=== PATIENT | female | born 1970 | race Caucasian/White ===

== ENCOUNTER 2019-11-28 14:51 | Emergency (ER) | payer OTHER, SELFPAY ==
--- NOTE | ~2019-11-28 | CT_ITS ---
EXAMINATION: CT abdomen pelvis w con EXAM DATE: 11/28/2019 19:39 INDICATION: Epigastric pain. TECHNIQUE: Spiral CT of the abdomen and pelvis was performed following intravenous injection of 100 m L Omnipaque 350. Axial, coronal and sagittal images were reviewed. The dose-length product (DLP) fo r this examination was 1500.73 mGy-cm. The exposure was tailored according to patient size (auto mA exposure control), and iterative reconstruction (ASIR) was used as additional dose reduction techniqu e. Comparison is made to prior examination from 01/30/2019. FINDINGS: The liver, spleen, adrenal glands and pancreas are unremarkable. There are cholecystectomy clips. Portal and splenic veins are patent. Kidneys enhance symmetrically. There is no hydronephr osis. There is IUD which appears to be centrally located within the endometrium, expected position. The bladder is unremarkable. There is no retroperitoneal or pelvic lymphadenopathy. There is mil d scattered arteriosclerotic disease. The appendix is normal. The stomach and small bowel are unremarkable. There is expected amount of c olonic stool. No free intraperitoneal gas. The heart is normal in size. There are no pericardial or pleural effusions. The lung bases are unremarkable. There are no osteoblastic or osteolytic les ions identified. IMPRESSION: 1. No acute intra-abdominal findings. Reviewed, dictated and finalized at location A.
[2019-11-28 14:52] VITALS: BP 180/99; PULSE 128; RESP 18; TEMP 36.4; O2SAT 100
[2019-11-28 15:23] LABS: Basophils Percent Auto 0.1 % (0.2-1.2); Eosinophils Absolute Auto 0.2 K/mm3 (0-0.3); Eosinophils Percent Auto 1.6 % (0-4.4); Hematocrit 47.5 % (37.0-47.0); Hemoglobin 15.8 g/dL (12.0-15.0); Immature Granulocyte Absolute 0.05 K/mm3 (0.00-0.031); Immature Granulocyte Percent A 0.4 % (0-0.5); Lymphocytes Absolute Auto 4.46 K/mm3 (0.9-3.2); Mean Corpuscular HGB Conc 33.3 g/dl (32-36); Mean Corpuscular Hemoglobin 27.4 pg (26-34); Mean Corpuscular Volume 82.5 fl (80-100); Mean Platelet Volume 9.4 fl (7.4-10.4); Monocytes Absolute Auto 0.8 K/mm3 (0.1-0.6); Monocytes Percent Auto 6.8 % (2.6-8.5); Neutrophils Percent Auto 52.1 % (45.5-73.1); Platelet Count Result 245 k/mm3 (150-375); Red Blood Count 5.76 M/mm3 (4.2-5.4); Red Cell Distribution Width 13.5 % (11.5-14.5); White Blood Count 11.4 K/mm3 (4.5-10.0)
[2019-11-28 15:28] LABS: Add Urine Microscopic? YES; Appearance Urine Clear (Clear); Bilirubin Urine Negative (Negative); Blood Urine Negative (Negative); Color Urine Straw (Yellow); Glucose Urine UA 3+ mg/dL (Negative); Ketones Urine Negative (Negative); Leukocyte Esterase Ur Negative LEU/UL (Negative); Mucus Urine Rare /lpf; Nitrate Urine Negative (Negative); Protein Urine Negative (Negative); RBC Urine 0-2 /hpf (0-2); Squamous Epithelial Cell Urine Rare /hpf (Few); Urobilinogen Urine Negative mg/dL (<2.0); WBC Urine 0-3 /hpf
[2019-11-28 15:35] LABS: Specific Grav Ur 1.033 (1.001-1.035)
[2019-11-28 15:42] LABS: Alanine Aminotransferase 20 U/L (4-35); Albumin Level 4.8 g/dL (3.5-5.1); Alkaline Phosphatase 77 U/L (38-126); Aspartate Amino Transferase 24 U/L (14-36); Bilirubin,Total 0.5 mg/dL (0.2-1.3); Blood Urea Nitrogen 12 mg/dL (7-17); Calcium 9.5 mg/dL (8.4-10.2); Carbon Dioxide 26 mmol/L (22-30); Chloride 102 mmol/L (98-107); Estimated CRCL calculation 164 ml/min; Estimated Glomerular Filt Rate > 60; Glucose 143 mg/dL (65-105); Lipase 140 U/L (23-300); Sodium 138 mmol/L (137-145)
--- NOTE | 2019-11-28 17:45 | ED.ABDPAIN ---
HPI - Abdominal Pain General Chief Complaint: Abdominal Pain <MARIO Sharp Last Filed: 11/28/19 20:23> Stated Complaint: abd pain <MARIO Sharp Last Filed: 11/28/19 20:23> Time Seen by Provider: 11/28/19 17:30 <MARIO Sharp Last Filed: 11/28/19 20:23> Source: patient <MARIO Sharp Last Filed: 11/28/19 20:23> Mode of arrival: ambulatory <MARIO Sharp Last Filed: 11/28/19 20:23> Limitations: no limitations <MARIO Sharp Last Filed: 11/28/19 20:23> History of Present Illness HPI narrative: This is a 49 year old female that presents to the ER for upper abdominal pain x 3 weeks. Reports intermittent sharp LUQ abdominal pain. Associated with nausea. Reports sometimes the pain does go up under her left breast. Denies fever, shortness of breath, vomiting, dysuria, or hematuria. <MARIO Sharp Last Filed: 11/28/19 20:23> Related Data Home Medications: Home Medications Medication Instructions Recorded Confirmed ertugliflozin [Steglatro] mg DAILY 11/28/19 fluoxetine mg DAILY 11/28/19 lisinopril DAILY 11/28/19 metformin mg BID 11/28/19 simvastatin mg HS 11/28/19 sitagliptin [Januvia] mg DAILY 11/28/19 <MARIO Sharp Last Filed: 11/28/19 20:23> Allergies/Adverse Reactions: Allergies Allergy/AdvReac Type Severity Reaction Status Date / Time clindamycin Allergy Unknown Hives / Verified 11/28/19 15:45 Red Face sulfamethoxazole Allergy Unknown Rash Verified 11/28/19 15:45 trimethoprim Allergy Unknown Rash Verified 11/28/19 15:45 acetaminophen AdvReac Intermediate Other Verified 11/28/19 15:45 celecoxib AdvReac Mild Unknown Verified 11/28/19 15:45 propoxyphene AdvReac Unknown Unknown Verified 11/28/19 15:45 hydrocodone [From Lortab] AdvReac Unknown Verified 11/28/19 15:45 <Dee Dee Lowe PA-C - Last Filed: 11/28/19 20:23> Review of Systems Review of Systems: Narrative: CONSTITUTIONAL: Denies fever ENT: Denies rhinorrhea, congestion, sore throat CARDIOVASCULAR: Reports chest pain RESPIRATORY: Denies cough or dyspnea. GASTROINTESTINAL: Reports abdominal pain, nausea. Denies vomiting, or diarrhea. GENITOURINARY: Denies dysuria or hematuria. <Dee Dee Lowe PA-C - Last Filed: 11/28/19 20:23> All systems reviewed & are unremarkable except as noted in HPI and below <Dee Dee Lowe PA-C - Last Filed: 11/28/19 20:23> [facility] Past Medical History Medical History: Medical History (Updated 11/29/19 @ 00:00 by Agatha Santos) Diabetes mellitus History of DVT (deep vein thrombosis) History of pulmonary embolism <Dee Dee Lowe PA-C - Last Filed: 11/28/19 20:23> Surgical History Surgical History: Surgical History History of orthopedic surgery <Dee Dee Lowe PA-C - Last Filed: 11/28/19 20:23> Social History Social History: Social History (Updated 07/11/19 @ 17:36 by Rafi Vivas PA-C) Smoking status: Current every day smoker Second hand tobacco smoke exposure: No Smoking end date: 07/20/13 Alcohol intake: current Gender identity (if verbalized by the patient): Female <Dee Dee Lowe PA-C - Last Filed: 11/28/19 20:23> Exam Narrative: Exam Narrative: GENERAL: Well-appearing, obese, and in no acute distress. HEAD: Normocephalic, atraumatic. EYES: EOMI. CHEST: Clear to auscultation. No respiratory distress. No wheezes rales or rhonchi HEART: Regular rate and rhythm. No murmur heard. Normal peripheral pulses. ABDOMEN: Soft, nondistended, normal active bowel sounds. Mild tenderness to palpation of the epigastrium and LUQ without guarding EXTREMITIES: Normal range of motion. No edema. SKIN: Warm, dry, no rash. NEURO: No focal deficits. Alert and oriented x3. PSYCH: Normal mood and affect <Dee Dee Lowe PA-C - Last Filed: 11/28/19 20:23> Course Vital Signs Vital si
--- NOTE | 2019-11-28 17:46 | ECG_ITS ---
Measurements Intervals [place] Rate: 104 P: 54 CA: 182 QRS: 59 QRSD: 85 T: 63 QT: 337 QTc: 444 Interpretive Statements SINUS TACHYCARDIA ABNORMAL ECG Electronically Signed On 11-28-2019 18:12:57 CDT by Cash Lind D.O.
[2019-11-28] MEDS: FAMOTIDINE 20 MG/2 ML VIAL IV PUSH (17:52)
[2019-11-28] MEDS: ONDANSETRON INJ 4 MG/2 ML VIAL IV PUSH (17:52)
[2019-11-28] MEDS: SODIUM CHLORIDE 0.9% IV 500 ML 999 ML IV CONT (17:52)
[2019-11-28] MEDS: KETOROLAC 30 MG/ML VIAL (*BKC) IV PUSH (17:53)
[2019-11-28 18:51] LABS: D Dimer 0.27 ug/mL (<0.48)
[2019-11-28 20:14] VITALS: BP 124/74; PULSE 99; RESP 18; O2SAT 96
[2019-11-28 20:35] VITALS: BP 138/70; PULSE 78; RESP 20; O2SAT 99
== END 2019-11-28 20:36 | disposition home or self-care (01) ==
PROVIDERS: Physician Assistant; Emergency Provider Emergency Medicine; PCP Family Medicine
DX: R10.12 Left upper quadrant pain (principal); E11.9 Type 2 diabetes mellitus without complications; Z86.718 Personal history of other venous thrombosis and embolism; Z86.711 Personal history of pulmonary embolism; Z87.891 Personal history of nicotine dependence; Z79.84 Long term (current) use of oral hypoglycemic drugs; R00.0 Tachycardia, unspecified
CPT/HCPCS: 36415; 74177; 80053; 81001; 81025; 83690; 85025; 85380; 93005; 96361; 96374; 96375; 99284; J1885; J2405; J7040; Q9967

== ENCOUNTER 2020-04-13 17:16 | Emergency (ER) | payer OTHER, SELFPAY ==
--- NOTE | ~2020-04-13 | CT_ITS ---
EXAMINATION: CT abdomen pelvis wo con DATE: 04/13/2020 20:44 INDICATION: Right flank pain TECHNIQUE: Computed tomography (CT) of the abdomen and pelvis was performed without intravenous contr ast. The dose-length product (DLP) was 845.92 mGy-cm. Automated exposure control and iterative recons truction technique were employed. COMPARISON: 11/28/2019 FINDINGS: Minimal dependent atelectasis is present in the lung bases. The heart size is normal. There is a small sliding hiatal hernia. The gallbladder is surgically absent. The liver, spleen, pancreas, and adrenal glands are normal. The kidneys are unremarkable. No stones are identified in the kidneys , ureters, or bladder. There is no hydronephrosis or hydroureter. The appendix is normal. No patholog ically enlarged abdominal or pelvic lymph nodes are identified. There is no free intraperitoneal gas or evidence of bowel obstruction. The IUD has been removed from the uterus. 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 IMPRESSION: 1. No CT correlate for the patient's symptoms. Reviewed, dictated and finalized at location A.
[2020-04-13 17:41] VITALS: BP 141/88; PULSE 115; RESP 18; TEMP 36.7; O2SAT 99
[2020-04-13 18:20] LABS: Basophils Percent Auto 0.3 % (0.2-1.2); Eosinophils Absolute Auto 0.2 K/mm3 (0-0.3); Hematocrit 45.6 % (37.0-47.0); Immature Granulocyte Absolute 0.05 K/mm3 (0.00-0.031); Immature Granulocyte Percent A 0.5 % (0-0.5); Lymphocytes Absolute Auto 4.24 K/mm3 (0.9-3.2); Lymphocytes Percent Auto 39.5 % (18.3-44.2); Mean Corpuscular HGB Conc 32.9 g/dl (32-36); Mean Corpuscular Hemoglobin 27.6 pg (26-34); Mean Corpuscular Volume 83.8 fl (80-100); Mean Platelet Volume 10.7 fl (7.4-10.4); Monocytes Absolute Auto 0.9 K/mm3 (0.1-0.6); Monocytes Percent Auto 8.4 % (2.6-8.5); Neutrophils Absolute Auto 5.3 K/mm3 (1.3-6.7); Neutrophils Percent Auto 49.3 % (45.5-73.1); Platelet Count Result 239 k/mm3 (150-375); Red Blood Count 5.44 M/mm3 (4.2-5.4); Red Cell Distribution Width 13.2 % (11.5-14.5); White Blood Count 10.7 K/mm3 (4.5-10.0)
[2020-04-13 18:22] LABS: Add Urine Microscopic? YES; Appearance Urine Clear (Clear); Bilirubin Urine Negative (Negative); Blood Urine Negative (Negative); Color Urine Straw (Yellow); Glucose Urine UA 3+ mg/dL (Negative); Ketones Urine Negative (Negative); Leukocyte Esterase Ur Negative LEU/UL (Negative); Mucus Urine Rare /lpf; Nitrate Urine Negative (Negative); Protein Urine Negative (Negative); RBC Urine 0-2 /hpf (0-2); Specific Grav Ur 1.017 (1.001-1.035); Squamous Epithelial Cell Urine Rare /hpf (Few); Urobilinogen Urine Negative mg/dL (<2.0); WBC Urine 0-3 /hpf
[2020-04-13 18:31] LABS: Anion Gap 9 mmol/L (8-16); Blood Urea Nitrogen 19 mg/dL (7-17); Calcium 9.7 mg/dL (8.4-10.2); Carbon Dioxide 24 mmol/L (22-30); Chloride 100 mmol/L (98-107); Estimated CRCL calculation 162 ml/min; Estimated Glomerular Filt Rate > 60; Glucose 327 mg/dL (65-105); Potassium 3.9 mmol/L (3.4-5.0); Sodium 133 mmol/L (137-145)
[2020-04-13 19:24] VITALS: BP 142/95; PULSE 113; RESP 18; TEMP 36.8; O2SAT 99
[2020-04-13 19:41] LABS: Lipase 227 U/L (23-300)
[2020-04-13 20:42] LABS: Alanine Aminotransferase 20 U/L (4-35); Alkaline Phosphatase 69 U/L (38-126); Aspartate Amino Transferase 21 U/L (14-36)
--- NOTE | 2020-04-13 20:47 | ED.ABDPAIN ---
HPI - Abdominal Pain General Chief Complaint: Abdominal Pain Stated Complaint: rt flank pain, rt abd pain, dark urine Time Seen by Provider: 04/13/20 19:20 Source: patient Mode of arrival: ambulatory Limitations: no limitations History of Present Illness HPI narrative: Patient presents with chief complaint of right upper quadrant abdominal pain that has been present for the past 3 weeks and worsens when she eats drinks or uses the bathroom. Patient states that she has not seen her primary care Dr. Kirkpatrick because the last time she was there she went off on his nurse for being made to see the Nurse Practitioner. Patient denies fever, chills, vomiting, diarrhea, cough, shortness of breath, chest pain, back injury. Patient states her urine has been darker and she has noticed some urgency, but denies pain with urination. She reports her symptoms worsens when she eats, so she has to be selective with food and occasionally vomits. She has been able to keep down most of her foods and a lot of fluids. Related Data Home Medications Medication Instructions Recorded Confirmed lisinopril DAILY 11/28/19 metformin mg BID 11/28/19 simvastatin mg HS 11/28/19 sitagliptin [Januvia] mg DAILY 11/28/19 insulin lispro [Admelog U-100 04/13/20 Insulin lispro] liraglutide [Victoza 2-Edward] mg SUBCUT 04/13/20 simvastatin mg 04/13/20 Allergies Allergy/AdvReac Type Severity Reaction Status Date / Time clindamycin Allergy Unknown Hives / Verified 04/13/20 19:34 Red Face sulfamethoxazole Allergy Unknown Rash Verified 04/13/20 19:34 trimethoprim Allergy Unknown Rash Verified 04/13/20 19:34 celecoxib AdvReac Mild Unknown Verified 04/13/20 19:34 propoxyphene AdvReac Unknown Unknown Verified 04/13/20 19:34 hydrocodone [From Lortab] AdvReac Unknown Verified 04/13/20 19:34 Review of Systems Review of Systems: Narrative: CONSTITUTIONAL: Denies fever, chills, or sweats. EYES: Denies visual changes, redness, or discharge. ENT: Denies rhinorrhea, congestion, sore throat, or otalgia. CARDIOVASCULAR: Denies chest pain, palpitations, or edema. RESPIRATORY: Denies cough or dyspnea. GASTROINTESTINAL: Reports abdominal pain, nausea, reports occasional vomiting Denies diarrhea. GENITOURINARY: Denies dysuria or hematuria. SKIN: Denies rash or itching. MUSCULOSKELETAL: Denies back pain, myalgia, or joint pain NEUROLOGIC: Denies headache, numbness, dizziness, or weakness. PSYCHIATRIC: Denies anxiety or depression. [facility] Past Medical History Medical History (Updated 04/13/20 @ 21:05 by Luba Montez PA-C) Diabetes mellitus History of DVT (deep vein thrombosis) History of pulmonary embolism Surgical History Surgical History History of orthopedic surgery Social History Social History (Updated 07/11/19 @ 17:36 by Rafi Vivas PA-C) Smoking status: Current every day smoker Second hand tobacco smoke exposure: No Smoking end date: 07/20/13 Alcohol intake: current Gender identity (if verbalized by the patient): Female Exam Narrative: Exam Narrative: GENERAL: Well-appearing, well-nourished. HEAD: Normocephalic, atraumatic. EYES: PERRLA and EOMI. ENT: Nares clear, no rhinorrhea or epistaxis. Mucous membranes moist. Oropharynx without tonsillar hypertrophy exudate or other lesions. Bilateral TMs pearly trammell nonbulging NECK: Supple. No adenopathy or masses. No vertebral tenderness or loss of ROM. CHEST: Clear to auscultation. No respiratory distress. No wheezes rales or rhonchi HEART: Regular rate and rhythm. Normal peripheral pulses. ABDOMEN: Soft, diffuse abdominal tenderness with palpation, nondistended, normal active bowel sounds. No bruises noted. EXTREMITIES: No acute changes in ROM. No edema. SKIN: Warm, dry, no rash. NEURO: No focal deficits. Alert and oriented x3. PSYCH: Normal mood and affect. Course Course Emergency Course: Patient now reports that s
[2020-04-13 21:09] VITALS: BP 130/80; PULSE 103; RESP 20; O2SAT 96
[2020-04-13] MEDS: KETOROLAC 15 MG/ML VIAL (*BKC) IV PUSH (21:53)
[2020-04-13] MEDS: PANTOPRAZOLE SODIUM IV 40 MG VIAL IV PUSH (21:54)
[2020-04-13 22:18] VITALS: BP 129/78; PULSE 104; RESP 18; TEMP 36.6; O2SAT 99
== END 2020-04-13 22:21 | disposition home or self-care (01) ==
PROVIDERS: Emergency Medicine; Physician Assistant; Emergency Provider Emergency Medicine; PCP Family Medicine
DX: R10.11 Right upper quadrant pain (principal); Z79.4 Long term (current) use of insulin; Z79.84 Long term (current) use of oral hypoglycemic drugs; E11.9 Type 2 diabetes mellitus without complications; Z86.718 Personal history of other venous thrombosis and embolism; Z86.711 Personal history of pulmonary embolism; F17.200 Nicotine dependence, unspecified, uncomplicated
CPT/HCPCS: 36415; 74176; 80048; 81001; 83690; 84075; 84450; 84460; 85025; 96374; 96375; 99284; C9113; J1885

== ENCOUNTER 2020-05-20 08:29 | Emergency (ER) | payer OTHER, SELFPAY ==
[2020-05-20 08:38] VITALS: BP 172/90; PULSE 110; RESP 18; TEMP 37.8; O2SAT 100
--- NOTE | 2020-05-20 08:52 | ED.GENADULT ---
HPI - General Adult General Chief complaint: Skin/Abscess/Foreign Body Stated complaint: Hives Source: patient Mode of arrival: ambulatory Limitations: no limitations History of Present Illness HPI narrative: Patient presents for evaluation of pruritus and hives since 0200 this morning. No new lotions, soaps, detergents, topical products, foods. No history of similar symptoms. Denies any difficulty breathing or swallowing. She took some Benadryl at the time of symptom onset and symptoms have persisted. She does have an underlying history of diabetes but is compliant with Metformin and Januvia. She also has an insulin pump. No additional complaints or concerns. Blood sugars have been running around 200. She states she was recently seen by GI Who believes that she may have ulcerative colitis. She has not undergone EGD or colonoscopy as of yet. Related Data Home Medications Medication Instructions Recorded Confirmed lisinopril DAILY 11/28/19 metformin mg BID 11/28/19 simvastatin mg HS 11/28/19 sitagliptin [Januvia] mg DAILY 11/28/19 insulin lispro [Admelog U-100 04/13/20 Insulin lispro] liraglutide [Victoza 2-Edward] mg SUBCUT 04/13/20 simvastatin mg 04/13/20 Allergies Allergy/AdvReac Type Severity Reaction Status Date / Time clindamycin Allergy Unknown Hives / Verified 05/20/20 08:42 Red Face sulfamethoxazole Allergy Unknown Rash Verified 05/20/20 08:42 trimethoprim Allergy Unknown Rash Verified 05/20/20 08:42 celecoxib AdvReac Mild Unknown Verified 05/20/20 08:42 propoxyphene AdvReac Unknown Unknown Verified 05/20/20 08:42 hydrocodone [From Lortab] AdvReac Unknown Verified 05/20/20 08:42 Review of Systems Review of Systems: Narrative: CONSTITUTIONAL: Denies fever, chills, or sweats. EYES: Denies visual changes, redness, or discharge. ENT: Denies rhinorrhea, congestion, sore throat, or otalgia. CARDIOVASCULAR: Denies chest pain, palpitations, or edema. RESPIRATORY: Denies cough or dyspnea. GASTROINTESTINAL: Denies abdominal pain, nausea, vomiting, or diarrhea. GENITOURINARY: Denies dysuria or hematuria. SKIN: Reports pruritis and hives to bilateral upper extremities, bilateral lower extremities, and trunk MUSCULOSKELETAL: Denies back pain, joint pain, or myalgia. NEUROLOGIC: Denies headache, numbness, dizziness, or weakness. PSYCHIATRIC: Denies anxiety or depression. [facility] Past Medical History Medical History (Updated 05/20/20 @ 09:02 by JADE Chester, KENZIE) Diabetes mellitus History of DVT (deep vein thrombosis) History of pulmonary embolism Hyperlipidemia Hypertension Surgical History Surgical History History of bilateral knee replacement History of cholecystectomy History of orthopedic surgery History of tonsillectomy Family History Family History Mother No problems noted. Social History Social History Smoking status: Current every day smoker Second hand tobacco smoke exposure: No Smoking end date: 07/20/13 Alcohol intake: current Substance use: never Living arrangements: with family Gender identity (if verbalized by the patient): Female Sexual Orientation (if Verbalized by the Patient): Straight or Heterosexual Comments Pt is unaware of maternal or paternal medical history as pt was adopted Exam Narrative: Exam Narrative: GENERAL: Well-appearing, well-nourished, and in no acute distress. HEAD: Normocephalic, atraumatic. EYES: PERRLA and EOMI. ENT: Nares clear, no rhinorrhea or epistaxis. Mucous membranes moist. Oropharynx without tonsillar hypertrophy exudate or other lesions. Bilateral TMs pearly trammell nonbulging. No posterior pharyngeal swelling NECK: Supple. No adenopathy or masses. No carotid bruits or JVD CHEST: Clear to auscultation. No respiratory distress
[2020-05-20] MEDS: methylPREDNISolone SOD SUCC 125 MG VIAL IM (09:07)
== END 2020-05-20 09:24 | disposition home or self-care (01) ==
PROVIDERS: Emergency Provider Nurse Practitioner; PCP Family Medicine
DX: L23.9 Allergic contact dermatitis, unspecified cause (principal); F17.200 Nicotine dependence, unspecified, uncomplicated; Z96.653 Presence of artificial knee joint, bilateral; E11.9 Type 2 diabetes mellitus without complications; Z86.718 Personal history of other venous thrombosis and embolism; Z86.711 Personal history of pulmonary embolism; E78.5 Hyperlipidemia, unspecified; I10 Essential (primary) hypertension
CPT/HCPCS: 96372; 99213; G0463; J2930

== ENCOUNTER 2020-11-09 08:17 | Emergency (ER) | payer OTHER, SELFPAY ==
--- NOTE | ~2020-11-09 | XR_ITS ---
XR chest 2V DATE: 11/09/2020 08:49 INDICATION: Cough TECHNIQUE: 2 views COMPARISON: 07/13/2011 2 view chest FINDINGS: Normal heart size. Aortic arch calcification. No hilar or mediastinal enlargement. No pulmo nary infiltrate or consolidation, pleural effusion or pulmonary vascular congestion or pneumothorax. Included skeletal structures are unremarkable other than mild degenerative spurring of the thoracic s pine. IMPRESSION: No active cardiopulmonary disease Reviewed, dictated and finalized at location A.
--- NOTE | 2020-11-09 08:35 | ED.URI ---
HPI - URI/Sore Throat General Chief Complaint: Upper Respiratory Infection Stated Complaint: Congestion Time Seen by Provider: 11/09/20 08:27 Source: patient and RN notes reviewed Mode of arrival: ambulatory Limitations: no limitations History of Present Illness HPI Narrative: Patient presents today with 3-day history of nasal congestion, fever up to 100.4, nonproductive cough, body aches, sore throat, shortness of breath, decreased taste. Fever just appeared yesterday. Denies rhinorrhea, nausea, vomiting, diarrhea. Denies history of asthma or COPD. She smokes approximately 6 cigarettes/day. 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 She has had her 2 course vaccine of COVID-19. Last vaccine was approximately 2 weeks ago. Patient started Mucinex and Sudafed yesterday without much relief. Does report history of seasonal allergies, but does not currently take any allergy medication. MD elicited complaint: fever, cough and nasal congestion Related Data Home Medications Medication Instructions Recorded Confirmed lisinopril DAILY 11/28/19 metformin mg BID 11/28/19 simvastatin mg HS 11/28/19 sitagliptin [Januvia] mg DAILY 11/28/19 insulin lispro [Admelog U-100 04/13/20 Insulin lispro] liraglutide [Victoza 2-Edward] mg SUBCUT 04/13/20 simvastatin mg 04/13/20 Allergies Allergy/AdvReac Type Severity Reaction Status Date / Time clindamycin Allergy Unknown Hives / Verified 05/20/20 08:42 Red Face sulfamethoxazole Allergy Unknown Rash Verified 05/20/20 08:42 trimethoprim Allergy Unknown Rash Verified 05/20/20 08:42 celecoxib AdvReac Mild Unknown Verified 05/20/20 08:42 propoxyphene AdvReac Unknown Unknown Verified 05/20/20 08:42 hydrocodone [From Lortab] AdvReac Unknown Verified 05/20/20 08:42 Review of Systems Review of Systems: Narrative: CONSTITUTIONAL: Denies chills, or sweats. + Aches, fever EYES: Denies visual changes, redness, or discharge. ENT: Denies rhinorrhea, or otalgia.+ Nasal congestion, sore throat, decreased taste CARDIOVASCULAR: Denies chest pain, palpitations, or edema. RESPIRATORY: + Nonproductive cough, shortness of breath GASTROINTESTINAL: Denies abdominal pain, nausea, vomiting, or diarrhea. GENITOURINARY: Denies dysuria or hematuria. SKIN: Denies rash, itching, or wounds. MUSCULOSKELETAL: Denies back pain, joint pain, or myalgia. NEUROLOGIC: Denies headache, numbness, tingling, or weakness. PSYCH: Denies depression or anxiety. [facility] Past Medical History Medical History Diabetes mellitus History of DVT (deep vein thrombosis) History of pulmonary embolism Hyperlipidemia Hypertension Surgical History Surgical History History of bilateral knee replacement History of cholecystectomy History of orthopedic surgery History of tonsillectomy Family History Family History Mother No problems noted. Social History Social History Smoking status: Current every day smoker Second hand tobacco smoke exposure: No Smoking end date: 07/20/13 Alcohol intake: current Substance use: never Gender identity (if verbalized by the patient): Female Comments At time of signature, I have reviewed and agree with nursing past medical, surgical, social and family history unless otherwise noted. Please see nursing chart for further information. There is no relevant family history pertinent to the presenting complaint Exam Narrative: Exam Narrative: GENERAL: Ill-appearing, well-nourished, and in no acute distress. HEAD: Normocephalic, atraumatic. EYES: EOMI. No redness or drainage. Conjunctivae normal. ENT: Mucous membranes pink and moist. Nares congested. No rhinorrhea. TMs normal bilaterally. Throat mildly erythematous without edema or exudate. Uvula midli
[2020-11-09] MEDS: IPRATROPIUM BR 0.02% INH SOLN 0.5 MG/2.5 ML VIAL INHALATION (08:49)
[2020-11-09] MEDS: ALBUTEROL SULFATE NEB 2.5 MG/3 ML INH INHALATION (08:50)
[2020-11-09 09:30] VITALS: PULSE 113; RESP 20; O2SAT 96
[2020-11-09 09:34] VITALS: PULSE 112; RESP 20; O2SAT 96
== END 2020-11-09 09:40 | disposition home or self-care (01) ==
PROVIDERS: Emergency Provider Nurse Practitioner; PCP Family Medicine
DX: J40 Bronchitis, not specified as acute or chronic (principal); J06.9 Acute upper respiratory infection, unspecified; Z20.822 Contact with and (suspected) exposure to COVID-19; F17.200 Nicotine dependence, unspecified, uncomplicated; Z96.653 Presence of artificial knee joint, bilateral; Z86.718 Personal history of other venous thrombosis and embolism; Z86.711 Personal history of pulmonary embolism; E78.5 Hyperlipidemia, unspecified; I10 Essential (primary) hypertension; E11.9 Type 2 diabetes mellitus without complications
CPT/HCPCS: 71046; 87426; 87804; 94640; 99213; C9803; G0463

== ENCOUNTER 2020-12-17 09:03 | Emergency (ER) | payer OTHER, SELFPAY ==
[2020-12-17 09:11] VITALS: BP 149/90; PULSE 122; RESP 18; TEMP 36.9; O2SAT 97
[2020-12-17 09:23] VITALS: BP 149/90; PULSE 122; RESP 18; TEMP 36.9; O2SAT 97
--- NOTE | 2020-12-17 09:32 | PC.NURSE ---
0915- Red raised bumps noted to bilateral sides of feet, primarily on left in varying stages. Some pink, some red and many scabbed.
--- NOTE | 2020-12-17 09:40 | ED.SKABFB ---
HPI - Skin/Abscess/Foreign Bdy General Chief complaint: Skin/Abscess/Foreign Body Stated complaint: Blisters on foot Source: patient and RN notes reviewed Limitations: no limitations History of Present Illness HPI narrative: The patient, who is diabetic, presents with recurrent skin eruption. Patient states she has 1-week history of bilateral mostly extensor foot eruption that is blistery, itchy occasionally and associated with scant clear drainage. She has had similar episodes on her fingers. Symptoms are mild, worse with scratching. Discussed possible causes [infection, diabetic dermopathy, dyshidrosis, vasculitis, folliculitis, etc.] and will treat broadly. Patient advised to follow-up [foot doctor., Wound care clinic, etc.] Related Data Home Medications Medication Instructions Recorded Confirmed lisinopril 10 mg PO DAILY 11/28/19 12/17/20 metformin 1,000 mg PO BID 11/28/19 12/17/20 insulin lispro [Admelog U-100 120 unit SUBCUT DAILY 04/13/20 12/17/20 Insulin lispro] liraglutide [Victoza 2-Edward] 1.2 mg SUBCUT DAILY 04/13/20 12/17/20 ertugliflozin [Steglatro] 15 mg PO DAILY 12/17/20 12/17/20 simvastatin 20 mg PO DAILY 12/17/20 12/17/20 sucralfate [Carafate] 1 g PO QID 12/17/20 12/17/20 Allergies Allergy/AdvReac Type Severity Reaction Status Date / Time clindamycin Allergy Unknown Hives / Verified 12/17/20 09:24 Red Face sulfamethoxazole Allergy Unknown Vomiting Verified 12/17/20 09:24 trimethoprim Allergy Unknown Vomiting Verified 12/17/20 09:24 celecoxib AdvReac Mild Unknown Verified 12/17/20 09:24 propoxyphene AdvReac Unknown Nausea and Verified 12/17/20 09:24 Vomiting hydrocodone [From Lortab] AdvReac Nausea and Verified 12/17/20 09:24 Vomiting Review of Systems Review of Systems: Narrative: General/Constitutional: No weight loss,fever Eyes: N0: Redness,discharge Ears/Nose/Throat: No: Epistaxis,ear discharge Respiratory: Denies: Hemoptysis Gastrointestinal: No Vomiting, Bleeding-rectal Skin: No Lumps, REPORTS eruption Neurologic: No Focal Weakness,Sz Hematologic: Denies: Petechiae/Purpura Psychiatric: No: Suicida ideationl All Other Systems: Reviewed and Negative [facility] Past Medical History Medical History Diabetes mellitus History of DVT (deep vein thrombosis) History of pulmonary embolism Hyperlipidemia Hypertension Surgical History Surgical History History of bilateral knee replacement History of cholecystectomy History of orthopedic surgery History of tonsillectomy Family History Family History Mother No problems noted. Social History Social History Smoking status: Current every day smoker Second hand tobacco smoke exposure: No Smoking end date: 07/20/13 Alcohol intake: current Substance use: never Gender identity (if verbalized by the patient): Female Comments At time of signature, agree with nursing past medical, surgical, social and family history. There is no relevant family history pertinent to the presenting complaint Exam Narrative: Exam Narrative: General Appearance: Obese, normocephalic Eye: PERRLA, Conjunctiva clear Ear: External ear normal Nose: Normal nose, Nare clear Mouth/Throat: Normal appearing Neck Exam: Supple Respiratory: Airway patent, No respiratory distress Musculoskeletal: Moves all extremities, Non tender Skin: Warm, Dry (small, isolated macular papular skin and PV eruption of extensor and lateral foot, somewhat sparing soles) Neurological: A&O x3 Psychiatric: Normal mood, Normal affect Course Vital Signs Vital signs: Vital Signs Temperature 98.4 F 12/17/20 09:11 Pulse Rate 122 H 12/17/20 09:11 Respiratory Rate 18 12/17/20 09:11 Blood Pressure 149/90 H
== END 2020-12-17 10:00 | disposition home or self-care (01) ==
PROVIDERS: Emergency Provider Emergency Medicine; PCP Family Medicine
DX: E11.628 Type 2 diabetes mellitus with other skin complications (principal); L29.9 Pruritus, unspecified; F17.200 Nicotine dependence, unspecified, uncomplicated; Z86.718 Personal history of other venous thrombosis and embolism; Z86.711 Personal history of pulmonary embolism; E78.5 Hyperlipidemia, unspecified; I10 Essential (primary) hypertension; Z96.653 Presence of artificial knee joint, bilateral
CPT/HCPCS: 99213; G0463

== ENCOUNTER → 2021-03-09 01:51 | Outpatient (CLI) | payer OTHER, SELFPAY ==
[2021-03-10 01:35] LABS: SARS-CoV-2 RNA PCR Negative
== END ==
PROVIDERS: PCP Family Medicine; Visit Provider Family Medicine
DX: R68.89 Other general symptoms and signs (principal); Z20.822 Contact with and (suspected) exposure to COVID-19
CPT/HCPCS: C9803; U0003; U0005

== ENCOUNTER 2021-03-14 11:12 | Outpatient (CLI) | payer OTHER, SELFPAY ==
--- NOTE | ~2021-03-14 | XR_ITS ---
EXAMINATION: XR hip LT min 2V DATE: 03/14/2021 11:53 INDICATION: Left hip pain. TECHNIQUE: 3 views of left hip were obtained. COMPARISON: None. FINDINGS: Bone alignment is normal. No fracture. There is mild left hip osteoarthritis characterized by tiny marginal osteophytes. No joint space narrowing. IMPRESSION: 1. Mild left hip osteoarthritis. Reviewed, dictated and finalized at location A.
--- NOTE | ~2021-03-14 | XR_ITS ---
EXAMINATION: XR hip RT min 2V DATE: 03/14/2021 11:53 INDICATION: Right hip pain. TECHNIQUE: 3 views of right hip were obtained. COMPARISON: Right hip radiographs 05/16/2014 FINDINGS: Bone alignment is normal. No fracture. Right hip joint space is normal. IMPRESSION: 1. Normal right hip. Reviewed, dictated and finalized at location A. IMPRESSION: 1. Normal right hip.
--- NOTE | ~2021-03-14 | XR_ITS ---
XR cervical spine 4-5V DATE: 03/14/2021 11:53 INDICATION: Chronic neck pain, numbness. No injury. TECHNIQUE: AP, open-mouth, lateral, swimmer views COMPARISON: 11/05/2015 CT cervical spine FINDINGS: C1 and C2 are normally aligned and the odontoid process is intact. No fracture or dislocati on or locked facet or prevertebral soft tissue swelling. The cervical interspaces are well preserved. IMPRESSION: Negative Reviewed, dictated and finalized at location A. IMPRESSION: Negative
[2021-03-14 13:33] LABS: Basophils Percent Auto 0.3 % (0.2-1.2); Eosinophils Absolute Auto 0.3 K/mm3 (0-0.3); Eosinophils Percent Auto 3.7 % (0-4.4); Hematocrit 48.6 % (37.0-47.0); Hemoglobin 15.5 g/dL (12.0-15.0); Immature Granulocyte Absolute 0.04 K/mm3 (0.00-0.031); Immature Granulocyte Percent A 0.5 % (0-0.5); Lymphocytes Absolute Auto 3.42 K/mm3 (0.9-3.2); Lymphocytes Percent Auto 38.6 % (18.3-44.2); Mean Corpuscular HGB Conc 31.9 g/dl (32-36); Mean Corpuscular Hemoglobin 27.4 pg (26-34); Mean Corpuscular Volume 85.9 fl (80-100); Mean Platelet Volume 10.6 fl (7.4-10.4); Monocytes Absolute Auto 0.6 K/mm3 (0.1-0.6); Monocytes Percent Auto 6.8 % (2.6-8.5); Neutrophils Absolute Auto 4.4 K/mm3 (1.3-6.7); Neutrophils Percent Auto 50.1 % (45.5-73.1); Platelet Count Result 273 k/mm3 (150-375); Red Blood Count 5.66 M/mm3 (4.2-5.4); Red Cell Distribution Width 13.5 % (11.5-14.5); White Blood Count 8.9 K/mm3 (4.5-10.0)
[2021-03-14 13:50] LABS: Alanine Aminotransferase 21 U/L (4-35); Albumin Level 4.7 g/dL (3.5-5.1); Alkaline Phosphatase 64 U/L (38-126); Anion Gap 10 mmol/L (8-16); Aspartate Amino Transferase 25 U/L (14-36); Bilirubin,Total 0.6 mg/dL (0.2-1.3); Blood Urea Nitrogen 11 mg/dL (7-17); CRP < 0.5 mg/dL (<1.0); Calcium 9.5 mg/dL (8.4-10.2); Carbon Dioxide 26 mmol/L (22-30); Chloride 103 mmol/L (98-107); Creatine Kinase 44 U/L (30-135); Estimated Glomerular Filt Rate > 60; Glucose 106 mg/dL (65-110); Sodium 139 mmol/L (137-145); Uric Acid 3.5 mg/dL (2.5-7.5)
[2021-03-14 13:55] LABS: Complement C3 144 mg/dL (88-165); Rheumatoid Factor < 8.6 IU/ML (<12)
[2021-03-14 14:16] LABS: Free T4 Free Thyroxine 0.87 ng/mL (0.78-2.19); Vitamin D 25 Hydroxy 28.1 ng/mL
[2021-03-14 14:19] LABS: Thyroid Stimulating Hormone 0.919 uIU/mL (0.465-4.680)
[2021-03-14 14:23] LABS: Erythrocyte Sedimentation Rate 8 mm/hr (0-20)
[2021-03-14 14:31] LABS: Hepatitis B Surface Antigen Negative (Negative)
[2021-03-14 14:49] LABS: Hepatitis C Virus Antibody Negative (Negative)
[2021-03-14 14:53] LABS: Folic Acid 13.4 ng/mL (2.76->20)
[2021-03-17 13:43] LABS: Anti Centromere B Antibody <1.0; Chromatin Antibody <1.0; RNP Antibodies <1.0; SS-A <1.0; SS-B <1.0
[2021-03-17 13:45] LABS: Complement Total CH50 >60 U/mL (31-60)
[2021-03-18 14:15] LABS: Scleroderma 70 Antibody <1.0
== END 2021-03-14 11:13 | disposition home or self-care (01) ==
PROVIDERS: PCP Family Medicine; Visit Provider Nurse Practitioner
DX: M54.2 Cervicalgia (principal); R20.0 Anesthesia of skin; M16.12 Unilateral primary osteoarthritis, left hip
CPT/HCPCS: 36415; 72050; 73502; 80053; 82306; 82550; 82607; 82746; 84439; 84443; 84480; 84550; 85025; 85652; 86038; 86140; 86160; 86162; 86225; 86235; 86430; 86698; 86803; 87340

== ENCOUNTER 2021-06-14 11:44 | Emergency (ER) | payer OTHER, SELFPAY ==
--- NOTE | ~2021-06-14 | CT_ITS ---
EXAMINATION: CT abdomen pelvis w con DATE: 06/14/2021 13:45 INDICATION: Left flank pain TECHNIQUE: Computed tomography (CT) of the abdomen and pelvis was performed with 100 mL Omnipaque-350 intravenous contrast. Automated exposure control and iterative reconstruction technique were employe d. The dose-length product was 1522.08 mGy-cm. COMPARISON: 04/13/2020 FINDINGS: Lung bases are clear. Heart size is normal. Atherosclerotic coronary artery calcific location. No per icardial or pleural effusion. Small region of focal hepatic steatosis at the ligamentum teres. Cholec ystectomy clips at the gallbladder fossa. Spleen, pancreas, bilateral adrenal glands and kidneys are normal. Bowels including appendix are normal. Bladder, anteverted uterus and bilateral adnexa are nor mal. Trace amount of likely physiologic free fluid in the cul-de-sac. No abscess or free intraperiton eal gas. No pathologically enlarged abdominal or pelvic lymphadenopathy. Hypoplastic riblets at T12 a nd transitional sacralized L5 lumbar segment. Mild to moderate lower lumbar spondylosis with severe m id to lower lumbar facet osteoarthritis. IMPRESSION: 1. No acute intra-abdominal/pelvic process. Reviewed, dictated and finalized at location A. [employer]
[2021-06-14 11:51] VITALS: BP 149/75; PULSE 116; RESP 20; TEMP 36.2; O2SAT 100
--- NOTE | 2021-06-14 12:10 | ED.GENADULT ---
HPI - General Adult General Chief complaint: Back Pain/Injury Stated complaint: back pain Time Seen by Provider: 06/14/21 12:01 Source: RN notes reviewed History of Present Illness HPI narrative: Patient presents emergency department from home for left flank pain. Patient states pain began last night. Located in the left flank and radiates around the left side of the abdomen described as sharp and stabbing associated with nausea and vomiting. Patient denies any fevers or chills chest pain shortness of breath or diarrhea. States she not take anything for pain at home. Denies any previous history of kidney stone Related Data Home Medications Medication Instructions Recorded Confirmed ertugliflozin [Steglatro] mg 06/14/21 fluoxetine mg 06/14/21 gabapentin 06/14/21 insulin lispro [Admelog U-100 06/14/21 Insulin lispro] lisinopril 06/14/21 metformin mg 06/14/21 pioglitazone mg 06/14/21 simvastatin mg 06/14/21 sitagliptin [Januvia] mg 06/14/21 Allergies Allergy/AdvReac Type Severity Reaction Status Date / Time clindamycin Allergy Unknown Hives / Verified 12/17/20 09:24 Red Face sulfamethoxazole Allergy Unknown Vomiting Verified 12/17/20 09:24 trimethoprim Allergy Unknown Vomiting Verified 12/17/20 09:24 celecoxib AdvReac Mild Unknown Verified 12/17/20 09:24 propoxyphene AdvReac Unknown Nausea and Verified 12/17/20 09:24 Vomiting hydrocodone [From Lortab] AdvReac Nausea and Verified 12/17/20 09:24 Vomiting Review of Systems Review of Systems: Gen.: Denies fevers or chills ENT: Denies congestion Respiratory: Denies shortness of breath or cough CV: Denies chest pain or palpitations GI: See HPI denies burning, urgency, frequency or hematuria denies bowel or bladder incontinence Musculoskeletal: Denies back pain or muscle pain Neuro: Denies numbness, tingling, weakness or focal weakness Skin: Denies rash Except as documented, all other systems reviewed and negative PMFSH Past Medical History Medical History Diabetes mellitus History of DVT (deep vein thrombosis) History of pulmonary embolism Hyperlipidemia Hypertension Surgical History Surgical History History of bilateral knee replacement History of cholecystectomy History of orthopedic surgery History of tonsillectomy Family History Family History Mother No problems noted. Social History Social History Smoking status: Current every day smoker Second hand tobacco smoke exposure: No Smoking end date: 07/20/13 Alcohol intake: current Substance use: never Gender identity (if verbalized by the patient): Female Sexual Orientation (if Verbalized by the Patient): Straight or Heterosexual Exam Narrative: APPEARANCE: No acute distress, nontoxic, resting in bed EYES: EOMI HEENT: Normocephalic, atraumatic, OMM RESPIRATORY: No respiratory distress Clear to auscultation bilaterally with no rhonchi wheezing or rales. CARDIOVASCULAR: Regular rate and rhythm without murmurs rubs or gallops. ABDOMINAL: Soft, nondistended tender palpation left lower quadrant left lower quadrant no tenderness right quadrant right lower quadrant no rebound or guarding left flank tenderness with positive percussion tenderness left flank pain increased with forward flexion rotation of the torso MUSCULOSKELETAl: Moves all extremities. No clubbing, cyanosis or edema. NEURO: Awake and alert. Following commands, speech normal, no focal deficits SKIN:: Warm, dry. No rashes lesions or abrasions PSYCHIATRIC: Normal affect/mood, Course Course Emergency Course: Discussed with patient results of workup and diagnosis. Discussed need for follow-up with primary care, proper use of medication, and reasons to return to the [facility]
[2021-06-14] MEDS: SODIUM CHLORIDE 0.9% IV 1,000 ML 999 ML IV CONT (12:24)
[2021-06-14] MEDS: ONDANSETRON INJ 4 MG/2 ML VIAL IV PUSH (12:24)
[2021-06-14] MEDS: KETOROLAC 30 MG/ML VIAL (*BKC) IV PUSH (12:25)
[2021-06-14 12:32] LABS: Add Urine Microscopic? YES; Appearance Urine Clear (Clear); Bilirubin Urine Negative (Negative); Blood Urine Negative (Negative); Color Urine Straw (Yellow); Glucose Urine UA 3+ mg/dL (Negative); Ketones Urine Negative (Negative); Leukocyte Esterase Ur Negative LEU/UL (Negative); Mucus Urine Rare /lpf; Nitrate Urine Negative (Negative); Protein Urine Negative (Negative); RBC Urine 0-2 /hpf (0-2); Squamous Epithelial Cell Urine Occasional /hpf (Few); Urobilinogen Urine Negative mg/dL (<2.0); WBC Urine 0-3 /hpf
[2021-06-14 12:33] LABS: Basophils Percent Auto 0.2 % (0.2-1.2); Eosinophils Absolute Auto 0.2 K/mm3 (0-0.3); Eosinophils Percent Auto 1.5 % (0-4.4); Hematocrit 46.2 % (37.0-47.0); Hemoglobin 15.3 g/dL (12.0-15.0); Immature Granulocyte Absolute 0.03 K/mm3 (0.00-0.031); Immature Granulocyte Percent A 0.3 % (0-0.5); Lymphocytes Percent Auto 36.6 % (18.3-44.2); Mean Corpuscular HGB Conc 33.1 g/dl (32-36); Mean Corpuscular Hemoglobin 28.2 pg (26-34); Mean Corpuscular Volume 85.2 fl (80-100); Monocytes Absolute Auto 0.9 K/mm3 (0.1-0.6); Monocytes Percent Auto 8.6 % (2.6-8.5); Neutrophils Absolute Auto 5.2 K/mm3 (1.3-6.7); Neutrophils Percent Auto 52.8 % (45.5-73.1); Platelet Count Result 261 k/mm3 (150-375); Red Blood Count 5.42 M/mm3 (4.2-5.4); Red Cell Distribution Width 13.3 % (11.5-14.5); White Blood Count 9.8 K/mm3 (4.5-10.0)
[2021-06-14 13:20] LABS: Alanine Aminotransferase 19 U/L (4-35); Albumin Level 4.8 g/dL (3.5-5.1); Alkaline Phosphatase 82 U/L (38-126); Anion Gap 10 mmol/L (8-16); Aspartate Amino Transferase 24 U/L (14-36); Bilirubin,Total 0.4 mg/dL (0.2-1.3); Blood Urea Nitrogen 12 mg/dL (7-17); Calcium 9.5 mg/dL (8.4-10.2); Carbon Dioxide 25 mmol/L (22-30); Chloride 101 mmol/L (98-107); Estimated CRCL calculation 131 ml/min; Estimated Glomerular Filt Rate > 60; Glucose 170 mg/dL (65-110); Potassium 3.9 mmol/L (3.4-5.0); Sodium 136 mmol/L (137-145)
[2021-06-14] MEDS: MORPHINE SULFATE (*CRX) 4 MG/ML INJ IV PUSH (15:00)
[2021-06-14 15:45] VITALS: BP 139/71; PULSE 98; RESP 16; O2SAT 99
== END 2021-06-14 15:45 | disposition home or self-care (01) ==
PROVIDERS: Emergency Medicine; Emergency Provider Emergency Medicine; PCP Family Medicine
DX: R10.9 Unspecified abdominal pain (principal); E11.9 Type 2 diabetes mellitus without complications; E78.5 Hyperlipidemia, unspecified; I10 Essential (primary) hypertension; Z86.711 Personal history of pulmonary embolism; Z86.718 Personal history of other venous thrombosis and embolism; Z79.84 Long term (current) use of oral hypoglycemic drugs; Z79.4 Long term (current) use of insulin; Z96.653 Presence of artificial knee joint, bilateral; Z87.891 Personal history of nicotine dependence
CPT/HCPCS: 36415; 74177; 80053; 81001; 85025; 85380; 96361; 96374; 96375; 99284; J1885; J2270; J2405; J7030; Q9967

== ENCOUNTER 2021-11-19 17:02 | Emergency (ER) | payer OTHER, SELFPAY ==
--- NOTE | ~2021-11-19 | XR_ITS ---
EXAM: XR foot LT min 3V HISTORY: dropped box onto left 5th mtp joint area COMPARISON: 11/29/2013. FINDINGS: Decreased mineralization. No fracture or dislocation. No lytic or blastic lesion. Mild deg enerative change at the first MTP. Plantar and Achilles enthesopathy. No erosion or periosteal change . Soft tissues within normal limits. IMPRESSION: No acute osseous finding in the left foot. Reviewed, dictated and finalized at location K.
[2021-11-19 17:19] VITALS: BP 148/76; PULSE 113; RESP 16; TEMP 37.7; O2SAT 98
--- NOTE | 2021-11-19 17:32 | ED.LOWEXIN ---
HPI - Extremity Injury (Lower) General Chief Complaint: Extremity Injury, Lower Stated Complaint: left 5th digit toe Time Seen by Provider: 11/19/21 17:20 Source: patient Mode of arrival: ambulatory Limitations: no limitations History of Present Illness HPI Narrative: Ms. Segovia is a 51-year-old female patient presenting to the clinic today with complaints of left toe pain after dropping a box of canned vegetables on her toe this afternoon. She is having a lot of bruising and pain with movement to the left fifth toe. She thinks it may be broken. Related Data Home Medications Medication Instructions Recorded Confirmed ertugliflozin [Steglatro] mg 06/14/21 fluoxetine mg 06/14/21 gabapentin 06/14/21 insulin lispro [Admelog U-100 06/14/21 Insulin lispro] lisinopril 06/14/21 metformin mg 06/14/21 pioglitazone mg 06/14/21 simvastatin mg 06/14/21 sitagliptin [Januvia] mg 06/14/21 Allergies Allergy/AdvReac Type Severity Reaction Status Date / Time clindamycin Allergy Unknown Hives / Verified 11/19/21 18:05 Red Face sulfamethoxazole Allergy Unknown Vomiting Verified 11/19/21 18:05 trimethoprim Allergy Unknown Vomiting Verified 11/19/21 18:05 celecoxib AdvReac Mild Unknown Verified 11/19/21 18:05 propoxyphene AdvReac Unknown Nausea and Verified 11/19/21 18:05 Vomiting hydrocodone [From Lortab] AdvReac Nausea and Verified 11/19/21 18:05 Vomiting Review of Systems Review of Systems: Pertinent positives per HPI. Patient denies any fever, chills, rash, headache, visual changes, dizziness, cough, runny nose, sore throat, shortness of breath, chest pain, palpitations, nausea, vomiting, diarrhea, constipation, abdominal pain, or any urinary issues. [facility] Past Medical History Medical History Diabetes mellitus History of DVT (deep vein thrombosis) History of pulmonary embolism Hyperlipidemia Hypertension Surgical History Surgical History History of bilateral knee replacement History of cholecystectomy History of orthopedic surgery History of tonsillectomy Family History Family History Mother No problems noted. Social History Social History Smoking status: Current every day smoker Second hand tobacco smoke exposure: No Smoking end date: 07/20/13 Alcohol intake: current Substance use: never Gender identity (if verbalized by the patient): Female Sexual Orientation (if Verbalized by the Patient): Straight or Heterosexual Comments At the time of my signature, I reviewed and agree with the nursing past medical, surgical, social, and family history. There is no relevant family history pertinent to the patient complaint. Exam Narrative: General: Well-developed, well nourished, in no apparent distress Head: Normocephalic, atraumatic. Cardio: Regular rate and rhythm, s1 and s2 normal, no murmur appreciated. Resp: Clear to auscultation bilaterally, no rhonchi, rales, wheezing or rubs. Musculoskeletal: No deformity, tender to palpation over the left fifth toe, pain with flexion and extension against resistance, bruising noted around the base of the left fifth toe as well as to the lateral and medial toe, peripheral pulse strong, no edema, no cyanosis, normal gait and station Course Course Emergency Course: Portions of this record may have been created with voice recognition software. Level of Care: Express Care Visit Vital Signs Vital signs: Vital Signs Temperature 37.7 C H 11/19/21 17:19 Pulse Rate 113 H 11/19/21 17:19 Respiratory Rate 16 11/19/21 17:19 Blood Pressure 148/76 H 11/19/21 17:19 Pulse Oximetry 98 11/19/21 17:19 Temperature 37.7 C H 11/19/21 17:19 Pulse Rate 113 H 11/19/21 17:19 Respirator
== END 2021-11-19 17:40 | disposition home or self-care (01) ==
PROVIDERS: Emergency Provider Nurse Practitioner Family; PCP Family Medicine
DX: S90.935A Unspecified superficial injury of left lesser toe(s), initial encounter (principal); E11.9 Type 2 diabetes mellitus without complications; I10 Essential (primary) hypertension; E78.5 Hyperlipidemia, unspecified; F17.200 Nicotine dependence, unspecified, uncomplicated; Z86.711 Personal history of pulmonary embolism; Z79.4 Long term (current) use of insulin; W20.8XXA Other cause of strike by thrown, projected or falling object, initial encounter
CPT/HCPCS: 73630; 99213; G0463

== ENCOUNTER 2022-03-21 14:49 | Emergency (ER) | payer OTHER, SELFPAY ==
--- NOTE | ~2022-03-21 | XR_ITS ---
EXAMINATION: XR knee RT 3V DATE: 03/21/2022 18:36 INDICATION: Lateral right knee pain and swelling TECHNIQUE: Weight bearing AP, lateral and oblique views of the right knee were obtained. COMPARISON: None. FINDINGS: Right total knee arthroplasty with patellar resurfacing which appears well seated in near-a natomic alignment. No periprosthetic lucency to suggest loosening or infection. No fracture. Possible very small right knee joint effusion. IMPRESSION: 1. Right total knee arthroplasty with no acute osseous abnormality. 2. Possible very small right knee joint effusion. Reviewed, dictated and finalized at location A.
[2022-03-21 15:09] VITALS: BP 134/80; PULSE 112; RESP 12; TEMP 36.6; O2SAT 100
[2022-03-21 17:10] LABS: Basophils Percent Auto 0.2 % (0.2-1.2); Eosinophils Absolute Auto 0.2 K/mm3 (0-0.3); Eosinophils Percent Auto 2.1 % (0-4.4); Hematocrit 45.1 % (37.0-47.0); Hemoglobin 14.3 g/dL (12.0-15.0); Immature Granulocyte Absolute 0.04 K/mm3 (0.00-0.031); Immature Granulocyte Percent A 0.4 % (0-0.5); Lymphocytes Absolute Auto 3.38 K/mm3 (0.9-3.2); Lymphocytes Percent Auto 34.2 % (18.3-44.2); Mean Corpuscular HGB Conc 31.7 g/dl (32-36); Mean Corpuscular Hemoglobin 27.5 pg (26-34); Mean Corpuscular Volume 86.7 fl (80-100); Mean Platelet Volume 9.6 fl (7.4-10.4); Monocytes Absolute Auto 0.8 K/mm3 (0.1-0.6); Monocytes Percent Auto 8.2 % (2.6-8.5); Neutrophils Absolute Auto 5.4 K/mm3 (1.3-6.7); Neutrophils Percent Auto 54.9 % (45.5-73.1); Platelet Count Result 307 k/mm3 (150-375); Red Cell Distribution Width 13.8 % (11.5-14.5); White Blood Count 9.9 K/mm3 (4.5-10.0)
--- NOTE | 2022-03-21 17:18 | ED.EXTPRO ---
HPI - Extremity Problem General Chief complaint: Extremity Problem,Nontraumatic <Dee Dee Salas PA-C - Last Filed: 03/21/22 19:03> Stated complaint: leg cramps <Dee Dee Salas PA-C - Last Filed: 03/21/22 19:03> Time Seen by Provider: 03/21/22 16:29 <MARIO Vila Last Filed: 03/21/22 19:03> History of Present Illness HPI Narrative: Patient is a 52-year-old female here for evaluation of bilateral lower extremity cramping over the past several days. She states that the pain begins in her bilateral hips and moves down into her knees. It is most severe at nighttime. She denies any significant relief from ibuprofen or position changes. She denies claudication type symptoms or rest pain. Also notes acute on chronic right knee swelling; states that she has chronic knee effusion which she follows with Dr. Wilde for and frequently gets fluid taken off. No chest pain, shortness of breath, syncope. <MARIO Vila Last Filed: 03/21/22 19:03> Related Data Home medications: Home Medications Medication Instructions Recorded Confirmed ertugliflozin 15 mg tablet mg 06/14/21 (Steglatro) fluoxetine 20 mg capsule mg 06/14/21 gabapentin 300 mg capsule 06/14/21 insulin lispro 100 unit/mL 06/14/21 subcutaneous solution (Admelog U-100 Insulin lispro) lisinopril 10 mg tablet 06/14/21 metformin 1,000 mg tablet mg 06/14/21 pioglitazone 15 mg tablet mg 06/14/21 simvastatin 20 mg tablet mg 06/14/21 sitagliptin 50 mg tablet (Januvia) mg 06/14/21 <MARIO Vila Last Filed: 03/21/22 19:03> Allergies/Adverse reactions: Allergies Allergy/AdvReac Type Severity Reaction Status Date / Time clindamycin Allergy Unknown Hives / Verified 03/21/22 15:17 Red Face sulfamethoxazole Allergy Unknown Vomiting Verified 03/21/22 15:17 trimethoprim Allergy Unknown Vomiting Verified 03/21/22 15:17 celecoxib AdvReac Mild Unknown Verified 03/21/22 15:17 propoxyphene AdvReac Unknown Nausea and Verified 03/21/22 15:17 Vomiting hydrocodone [From Lortab] AdvReac Nausea and Verified 03/21/22 15:17 Vomiting <Dee Dee Salas PA-C - Last Filed: 03/21/22 19:03> Review of Systems Review of Systems: Gen: Denies fevers or chills Eyes: Denies eye pain or visual change ENT: Denies congestion Respiratory: Denies shortness of breath or cough CV: Denies chest pain or palpitations GI: Denies abdominal pain nausea, emesis or diarrhea : denies burning, urgency, frequency or hematuria Musculoskeletal: Reports bilateral lower extremity cramping. Neuro: Denies numbness, tingling, weakness or focal weakness Skin: Denies rash Except as documented, all other systems reviewed and negative <Dee Dee Salas PA-C - Last Filed: 03/21/22 19:03> [facility] Past Medical History Medical History: Medical History Diabetes mellitus History of DVT (deep vein thrombosis) History of pulmonary embolism Hyperlipidemia Hypertension <Dee Dee Salas PA-C - Last Filed: 03/21/22 19:03> Surgical History Surgical History: Surgical History History of bilateral knee replacement History of cholecystectomy History of orthopedic surgery History of tonsillectomy <Dee Dee Salas PA-C - Last Filed: 03/21/22 19:03> Family History Family History: Family History Mother No problems noted. <Dee Dee Salas PA-C - Last Filed: 03/21/22 19:03> Social History Social History: Social History Smoking status: Current every day smoker Second hand tobacco smoke exposure: No Smoking end date: 07/20/13 Alcohol intake: current Substance use: never Gender identity (if yana
[2022-03-21 17:25] LABS: Alanine Aminotransferase 17 U/L (6-35); Albumin Level 4.4 g/dL (3.5-5.1); Alkaline Phosphatase 57 U/L (38-126); Anion Gap 10 mmol/L (8-16); Aspartate Amino Transferase 25 U/L (14-36); Bilirubin,Total 0.5 mg/dL (0.2-1.3); Blood Urea Nitrogen 16 mg/dL (7-17); Calcium 9.3 mg/dL (8.4-10.2); Carbon Dioxide 28 mmol/L (22-30); Chloride 102 mmol/L (98-107); Estimated CRCL calculation 130 ml/min; Estimated Glomerular Filt Rate > 60; Glucose 98 mg/dL (65-110); Potassium 3.8 mmol/L (3.4-5.0); Sodium 140 mmol/L (137-145)
[2022-03-21] MEDS: KETOROLAC 30 MG/ML VIAL (*BKC) IM (17:43)
[2022-03-21 18:03] LABS: Creatine Kinase 53 U/L (30-135); Magnesium 1.9 mg/dL (1.6-2.3); Phosphorus 4.7 mg/dL (2.5-4.5)
[2022-03-21] MEDS: ACETAMINOPHEN 325 MG TABLET 650 MG PO (18:38)
[2022-03-21 19:00] VITALS: BP 147/93; PULSE 93; RESP 18; O2SAT 98
[2022-03-21 19:02] VITALS: TEMP 36.6
== END 2022-03-21 19:02 | disposition home or self-care (01) ==
PROVIDERS: Physician Assistant; Emergency Provider Emergency Medicine; PCP Family Medicine
DX: R25.2 Cramp and spasm (principal); E11.9 Type 2 diabetes mellitus without complications; Z86.718 Personal history of other venous thrombosis and embolism; Z86.711 Personal history of pulmonary embolism; E78.5 Hyperlipidemia, unspecified; I10 Essential (primary) hypertension; Z96.653 Presence of artificial knee joint, bilateral; Z87.891 Personal history of nicotine dependence
CPT/HCPCS: 36415; 73562; 80053; 82550; 83735; 84100; 85025; 96372; 99283; A9270; J1885

== ENCOUNTER 2022-04-20 11:58 | Emergency (ER) | payer OTHER, SELFPAY ==
[2022-04-20 12:08] VITALS: BP 156/89; PULSE 115; RESP 20; TEMP 37; O2SAT 100
[2022-04-20 12:36] LABS: Basophils Percent Auto 0.2 % (0.2-1.2); Eosinophils Absolute Auto 0.1 K/mm3 (0-0.3); Eosinophils Percent Auto 1.2 % (0-4.4); Hematocrit 43.2 % (37.0-47.0); Immature Granulocyte Absolute 0.04 K/mm3 (0.00-0.031); Immature Granulocyte Percent A 0.3 % (0-0.5); Lymphocytes Absolute Auto 2.43 K/mm3 (0.9-3.2); Lymphocytes Percent Auto 20.7 % (18.3-44.2); Mean Corpuscular HGB Conc 32.4 g/dl (32-36); Mean Corpuscular Hemoglobin 27.9 pg (26-34); Mean Corpuscular Volume 86.2 fl (80-100); Mean Platelet Volume 9.9 fl (7.4-10.4); Monocytes Absolute Auto 0.9 K/mm3 (0.1-0.6); Monocytes Percent Auto 7.9 % (2.6-8.5); Neutrophils Absolute Auto 8.2 K/mm3 (1.3-6.7); Neutrophils Percent Auto 69.7 % (45.5-73.1); Platelet Count Result 248 k/mm3 (150-375); Red Blood Count 5.01 M/mm3 (4.2-5.4); Red Cell Distribution Width 13.8 % (11.5-14.5); White Blood Count 11.7 K/mm3 (4.5-10.0)
[2022-04-20 12:58] LABS: Anion Gap 11 mmol/L (8-16); Blood Urea Nitrogen 7 mg/dL (7-17); Calcium 8.8 mg/dL (8.4-10.2); Carbon Dioxide 26 mmol/L (22-30); Chloride 98 mmol/L (98-107); Estimated CRCL calculation 200 ml/min; Estimated Glomerular Filt Rate > 60; Glucose 305 mg/dL (65-110); Sodium 135 mmol/L (137-145)
--- NOTE | 2022-04-20 13:43 | ED.SKABFB ---
HPI - Skin/Abscess/Foreign Bdy General Chief complaint: Skin/Abscess/Foreign Body Stated complaint: abcess Time Seen by Provider: 04/20/22 12:04 History of Present Illness HPI narrative: Patient is a 52-year-old female who presents ER with abscess to her lower abdomen. Over the last week.. She has been trying to drain it and its not working. Enlarging and becoming more more tender. No fevers or chills or sweats. Blood sugars elevated last 2 days despite using an insulin pump. She has not bolused herself anything additional. Related Data Home Medications Medication Instructions Recorded Confirmed ertugliflozin 15 mg tablet mg 06/14/21 (Steglatro) fluoxetine 20 mg capsule mg 06/14/21 gabapentin 300 mg capsule 06/14/21 insulin lispro 100 unit/mL 06/14/21 subcutaneous solution (Admelog U-100 Insulin lispro) lisinopril 10 mg tablet 06/14/21 metformin 1,000 mg tablet mg 06/14/21 pioglitazone 15 mg tablet mg 06/14/21 simvastatin 20 mg tablet mg 06/14/21 sitagliptin 50 mg tablet (Januvia) mg 06/14/21 Allergies Allergy/AdvReac Type Severity Reaction Status Date / Time clindamycin Allergy Unknown Hives / Verified 03/21/22 15:17 Red Face sulfamethoxazole Allergy Unknown Vomiting Verified 03/21/22 15:17 trimethoprim Allergy Unknown Vomiting Verified 03/21/22 15:17 celecoxib AdvReac Mild Unknown Verified 03/21/22 15:17 propoxyphene AdvReac Unknown Nausea and Verified 03/21/22 15:17 Vomiting hydrocodone [From Lortab] AdvReac Nausea and Verified 03/21/22 15:17 Vomiting Review of Systems Review of Systems: All systems reviewed & are unremarkable except as noted in HPI and below Constitutional: Constitutional: Denies chills, Denies fatigue and Denies fever(s) Cardiovascular: Cardiovascular: Denies chest pain and Denies radiating jaw, neck or arm pain Respiratory: Respiratory: Denies cough and Denies dyspnea Gastrointestinal: Gastrointestinal: Denies abdominal pain, Denies nausea and Denies vomiting Integumentary/Breasts: Skin/Breast: Reports erythema, Denies rash and Denies skin ulcer PMFSH Past Medical History Medical History Diabetes mellitus History of DVT (deep vein thrombosis) History of pulmonary embolism Hyperlipidemia Hypertension Surgical History Surgical History History of bilateral knee replacement History of cholecystectomy History of orthopedic surgery History of tonsillectomy Family History Family History Mother No problems noted. Social History Social History Smoking status: Current every day smoker Second hand tobacco smoke exposure: No Smoking end date: 07/20/13 Alcohol intake: current Substance use: never Gender identity (if verbalized by the patient): Female Sexual Orientation (if Verbalized by the Patient): Straight or Heterosexual Exam Narrative: GENERAL: Well-appearing, well-nourished, and in no acute distress. HEAD: Normocephalic, atraumatic. ABDOMEN: Soft, nontender, normal active bowel sounds. EXTREMITIES: Normal range of motion. No edema. SKIN: Warm, dry, no rash. Abscess left lower abdomen. There is a 1 similar by 1.5 cm with central scab. Surrounding induration and cellulitis noted. Bruising also noted in the area due to the direct trauma. NEURO: Alert and oriented x3. PSYCH: Normal mood and affect. Course Course Emergency Course: Wound incise/drain/packing. Discharge home on doxycycline. Vital Signs Vital signs: Vital Signs Temperature 98.6 F 04/20/22 12:08 Pulse Rate 115 H 04/20/22 12:08 Respiratory Rate 20 04/20/22 12:08 Blood Pressure 156/89 H 04/20/22 12:08 Pulse Oximetry 100 04/20/22 12:08 Oxygen Delivery Room Air 04/20/22 12:08 Tempera
[2022-04-20 13:59] VITALS: BP 127/78; PULSE 104; RESP 13; O2SAT 100
== END 2022-04-20 14:00 | disposition home or self-care (01) ==
PROVIDERS: Emergency Provider Emergency Medicine; PCP Family Medicine
DX: L02.211 Cutaneous abscess of abdominal wall (principal); I10 Essential (primary) hypertension; E11.9 Type 2 diabetes mellitus without complications; E78.5 Hyperlipidemia, unspecified; Z86.718 Personal history of other venous thrombosis and embolism; Z86.711 Personal history of pulmonary embolism; Z87.891 Personal history of nicotine dependence; Z79.4 Long term (current) use of insulin; Z96.41 Presence of insulin pump (external) (internal); Z79.84 Long term (current) use of oral hypoglycemic drugs
CPT/HCPCS: 10060; 10061; 36415; 80048; 85025; 99283

== ENCOUNTER 2022-12-12 07:10 | Inpatient (IN) | payer OTHER, SELFPAY ==
[2022-12-12] VITALS (24 sets, daily range): BP systolic 97–156; BP diastolic 58–106; PULSE 85–172; RESP 11–23; TEMP 36.3–36.6; O2SAT 95–99; BMI 35.7
--- NOTE | 2022-12-12 | ECHO_ITS ---
Patient Info Name: Whit Segovia Age: 52 years : 1970 Gender: Female Ht: 65 in Wt: 219 lbs BSA: 2.18 m2 HR: 125 bpm BP: 113 / 80 mmHg Heart Rhythm: Atrial Fibrillation Technical Quality: Fair Exam Date: 12/12/2022 1:05 PM Exam Location: [facility] Pulmonary Exam Room: [facility] Patient Status: Outpatient Admit Date: 12/12/2022 Staff Ordering Physician: Cash Lind DO Commissary Officer: Radha Conn RDCS Attending Provider: Kemal Singh MD Referring Physician: Diogo WHITT; Exam Type: CA echo dop color flow w con Study Info Indications - ATRIAL FIB Complete two-dimensional, color flow and Doppler transthoracic echocardiogram is performed with contrast to opacify the left ventricle and to improve the deliniation of the left ventricle endocardial borders. Contrast/Agitated Saline Contrast/Ag. Saline: Definity Amount: 2.00 ml Administered By: Radha Conn [facility] Existing IV Access: Yes IV Access Condition: patent with no signs of infiltration Summary 1. Left ventricular chamber dimension is normal. 2. Definity contrast administered improved wall motion interpretation. 3. Left ventricular systolic function is normal, estimated at 65-70%. 4. There is mild concentric increased left ventricular wall thickness. 5. The left ventricular diastolic function is normal. 6. E/e' 7 is not elevated. 7. Atrial fibrillation. 8. Left atrial chamber dimension is mildly enlarged. 9. There is mild aortic valve sclerosis. 10. No pulmonary hypertension, estimated pulmonary arterial systolic pressure is 36 mmHg. Left Ventricle E/e' 7 is not elevated. Atrial fibrillation. Definity contrast administered improved wall motion interpretation. Left ventricular chamber dimension is normal. Left ventricular systolic function is normal, estimated at 65-70%. There is mild concentric increased left ventricular wall thickness. The left ventricular diastolic function is normal. Right Ventricle Right ventricular chamber dimension is normal. Right ventricular systolic function is normal. Left Atria Left atrial chamber dimension is mildly enlarged. Right Atria Right atrial chamber dimension is normal. Aortic Valve The aortic valve is trileaflet. There is mild aortic valve sclerosis. There is no aortic valve stenosis. There is no aortic valve regurgitation. Pulmonic Valve There is no pulmonic regurgitation. Mitral Valve There is no mitral valve stenosis. There is no mitral valve regurgitation. Tricuspid Valve There is no tricuspid valve regurgitation. No pulmonary hypertension, estimated pulmonary arterial systolic pressure is 36 mmHg. Pericardium/Pleural There is no pericardial effusion. Inferior Vena Cava Normal inferior vena cava with >50% collapse upon inspiration consistent with normal right atrial pressure, 5 mmHg. Aorta The aortic root size at the sinus of Valsalva is normal. Left Ventricular Outflow Tract Name Value Normal LVOT 2D LVOT Diameter 1.98 cm LVOT Doppler LVOT Peak Gradient 7 mmHg LVOT Mean Gradient 5 mmHg LVOT VTI 23.46 cm LVOT
--- NOTE | ~2022-12-12 | XR_ITS ---
XR chest 1V portable 12/12/2022 08:14 Indication: Chest palpitations Procedure: AP portable chest Comparison: Comparison to multiple prior studies sequentially, with oldest reviewed study dated 06/20. Findings: Heart size normal. No focal air space disease, pulmonary edema, pleural effusion or suspect ed pneumothorax. Impression: 1: No acute cardiopulmonary disease. Reviewed, dictated and finalized at location B. Impression: 1: No acute cardiopulmonary disease.
--- NOTE | 2022-12-12 07:32 | ECG_ITS ---
Measurements Intervals [place] Rate: 174 P: [place]: 0 QRS: 40 QRSD: 102 T: 211 QT: 256 QTc: 437 Interpretive Statements SUPRAVENTRICULAR TACHYCARDIA ST-T WAVE ABNORMALITY IN HIGH LATERAL LEADS- CONSIDER ISCHEMIA OR RATE RELATED ABNORMAL ECG COMPARED TO ECG 11/28/2019 18:03:38 SUPRAVENTRICULAR TACHYCARDIA NOW PRESENT Electronically Signed On 12-12-2022 7:57:38 CDT by Cash Lind D.O.
--- NOTE | 2022-12-12 07:41 | PC.NURSE ---
SELENA for [address] Smith at bedside during administration.
--- NOTE | 2022-12-12 07:46 | ECG_ITS ---
Measurements Intervals [place] Rate: 103 P: [place]: 0 QRS: 72 QRSD: 90 T: 95 QT: 322 QTc: 422 Interpretive Statements ATRIAL FIBRILLATION WITH RAPID VENTRICULAR RESPONSE NONSPECIFIC ST & T-WAVE ABNORMALITY- HIGH LATERAL LEADS BASELINE ARTIFACT- I, II, AVR ABNORMAL ECG COMPARED TO ECG 12/12/2022 07:36:35 ATRIAL FIBRILLATION NOW PRESENT Electronically Signed On 12-12-2022 8:54:28 CDT by Cash Lind D.O.
[2022-12-12 07:48] LABS: Basophils Percent Auto 0.3 % (0.2-1.2); Hematocrit 50.8 % (37.0-47.0); Hemoglobin 17.3 g/dL (12.0-15.0); Immature Granulocyte Absolute 0.02 K/mm3 (0.00-0.031); Immature Granulocyte Percent A 0.3 % (0-0.5); Lymphocytes Absolute Auto 1.03 K/mm3 (0.9-3.2); Lymphocytes Percent Auto 17.8 % (18.3-44.2); Mean Corpuscular HGB Conc 34.1 g/dl (32-36); Mean Corpuscular Hemoglobin 27.9 pg (26-34); Mean Corpuscular Volume 82.1 fl (80-100); Monocytes Absolute Auto 0.5 K/mm3 (0.1-0.6); Monocytes Percent Auto 8.1 % (2.6-8.5); Neutrophils Absolute Auto 4.3 K/mm3 (1.3-6.7); Neutrophils Percent Auto 73.5 % (45.5-73.1); Platelet Count Result 204 k/mm3 (150-375); Red Blood Count 6.19 M/mm3 (4.2-5.4); Red Cell Distribution Width 13.2 % (11.5-14.5); White Blood Count 5.8 K/mm3 (4.5-10.0)
[2022-12-12] MEDS: dilTIAZem HCl INJ 25 MG/5 ML VIAL 15 MG IV PUSH (07:48)
[2022-12-12] MEDS: SODIUM CHLORIDE 0.9% IV 1,000 ML 999 ML IV CONT ×2 (07:48→08:27)
[2022-12-12 07:58] LABS: Alanine Aminotransferase 24 U/L (6-35); Alkaline Phosphatase 87 U/L (38-126); Anion Gap 8 mmol/L (8-16); Aspartate Amino Transferase 32 U/L (14-36); Bilirubin,Total 0.8 mg/dL (0.2-1.3); Blood Urea Nitrogen 11 mg/dL (7-17); Calcium 8.6 mg/dL (8.4-10.2); Carbon Dioxide 30 mmol/L (22-30); Chloride 94 mmol/L (98-107); Estimated CRCL calculation 127 ml/min; Estimated Glomerular Filt Rate > 60; Glucose 429 mg/dL (65-110); Potassium 3.5 mmol/L (3.4-5.0); Sodium 132 mmol/L (137-145)
--- NOTE | 2022-12-12 08:00 | PC.NURSE ---
Diltiazem 10mg IVP given per SHANDRA Smith
[2022-12-12 08:03] LABS: INR 0.9; Partial Thromboplastin Time 24.6 SECONDS (22.3-36.8); Prothrombin Time 12.6 Seconds (11.1-14.7)
[2022-12-12 08:10] LABS: Troponin I 0.016 ng/mL (0.000-0.034)
[2022-12-12 08:34] LABS: Alveolar/Arterial O2 Gradient 34.7 mmHg; Base Excess ABG 0.7 mEq/l (+/-2.0); Carboxyhemoglobin 1.9 % THb (0-2.0); Fractional Inspired Oxygen 21 %; HCO3 ABG 24.7 mEq/l (22.0-26.0); Methemoglobin ABG 0.3 %THb (0-1.5); Oxygen Content ABG 21.2 %vol (16.0-22.0); Oxygen Saturation ABG 94.5 % (95.0-100.0); Oxyhemoglobin 92.2 % THb (90.0-100.0); PO2 ABG 69.5 mmHg (80.0-100.0); PO2 FiO2 Ratio Arterial Blood 3.31 %; Reduced Hemoglobin 5.6 %THb (0-5.0); Total Hemoglobin 16.4 g/dL (12.0-18.0); pH ABG 7.431 (7.350-7.450)
[2022-12-12 08:36] LABS: Device ROOM AIR; Site Drawn LEFT BRACHIAL
[2022-12-12] MEDS: METOPROLOL TARTRATE INJ 5 MG/5 ML VIAL IV PUSH (08:36)
[2022-12-12 09:46] LABS: Glucose Point of Care 365 mg/dl (65-105)
--- NOTE | 2022-12-12 10:05 | ED.SYNCOPE ---
HPI - Syncope General Chief Complaint: Dizziness Stated Complaint: fatigue, sob, bilateral ear pain, L hand numbness Time Seen by Provider: 12/12/22 07:22 History of Present Illness HPI narrative: Patient is a 52-year-old female who presents ER with reports of fatigue and weakness. Ongoing over the last 2 days. Associate with shortness of breath and dizziness with any sort of activity. Denies fevers or chills or sweats. No chest pain or racing of the heart. When placed on monitor after getting to the room patient found to be in SVT. Patient denies history of arrhythmia. Patient does report she started Keflex couple days ago for an axillary abscess related to her cystic hidradenitis. Related Data Home Medications Medication Instructions Recorded Confirmed ertugliflozin 15 mg tablet 15 mg PO DAILY 06/14/21 12/12/22 (Steglatro) fluoxetine 20 mg capsule 20 mg PO DAILY 06/14/21 12/12/22 gabapentin 300 mg capsule 300 mg PO Q12H 06/14/21 12/12/22 insulin lispro 100 unit/mL See Rx Instructions .Route .COMPLEX 06/14/21 12/12/22 subcutaneous solution (Admelog U-100 Insulin lispro) lisinopril 10 mg tablet 10 mg PO DAILY 06/14/21 12/12/22 metformin 1,000 mg tablet 1,000 mg PO DAILY 06/14/21 12/12/22 pioglitazone 15 mg tablet 15 mg PO DAILY 06/14/21 12/12/22 simvastatin 20 mg tablet 20 mg PO HS 06/14/21 12/12/22 sitagliptin phosphate 50 mg tablet 50 mg PO DAILY 06/14/21 12/12/22 (Januvia) Allergies Allergy/AdvReac Type Severity Reaction Status Date / Time clindamycin Allergy Unknown Hives / Verified 12/12/22 07:29 Red Face sulfamethoxazole Allergy Unknown Vomiting Verified 12/12/22 07:29 trimethoprim Allergy Unknown Vomiting Verified 12/12/22 07:29 celecoxib AdvReac Mild Unknown Verified 12/12/22 07:29 propoxyphene AdvReac Unknown Nausea and Verified 12/12/22 07:29 Vomiting hydrocodone [From Lortab] AdvReac Nausea and Verified 12/12/22 07:29 Vomiting Review of Systems Review of Systems: All systems reviewed & are unremarkable except as noted in HPI and below Constitutional: Constitutional: Denies chills, Reports fatigue and Denies fever(s) ENT: Denies nasal congestion and Denies sore throat Cardiovascular: Cardiovascular: Denies chest pain, Denies rapid heart rate and Denies radiating jaw, neck or arm pain Respiratory: Respiratory: Denies cough, Reports dyspnea and Denies wheezing Gastrointestinal: Gastrointestinal: Denies abdominal pain, Denies nausea and Denies vomiting Musculoskeletal: Musculoskeletal: Denies back pain and Denies myalgias Integumentary/Breasts: Skin/Breast: Reports erythema and Denies rash Comments: Axillary abscess left side Neurologic: Reports dizziness, Denies syncope, Denies headache(s), Denies focal weakness and Denies numbness PMFSH Past Medical History Medical History (Updated 12/12/22 @ 17:56 by Genet Rose NP) Depression with anxiety Diabetes mellitus History of DVT (deep vein thrombosis) History of pulmonary embolism Hyperlipidemia Hypertension Surgical History Surgical History History of bilateral knee replacement History of cholecystectomy History of orthopedic surgery History of tonsillectomy Family History Family History (Updated 12/12/22 @ 17:46 by Genet Rose NP) Unknown Adopted Social History Social History (Updated 12/12/22 @ 17:48 by Genet Rose NP) Social History: The patient lives with her . The patient continues to smoke approximately 3-4 cigarettes a day. The patient does work at [employer]. Her is a durable power deputy prosecuting attorney for [employer]. Code status full code Smoking status: Current every day smoker Second hand tobacco smoke exposure: No Alcohol intake: current Substance use: never Lack of Transportation: No Lack of Food: Never True Current Housing: I Have Housing Concerned About Future Housing: No D
[2022-12-12] MEDS: ENOXAPARIN 100 MG/ML SYRINGE SUB-Q (10:07)
[2022-12-12] MEDS: dilTIAZem 100 MG/100 ML 100 MG/100 ML BAG IV CONT (10:09)
[2022-12-12 11:16] LABS: Troponin I 0.014 ng/mL (0.000-0.034)
--- NOTE | 2022-12-12 11:22 | PM.CNCAR ---
Assessment and Plan Assessment and plan (1) Atrial fibrillation and flutter: Code(s): I48.91 - Unspecified atrial fibrillation; I48.92 - Unspecified atrial flutter Status: Acute Assessment and Plan: Could be due to obesity, undiagnosed CHALINO. She was in SVT, then atrial flutter, then atrial fib in ER. Continue Diltiazem drip for rate control. [id number] 3. On Lovenox in ER. Will change to Eliquis 5 mg BID. Start Sotalol 80 mg PO every 12 hours and check EKG 1-2 post each dose checking QT interval. Obtain echo. (2) Hyperlipidemia: Code(s): E78.5 - Hyperlipidemia, unspecified Status: Acute Assessment and Plan: On Simvastatin. (3) Hypertension: Code(s): I10 - Essential (primary) hypertension Status: Acute Assessment and Plan: Stable. (4) Smoking: Code(s): F17.200 - Nicotine dependence, unspecified, uncomplicated Status: Acute Assessment and Plan: Counseled regarding smoking cessation. (5) Snoring: Code(s): R06.83 - Snoring Status: Acute Assessment and Plan: Apnea link tonight. History of Present Illness History of Present Illness Consult date/time: 12/12/22 11:22 Reason For Visit: Afib/Flutter,Axillary Abscess Narrative: 52 yr old woman presents to ER with weakness. She has a history of hypertension, dyslipidemia, DM, smoking. Reports she felt very weak since 2 days ago. She was told at her PCP her HR was in 150's at that time. She continued to feel tired so she came in to ER. Normally she can walk several blocks without any problems. She snores but no daytime sleepiness. Denies chest pain, sob, palpitations, orthopnea, PND, edema, dizziness. Review of Systems Review of Systems: All systems reviewed & are unremarkable except as noted in HPI and below Cardiovascular: Cardiovascular: Reports as per HPI, Denies chest pain and Denies irregular heart rhythm Respiratory: Respiratory: Reports as per HPI and Reports dyspnea on exertion Gastrointestinal: Gastrointestinal: Reports as per HPI and Denies abdominal pain Genitourinary: Genitourinary: Reports as per HPI and Denies dysuria Musculoskeletal: Musculoskeletal: Reports as per HPI Neurologic: Reports as per HPI, Denies dizziness and Denies syncope [facility] Past Medical History Medical History Diabetes mellitus History of DVT (deep vein thrombosis) History of pulmonary embolism Hyperlipidemia Hypertension Surgical History Surgical History History of bilateral knee replacement History of cholecystectomy History of orthopedic surgery History of tonsillectomy Family History Family History Mother No problems noted. Social History Social History Smoking status: Current every day smoker Second hand tobacco smoke exposure: No Smoking end date: 07/20/13 Alcohol intake: current Substance use: never Living arrangements: with family Gender identity (if verbalized by the patient): Female Sexual Orientation (if Verbalized by the Patient): Straight or Heterosexual Meds Home Medications and Allergies Home Medications Medication Instructions Recorded Confirmed Type inhalational spacing device #1 ea 11/09/20 Rx (Tee [facility] spacer) cyclobenzaprine 10 mg tablet 10 mg PO TID PRN muscle spasm #10 06/14/21 Rx tabs ertugliflozin 15 mg tablet mg 06/14/21 History (Steglatro) fluoxetine 20 mg capsule mg 06/14/21 History gabapentin 300 mg capsule 06/14/21 History ibuprofen 600 mg tablet (IBU) 600 mg PO Q6H PRN pain #20 tabs 06/14/21 Rx insulin lispro 100 unit/mL 06/14/21 History subcutaneous solution (Admelog U-100 Insulin lispro) lisinopril 10 mg tablet 06/14/21 Histo
--- NOTE | 2022-12-12 13:11 | PM.IMHP ---
H&P: HPI History of Present Illness Date/Time: 12/12/22 13:11 Chief Complaint: Dizziness Narrative: this is a 52-year-old female patient who is insulin-dependent diabetic who typically wears an insulin pump and is typically in the 200s with her blood sugar. When questioned about hypertension and hyperlipidemia the patient stated that she feels that her doctor put her on these medications as a protective measure for her kidneys due to her diabetes. She has no prior history of any coronary artery disease or any irregular rhythms. Today she complained of fatigue shortness of breath bilateral ear pain and left hand numbness. The patient when was found to be in atrial fibrillation and flutter and acute hyperglycemia. H&H is 17.3 and 50.8. Neutrophil percentage 73.5. Her sodium is 132. Blood sugars 365. According to her her blood sugars are typically in the 200s. Troponin is 0.016, 0.014, and 0.012. The patient was found to be in AFib with RVR. The patient was given IV fluids, Cardizem, Lopressor IV, subQ Lovenox and adenosine. cardiology has been consulted. The patient is being admitted to observation status on the date of service of 12/12/2022. Review of Systems Review of Systems: All systems reviewed & are unremarkable except as noted in HPI and below Constitutional: Constitutional: Reports as per HPI and Reports no additional constitutional complaints Eyes: Eyes: Reports as per HPI and Reports no additional eye complaints ENT: Reports system reviewed and no additional complaints, except as documented and Reports Normal hearing present Cardiovascular: Cardiovascular: Reports no additional cardiovascular complaints Respiratory: Respiratory: Reports no additional respiratory complaints and Reports no additional respiratory complaints Gastrointestinal: Gastrointestinal: Reports as per HPI and Reports no additional gastrointestinal complaints Musculoskeletal: Musculoskeletal: Reports no additional musculoskeletal complaints Integumentary/Breasts: Skin/Breast: Reports system reviewed and no additional complaints, except as docu and Reports as per HPI Neurologic: Reports system reviewed and no additional complaints, except as documented, Reports as per HPI and Reports Normal hearing present Psychiatric: Psychiatric: Reports no additional psychiatric complaints and Reports as per HPI Endocrine: Endocrine: Reports no additional endocrine complaints Hematologic/Lymphatic: Hematologic/Lymphatic: Reports no additional hematologic/lymphatic complaints Allergic/Immunologic: Allergic/Immunologic: Reports no additional allergic/immunologic complaints [facility] Past Medical History Medical History (Updated 12/12/22 @ 17:56 by Genet Rose NP) Depression with anxiety Diabetes mellitus History of DVT (deep vein thrombosis) History of pulmonary embolism Hyperlipidemia Hypertension Surgical History Surgical History History of bilateral knee replacement History of cholecystectomy History of orthopedic surgery History of tonsillectomy Family History Family History (Updated 12/12/22 @ 17:46 by Genet Rose NP) Unknown Adopted Social History Social History (Updated 12/12/22 @ 17:48 by Genet Rose NP) Social History: The patient lives with her . The patient continues to smoke approximately 3-4 cigarettes a day. The patient does work at [employer]. Her is a durable power insurance attorney for [employer]. Code status full code Smoking status: Current every day smoker Second hand tobacco smoke exposure: No Alcohol intake: current Substance use: never Lack of Transportation: No Lack of Food: Never True Current Housing: I Have Housing Concerned About Future Housing: No Difficulty Paying Gas/Electric Bills: No Difficulty Paying for Meds: No Currently Unemployed: No Education: High School Diploma/GED Diffi
[2022-12-12] MEDS: PERFLUTREN LIPID MICROSPHERES 1.5 ML VIAL DILUTED TO 10 ML TOTAL VOLUME IV PUSH (13:50)
[2022-12-12] MEDS: SOTALOL HCL 80 MG TABLET PO ×2 (13:56→23:11)
[2022-12-12] MEDS: SODIUM CHLORIDE 0.9% IV 1,000 ML 125 ML IV CONT ×2 (14:00→23:45)
[2022-12-12 14:38] LABS: Troponin I < 0.012 ng/mL (0.000-0.034)
--- NOTE | 2022-12-12 16:01 | ECG_ITS ---
Measurements Intervals [place] Rate: 84 P: 62 GA: 187 QRS: 71 QRSD: 86 T: 126 QT: 403 QTc: 478 Interpretive Statements SINUS RHYTHM ST-T WAVE ABNORMALITY IN HIGH LATERAL LEADS- CONSIDER ISCHEMIA ABNORMAL ECG COMPARED TO ECG 12/12/2022 08:52:[address] NOW PRESENT ST-T WAVE ABNORMALITY NOW PRESENT Electronically Signed On 12-12-2022 16:31:04 CDT by Cash Lind D.O.
--- NOTE | 2022-12-12 16:15 | ADMGEN ---
This patient, Whit Segovia, was admitted to IMU Room 212-01. Patient/family oriented to hospital policies and general routines including ID bracelet, bed and alarms, visiting hours, pain management, procedures, bathroom and other care routines, personal items, smoking policy, room service/diet, and visiting hours. Information on how to activate the Rapid Response Team has been discussed. Patient/Family are encouraged to report perceived risks to care and to ask questions if they do not understand what they are told or what they should do.
[2022-12-12 19:53] LABS: Glucose Point of Care 498 mg/dl (65-105)
[2022-12-12] MEDS: INSULIN ASPART (*BKC) 100 UNITS/ML 6 UNITS SUB-Q (20:19)
[2022-12-12] MEDS: APIXABAN 5 MG TABLET PO (20:28)
[2022-12-12] MEDS: SIMVASTATIN 20 MG TABLET PO (20:28)
[2022-12-12] MEDS: GABAPENTIN 300 MG CAPSULE PO (20:28)
[2022-12-12] MEDS: INSULIN GLARGINE (*BKC) 100 UNITS/ML 10 UNITS SUB-Q (20:31)
[2022-12-12 22:10] LABS: Glucose Point of Care 422 mg/dl (65-105)
[2022-12-13] VITALS (17 sets, daily range): BP systolic 106–139; BP diastolic 55–72; PULSE 74–97; RESP 16–20; TEMP 36.4–36.9; O2SAT 96–99
--- NOTE | 2022-12-13 01:10 | ECG_ITS ---
Measurements Intervals [place] Rate: 74 P: 63 [place]: 201 QRS: 68 QRSD: 93 T: 118 QT: 438 QTc: 489 Interpretive Statements SINUS RHYTHM NONSPECIFIC ST & T-WAVE ABNORMALITY- HIGH LATERAL LEADS BORDERLINE ECG COMPARED TO ECG 12/12/2022 16:19:35 NO SIGNIFICANT CHANGES Electronically Signed On 12-13-2022 8:15:36 CDT by Cash Lind D.O.
[2022-12-13 05:10] LABS: Basophils Percent Auto 0.4 % (0.2-1.2); Eosinophils Absolute Auto 0.1 K/mm3 (0-0.3); Eosinophils Percent Auto 1.3 % (0-4.4); Hematocrit 38.7 % (37.0-47.0); Immature Granulocyte Absolute 0.02 K/mm3 (0.00-0.031); Immature Granulocyte Percent A 0.4 % (0-0.5); Lymphocytes Absolute Auto 1.59 K/mm3 (0.9-3.2); Lymphocytes Percent Auto 30.1 % (18.3-44.2); Mean Corpuscular HGB Conc 33.6 g/dl (32-36); Mean Corpuscular Hemoglobin 28.2 pg (26-34); Mean Corpuscular Volume 83.9 fl (80-100); Mean Platelet Volume 10.5 fl (7.4-10.4); Monocytes Absolute Auto 0.5 K/mm3 (0.1-0.6); Monocytes Percent Auto 9.5 % (2.6-8.5); Neutrophils Absolute Auto 3.1 K/mm3 (1.3-6.7); Neutrophils Percent Auto 58.3 % (45.5-73.1); Platelet Count Result 167 k/mm3 (150-375); Red Blood Count 4.61 M/mm3 (4.2-5.4); Red Cell Distribution Width 13.5 % (11.5-14.5); White Blood Count 5.3 K/mm3 (4.5-10.0)
[2022-12-13 05:18] LABS: Alanine Aminotransferase 25 U/L (6-35); Albumin Level 3.3 g/dL (3.5-5.1); Alkaline Phosphatase 69 U/L (38-126); Anion Gap 4 mmol/L (8-16); Aspartate Amino Transferase 31 U/L (14-36); Bilirubin,Total 0.6 mg/dL (0.2-1.3); Blood Urea Nitrogen 12 mg/dL (7-17); Calcium 7.6 mg/dL (8.4-10.2); Carbon Dioxide 30 mmol/L (22-30); Chloride 98 mmol/L (98-107); Cholesterol 156 mg/dL (0-200); Estimated CRCL calculation 201 ml/min; Estimated Glomerular Filt Rate > 60; Glucose 321 mg/dL (65-110); HDL Direct 23 mg/dL; Potassium 3.5 mmol/L (3.4-5.0); Sodium 132 mmol/L (137-145); Triglycerides 520 mg/dL (<150)
[2022-12-13 05:19] LABS: Lactic Acid Reflex 0.9 mmol/L (0.7-2.0)
[2022-12-13 05:29] LABS: LDL Cholesterol Direct 67 mg/dL
[2022-12-13 05:47] LABS: Hemoglobin A1C 11.5 % (<5.7)
--- NOTE | 2022-12-13 05:57 | PC.NURSE ---
Order given by Dr. Lind to discontinue Cardizem drip, pt in sinus rhythm and sotolol loading.
[2022-12-13 07:50] LABS: Glucose Point of Care 350 mg/dl (65-105)
--- NOTE | 2022-12-13 08:03 | PM.PNCARD ---
Progress Note: A&P Assessment and Plan (1) Atrial fibrillation and flutter: Code(s): I48.91 - Unspecified atrial fibrillation; I48.92 - Unspecified atrial flutter Status: Acute Assessment and Plan: Could be due to obesity, undiagnosed CHALINO. She was in SVT, then atrial flutter, then atrial fib in ER. Initially on Diltiazem drip for rate control until cardioverted on Sotalol. [id number] 3. On Lovenox in ER, and this was changed to Eliquis 5 mg BID. Echo on 12/12/22 shows EF 65-70%, mild LVH, mild LAE. Started Sotalol 80 mg PO every 12 hours on 12/12/22 and check EKG 1-2 post each dose checking QT interval. Anticipate 1 more night stay for Sotalol loading. (2) Hyperlipidemia: Code(s): E78.5 - Hyperlipidemia, unspecified Status: Acute Assessment and Plan: On Simvastatin. Start Fish Oil 2 gm BID. (3) Hypertension: Code(s): I10 - Essential (primary) hypertension Status: Acute Assessment and Plan: Stable. Start Losartan 50 mg daily (instead of home Lisinopril). (4) Smoking: Code(s): F17.200 - Nicotine dependence, unspecified, uncomplicated Status: Acute Assessment and Plan: Counseled regarding smoking cessation. (5) Snoring: Code(s): R06.83 - Snoring Status: Acute Assessment and Plan: Will need outpatient sleep study. Subjective Date/time seen: 12/13/22 08:03 Interval history: Denies chest pain or sob. Exam Const: General: cooperative, healthy appearing, comfortable and obese Nutritional Appearance: obese Orientation/consciousness: oriented to person, oriented to place and oriented to time Resp: Auscultation: clear to auscultation bilaterally, no crackles, no rales, no rhonchi and no wheezes Cardio: Rate: regular rate Rhythm: regular rhythm Heart sounds: no murmurs Peripheral pulses: dorsalis pedis present Neuro: General: oriented to person, oriented to place and oriented to time Extrem: Right lower extremity: no edema Left lower extremity: no edema Objective Data Vital Signs Vital Signs: Vital Signs - 24 hr 12/12/22 08:36 12/12/22 10:09 12/12/22 08:10 Temperature Pulse Rate 166 H 122 H 148 H Respiratory Rate 21 H Blood Pressure 113/80 122/77 Pulse Oximetry 95 Oxygen Delivery 12/12/22 08:16 12/12/22 09:32 12/12/22 10:01 Temperature Pulse Rate 152 H 126 H 139 H Respiratory Rate 20 11 L 20 Blood Pressure 134/72 97/71 L 113/80 Pulse Oximetry 97 97 97 Oxygen Delivery 12/12/22 10:55 12/12/22 11:10 12/12/22 12:00 Temperature 97.3 F L Pulse Rate 114 H 138 H 131 H Respiratory Rate 23 H 22 H Blood Pressure 113/80 Pulse Oximetry 95 98 Oxygen Delivery 12/12/22 13:56 12/12/22 12:00 12/12/22 14:00 Temperature Pulse Rate 131 H 88 Respiratory Rate Blood Pressure Pulse Oximetry Oxygen Delivery Room Air 12/12/22 16:00 12/12/22 16:00 12/12/22 16:00 Temperature 98 F Pulse Rate 86 85 Respiratory Rate 18 Blood Pressure 120/58 L Pulse Oximetry 99 Oxygen Delivery Room Air 12/12/22 18:00 12/12/22 19:54 12/12/22 20:00 Temperature 97.6 F Pulse Rate 93 93 92 Respiratory Rate 20 Blood Pressure 105/63 Pulse Oximetry 98 Oxygen Delivery 12/12/22 20:00 12/12/22 23:11 12/12/22 23:15 Temperature 97.3 F L Pulse Rate 85 89 Respiratory Rate 20 Blood Pressure 125/69 Pulse Oximetry 95 Oxygen Delivery Room Air 12/12/22 22:00 12/12/22 22:17 12/13/22 00:00 Temperature Pulse Rate 96 Respiratory Rate Blood Pressure Pulse Oximetry 95 Oxygen Delivery Room Air Room Air 12/13/22 00:00 12/13/22 02:00 12/13/22 04:00 Temperature 97.6 F Pulse Rate 85 74 82 Respiratory Rate 20 Blood Pressure 131/72 Pulse Oximetry 97 Oxygen Delivery 12/13/22 04:00 12/13/22 06:00 12/13/22 04:00 Temperature Pulse Rate 80 80 Respiratory Rate Blood Pressure Pulse Oximetry Oxygen Delivery
[2022-12-13] MEDS: GABAPENTIN 300 MG CAPSULE PO ×2 (09:49→20:50)
[2022-12-13] MEDS: SOTALOL HCL 80 MG TABLET PO ×2 (09:49→20:50)
[2022-12-13] MEDS: APIXABAN 5 MG TABLET PO ×2 (09:49→20:50)
[2022-12-13] MEDS: OMEGA 3 POLYUNSAT FATTY ACIDS 1 GM CAP 2 GM PO ×2 (09:49→18:50)
[2022-12-13] MEDS: PIOGLITAZONE HCL 15 MG TAB PO (09:49)
[2022-12-13] MEDS: FLUoxetine HCL 20 MG CAPSULE PO (09:49)
[2022-12-13] MEDS: INSULIN ASPART (*BKC) 100 UNITS/ML SUB-Q ×3 (09:51→18:50)
[2022-12-13] MEDS: LOSARTAN POTASSIUM 50 MG TABLET PO (10:11)
[2022-12-13 12:02] LABS: Glucose Point of Care 310 mg/dl (65-105)
--- NOTE | 2022-12-13 12:41 | ECG_ITS ---
Measurements Intervals [place] Rate: 83 P: 35 PA: 160 QRS: 53 QRSD: 89 T: 81 QT: 379 QTc: 447 Interpretive Statements SINUS RHYTHM NONSPECIFIC ST & T-WAVE ABNORMALITY- HIGH LATERAL LEADS BORDERLINE ECG COMPARED TO ECG 12/13/2022 00:55:59 NO SIGNIFICANT CHANGES Electronically Signed On 12-13-2022 16:47:11 CDT by Cash Lind D.O.
--- NOTE | 2022-12-13 14:13 | WPDPN ---
Progress Note: A&P Assessment and Plan (1) Atrial fibrillation and flutter: Code(s): I48.91 - Unspecified atrial fibrillation; I48.92 - Unspecified atrial flutter Status: Acute Assessment and Plan: cardiology has been consulted The patient had been on a Cardizem drip and appears to be in sinus rhythm now. -The patient was started on sotalol 80 mg p.o. every 12 hours. The patient's Sumanth Vasc score is 3 so she was started on Lovenox in the ER. She will be continued with Eliquis 5 mg b.i.d.. - an echo was obtained. Which was read as the following. Left ventricular chamber dimension is normal. ? 2. Definity contrast administered improved wall motion interpretation. ? 3. Left ventricular systolic function is normal, estimated at 65-70%. ? 4. There is mild concentric increased left ventricular wall thickness. ? 5. The left ventricular diastolic function is normal. ? 6. E/e' 7 is not elevated. ? 7. Atrial fibrillation. ? 8. Left atrial chamber dimension is mildly enlarged. ? 9. There is mild aortic valve sclerosis. ? 10. No pulmonary hypertension, estimated pulmonary arterial systolic pressure is 36 mmHg. 12/13/2022 interval history: Rich 2-year-old female with history of type 1 diabetes on insulin pump presented with complaint of fatigue is found to have atrial fibrillation with RVR with started on diltiazem drip and patient was seen by commercial escrow assistant started the patient on sotalol and patient converted to sinus rhythm, patient's ?[id number] 3. Started the patient on Eliquis 5 mg b.i.d., currently patient states feeling better denies any chest pain shortness a breath or palpitation will continue to monitor. (2) Diabetes mellitus: Code(s): E11.9 - Type 2 diabetes mellitus without complications Status: Acute Assessment and Plan: Accu-Cheks AC and HS with sliding scale insulin. -hold metformin - steglatro is non formulary. Continue active continue Januvia hypoglycemic protocol check A1c if not performed in last 3 months. The patient has taken her insulin pump off. (3) Hyperlipidemia: Code(s): E78.5 - Hyperlipidemia, unspecified Status: Acute Assessment and Plan: Continue with simvastatin. Explained-the patient stated she felt like this was just a preventative measure and she really does not have high cholesterol. -we discussed results and I explained to her that she needed to get her results from her primary care doctor who did perform those test. We can repeat her lipid profile here to monitor her cholesterol levels. As well as her triglycerides. I explained if her blood sugars continue to be elevated that most likely her triglycerides will be elevated as well. (4) Hypertension: Code(s): I10 - Essential (primary) hypertension Status: Acute Assessment and Plan: Patient denies having any hypertension and stated that she is just on lisinopril for protective measures of her kidneys. However she had been on a Cardizem drip and her blood pressure is low. She was also started on a sotalol challenge therefore I am holding her lisinopril for today. (5) Depression with anxiety: Code(s): F41.8 - Other specified anxiety disorders Status: Acute Assessment and Plan: continue with fluoxetine. (6) Smoking: Code(s): F17.200 - Nicotine dependence, unspecified, uncomplicated Status: Acute Assessment and Plan: Smoking cessation has been discussed for approximately 5 minutes. Subjective Date/time seen: 12/13/22 14:13 Interval history: Dizziness HPI-Narrative: ?this is a 52-year-old female patient who is insulin-dependent diabetic who typically wears an insulin pump? and is typically in the 200s with her blood sugar.? When questioned about hypertension and hyperlipidemia the patient stated that she feels that her doctor put her on these medications as a protective measure for her kidneys due to her diabetes.? She has n
[2022-12-13 16:39] LABS: Glucose Point of Care 389 mg/dl (65-105)
[2022-12-13 19:39] LABS: Glucose Point of Care 489 mg/dl (65-105)
[2022-12-13] MEDS: SIMVASTATIN 20 MG TABLET PO (20:50)
[2022-12-13] MEDS: INSULIN GLARGINE (*BKC) 100 UNITS/ML 16 UNITS SUB-Q (20:51)
[2022-12-13] MEDS: INSULIN ASPART (*BKC) 100 UNITS/ML 8 UNITS SUB-Q (20:52)
--- NOTE | 2022-12-13 21:46 | ECG_ITS ---
Measurements Intervals [place] Rate: 83 P: 67 [place]: 192 QRS: 76 QRSD: 91 T: 70 QT: 393 QTc: 464 Interpretive Statements SINUS RHYTHM VENTRICULAR PREMATURE COMPLEXES BORDERLINE ST-T WAVE ABNORMALITY- HIGH LATERAL LEADS BORDERLINE ECG COMPARED TO ECG 12/13/2022 13:15:45 NO SIGNIFICANT CHANGES Electronically Signed On 12-17-2022 12:06:28 CDT by Cash Lind D.O.
[2022-12-14] VITALS (8 sets, daily range): BP systolic 116–138; BP diastolic 54–67; PULSE 84–97; RESP 18–20; TEMP 36.1–36.9; O2SAT 96–98
[2022-12-14 05:09] LABS: Hematocrit 37.7 % (37.0-47.0); Hemoglobin 12.5 g/dL (12.0-15.0); Mean Corpuscular HGB Conc 33.2 g/dl (32-36); Mean Corpuscular Volume 84.3 fl (80-100); Mean Platelet Volume 11.1 fl (7.4-10.4); Platelet Count Result 164 k/mm3 (150-375); Red Blood Count 4.47 M/mm3 (4.2-5.4); Red Cell Distribution Width 13.2 % (11.5-14.5)
[2022-12-14 05:29] LABS: Anion Gap 6 mmol/L (8-16); Blood Urea Nitrogen 15 mg/dL (7-17); Calcium 7.9 mg/dL (8.4-10.2); Carbon Dioxide 30 mmol/L (22-30); Chloride 98 mmol/L (98-107); Estimated CRCL calculation 158 ml/min; Estimated Glomerular Filt Rate > 60; Glucose 363 mg/dL (65-110); Magnesium 1.5 mg/dL (1.6-2.3); Potassium 3.5 mmol/L (3.4-5.0); Sodium 134 mmol/L (137-145)
--- NOTE | 2022-12-14 07:43 | PM.PNCARD ---
Progress Note: A&P Assessment and Plan (1) Atrial fibrillation and flutter: Code(s): I48.91 - Unspecified atrial fibrillation; I48.92 - Unspecified atrial flutter Status: Acute Assessment and Plan: Could be due to obesity, undiagnosed CHALINO. She was in SVT, then atrial flutter, then atrial fib in ER. Initially on Diltiazem drip for rate control until cardioverted on Sotalol. [id number] 3. On Lovenox in ER, and this was changed to Eliquis 5 mg BID. Echo on 12/12/22 shows EF 65-70%, mild LVH, mild LAE. Started Sotalol 80 mg PO every 12 hours on 12/12/22 and check EKG 1-2 post each dose checking QT interval. Tolerating Sotalol well. Potassium 3.5. Give KCl 40 meq PO x1. Mag 1.5. Start Mag Ox 400 mg daily. May d/c home from cardiology standpoint. F/U with me within a week. (2) Hyperlipidemia: Code(s): E78.5 - Hyperlipidemia, unspecified Status: Acute Assessment and Plan: On Simvastatin. Start Fish Oil 2 gm BID. (3) Hypertension: Code(s): I10 - Essential (primary) hypertension Status: Acute Assessment and Plan: Stable. Started Losartan 50 mg daily (instead of home Lisinopril). (4) Smoking: Code(s): F17.200 - Nicotine dependence, unspecified, uncomplicated Status: Acute Assessment and Plan: Counseled regarding smoking cessation. (5) Snoring: Code(s): R06.83 - Snoring Status: Acute Assessment and Plan: Will need outpatient sleep study. Subjective Date/time seen: 12/14/22 07:43 Interval history: Denies chest pain or sob. Exam Const: General: cooperative, healthy appearing, comfortable and obese Nutritional Appearance: obese Orientation/consciousness: oriented to person, oriented to place and oriented to time Resp: Auscultation: clear to auscultation bilaterally, no crackles, no rales, no rhonchi and no wheezes Cardio: Rate: regular rate Rhythm: regular rhythm Heart sounds: no murmurs Peripheral pulses: dorsalis pedis present Neuro: General: oriented to person, oriented to place and oriented to time Extrem: Right lower extremity: edema Left lower extremity: edema Other: Trace edema of legs Objective Data Vital Signs Vital Signs: Vital Signs - 24 hr 12/13/22 08:00 12/13/22 09:49 12/13/22 09:58 Temperature 98.2 F Pulse Rate 80 85 Respiratory Rate 16 Blood Pressure 106/65 Pulse Oximetry 96 97 Oxygen Delivery Room Air 12/13/22 12:00 12/13/22 08:00 12/13/22 08:00 Temperature 98.0 F Pulse Rate 81 86 Respiratory Rate 16 Blood Pressure 114/63 Pulse Oximetry 98 Oxygen Delivery Room Air 12/13/22 10:00 12/13/22 12:00 12/13/22 14:00 Temperature Pulse Rate 88 88 88 Respiratory Rate Blood Pressure Pulse Oximetry Oxygen Delivery 12/13/22 12:00 12/13/22 16:00 12/13/22 16:00 Temperature Pulse Rate 97 Respiratory Rate Blood Pressure Pulse Oximetry Oxygen Delivery Room Air Room Air 12/13/22 16:00 12/13/22 18:00 12/13/22 19:53 Temperature 98.4 F 97.9 F Pulse Rate 86 92 96 Respiratory Rate 16 20 Blood Pressure 113/60 133/55 L Pulse Oximetry 97 98 Oxygen Delivery 12/13/22 20:50 12/13/22 22:57 12/13/22 20:00 Temperature 98.1 F Pulse Rate 94 83 95 Respiratory Rate 20 Blood Pressure 139/62 Pulse Oximetry 99 99 Oxygen Delivery Room Air 12/13/22 20:00 12/13/22 22:00 12/14/22 00:00 Temperature Pulse Rate 95 86 86 Respiratory Rate Blood Pressure Pulse Oximetry Oxygen Delivery 12/14/22 00:00 12/14/22 02:00 12/14/22 04:00 Temperature Pulse Rate 86 84 86 Respiratory Rate Blood Pressure Pulse Oximetry 98 Oxygen Delivery Room Air 12/14/22 04:00 12/14/22 04:00 12/14/22 06:00 Temperature 97.3 F L Pulse Rate 86 89 87 Respiratory Rate 20 Blood Pressure 127/54 L Pulse Oximetry 98 98 Oxygen Delivery Room Air Intake/Output Intake/Output: Intake & Output 12/11
[2022-12-14 08:07] LABS: Glucose Point of Care 335 mg/dl (65-105)
[2022-12-14] MEDS: INSULIN ASPART (*BKC) 100 UNITS/ML SUB-Q ×2 (08:49→12:25)
[2022-12-14] MEDS: GABAPENTIN 300 MG CAPSULE PO (08:49)
[2022-12-14] MEDS: POTASSIUM CHLORIDE 20 MEQ TABLET 40 MEQ PO (08:49)
[2022-12-14] MEDS: SOTALOL HCL 80 MG TABLET PO (08:50)
[2022-12-14] MEDS: LOSARTAN POTASSIUM 50 MG TABLET PO (08:50)
[2022-12-14] MEDS: OMEGA 3 POLYUNSAT FATTY ACIDS 1 GM CAP 2 GM PO (08:50)
[2022-12-14] MEDS: APIXABAN 5 MG TABLET PO (08:50)
[2022-12-14] MEDS: PIOGLITAZONE HCL 15 MG TAB PO (08:50)
[2022-12-14] MEDS: FLUoxetine HCL 20 MG CAPSULE PO (08:50)
--- NOTE | 2022-12-14 09:45 | PM.DS ---
DS: Admitting Diagnosis Discharge Date 12/14/2022 Admitting Diagnosis AFib with RVR DS: Discharge Diagnosis Discharge Diagnosis (1) Atrial fibrillation and flutter: Code(s): I48.91 - Unspecified atrial fibrillation; I48.92 - Unspecified atrial flutter Status: Acute (2) Diabetes mellitus: Code(s): E11.9 - Type 2 diabetes mellitus without complications Status: Acute (3) Hyperlipidemia: Code(s): E78.5 - Hyperlipidemia, unspecified Status: Acute DS: Summary Hospital Course Hospital Course: Progress Note: A&P Assessment and Plan (1) Atrial fibrillation and flutter: Could be due to obesity, undiagnosed CHALINO. She was in SVT, then atrial flutter, then atrial fib in ER. Initially on Diltiazem drip for rate control until cardioverted on Sotalol. [id number] 3. On Lovenox in ER, and this was changed to Eliquis 5 mg BID. Echo on 12/12/22 shows EF 65-70%, mild LVH, mild LAE. Started Sotalol 80 mg PO every 12 hours on 12/12/22 and check EKG 1-2 post each dose checking QT interval. Tolerating Sotalol well. Potassium 3.5. Give KCl 40 meq PO x1. Mag 1.5. Start Mag Ox 400 mg daily. November d/c home from cardiology standpoint. F/U with me within a week. (2) Hyperlipidemia: On Simvastatin. Start Fish Oil 2 gm BID. (3) Hypertension: Stable. Started Losartan 50 mg daily (instead of home Lisinopril). (4) Smoking: Counseled regarding smoking cessation. (5) Snoring: Will need outpatient sleep study. Patient is clinically stable and is being discharged home Time Spent with Patient Time attestation: Total time spent providing and/or coordinating discharge services: Exam Const: General: cooperative, healthy appearing, comfortable and obese Nutritional Appearance: obese Orientation/consciousness: oriented to person, oriented to place and oriented to time Resp: Auscultation: clear to auscultation bilaterally, no crackles, no rales, no rhonchi and no wheezes Cardio: Rate: regular rate Rhythm: regular rhythm Heart sounds: no murmurs Peripheral pulses: dorsalis pedis present Neuro: General: oriented to person, oriented to place and oriented to time Extrem: Right lower extremity: edema Left lower extremity: edema Other: Trace edema of legs DS: Data Data Completed and Pending Labs on day of discharge: Labs from last 24 hours 12/14/22 12/14/22 12/13/22 07:44 04:38 19:34 WBC 9.0 RBC 4.47 Hgb 12.5 Hct 37.7 MCV 84.3 MCH 28.0 MCHC 33.2 RDW 13.2 Plt Count 164 MPV 11.1 H Sodium 134 L Potassium 3.5 Chloride 98 Carbon Dioxide 30 Anion Gap 6 L BUN 15 Creatinine 0.40 L Estim Creat Clear Calc 158 Estimated GFR > 60 Glucose 363 H POC Capillary Glucose 335 H 489 H Calcium 7.9 L Magnesium 1.5 L 12/13/22 12/13/22 15:51 11:47 WBC RBC Hgb Hct MCV MCH MCHC RDW Plt Count MPV Sodium Potassium Chloride Carbon Dioxide Anion Gap BUN Creatinine Estim Creat Clear Calc Estimated GFR Glucose POC Capillary Glucose 389 H 310 H Calcium Magnesium Discharge Plan Discharge Consulting providers: Cash Lind Discharging Clinician: Andreas Vuong Anticipated Discharge Date/Time: 12/14/22 09:43 Patient Disposition: Home, Self-Care Activity: no preference Diet: heart healthy Patient Instructions: Antibiotic Form, How to Stop Smoking (DC), Cigarette Smoking and Your Health (GEN) Stand Alone Forms: General Discharge Information Follow-up/Referrals: Cash Lind DO [Physician] - Luis M Kirkpatrick MD [Primary Care Provider] - Discharge Medications: New Eliquis 5 mg Tablet 5 mg PO Q12HR Qty: 60 0RF losartan [Cozaar] 50 mg Tablet 50 mg PO DAILY Qty: 30 0RF magnesium oxide 400 mg (241.3 mg magnesium) Tablet 400 mg PO DAILY@1200 Qty: 30 0RF sotalol 80 mg Tablet 80 mg PO Q12HR Qty: 60 0RF omega-3 acid ethyl
[2022-12-14] MEDS: MAGNESIUM OXIDE 400 MG TABLET PO (12:26)
[2022-12-14 16:35] LABS: Glucose Point of Care 340 mg/dl (65-105)
== END 2022-12-14 13:10 | disposition home or self-care (01) | DRG 201 ==
LOC: ANHED 10:06 → ANHIMU 10:39
PROVIDERS: Nurse Practitioner; Admitting Provider Family Medicine; Emergency Provider Emergency Medicine; PCP Family Medicine; Visit Provider Hospitalist
DX: I48.91 Unspecified atrial fibrillation (principal); E10.65 Type 1 diabetes mellitus with hyperglycemia; I48.92 Unspecified atrial flutter; L02.412 Cutaneous abscess of left axilla; E66.01 Morbid (severe) obesity due to excess calories; Z68.35 Body mass index [BMI] 35.0-35.9, adult; G47.33 Obstructive sleep apnea (adult) (pediatric); E78.5 Hyperlipidemia, unspecified; I47.1 Supraventricular tachycardia; I10 Essential (primary) hypertension; F41.8 Other specified anxiety disorders; Z96.653 Presence of artificial knee joint, bilateral; F17.210 Nicotine dependence, cigarettes, uncomplicated; Z79.4 Long term (current) use of insulin; Z79.84 Long term (current) use of oral hypoglycemic drugs; Z86.718 Personal history of other venous thrombosis and embolism; Z86.711 Personal history of pulmonary embolism; Z90.49 Acquired absence of other specified parts of digestive tract
CPT/HCPCS: 36415; 36600; 71045; 80048; 80053; 80061; 82375; 82805; 82948; 83036; 83050; 83605; 83735; 84443; 84484; 85025; 85027; 85610; 85730; 93005; 94762; 96361; 96374; 96375; 96376; 99285; A9270; C8929; G0378; G0379; J0153; J1650; J1815; J7030; Q9957

== ENCOUNTER 2024-01-05 10:14 | Emergency (ER) | payer OTHER, SELFPAY ==
[2024-01-05 10:18] VITALS: BP 130/81; PULSE 95; RESP 14; TEMP 37; O2SAT 99
--- NOTE | 2024-01-05 10:46 | ED.WOUNDLAC ---
HPI - Wound/Laceration General Chief Complaint: Wound/Laceration Stated Complaint: boil to axilla Time Seen by Provider: 01/05/24 10:18 Source: patient Mode of arrival: ambulatory Limitations: no limitations History of Present Illness HPI narrative: Patient is a 53 y/o female who presents to the ED with c/o a boil to her to R axillary region. Patient reports she has hx of hidradenitis suppurativa and hx of frequent recurrent abscesses. She has required surgical I&Ds in the past. States she noticed the abscess to her R axilla for the past 1 week. Has been trying intermittent warm compresses without improvement. States it feels as though to smaller abscesses have coalesced into 1. Denies fevers. She does have history of diabetes and states her blood sugars have been borderline, low 200s, though this is fairly normal for her. Related Data Home Medications Medication Instructions Recorded Confirmed gabapentin 300 mg capsule 300 mg PO Q12H 06/14/21 12/16/23 simvastatin 20 mg tablet 20 mg PO HS 06/14/21 12/16/23 lisinopril 10 mg tablet 10 mg PO DAILY 09/15/23 12/16/23 metformin 1,000 mg tablet 1,000 mg PO BID 09/15/23 12/16/23 insulin lispro 100 unit/mL 1 sliding scale dose subcut 12/16/23 12/16/23 subcutaneous pen [id number] Allergies Allergy/AdvReac Type Severity Reaction Status Date / Time clindamycin Allergy Unknown Hives / Verified 01/05/24 10:17 Red Face sulfamethoxazole Allergy Unknown Vomiting Verified 01/05/24 10:17 trimethoprim Allergy Unknown Vomiting Verified 01/05/24 10:17 celecoxib AdvReac Mild Unknown Verified 01/05/24 10:17 propoxyphene AdvReac Unknown Nausea and Verified 01/05/24 10:17 Vomiting hydrocodone [From Lortab] AdvReac Nausea and Verified 01/05/24 10:17 Vomiting Review of Systems Review of Systems: CONSTITUTIONAL: Denies fever, chills, or sweats. SKIN: See HPI MUSCULOSKELETAL: See HPI All systems reviewed & are unremarkable except as noted in HPI and below PMFSH Past Medical History Medical History Depression with anxiety Diabetes mellitus History of DVT (deep vein thrombosis) History of pulmonary embolism Hyperlipidemia Hypertension Surgical History Surgical History History of bilateral knee replacement History of cholecystectomy History of orthopedic surgery History of tonsillectomy Family History Family History Unknown Adopted Social History Social History Social History: The patient lives with her . The patient continues to smoke approximately 3-4 cigarettes a day. The patient does work at [employer]. 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 Code status full code Smoking status: Current every day smoker Second hand tobacco smoke exposure: No Alcohol intake: current Substance use: never Lack of Transportation: No Lack of Food: Never True Current Housing: I Have Housing Concerned About Future Housing: No Difficulty Paying Gas/Electric Bills: No Difficulty Paying for Meds: No Currently Unemployed: No Education: High School Diploma/GED Difficulty w/ Childcare or Family Care: No Living arrangements: with family Gender identity (if verbalized by the patient): Female Sexual Orientation (if Verbalized by the Patient): Straight or Heterosexual Spiritual care concerns: No Exam Narrative: GENERAL: Well appearing, obese with BMI of 36.8, non-toxic, in no acute distress. HEAD: Normocephalic, atraumatic. RESPIRATORY: Airway patent, respirations nonlabored. CARDIOVASCULAR: Regular rate and rhythm MUSCULOSKELETAL: Moves all extremities. No gross deformities. SKIN: Warm, dry, normal color. Large area of induration to R axillary region with elidia
[2024-01-05] MEDS: DOXYCYCLINE HYCLATE 100 MG TABLET PO (10:48)
[2024-01-05 11:50] VITALS: BP 127/80; PULSE 68; RESP 16; O2SAT 100
== END 2024-01-05 11:50 | disposition home or self-care (01) ==
PROVIDERS: Emergency Provider Physician Assistant; PCP Nurse Practitioner Family
DX: L02.411 Cutaneous abscess of right axilla (principal); L73.2 Hidradenitis suppurativa; I10 Essential (primary) hypertension; E11.9 Type 2 diabetes mellitus without complications; E78.5 Hyperlipidemia, unspecified; F17.210 Nicotine dependence, cigarettes, uncomplicated; Z96.653 Presence of artificial knee joint, bilateral; Z86.718 Personal history of other venous thrombosis and embolism; Z86.711 Personal history of pulmonary embolism; Z90.49 Acquired absence of other specified parts of digestive tract; Z79.4 Long term (current) use of insulin; Z79.84 Long term (current) use of oral hypoglycemic drugs; Z79.899 Other long term (current) drug therapy; Z79.01 Long term (current) use of anticoagulants
CPT/HCPCS: 99283; A9270

== ENCOUNTER 2024-06-10 18:08 | Observation (INO) | payer OTHER, SELFPAY ==
[2024-06-10] VITALS (8 sets, daily range): BP systolic 110–132; BP diastolic 57–75; PULSE 100–105; RESP 10–20; TEMP 36.4; O2SAT 90–100
--- NOTE | ~2024-06-10 | CT_ITS ---
EXAMINATION: CT abdomen pelvis w con DATE: 06/10/2024 23:58 INDICATION: Abscess. TECHNIQUE: Computed tomography (CT) of the abdomen and pelvis was performed with 100 mL Omnipaque 350 intravenous contrast. Automated exposure control and iterative reconstruction technique were employe d. The dose-length product was 989.89 mGy-cm. COMPARISON: CT abdomen and pelvis 06/14/2021 FINDINGS: The visualized portions of the lung bases demonstrate mild atelectasis. No pleural effusion . The heart size is normal. There are coronary artery calcifications. No pericardial effusion. The li yana is normal. There are changes of cholecystectomy. The spleen, pancreas, and adrenal glands are nor mal. There is cortical thinning of the kidneys. There are no dilated loops of bowel. The appendix is normal. There are no pathologically enlarged lymph nodes. There is no free intraperitoneal fluid. The re is left abdominal skin thickening and subcutaneous fat stranding, consistent with cellulitis. Ther e is a 2.6 x 1.5 cm hypodense mass abutting the skin in this area. There is mild thoracic and lumbar stenosis. IMPRESSION: 1. Left abdominal wall cellulitis with 2.6 x 1.5 cm mass that may be phlegmon or early abscess. Reviewed, dictated and finalized at location A. [employer] IMPRESSION: 1. Left abdominal wall cellulitis with 2.6 x 1.5 cm mass that may be phlegmon o r early abscess.
--- NOTE | 2024-06-10 18:53 | ECG_ITS ---
Test Date: 2024-06-10 23:05:35 Measurements Intervals [place] Rate: 106 P: 55 [place]: 172 QRS: 57 QRSD: 89 T: 65 QT: 356 QTc: 473 Interpretive Statements SINUS TACHYCARDIA BORDERLINE ST-T WAVE ABNORMALITY- HIGH LATERAL LEADS BASELINE ARTIFACT- I, II, AVR, AVL ABNORMAL ECG No previous ECG available for comparison Electronically Signed On 06-11-2024 07:36:02 MEDICAL CUSTOMER SERVICE REPRESENTATIVE by Cash Lind D.O.
--- NOTE | 2024-06-10 18:57 | ED_ITS ---
HPI - Skin/Abscess/Foreign Bdy General Chief complaint: Skin/Abscess/Foreign Body <Arabella Prado APRN - Last Filed: 06/10/24 19:06> Stated complaint: BOIL TO L ABD <Arabella Prado APRN - Last Filed: 06/10/24 19:06> Time Seen by Provider: 06/10/24 18:45 <Arabella Prado APRN - Last Filed: 06/10/24 19:06> Focused HPI: Patient is a 54-year-old female who presents to the ER with concerns of a left abdominal abscess. She reports she has history of H.S. and frequently gets abscesses. Patient reports she 1st noticed this abscess approximately 3 days ago. She reports yesterday she went to her doctor and was put on Zofran and Keflex. Patient reports yesterday the redness was the size of a tennis ball and today it's the size of a softball. She also reports today she has had a low-grade fever, feels weak and dizzy. Patient denies any swollen lymph nodes in her groin. She does endorse continued nausea and vomited, which is not relieved by Zofran. GENERAL: Well-appearing, well-nourished, and in no acute distress. HEAD: Normocephalic, atraumatic. CHEST: Clear to auscultation. ?No respiratory distress. HEART: Tachycardia, regular rhythm.? NEURO: ?Alert and oriented x3. Patient screened in triage and initial orders placed.? ?Additional care and disposition to be based upon?diagnostic testing and treatment. <Arabella Prado APRN - Last Filed: 06/10/24 19:06> History of Present Illness HPI narrative: agree with HPI above <Rylan Wise MD - Last Filed: 06/11/24 07:40> Related Data Home medications: Home Medications Medication Instructions Recorded Confirmed gabapentin 300 mg capsule 300 mg PO Q12H 06/14/21 06/11/24 simvastatin 20 mg tablet 20 mg PO HS 06/14/21 06/11/24 lisinopril 10 mg tablet 10 mg PO DAILY 09/15/23 06/11/24 metformin 1,000 mg tablet 1,000 mg PO BID 09/15/23 06/11/24 <Arabella Prado APRN - Last Filed: 06/10/24 19:06> Allergies/Adverse reactions: Allergies Allergy/AdvReac Type Severity Reaction Status Date / Time clindamycin Allergy Unknown Hives / Verified 06/10/24 23:55 Red Face sulfamethoxazole Allergy Unknown Vomiting Verified 06/10/24 23:55 trimethoprim Allergy Unknown Vomiting Verified 06/10/24 23:55 celecoxib AdvReac Mild Unknown Verified 06/10/24 23:55 propoxyphene AdvReac Unknown Nausea and Verified 06/10/24 23:55 Vomiting hydrocodone [From Lortab] AdvReac Nausea and Verified 06/10/24 23:55 Vomiting <Arabella Prado APRN - Last Filed: 06/10/24 19:06> Review of Systems Review of Systems: as reviewed above in HPI <Rylan Wise MD - Last Filed: 06/11/24 07:40> All systems reviewed & are unremarkable except as noted in HPI and below <Rylan Wise MD - Last Filed: 06/11/24 07:40> [facility] Past Medical History Medical History: Medical History (Updated 06/11/24 @ 07:40 by Rylan Wise MD) Depression with anxiety Diabetes mellitus History of DVT (deep vein thrombosis) History of pulmonary embolism Hyperlipidemia Hypertension <Arabella Prado APRN - Last Filed: 06/10/24 19:06> Surgical History Surgical History: Surgical History History of bilateral knee replacement History of cholecystectomy History of orthopedic surgery History of tonsillectomy <Arabella Prado APRN - Last Filed: 06/10/24 19:06> Family History Family History: Family History Unknown Adopted <Arabella Prado APRN - Last Filed: 06/10/24 19:06> Social History Social History: Social History Social History: The patient lives with her . The patient continues to smoke approximately 3-4 cigarettes a day. The patient does work at [employer]. 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 Code status full code Smoking status: Current every day smoker Tobacco type: cigarettes Second hand tobacco smoke exposure: No Alcohol intake: current Drinks per week: 5 Substance use: never Substance use type: marijuana Do You Feel Safe in your Home?: Yes Lack of Transportation: YES Lack of Food: Never True Current Housing: I Have Housing Concerned About Future Housing: No Difficulty Paying Gas/Electric Bills: No Difficulty Paying for Meds: No Currently Unemployed: No Education: Bachelor's Degree Difficulty w/ Childcare or Family Care: No Living arrangements: with family Gender identity (if verbalized by the patient): Female Sexual Orientation (if Verbalized by the Patient): Straight or Heterosexual Spiritual care concerns: No <Arabella Prado APRN - Last Filed: 06/10/24 19:06> Exam Narrative: GENERAL: [Well-appearing, well-nourished, and in no acute distress.] HEAD: [Normocephalic, atraumatic.] EYES: [PERRLA and EOMI.] ENT: Nares clear, no rhinorrhea or epistaxis. Mucous membranes moist. NECK: Supple. CHEST: [Clear to auscultation. No respiratory distress.] HEART: [Regular rate and rhythm]. No murmur heard. [Normal peripheral pulses.] ABDOMEN: [Soft, nondistended], no rigidity or guarding. In the left lower quadrant of the abdomen there is a 1.5 cm x 1.5 cm ulceration with no active bleeding, is very warm and tender to palpation. Surrounding induration of approximately 4 x 4 cm without any solid underlying masses.] EXTREMITIES: Normal range of motion. [No edema.] SKIN: Multiple postsurgical areas of scarring in the abdomen, axilla groin region from hidradenitis surgeries NEURO: [No focal deficits]. Alert and oriented [x3.] PSYCH: [Normal mood and affect.] <Rylan Wise MD - Last Filed: 06/11/24 07:40> Course Vital Signs Vital signs: Vital Signs Temperature 36.4 C L 06/10/24 18:09 Pulse Rate 100 06/10/24 18:09 Respiratory Rate 20 06/10/24 18:09 Blood Pressure 132/75 06/10/24 18:09 Pulse Oximetry 100 06/10/24 18:09 Oxygen Delivery Room Air 06/10/24 18:09 Temperature 36.7 C 06/11/24 06:00 Pulse Rate 95 06/11/24 06:00 Respiratory Rate 20 06/11/24 06:00 Blood Pressure 128/67 06/11/24 06:00 Pulse Oximetry 97 06/11/24 06:00 Oxygen Delivery Room Air 06/11/24 04:13 <Arabella Prado, [employer] - Last Filed: 06/10/24 19:06> Vital Signs Temperature 36.4 C L 06/10/24 18:09 Pulse Rate 100 06/10/24 18:09 Respiratory Rate 20 06/10/24 18:09 Blood Pressure 132/75 06/10/24 18:09 Pulse Oximetry 100 06/10/24 18:09 Oxygen Delivery Room Air 06/10/24 18:09 Temperature 36.7 C 06/11/24 06:00 Pulse Rate 95 06/11/24 06:00 Respiratory Rate 20 06/11/24 06:00 Blood Pressure 128/67 06/11/24 06:00 Pulse Oximetry 97 06/11/24 06:00 Oxygen Delivery Room Air 06/11/24 04:13 <Rylan Wise MD - Last Filed: 06/11/24 07:40> MDM - Skin/Abscess/Foreign Bdy MDM Narrative Medical decision making narrative: 54-year-old female with a history of hidradenitis suppurativa, insulin- dependent diabetes and paroxysmal AFib. Patient presents to the emergency depart with left lower quadrant ulceration and abscess formation. She is also stating that her blood sugars have been poorly controlled at home. She has been sick with generalized symptoms including fatigue, nausea, vomiting, abdominal pain. She states that similar symptoms have been going around the office and reviewed sit to a viral syndrome. She states her blood sugars at home upon above 400 despite her medication management. She states that for last few days she is noticing worsening ulceration and abscess formation or left lower quadrant. This is similar to her previous hidradenitis suppurative of flares and cellulitis. She states that she went to her primary care provider several days ago and prescribed Keflex but notices that her wound is worsening and starting to have drainage. Denies any fevers at home. Her vital signs reassuring aside from a very minor tachycardia with a pulse of 104. She has otherwise well-appearing but does have a small ulceration that has surrounding induration and warmth in the left lower quadrant the abdomen consistent with a cutaneous abscess but the larger of induration makes me suspicious for other underlying process such as potential fistulous tract formation or deeper soft tissue infection. Her insulin-dependent diabetes and her blood sugars have been uncontrolled at home could be complicated her wound or could also be manifesting as physical symptoms and potential for DKA is high. Laboratory studies were obtained including CBC, CMP, lipase, troponin, chest x-ray, EKG, CT abdomen pelvis with contrast, beta hydroxybutyrate. She is given morphine and Zofran for symptom control. VBG ordered. she was given vancomycin with pharmacy to dose for her abscess formation with considerations for skin soft tissue infection that could be complicated by diabetes. Cefepime also ordered to cover for Pseudomonas. Workup revealed a leukocytosis of 18.7 consistent with a active infectious process likely secondary to her abdominal wall process. Hemoglobin 15.5, normal platelets. Likely somewhat hemoconcentrated given the elevations in these levels from baseline. Normal coagulation studies. Chemistry panel with largely unremarkable electrolytes, BUN and creatinine within normal limits. Glucose at 179 and stable. Normal CMP. Negative troponin. Mildly elevated CRP, mildly elevated beta hydroxybutyrate. Negative lactic acid. CT of the abdomen pelvis reveals left abdominal wall cellulitis and measured 2.6 x 1.5 cm with potential early phlegmon versus early abscess formation. I discussed the case with the inpatient team Dr. Alfred and after we relayed the imaging findings, 1 over the laboratory studies and plan of care with vancomycin and cefepime, she was accepted to admission at this time. General surgery was consulted given the potential early abscess formation in the abdominal wall as well. Patient was agreeable to inpatient admission at this time and stable for admission to a medical-surgical bed. <Rylan Wise MD - Last Filed: 06/11/24 07:40> Medical Records Attestation: I reviewed the patient's medical records. <Rylan Wise MD - Last Filed: 06/11/24 07:40> Lab Data Attestation: I reviewed the patient's lab results. <Rylan Wise MD - Last Filed: 06/11/24 07:40> Result diagrams: 06/10/24 23:03 06/11/24 00:14 <Arabella Prado APRN - Last Filed: 06/10/24 19:06> Labs: Lab Results 06/10/24 06/10/24 06/11/24 Range/Units 23:03 23:08 00:14 WBC 18.7 H (4.5-10.0) K/mm3 RBC 5.41 H (4.2-5.4) M/mm3 Hgb 15.5 H D (12.0-15.0) g/dL Hct 45.4 (37.0-47.0) % MCV 83.9 (80-100) fl MCH 28.7 (26-34) pg MCHC 34.1 (32-36) g/dl RDW 12.9 (11.5-14.5) % Plt Count 285 D (150-375) k/mm3 MPV 10.2 (7.4-10.4) fl Immature Gran % (Auto) 0.5 (0-0.5) % Neut % (Auto) 75.9 H (45.5-73.1) % Lymph % (Auto) 14.5 L (18.3-44.2) % [place] % (Auto) 8.0 (2.6-8.5) % Eos % (Auto) 0.9 (0-4.4) % Baso % (Auto) 0.2 (0.2-1.2) % Lymph # (Auto) 2.71 (0.9-3.2) K/mm3 [place] # (Auto) 1.5 H (0.1-0.6) K/mm3 Eos # (Auto) 0.2 (0-0.3) K/mm3 Baso # (Auto) 0.0 (0.0-0.1) K/mm3 Abs Immat Gran (auto) 0.09 H (0.00-0.031) K/mm3 Absolute Neuts (auto) 14.2 H (1.3-6.7) K/mm3 Absolute Nucleated RBC 0.000 (0.0-0.012) K/mm3 Nucleated RBC % 0.0 (0.0-0.2) % PT 13.1 (11.1-14.7) Seconds INR 0.9 APTT 26.8 (22.3-36.8) Seconds Sodium 134 L (137-145) mmol/L Potassium 3.7 (3.4-5.0) mmol/L Chloride 95 L (98-107) mmol/L Carbon Dioxide 28 (22-30) mmol/L Anion Gap 11 (4-12) mmol/L BUN 25 H D (7-17) mg/dL Creatinine 0.60 L 0.50 L (0.7-1.0) mg/dL Estim Creat Clear Calc 100 118 ml/min Estimated GFR > 60 > 60 (59 - ) Glucose 179 H (65-110) mg/dL Lactic Acid 1.0 (0.7-2.0) mmol/L Calcium 9.9 (8.4-10.2) mg/dL Total Bilirubin 0.9 (0.2-1.3) mg/dL AST 17 (14-36) U/L ALT 9 (6-35) U/L Alkaline Phosphatase 94 (38-126) U/L Troponin I < 0.012 (0.000-0.034) ng/mL C-Reactive Protein 13.5 H (<1.0) mg/dL Total Protein 8.0 (6.3-8.2) g/dL Albumin 4.5 (3.5-5.1) g/dL Beta-Hydroxybutyrate/Acetoacetate 1.59 H (0.02-0.27) mmol/L <Arabella Prado, [employer] - Last Filed: 06/10/24 19:06> Lab Results 06/10/24 06/10/24 06/11/24 Range/Units 23:03 23:08 00:14 WBC 18.7 H (4.5-10.0) K/mm3 RBC 5.41 H (4.2-5.4) M/mm3 Hgb 15.5 H D (12.0-15.0) g/dL Hct 45.4 (37.0-47.0) % MCV 83.9 (80-100) fl MCH 28.7 (26-34) pg MCHC 34.1 (32-36) g/dl RDW 12.9 (11.5-14.5) % Plt Count 285 D (150-375) k/mm3 MPV 10.2 (7.4-10.4) fl Immature Gran % (Auto) 0.5 (0-0.5) % Neut % (Auto) 75.9 H (45.5-73.1) % Lymph % (Auto) 14.5 L (18.3-44.2) % [place] % (Auto) 8.0 (2.6-8.5) % Eos % (Auto) 0.9 (0-4.4) % Baso % (Auto) 0.2 (0.2-1.2) % Lymph # (Auto) 2.71 (0.9-3.2) K/mm3 [place] # (Auto) 1.5 H (0.1-0.6) K/mm3 Eos # (Auto) 0.2 (0-0.3) K/mm3 Baso # (Auto) 0.0 (0.0-0.1) K/mm3 Abs Immat Gran (auto) 0.09 H (0.00-0.031) K/mm3 Absolute Neuts (auto) 14.2 H (1.3-6.7) K/mm3 Absolute Nucleated RBC 0.000 (0.0-0.012) K/mm3 Nucleated RBC % 0.0 (0.0-0.2) % PT 13.1 (11.1-14.7) Seconds INR 0.9 APTT 26.8 (22.3-36.8) Seconds Sodium 134 L (137-145) mmol/L Potassium 3.7 (3.4-5.0) mmol/L Chloride 95 L (98-107) mmol/L Carbon Dioxide 28 (22-30) mmol/L Anion Gap 11 (4-12) mmol/L BUN 25 H D (7-17) mg/dL Creatinine 0.60 L 0.50 L (0.7-1.0) mg/dL Estim Creat Clear Calc 100 118 ml/min Estimated GFR > 60 > 60 (59 - ) Glucose 179 H (65-110) mg/dL Lactic Acid 1.0 (0.7-2.0) mmol/L Calcium 9.9 (8.4-10.2) mg/dL Total Bilirubin 0.9 (0.2-1.3) mg/dL AST 17 (14-36) U/L ALT 9 (6-35) U/L Alkaline Phosphatase 94 (38-126) U/L Troponin I < 0.012 (0.000-0.034) ng/mL C-Reactive Protein 13.5 H (<1.0) mg/dL Total Protein 8.0 (6.3-8.2) g/dL Albumin 4.5 (3.5-5.1) g/dL Beta-Hydroxybutyrate/Acetoacetate 1.59 H (0.02-0.27) mmol/L <Rylan Wise MD - Last Filed: 06/11/24 07:40> ABG Data ABG results: 06/11/24 00:14 VBG pH 7.418 H* VBG pCO2 34.9 L VBG pO2 35.1 VBG HCO3 22.0 L O2 Delivery Device Room air O2 Liters/Min Not Reportable FiO2 21 <Arabella Prado APRN - Last Filed: 06/10/24 19:06> 06/11/24 00:14 VBG pH 7.418 H* VBG pCO2 34.9 L VBG pO2 35.1 VBG HCO3 22.0 L O2 Delivery Device Room air O2 Liters/Min Not Reportable FiO2 21 <Rylan Wise MD - Last Filed: 06/11/24 07:40> Imaging Data Attestation: I personally reviewed and interpreted this imaging study as follows: <Rylan Wise MD - Last Filed: 06/11/24 07:40> Radiologist's impression: Impressions Abdomen/Pelvis CT 06/10/24 23:58 IMPRESSION: 1. Left abdominal wall cellulitis with 2.6 x 1.5 cm mass that may be phlegmon or early abscess. <Rylna Wise MD - Last Filed: 06/11/24 07:40> Discharge Plan Discharge Clinical Impression: Abdominal wall cellulitis <Arabella Prado APRN - Last Filed: 06/10/24 19:06> Patient Disposition: Still a Patient <Arabella Prado APRN - Last Filed: 06/10/24 19:06> Condition: Stable <Arabella Prado APRN - Last Filed: 06/10/24 19:06>
[2024-06-10 23:08] LABS: Basophils Percent Auto 0.2 % (0.2-1.2); Eosinophils Absolute Auto 0.2 K/mm3 (0-0.3); Eosinophils Percent Auto 0.9 % (0-4.4); Hematocrit 45.4 % (37.0-47.0); Hemoglobin 15.5 g/dL (12.0-15.0); Immature Granulocyte Absolute 0.09 K/mm3 (0.00-0.031); Immature Granulocyte Percent A 0.5 % (0-0.5); Lymphocytes Absolute Auto 2.71 K/mm3 (0.9-3.2); Lymphocytes Percent Auto 14.5 % (18.3-44.2); Mean Corpuscular HGB Conc 34.1 g/dl (32-36); Mean Corpuscular Hemoglobin 28.7 pg (26-34); Mean Corpuscular Volume 83.9 fl (80-100); Mean Platelet Volume 10.2 fl (7.4-10.4); Monocytes Absolute Auto 1.5 K/mm3 (0.1-0.6); Neutrophils Absolute Auto 14.2 K/mm3 (1.3-6.7); Neutrophils Percent Auto 75.9 % (45.5-73.1); Platelet Count Result 285 k/mm3 (150-375); Red Blood Count 5.41 M/mm3 (4.2-5.4); Red Cell Distribution Width 12.9 % (11.5-14.5); White Blood Count 18.7 K/mm3 (4.5-10.0)
[2024-06-10 23:27] LABS: INR 0.9; Prothrombin Time 13.1 Seconds (11.1-14.7)
[2024-06-10 23:28] LABS: Alanine Aminotransferase 9 U/L (6-35); Albumin Level 4.5 g/dL (3.5-5.1); Alkaline Phosphatase 94 U/L (38-126); Anion Gap 11 mmol/L (4-12); Aspartate Amino Transferase 17 U/L (14-36); Bilirubin,Total 0.9 mg/dL (0.2-1.3); Blood Urea Nitrogen 25 mg/dL (7-17); Calcium 9.9 mg/dL (8.4-10.2); Carbon Dioxide 28 mmol/L (22-30); Chloride 95 mmol/L (98-107); Estimated CRCL calculation 100 ml/min; Estimated Glomerular Filt Rate > 60; Glucose 179 mg/dL (65-110); Partial Thromboplastin Time 26.8 Seconds (22.3-36.8); Potassium 3.7 mmol/L (3.4-5.0); Sodium 134 mmol/L (137-145)
[2024-06-10 23:53] LABS: CRP 13.5 mg/dL (<1.0)
[2024-06-10 23:56] LABS: Troponin I < 0.012 ng/mL (0.000-0.034)
[2024-06-11] VITALS (12 sets, daily range): BP systolic 101–130; BP diastolic 56–76; PULSE 91–109; RESP 10–21; TEMP 36.1–36.8; O2SAT 92–100; BMI 33.8
[2024-06-11 00:14] LABS: Beta-Hydroxybutyrate/Acetoacetate 1.59 mmol/L (0.02-0.27)
[2024-06-11] MEDS: MORPHINE SULFATE (*CRX) 4 MG/ML INJ IV PUSH ×3 (00:21→20:59)
[2024-06-11] MEDS: VANCOMYCIN 1,250 MG/NS 250 ML 1,250 MG/250 ML BAG 166.67 MG IVPB (00:21)
[2024-06-11] MEDS: ONDANSETRON INJ 4 MG/2 ML VIAL IV PUSH (00:21)
[2024-06-11 00:28] LABS: Fractional Inspired Oxygen 21 %; PCO2 VBG 34.9 mmHg (42.0-48.0); PO2 VBG 35.1 mmHg (35.0-45.0)
[2024-06-11 00:30] LABS: pH VBG 7.418 (7.300-7.400)
[2024-06-11 00:31] LABS: Device ROOM AIR; Estimated CRCL calculation 118 ml/min; Estimated Glomerular Filt Rate > 60
[2024-06-11] MEDS: CEFEPIME 2 GM/NS 50 ML 2 GM/50 ML BAG IVPB (01:58)
[2024-06-11] MEDS: VANCOMYCIN 1,000 MG/NS 250 ML 1,000 MG/250 ML BAG 250 MG IVPB (02:25)
--- NOTE | 2024-06-11 03:53 | ADMGEN ---
This patient, Whit Segovia, was admitted to 3 [facility] Surg Room 309-01. Patient/family oriented to hospital policies and general routines including ID bracelet, bed and alarms, visiting hours, pain management, procedures, bathroom and other care routines, personal items, smoking policy, room service/diet, and visiting hours. Information on how to activate the Rapid Response Team has been discussed. Patient/Family are encouraged to report perceived risks to care and to ask questions if they do not understand what they are told or what they should do.
[2024-06-11 04:22] LABS: Glucose Point of Care 145 mg/dl (65-105)
[2024-06-11 08:20] LABS: Basophils Percent Auto 0.2 % (0.2-1.2); Eosinophils Absolute Auto 0.2 K/mm3 (0-0.3); Eosinophils Percent Auto 1.3 % (0-4.4); Hematocrit 41.8 % (37.0-47.0); Hemoglobin 14.1 g/dL (12.0-15.0); Immature Granulocyte Absolute 0.07 K/mm3 (0.00-0.031); Immature Granulocyte Percent A 0.4 % (0-0.5); Lymphocytes Absolute Auto 2.32 K/mm3 (0.9-3.2); Lymphocytes Percent Auto 13.9 % (18.3-44.2); Mean Corpuscular HGB Conc 33.7 g/dl (32-36); Mean Corpuscular Hemoglobin 28.5 pg (26-34); Mean Corpuscular Volume 84.6 fl (80-100); Mean Platelet Volume 10.2 fl (7.4-10.4); Monocytes Absolute Auto 1.6 K/mm3 (0.1-0.6); Monocytes Percent Auto 9.5 % (2.6-8.5); Neutrophils Absolute Auto 12.5 K/mm3 (1.3-6.7); Neutrophils Percent Auto 74.7 % (45.5-73.1); Platelet Count Result 247 k/mm3 (150-375); Red Blood Count 4.94 M/mm3 (4.2-5.4); Red Cell Distribution Width 12.9 % (11.5-14.5); White Blood Count 16.7 K/mm3 (4.5-10.0)
[2024-06-11 08:44] LABS: Alanine Aminotransferase 8 U/L (6-35); Alkaline Phosphatase 88 U/L (38-126); Anion Gap 10 mmol/L (4-12); Aspartate Amino Transferase 14 U/L (14-36); Bilirubin,Total 0.7 mg/dL (0.2-1.3); Blood Urea Nitrogen 25 mg/dL (7-17); Calcium 9.2 mg/dL (8.4-10.2); Carbon Dioxide 25 mmol/L (22-30); Chloride 98 mmol/L (98-107); Estimated CRCL calculation 119 ml/min; Estimated Glomerular Filt Rate > 60; Glucose 229 mg/dL (65-110); Magnesium 1.8 mg/dL (1.6-2.3); Potassium 3.9 mmol/L (3.4-5.0); Sodium 133 mmol/L (137-145)
[2024-06-11] MEDS: MORPHINE SULFATE (*CRX) 2 MG/ML INJ IV PUSH (08:47)
--- NOTE | 2024-06-11 10:29 | P.HP_ITS ---
H&P: HPI History of Present Illness Date/Time: 06/11/24 10:29 Chief Complaint: Patient came to Narrative: Patient is a 54 year old female that presented to the ER with concerns of left abdominal abscess. Patient reports history of hidradenitis suppurativa with frequent abscesses, patient reports that she also has one in her right arm pit that is still healing that popped up a month ago and she can still get drainage from. Patient reports that she first noticed the drainage approximately 3 days ago. She reports that she went to her primary doctor yesterday and was started on Keflex and Zofran. Patient reports that yesterday the redness was the size of a tennis ball and today it's the size of a softball in the ER. Patient reports pain in her left side is a 5 , constant, burning and feels raw. Patient reports that she had vomiting and diarrhea at home, patient took pepto bismol and diarrhea has subsided. Patient reports dyspnea on exertion and fatigue. Patient denies fever, nausea, vomiting, headache, or dizziness at present. Patient reports having her HgbA1C checked at primary a month ago that was 7.2%. Family at bedside. CT abdomen/pelvis with contrast showed: Left abdominal wall cellulitis with 2.6 x 1.5 cm mass that may be phlegmon or early abscess. WBC 18.7 in ER and improved to 16.7 on recheck after starting IV Vancomycin 1,500 mg IVPB q12. Creatinine 0.50, GFR >60. Patient is afebrile. Review of Systems Review of Systems: All systems reviewed & are unremarkable except as noted in HPI and below PMFSH Past Medical History Medical History (Updated 06/11/24 @ 07:40 by Rylan Wise MD) Depression with anxiety Diabetes mellitus History of DVT (deep vein thrombosis) History of pulmonary embolism Hyperlipidemia Hypertension Surgical History Surgical History History of bilateral knee replacement History of cholecystectomy History of orthopedic surgery History of tonsillectomy Family History Family History Unknown Adopted Social History Social History Social History: The patient lives with her . The patient continues to smoke approximately 3-4 cigarettes a day. The patient does work at [employer]. Her is a durable power drapery cutter for [employer] [place]. Code status full code Smoking status: Current every day smoker Tobacco type: cigarettes Second hand tobacco smoke exposure: No Alcohol intake: current Drinks per week: 5 Substance use: never Substance use type: marijuana Do You Feel Safe in your Home?: Yes Lack of Transportation: YES Lack of Food: Never True Current Housing: I Have Housing Concerned About Future Housing: No Difficulty Paying Gas/Electric Bills: No Difficulty Paying for Meds: No Currently Unemployed: No Education: Bachelor's Degree Difficulty w/ Childcare or Family Care: No Living arrangements: with family Gender identity (if verbalized by the patient): Female Sexual Orientation (if Verbalized by the Patient): Straight or Heterosexual Spiritual care concerns: No Meds Home Medications and Allergies Home Medications Medication Instructions Recorded Confirmed Type gabapentin 300 mg capsule 300 mg PO Q12H 06/14/21 06/11/24 History simvastatin 20 mg tablet 20 mg PO HS 06/14/21 06/11/24 History lisinopril 10 mg tablet 10 mg PO DAILY 09/15/23 06/11/24 History metformin 1,000 mg tablet 1,000 mg PO BID 09/15/23 06/11/24 History canagliflozin 300 mg tablet 300 mg PO DAILY #90 tabs 10/07/23 06/11/24 Rx (Invokana) sotalol 80 mg tablet See Rx Instructions .Route 10/07/23 06/11/24 Rx .COMPLEX #60 tabs insulin glargine 100 unit/mL 30 unit (0.3 mL) subcut QPM #10 mL 12/16/23 06/11/24 Rx subcutaneous solution (Lantus U-100 Insulin) fluoxetine 20 mg capsule 20 mg PO DAILY #90 caps 04/26/24 06/11/24 Rx insulin lispro 100 unit/mL 1 sliding scale dose subcut 04/26/24 06/11/24 Rx subcutaneous pen USEASDIRECTD #15 mL tirzepatide 7.5 mg/0.5 mL 7.5 mg (0.5 mL) subcut WEEKLY #2 mL 04/26/24 06/11/24 Rx subcutaneous pen injector (Mounjaro) apixaban 5 mg tablet (Eliquis) 5 mg PO Q12HR #60 tabs 06/07/24 06/11/24 Rx cephalexin 500 mg capsule 500 mg PO Q8H 7 days #21 caps 06/09/24 06/11/24 Rx ondansetron HCl 4 mg tablet 4 mg PO Q6H PRN nausea and 06/09/24 06/11/24 Rx vomiting #20 tabs Allergies Allergy/AdvReac Type Severity Reaction Status Date / Time clindamycin Allergy Unknown Hives / Verified 06/10/24 23:55 Red Face sulfamethoxazole Allergy Unknown Vomiting Verified 06/10/24 23:55 trimethoprim Allergy Unknown Vomiting Verified 06/10/24 23:55 celecoxib AdvReac Mild Unknown Verified 06/10/24 23:55 propoxyphene AdvReac Unknown Nausea and Verified 06/10/24 23:55 Vomiting hydrocodone [From Lortab] AdvReac Nausea and Verified 06/10/24 23:55 Vomiting Vital Signs Vital Signs - 24 hr 06/10/24 18:09 06/10/24 23:10 06/10/24 23:11 Temperature 97.5 F L Pulse Rate 100 105 H 104 H Respiratory Rate 20 16 19 Blood Pressure 132/75 110/63 Pulse Oximetry 100 92 92 Oxygen Delivery Room Air 06/10/24 23:12 06/10/24 23:15 06/10/24 23:16 Temperature Pulse Rate 103 H 103 H 103 H Respiratory Rate 19 20 10 L Blood Pressure 114/57 L Pulse Oximetry 92 92 90 Oxygen Delivery 06/10/24 23:30 06/10/24 23:45 06/11/24 00:17 Temperature Pulse Rate 104 H 100 104 H Respiratory Rate 19 12 17 Blood Pressure Pulse Oximetry 94 95 97 Oxygen Delivery 06/11/24 00:24 06/11/24 00:30 06/11/24 00:31 Temperature Pulse Rate 109 H 103 H 102 H Respiratory Rate 10 L 18 21 H Blood Pressure 130/76 114/64 Pulse Oximetry 100 92 92 Oxygen Delivery 06/11/24 00:45 06/11/24 01:25 06/11/24 01:30 Temperature Pulse Rate 101 H 91 Respiratory Rate 19 19 Blood Pressure 102/62 Pulse Oximetry 93 97 97 Oxygen Delivery 06/11/24 02:46 06/11/24 04:13 06/11/24 04:00 Temperature 98.3 F 98.1 F Pulse Rate 92 95 Respiratory Rate 16 20 Blood Pressure 103/56 L 128/67 Pulse Oximetry 95 97 Oxygen Delivery Room Air 06/11/24 06:00 Temperature 98.1 F Pulse Rate 95 Respiratory Rate 20 Blood Pressure 128/67 Pulse Oximetry 97 Oxygen Delivery Exam Const: General: no acute distress and uncomfortable Eyes: Sclera: sclerae normal Neck: Neck: supple Resp: Effort & Inspection: normal respiratory effort Auscultation: clear to auscultation bilaterally Cardio: Rate: regular rate Rhythm: regular rhythm GI: Auscultation: normal bowel sounds Other: Inspection: other (Left lower quadrant abdominal wall abscess) Other: 6 cm area of erythema and induration in left lower quadrant abdominal wall. 1.5 cm area of necrotic central portion. No active drainage. Skin: Other: Inspection: other (Left lower quadrant abdominal wall abscess) Other: 6 cm area of erythema and induration in left lower quadrant abdominal wall. 1.5 cm area of necrotic central portion. No active drainage. Reddened raised area an inch round in right axilla area, no drainage. Neuro: Speech: normal speech Psych: Mental Status: mental status grossly normal Affect: normal affect H&P: Results Labs Labs: Short CBC 06/10/24 06/11/24 Range/Units 23:03 08:13 WBC 18.7 H 16.7 H (4.5-10.0) K/mm3 Hgb 15.5 H D 14.1 (12.0-15.0) g/dL Hct 45.4 41.8 (37.0-47.0) % Plt Count 285 D 247 (150-375) k/mm3 BMP 06/10/24 06/11/24 06/11/24 23:03 00:14 08:13 Sodium 134 L 133 L Potassium 3.7 3.9 Chloride 95 L 98 Carbon Dioxide 28 25 BUN 25 H D 25 H Creatinine 0.60 L 0.50 L 0.50 L Glucose 179 H 229 H Calcium 9.9 9.2 Cardiac Enzymes 06/10/24 Range/Units 23:03 Troponin I < 0.012 (0.000-0.034) ng/mL Liver Function 06/10/24 06/11/24 Range/Units 23:03 08:13 Total Bilirubin 0.9 0.7 (0.2-1.3) mg/dL AST 17 14 (14-36) U/L ALT 9 8 (6-35) U/L Alkaline Phosphatase 94 88 (38-126) U/L Albumin 4.5 4.0 (3.5-5.1) g/dL Assessment and Plan Assessment and plan (1) Abscess of abdominal wall: Code(s): L02.211 - Cutaneous abscess of abdominal wall Status: Acute Assessment and Plan: * CT abdomen/pelvis with contrast showed: Left abdominal wall cellulitis with 2.6 x 1.5 cm mass that may be phlegmon or early abscess. * Seen by Surgery performed bedside I&D LLQ. Wound drainage sent for culture swab was used to obtain a culture and sensitivity. The wound was then packed with half-inch iodoform gauze. 4 x 4 gauze and tape were applied. * Vancomycin 1,500 mg IVPB q 12. * WBC:18.7>16.7 * Afebrile * Monitor site * Monitor labs (2) Hidradenitis suppurativa: Code(s): L73.2 - Hidradenitis suppurativa Status: Acute Assessment and Plan: * Seen by Surgery and performed a bedside I&D LLQ. Wound drainage sent for culture swab was used to obtain a culture and sensitivity. The wound was then packed with half-inch iodoform gauze. 4 x 4 gauze and tape were applied. * Vancomycin 1,500 mg IVPB q 12. * Monitor LLQ abdomen and right axilla. (3) DM2 (diabetes mellitus, type 2): Qualifiers: Diabetes mellitus complication status: with hyperglycemia Diabetes mellitus senior care insulin use: with senior care use Qualified Code(s): E11.65 - Type 2 diabetes mellitus with hyperglycemia; Z79.4 - title i coordinator (current) use of insulin Code(s): E11.9 - Type 2 diabetes mellitus without complications Status: Acute Assessment and Plan: * Reports last HgbA1C at doctors office a month ago was 7.2%. * Hypoglycemic protocol * Sliding scale insulin. (4) Abscess of axilla: Code(s): L02.419 - Cutaneous abscess of limb, unspecified Status: Acute Assessment and Plan: * Vancomycin 1,500 mg IVPB q 12. * monitor site Quality VTE Prophylaxis VTE prophylaxis: pharmacologic ordered Hospitalist MIPS Advance Care Plan I have confirmed that the patient's Advanced Care Plan is present, code status is documented, or surrogate decision maker is listed in patient medical record.: Yes Medication Reconciliation I have utilized all available resources to obtain, update and review the patients current medications (includes all prescriptions, OTC, herbals, cannabis, and nutritional supplements).: Yes
[2024-06-11] MEDS: SOTALOL HCL 80 MG TABLET BY MOUTH ×2 (10:32→20:59)
[2024-06-11] MEDS: GABAPENTIN 300 MG CAPSULE PO ×2 (10:32→20:59)
[2024-06-11] MEDS: FLUoxetine HCL 20 MG CAPSULE PO (10:32)
[2024-06-11] MEDS: lisinopriL 10 MG TABLET PO (10:32)
[2024-06-11] MEDS: LIDO 1%/EPINEPHRINE 1:100,000 20 ML VIAL 10 ML INFILTRATE (13:30)
--- NOTE | 2024-06-11 13:40 | PM.CNGS ---
Assessment and Plan Assessment and plan (1) Abscess of abdominal wall: Code(s): L02.211 - Cutaneous abscess of abdominal wall Status: Acute Assessment and Plan: I reviewed the CT and discussed the findings with the patient. She has evidence of an abscess developing along the left lower abdominal wall. She has been started on broad-spectrum IV antibiotics. Have recommended bedside incision and drainage of abdominal wall abscess with local anesthetic. Will proceed with incision and drainage today and obtain any cultures if there is any deeper fluid collections. Continue local wound care. (2) Hidradenitis suppurativa: Code(s): L73.2 - Hidradenitis suppurativa Status: Acute (3) DM2 (diabetes mellitus, type 2): Qualifiers: Diabetes mellitus jail insulin use: with terminal makeup operator use Diabetes mellitus complication status: with hyperglycemia Qualified Code(s): E11.65 - Type 2 diabetes mellitus with hyperglycemia; Z79.4 - terminal computer operator (current) use of insulin Code(s): E11.9 - Type 2 diabetes mellitus without complications Status: Acute (4) PAF (paroxysmal atrial fibrillation): Code(s): I48.0 - Paroxysmal atrial fibrillation Status: Acute History of Present Illness Consult details Consult date: 06/11/24 Reason for consult: other (abdominal wall abscess) Requesting physician: Rylan Wise MD Narrative: This is a 54-year-old woman who I am asked to see for an abdominal wall abscess. She presented to the emergency department overnight with worsening problems with a wound on her abdomen. She states this started about 3 days ago the history of hidradenitis and frequently gets these skin infections. She was placed on oral Keflex 2 days ago by her PCP the wound. She denies any she denies any significant drainage from the wound. She was admitted for further treatment and placed on broad-spectrum IV antibiotics. A CT of her abdomen was done in the emergency department and there did not appear to any deeper intra-abdominal or intramuscular involvement. Review of Systems Review of Systems: All systems reviewed & are unremarkable except as noted in HPI and below Constitutional: Constitutional: Denies fever(s) Eyes: Eyes: Denies change in vision ENT: Denies hearing loss, Denies neck pain and Denies sore throat Cardiovascular: Cardiovascular: Denies chest pain and Denies dyspnea Respiratory: Respiratory: Denies cough, Denies dyspnea and Denies wheezing Gastrointestinal: Gastrointestinal: Reports as per HPI Genitourinary: Genitourinary: Denies hematuria and Denies dysuria Musculoskeletal: Musculoskeletal: Denies arthralgias, Denies joint swelling and Denies neck pain Allergic/Immunologic: Allergic/Immunologic: Denies wheezing [facility] Past Medical History Medical History (Updated 06/11/24 @ 07:40 by Rylan Wise MD) Depression with anxiety Diabetes mellitus History of DVT (deep vein thrombosis) History of pulmonary embolism Hyperlipidemia Hypertension Surgical History Surgical History History of bilateral knee replacement History of cholecystectomy History of orthopedic surgery History of tonsillectomy Family History Family History Unknown Adopted Social History Social History Social History: The patient lives with her . The patient continues to smoke approximately 3-4 cigarettes a day. The patient does work at [employer]. Her is a durable power deputy prosecuting attorney for [employer]. Code status full code Smoking status: Current every day smoker Tobacco type: cigarettes Second hand tobacco smoke exposure: No Alcohol intake: current Drinks per week: 5 Substance use: never Substance use type: marijuana Do You Feel Safe in your Home?: Yes Lack of Transportation: YES Lack of Food: Never True Current Housing: I Have Housing Concerned About Future Housing: No Difficulty Paying Gas/Electric Bills: No Difficulty Paying for Meds: No Currently Unemployed: No Education: Bachelor's Degree Difficulty w/ Childcare or Family Care: No Living arrangements: with family Gender identity (if verbalized by the patient): Female Sexual Orientation (if Verbalized by the Patient): Straight or Heterosexual Spiritual care concerns: No Meds Home Medications and Allergies Home Medications Medication Instructions Recorded Confirmed Type gabapentin 300 mg capsule 300 mg PO Q12H 06/14/21 06/11/24 History simvastatin 20 mg tablet 20 mg PO HS 06/14/21 06/11/24 History lisinopril 10 mg tablet 10 mg PO DAILY 09/15/23 06/11/24 History metformin 1,000 mg tablet 1,000 mg PO BID 09/15/23 06/11/24 History canagliflozin 300 mg tablet 300 mg PO DAILY #90 tabs 10/07/23 06/11/24 Rx (Invokana) sotalol 80 mg tablet See Rx Instructions .Route 10/07/23 06/11/24 Rx .COMPLEX #60 tabs insulin glargine 100 unit/mL 30 unit (0.3 mL) subcut QPM #10 mL 12/16/23 06/11/24 Rx subcutaneous solution (Lantus U-100 Insulin) fluoxetine 20 mg capsule 20 mg PO DAILY #90 caps 04/26/24 06/11/24 Rx insulin lispro 100 unit/mL 1 sliding scale dose subcut 04/26/24 06/11/24 Rx subcutaneous pen USEASDIRECTD #15 mL tirzepatide 7.5 mg/0.5 mL 7.5 mg (0.5 mL) subcut WEEKLY #2 mL 04/26/24 06/11/24 Rx subcutaneous pen injector (Mounjaro) apixaban 5 mg tablet (Eliquis) 5 mg PO Q12HR #60 tabs 06/07/24 06/11/24 Rx cephalexin 500 mg capsule 500 mg PO Q8H 7 days #21 caps 06/09/24 06/11/24 Rx ondansetron HCl 4 mg tablet 4 mg PO Q6H PRN nausea and 06/09/24 06/11/24 Rx vomiting #20 tabs Allergies Allergy/AdvReac Type Severity Reaction Status Date / Time clindamycin Allergy Unknown Hives / Verified 06/10/24 23:55 Red Face sulfamethoxazole Allergy Unknown Vomiting Verified 06/10/24 23:55 trimethoprim Allergy Unknown Vomiting Verified 06/10/24 23:55 celecoxib AdvReac Mild Unknown Verified 06/10/24 23:55 propoxyphene AdvReac Unknown Nausea and Verified 06/10/24 23:55 Vomiting hydrocodone [From Lortab] AdvReac Nausea and Verified 06/10/24 23:55 Vomiting Vital Signs Vital Signs - 24 hr 06/10/24 18:09 06/10/24 23:10 06/10/24 23:11 Temperature 97.5 F L Pulse Rate 100 105 H 104 H Respiratory Rate 20 16 19 Blood Pressure 132/75 110/63 Pulse Oximetry 100 92 92 Oxygen Delivery Room Air 06/10/24 23:12 06/10/24 23:15 06/10/24 23:16 Temperature Pulse Rate 103 H 103 H 103 H Respiratory Rate 19 20 10 L Blood Pressure 114/57 L Pulse Oximetry 92 92 90 Oxygen Delivery 06/10/24 23:30 06/10/24 23:45 06/11/24 00:17 Temperature Pulse Rate 104 H 100 104 H Respiratory Rate 19 12 17 Blood Pressure Pulse Oximetry 94 95 97 Oxygen Delivery 06/11/24 00:24 06/11/24 00:30 06/11/24 00:31 Temperature Pulse Rate 109 H 103 H 102 H Respiratory Rate 10 L 18 21 H Blood Pressure 130/76 114/64 Pulse Oximetry 100 92 92 Oxygen Delivery 06/11/24 00:45 06/11/24 01:25 06/11/24 01:30 Temperature Pulse Rate 101 H 91 Respiratory Rate 19 19 Blood Pressure 102/62 Pulse Oximetry 93 97 97 Oxygen Delivery 06/11/24 02:46 06/11/24 04:13 06/11/24 04:00 Temperature 98.3 F 98.1 F Pulse Rate 92 95 Respiratory Rate 16 20 Blood Pressure 103/56 L 128/67 Pulse Oximetry 95 97 Oxygen Delivery Room Air 06/11/24 06:00 Temperature 98.1 F Pulse Rate 95 Respiratory Rate 20 Blood Pressure 128/67 Pulse Oximetry 97 Oxygen Delivery Exam Const: General: alert; No acute distress Orientation/consciousness: patient oriented x3 Limitations: no limitations HENMT: Head: normocephalic and atraumatic Ears: hearing grossly normal bilaterally Face/Nose/Sinus: Normal external nose present and Normal nares present Mouth: Yes Normal oral and palatal mucosa present and Yes moist mucous membranes Eyes: General: appearance normal, both eyes and all related structures Conjunctivae: conjunctivae normal Sclera: sclerae normal Pupils: Equal, round and reactive pupils present EOM: EOMs intact bilaterally Neck: Neck: normal visual inspection, full ROM, no lymphadenopathy, supple and no JVD Lymphatic: no lymphadenopathy noted Chest: Chest palpation & inspection: normal inspection of the chest Resp: Effort & Inspection: normal respiratory effort and able to speak in complete sentences Auscultation: clear to auscultation bilaterally Percussion: percussion normal Cardio: Jugular venous distension: no JVD Rate: regular rate Rhythm: regular rhythm Heart sounds: S1 normal heart sound present and S2 normal heart sound present Peripheral pulses: Peripheral pulses 2+ throughout GI: Inspection: other (Left lower quadrant abdominal wall abscess) Auscultation: normal bowel sounds Other: 6 cm area of erythema and induration in left lower quadrant abdominal wall. 1.5 cm area of necrotic central portion. No active drainage. : General: Yes no CVA tenderness Back/Spine/Pelvis: Back: no CVA tenderness Skin: General skin exam: normal color and dry skin Neuro: General: patient oriented x3, gait normal, moves all extremities, no focal motor deficits and CN's II-XI intact bilaterally Cranial nerves: Yes Equal, round and reactive pupils present Speech: normal speech Extrem: General: normal to inspection and capillary refill normal Results Labs 06/11/24 08:13 06/11/24 08:13 Labs: Abnormal lab results 06/10/24 06/11/24 06/11/24 Range/Units 23:03 00:14 03:58 WBC 18.7 H (4.5-10.0) K/mm3 RBC 5.41 H (4.2-5.4) M/mm3 Hgb 15.5 H D (12.0-15.0) g/dL Neut % (Auto) 75.9 H (45.5-73.1) % Lymph % (Auto) 14.5 L (18.3-44.2) % Owen % (Auto) (2.6-8.5) % Owen # (Auto) 1.5 H (0.1-0.6) K/mm3 Abs Immat Gran (auto) 0.09 H (0.00-0.031) K/mm3 Absolute Neuts (auto) 14.2 H (1.3-6.7) K/mm3 VBG pH 7.418 H* (7.300-7.400) VBG pCO2 34.9 L (42.0-48.0) mmHg VBG HCO3 22.0 L (24.0-30.0) mEq/l Sodium 134 L (137-145) mmol/L Chloride 95 L (98-107) mmol/L BUN 25 H D (7-17) mg/dL Creatinine 0.60 L 0.50 L (0.7-1.0) mg/dL Glucose 179 H (65-110) mg/dL POC Capillary Glucose 145 H (65-105) mg/dl C-Reactive Protein 13.5 H (<1.0) mg/dL Beta-Hydroxybutyrate/Acetoacetate 1.59 H (0.02-0.27) mmol/L 06/11/24 Range/Units 08:13 WBC 16.7 H (4.5-10.0) K/mm3 RBC (4.2-5.4) M/mm3 Hgb (12.0-15.0) g/dL Neut % (Auto) 74.7 H (45.5-73.1) % Lymph % (Auto) 13.9 L (18.3-44.2) % Owen % (Auto) 9.5 H (2.6-8.5) % Owen # (Auto) 1.6 H (0.1-0.6) K/mm3 Abs Immat Gran (auto) 0.07 H (0.00-0.031) K/mm3 Absolute Neuts (auto) 12.5 H (1.3-6.7) K/mm3 VBG pH (7.300-7.400) VBG pCO2 (42.0-48.0) mmHg VBG HCO3 (24.0-30.0) mEq/l Sodium 133 L (137-145) mmol/L Chloride (98-107) mmol/L BUN 25 H (7-17) mg/dL Creatinine 0.50 L (0.7-1.0) mg/dL Glucose 229 H (65-110) mg/dL POC Capillary Glucose (65-105) mg/dl C-Reactive Protein (<1.0) mg/dL Beta-Hydroxybutyrate/Acetoacetate (0.02-0.27) mmol/L Diabetes panel 06/10/24 06/11/24 06/11/24 Range/Units 23:03 00:14 08:13 Sodium 134 L 133 L (137-145) mmol/L Potassium 3.7 3.9 (3.4-5.0) mmol/L Chloride 95 L 98 (98-107) mmol/L Carbon Dioxide 28 25 (22-30) mmol/L BUN 25 H D 25 H (7-17) mg/dL Creatinine 0.60 L 0.50 L 0.50 L (0.7-1.0) mg/dL Glucose 179 H 229 H (65-110) mg/dL Calcium 9.9 9.2 (8.4-10.2) mg/dL AST 17 14 (14-36) U/L ALT 9 8 (6-35) U/L Alkaline Phosphatase 94 88 (38-126) U/L Total Protein 8.0 7.0 (6.3-8.2) g/dL Albumin 4.5 4.0 (3.5-5.1) g/dL Calcium panel 06/10/24 06/11/24 Range/Units 23:03 08:13 Calcium 9.9 9.2 (8.4-10.2) mg/dL Albumin 4.5 4.0 (3.5-5.1) g/dL Pituitary panel 06/10/24 06/11/24 06/11/24 Range/Units 23:03 00:14 08:13 Sodium 134 L 133 L (137-145) mmol/L Potassium 3.7 3.9 (3.4-5.0) mmol/L Chloride 95 L 98 (98-107) mmol/L Carbon Dioxide 28 25 (22-30) mmol/L BUN 25 H D 25 H (7-17) mg/dL Creatinine 0.60 L 0.50 L 0.50 L (0.7-1.0) mg/dL Glucose 179 H 229 H (65-110) mg/dL Calcium 9.9 9.2 (8.4-10.2) mg/dL Adrenal panel 06/10/24 06/11/24 06/11/24 Range/Units 23:03 00:14 08:13 Sodium 134 L 133 L (137-145) mmol/L Potassium 3.7 3.9 (3.4-5.0) mmol/L Chloride 95 L 98 (98-107) mmol/L Carbon Dioxide 28 25 (22-30) mmol/L BUN 25 H D 25 H (7-17) mg/dL Creatinine 0.60 L 0.50 L 0.50 L (0.7-1.0) mg/dL Glucose 179 H 229 H (65-110) mg/dL Calcium 9.9 9.2 (8.4-10.2) mg/dL Total Bilirubin 0.9 0.7 (0.2-1.3) mg/dL AST 17 14 (14-36) U/L ALT 9 8 (6-35) U/L Alkaline Phosphatase 94 88 (38-126) U/L Total Protein 8.0 7.0 (6.3-8.2) g/dL Albumin 4.5 4.0 (3.5-5.1) g/dL All other labs normal. Imaging Additional studies: ITS Impressions Abdomen/Pelvis CT 06/10/24 23:58 IMPRESSION: 1. Left abdominal wall cellulitis with 2.6 x 1.5 cm mass that may be phlegmon or early abscess.
[2024-06-11] MEDS: VANCOMYCIN 1,500 MG/NS 500 ML 1,500 MG/500 ML BAG 250 MG IVPB (13:45)
--- NOTE | 2024-06-11 14:10 | P.OP_ITS ---
Procedure Note - Detailed Date of Procedure 06/11/24 Pre-op Diagnosis Abdominal wall abscess Post-op Diagnosis Same Procedure Performed 1. Incision and drainage of abdominal wall abscess 2. Sharp excisional debridement 1.5 cm x 1.5 cm necrotic skin of abdominal wall Surgeon Edgard Leal, DO Anesthesia Local (1% lidocaine with epinephrine) Indications This is a 54-year-old woman who presented with an abdominal wall abscess. This had progressed over the past several days and she now has surface to the skin in the center. Discussions were made with the patient about treatment options and decision was made to proceed with bedside incision and drainage. Findings Incision and drainage and excisional debridement was performed. An 11 blade scalpel was used to sharply excise the necrotic skin in the center of the abscess. The area measured 1.5 cm x 1.5 cm and only involved the skin. After excising the necrotic skin, the abscess was then entered and drained. A culture swab was used to obtain a culture for aerobic and anaerobic culture and sensitivity. The wound was then packed with half-inch iodoform gauze. Description of Procedure Procedure as well as risks, benefits, and alternatives were discussed with the patient. Written consent was obtained and placed in chart prior to procedure. Patient was placed supine in her hospital bed. The area was prepped and draped in sterile fashion using Betadine prep. 1% lidocaine with epinephrine was then infiltrated locally around the left lower quadrant abdominal wall abscess. An 11 blade scalpel was then used to excise the necrotic skin at the center measuring 1.5 cm x 1.5 cm. The abscess cavity was then entered using an 11 blade scalpel and about 3-5 mL purulence fluid was drained. A culture swab was used to obtain a culture and sensitivity. The wound was then packed with half- inch iodoform gauze. 4 x 4 gauze and tape were applied. Estimated Blood Loss 5 Packing Yes (Half-inch iodoform gauze) Complications No immediate complications Condition Stable Disposition No change [facility] Billing Surgery - Charge Forward: Surgery Billing
[2024-06-11 16:52] LABS: Add Urine Microscopic? NO; Appearance Urine Clear (Clear); Bilirubin Urine Negative (Negative); Blood Urine Negative (Negative); Color Urine Yellow (Yellow); Glucose Urine UA 3+ mg/dL (Negative); Ketones Urine 3+ mg/dL (Negative); Leukocyte Esterase Ur Negative LEU/UL (Negative); Nitrate Urine Negative (Negative); Protein Urine Negative (Negative); Specific Grav Ur 1.039 (1.001-1.035); Urobilinogen Urine 0.2 mg/dL (<2.0); pH Urine 5.5 (5.0-9.0)
[2024-06-11] MEDS: INSULIN GLARGINE (*BKC) 100 UNITS/ML 30 UNITS SUB-Q (17:27)
[2024-06-11] MEDS: INSULIN ASPART (*BKC) 100 UNITS/ML SUB-Q ×2 (17:28→21:05)
[2024-06-11 17:32] LABS: Glucose Point of Care 289 mg/dl (65-105)
[2024-06-11] MEDS: SIMVASTATIN 20 MG TABLET PO (20:59)
[2024-06-11 21:34] LABS: Glucose Point of Care 271 mg/dl (65-105)
[2024-06-12] VITALS (8 sets, daily range): BP systolic 105–124; BP diastolic 60–72; PULSE 80–90; RESP 16–20; TEMP 36.3–37.1; O2SAT 94–99
[2024-06-12] MEDS: VANCOMYCIN 1,500 MG/NS 500 ML 1,500 MG/500 ML BAG 250 MG IVPB ×2 (06:09→18:34)
[2024-06-12 07:00] LABS: Basophils Percent Auto 0.3 % (0.2-1.2); Eosinophils Absolute Auto 0.2 K/mm3 (0-0.3); Eosinophils Percent Auto 1.6 % (0-4.4); Hemoglobin 13.2 g/dL (12.0-15.0); Immature Granulocyte Absolute 0.07 K/mm3 (0.00-0.031); Immature Granulocyte Percent A 0.6 % (0-0.5); Lymphocytes Percent Auto 20.3 % (18.3-44.2); Mean Corpuscular Hemoglobin 28.1 pg (26-34); Mean Corpuscular Volume 85.1 fl (80-100); Mean Platelet Volume 10.6 fl (7.4-10.4); Monocytes Absolute Auto 1.2 K/mm3 (0.1-0.6); Monocytes Percent Auto 9.5 % (2.6-8.5); Neutrophils Absolute Auto 8.4 K/mm3 (1.3-6.7); Neutrophils Percent Auto 67.7 % (45.5-73.1); Platelet Count Result 242 k/mm3 (150-375); Red Cell Distribution Width 12.8 % (11.5-14.5); White Blood Count 12.3 K/mm3 (4.5-10.0)
[2024-06-12 07:10] LABS: Alanine Aminotransferase 7 U/L (6-35); Albumin Level 3.7 g/dL (3.5-5.1); Alkaline Phosphatase 86 U/L (38-126); Anion Gap 8 mmol/L (4-12); Aspartate Amino Transferase 12 U/L (14-36); Bilirubin,Total 0.8 mg/dL (0.2-1.3); Blood Urea Nitrogen 16 mg/dL (7-17); Calcium 8.8 mg/dL (8.4-10.2); Carbon Dioxide 28 mmol/L (22-30); Chloride 99 mmol/L (98-107); Estimated CRCL calculation 185 ml/min; Estimated Glomerular Filt Rate > 60; Glucose 163 mg/dL (65-110); Potassium 3.8 mmol/L (3.4-5.0); Sodium 135 mmol/L (137-145)
[2024-06-12 07:44] LABS: Glucose Point of Care 172 mg/dl (65-105)
[2024-06-12] MEDS: lisinopriL 10 MG TABLET PO (08:42)
[2024-06-12] MEDS: SOTALOL HCL 80 MG TABLET BY MOUTH ×2 (08:42→20:34)
[2024-06-12] MEDS: GABAPENTIN 300 MG CAPSULE PO ×2 (08:42→20:34)
[2024-06-12] MEDS: FLUoxetine HCL 20 MG CAPSULE PO (08:42)
[2024-06-12] MEDS: ENOXAPARIN 40 MG/0.4 ML SYRINGE SUB-Q (08:43)
--- NOTE | 2024-06-12 10:46 | PM.IMPN ---
Progress Note: A&P Assessment and Plan (1) Abscess of abdominal wall: Code(s): L02.211 - Cutaneous abscess of abdominal wall Status: Acute Assessment and Plan: CT abdomen/pelvis with contrast showed: Left abdominal wall cellulitis with 2.6 x 1.5 cm mass that may be phlegmon or early abscess. Seen by Surgery performed bedside I&D LLQ on 06/11/24. Wound drainage sent for culture swab was used to obtain a culture and sensitivity, preliminary gram + cocci in clusters. The wound was then packed with half-inch iodoform gauze. 4 x 4 gauze and tape were applied. Vancomycin 1,500 mg IVPB q 12. WBC:18.7>16.7>12.3 Afebrile Monitor drop press hand labs (2) Hidradenitis suppurativa: Code(s): L73.2 - Hidradenitis suppurativa Status: Acute Assessment and Plan: Seen by Surgery and performed a bedside I&D LLQ. Wound drainage sent for culture swab was used to obtain a culture and sensitivity. The wound was then packed with half-inch iodoform gauze. 4 x 4 gauze and tape were applied. Vancomycin 1,500 mg IVPB q 12. Monitor LLQ abdomen and right axilla. (3) DM2 (diabetes mellitus, type 2): Qualifiers: Diabetes mellitus terminal makeup operator insulin use: with terminal makeup operator use Diabetes mellitus complication status: with hyperglycemia Qualified Code(s): E11.65 - Type 2 diabetes mellitus with hyperglycemia; Z79.4 - terminal operations supervisor (current) use of insulin Code(s): E11.9 - Type 2 diabetes mellitus without complications Status: Acute Assessment and Plan: Reports last HgbA1C at doctors office a month ago was 7.2%. Hypoglycemic protocol Sliding scale insulin. (4) PAF (paroxysmal atrial fibrillation): Code(s): I48.0 - Paroxysmal atrial fibrillation Status: Acute Assessment and Plan: Restart Eliquis 5 mg PO q 12. Sotalol 80 mg PO q 12. (5) Abscess of axilla: Code(s): L02.419 - Cutaneous abscess of limb, unspecified Status: Acute Assessment and Plan: Vancomycin 1,500 mg IVPB q 12. monitor site Subjective Date/time seen: 06/12/24 10:46 Interval history: Patient reports pain in left side is a 4 , constant, and burning. Patient denies shortness of breath, headache, dizziness, nausea, or vomiting. Patient sitting up in chair crocheting. Review of Systems Review of Systems: All systems reviewed & are unremarkable except as noted in HPI and below Exam Const: General: no acute distress and uncomfortable Eyes: Sclera: sclerae normal Resp: Effort & Inspection: normal respiratory effort Auscultation: clear to auscultation bilaterally Cardio: Rate: regular rate Rhythm: regular rhythm GI: Auscultation: normal bowel sounds Other: Inspection: other (Left lower quadrant abdominal wall abscess) Scant purulent drainage and residual erythema and induration. Slightly improved from yesterday. Skin: Other: Inspection: other (Left lower quadrant abdominal wall abscess) Scant purulent drainage and residual erythema and induration. Slightly improved from yesterday. Reddened raised area an inch round in right axilla area, patient pushed runny clear to bloody drainage. Neuro: Speech: normal speech Psych: Mental Status: mental status grossly normal Affect: normal affect Objective Data Vital Signs Vital Signs: Vital Signs - 24 hr 06/11/24 14:00 06/11/24 20:00 06/11/24 20:00 Temperature 97.0 F L 98.1 F Pulse Rate 92 98 Respiratory Rate 20 16 Blood Pressure 101/62 112/59 L Pulse Oximetry 94 95 Oxygen Delivery Room Air Fraction of Inspired Oxygen 06/12/24 06:00 06/12/24 07:49 06/12/24 08:11 Temperature 97.4 F L 97.7 F Pulse Rate 90 85 Respiratory Rate 16 18 Blood Pressure 118/63 105/63 Pulse Oximetry 97 94 95 Oxygen Delivery Room Air Fraction of Inspired Oxygen 21 Intake/Output Intake/Output: Intake & Output 06/09/24 06/10/24 06/11/24 06/12/24 23:59 23:59 23:59 23:59 Intake Total 1470 830 Output Total 500 Balance 970 830 Meds/Results Medications: Active Medications Generic Name Dose Route Start Last Admin Trade Name Freq PRN Reason Stop Dose Admin Acetaminophen 650 mg 06/11/24 01:25 Acetaminophen 325 Mg Tablet PO Q4H PRN Mild Pain (1-3) or Fever Dextrose 12.5 gm 06/11/24 08:56 Dextrose 50% 25 Gm/50 Ml Syringe IV PUSH PRN PRN Hypoglycemia Protocol Docusate Sodium 100 mg 06/11/24 09:02 Docusate Sodium 100 Mg Capsule PO Q12H PRN Constipation Enoxaparin Sodium 40 mg 06/11/24 09:00 06/12/24 08:43 Enoxaparin 40 Mg/0.4 Ml Syringe SUB-Q 40 mg DAILY SYLVIE Administration Fluoxetine HCl 20 mg 06/11/24 09:00 06/12/24 08:42 Fluoxetine Hcl 20 Mg Capsule PO 20 mg DAILY SYLVIE Administration Gabapentin 300 mg 06/11/24 09:00 06/12/24 08:42 Gabapentin 300 Mg Capsule PO 300 mg Q12HR SYLVIE Administration Glucagon 1 mg 06/11/24 08:56 Glucagon For Inj 1 Mg Vial IM PRN PRN Hypoglycemia Protocol Glucose 15 gm 06/11/24 08:56 Glucose Oral Gel 15 Gm Of Glucse In 37.5 Gm Tube PO PRN PRN Hypoglycemia Protocol Dextrose 1,000 mls @ 100 mls/hr 06/11/24 08:56 Dextrose 5% 1,000 Ml IVPB PRN PRN Hypoglycemia Protocol Vancomycin HCl 1,500 mg in 500 mls @ 250 mls/hr 06/12/24 06:00 06/12/24 06:09 Vancomycin 1,500 Mg/Ns 500 Ml IVPB 250 mls/hr Q12H SYLVIE Administration Insulin Aspart 4 - 8 units 06/11/24 12:00 06/12/24 08:42 Insulin Aspart (*Bkc) 100 Units/Ml SUB-Q Not Given TIDWM [facility] Protocol Insulin Aspart 2 - 4 units 06/11/24 21:00 06/11/24 21:05 Insulin Aspart (*Bkc) 100 Units/Ml SUB-Q 2 units HS SYLVIE Administration Protocol Insulin Glargine 30 units 06/11/24 18:00 06/11/24 17:27 Insulin Glargine (*Bkc) 100 Units/Ml SUB-Q 30 units QPM SYLVIE Administration Lisinopril 10 mg 06/11/24 09:00 06/12/24 08:42 Lisinopril 10 Mg Tablet PO 10 mg DAILY SYLVIE Administration Morphine Sulfate 4 mg 06/11/24 13:02 06/11/24 20:59 Morphine Sulfate (*Crx) 4 Mg/Ml Inj IV PUSH 4 mg Q2H PRN Administration Pain Rated 7-10 Ondansetron HCl 4 mg 06/11/24 01:25 Ondansetron Inj 4 Mg/2 Ml Vial IV PUSH Q4H PRN Nausea Ondansetron HCl 4 mg 06/11/24 08:49 Ondansetron Hcl Odt 4 Mg Tablet PO Q6H PRN nausea and vomiting Simvastatin 20 mg 06/11/24 21:00 06/11/24 20:59 Simvastatin 20 Mg Tablet PO 20 mg HS SYLVIE Administration Sotalol HCl 80 mg 06/11/24 09:00 06/12/24 08:42 Sotalol Hcl 80 Mg Tablet BY MOUTH 80 mg Q12HR SYLVIE Administration Radiology Results: ITS Impressions Abdomen/Pelvis CT 06/10/24 23:58 IMPRESSION: 1. Left abdominal wall cellulitis with 2.6 x 1.5 cm mass that may be phlegmon or early abscess. Labs Labs: Laboratory Results - last 24 hr 06/10/24 06/11/24 06/11/24 18:53 17:27 20:36 WBC RBC Hgb Hct MCV MCH MCHC RDW Plt Count MPV Immature Gran % (Auto) Neut % (Auto) Lymph % (Auto) [place] % (Auto) Eos % (Auto) Baso % (Auto) Lymph # (Auto) [place] # (Auto) Eos # (Auto) Baso # (Auto) Abs Immat Gran (auto) Absolute Neuts (auto) Absolute Nucleated RBC Nucleated RBC % Sodium Potassium Chloride Carbon Dioxide Anion Gap BUN Creatinine Estim Creat Clear Calc Estimated GFR Glucose POC Capillary Glucose 289 H 271 H Calcium Total Bilirubin AST ALT Alkaline Phosphatase Total Protein Albumin Urine Color Yellow Urine Appearance Clear Urine pH 5.5 Ur Specific [place] 1.039 H Urine Protein Negative Urine Glucose (UA) 3+ H Urine Ketones 3+ H Ur Blood (Man) Negative Urine Nitrate Negative Urine Bilirubin Negative Urine Urobilinogen 0.2 Leukocyte Esterase Rfl Negative 06/12/24 06/12/24 06:29 07:24 WBC 12.3 H RBC 4.70 Hgb 13.2 Hct 40.0 MCV 85.1 MCH 28.1 MCHC 33.0 RDW 12.8 Plt Count 242 MPV 10.6 H Immature Gran % (Auto) 0.6 H Neut % (Auto) 67.7 Lymph % (Auto) 20.3 [place] % (Auto) 9.5 H Eos % (Auto) 1.6 Baso % (Auto) 0.3 Lymph # (Auto) 2.50 [place] # (Auto) 1.2 H Eos # (Auto) 0.2 Baso # (Auto) 0.0 Abs Immat Gran (auto) 0.07 H Absolute Neuts (auto) 8.4 H Absolute Nucleated RBC 0.000 Nucleated RBC % 0.0 Sodium 135 L Potassium 3.8 Chloride 99 Carbon Dioxide 28 Anion Gap 8 BUN 16 Creatinine 0.30 L Estim Creat Clear Calc 185 Estimated GFR > 60 Glucose 163 H POC Capillary Glucose 172 H Calcium 8.8 Total Bilirubin 0.8 AST 12 L ALT 7 Alkaline Phosphatase 86 Total Protein 7.0 Albumin 3.7 Urine Color Urine Appearance Urine pH Ur Specific [place] Urine Protein Urine Glucose (UA) Urine Ketones Ur Blood (Man) Urine Nitrate Urine Bilirubin Urine Urobilinogen Leukocyte Esterase Rfl Quality VTE Prophylaxis VTE prophylaxis: pharmacologic ordered
[2024-06-12] MEDS: polyethylene glycoL 3350 17 GM POWD.PACK PO (10:57)
[2024-06-12 11:27] LABS: Glucose Point of Care 225 mg/dl (65-105)
[2024-06-12] MEDS: INSULIN ASPART (*BKC) 100 UNITS/ML SUB-Q ×3 (11:31→20:39)
--- NOTE | 2024-06-12 13:11 | P.PNGS_ITS ---
Progress Note: A&P Assessment and Plan (1) Abscess of abdominal wall: Code(s): L02.211 - Cutaneous abscess of abdominal wall Status: Acute Assessment and Plan: * Continue broad spectrum IV antibiotics. Cultures showing gram + cocci. * Daily packing changes with iodoform gauze. * OK to discharge once proper antibiotic determined. (2) Hidradenitis suppurativa: Code(s): L73.2 - Hidradenitis suppurativa Status: Acute (3) DM2 (diabetes mellitus, type 2): Qualifiers: Diabetes mellitus custodial insulin use: with ad terminal makeup operator use Diabetes mellitus complication status: with hyperglycemia Qualified Code(s): E11.65 - Type 2 diabetes mellitus with hyperglycemia; Z79.4 - intermediate designer (current) use of insulin Code(s): E11.9 - Type 2 diabetes mellitus without complications Status: Acute (4) PAF (paroxysmal atrial fibrillation): Code(s): I48.0 - Paroxysmal atrial fibrillation Status: Acute Subjective Subjective Date/Time Seen: 06/12/24 13:11 Interval history: Pain controlled. No fevers. Exam GI: Other: Abdominal dressing removed to inspect wound. Scant purulent drainage and residual erythema and induration. Slightly improved from yesterday. Objective Data Vital Signs Vital Signs: Vital Signs - 24 hr 06/11/24 14:00 06/11/24 20:00 06/11/24 20:00 Temperature 97.0 F L 98.1 F Pulse Rate 92 98 Respiratory Rate 20 16 Blood Pressure 101/62 112/59 L Pulse Oximetry 94 95 Oxygen Delivery Room Air Fraction of Inspired Oxygen 06/12/24 06:00 06/12/24 07:49 06/12/24 08:11 Temperature 97.4 F L 97.7 F Pulse Rate 90 85 Respiratory Rate 16 18 Blood Pressure 118/63 105/63 Pulse Oximetry 97 94 95 Oxygen Delivery Room Air Fraction of Inspired Oxygen 21 Intake/Output Intake/Output: Intake & Output 06/09/24 06/10/24 06/11/24 06/12/24 23:59 23:59 23:59 23:59 Intake Total 1470 1304 Output Total 500 Balance 970 1304 Meds/Results Medications: Active Medications Generic Name Dose Route Start Last Admin Trade Name Freq PRN Reason Stop Dose Admin Acetaminophen 650 mg 06/11/24 01:25 Acetaminophen 325 Mg Tablet PO Q4H PRN Mild Pain (1-3) or Fever Dextrose 12.5 gm 06/11/24 08:56 Dextrose 50% 25 Gm/50 Ml Syringe IV PUSH PRN PRN Hypoglycemia Protocol Docusate Sodium 100 mg 06/11/24 09:02 Docusate Sodium 100 Mg Capsule PO Q12H PRN Constipation Enoxaparin Sodium 40 mg 06/11/24 09:00 06/12/24 08:43 Enoxaparin 40 Mg/0.4 Ml Syringe SUB-Q 40 mg DAILY SYLVIE Administration Fluoxetine HCl 20 mg 06/11/24 09:00 06/12/24 08:42 Fluoxetine Hcl 20 Mg Capsule PO 20 mg DAILY SYLVIE Administration Gabapentin 300 mg 06/11/24 09:00 06/12/24 08:42 Gabapentin 300 Mg Capsule PO 300 mg Q12HR SYLVIE Administration Glucagon 1 mg 06/11/24 08:56 Glucagon For Inj 1 Mg Vial IM PRN PRN Hypoglycemia Protocol Glucose 15 gm 06/11/24 08:56 Glucose Oral Gel 15 Gm Of Glucse In 37.5 Gm Tube PO PRN PRN Hypoglycemia Protocol Dextrose 1,000 mls @ 100 mls/hr 06/11/24 08:56 Dextrose 5% 1,000 Ml IVPB PRN PRN Hypoglycemia Protocol Vancomycin HCl 1,500 mg in 500 mls @ 250 mls/hr 06/12/24 06:00 06/12/24 06:09 Vancomycin 1,500 Mg/Ns 500 Ml IVPB 250 mls/hr Q12H SYLVIE Administration Insulin Aspart 4 - 8 units 06/11/24 12:00 06/12/24 11:31 Insulin Aspart (*Bkc) 100 Units/Ml SUB-Q 4 units TIDWM SYLVIE Administration Protocol Insulin Aspart 2 - 4 units 06/11/24 21:00 06/11/24 21:05 Insulin Aspart (*Bkc) 100 Units/Ml SUB-Q 2 units HS SYLVIE Administration Protocol Insulin Glargine 30 units 06/11/24 18:00 06/11/24 17:27 Insulin Glargine (*Bkc) 100 Units/Ml SUB-Q 30 units QPM SYLVIE Administration Lisinopril 10 mg 06/11/24 09:00 06/12/24 08:42 Lisinopril 10 Mg Tablet PO 10 mg DAILY SYLVIE Administration Morphine Sulfate 4 mg 06/11/24 13:02 06/11/24 20:59 Morphine Sulfate (*Crx) 4 Mg/Ml Inj IV PUSH 4 mg Q2H PRN Administration Pain Rated 7-10 Ondansetron HCl 4 mg 06/11/24 01:25 Ondansetron Inj 4 Mg/2 Ml Vial IV PUSH Q4H PRN Nausea Ondansetron HCl 4 mg 06/11/24 08:49 Ondansetron Hcl Odt 4 Mg Tablet PO Q6H PRN nausea and vomiting Polyethylene Glycol 17 gm 06/12/24 10:50 06/12/24 10:57 Polyethylene Glycol 3350 17 Gm Powd.Pack PO 17 gm QAM SYLVIE Administration Simvastatin 20 mg 06/11/24 21:00 06/11/24 20:59 Simvastatin 20 Mg Tablet PO 20 mg HS SYLVIE Administration Sotalol HCl 80 mg 06/11/24 09:00 06/12/24 08:42 Sotalol Hcl 80 Mg Tablet BY MOUTH 80 mg Q12HR SYLVIE Administration Radiology Results: ITS Impressions Abdomen/Pelvis CT 06/10/24 23:58 IMPRESSION: 1. Left abdominal wall cellulitis with 2.6 x 1.5 cm mass that may be phlegmon or early abscess. Labs Labs: Laboratory Results - last 24 hr 06/10/24 06/11/24 06/11/24 18:53 17:27 20:36 WBC RBC Hgb Hct MCV MCH MCHC RDW Plt Count MPV Immature Gran % (Auto) Neut % (Auto) Lymph % (Auto) [place] % (Auto) Eos % (Auto) Baso % (Auto) Lymph # (Auto) [place] # (Auto) Eos # (Auto) Baso # (Auto) Abs Immat Gran (auto) Absolute Neuts (auto) Absolute Nucleated RBC Nucleated RBC % Sodium Potassium Chloride Carbon Dioxide Anion Gap BUN Creatinine Estim Creat Clear Calc Estimated GFR Glucose POC Capillary Glucose 289 H 271 H Calcium Total Bilirubin AST ALT Alkaline Phosphatase Total Protein Albumin Urine Color Yellow Urine Appearance Clear Urine pH 5.5 Ur Specific [place] 1.039 H Urine Protein Negative Urine Glucose (UA) 3+ H Urine Ketones 3+ H Ur Blood (Man) Negative Urine Nitrate Negative Urine Bilirubin Negative Urine Urobilinogen 0.2 Leukocyte Esterase Rfl Negative 06/12/24 06/12/24 06/12/24 06:29 07:24 11:19 WBC 12.3 H RBC 4.70 Hgb 13.2 Hct 40.0 MCV 85.1 MCH 28.1 MCHC 33.0 RDW 12.8 Plt Count 242 MPV 10.6 H Immature Gran % (Auto) 0.6 H Neut % (Auto) 67.7 Lymph % (Auto) 20.3 [place] % (Auto) 9.5 H Eos % (Auto) 1.6 Baso % (Auto) 0.3 Lymph # (Auto) 2.50 [place] # (Auto) 1.2 H Eos # (Auto) 0.2 Baso # (Auto) 0.0 Abs Immat Gran (auto) 0.07 H Absolute Neuts (auto) 8.4 H Absolute Nucleated RBC 0.000 Nucleated RBC % 0.0 Sodium 135 L Potassium 3.8 Chloride 99 Carbon Dioxide 28 Anion Gap 8 BUN 16 Creatinine 0.30 L Estim Creat Clear Calc 185 Estimated GFR > 60 Glucose 163 H POC Capillary Glucose 172 H 225 H Calcium 8.8 Total Bilirubin 0.8 AST 12 L ALT 7 Alkaline Phosphatase 86 Total Protein 7.0 Albumin 3.7 Urine Color Urine Appearance Urine pH Ur Specific [place] Urine Protein Urine Glucose (UA) Urine Ketones Ur Blood (Man) Urine Nitrate Urine Bilirubin Urine Urobilinogen Leukocyte Esterase Rfl
[2024-06-12 16:33] LABS: Glucose Point of Care 243 mg/dl (65-105)
[2024-06-12] MEDS: INSULIN GLARGINE (*BKC) 100 UNITS/ML 30 UNITS SUB-Q (17:00)
[2024-06-12] MEDS: SIMVASTATIN 20 MG TABLET PO (20:34)
[2024-06-12] MEDS: APIXABAN 5 MG TABLET PO (20:34)
[2024-06-12] MEDS: MORPHINE SULFATE (*CRX) 4 MG/ML INJ IV PUSH (20:40)
[2024-06-12 20:59] LABS: Glucose Point of Care 241 mg/dl (65-105)
[2024-06-13 06:11] LABS: Basophils Percent Auto 0.5 % (0.2-1.2); Eosinophils Absolute Auto 0.2 K/mm3 (0-0.3); Eosinophils Percent Auto 2.4 % (0-4.4); Hematocrit 37.8 % (37.0-47.0); Hemoglobin 12.1 g/dL (12.0-15.0); Immature Granulocyte Absolute 0.03 K/mm3 (0.00-0.031); Immature Granulocyte Percent A 0.5 % (0-0.5); Lymphocytes Absolute Auto 2.29 K/mm3 (0.9-3.2); Lymphocytes Percent Auto 34.5 % (18.3-44.2); Mean Corpuscular Hemoglobin 27.4 pg (26-34); Mean Corpuscular Volume 85.7 fl (80-100); Mean Platelet Volume 10.2 fl (7.4-10.4); Monocytes Absolute Auto 0.9 K/mm3 (0.1-0.6); Monocytes Percent Auto 13.3 % (2.6-8.5); Neutrophils Absolute Auto 3.3 K/mm3 (1.3-6.7); Neutrophils Percent Auto 48.8 % (45.5-73.1); Platelet Count Result 236 k/mm3 (150-375); Red Blood Count 4.41 M/mm3 (4.2-5.4); Red Cell Distribution Width 12.6 % (11.5-14.5); White Blood Count 6.6 K/mm3 (4.5-10.0)
[2024-06-13 06:30] LABS: Vancomycin Trough 8.9 ug/mL (10.0-20.0)
[2024-06-13 06:32] VITALS: BP 101/61; PULSE 80; RESP 18; TEMP 36.4; O2SAT 98
[2024-06-13 06:34] LABS: Alanine Aminotransferase 7 U/L (6-35); Albumin Level 3.2 g/dL (3.5-5.1); Alkaline Phosphatase 65 U/L (38-126); Anion Gap 6 mmol/L (4-12); Aspartate Amino Transferase 14 U/L (14-36); Bilirubin,Total 0.6 mg/dL (0.2-1.3); Blood Urea Nitrogen 13 mg/dL (7-17); Calcium 8.4 mg/dL (8.4-10.2); Carbon Dioxide 30 mmol/L (22-30); Chloride 101 mmol/L (98-107); Estimated CRCL calculation 185 ml/min; Estimated Glomerular Filt Rate > 60; Glucose 161 mg/dL (65-110); Potassium 3.4 mmol/L (3.4-5.0); Sodium 137 mmol/L (137-145)
[2024-06-13 07:38] LABS: Glucose Point of Care 149 mg/dl (65-105)
[2024-06-13] MEDS: lisinopriL 10 MG TABLET PO (08:32)
[2024-06-13] MEDS: FLUoxetine HCL 20 MG CAPSULE PO (08:32)
[2024-06-13] MEDS: GABAPENTIN 300 MG CAPSULE PO (08:32)
[2024-06-13] MEDS: SOTALOL HCL 80 MG TABLET BY MOUTH (08:32)
[2024-06-13] MEDS: BISACODYL 10 MG SUPPOSITORY RECTAL (08:32)
[2024-06-13] MEDS: VANCOMYCIN 1,500 MG/NS 500 ML 1,500 MG/500 ML BAG 250 MG IVPB (08:32)
[2024-06-13] MEDS: polyethylene glycoL 3350 17 GM POWD.PACK PO (08:32)
[2024-06-13] MEDS: APIXABAN 5 MG TABLET PO (08:32)
--- NOTE | 2024-06-13 11:25 | PM.DS ---
DS: Admitting Diagnosis Discharge Date 06/13/2024 Admitting Diagnosis Left abdominal abscess DS: Discharge Diagnosis Discharge Diagnosis (1) Abscess of abdominal wall: Code(s): L02.211 - Cutaneous abscess of abdominal wall Status: Acute (2) Hidradenitis suppurativa: Code(s): L73.2 - Hidradenitis suppurativa Status: Acute (3) DM2 (diabetes mellitus, type 2): Qualifiers: Diabetes mellitus complication status: with hyperglycemia Diabetes mellitus snf insulin use: with snf use Qualified Code(s): E11.65 - Type 2 diabetes mellitus with hyperglycemia; Z79.4 - terminal operations manager (current) use of insulin Code(s): E11.9 - Type 2 diabetes mellitus without complications Status: Acute (4) PAF (paroxysmal atrial fibrillation): Code(s): I48.0 - Paroxysmal atrial fibrillation Status: Acute (5) Abscess of axilla: Code(s): L02.419 - Cutaneous abscess of limb, unspecified Status: Acute DS: Summary Hospital Course Hospital Course: CT abdomen/pelvis with contrast showed: Left abdominal wall cellulitis with 2.6 x 1.5 cm mass that may be phlegmon or early abscess. Seen by Surgery performed bedside I&D LLQ on 06/11/24. Wound drainage sent for culture swab was used to obtain a culture and sensitivity, preliminary grew staphylococcus lugdunesis. The wound was then packed with half-inch iodoform gauze. 4 x 4 gauze and tape were applied. Vancomycin 1,500 mg IVPB q 12. Transitioned to oral Augmentin 875-125 mg 1 tab PO q 12 for 7 days and Doxycycline hyclate 100 mg PO q 12 for 7 days. WBC:18.7>16.7>12.3>6.6 Blood cultures no growth to date. Surgery to see in 2 weeks and wound care information included in discharge. Status at Discharge Functional status at discharge: independent ambulation Overall status at discharge: patient is progressing back to baseline Time Spent with Patient Time attestation: Total time spent providing and/or coordinating discharge services: Time spent: Greater than 30 minutes Exam Const: General: comfortable and no acute distress Eyes: Sclera: sclerae normal Resp: Effort & Inspection: normal respiratory effort Auscultation: clear to auscultation bilaterally Cardio: Rate: regular rate Rhythm: regular rhythm GI: Auscultation: normal bowel sounds Other: Inspection: other (Left lower quadrant abdominal wall abscess) Scant purulent drainage and residual erythema fading. Slightly improved from yesterday. Skin: Other: Inspection: other (Left lower quadrant abdominal wall abscess) Scant purulent drainage and residual erythema fading. Slightly improved from yesterday. Reddened raised area an inch round in right axilla area. Neuro: General: gait normal Extrem: General: normal to inspection Psych: Mental Status: mental status grossly normal Affect: normal affect DS: Data Data Completed and Pending Labs on day of discharge: Labs from last 24 hours 06/13/24 06/13/24 06/12/24 07:24 05:56 20:33 WBC 6.6 RBC 4.41 Hgb 12.1 Hct 37.8 MCV 85.7 MCH 27.4 MCHC 32.0 RDW 12.6 Plt Count 236 MPV 10.2 Immature Gran % (Auto) 0.5 Neut % (Auto) 48.8 Lymph % (Auto) 34.5 [place] % (Auto) 13.3 H Eos % (Auto) 2.4 Baso % (Auto) 0.5 Lymph # (Auto) 2.29 [place] # (Auto) 0.9 H Eos # (Auto) 0.2 Baso # (Auto) 0.0 Abs Immat Gran (auto) 0.03 Absolute Neuts (auto) 3.3 Absolute Nucleated RBC 0.000 Nucleated RBC % 0.0 Sodium 137 Potassium 3.4 Chloride 101 Carbon Dioxide 30 Anion Gap 6 BUN 13 Creatinine 0.30 L Estim Creat Clear Calc 185 Estimated GFR > 60 Glucose 161 H POC Capillary Glucose 149 H 241 H Calcium 8.4 Total Bilirubin 0.6 AST 14 ALT 7 Alkaline Phosphatase 65 Total Protein 6.0 L Albumin 3.2 L Vancomycin Trough 8.9 L 06/12/24 06/12/24 16:29 11:19 WBC RBC Hgb Hct MCV MCH MCHC RDW Plt Count MPV Immature Gran % (Auto) Neut % (Auto) Lymph % (Auto) [place] % (Auto) Eos % (Auto) Baso % (Auto) Lymph # (Auto) [place] # (Auto) Eos # (Auto) Baso # (Auto) Abs Immat Gran (auto) Absolute Neuts (auto) Absolute Nucleated RBC Nucleated RBC % Sodium Potassium Chloride Carbon Dioxide Anion Gap BUN Creatinine Estim Creat Clear Calc Estimated GFR Glucose POC Capillary Glucose 243 H 225 H Calcium Total Bilirubin AST ALT Alkaline Phosphatase Total Protein Albumin Vancomycin Trough Preliminary micro results at discharge 06/11/24 14:13 Anaerobic Culture - Preliminary Abscess Aerobic Culture - Preliminary Staphylococcus lugdunesis 06/10/24 23:08 Blood Culture - Preliminary Blood 06/10/24 23:15 Blood Culture - Preliminary Blood Discharge Plan Discharge Attending physician on discharge: Albert Ibanez Consulting providers: Edgard Leal Discharging Clinician: Genet Ann Anticipated Discharge Date/Time: 06/13/24 13:00 Patient Disposition: Home, Self-Care Activity: other - see discharge instructions Diet: diabetic Discharge Instructions: Continue to pack the left lower quadrant abdominal wound with 1/4 inch iodoform packing once daily, then cover with gauze and tape. Okay to shower over abdominal wound with mild soap and water daily before applying the new dressing (after removal). 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 Call to schedule a follow-up with Dr. Leal in 2-3 weeks in the office. [phone] Monitor your glucose closely after discharge. Poorly controlled diabetes and hinder healing and cause further complications with an infection and open wound. May take a probiotic or eat yogurt to prevent diarrhea with antibiotics. Patient Instructions: Antibiotic Form, Apixaban (By mouth), Abscess (GEN), Hidradenitis Suppurativa (GEN), Diabetes and Nutrition (DC) Stand Alone Forms: General Discharge Information, Work/School Release IP Follow-up/Referrals: Genia Moran APRN [Primary Care Provider] - 1 Week Edgard Leal DO [Physician] - 2 Weeks Discharge Medications: New amoxicillin-pot clavulanate 875-125 mg tablet 1 tablet PO Q12H Qty: 13 0RF doxycycline hyclate 100 mg capsule 100 mg PO Q12H Qty: 13 0RF Continued Mounjaro 7.5 mg/0.5 mL pen injector 7.5 mg subcut WEEKLY Qty: 2 0RF fluoxetine 20 mg capsule 20 mg PO DAILY Qty: 90 3RF lisinopril 10 mg tablet 10 mg PO DAILY metformin 1,000 mg tablet 1,000 mg PO BID insulin glargine [Lantus U-100 Insulin] 100 unit/mL solution 30 unit subcut QPM Qty: 10 0RF ondansetron HCl 4 mg tablet 4 mg PO Q6H PRN (Reason: nausea and vomiting) Qty: 20 0RF simvastatin 20 mg tablet 20 mg PO HS gabapentin 300 mg capsule 300 mg PO Q12H Invokana 300 mg tablet 300 mg PO DAILY Qty: 90 3RF sotalol 80 mg tablet See Rx Instructions .ROUTE .COMPLEX Qty: 60 5RF Dose Instruction: TAKE 1 TABLET BY MOUTH EVERY 12 HOURS Rx Instructions: TAKE 1 TABLET BY MOUTH EVERY 12 HOURS insulin lispro 100 unit/mL insulin pen 1 sliding scale dose subcut USEASDIRECTD Qty: 15 0RF Rx Instructions: 22 base 150 or higher 1 extra unit 150-199 2 units 200 or greater 3 units max of 25 units per meal, daily max of 75 units. Eliquis 5 mg tablet 5 mg PO Q12HR Qty: 60 5RF Discontinued cephalexin 500 mg capsule 500 mg PO Q8H 7 Days Qty: 21 0RF Date of admission: 06/11/24 07:06 Primary Care Provider: Genia Moran Admitting Provider: Joi De Dios V. Attending physician on admission: Joi De Dios V. Condition: Stable Hospitalist MIPS Heart Failure (Exclusion) Patient has history of Heart Transplant or Left Ventricular Assistive Device?: No IF YES, STOP HERE Heart Failure (Qualifier) Patient has current or prior documentation of LVEF less than or equal to 40%, or mod/servere depressed LVSF?: No IF NO, STOP HERE
[2024-06-13 11:30] LABS: Glucose Point of Care 239 mg/dl (65-105)
[2024-06-13] MEDS: INSULIN ASPART (*BKC) 100 UNITS/ML SUB-Q (11:33)
--- NOTE | 2024-06-13 11:56 | PM.PNGS ---
Progress Note: A&P Assessment and Plan (1) Abscess of abdominal wall: Code(s): L02.211 - Cutaneous abscess of abdominal wall Status: Acute Assessment and Plan: Okay to discharge from a surgical standpoint on oral antibiotics. Cultures showing gram + cocci this morning. Continue daily packing dressing changes. Patient is able to do this on her own. Follow-up in [address] 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 Leal. Subjective Subjective Date/Time Seen: 06/13/24 11:56 Post Op day: 2 (I&D abdominal wall abscess, excisional debridement necrotic skin of abdominal wall) Patient reports: no new complaints, feels better and afebrile Interval history: Patient reports swelling and pain at the LLQ abscess continues to improve since I&D. Her only complaint for me today is some mild back pain from laying in the hospital bed. No fevers. WBC normal today. Exam Narrative: LLQ dressing and packing removed. She now has an open abdominal wound that has scant bloody penaloza drainage on the dressing, no residual abscess or purulent drainage. Mild erythema and induration around the border of the wound which is reportedly improving. Mild expected tenderness, also reportedly improved. Const: General: comfortable and no acute distress Objective Data Vital Signs Vital Signs: Vital Signs - 24 hr 06/12/24 15:57 06/12/24 20:34 06/12/24 20:45 Temperature 98.4 F Pulse Rate 87 80 Respiratory Rate 20 Blood Pressure 112/72 Pulse Oximetry 99 Oxygen Delivery Room Air 06/12/24 20:40 06/12/24 21:59 06/13/24 06:32 Temperature 98.7 F 97.6 F Pulse Rate 87 80 Respiratory Rate 18 18 Blood Pressure 124/60 101/61 Pulse Oximetry 98 98 Oxygen Delivery Intake/Output Intake/Output: Intake & Output 06/10/24 06/11/24 06/12/24 06/13/24 23:59 23:59 23:59 23:59 Intake Total 1470 2778 460 Output Total 500 Balance 970 2778 460 Meds/Results Medications: Active Medications Generic Name Dose Route Start Last Admin Trade Name Freq PRN Reason Stop Dose Admin Acetaminophen 650 mg 06/11/24 01:25 Acetaminophen 325 Mg Tablet PO Q4H PRN Mild Pain (1-3) or Fever Amoxicillin/Clavulanate Potassium 1 tablet 06/13/24 12:00 Amoxicillin/Clavulanate K 875-125 Mg Tab PO 06/19/24 21:01 Q12HR SYLVIE Apixaban 5 mg 06/12/24 21:00 06/13/24 08:32 Apixaban 5 Mg Tablet PO 5 mg Q12HR SYLVIE Administration Dextrose 12.5 gm 06/11/24 08:56 Dextrose 50% 25 Gm/50 Ml Syringe IV PUSH PRN PRN Hypoglycemia Protocol Docusate Sodium 100 mg 06/11/24 09:02 Docusate Sodium 100 Mg Capsule PO Q12H PRN Constipation Doxycycline Hyclate 100 mg 06/13/24 12:00 Doxycycline Hyclate 100 Mg Tablet PO 06/19/24 21:01 Q12HR SYLVIE Fluoxetine HCl 20 mg 06/11/24 09:00 06/13/24 08:32 Fluoxetine Hcl 20 Mg Capsule PO 20 mg DAILY SYLVIE Administration Gabapentin 300 mg 06/11/24 09:00 06/13/24 08:32 Gabapentin 300 Mg Capsule PO 300 mg Q12HR SYLVIE Administration Glucagon 1 mg 06/11/24 08:56 Glucagon For Inj 1 Mg Vial IM PRN PRN Hypoglycemia Protocol Glucose 15 gm 06/11/24 08:56 Glucose Oral Gel 15 Gm Of Glucse In 37.5 Gm Tube PO PRN PRN Hypoglycemia Protocol Dextrose 1,000 mls @ 100 mls/hr 06/11/24 08:56 Dextrose 5% 1,000 Ml IVPB PRN PRN Hypoglycemia Protocol Insulin Aspart 4 - 8 units 06/11/24 12:00 06/13/24 11:33 Insulin Aspart (*Bkc) 100 Units/Ml SUB-Q 4 units TIDWM SYLVIE Administration Protocol Insulin Aspart 2 - 4 units 06/11/24 21:00 06/12/24 20:39 Insulin Aspart (*Bkc) 100 Units/Ml SUB-Q 2 units HS SYLVIE Administration Protocol Insulin Glargine 30 units 06/11/24 18:00 06/12/24 17:00 Insulin Glargine (*Bkc) 100 Units/Ml SUB-Q 30 units QPM SYLVIE Administration Lisinopril 10 mg 06/11/24 09:00 06/13/24 08:32 Lisinopril 10 Mg Tablet PO 10 mg DAILY SYLVIE Administration Morphine Sulfate 4 mg 06/11/24 13:02 06/12/24 20:40 Morphine Sulfate (*Crx) 4 Mg/Ml Inj IV PUSH 4 mg Q2H PRN Administration Pain Rated 7-10 Ondansetron HCl 4 mg 06/11/24 01:25 Ondansetron Inj 4 Mg/2 Ml Vial IV PUSH Q4H PRN Nausea Ondansetron HCl 4 mg 06/11/24 08:49 Ondansetron Hcl Odt 4 Mg Tablet PO Q6H PRN nausea and vomiting Polyethylene Glycol 17 gm 06/12/24 10:50 06/13/24 08:32 Polyethylene Glycol 3350 17 Gm Powd.Pack PO 17 gm QAM SYLVIE Administration Simvastatin 20 mg 06/11/24 21:00 06/12/24 20:34 Simvastatin 20 Mg Tablet PO 20 mg HS SYLVIE Administration Sotalol HCl 80 mg 06/11/24 09:00 06/13/24 08:32 Sotalol Hcl 80 Mg Tablet BY MOUTH 80 mg Q12HR SYLVIE Administration Radiology Results: ITS Impressions Abdomen/Pelvis CT 06/10/24 23:58 IMPRESSION: 1. Left abdominal wall cellulitis with 2.6 x 1.5 cm mass that may be phlegmon or early abscess. Labs Labs: Laboratory Results - last 24 hr 06/12/24 06/12/24 06/13/24 16:29 20:33 05:56 WBC 6.6 RBC 4.41 Hgb 12.1 Hct 37.8 MCV 85.7 MCH 27.4 MCHC 32.0 RDW 12.6 Plt Count 236 MPV 10.2 Immature Gran % (Auto) 0.5 Neut % (Auto) 48.8 Lymph % (Auto) 34.5 Jones % (Auto) 13.3 H Eos % (Auto) 2.4 Baso % (Auto) 0.5 Lymph # (Auto) 2.29 Jones # (Auto) 0.9 H Eos # (Auto) 0.2 Baso # (Auto) 0.0 Abs Immat Gran (auto) 0.03 Absolute Neuts (auto) 3.3 Absolute Nucleated RBC 0.000 Nucleated RBC % 0.0 Sodium 137 Potassium 3.4 Chloride 101 Carbon Dioxide 30 Anion Gap 6 BUN 13 Creatinine 0.30 L Estim Creat Clear Calc 185 Estimated GFR > 60 Glucose 161 H POC Capillary Glucose 243 H 241 H Calcium 8.4 Total Bilirubin 0.6 AST 14 ALT 7 Alkaline Phosphatase 65 Total Protein 6.0 L Albumin 3.2 L Vancomycin Trough 8.9 L 06/13/24 06/13/24 07:24 11:24 WBC RBC Hgb Hct MCV MCH MCHC RDW Plt Count MPV Immature Gran % (Auto) Neut % (Auto) Lymph % (Auto) Jones % (Auto) Eos % (Auto) Baso % (Auto) Lymph # (Auto) Jones # (Auto) Eos # (Auto) Baso # (Auto) Abs Immat Gran (auto) Absolute Neuts (auto) Absolute Nucleated RBC Nucleated RBC % Sodium Potassium Chloride Carbon Dioxide Anion Gap BUN Creatinine Estim Creat Clear Calc Estimated GFR Glucose POC Capillary Glucose 149 H 239 H Calcium Total Bilirubin AST ALT Alkaline Phosphatase Total Protein Albumin Vancomycin Trough
[2024-06-13] MEDS: DOXYCYCLINE HYCLATE 100 MG TABLET PO (12:54)
[2024-06-13] MEDS: AMOXICILLIN/CLAVULANATE K 875-125 MG TAB 1 TABLET PO (12:54)
== END 2024-06-13 13:30 | disposition home or self-care (01) ==
LOC: ANHED 06-11 02:16 → ANH3MEDSUR 06-11 03:39
PROVIDERS: Nurse Practitioner Family; Registered Nurse; Admitting Provider Internal Medicine; Emergency Provider Student in an Organized Health Care Education/Training Program; PCP Nurse Practitioner Family; Visit Provider General Practice
DX: L02.211 Cutaneous abscess of abdominal wall (principal); B95.7 Other staphylococcus as the cause of diseases classified elsewhere; L02.411 Cutaneous abscess of right axilla; L03.311 Cellulitis of abdominal wall; L73.2 Hidradenitis suppurativa; E11.65 Type 2 diabetes mellitus with hyperglycemia; F41.8 Other specified anxiety disorders; E78.5 Hyperlipidemia, unspecified; I10 Essential (primary) hypertension; I48.0 Paroxysmal atrial fibrillation; F17.210 Nicotine dependence, cigarettes, uncomplicated; Z79.01 Long term (current) use of anticoagulants; Z79.4 Long term (current) use of insulin; Z79.84 Long term (current) use of oral hypoglycemic drugs; Z79.899 Other long term (current) drug therapy; Z86.718 Personal history of other venous thrombosis and embolism; Z86.711 Personal history of pulmonary embolism; Z96.653 Presence of artificial knee joint, bilateral; Z90.49 Acquired absence of other specified parts of digestive tract; Z88.1 Allergy status to other antibiotic agents; Z88.2 Allergy status to sulfonamides
CPT/HCPCS: 10060; 36415; 74177; 80053; 80202; 81003; 82010; 82565; 82803; 82948; 83605; 83735; 84484; 85025; 85610; 85730; 86140; 87040; 87070; 87075; 87181; 87205; 93005; 96365; 96366; 96368; 96372; 96375; 96376; 99285; A9270; G0378; G0379; J0692; J1650; J1815; J2004; J2270; J2405; J3370; Q9967

== ENCOUNTER 2024-08-07 07:24 | Emergency (ER) | payer OTHER, SELFPAY ==
[2024-08-07] VITALS (10 sets, daily range): BP systolic 150–168; BP diastolic 46–85; PULSE 116–134; RESP 17–22; TEMP 36.6–36.8; O2SAT 98–100
--- NOTE | ~2024-08-07 | XR_ITS ---
CHEST RADIOGRAPH, PA AND LATERAL CLINICAL HISTORY: cough, congestion, VOMITING, CHEST PAIN, DIARRHEA . COMPARISON: 12/12/2022 TECHNIQUE: PA and lateral views of the chest. FINDINGS The cardiomediastinal silhouette is unremarkable. The lungs are clear. Visualized osseous structures and soft tissues are unremarkable. IMPRESSION: No focal infiltrate or effusion. Reviewed, dictated and finalized at location A. T CULTURE OPERATOR
--- NOTE | ~2024-08-07 | CT_ITS ---
EXAMINATION: CTA chest PE protocol DATE: 08/07/2024 12:07 ELECTRICIAN FRONT INDICATION: Tachycardia. Pulmonary embolus suspected clinically TECHNIQUE: Computed tomographic angiography (CTA) of the chest was performed with 100 mL Omnipaque-35 0 intravenous contrast. The dose-length product was 508.03 mGy-cm. Maximum intensity projection 3D-re constructions of the aorta and other arteries were constructed by the technologist on a separate work station. COMPARISON: None. FINDINGS: No filling defect is identified within the main or proximal pulmonary arteries. The main pulmonary artery is not enlarged. The thoracic aorta is unremarkable without aneurysmal dilatation or dissection. Trace peribronchial thickening, without focal infiltrate. No pleural effusion. The lungs are clear. Within the upper abdomen: The gallbladder is surgically absent. The bilateral adrenal glands are unremarkable. IMPRESSION: No pulmonary embolus. No aortic dissection. Trace peribronchial thickening without focal infiltrate. Reviewed, dictated and finalized at location A. TRICIAN FRONT
--- NOTE | 2024-08-07 07:32 | ECG_ITS ---
Test Date: 2024-08-07 07:33:53 Measurements Intervals [place] Rate: 131 P: 66 NH: 159 QRS: 62 QRSD: 86 T: 107 QT: 305 QTc: 452 Interpretive Statements SINUS TACHYCARDIA NONSPECIFIC T-WAVE ABNORMALITY ABNORMAL RHYTHM ECG Compared to ECG 06/10/2024 23:05:35 no change Electronically Signed On 08-07-2024 10:07:57 CLOSET ORGANIZER by Chris Gonzalez M.D.
[2024-08-07 07:45] LABS: Basophils Percent Auto 0.3 % (0.2-1.2); Hematocrit 53.1 % (37.0-47.0); Hemoglobin 16.4 g/dL (12.0-15.0); Immature Granulocyte Absolute 0.04 K/mm3 (0.00-0.031); Immature Granulocyte Percent A 0.4 % (0-0.5); Lymphocytes Absolute Auto 1.53 K/mm3 (0.9-3.2); Lymphocytes Percent Auto 16.3 % (18.3-44.2); Mean Corpuscular HGB Conc 30.9 g/dl (32-36); Mean Corpuscular Volume 90.6 fl (80-100); Mean Platelet Volume 9.9 fl (7.4-10.4); Monocytes Absolute Auto 0.5 K/mm3 (0.1-0.6); Monocytes Percent Auto 4.8 % (2.6-8.5); Neutrophils Absolute Auto 7.3 K/mm3 (1.3-6.7); Neutrophils Percent Auto 78.2 % (45.5-73.1); Platelet Count Result 249 k/mm3 (150-375); Red Blood Count 5.86 M/mm3 (4.2-5.4); Red Cell Distribution Width 13.6 % (11.5-14.5); White Blood Count 9.4 K/mm3 (4.5-10.0)
[2024-08-07 08:00] LABS: Alanine Aminotransferase 21 U/L (6-35); Albumin Level 4.9 g/dL (3.5-5.1); Alkaline Phosphatase 90 U/L (38-126); Anion Gap 28 mmol/L (4-12); Aspartate Amino Transferase 27 U/L (14-36); Bilirubin,Total 0.8 mg/dL (0.2-1.3); Blood Urea Nitrogen 17 mg/dL (7-17); Calcium 9.7 mg/dL (8.4-10.2); Carbon Dioxide 8 mmol/L (22-30); Chloride 102 mmol/L (98-107); Estimated CRCL calculation 87 ml/min; Estimated Glomerular Filt Rate > 60; Glucose 217 mg/dL (65-110); Potassium 5.2 mmol/L (3.4-5.0); Sodium 138 mmol/L (137-145)
[2024-08-07 08:31] LABS: Influenza A QL RT-PCR Positive (Negative); Influenza B QL RT-PCR Negative (Negative); RSV RNA, RT-PCR Negative (Negative); SARS-CoV-2 RNA PCR Negative (Negative)
[2024-08-07 08:45] LABS: Add Urine Microscopic? YES; Appearance Urine Clear (Clear); Bacteria Urine None Seen /hpf; Bilirubin Urine Negative (Negative); Blood Urine Negative (Negative); Color Urine Yellow (Yellow); Glucose Urine UA 3+ mg/dL (Negative); Ketones Urine 4+ mg/dL (Negative); Leukocyte Esterase Ur Negative LEU/UL (Negative); Nitrate Urine Negative (Negative); Protein Urine 1+ mg/dL (Negative); RBC Urine 0-2 /hpf (0-2); Specific Grav Ur 1.023 (1.001-1.035); Squamous Epithelial Cell Urine None Seen /hpf (Few); Urobilinogen Urine 0.2 mg/dL (<2.0); WBC Urine 0-5 /hpf (0-3)
[2024-08-07] MEDS: SODIUM CHLORIDE 0.9% IV 1,000 ML 999 ML (08:56)
[2024-08-07] MEDS: SODIUM CHLORIDE 0.9% IV 1,000 ML 999 ML IV CONT (10:30)
--- NOTE | 2024-08-07 10:49 | ED.GENADULT ---
HPI - General Adult General Chief complaint: Nausea/Vomiting/Diarrhea Stated complaint: I feel like shit , vomiting Time Seen by Provider: 08/07/24 08:12 History of Present Illness HPI narrative: 54-year-old female presents to the emergency department for evaluation for nausea and vomiting. Patient's states that he developed influenza symptoms approximately 1 week ago and he is feeling improved. Patient began developing her symptoms approximately 3 days ago. Patient denies any chest pain or shortness of breath. Patient does have nausea vomiting generalized weakness. Related Data Home Medications ?Medication ?Instructions ?Recorded ?Confirmed ?Last Taken ?Type gabapentin 300 mg capsule 300 mg PO Q12H 06/14/21 08/01/24 Unknown History simvastatin 20 mg tablet 20 mg PO HS 06/14/21 08/01/24 Unknown History lisinopril 10 mg tablet 10 mg PO DAILY 09/15/23 08/01/24 Unknown History metformin 1,000 mg tablet 1,000 mg PO BID 09/15/23 08/01/24 Unknown History Allergies Allergy/AdvReac Type Severity Reaction Status Date / Time clindamycin Allergy Unknown Hives / Verified 08/01/24 11:04 Red Face sulfamethoxazole Allergy Unknown Vomiting Verified 08/01/24 11:04 trimethoprim Allergy Unknown Vomiting Verified 08/01/24 11:04 celecoxib AdvReac Mild Unknown Verified 08/01/24 11:04 propoxyphene AdvReac Unknown Nausea and Verified 08/01/24 11:04 Vomiting hydrocodone (From Lortab) AdvReac Nausea and Verified 08/01/24 11:04 Vomiting Review of Systems Review of Systems: All systems reviewed & are unremarkable except as noted in HPI and below PMFSH Past Medical History Medical History Depression with anxiety Hyperlipidemia Hypertension History of DVT (deep vein thrombosis) History of pulmonary embolism Diabetes mellitus Surgical History Surgical History History of cholecystectomy History of tonsillectomy History of bilateral knee replacement History of orthopedic surgery Family History Family History Unknown Adopted Social History Social History Social History: The patient lives with her . The patient continues to smoke approximately 3-4 cigarettes a day. The patient does work at [employer]. Her is a durable power insurance defense attorney for [facility]. Code status full code Smoking status: Current every day smoker Tobacco type: cigarettes Second hand tobacco smoke exposure: No Alcohol intake: current Drinks per week: 5 Substance use: never Substance use type: marijuana Do You Feel Safe in your Home?: Yes Lack of Transportation: YES Lack of Food: Never True Current Housing: I Have Housing Concerned About Future Housing: No Difficulty Paying Gas/Electric Bills: No Difficulty Paying for Meds: No Currently Unemployed: No Education: Bachelor's Degree Difficulty w/ Childcare or Family Care: No Living arrangements: with family Gender identity (if verbalized by the patient): Female Sexual Orientation (if Verbalized by the Patient): Straight or Heterosexual Spiritual care concerns: No Exam Narrative: APPEARANCE: Well appearing, no pain, no distress, well-nourished. HEAD: normocephalic, atraumatic. EYES: PERRLA/EOMI, conjunctivae clear. NOSE: Normal no drainage EARS:TMS clear with good light reflex. THROAT: Pharynx clear, no exudate. NECK: Supple. No adenopathy, no masses. RESPIRATORY: Airway patent, respirations nonlabored. Clear to auscultation bilaterally, no rales, rhonchi, wheezing. CARDIOVASCULAR: Sinus tachycardia ABDOMINAL: Soft, nontender, nondistended, normal bowel sounds MUSCULOSKELETAL: Moves all extremities. Strength/ROM intact, No edema, No calf tenderness. NEURO: Alert. Cranial nerves II through XII intact. Grossly intact SKIN: Warm, dry. Normal Color Course Vital Signs Vital signs: Vital Signs Temperature 98.2 F 08/07/24 07:38 Pulse Rate 119 H 08/07/24 07:38 Respiratory Rate 18 08/07/24 07:38 Blood Pressure 150/46 H 08/07/24 07:38 Pulse Oximetry 99 08/07/24 07:38 Oxygen Delivery Room Air 08/07/24 07:38 Temperature 98.0 F 08/07/24 11:16 Pulse Rate 121 H 08/07/24 13:11 Respiratory Rate 21 H 08/07/24 13:11 Blood Pressure 165/85 H 08/07/24 13:11 Pulse Oximetry 99 08/07/24 13:11 Oxygen Delivery Room Air 08/07/24 07:38 Medical Decision Making MDM Narrative Medical decision making narrative: 54-year-old female presents to the emergency department for evaluation for feeling ill for the past 3-4 days. Patient was afebrile but was tachycardic. Patient's heart rate did improve with 2 L of IV fluids. Patient has no leukocytosis and hemoglobin of 16.4. No significant abnormalities on the CMP other than potassium of 5.2. UA was negative for infection. Patient was positive for influenza A negative for influenza B RSV and for COVID. Chest x-ray shows no acute cardiopulmonary abnormality. Patient's heart rate did improve after receiving her home dose of sotalol and IV fluids. PE study was negative for pulmonary embolism. Patient did feel improved at time of discharge. All questions concerns were addressed. Patient was encouraged close follow-up with her primary care physician. Differential Diagnosis Differential Diagnosis: Dehydration, COVID, influenza, RSV, pneumonia, pulmonary embolism, pneumothorax Vital Signs Vital Signs: Vital Signs Temperature 98.2 F 08/07/24 07:38 Pulse Rate 119 H 08/07/24 07:38 Respiratory Rate 18 08/07/24 07:38 Blood Pressure 150/46 H 08/07/24 07:38 Pulse Oximetry 99 08/07/24 07:38 Oxygen Delivery Room Air 08/07/24 07:38 Temperature 98.0 F 08/07/24 11:16 Pulse Rate 121 H 08/07/24 13:11 Respiratory Rate 21 H 08/07/24 13:11 Blood Pressure 165/85 H 08/07/24 13:11 Pulse Oximetry 99 08/07/24 13:11 Oxygen Delivery Room Air 08/07/24 07:38 Lab Data 08/07/24 07:38 08/07/24 07:38 Labs: Lab Results 08/07/24 08/07/24 Range/Units 07:38 08:34 WBC 9.4 (4.5-10.0) K/mm3 RBC 5.86 H (4.2-5.4) M/mm3 Hgb 16.4 H D (12.0-15.0) g/dL Hct 53.1 H (37.0-47.0) % MCV 90.6 (80-100) fl MCH 28.0 (26-34) pg MCHC 30.9 L (32-36) g/dl RDW 13.6 (11.5-14.5) % Plt Count 249 (150-375) k/mm3 MPV 9.9 (7.4-10.4) fl Immature Gran % (Auto) 0.4 (0-0.5) % Neut % (Auto) 78.2 H (45.5-73.1) % Lymph % (Auto) 16.3 L (18.3-44.2) % Granite % (Auto) 4.8 (2.6-8.5) % Eos % (Auto) 0.0 (0-4.4) % Baso % (Auto) 0.3 (0.2-1.2) % Lymph # (Auto) 1.53 (0.9-3.2) K/mm3 Granite # (Auto) 0.5 (0.1-0.6) K/mm3 Eos # (Auto) 0.0 (0-0.3) K/mm3 Baso # (Auto) 0.0 (0.0-0.1) K/mm3 Abs Immat Gran (auto) 0.04 H (0.00-0.031) K/mm3 Absolute Neuts (auto) 7.3 H (1.3-6.7) K/mm3 Absolute Nucleated RBC 0.000 (0.0-0.012) K/mm3 Nucleated RBC % 0.0 (0.0-0.2) % Sodium 138 (137-145) mmol/L Potassium 5.2 H (3.4-5.0) mmol/L Chloride 102 (98-107) mmol/L Carbon Dioxide 8 L (22-30) mmol/L Anion Gap 28 H (4-12) mmol/L BUN 17 (7-17) mg/dL Creatinine 0.68 L (0.7-1.0) mg/dL Estim Creat Clear Calc 87 ml/min Estimated GFR > 60 (59 - ) Glucose 217 H (65-110) mg/dL Calcium 9.7 (8.4-10.2) mg/dL Total Bilirubin 0.8 (0.2-1.3) mg/dL AST 27 (14-36) U/L ALT 21 (6-35) U/L Alkaline Phosphatase 90 (38-126) U/L Total Protein 9.0 H (6.3-8.2) g/dL Albumin 4.9 (3.5-5.1) g/dL Urine Color Yellow (Yellow) Urine Appearance Clear (Clear) Urine pH 5.0 (5.0-9.0) Ur Specific [place] 1.023 (1.001-1.035) Urine Protein 1+ H (Negative) mg/dL Urine Glucose (UA) 3+ H (Negative) mg/dL Urine Ketones 4+ H (Negative) mg/dL Ur Blood (Man) Negative (Negative) Urine Nitrate Negative (Negative) Urine Bilirubin Negative (Negative) Urine Urobilinogen 0.2 (<2.0) mg/dL Leukocyte Esterase Rfl Negative (Negative) MICHELLE/UL Urine RBC 0-2 (0-2) /hpf Urine WBC 0-5 (0-3) /hpf Ur Squamous Epith Cells None seen (Few) /hpf Urine Bacteria None seen /hpf Urine Casts 3-5 Influenza A (RT-PCR) Positive A (Negative) Influenza B (RT-PCR) Negative (Negative) RSV (RT-PCR) Negative (Negative) SARS-CoV-2 RNA (RT-PCR) Negative (Negative) Discharge Plan Discharge Clinical Impression: Influenza A, N&V (nausea and vomiting) Patient Disposition: Home, Self-Care Condition: Stable Instructions: Antibiotic Form, Clear Liquid Diet (ED), Acute Nausea and Vomiting (ED) Additional Instructions: Clear liquid diet for the next 1-3 days. Zofran as needed for nausea control. Home medications as directed. Have close follow-up with your primary care physician. If you have any worsening symptoms then please call or return to the emergency department. Patient Language: Greek Prescriptions: New ondansetron 4 mg tablet,disintegrating 4 mg PO Q8H PRN (Reason: nausea and vomiting) Qty: 14 0RF No Action Mounjaro 7.5 mg/0.5 mL pen injector 7.5 mg subcut WEEKLY Qty: 2 0RF fluoxetine 20 mg capsule 20 mg PO DAILY Qty: 90 3RF lisinopril 10 mg tablet 10 mg PO DAILY metformin 1,000 mg tablet 1,000 mg PO BID insulin glargine [Lantus U-100 Insulin] 100 unit/mL solution 30 unit subcut QPM Qty: 10 0RF ondansetron HCl 4 mg tablet 4 mg PO Q6H PRN (Reason: nausea and vomiting) Qty: 20 0RF fluconazole 150 mg tablet 150 mg PO DAILY Qty: 2 0RF Rx Instructions: 1 now, may repeat in 1 week simvastatin 20 mg tablet 20 mg PO HS gabapentin 300 mg capsule 300 mg PO Q12H Eliquis 5 mg tablet 5 mg PO Q12HR Qty: 60 5RF sotalol 80 mg tablet See Rx Instructions .ROUTE .COMPLEX Qty: 60 5RF Dose Instruction: TAKE 1 TABLET BY MOUTH EVERY 12 HOURS Rx Instructions: TAKE 1 TABLET BY MOUTH EVERY 12 HOURS diclofenac potassium 50 mg tablet See Rx Instructions .ROUTE .COMPLEX Qty: 30 0RF Dose Instruction: TAKE 1 TABLET BY MOUTH TWICE DAILY Rx Instructions: TAKE 1 TABLET BY MOUTH TWICE DAILY Invokana 300 mg tablet See Rx Instructions .ROUTE .COMPLEX Qty: 90 0RF Dose Instruction: TAKE 1 TABLET BY MOUTH DAILY Rx Instructions: TAKE 1 TABLET BY MOUTH DAILY insulin lispro 100 unit/mL insulin pen See Rx Instructions .ROUTE .COMPLEX Qty: 15 0RF Dose Instruction: USE PER SLIDING SCALE PROVIDED BY OFFICE, MAX OF 25 UNITS/MEAL AND MAX OF 75 UNITS/DAY. Rx Instructions: USE PER SLIDING SCALE PROVIDED BY OFFICE, MAX OF 25 UNITS/MEAL AND MAX OF 75 UNITS/DAY. Follow-up/Referrals: Genia Moran, HERBERT [Primary Care Provider] - Stand Alone Forms: Work/School Release IP
[2024-08-07] MEDS: SOTALOL HCL 40 MG TABLET PO (13:02)
--- OUTSIDE RECORDS SUMMARY | 2024-08-11 10:03 | XMS_ITS | Data Portability ---
Author Organization [place] - [facility], Main Office Address [address] [place] [id number] Care Team Providers Care Gre Instructor Name Role Phone AVELINA VERA Primary Care Provider [phone] AVELINA VERA Referring Provider [phone] Assessment Encounter Date Assessment Date Assessment LastModified by Organization Details LastModified Time 11/07/2022 11/07/2022 HPI: 52-year-old female came in today for evaluation of her right knee pain. She fell at work about a month ago. She tripped over a box and landed full weight on the right knee in the bent position. She fell onto a hard floor. She had immediate pain in the knee. She continues have some degree of symptoms in the knee. They have gradually improved. At this point she is able to work about 4 hours without discomfort and then after that she starts developing more pain in the knee. Patient had bilateral total knee arthroplasties done in 2006. Physical exam: 52-year-old female alert pleasant. She walks well without limp. She is 5 ft 4 251 lb her BMI is 43.1. She has no effusion in the right knee. No redness or warmth. No ecchymosis or old bruising noted. She has a slight bit of swelling over the anterior lateral tibial plateau. She has excellent stability in both flexion extension in the knee. Range motion is from 15-115 degrees. No increased swelling in either lower extremity. Impression: Patient had a hard fall 1 month ago and has had a contusion to the right knee. I discussed with her that there is no x-ray findings that point to fracture or damage to her total knee arthroplasty. There is no effusion in the knee. She has normal stability in the knee. I advised her that this is when to take time to just quiet down on its own. I would imagine it will take probably at least another month for her symptoms to completely resolve. She may use uuhv-[id number]-esgfwoi anti-inflammatori es or Tylenol for pain control. She does have ibuprofen 600 mg but only takes it as needed. Recommend she take it on a more regular basis to help with her symptoms. If her symptoms not improve she can call otherwise we will plan on seeing her back as needed. 20 minutes was spent treatment patient more than half of this in bdkr-da-bmas conversation lauriaimax Not available 11/07/2022 12:52:13 Plan of Treatment Reminders Order Date Submit Date Provider Last Modified By Organization Details Last Modified Time Details Appointments None record ed. Lab None record ed. Referral None record ed. Procedures None record ed. Surgeries None record ed. Imaging XR, knee 023 11/08/19 23 [email or web address] [facility] [place], [address] [facility], [place], [address], 21:15:56 Medication Orders None record ed. Patient TargetsNo targets recorded. Patient InstructionsNo instructions recorded. Reason for Referral None Reported. Results Created Date Observation Date Name Description Value Unit Range Abnormal Flag Note LastModifiedBy Organization Detail LastModifiedTime 01/03/2001/03/2022 CRYST ALS BODY FLUID crystal negati ve Not Available [facility] (Lab) [address] [place], [address], 01/03/2022 11:59:16 01/03/2001/02/[address] W/DIF F-AUT O color light- yellow Not Available [facility] (Lab) [address] [place], [address], 01/02/2022 21:27:26 01/03/20 22 01/02/[address] W/DIF F-AUT O appearance hazy Not Available [facility] (Lab) [address] [place], [address], 01/02/2022 21:27:26 01/03/20 22 01/02/[address] W/DIF F-AUT O volume 3.[address] [facility] (Lab) [address] [place], [address], 01/02/2022 21:27:26 01/03/20 22 01/02/[address] W/DIF F-AUT O WBC, body fluid 1103 /uL Not Available [facility] (Lab) [address] [place], [address], 01/02/2022 21:27:26 01/03/20 22 01/02/[address] W/DIF F-AUT O WBC body fluid-DNR 1.103 Not Available [facility] (Lab) [address] [place], [address], 01/02/2022 21:27:26 01/03/20 22 01/02/[address] W/DIF F-AUT O RBC, body fluid 2000 /uL Not Available [facility] (Lab) [address] [place], [address], 01/02/2022 21:27:26 01/03/20 22 01/02/[address] W/DIF F-AUT O RBC body fluid-DNR 0.002 Not Available [facility] (Lab) [address] [place], [address], 01/02/2022 21:27:26 01/03/20 22 01/02/[address] W/DIF F-AUT O % poly 5 % Not Available [facility] (Lab) [address] [place], [address], 01/02/2022 21:27:26 01/03/20 22 01/02/[address] W/DIF F-AUT O % mono 95 % Not Available [facility] (Lab) [address] [place], [address], 01/02/2022 21:27:26 01/03/20 22 01/02/[address] W/DIF F-AUT O source synovi al Not Available [facility] ([facility]) [address] [facility] [place], [address], 01/02/2022 21:27:26 01/02/20 22 01/01/2022 XR, knee, 3 view No observ ation record ed. [id number] Not Available 09/17/2022 13:35:50 11/08/19 23 XR, knee No observ ation record ed. [facility] [place] [address] [facility] [address], [place], [address], 11/07/2022 12:48:21 Result Notes None recorded. Problems Name Problem SNOMED Code Status Onset Date Resolution Date Notes Provider Name and Address Organization Details Recorded Time Bilateral osteoarthr itis of knees 6696125396215 07 Active 2021 Not Available [facility] 3 13:34:53 Pain of right knee joint 3234974099102 00 Active 2021 Not Available [facility] 3 13:34:53 Pain of bilateral knee joints 6044752768917 04 Active 2021 Not Available [facility] 3 13:34:53 Problem Notes None recorded. Procedures Surgical History Date Name Laterality Status Provider Name and Address Organization Details Recorded Time Knee Surgery completed Not Available [facility] 09/17/2022 13:34:45 tonsilectomy/a denoids completed Not Available [facility] 09/17/2022 13:34:45 section completed Not Available [facility] 09/17/2022 13:34:45 Imaging Results Imaging Date Name Status LastModified by Organiz ation Details LastModified Time 01/01/2022 XR, knee, 3 view completed [id number] Information not available 09/17/2022 13:35:50 11/07/2022 XR, knee completed [facility] [place] [address] [facility], [place], [address], 11/07/2022 12:48:21 Procedure Notes None recorded. Medical Equipment None Reported. Allergies Allergen ID Allergen Name Allergen Category Reaction Reaction Severity Criticality Documentation Date Start Date Code Code System Note Provider Name and Address Organization Details Recorded Time 55891 lorcaseri n medicatio n Not available Not available Not available 09/17/2022 36921 01 RxNorm Not Available [facility] 3 13:35:47 92988 Bactrim medicatio n Not available Not available Not available 09/17/2022 61061 9 RxNorm Not Available [facility] 3 13:35:47 Medications Name Sig Start Date Stop Date Status Note LastModified by Organization Details LastModified Time cyclobenzap rine 10 mg tablet TAKE 1 TABLET BY MOUTH THREE TIMES DAILY NEEDED FOR MUSCLE SPASM 04/17 completed Not Available Not Available Not Available pioglitazon e 15 mg tablet TAKE 1 TABLET BY MOUTH EVERY DAY active Not Available Not Available No t Available sucralfate 1 gram tablet TAKE 1 TABLET BY MOUTH FOUR TIMES DAILY 01/02 completed Not Available Not Available Not Available prednisone 20 mg tablet TAKE 1 TABLET BY MOUTH TWICE DAILY 04/17 completed Not Available Not Available Not Available tramadol 50 mg tablet 04/17 completed Not Available Not Available Not Available OneTouch Ultra Test strips USE 4 TIMES DAILY DIRECTED BEFORE MEALS AND NIGHTLY active Not Available Not Available No t Available doxycycline monohydrate 100 mg capsule TAKE 1 CAPSULE BY MOUTH TWICE DAILY UNTIL ALL TAKEN active Not Available Not Available No t Available cephalexin 500 mg capsule take 2 capsules PO now and 2 capsules PO in 6hrs active Not Available Not Available No t Available simvastatin 20 mg tablet TAKE 1 TABLET BY MOUTH AT BEDTIME active Not Available Not Available No t Available metformin 1,000 mg tablet TAKE 1 TABLET BY MOUTH TWICE DAILY active Not Available Not Available No t Available lisinopril 10 mg tablet TAKE 1 TABLET BY MOUTH EVERY DAY active Not Available Not Available No t Available gabapentin 300 mg capsule TAKE 1 CAPSULE BY MOUTH THREE TIMES DAILY active Not Available Not Available No t Available insulin lispro (U-100) 100 unit/mL subcutaneou s solution INJECT UP TO MAX AMOUNT OF 120 UNITS DAILY VIA PUMP. active Not Available Not Available No t Available ibuprofen 600 mg tablet TAKE 1 TABLET BY MOUTH EVERY 6 HOURS NEEDED FOR PAIN active Not Available Not Available No t Available levofloxaci n 500 mg tablet TAKE 1 TABLET BY MOUTH DAILY FOR 7 DAYS active Not Available Not Available No t Available albuterol sulfate HFA 90 mcg/actuati on aerosol inhaler INHALE 1 TO 2 PUFFS BY MOUTH EVERY 6 TO 8 HOURS NEEDED active Not Available Not Available No t Available fluoxetine 20 mg capsule TAKE 1 CAPSULE BY MOUTH EVERY DAY active Not Available Not Available No t Available amoxicillin 500 mg-potassiu m clavulanate 125 mg tablet TAKE 1 TABLET BY MOUTH TWICE DAILY active Not Available Not Available No t Available BD Ultra-Fine Mini Pen Needle 31 gauge x 3/16 USE ONCE DAILY DIRECTED active Not Available Not Available No t Available Januvia 50 mg tablet TAKE 1 TABLET BY MOUTH EVERY DAY active Not Available Not Available No t Available hydrochloro thiazide 12.5 mg tablet TAKE 1 TABLET BY MOUTH EVERY DAY 01/02 completed Not Available Not Available Not Available Steglatro 15 mg tablet TAKE 1 TABLET BY MOUTH EVERY DAY active Not Available Not Available No t Available Baqsimi 3 mg/actuatio n nasal spray ADMINISTE R 1 SPRAY INTO THE NOSE NEEDED FOR SEVERE HYPOGLYCE BREE AND CORRECTIN G BY MOUTH IS NOT AN OPTION 04/17 completed Not Available Not Available Not Available Paxlovid 300 mg (150 mg x 2)-100 mg tablets in a dose pack FOLLOW PACKAGE DIRECTION S active Not Available Not Available No t Available Vitals Date Recorded Body mass index (BMI) Body height Body weight Provider Name and Address Organization Details Last Updated DateTime 01/02/2022 43.1 kg/m2 162.56 cm 988498.68 g Not Available [facility] 09/17/2022 13:34:47 Date Recorded Body height Provider Name an d Address Organization Details Last Updated DateTime 01/16/2022 162.56 cm Not Available [facility] 13:34:47 Date Recorded Body height Provider Name an d Address Organization Details Last Updated DateTime 04/17/2022 162.56 cm Not Available [facility] 13:34:47 Date Recorded Body height Provider Name an d Address Organization Details Last Updated DateTime 11/07/2022 162.56 cm MALENA [place] - [facility] 11/07/2022 12:10:12 Social History Question Answer Notes LastModified by Organizat ion Details LastModified Time Tobacco Smoking Status Current Every Day Smoker Not Available [facility] 09/17/2022 13:34:41 What Is Your Level Of Alcohol Consumption? Occasional [id number] Information not available 09/17/2022 Sex: Unknown Functional Status None recorded. Mental Status None recorded. Family History Nothing Reported. Medical History Condition Response BLINDNESS N KIDNEY STONES N MRSA N CARPAL TUNNEL SYNDROME N LUNG DISEASE/DISORDER N HISTORY OF DRUG ABUSE N RADIATION / CHEMOTHERAPY N COPD N SPORTS INJURY N ANKLE PAIN N BLOOD DISEASES N SCHIZOPHRENIA N SHINGLES N SHOULDER PAIN N DEPRESSION (INCLUDING POST ) N BOWEL PROBLEMS N STROKE/TIA N ULCERS N KNEE PAIN N BENIGN PROSTATIC HYPERPLASIA N OBESITY N GERD/NAUSEA N ANEURYSM N URINARY/BLADDER/KIDNEY PROBLEMS N CORONARY ARTERY DISEASE (CAD) N ADDICTION CONCERNS N USE OF BLOOD THINNERS Y SKIN PROBLEMS N EMPHYSEMA N MUSCLE,JOINT OR BONE PROBLEMS N DVT N STOMACH ULCERS N BLOOD CLOTS Y USE OF NSAIDS N CONCUSSION OR SPINAL TRAUMA N NEUROPATHY N AIDS/HIV N FRACTURES N HYPERTENSION N ELBOW PAIN N TOURETTE'S N Metal allergy N ANXIETY DISORDER N BLOOD TRANSFUSION N ANEMIA/BLOOD DISORDER N BIPOLAR DISORDER N BRONCHITIS N OSTEOARTHRITIS N TUBERCULOSIS N FOOT PROBLEM N HEART VALVE DISORDERS N ALLERGIES/HAYFEVER N SOFT TISSUE INJURY N INFECTIOUS DISEASE N HEART ARRHYTHMIA N INSOMNIA N HIGH CHOLESTEROL / HYPERLIPIDEMIA N RHEUMATOID ARTHRITIS N EDEMA N CHRONIC PAIN SYNDROME N CAROTID BLOCKAGE N BACK / NECK PROBLEMS N HAVE YOU BEEN HOSPITALIZED OR SEEN IN [facility] IN THE PAST YEAR ? N BURSITIS N HERNIATED DISC N DIALYSIS N FIBROMYALGIA N OSTEOPOROSIS N ARTHRITIS Y NO SIGNIFICANT PAST MEDICAL HISTORY N PERIPHERAL NEUROPATHY N DIABETES, TYPE Y HEARTBURN / REFLUX N HEPATITIS / LIVER DISEASE N GOUT N ALZHEIMER'S DISEASE N SLEEP DISORDER N HERPES N HEADACHES/MIGRAINES N SEIZURES/EPILEPSY N VASCULAR DISEASE N Blood Disorder N HIP PAIN N DIZZINESS N HEAD TRAUMA OR INJURY N HEART DISEASE/HEART PROBLEMS N MULTIPLE SCLEROSIS N CANCER: SPECIFY N CARDIAC ARRHYTHMIA N ANESTHESIA COMPLICATIONS N ATRIAL FIBRILLATION N AUTOIMMUNE DISEASE N Gynecological HistoryNo gynecological history recorded. Obstetrics History GPAL:G 0 P 0 0 0 0 Past Encounters Encounter ID Performer Location Encounter Start Date Encounter Closed Date Diagnosis/Indication Diagnosis SNOMED-CT Code Diagnosis ICD10 Code Diagnosis Note [id number] [facility] [address] [place] [address] 01/02/2022 00:00:00 01/20/2022 16:25:29 [id number] [facility] [address] [place] [address] 01/16/2022 00:00:00 01/20/2022 16:36:07 [id number] [facility] [address] [address] 04/17/2022 00:00:00 04/17/2022 15:51:11 [id number] MARKIE Angulo [facility] [place] [address] [facility] [address] [facility] [address] [place] [address] 11/07/2022 12:00:50 11/07/2022 12:54:24 Pain of right knee joint 6922616858 49239 M25.561 Health Concerns Section Related Observation LastModified by Organization Detai ls LastModified Time None Recorded Concern Status LastModified by Organization Details LastModified Time None Recorded Advance Directives Directive None Recorded Payers Encounter Date Sequence Insurance Name Policy Number Policy [place] Covered Member ID Sk[place]gs Member ID Guarantor Name 11/07/2022 1 [facility] ON OR AFTER 01/17/21 (MEDICAID REPLACEMENT - HMO) Whit Segovia [id number] Whit Segovia OBGyn Episode No OBEpisode recorded.
--- OUTSIDE RECORDS SUMMARY | 2024-08-11 10:03 | XMS_ITS | Clinical Summary ---
Author Organization [facility] Address [address] [place] [address] Care Team Providers Care Medical Record Clerk Name Role Phone Luis M Kirkpatrick MD Unavailable [phone] Lucho Casas MD Unavailable [phone] Luis M Kirkpatrick MD Primary Care Provider [phone] Source Comments [facility],non-owned Affiliates and Associated Physician Practices is amultiple site organization consisting of ambulatory clinics and hospital sitesin [place], [place], [place] and [place]. This disclosure is being madepursuant to the Care Everywhere program and may not contain all information available regarding this patient. Last updated 18.[facility] Allergies Active Allergy Reactions Criticality Noted Date Comments Sulfamethoxazole W-Trimethoprim Nausea and/or Vomiting 01/19/2019 Bee Venom Itching,Swelling 11/14/2011 Celecoxib Nausea and/or Vomiting 01/19/2019 Clindamycin Urticaria Medium 01/19/2019 Propoxyphene N-Apap Nausea and/or Vomiting 10/19 Propoxyphene N-Apap Vomiting 01/19/2019 Hydrocodone-Acetaminophen Nausea and/or Vomiting 11/14/2011 Wasp Venom Itching,Swelling 11/14/2011 Medications * Be aware that medications may not be up to date on this document. Alwaysverify current medications with the patient. Medication Sig Dispensed Refills Start Date End Date Status Insulin Pump Accessories MISC Active FLUoxetine (PROZAC) 20 MG capsule Take 1 (one) capsule by mouth once daily 01/04/2019 Active gabapentin (NEURONTIN) 300 MG capsule Take 1 (one) capsule by mouth 2 times daily as needed 60 capsule 3 06/04/2021 Active Eliquis 5 MG tablet Take 1 (one) tablet by mouth every 12 hours 03/24/2023 Active sotalol (Betapace) 80 MG tablet Take 1 (one) tablet by mouth every 12 hours 03/24/2023 Active lisinopril (Prinivil; Zestril) 10 MG tabletIndications :DM (diabetes mellitus) type II, controlled, with peripheral vascular disorder (HCC) Take 1 (one) tablet by mouth once daily 90 tablet 3 04/07/2023 Active blood glucose test stripIndications: DM (diabetes mellitus) type II, controlled, with peripheral vascular disorder (HCC) Use 1 (one) strip 4 times daily - before meals & nightly One touch ultra test strip. May substitute 100 strip 11 05/29/2023 Active insulin pen needle (B-D UF III MINI PEN NEEDLES) 31G X 5 MM needleIndications :DM (diabetes mellitus) type II, controlled, with peripheral vascular disorder (HCC) by Injection route once daily May substitute 100 Each 11 05/29/2023 Active albuterol HFA (Proventil; Ventolin; Proair) 108 (90 Base) MCG/ACT inhaler INHALE 1 TO 2 PUFFS BY MOUTH EVERY 6 TO 8 HOURS NEEDED Active insulin glargine (Lantus/Semglee) 100 units/mL pen Inject 40 (forty) Units subcutaneously 2 times daily 90 mL 3 06/09/2023 Active dulaglutide (Trulicity) 3 MG/0.5ML injection Inject 0.5 mL subcutaneously every 7 days 6 mL 3 08/17/2023 Active metFORMIN (Glucophage) 1000 MG tablet Take 1 (one) tablet by mouth 2 times daily 60 tablet 11 08/17/2023 Active simvastatin (Zocor) 40 MG tablet Take 1 (one) tablet by mouth at bedtime 90 tablet 3 08/17/2023 Active insulin lispro (HumaLOG;ADMelog) 100 UNIT/ML pen INJECT 22 UNITS UNDER THE SKIN THREE TIMES DAILY BEFORE BREAKFAST, LUNCH, AND BEDTIME 3 mL 3 08/27/2023 Active tirzepatide (Mounjaro) 5 MG/0.5ML injection Inject 5 (five) mg subcutaneously every 7 days 6 mL 3 09/15/2023 Active Active Problems Problem Noted Date Diagnosed Date Insulin pump status 09/17/2023 DM (diabetes mellitus) type II, controlled, with peripheral vascular disorder 04/03/2020 BMI 38.0-38.9,adult 05/26/2019 Type 2 diabetes mellitus wit hout complication, with long-term current use of insulin 01/19/2019 HTN (hypertension) 01/19/2019 HLD (hyperlipidemia) 01/19/2019 Diabetes mellitus type 2, insulin dependent 10/19 Advanced maternal age in 11/14/2011 History of pulmonary embolism 11/14/2011 Chronic anticoagulation 11/14/2011 Family history of Down syndrome 11/14/2011 Obesity (BMI 30-39.9) 11/14/2011 Previous delivery, antepartum condition or complication 11/14/2011 Resolved Problems Problem Noted Date Diagnosed Date Resolved Date Acute cystitis 12/27/2019 04/03/2020 BMI 39.0-39.9,adult 01/19/2019 05/26/20 19 Type 2 diabetes mellitus 11/14/2011 Immunizations Name Administration Dates Next Due iNFLUENZA VACCINE, RECOM-YU, QUADR. (FLUBLOCK QUADRIVALENT; 18Y+) (RIV4) 06/04/2021 Family History Medical History Relation Name Comments Genetic/Metabolic Disease Brother do wn syndrome Relation Name Status Comments Brother Social History Tobacco Use Types Packs/Day Years Used Date Smoking Tobacco: Some Days Cigarettes 0.5 30 Smokeless Tobacco: Former Alcohol Use Standard Drinks/Week Comments Yes 0 (1 standard drink = 0.6 oz pur e alcohol) socially PHQ-2 Answer Date Recorded Patient Health Questionnaire-2 Score 0 06/09/2023 Sex and Gender Information Value Date Recorded Sex Assigned at Not on file Gender Identity Not on file Sexual Orientation Not on file Last Filed Vital Signs Vital Sign Reading Time Taken Comments Blood Pressure 146/85 09/15/2023 11:07 AM ELECTRICAL TEST ENGINEER Pulse 93 09/15/2023 11:07 AM ELECTRICAL TEST ENGINEER Temperature 36.5 ??C (97.7 ??F) 06/09/2023 10:[address] Respiratory Rate 18 06/09/2023 10:42 AM ELECTRICAL TEST ENGINEER Oxygen Saturation 96% 09/15/2023 11:07 AM ELECTRICAL TEST ENGINEER Inhaled Oxygen Concentration - - Weight 105.2 kg (232 lb) 09/15/2023 11:07 AM ELECTRICAL TEST ENGINEER Height 165.1 cm (5' 5 ) 09/15/2023 11:07 AM ELECTRICAL TEST ENGINEER Body Mass Index 38.61 09/15/2023 11:07 AM ELECTRICAL TEST ENGINEER Plan of Treatment Health Maintenance Due Date Last Done Comments COLOGUARD (AGES 45-75) - COLON CA SCREENING 1969 COLON MONITORING 1969 COLONOSCOPY - COLON CA SCREENING 1969 CT COLONOGRAPHY - COLON CA SCREENING 1969 Colorectal Cancer Screening 1969 FIT - COLON CA SCREENING 1969 FLEX SIG - COLON CA SCREENING 1969 MAMMOGRAM 1969 HIV SCREENING 02/10/1984 HEPATITIS C SCREENING 02/05/1987 DTAP/TDAP/TD VACCINES (1 - Tdap) 02/10/1988 HEPATITIS B VACCINE (1 of 3 - 19+ 3-dose series) 02/10/1988 PNEUMOCOCCAL VACCINE 50+ (1 of 2 - PCV) 02/10/1988 PNEUMOCOCCAL VACCINE (1 of 2 - PCV) 02/10/1988 ZOSTER VACCINE (1 of 2) 2019 DIABETES RETINOPATHY SCREENING 02/11/2021 02/11/2019, 02/11/2019 DIABETES-FOOT EXAM WITH MONOFILAMENT 07/30/2022 07/30/2021, 07/16/2020, 05/26/2019 DIABETES-HGB A1C 11/13/2023 08/14/2023, , 02/17/2023, Additional history exists DIABETES-SERUM CREATININE 02/23/20242022, 02/22/2023, 02/21/2023, Additional history exists COVID-19 VACCINE ( season) 2024 INFLUENZA VACCINE (#1) 2024 08/16/2023, 2020 DEPRESSION SCREENING 07/20/2024 06/09/2023 DIABETES - URINE PROTEIN SCREENING 07/20/2024 01/28/2022 PAP SMEAR 02/17/2026 02/17/2023 HIB VACCINE Aged Out No longer eligi ble based on patient's age to complete this topic HPV VACCINE Aged Out No longer eligi ble based on patient's age to complete this topic MENINGOCOCCAL (Group B) VACCINE Aged Out No longer eligible based on patient's age to complete this topic MENINGOCOCCAL VACCINE Aged Out No angélica lloyd eligible based on patient's age to complete this topic Procedures Procedure Name Priority Date/Time Associated Diagnosis Comments HEMOGLOBIN A1C - POINT OF CARE (AMB) [facility] Routine 06/09/2023 11:02 AM ELECTRICAL TEST ENGINEER Diabetes mellitus type 2, insulin dependent (HCC) MICROALB/CREAT RATIO URINE RANDOM PANEL Routine 01/28/2022 1:09 PM CDT Diabetes mellitus type 2, insulin dependent (HCC) COMPREHENSIVE METABOLIC PANEL Routine 01/28/2022 1:09 PM CDT Diabetes mellitus type 2, insulin dependent (HCC) from Last 3 Months or Most Recently Relevant to Health Maintenance Results * HEMOGLOBIN A1C - POINT OF CARE (AMB) [facility] (06/09/2023 11:02 AM ELECTRICAL TEST ENGINEER) Hemoglobin A1c POCT 11.9 % [address] BLOOD SPECIMEN / Unknown 06/09/2023 11:02 AM ELECTRICAL TEST ENGINEER Arelis Argueta MD LAB - POINT OF CARE ORDERABLES Performing Organization Address [facility] Co de Phone Number [address], [place] [address], [facility] [phone] * MICROALB/CREAT RATIO URINE RANDOM PANEL (01/28/2022 1:09 PM CDT) Albumin Random Urine 6.3 Not Established ug/mL 01/28/2022 1:54 PM CDT [facility] Creatinine Urine 54 Not Established mg/dL 01/28/2022 1:54 PM CDT [facility] Urine Albumin/Creati nine Ratio 12 <30 mg/g 01/28/2022 1:54 PM CDT [facility] Urine URINE SPECIMEN OBTAINED BY CLEAN CATCH PROCEDURE / Unknown Collection / Unknown 01/28/2022 1:09 PM CDT 01/28/2022 1:29 PM CDT Emma Vieira MD LAB - URINE CHEMISTR Y ORDERABLES [facility] [address] [place] [address], [facility] [phone] * (ABNORMAL) COMPREHENSIVE METABOLIC PANEL (01/28/2022 1:09 PM [facility]) BUN 9 7 - 26 mg/dL 01/28/2022 2:02 PM [facility] Creatinine 0.50(L) 0.56 - 0.96 mg/dL 01/28/2022 2:02 PM [facility] Sodium 142 136 - 145 mmol/L 01/28/2022 2:02 PM [facility] Potassium 3.7 3.5 - 4.5 mmol/L 01/28/2022 2:02 PM [facility] Chloride 102 98 - 107 mmol/L 01/28/2022 2:02 PM [facility] CO2 27 22 - 29 mmol/L 01/28/2022 2:02 PM [facility] Glucose 97 70 - 115 mg/dL 01/28/2022 2:02 PM [facility] Calcium 9.6 8.4 - 10.2 mg/dL 01/28/2022 2:02 PM [facility] Protein Total 7.5 6.0 - 8.3 g/dL 01/28/2022 2:02 PM [facility] Albumin 4.1 3.4 - 5.0 g/dL 01/28/2022 2:02 PM [facility] Bilirubin Total 0.6 0.2 - 1.2 mg/dL 01/28/2022 2:02 PM [facility] Alkaline Phosphatase 65 40 - 150 U/L 01/28/2022 2:02 PM [facility] ALT 17 5 - 55 U/L 01/28/2022 2:02 PM [facility] AST 16 5 - 34 U/L 01/28/2022 2:02 PM [facility] Anion Gap 17 8 - 18 01/28/2022 2:02 PM [facility] BUN/Creatinine Ratio 18 7 - 23 01/28/2022 2:02 PM [facility] Osmolality Calculated 293 270 - 300 mOsm/kg 01/28/2022 2:02 PM CDT [facility] Albumin/Globulin Ratio 1.2 1.1 - 2.3 01/28/2022 2:02 PM CDT [facility] eGFR by CKD-EPI >90 >=90 mL/min/1.7 3 m2 01/28/2022 2:02 PM CDT [facility] Blood BLOOD SPECIMEN / Unknown Lab Venipuncture / Unknown 01/28/2022 1:09 PM CDT 01/28/2022 1:33 PM CDT Emma Vieira MD LAB - CHEMISTRY [facility] [place] Organization Address City/State/ZIP Co de Phone Number [facility] [address] [place] [address], [facility] [phone] from Last 3 Months or Most Recently Relevant to Health Maintenance Care Teams Medical Record Clerk Relationship Specialty Start Date End Date Luis M Kirkpatrick MD [address] [place] [address] PCP - General 11/26/21 Luis M Kirkpatrick MD [address] [place] [address] 04/16/21 Lucho Casas MD [address] [place] [id number] 10/07/18
--- OUTSIDE RECORDS SUMMARY | 2024-08-11 10:03 | XMS_ITS | Referral Summary ---
Author Organization [facility] Address [address] [facility] [place] [address] Care Team Providers Care Senior Computer Specialist Name Role Phone Luis M Kirkpatrick MD Unavailable [phone] Lucho Casas MD Unavailable [phone] Luis M Kirkpatrick MD Primary Care Provider [phone] Source Comments [facility],non-owned Affiliates and Associated Physician Practices is amultiple site organization consisting of ambulatory clinics and hospital sitesin [place], [place], [place] and [place]. This disclosure is being madepursuant to the Care Everywhere program and may not contain all information available regarding this patient. Last updated 18.[facility] Allergies Active Allergy Reactions Criticality Noted Date Comments Sulfamethoxazole W-Trimethoprim Nausea and/or Vomiting 01/19/2019 Bee Venom Itching,Swelling 11/14/2011 Celecoxib Nausea and/or Vomiting 01/19/2019 Clindamycin Urticaria Medium 01/19/2019 Propoxyphene N-Apap Nausea and/or Vomiting 10/19 Propoxyphene N-Apap Vomiting 01/19/2019 Hydrocodone-Acetaminophen Nausea and/or Vomiting 11/14/2011 Wasp Venom Itching,Swelling 11/14/2011 Medications * Be aware that medications may not be up to date on this document. Always verify current medications with the patient. Medication Sig [...] RECOM-YU, QUADR. (FLUBLOCK QUADRIVALENT; 18Y+) (RIV4) 06/04/2021 Social History Tobacco Use Types Packs/Day Years [...] Comments Blood Pressure 146/85 09/15/2023 11:07 AM RUBBER CHEMIST Pulse 93 09/15/2023 11:07 AM RUBBER CHEMIST Temperature 36.5 ??C (97.7 ??F) 06/09/2023 10:[address] Respiratory Rate 18 06/09/2023 10:42 AM RUBBER CHEMIST Oxygen Saturation 96% 09/15/2023 11:07 AM RUBBER CHEMIST Inhaled Oxygen Concentration - - Weight 105.2 kg (232 lb) 09/15/2023 11:07 AM RUBBER CHEMIST Height 165.1 cm (5' 5 ) 09/15/2023 11:07 AM RUBBER CHEMIST Body Mass Index 38.61 09/15/2023 11:07 AM RUBBER CHEMIST Plan of Treatment Not on file Procedures Procedure Name Priority Date/Time Associated Diagnosis Comments HEMOGLOBIN A1C - POINT OF CARE (AMB) [facility] Routine 06/09/2023 11:02 AM RUBBER CHEMIST Diabetes mellitus type 2, insulin dependent (HCC) MICROALB/CREAT RATIO URINE RANDOM PANEL Routine 01/28/2022 1:09 PM CDT Diabetes mellitus type 2, insulin dependent (HCC) COMPREHENSIVE METABOLIC PANEL Routine 01/28/2022 1:09 PM CDT Diabetes mellitus type 2, insulin dependent (HCC) from Last 3 Months or Most Recently Relevant to Health Maintenance Results * HEMOGLOBIN A1C - POINT OF CARE (AMB) [facility] (06/09/2023 11:02 AM RUBBER CHEMIST) Hemoglobin A1c POCT 11.9 % [address] BLOOD SPECIMEN / Unknown 06/09/2023 11:02 AM RUBBER CHEMIST Arelis Argueta MD LAB - POINT OF CARE ORDERABLES Performing Organization Address [facility]/State/ZIP Co de Phone Number [address], [facility] [place] [address], [facility] [phone] * MICROALB/CREAT RATIO URINE RANDOM PANEL (01/28/2022 1:09 PM CDT) Albumin Random Urine 6.3 Not Established ug/mL 01/28/2022 1:54 PM CDT [facility] Creatinine Urine 54 Not Established mg/dL 01/28/2022 1:54 PM CDT [facility] Urine Albumin/Creati nine Ratio 12 <30 mg/g 01/28/2022 1:54 PM CDT [facility] Urine URINE SPECIMEN OBTAINED BY CLEAN CATCH PROCEDURE / Unknown Collection / Unknown 01/28/2022 1:09 PM CDT 01/28/2022 1:29 PM CDT Emma Vieira MD LAB - URINE CHEMISTR Y ORDERABLES [facility] [address] [place] [address], [facility] [phone] * (ABNORMAL) COMPREHENSIVE METABOLIC PANEL (01/28/2022 1:09 PM [facility]) BUN 9 7 - 26 mg/dL 01/28/2022 2:02 PM [facility] Creatinine 0.50(L) 0.56 - 0.96 mg/dL 01/28/2022 2:02 PM [facility] Sodium 142 136 - 145 mmol/L 01/28/2022 2:02 PM [facility] Potassium 3.7 3.5 - 4.5 mmol/L 01/28/2022 2:02 PM [facility] Chloride 102 98 - 107 mmol/L 01/28/2022 2:02 PM [facility] CO2 27 22 - 29 mmol/L 01/28/2022 2:02 PM [facility] Glucose 97 70 - 115 mg/dL 01/28/2022 2:02 PM [facility] Calcium 9.6 8.4 - 10.2 mg/dL 01/28/2022 2:02 PM [facility] Protein Total 7.5 6.0 - 8.3 g/dL 01/28/2022 2:02 PM [facility] Albumin 4.1 3.4 - 5.0 g/dL 01/28/2022 2:02 PM [facility] Bilirubin Total 0.6 0.2 - 1.2 mg/dL 01/28/2022 2:02 PM [facility] Alkaline Phosphatase 65 40 - 150 U/L 01/28/2022 2:02 PM [facility] ALT 17 5 - 55 U/L 01/28/2022 2:02 PM [facility] AST 16 5 - 34 U/L 01/28/2022 2:02 PM [facility] Anion Gap 17 8 - 18 01/28/2022 2:02 PM [facility] BUN/Creatinine Ratio 18 7 - 23 01/28/2022 2:02 PM CDT [facility] Osmolality Calculated 293 270 - 300 mOsm/kg 01/28/2022 2:02 PM CDT [facility] Albumin/Globulin Ratio 1.2 1.1 - 2.3 01/28/2022 2:02 PM CDT [facility] eGFR by CKD-EPI >90 >=90 mL/min/1.7 3 m2 01/28/2022 2:02 PM CDT [facility] Blood BLOOD SPECIMEN / Unknown Lab Venipuncture / Unknown 01/28/2022 1:09 PM CDT 01/28/2022 1:33 PM CDT Emma Vieira MD LAB - CHEMISTRY [facility]AN [place] Organization Address City/State/ZIP Co de Phone Number [facility] [address] [place] [address], [facility] [phone] from Last 3 Months or Most Recently Relevant to Health Maintenance Care Teams Senior Computer Specialist Relationship Specialty Start Date End Date Luis M Kirkpatrick MD [address] [facility] [address] [place] [address] PCP - General 11/26/21 Luis M Kirkpatrick MD [address] [place] [address] 04/16/21 Lucho Casas MD [address] [place] [address] 10/07/18
--- OUTSIDE RECORDS SUMMARY | 2024-08-11 10:04 | XMS_ITS | Encounter Summary ---
Author Organization [facility] Address [address] [facility] [place] [address] Care Team Providers Care Multiplex Operator Name Role Phone Luis M Kirkpatrick MD Primary Care Provider [phone] Lucho Casas MD Primary Care Provider [phone] Luis M Kirkpatrick MD Unavailable [phone] Lucho Casas MD Unavailable [phone] Luis M Kirkpatrick MD Primary Care Provider [phone] Reason for Visit * Reason Onset Date Comments Medication Prior Auth Request 01/24/2019 Encounter Details Date Type Department Care Team (Late st Contact Info) Description 01/24/2019 Telephone [facility] [address] [place] [address] Timo Us MD [address] [place] [address] Medication Prior Auth Request Social History Tobacco Use Types Packs/Day Years Used Date Smoking Tobacco: Never Smokeless Tobacco: Never Alcohol Use Standard Drinks/Week Comments Yes 0 (1 standard drink = 0.6 oz pur e alcohol) Sex and Gender Information Value Date Recorded Sex Assigned at Not on file Gender Identity Not on file Sexual Orientation Not on file documented as of this encounter Miscellaneous Notes * Telephone Encounter - TalGurpreetEstuardo Mac - 01/24/2019 10:44 AM CDT Spoke to pt's INS and they stated that the only alternative for Bydureon that is covered through the pt's INS is Byetta, but it only comes in 5mcg and 10mcg pens and still requires a PA for this Rx as well. [facility] documented in this encounter Plan of Treatment Not on file documented as of this encounter Visit Diagnoses Not on filedocumented in this encounter Care Teams Multiplex Operator Relationship Specialty Start Date End Date Luis M Kirkpatrick MD [address] [place] [address] PCP - General 10/07/18 04/15/21 Lucho Casas MD [address] [facility] [address] [place] [address] PCP - General 04/16/21 11/25/21 Luis M Kirkpatrick MD [address] [place] [address] PCP - General 11/26/21 Luis M Kirkpatrick MD [address] [place] [address] 04/16/21 Lucho Casas MD [address] [place] [address] 10/07/18 documented as of this encounter
--- OUTSIDE RECORDS SUMMARY | 2024-08-11 10:04 | XMS_ITS | Encounter Summary ---
Author Organization [facility] Address [address] [facility] [place] [address] Care Team Providers Care Industry Consultant Name Role Phone Luis M Kirkpatrick MD Unavailable [phone] Lucho Casas MD Unavailable [phone] Luis M Kirkpatrick MD Primary Care Provider [phone] Encounter Details Date Type Department Care Team (Late st Contact Info) Description 04/14/2023 Telephone [facility] - Centralized Scheduling [address] [place] [phone] Arelis Argueta MD [address] [place] [phone] Social History Tobacco Use Types Packs/Day Years Used Date Smoking Tobacco: Some Days Cigarettes 0.5 30 Smokeless Tobacco: Former Alcohol Use Standard Drinks/Week Comments Yes 0 (1 standard drink = 0.6 oz pur e alcohol) socially Sex and Gender Information Value Date Recorded Sex Assigned at Not on file Gender Identity Not on file Sexual Orientation Not on file documented as of this encounter Plan of Treatment Not on file documented as of this encounter Visit Diagnoses Not on filedocumented in this encounter Care Teams Industry Consultant Relationship Specialty Start Date End Date Luis M Kirkpatrick MD [address] [facility] [address] [place] [address] PCP - General 11/26/21 Luis M Kirkpatrick MD [address] [place] [address] 04/16/21 Lucho Casas MD [address] [place] [address] 10/07/18 documented as of this encounter
--- OUTSIDE RECORDS SUMMARY | 2024-08-11 10:04 | XMS_ITS | Encounter Summary ---
Author Organization [facility] Health Address [address] [place] [address] Care Team Providers Care Licensed Chemical Spray Technician Name Role Phone Luis M Kirkpatrick MD Unavailable [phone] Lucho Casas MD Unavailable Luis M Kirkpatrick MD Primary Care Provider [phone] Encounter Details Date Type Department Care Team (Late st Contact Info) Description 05/13/2023 Telephone [facility] - Endocrinology [address] [place] [address], [facility] [address] Arelis Argueta MD [address] [place] [address] [place] [id number] Social History Tobacco Use Types Packs/Day Years [...] encounter Miscellaneous Notes * Telephone Encounter - Lia Grier LPN - 05/21/2023 1:49 PM CDT Attempt 3rd call to patient, no answer. VM full and unable to leave message * Telephone Encounter - Lia Grier LPN - 05/20/2023 2:20 PM CDT Called patient, 2nd attempt. No answer, left vm * Telephone Encounter - Lia Grier LPN - 05/19/2023 1:30 PM CDT Placed call to patient, no answer. 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 Can you please let her know. If she is not using pump, she needs to be on Lispro and Lantus. I have put an order for Lantus to be taken 60 units at bedtime. She can continue Lispro but 20 units with each meals I have increased trulicity dose to 1.5 mg weekly Arelis Argueta MD Assistance Professor Department of Endocrinology, Diabetes and Metabolism. * Telephone Encounter - Lia Grier LPN - 05/13/2023 9:28 AM CDT Returned call to patient regarding blood sugars. Patient stated that since Thursday her sugars have been ranging from 166-450 with the highest being on Tuesday 05/08, sugar was 588. Patient stated that she is not using her pump, she is only giving bolus dosing with Lispro pen. Patient stated she has been giving herself 30 units. Is also on Trulicity 1x per week and metformin daily, no doses of either medication missed. Patient advised that she has a new abscess In her groin and thought maybe that had a factor in her bs. Patient advised she has also been very nauseous lately. * Telephone Encounter - Lia Grier LPN - 05/13/2023 9:17 AM CDT No patient phone calls have been documented that she has been calling in about her bs. Has only been calling in regarding insulins * Telephone Encounter - Tarsha Cedillo - 05/13/2023 8:45 AM CDT Current Provider name: Dr. Kendall Infante Reason for call: Ms Whit Segovia has an appt 06/09/23 but her blood levels have been going up and down over the last two weeks with the highest reading being 588 and the lowest reading was 74 on Thursday. This morning her reading is 342. She would like a call from the nurse as soon as possible. She had been calling in and did leave message. Please call Thanks so much. Patient Call Back number: [phone] documented in this encounter Plan of Treatment Not on file documented as of this encounter Visit Diagnoses Not on filedocumented in this encounter Care Teams Licensed Chemical Spray Technician Relationship Specialty Start Date End Date Luis M Kirkpatrick MD [address] [address] PCP - General 11/26/21 Luis M Kirkpatrick MD [address] [place] [address] 04/16/21 Lucho Casas MD [address] [place] [address] 10/07/18 documented as of this encounter
--- OUTSIDE RECORDS SUMMARY | 2024-08-11 10:04 | XMS_ITS | Patient Health Summary ---
Author Organization [facility] Address [address] [place] [address] Care Team Providers Care Manager Land Name Role Phone Luis M Kirkpatrick MD Unavailable [phone] Lucho Casas MD Unavailable [phone] Luis M Kirkpatrick MD Primary Care Provider [phone] Note from [facility],non-owned Affiliates and Associated Physician Practices is amultiple site organization consisting of ambulatory clinics and hospital sitesin [place], [place], [place] and [place]. This disclosure is being madepursuant to the Care Everywhere program and may not contain all information available regarding this patient. Last updated 18.[facility] Allergies * Sulfamethoxazole W-Trimethoprim(Nausea and/or Vomiting) * Bee Venom(Itching,Swelling) * Celecoxib(Nausea and/or Vomiting) * Clindamycin(Urticaria) -Medium Criticality * Propoxyphene N-Apap(Nausea and/or Vomiting) * Propoxyphene N-Apap(Vomiting) * Hydrocodone-Acetaminophen(Nausea and/or Vomiting) * Wasp Venom(Itching,Swelling) Medications * Be aware that medications may not be up to date on this document. Alwaysverify current medications with the patient. * Insulin Pump Accessories MISC * FLUoxetine (PROZAC) 20 MG capsule(Started 01/04/2019) Take 1 (one) capsule by mouth once daily * gabapentin (NEURONTIN) 300 MG capsule(Started 06/04/2021) Take 1 (one) capsule by mouth 2 times daily as needed 3 refills by 06/04/2022 * Eliquis 5 MG tablet(Started 03/24/2023) Take 1 (one) tablet by mouth every 12 hours * sotalol (Betapace) 80 MG tablet(Started 03/24/2023) Take 1 (one) tablet by mouth every 12 hours * lisinopril (Prinivil; Zestril) 10 MG tablet(Started 04/07/2023) Take 1 (one) tablet by mouth once daily 3 refills by 04/06/2024 * blood glucose test strip(Started 05/29/2023) Use 1 (one) strip 4 times daily - before meals & nightly One touch ultra test strip. May substitute 11 refills by 05/28/2024 * insulin pen needle (B-D UF III MINI PEN NEEDLES) 31G X 5 MM needle(Started 05/29/2023) by Injection route once daily May substitute 11 refills by 05/28/2024 * albuterol HFA (Proventil; Ventolin; Proair) 108 (90 Base) MCG/ACT inhaler INHALE 1 TO 2 PUFFS BY MOUTH EVERY 6 TO 8 HOURS NEEDED * insulin glargine (Lantus/Semglee) 100 units/mL pen(Started 06/09/2023) Inject 40 (forty) Units subcutaneously 2 times daily 3 refills by 06/08/2024 * dulaglutide (Trulicity) 3 MG/0.5ML injection(Started 08/17/2023) Inject 0.5 mL subcutaneously every 7 days 3 refills by 08/16/2024 * metFORMIN (Glucophage) 1000 MG tablet(Started 08/17/2023) Take 1 (one) tablet by mouth 2 times daily 11 refills by 08/16/2024 * simvastatin (Zocor) 40 MG tablet(Started 08/17/2023) Take 1 (one) tablet by mouth at bedtime 3 refills by 08/16/2024 * insulin lispro (HumaLOG;ADMelog) 100 UNIT/ML pen(Started 08/27/2023) INJECT 22 UNITS UNDER THE SKIN THREE TIMES DAILY BEFORE BREAKFAST, LUNCH, AND BEDTIME 3 refills by 08/26/2024 * tirzepatide (Mounjaro) 5 MG/0.5ML injection(Started 09/15/2023) Inject 5 (five) mg subcutaneously every 7 days 3 refills by 09/14/2024 Active Problems Problem Noted Date Diagnosed Date [...] 19 Type 2 diabetes mellitus 11/14/2011 Immunizations * iNFLUENZA VACCINE, RECOM-YU, QUADR. (FLUBLOCK QUADRIVALENT; 18Y+) (RIV4)(Given 06/04/2021) Social History Tobacco Use Types Packs/Day Years [...] Comments Blood Pressure 146/85 09/15/2023 11:07 AM SLASHER RUNNER Pulse 93 09/15/2023 11:07 AM SLASHER RUNNER Temperature 36.5 ??C (97.7 ??F) 06/09/2023 10:[address] Respiratory Rate 18 06/09/2023 10:42 AM SLASHER RUNNER Oxygen Saturation 96% 09/15/2023 11:07 AM SLASHER RUNNER Inhaled Oxygen Concentration - - Weight 105.2 kg (232 lb) 09/15/2023 11:07 AM SLASHER RUNNER Height 165.1 cm (5' 5 ) 09/15/2023 11:07 AM SLASHER RUNNER Body Mass Index 38.61 09/15/2023 11:07 AM SLASHER RUNNER Procedures * HEMOGLOBIN A1C - POINT OF CARE (AMB) [facility](Performed 06/09/2023) Performed for Diabetes mellitus type 2, insulin dependent (HCC) * MICROALB/CREAT RATIO URINE RANDOM PANEL(Performed 01/28/2022) Performed for Diabetes mellitus type 2, insulin dependent (HCC) * LIPID PROFILE(Performed 01/28/2022) Performed for Diabetes mellitus type 2, insulin dependent (HCC) * COMPREHENSIVE METABOLIC PANEL(Performed 01/28/2022) Performed for Diabetes mellitus type 2, insulin dependent (HCC) * HEMOGLOBIN A1C - POINT OF CARE (AMB) [facility](Performed 01/28/2022) Performed for Diabetes mellitus type 2, insulin dependent (HCC) * GLUCOSE - POINT OF CARE (AMB) [facility](Performed 06/04/2021) Performed for Diabetes mellitus type 2, insulin dependent (HCC) * GLUCOSE - POINT OF CARE (AMB) [facility](Performed 06/04/2021) Performed for Diabetes mellitus type 2, insulin dependent (HCC) * HEMOGLOBIN A1C - POINT OF CARE (AMB) [facility](Performed 06/04/2021) Performed for Diabetes mellitus type 2, insulin dependent ([facility]) * HEMOGLOBIN A1C - POINT OF CARE (AMB) [facility](Performed 01/29/2021) Performed for DM (diabetes mellitus) type II, controlled, with peripheral vascular disorder ([facility]) * HEMOGLOBIN A1C - POINT OF CARE (AMB) [facility](Performed 07/16/2020) Performed for Type 2 diabetes mellitus without complication, with long-term current use of insulin ([facility]) * HEMOGLOBIN A1C - POINT OF CARE (AMB) [facility](Performed 04/03/2020) Performed for DM (diabetes mellitus) type II, controlled, with peripheral vascular disorder ([facility]) * URINALYSIS MICROSCOPIC ONLY REFLEXED(Performed 12/27/2019) Performed for Type 2 diabetes mellitus without complication, without long-term current use of insulin ([facility]) * HEMOGLOBIN A1C(Performed 12/27/2019) Performed for Type 2 diabetes mellitus without complication, without long-term current use of insulin ([facility]) * URINALYSIS W/MICROSCOPIC REFLEX TO CULTURE(Performed 12/27/2019) Performed for Type 2 diabetes mellitus without complication, without long-term current use of insulin ([facility]) * COMPREHENSIVE METABOLIC PANEL(Performed 12/27/2019) Performed for Type 2 diabetes mellitus without complication, without long-term current use of insulin (HCC) * HEMOGLOBIN A1C - POINT OF CARE (AMB) [facility](Performed 05/26/2019) Performed for Type 2 diabetes mellitus without complication, without long-term current use of insulin ([facility]) * HEMOGLOBIN A1C - POINT OF CARE (AMB) [facility](Performed 01/19/2019) Performed for DM (diabetes mellitus) type II, controlled, with peripheral vascular disorder ([facility]) * LAB RESULTS ORDER(Performed 04/06/2012) * IMAGING/RADIOLOGY/XRAY RESULTS ORDER(Performed 03/26/2012) * CARDIAC EKG ORDER(Performed 03/26/2012) Results * HEMOGLOBIN A1C - POINT OF CARE (AMB) [facility] (06/09/2023 11:02 AM SLASHER RUNNER) Only the most recent of8 resultswithin the time period is included. Hemoglobin A1c POCT 11.9 % [address] BLOOD SPECIMEN / Unknown 06/09/2023 11:02 AM SLASHER RUNNER Arelis Argueta MD LAB - POINT OF CARE ORDERABLES Performing Organization Address [facility]/State/ZIP Co de Phone Number [address], [facility] [place] [address], [facility] [phone] * MICROALB/CREAT RATIO URINE RANDOM PANEL (01/28/2022 1:09 PM CDT) Albumin Random Urine 6.3 Not Established ug/mL 01/28/2022 1:54 PM CDT [facility] Creatinine Urine 54 Not Established mg/dL 01/28/2022 1:54 PM CDT [facility] Urine Albumin/Creati nine Ratio 12 <30 mg/g 01/28/2022 1:54 PM CDT [facility] Urine URINE SPECIMEN OBTAINED BY CLEAN CATCH PROCEDURE / Unknown Collection / Unknown 01/28/2022 1:09 PM CDT 01/28/2022 1:29 PM CDT Emma Vieira MD LAB - URINE CHEMISTR Y ORDERABLES [facility] [address] [place] [address], [facility] [phone] * (ABNORMAL) COMPREHENSIVE METABOLIC PANEL (01/28/2022 1:09 PM [facility]) Only the most recent of2 resultswithin the time period is included. BUN 9 7 - 26 mg/dL 01/28/2022 2:02 PM [facility] Creatinine 0.50(L) 0.56 - 0.96 mg/dL 01/28/2022 2:02 PM [facility] Sodium 142 136 - 145 mmol/L 01/28/2022 2:02 PM [facility] Potassium 3.7 3.5 - 4.5 mmol/L 01/28/2022 2:02 PM [facility] Chloride 102 98 - 107 mmol/L 01/28/2022 2:02 PM [facility] CO2 27 22 - 29 mmol/L 01/28/2022 2:02 PM [facility] Glucose 97 70 - 115 mg/dL 01/28/2022 2:02 PM [facility] Calcium 9.6 8.4 - 10.2 mg/dL 01/28/2022 2:02 PM [facility] Protein Total 7.5 6.0 - 8.3 g/dL 01/28/2022 2:02 PM [facility] Albumin 4.1 3.4 - 5.0 g/dL 01/28/2022 2:02 PM [facility] Bilirubin Total 0.6 0.2 - 1.2 mg/dL 01/28/2022 2:02 PM [facility] Alkaline Phosphatase 65 40 - 150 U/L 01/28/2022 2:02 PM [facility] ALT 17 5 - 55 U/L 01/28/2022 2:02 PM [facility] AST 16 5 - 34 U/L 01/28/2022 2:02 PM [facility] Anion Gap 17 8 - 18 01/28/2022 2:02 PM [facility] BUN/Creatinine Ratio 18 7 - 23 01/28/2022 2:02 PM [facility] Osmolality Calculated 293 270 - 300 mOsm/kg 01/28/2022 2:02 PM [facility] Albumin/Globulin Ratio 1.2 1.1 - 2.3 01/28/2022 2:02 PM [facility] eGFR by CKD-EPI >90 >=90 mL/min/1.7 3 m2 01/28/2022 2:02 PM [facility] Blood BLOOD SPECIMEN / Unknown Lab Venipuncture / Unknown 01/28/2022 1:09 PM CDT 01/28/2022 1:33 PM CDT Emma Vieira MD LAB - CHEMISTRY [facility] [place] [address] [place] [address], [facility] [phone] * (ABNORMAL) LIPID PROFILE (01/28/2022 1:09 PM CDT) Cholesterol Total 203(H) <200 mg/dL 01/28/2022 2:02 PM [facility] HDL 54 >40 mg/dL 01/28/2022 2:02 PM [facility] Comment: ATP III Classification of HDL Cholesterol: ? <40 mg/dL: ??Considered a major risk factor. ? >60 mg/dL: ??Considered a negative risk factor. ? LDL Calculated 113(H) <100 mg/dL 01/28/2022 2:02 PM [facility] Comment: ATP III Classification of LDL Cholesterol: ?<100 mg/dL: ??Optimal ? 100 - 129 mg/dL: ??Near Optimal/Above Optimal ? 130 - 159 mg/dL: ??Borderline High ? 160 - 189 mg/dL: ??High ?>190 mg/dL: ??Very High ? Triglycerides 181(H) <150 mg/dL 01/28/2022 2:02 PM CDT [facility] Comment: ATP III Classification of Triglycerides: ?<150 mg/dL: ??Normal ? 150 - 199 mg/dL: ??Borderline High ? 200 - 400 mg/dL: ??High ?>500 mg/dL: ??Very High Blood BLOOD SPECIMEN / Unknown Lab Venipuncture / Unknown 01/28/2022 1:09 PM CDT 01/28/2022 1:33 PM CDT Emma Vieira MD LAB - CHEMISTRY [facility] [place] [facility] [address] [place] [address], [facility] [phone] * (ABNORMAL) GLUCOSE - POINT OF CARE (AMB) [facility] (06/04/2021) Only the most recent of2 resultswithin the time period is included. Glucose WB/POC 121(A) 70 - 115 mg/dL Blood BLOOD SPECIMEN / Unknown 06/04/2021 Emma Vieira MD LAB - POINT OF CARE ORDERABLES * URINALYSIS MICROSCOPIC ONLY REFLEXED (12/27/2019 12:11 PM CDT) WBC UA 0-5 0 - 5 /hpf [facility] INSURANCE BILL RBC UA 0-2 0 - 2 /hpf [facility] INSURANCE BILL Epithelial Cells (non renal) 0-10 0 - 10 /hpf [facility] INSURANCE BILL Epithelial Cells (renal) NOT NEEDED [facility] INSURANCE BILL Comment:Ancillary determined the test is not needed. Casts ua NOT NEEDED [facility] INSURANCE BILL Comment:Ancillary determined the test is not needed. Casts UA NOT NEEDED [facility] INSURANCE BILL Comment:Ancillary determined the test is not needed. Crystals UA NOT NEEDED [facility] INSURANCE BILL Comment:Ancillary determined the test is not needed. Crystals UA NOT NEEDED [facility] INSURANCE BILL Comment:Ancillary determined the test is not needed. Mucus UA NOT NEEDED [facility] INSURANCE BILL Comment:Ancillary determined the test is not needed. Bacteria UA Few None seen/Few [facility] INSURANCE BILL Yeast UA NOT NEEDED [facility] INSURANCE BILL Comment:Ancillary determined the test is not needed. Trichomonas UA NOT NEEDED [facility] INSURANCE BILL Comment:Ancillary determined the test is not needed. Comment Urine NOT NEEDED [facility] INSURANCE BILL Comment:Ancillary determined the test is not needed. 12/27/2019 12:1 1 PM CDT 12/27/2019 Narrative Resulting Agency Comment Lab Testing performed at: [facility] ??[facility] [phone] Timo Us MD LAB - URINALYSIS ORD ERABLES [facility] INSURANCE BILL [address] [place] [address] * (ABNORMAL) URINALYSIS W/MICROSCOPIC REFLEX TO CULTURE (12/27/2019 12:11 PM CDT) Specific [place] UA 1.029 1.005 - 1.030 [facility] INSURANCE BILL pH UA 6.5 5.0 - 7.5 [facility] INSURANCE BILL Color UA Yellow Yellow [facility] INSURANCE BILL Appearance Clear Clear [facility] INSURANCE BILL Leukocyte UA Negative Negative [facility] INSURANCE BILL Protein UA Negative Negative/Tra ce [facility] INSURANCE BILL Glucose UA 3+(A) Negative [facility] INSURANCE BILL Ketone UA Negative Negative [facility] INSURANCE BILL Occult Blood Urine Trace(A) Negative [facility] INSURANCE BILL Bilirubin UA Negative Negative [facility] INSURANCE BILL Urobilinogen 0.2 0.2 - 1.0 mg/dL [facility] INSURANCE BILL Nitrite UA Negative Negative [facility] INSURANCE BILL Microscopic Examination Urine See below: [facility] INSURANCE BILL Comment:Microscopic was irish cated and was performed. Microscopic Examination Urine NOT NEEDED [facility] INSURANCE BILL Comment:Ancillary determined the test is not needed. Urinalysis Reflex [facility] INSURANCE BILL Comment:This specimen will n ot reflex to a Urine Culture. Urine MID-STREAM URINE SPECIMEN / Unknown 12/27/2019 12:11 PM CDT 12/27/2019 Narrative Resulting Agency Comment Lab Testing performed at: [employer] [address] ??[facility] [phone] Timo Us MD LAB - URINALYSIS ORD ERABLES Performing Organization Address [facility]/ZIP Co de Phone Number [facility] [address] [place] [address] * (ABNORMAL) HEMOGLOBIN A1C (12/27/2019 12:11 PM CDT) Hemoglobin A1c 9.2(H) 4.8 - 5.6 % [facility] INSURANCE BILL Comment: ? . ? Prediabetes: 5.7 - 6.4 ? Diabetes: >6.4 ? Glycemic control for adults with diabetes: <7.0 Blood BLOOD SPECIMEN / Unknown 12/27/2019 12:11 PM CDT 12/27/2019 Narrative Resulting Agency Comment Lab Testing performed at: [facility] [address] ??[facility] [id number] Timo Us MD LAB - CHEMISTRY ORDE RABLES Performing Organization Address [facility] de Phone Number [facility] [address] [place] [address] * LAB RESULTS ORDER (04/06/2012 1:28 PM CDT) Narrative Transcriptions Document, Scanned - 03/26/2012 2:24 PM CDT Document, Scanned - 04/06/2012 1:28 PM CDT Scanned Document LAB - THERAPEUTIC DR ESTEVAN MONITORING ORDERABLES * IMAGING/RADIOLOGY/XRAY RESULTS ORDER (03/26/2012 2:25 PM CDT) Anatomical Region Laterality Modality Other Narrative Transcriptions Document, Scanned - 03/26/2012 2:24 PM CDT Scanned Document IMAGING * CARDIAC EKG ORDER (03/26/2012 2:25 PM CDT) Narrative Transcriptions Document, Scanned - 03/26/2012 2:24 PM CDT Scanned Document CARDIAC SERVICES ORD [facility] Care Teams Manager Land Relationship Specialty Start Date End Date Luis M Kirkpatrick MD [address] [place] [address] PCP - General 11/26/21 Luis M Kirkpatrick MD [address] [place] [address] 04/16/21 Lucho Casas MD [address] [place] [address] 10/07/18
--- OUTSIDE RECORDS SUMMARY | 2024-08-11 10:04 | XMS_ITS | Encounter Summary ---
Author Organization [facility] Health Address [address] [facility] [place] [address] Care Team Providers Care Canvas Goods Maker Name Role Phone Luis M Kirkpatrick MD Unavailable [phone] Lucho Casas MD Unavailable [phone] Luis M Kirkpatrick MD Primary Care Provider [phone] Reason for Visit * Reason Onset Date Comments MEDICATION REFILL 08/04/2022 Encounter Details Date Type Department Care Team (Late st Contact Info) Description 08/04/2022 Refill [facility] [address] [place] [id number] Db Sue MD [address] [place] [address] MEDICATION REFILL Social History Tobacco Use Types Packs/Day Years [...] encounter Miscellaneous Notes * Telephone Encounter - Silva Belle LPN - 08/04/2022 9:59 AM CST ERROR RY DRILLER PROSPECTING documented in this encounter Plan of Treatment Not on file documented as of this encounter Visit Diagnoses Diagnosis Diabetes mellitus type 2, insulin dependent (HCC)- Primary Type II or unspecified type diabetes mellitus without mention of complication, not stated as uncontrolled documented in this encounter Care Teams Canvas Goods Maker Relationship Specialty Start Date End Date Luis M Kirkpatrick MD [address] [place] [address] PCP - General 11/26/21 Luis M Kirkpatrick MD [address] [place] [address] 04/16/21 Lucho Casas MD [address] [place] [address] 10/07/18 documented as of this encounter
--- OUTSIDE RECORDS SUMMARY | 2024-08-11 10:04 | XMS_ITS | Encounter Summary ---
Author Organization [facility] Health Address [address] [place] [address] Care Team Providers Care Chief Clerk Name Role Phone Luis M Kirkpatrick MD Unavailable [phone] Lucho Casas MD Unavailable [phone] Luis M Kirkpatrick MD Primary Care Provider [phone] Encounter Details Date Type Department Care Team (Late st Contact Info) Description 04/23/2023 Telephone [facility] - Centralized Scheduling [address] [place] [id number] Arelis Argueta MD [address] [address] Social History Tobacco Use Types Packs/Day Years [...] on filedocumented in this encounter Care Teams Chief Clerk Relationship Specialty Start Date End Date Luis M Kirkpatrick MD [address] [facility] [address] [place] [address] PCP - General 11/26/21 Luis M Kirkpatrick MD [address] [place] [address] 04/16/21 Lucho Casas MD [address] [place] [address] 10/07/18 documented as of this encounter
--- OUTSIDE RECORDS SUMMARY | 2024-08-11 10:04 | XMS_ITS | Referral Summary ---
Author Organization [facility] Physician Office Building [address] [place] [id number] Care Team Providers Care Second Watch Sergeant Name Role Phone Juan Pablo Forbes DO Unavailable [phone] Connor Barton MD Unavailable [phone] No, Physician Primary Care Provider [phone] Allergies Active Allergy Reactions Criticality Noted Date Comments Bacitracin Vomiting Low 03/16/2018 Sulfamethoxazole-Trimethoprim Diarrhea,Vomiting Low 05/13/2022 Celecoxib Nausea & Vomiting Low 03/16/2018 Clindamycin Hives Medium 03/16/2018 Propoxyphene-Acetaminophen Nausea & Vomiting Low Medications blood glucose diagnostic stripIndication s:Type 2 diabetes mellitus with hyperglycemia, with long-term current use of insulin ([facility]) accu-check guide test strips test blood sugars five times every day dx:E11.65 insulin dependent 150 each 3 8 Active FLUoxetine (PROzac) 20 mg capsule Take 1 capsule (20 mg total) by mouth 2 (two) times a day 0 8 Active metFORMIN (GLUCOPHAGE) 1,000 mg tabletIndicatio ns:Type 2 diabetes mellitus with hyperglycemia, with long-term current use of insulin ([facility]) TAKE 1 TABLET(1000 MG) BY MOUTH TWICE DAILY WITH MEALS 60 tablet 9 Active insulin glargine 100 unit/mL (3 mL) pen for injection Inject 44 Units under the skin 2 (two) times a day Active Eliquis 5 mg tablet Take 1 tablet (5 mg total) by mouth every 12 (twelve) hours Active Trulicity 1.5 mg/0.5 mL pen injector Inject 0.5 mL (1.5 mg total) under the skin once a week Weekly on Thursday 3 Active lisinopriL (PRINIVIL,ZESTR IL) 10 mg tablet Take 1 tablet (10 mg total) by mouth daily Active simvastatin (ZOCOR) 40 mg tablet Take 1 tablet (40 mg total) by mouth nightly at bedtime. 3 Active sotaloL (BETAPACE) 80 mg tablet Take 1 tablet (80 mg total) by mouth every 12 (twelve) hours Active insulin lispro (HumaLOG, ADMELOG) 100 unit/mL pen for injection Inject 22 Units under the skin 3 (three) times a day with meals (plus blood glucose mg/dL 150-199: 2 units, 200-249: 4 units, 250-299: 6 units, 300-349: 8 units, 350 or greater: 10 units. Notify provider for blood glucose greater than 299 mg/dL. Max daily dose 90) Refer to After Visit Summary for Sliding Scale Insulin Instructions. 15 mL 12 4 08/15/19 25 Active Active Problems Problem Noted Date Diagnosed Date Diabetic ketoacidosis withou t coma associated with type 2 diabetes mellitus ([facility]) 08/14/2023 Cellulitis of female genitalia 02/16/2023 Proteinuria due to type 2 diabetes mellitus ([facility]) 04/14/2018 Type 2 diabetes mellitus wit h hyperglycemia, with long-term current use of insulin 03/17/2018 Assessment & Plan (08/20/2018 4:20 PM SENIOR ENGINEER): Diabetes is improving with treatment. Reviewed insulin pump download Improving BS control Low BS morning time pre lunch mostly Pt BS in office - 75, Pt recovered with glucose tabs and juice decreased basal rates from 7 : 30 am to 12 : 30 pm To 3 u/hr - advised pt to check BS more often advised to come for a pump download in 6 weeks and f/w in office in 3 months Continue current treatment regimen. Reminded to bring in blood sugar diary at next visit. Dietary recommendations for ADA diet. Regular aerobic exercise. Discussed ways to avoid symptomatic hypoglycemia. Discussed sick day management. Discussed foot care. Reminded to get yearly retinal exam. Diabetes will be reassessed in 2 months . Assessment & Plan (06/21/2018 7:03 AM SENIOR ENGINEER): Diabetes is improving with treatment. Reviewed insulin pump download Improving BS control Occasional post prandial hyperglycemia noted post lunch and dinner Advised to work on portion carb control and increase physical activity Advised to establish PCP SHE and also see dermatology for LE rash Continue current treatment regimen. Reminded to bring in blood sugar diary at next visit. Dietary recommendations for ADA diet. Regular aerobic exercise. Discussed ways to avoid symptomatic hypoglycemia. Discussed sick day management. Discussed foot care. Reminded to get yearly retinal exam. Diabetes will be reassessed in 2 months . Assessment & Plan (05/23/2018 8:52 PM SENIOR ENGINEER): Diabetes is improving with treatment. A1c - 8.2 % Reviewed Insulin pump download Pt having low BS during afternoon Insulin pump rates adjusted - below are the new adjusting settings - Settings: Basal - total - 93.25 u/day 00:00 - 5.0 u/hr 4:00 - 5 u/hr 07: 30 - 3.5 u/hr 12:30 - 3.5 u/hr 23: 00 - 4.0 u/hr Bolus - carb ratio -5 , Sensitivity - 35 BS target - 100-110 , active insulin - 4 hours - Start Steglatro 15 mg oral daily with breakfast - Stop Januvia - start Bydureon Bcise 2 mg sq weekly - Continue metformin same - follow up in 4 weeks Reminded to bring in blood sugar diary at next visit. Dietary recommendations for ADA diet. Regular aerobic exercise. Discussed ways to avoid symptomatic hypoglycemia. Discussed sick day management. Discussed foot care. Reminded to get yearly retinal exam. Medication changes per orders. Diabetes will be reassessed in 4 weeks . Assessment & Plan (04/14/2018 7:58 PM CDT): Diabetes is improving with treatment. Reviewed insulin pump download Pt not checking 4 x daily, she is checking avg 2 x daily and Pt not taking bolus with each meal. BS after 12 pm running high Pt snacks in between meals - advised to check 4 x daily and also take bolus with meals and with snacks - adjusted basal settings as below - Total 24 hr basal - 105.5 units - 12 am - 4 u/hr 4 am - 5 u/hr 7: 30 am - 3.5 u/hr 12: 30 pm - 5 u/hr 9 pm - 4 u/hr - Admelog - 25 units SQ three times daily with meals Take 10 -12 units with snack also advised to take below correctional scale With meals If pre meal BS 151 - 200 + 2 units 201 - 250 + 4 units 251 - 300 + 6 units 301- 350 + 8 units Over 351 + 10 units - start taking Januvia 100 mg oral daily with breakfast - start taking Steglatro 15 mg oral daily with breakfast - plan to switch to U 500 regular insulin if pt insulin requirements are still over 150 - follow up in 4 weeks Reminded to bring in blood sugar diary at next visit. Dietary recommendations for ADA diet. Regular aerobic exercise. Discussed ways to avoid symptomatic hypoglycemia. Discussed sick day management. Discussed foot care. Reminded to get yearly retinal exam. Medication changes per orders. Diabetes will be reassessed in 1 month. Assessment & Plan (03/17/2018 7:44 AM CDT): Diabetes is very poorly controlled , A1c today - 11.7 % . - reviewed insulin pump download - pt checking 1-2 x daily and avg BS 299 - pt bolusing only 1-2 x daily , mostly with only one meal - discussed about DM type 2, - patho physiology, short and mcc complications of uncontrolled DM, diet and exercise , importance on of BS monitoring, medications options ?? - discussed goal BS and A1c targets ?? - advise to start checking BS - before Meals and bedtime ?? - advise to work on healthy diet, avoid processed foods , increase vegetables and protein and cut back on carb portions and also avoid fruit juices and regular soda and desserts ?? - strongly advised pt to start checking her BS atleast 4 x daily - before each meal and bedtime and start giving bolus doses with each meal and also can give correctional bolus at bedtime, if her BS are high - advised to c/w oral Metformin 1000 mg oral twice daily after meals - start GLP-1 agonists - Bydureon BCise 2 mg SQ weekly - labs today , and advised to make an eye doctor appt once her BS improve And stabilize - follow up in 4 weeks with BS log Reminded to bring in blood sugar diary at next visit. Dietary recommendations for ADA diet. Regular aerobic exercise. Discussed ways to avoid symptomatic hypoglycemia. Discussed sick day management. Discussed foot care. Reminded to get yearly retinal exam. Medication changes per orders. Diabetes will be reassessed in 1 month. Cutaneous abscess of abdominal wall 03/17/2018 Assessment & Plan (03/17/2018 7:41 AM CDT): Prescribed Augmentin to take for 10 days If not resolved, or if symptoms worsen during Rx course, advise to go to ER or see infectious disease specialist Hypertension associated with diabetes 03/17/2018 Assessment & Plan (08/20/2018 4:21 PM SENIOR ENGINEER): Hypertension is chronic, well controlled Continue current treatment regimen. Dietary sodium restriction. Weight loss. Regular aerobic exercise. Continue current medications. Blood pressure will be reassessed at the next regular appointment. Assessment & Plan (06/21/2018 7:04 AM SENIOR ENGINEER): Hypertension is chronic, well controlled Continue current treatment regimen. Dietary sodium restriction. Weight loss. Regular aerobic exercise. Continue current medications. Blood pressure will be reassessed at the next regular appointment. Assessment & Plan (03/17/2018 7:43 AM CDT): Hypertension is fair controlled . Continue current treatment regimen. Dietary sodium restriction. Weight loss. Regular aerobic exercise. Continue current medications. Blood pressure will be reassessed at the next regular appointment. Hyperlipidemia associated with type 2 diabetes [place] 03/17/2018 Assessment & Plan (08/20/2018 4:21 PM SENIOR ENGINEER): Pt. On statin therapy Nutrition counseling provided Advised to increase aerobic exercise Assessment & Plan (06/21/2018 7:04 AM SENIOR ENGINEER): Pt. On statin therapy Nutrition counseling provided Advised to increase aerobic exercise Assessment & Plan (03/17/2018 7:44 AM CDT): Pt. On statin therapy Nutrition counseling provided Advised to increase aerobic exercise Insulin pump status 03/17/2018 Assessment & Plan (08/20/2018 4:21 PM SENIOR ENGINEER): Have long acting , basal insulin ( e.g. Lantus, Levemir, NPH, ) and insulin syringes as back up in case of pump failure If you have to take your insulin pump off for more than 12 h, start taking basal insulin, every 24 h ( take 80 % of the 24 h insulin delivered to you via insulin pump as calculated based on your basal rates ) and inject meal time insulin by injections, calculating the same way you do with your pump bolus ( according with carb intake and blood sugar readings ) Morbid obesity with BMI of 40.0-44.9, adult 02/18 Assessment & Plan (08/20/2018 4:21 PM SENIOR ENGINEER): Obesity is improving with lifestyle modifications. Discussed the patient's BMI. The BMI is above average; BMI management plan is completed. General weight loss/lifestyle modification strategies discussed (elicit support from others; identify saboteurs; non-food rewards, etc). Behavioral treatment: stress management. Diet interventions: moderate (500 kCal/d) deficit diet. Informal exercise measures discussed, e.g. taking stairs instead of elevator. Regular aerobic exercise program discussed. Assessment & Plan (06/21/2018 7:04 AM SENIOR ENGINEER): Obesity is improving with lifestyle habits Discussed the patient's BMI. The BMI is above average; BMI management plan is completed. General weight loss/lifestyle modification strategies discussed (elicit support from others; identify saboteurs; non-food rewards, etc). Behavioral treatment: stress management. Diet interventions: moderate (500 kCal/d) deficit diet. Informal exercise measures discussed, e.g. taking stairs instead of elevator. Regular aerobic exercise program discussed. Assessment & Plan (03/17/2018 7:43 AM CDT): Obesity is worsening. Discussed the patient's BMI. The BMI is above average; BMI management plan is completed. General weight loss/lifestyle modification strategies discussed (elicit support from others; identify saboteurs; non-food rewards, etc). Behavioral treatment: stress management. Diet interventions: moderate (500 kCal/d) deficit diet. Informal exercise measures discussed, e.g. taking stairs instead of elevator. Regular aerobic exercise program discussed. Immunizations Name Administration Dates Next Due Influenza, Quadrivalent, Spl it, Preservative Free, Intramuscular 08/16/2023 Social History Tobacco Use Types Packs/Day Years Used Date Smoking Tobacco: Every Day Cigarettes 0.2 44.1 Started: 1980 Smokeless Tobacco: Never Tobacco Cessation:Ready to Q uit: Not Asked; Counseling Given: Not Answered Alcohol Use Standard Drinks/Week Comments Yes 0 (1 standard drink = 0.6 oz pur e alcohol) Social Connection and Isolat ion Panel [NHANES] Answer Date Recorded In a typical week, how many times do you talk on the phone with family, friends, or neighbors? More than three times a week 02/17/2023 How often do you get togethe r with friends or relatives? More than three times a week 02/17/2023 How often do you attend chur ch or yazidism services? 1 to 4 times per year 02/17/2023 Do you belong to any clubs o r organizations such as latter day groups, unions, fraternal or athletic groups, or school groups? No 02/17/2023 How often do you attend meet ings of the clubs or organizations you belong to? Never 02/17/2023 Are you , , di vorced, , never , or living with a partner? 02/17/2023 Overall Financial Resource Strain (CARDIA) Answe r Date Recorded How hard is it for you to pa y for the very basics like food, housing, medical care, and heating? Not hard at all 02/17/2023 PHQ-2 Answer Date Recorded PHQ-2 Score 2 03/11/2019 Hunger Vital Sign Answer Date Recorded Within the past 12 months, y ou worried that your food would run out before you got the money to buy more. Never true 02/18/20 23 Within the past 12 months, t he food you bought just didn't last and you didn't have money to get more. Never true 02/17/2023 PRAPARE - Transportation Answer Date Re corded In the past 12 months, has l ack of transportation kept you from medical appointments or from getting medications? No 07/2022 In the past 12 months, has l ack of transportation kept you from meetings, work, or from getting things needed for daily living? No 02/17/2023 Housing Stability Vital Sign Answer Mika e Recorded In the last 12 months, was t here a time when you were not able to pay the mortgage or rent on time? No 02/17/2023 In the last 12 months, how many places have you lived? 1 02/17/2023 In the last 12 months, was t here a time when you did not have a steady place to sleep or slept in a correction (including now)? No 02/17/2023 Personal Safety Answer Date Recorded Have you ever been in or are you currently in a harmful physical or emotional relationship or is someone making you feel afraid or unsafe? Denies 08/15/2023 Comments No Sex and Gender Information Value Date Recorded Sex Assigned at Not on file Legal Sex Female 6:30 AM SENIOR ENGINEER Gender Identity Not on file Sexual Orientation Not on file Last Filed Vital Signs Vital Sign Reading Time Taken Comments Blood Pressure 153/90 08/16/2023 7:30 AM SENIOR ENGINEER Pulse 87 08/16/2023 7:30 AM SENIOR ENGINEER Temperature 36.8 ??C (98.2 ??F) 08/16/2023 7:30 AM CS T Respiratory Rate 18 08/16/2023 7:30 AM SENIOR ENGINEER Oxygen Saturation 99% 08/16/2023 7:30 AM SENIOR ENGINEER Inhaled Oxygen Concentration - - Weight 100.7 kg (222 lb 0.1 oz) 024 11:25 PM SENIOR ENGINEER Height 165.1 cm (5' 5 ) 08/14/2023 11:2 5 PM SENIOR ENGINEER Body Mass Index 36.94 08/14/2023 11:25 PM SENIOR ENGINEER Plan of Treatment Not on file Procedures Procedure Name Priority Date/Time Associated Diagnosis Comments EGFR Routine 08/15/2023 4:36 AM SENIOR ENGINEER HEMOGLOBIN A1C STAT 08/14/2023 6:14 PM SENIOR ENGINEER POCT LIPID PANEL Routine 03/16/2018 1:50 PM CDT Type 2 diabetes mellitus with hyperglycemia, with long-term current use of insulin ([facility]) from Last 3 Months or Most Recently Relevant to Health Maintenance Results * eGFR (08/15/2023 4:36 AM SENIOR ENGINEER) eGFR 118 mL/min/1. 73 m2 JER Comment: Interpretive Data Reference Interval Normal ?>/= 90 mL/min/1.73m2 Mildly decreased* ? 60 - 89 mL/min/1.73m2 Mildly to moderately decreased ?45 - 59 mL/min/1.73m2 Moderately to severely decreased ??30 - 44 mL/min/1.73m2 Severely decreased ?15 - 29 mL/min/1.73m2 Kidney Failure ?< 15 ??mL/min/1.73m2 *Relative to young adult level Estimated glomerular filtration rate is determined by the 2020 CKD-EPI equation recommended by the National Kidney Foundation (A Unifying Approach to GFR Estimation: Recommendations of the NKF-ASK Task Force on Reassessing the Inclusion of Race in Diagnosing Kidney Disease, JASN 2020). The CKD-EPI equation should not be used for patients with unstable renal function and has not been validated in children and those over 70. Current interpretive data was last reviewed 2021. Blood 08/15/2023 4:36 AM SENIOR ENGINEER 08/15/2023 4:36 AM SENIOR ENGINEER us Drew Early MD LAB BLOOD ORDERABLES Final R esult [facility] [id number] [facility] Department [place] [address] * (ABNORMAL) Hemoglobin A1c (08/14/2023 6:14 PM SENIOR ENGINEER) Pathologist [facility] Hgb A1C 11.5(H) 4.0 - 5.6 % JER Comment:Testing performed by : [facility], [address] [place] [address]., [id number] Estimated Average Glucose 283 mg/dL [facility] [place] Comment: The ADA recommends reporting an estimated Average Glucose (eAG) with all Hemoglobin A1c results using the equation derived from a study of 507 normal and diabetic adults. ??Minority populations were underrepresented and children were not included. ?? (Diabetes Care 31:3867-5917, 2008). ??The eAG is not equivalent to a fasting glucose. Testing performed by: [facility], [address] [place] [address]., [id number] Blood 08/14/2023 6:14 PM SENIOR ENGINEER 08/14/2023 6:15 PM SENIOR ENGINEER us Luis Fernando Barragan DO LAB BLOOD ORDERABLES Final Result [facility] [id number] [facility] Department [place] [address] * POCT lipid panel (03/16/2018 1:50 PM CDT) Cholesterol, POC 185 mg/dL HDL, POC 40 mg/dL Triglycerides, POC 231 mg/dL LDL Cholesterol POC 99 mg/dL Blood specimen (specimen) 03/16/2018 1:50 PM CDT us Connor Ramirez MD POINT OF CARE TEST ORDERABLES Final Result from Last 3 Months or Most Recently Relevant to Health Maintenance Additional Health Concerns Infection Onset Date Last Indicated MDR gram neg/ESBL 05/16/2023 05/16/2023 Insurance [facility] Advance Directives For more information, please contact: [phone] * Full Code (Latest Code Status on File) Date Activated Date Inactivated Comments 08/14/2023 11:22 PM 08/16/2023 3:36 PM * Full Code Date Activated Date Inactivated Comments 02/16/2023 10:52 PM 02/22/2023 5:12 PM Care Teams Second Watch Sergeant Relationship Specialty Start Date End Date No, Physician PCP - General 08/14/23 Juan Pablo Forbes DO Internal Medicine 03/17/18 [place] [id number] [facility] [address], [place] [address] Consulting Physician Endocrinology 09/01/18
--- OUTSIDE RECORDS SUMMARY | 2024-08-11 10:04 | XMS_ITS | Encounter Summary ---
Author Organization [facility] Address [address] [facility] [place] [address] Care Team Providers Care Conditioner Tender Name Role Phone Luis M Kirkpatrick MD Unavailable [phone] Lucho Casas MD Unavailable [phone] Luis M Kirkpatrick MD Primary Care Provider [phone] Encounter Details Date Type Department Care Team (Late st Contact Info) Description 05/27/2023 Telephone [facility] - Centralized Scheduling [address] [place] [id number] Arelis Argueta MD [facility] OF [place] [id number] Social History Tobacco Use Types Packs/Day Years [...] encounter Miscellaneous Notes * Telephone Encounter - Romain Ridley MA - 05/27/2023 11:44 AM CST Called patient. To let her know that Dr. Berry sent her prescriptions into the pharmacy. Patient did not answer. Left voice mail to call office back. COORDINATOR * Telephone Encounter - Erica Saini - 05/27/2023 9:15 AM CST Patient called in requesting a Med refill. Drug type: dulaglutide (Trulicity) 1.5 MG/0.5ML injection, insulin pen needle (B-D UF III MINI PEN NEEDLES) 31G X 5 MM needle and one touch ultra test strips. Pharmacy:[facility] [address] [place] [address] Patient call back number: [phone]. States thatshe is running out of medication. Is frustrated because she was told that Dr. Meza would be fillingher meds because Dr. Quintana is [facility] through [facility]. Reached out to SCOTT Hoyos regarding this concern and was advised that Dr. Meza isn't here today. Ms. Segovia would like a call back to discuss further steps. Callback number listed above. . COORDINATOR documented in this encounter Plan of Treatment Not on file documented as of this encounter Visit Diagnoses Not on filedocumented in this encounter Care Teams Conditioner Tender Relationship Specialty Start Date End Date Luis M Kirkpatrick MD [address] [place] [address] PCP - General 11/26/21 Luis M Kirkpatrick MD [address] [place] [address] 04/16/21 Lucho Casas MD [address] [place] [address] 10/07/18 documented as of this encounter
--- OUTSIDE RECORDS SUMMARY | 2024-08-11 10:04 | XMS_ITS | Clinical Summary ---
Author Organization [facility] Address [address] [place] [address]. [place], [place] [id number] [place] [address] Care Team Providers Care Supervisor Endless Track Vehicle Name Role Phone Andrei Juan Pablo Javi DO Primary Care Provider [phone] Allergies Active Allergy Reactions Criticality Noted Date Comments Sulfamethoxazole-Trimethoprim Nausea and Vomiting 12/02/2017 Propoxyphene Nausea and Vomiting 12/02/2017 Hydrocodone-Acetaminophen Nausea and Vomiting 0 12/02/2017 Social History Tobacco Use Types Packs/Day Years Used Date Smoking Tobacco: Former Smokeless Tobacco: Never Comments:quit 4 years ago Alcohol Use Standard Drinks/Week Comments No 0 (1 standard drink = 0.6 oz pur e alcohol) Comments No Sex and Gender Information Value Date Recorded Sex Assigned at Not on file Legal Sex Female 7:40 PM CDT Gender Identity Not on file Sexual Orientation Not on file Last Filed Vital Signs Vital Sign Reading Time Taken Comments Blood Pressure 156/77 12/02/2017 4:53 PM CDT Pulse 98 12/02/2017 4:53 PM CDT Temperature 36.7 ??C (98.1 ??F) 12/02/2017 11:53 AM C DT Respiratory Rate 18 12/02/2017 4:53 PM CDT Oxygen Saturation 98% 12/02/2017 4:53 PM CDT Inhaled Oxygen Concentration - - Weight 115 kg (253 lb 8.5 oz) 12/02/2017 11:53 A M CDT Height 165.1 cm (5' 5 ) 12/02/2017 11:53 AM CDT Body Mass Index 42.19 12/02/2017 11:53 AM CDT Plan of Treatment Health Maintenance Due Date Last Done Comments Cervical Cancer Screening Pa p Smear (Age 30 to 64) Every 3 Years 1969 Colorectal Cancer Screening Colonoscopy (10 Years) 1969 Annual Physical 02/10/1972 Hepatitis C 1987 DTaP, Tdap and Td Vaccines ( 1 - Tdap) 02/10/1988 Hepatitis B Vaccines (1 of 3 - 19+ 3-dose series) 02/10/1988 Cervical Cancer Screening Pa p with HPV Testing (Age 30 to 64) Every 5 Years 1999 Cervical Cancer Screening with HPV 1999 Mammogram Screening 2009 Zoster Vaccines (1 of 2) 2019 COVID-19 Vaccine ( - 2023-2 5 season) 2024 Influenza Adult (#1) 2024 Meningococcal Vaccine Aged Out No angélica lloyd eligible based on patient's age to complete this topic Pneumococcal Vaccine: Pediat rics (0 to 5 Years) and At-Risk Patients (6 to 64 Years) Aged Out No longer eligible b ased on patient's age to complete this topic RSV Immunizations Under 20 Months Aged Out No longer eligible based on patient's age to complete this topic Insurance [facility] Care Teams Supervisor Endless Track Vehicle Relationship Specialty Start Date End Date Juan Pablo Forbes DO [address] [facility] [address] [place] [address] PCP - General INTERNAL MEDICINE 12/02/17
--- OUTSIDE RECORDS SUMMARY | 2024-08-11 10:04 | XMS_ITS | Clinical Summary ---
Author Organization [facility] Physician Office Building [address] [place] [address] Care Team Providers Care Cartridge Assembling Machine Adjuster Name Role Phone Juan Pablo Forbes DO Unavailable [phone] Connor Barton MD Unavailable [phone] No, Physician Primary Care Provider [phone] Allergies Active Allergy Reactions Criticality Noted Date Comments Bacitracin Vomiting Low 03/16/2018 Sulfamethoxazole-Trimethoprim Diarrhea,Vomiting Low 05/13/2022 Celecoxib Nausea & Vomiting Low 03/16/2018 Clindamycin Hives Medium 03/16/2018 Propoxyphene-Acetaminophen Nausea & Vomiting Low Medications blood glucose diagnostic stripIndication s:Type 2 diabetes mellitus with hyperglycemia, with long-term current use of insulin ([facility]) accu-check guide test strips test blood sugars five times every day dx:E11.65 insulin dependent 150 each 3 8 Active FLUoxetine (PROzac) 20 mg capsule Take 1 capsule (20 mg total) by mouth 2 (two) times a day 0 8 Active metFORMIN (GLUCOPHAGE) 1,000 mg tabletIndicatio ns:Type 2 diabetes mellitus with hyperglycemia, with long-term current use of insulin ([facility]) TAKE 1 TABLET(1000 MG) BY MOUTH TWICE [...] coma associated with type 2 diabetes mellitus ([facility]) 08/14/2023 Cellulitis of female genitalia 02/16/2023 Proteinuria due to type 2 diabetes mellitus ([facility]) 04/14/2018 Type 2 diabetes mellitus wit h hyperglycemia, with long-term current use of insulin 03/17/2018 Assessment & Plan (08/20/2018 4:20 PM WATER CONTROL SUPERVISOR): Diabetes is improving with treatment. Reviewed insulin [...] . Assessment & Plan (06/21/2018 7:03 AM WATER CONTROL SUPERVISOR): Diabetes is improving with treatment. Reviewed insulin [...] . Assessment & Plan (05/23/2018 8:52 PM WATER CONTROL SUPERVISOR): Diabetes is improving with treatment. A1c - [...] type 2, - patho physiology, short and fdc complications of uncontrolled DM, diet and exercise [...] 03/17/2018 Assessment & Plan (08/20/2018 4:21 PM WATER CONTROL SUPERVISOR): Hypertension is chronic, well controlled Continue current treatment regimen. Dietary sodium restriction. Weight loss. Regular aerobic exercise. Continue current medications. Blood pressure will be reassessed at the next regular appointment. Assessment & Plan (06/21/2018 7:04 AM WATER CONTROL SUPERVISOR): Hypertension is chronic, well controlled Continue current [...] 03/17/2018 Assessment & Plan (08/20/2018 4:21 PM WATER CONTROL SUPERVISOR): Pt. On statin therapy Nutrition counseling provided Advised to increase aerobic exercise Assessment & Plan (06/21/2018 7:04 AM WATER CONTROL SUPERVISOR): Pt. On statin therapy Nutrition counseling provided Advised to increase aerobic exercise Assessment & Plan (03/17/2018 7:44 AM CDT): Pt. On statin therapy Nutrition counseling provided Advised to increase aerobic exercise Insulin pump status 03/17/2018 Assessment & Plan (08/20/2018 4:21 PM WATER CONTROL SUPERVISOR): Have long acting , basal insulin ( [...] 02/18 Assessment & Plan (08/20/2018 4:21 PM WATER CONTROL SUPERVISOR): Obesity is improving with lifestyle modifications. Discussed [...] discussed. Assessment & Plan (06/21/2018 7:04 AM WATER CONTROL SUPERVISOR): Obesity is improving with lifestyle habits Discussed [...] Quadrivalent, Spl it, Preservative Free, Intramuscular 08/16/2023 Surgical History Surgery Date Site/Laterality Comments KNEE SURGERY Bilateral TONSILLECTOMY SECTION Medical History Medical History Date Comments Type 2 diabetes mellitus (HCC) Arthritis Family History Medical History Relation Name Comments Diabetes Brother Diabetes Father Diabetes Sister Relation Name Status Comments Brother Father Sister Social History Tobacco Use Types Packs/Day Years [...] 02/17/2023 How often do you attend chur or taoist services? 1 to 4 times per year 02/17/2023 Do you belong to any clubs o r organizations such as religious groups, unions, fraternal or athletic groups, or [...] medical appointments or from getting medications? No 0807/2022 In the past 12 months, has l [...] place to sleep or slept in a assisted (including now)? No 02/17/2023 Personal Safety Answer Date Recorded Have you ever been in or are you currently in a harmful physical or emotional relationship or is someone making you feel afraid or unsafe? Denies 08/15/2023 Comments No Sex and Gender Information Value Date Recorded Sex Assigned at Not on file Legal Sex Female 6:30 AM WATER CONTROL SUPERVISOR Gender Identity Not on file Sexual Orientation Not on file Obstetrics History Last Filed Vital Signs Vital Sign Reading Time Taken Comments Blood Pressure 153/90 08/16/2023 7:30 AM WATER CONTROL SUPERVISOR Pulse 87 08/16/2023 7:30 AM WATER CONTROL SUPERVISOR Temperature 36.8 ??C (98.2 ??F) 08/16/2023 7:30 AM CS T Respiratory Rate 18 08/16/2023 7:30 AM WATER CONTROL SUPERVISOR Oxygen Saturation 99% 08/16/2023 7:30 AM WATER CONTROL SUPERVISOR Inhaled Oxygen Concentration - - Weight 100.7 kg (222 lb 0.1 oz) 024 11:25 PM WATER CONTROL SUPERVISOR Height 165.1 cm (5' 5 ) 08/14/2023 11:2 5 PM WATER CONTROL SUPERVISOR Body Mass Index 36.94 08/14/2023 11:25 PM WATER CONTROL SUPERVISOR Plan of Treatment Health Maintenance Due Date Last Done Comments Albumin Creatinine Ratio, Urine 1969 Breast Cancer Screening-Mammogram 1969 Cervical Cancer Screening 1969 Colon Cancer Screening-Colonoscopy 1969 Hepatitis C Screening 1969 Dilated Eye Exam 1969 Pneumococcal vaccine <65 (1 of 2 - PCV) 1975 DTaP/Tdap/Td Vaccine (1 - Tdap) 02/10/1980 Hepatitis B Screening 1987 Regular Well Visit/Exam 18-64 1987 Lipid Panel 03/16/2019 03/16/2018 Depression Screening 06/18/2019 06/18/2018, 05/18/2018, 04/14/2018, Additional history exists Foot Exam 08/20/2019 08/20/2018, 11/3 , 05/18/2018, Additional history exists Hemoglobin A1C 02/12/2024 08/14/2023, 08/0 07/2022, 08/20/2018, Additional history exists Covid-19 Vaccine (2023-2 5 season) 2024 12/21/2021, 08/03/2021 Influenza Vaccine (#1) 2024 08/16/2023, 2020 eGFR 08/15/2024 08/15/2023, 07/21, 08/14/2023, Additional history exists Zoster Vaccine Completed 02/19/2022, 12/21/2021 Procedures Procedure Name Priority Date/Time Associated Diagnosis Comments EGFR Routine 08/15/2023 4:36 AM WATER CONTROL SUPERVISOR HEMOGLOBIN A1C STAT 08/14/2023 6:14 PM WATER CONTROL SUPERVISOR POCT LIPID PANEL Routine 03/16/2018 1:50 PM CDT Type 2 diabetes mellitus with hyperglycemia, with long-term current use of insulin ([facility]) from Last 3 Months or Most Recently Relevant to Health Maintenance Results * eGFR (08/15/2023 4:36 AM WATER CONTROL SUPERVISOR) [facility] eGFR 118 mL/min/1. 73 m2 JER Comment: [...] last reviewed 2021. Blood 08/15/2023 4:36 AM WATER CONTROL SUPERVISOR 08/15/2023 4:36 AM WATER CONTROL SUPERVISOR Drew Early MD LAB BLOOD ORDERABLES Final R esult [facility] [address] [facility] Department [place] [address] * (ABNORMAL) Hemoglobin A1c (08/14/2023 6:14 PM WATER CONTROL SUPERVISOR) [facility] Hgb A1C 11.5(H) 4.0 - 5.6 % JER Comment:Testing performed by : [address] [address] Estimated Average Glucose 283 mg/dL JER Comment: The ADA recommends reporting an estimated Average Glucose (eAG) with all Hemoglobin A1c results using the equation derived from a study of 507 normal and diabetic adults. ??Minority populations were underrepresented and children were not included. ?? (Diabetes Care 31:3449-7849, 2008). ??The eAG is not equivalent to a fasting glucose. Testing performed by: [address] [address] Blood 08/14/2023 6:14 PM WATER CONTROL SUPERVISOR 08/14/2023 6:15 PM WATER CONTROL SUPERVISOR us Luis Fernando Barragan DO LAB BLOOD ORDERABLES Final Result [facility] [address] [facility] Department [place] [address] * POCT lipid panel (03/16/2018 1:50 PM [...] Indicated MDR gram neg/ESBL 05/16/2023 05/16/2023 Insurance [facility] Advance Directives For more information, please contact: [phone] * Full Code (Latest Code Status on File) Date Activated Date Inactivated Comments 08/14/2023 11:22 PM 08/16/2023 3:36 PM * Full Code Date Activated Date Inactivated Comments 02/16/2023 10:52 PM 02/22/2023 5:12 PM Care Teams Cartridge Assembling Machine Adjuster Relationship Specialty Start Date End Date No, Physician PCP - General 08/14/23 Juan Pablo Forbes DO Internal Medicine 03/17/18 [place] [address] [facility] [address] [place] [address] Consulting Physician Endocrinology 09/01/18
--- OUTSIDE RECORDS SUMMARY | 2024-08-11 10:04 | XMS_ITS | Encounter Summary ---
Author Organization [facility] Health Address [address] [place] [address] Care Team Providers Care Right Of Way Cutter Name Role Phone Luis M Kirkpatrick MD Unavailable [phone] Lucho Casas MD Unavailable [phone] Luis M Kirkpatrick MD Primary Care Provider [phone] Encounter Details Date Type Department Care Team (Late st Contact Info) Description 05/27/2023 Telephone [facility] - Endocrinology [address] [place] [address], [facility] [place] [address] Arelis Argueta MD [address] [place] [address] [place] [phone] Social History Tobacco Use Types Packs/Day Years [...] encounter Miscellaneous Notes * Telephone Encounter - Arelis Argueta MD - 05/29/2023 12:08 PM CST Done ONAL OPERATIONS DIRECTOR * Telephone Encounter - Lia Grier LPN - 05/27/2023 2:45 PM CST Returned call to patient, and spoke with Whit. Patient stated that her bs has been running high for the past few weeks. Patient stated that her bs have gotten up to 588. Advised patient that I wouldsend a message to Dr Argueta but that she also needs to go to the emergency room for further eval.Patient stated that she recently went to the hospital close to her house and they didn't do anything with her sugars due to her having an abscess, patient states that she has HS. Was told at the ER that her sugars are most likely high due to the infection in the abscess, patient stated that she hasbeen taking antibiotics. Reviewed messages previously sent by me regarding her insulin pump and bolus dosages. Patient stated that no one has ever called her about that. I advised patient that I reached out to her 3x's and also Dr Argueta called. Patient stated she is taking 30 units bolus with meals and 60u lantus at nite. Again I advised patient to go to the Er for eval for high bs if they arerunning in the 400 and 500's. Patient stated she doesn't want to go to the ER ONAL OPERATIONS DIRECTOR * Telephone Encounter - Tarsha Cedillo - 05/27/2023 11:51 AM CST Current Provider name: Dr. Kendall Infante/Staff Reason for call: Ms. Whit Segovia is calling re: her blood sugar running between 400 and 500 for a few weeks, currently her level is at 499, 11:20AM, 05/27/2023. Please give her a call SHE. shE ADDEDPARIS CURRENTLY has an abscess and is taking antibiotics, with two doses remaining Patient Call Back number: [phone] ONAL OPERATIONS DIRECTOR documented in this encounter Plan of Treatment Not on file documented as of this encounter Visit Diagnoses Not on filedocumented in this encounter Care Teams Right Of Way Cutter Relationship Specialty Start Date End Date Luis M Kirkpatrick MD [address] [place], [place] [id number] PCP - General 11/26/21 Luis M Kirkpatrick MD [address] [place] [address] 04/16/21 Lucho Casas MD [address] [place] [address] 10/07/18 documented as of this encounter
--- OUTSIDE RECORDS SUMMARY | 2024-08-11 10:04 | XMS_ITS | Continuity of Care Document ---
Author Organization [facility] Address [address] [place] [address] [place] [address] Phone Care Team Providers Care Assistant Media Planner Name Role Phone Gage Kaiser Unavailable Unavailable Procedures Procedure Date Eye Exam & Treatment Refraction Eye Exam, New Patient Advance Directives Directive Yes / No Effective Date File Name No Information Encounters Encounter Description Practice Location Reason(s) For Visit Diagnoses Date Provider Providers Copied on Encounter [facility], [address] [place] [address] [address], [place], [place], [id number], tel:[phone] [facility] No Information 8-201 0 Krishnasamy Gage. [address] [address], [place], [place], [facility], [place]. tel:[phone] [facility], [address] [place] [address] [address], [place], [place], [id number], tel:[phone] [facility] No Information 0-200 9 Krishnasamy Gage. [address] [facility] [address], [place], [address], [place]. tel:[phone] Family History Family Member Type Diagnosis Age At Onset No Information Payers Payer name Insurance type Covered green party ID Authortaylora bill(s) Medicaid [facility] [id number] Social History Type Description Quantity Date Captured Comments Sex Female Smoking Status No Information Chief Complaint And Reason For Visit No Information Reason For Referral Reason For Referral No Information History Of Present Illness Encounter Date Complaint History Of Prese nt Illness No Information Functional Status Date Functional Assessmen t No Information Instructions Date Instruction Additional Infor mation No Information Assessments Type Assessment Date No Information Patient Care Teams Name Effective Dates (start - stop) Status Members No Information
--- OUTSIDE RECORDS SUMMARY | 2024-08-11 10:04 | XMS_ITS | Encounter Summary ---
Author Organization [facility] Health Address [address] [facility] [place] [address] Care Team Providers Care Mechanical Designer Name Role Phone Luis M Kirkpatrick MD Unavailable [phone] Lucho Casas MD Unavailable [phone] Luis M Kirkpatrick MD Primary Care Provider [phone] Encounter Details Date Type Department Care Team (Late st Contact Info) Description 05/29/2023 Telephone [facility] - Endocrinology [address] [place] [address], [facility] [place] [address] Sobia Meza MD [address] [place] [phone] Social History Tobacco Use Types Packs/Day Years [...] encounter Miscellaneous Notes * Telephone Encounter - Elana Riggs - 05/29/2023 8:32 AM CST Patient called in requesting a Med refill. Drug type:LANTUS PEN, ONE TOUCH ULTRA STRIPS, AND PEN NEEDLES BUT MAY NEED A SUBSTITUTE BRAND OF PEN NEEDLES DUE TO INSURANCE NOT COVERING. Pharmacy:[id number] - [address] [facility] [address] [facility] [address] Patient call back number: [phone] . PATIENT ALSO STATES HER BLOOD SUGAR IS STILL IN THE 300'S AND WOULD LIKE A CALL FROM THE OFFICE. STUDY TECHNOLOGIST documented in this encounter Plan of Treatment Not on file documented as of this encounter Visit Diagnoses Not on filedocumented in this encounter Care Teams Mechanical Designer Relationship Specialty Start Date End Date Luis M Kirkpatrick MD [address] [facility] [address] [place] [address] PCP - General 11/26/21 Luis M Kirkpatrick MD [address] [facility] [address] [place] [address] 04/16/21 Lucho Casas MD [address] [place] [address] 10/07/18 documented as of this encounter
--- OUTSIDE RECORDS SUMMARY | 2024-08-11 10:04 | XMS_ITS | Clinical Summary ---
Author Organization [facility] Address [address] [place] [address] Care Team Providers Care Seal Skinner Name Role Phone Unavailable Primary Care Provider Unavailabl e Social History Tobacco Use Types Packs/Day Years Used Date Smoking Tobacco: Never Assessed Comments Unknown Sex and Gender Information Value Date Recorded Sex Assigned at Not on file Legal Sex Female 9:24 AM MAGNETOMETER OPERATOR Gender Identity Not on file Sexual Orientation Not on file Plan of Treatment Health Maintenance Due Date Last Done Comments Hepatitis C Virus (HCV) Screening 1969 TdaP Immunization 1969 Hepatitis B Immunization (1 of 3 - 19+ 3-dose series) 02/10/1988 Pap Smear 1990 Cervical Cancer Screening (CCS) 1999 HPV/Cotest 1999 Colonoscopy 2014 Colorectal Cancer Screening 2014 Cologuard 2019 Immunochemical Fecal Occult Blood 2019 Mammogram 2019 Pneumococcal Immunization (5 0+ years) (1 of 1 - PCV) 2019 Zoster Immunization (1 of 2) 2019 Influenza Immunization (#1) 2024 SARS-COV-2 Immunization (3 - 2023-25 season) 2024 10/23/2020, 09/30/2020 Respiratory Syncytial Virus (RSV) Immunization (Adult) (1 - 1-dose 75+ series) 02/10/2044 Meningococcal Immunization (ACWY) Aged Out No longer eligible b ased on patient's age to complete this topic Pneumococcal Immunization Combined Aged Out No longer eligible b ased on patient's age to complete this topic Rotavirus Immunization Aged Out No lo nger eligible based on patient's age to complete this topic
== END 2024-08-07 13:10 | disposition home or self-care (01) ==
PROVIDERS: Emergency Provider Emergency Medicine; PCP Nurse Practitioner Family
DX: J10.2 Influenza due to other identified influenza virus with gastrointestinal manifestations (principal); Z20.822 Contact with and (suspected) exposure to COVID-19; I10 Essential (primary) hypertension; E78.5 Hyperlipidemia, unspecified; E11.9 Type 2 diabetes mellitus without complications; F17.210 Nicotine dependence, cigarettes, uncomplicated; Z96.653 Presence of artificial knee joint, bilateral; Z86.718 Personal history of other venous thrombosis and embolism; Z86.711 Personal history of pulmonary embolism; Z90.49 Acquired absence of other specified parts of digestive tract; R00.0 Tachycardia, unspecified; R94.31 Abnormal electrocardiogram [ECG] [EKG]; Z79.85 Long-term (current) use of injectable non-insulin antidiabetic drugs; Z79.4 Long term (current) use of insulin; Z79.899 Other long term (current) drug therapy; Z79.01 Long term (current) use of anticoagulants
CPT/HCPCS: 36415; 71046; 71275; 80053; 81001; 85025; 87637; 93005; 96360; 99284; A9270; J7030; Q9967

== ENCOUNTER 2024-12-13 09:15 | Outpatient (RCR) | payer OTHER, SELFPAY | END 2024-12-18 23:59 | disposition home or self-care (01) | LOC: ANHDMC 09:15 | PROVIDERS: PCP Nurse Practitioner Family; Visit Provider Nurse Practitioner Family | DX: E11.9 Type 2 diabetes mellitus without complications (principal); Z71.89 Other specified counseling | CPT/HCPCS: G0108 ==

== ENCOUNTER → 2024-12-19 10:52 | Outpatient (CLI) | payer OTHER, SELFPAY ==
--- NOTE | ~2024-12-19 | XR_ITS ---
Right Knee Technique: AP, lateral, and oblique views were obtained. Clinical History: Pain Findings: No fracture or dislocation is seen. Right knee arthroplasty in place. Soft tissues are unre markable. No joint effusion is seen. Impression: No acute abnormality. Right knee arthroplasty. Reviewed, dictated and finalized at location . Impression: No acute abnormality. Right knee arthroplasty.
== END ==
PROVIDERS: PCP Nurse Practitioner Family; Visit Provider Nurse Practitioner Family
DX: M25.561 Pain in right knee (principal); Z96.651 Presence of right artificial knee joint
CPT/HCPCS: 73560

== ENCOUNTER 2024-12-28 15:57 | Outpatient (CLI) | payer OTHER, SELFPAY ==
--- NOTE | ~2024-12-28 | CT_ITS ---
EXAMINATION: CT knee RT wo con DATE: 12/28/2024 16:17 INDICATION: Prior right total knee replacement presenting with right knee pain TECHNIQUE: High resolution computed tomography (CT) of the right knee was performed without intraveno us contrast. Additional sagittal and coronal reconstructions were performed. Automated exposure contr ol and iterative reconstruction technique were employed. The dose-length product was 583.21 mGy-cm. COMPARISON: None FINDINGS: Right total knee arthroplasty with patellar resurfacing which appears well seated in near-anatomic al ignment. No periprosthetic lucency to suggest loosening or infection. No fracture. Small joint effusi on at the suprapatellar pouch. There are some peripheral vascular calcification along the popliteal a rtery and more distally in the proximal A2 tibial, posterior tibial and peroneal arteries. IMPRESSION: 1. Right total knee arthroplasty in near-anatomic alignment with small right knee joint effusion but no acute osseous abnormality. Reviewed, dictated and finalized at location A. IMPRESSION: 1. Right total knee arthroplasty in near-anatomic alignment with small right kn ee joint effusion but no acute osseous abnormality.
--- OUTSIDE RECORDS SUMMARY | 2024-12-28 17:57 | XMS_ITS | Encounter Summary ---
Author Organization [facility] Health Address [address] [facility] [place] [address] Care Team Providers Care Laundry Technician Name Role Phone Luis M Kirkpatrick MD Unavailable [phone] Lucho Casas MD Unavailable [phone] Luis M Kirkpatrick MD Primary Care Provider [phone] Encounter Details Date Type Department Care Team (Late st Contact Info) Description 04/14/2023 Telephone [facility] - Centralized Scheduling [address] [place] [phone] Arelis Argueta MD [address] [place] [phone] Social History Tobacco Use Types Packs/Day Years Used Date Smoking Tobacco: Some Days Cigarettes 0.5 30 Smokeless Tobacco: Former Alcohol Use Standard Drinks/Week Comments Yes 0 (1 standard drink = 0.6 oz pur e alcohol) socially Comments No Sex and Gender Information Value Date Recorded Sex Assigned at Not on file Legal Sex Female 1:22 PM CABLE TOOL DRILLER Gender Identity Not on file Sexual Orientation Not on file documented as of this encounter Plan of Treatment Not on file documented as of this encounter Visit Diagnoses Not on filedocumented in this encounter Care Teams Laundry Technician Relationship Specialty Start Date End Date Luis M Kirkpatrick MD [address] [place], [place] [address] PCP - General 11/26/21 Luis M Kirkpatrick MD [address] [place], [place] [phone] 04/16/21 Lucho Casas MD [address] [place] [address] 10/07/18 documented as of this encounter
--- OUTSIDE RECORDS SUMMARY | 2024-12-28 17:57 | XMS_ITS | Clinical Summary ---
Author Organization [facility] Address [address] [place] [address] Care Team Providers Care Sales Product Specialist Name Role Phone Unavailable Primary Care Provider Unavailabl e Social History Tobacco Use Types Packs/Day Years Used Date Smoking Tobacco: Never Assessed Comments Unknown Sex and Gender Information Value Date Recorded Sex Assigned at Not on file Legal Sex Female 9:24 AM DAYLIGHT DRILLER Gender Identity Not on file Sexual [...]
--- OUTSIDE RECORDS SUMMARY | 2024-12-28 17:57 | XMS_ITS | Encounter Summary ---
Author Organization [facility] Health Address [address] [facility] [place] [address] Care Team Providers Care First Helper Name Role Phone Luis M Kirkpatrick MD Primary Care Provider [phone] Lucho Casas MD Primary Care Provider [phone] Luis M Kirkpatrick MD Unavailable [phone] uLcho Casas MD Unavailable [phone] Luis M Kirkpatrick MD Primary Care Provider [phone] Reason for Visit * Reason Onset Date Comments Medication Prior Auth Request 01/24/2019 Encounter Details Date Type Department Care Team (Late st Contact Info) Description 01/24/2019 Telephone [facility] Endocrinology, Diabetes and Metabolism [address] [place] [address] Timo Us MD [address] [place] [address] Medication Prior Auth Request Social History Tobacco Use Types Packs/Day Years Used Date Smoking Tobacco: Never Smokeless Tobacco: Never Alcohol Use Standard Drinks/Week Comments Yes 0 (1 standard drink = 0.6 oz pur e alcohol) Comments Unknown Sex and Gender Information Value Date Recorded Sex Assigned at Not on file Legal Sex Female 1:22 PM DRAW IN HAND Gender Identity Not on file Sexual Orientation Not on file documented as of this encounter Miscellaneous Notes * Telephone Encounter - Estuardo Ann - 01/24/2019 10:44 AM CDT Spoke to pt's INS and they stated that the only alternative for Bydureon that is covered through the pt's INS is Byetta, but it only comes in 5mcg and 10mcg pens and still requires a PA for this Rx as well. [facility] documented in this encounter Plan of Treatment Not on file documented as of this encounter Visit Diagnoses Not on filedocumented in this encounter Care Teams First Helper Relationship Specialty Start Date End Date Luis M Kirkpatrick MD [address] [place] [address] PCP - General 10/07/18 04/15/21 Lucho Casas MD [address] [place] [address] PCP - General 04/16/21 11/25/21 Luis M Kirkpatrick MD [address] [place] [address] PCP - General 11/26/21 Luis M Kirkpatrick MD [address] [place] [address] 04/16/21 Lucho Casas MD [address] [place] [address] 10/07/18 documented as of this encounter
--- OUTSIDE RECORDS SUMMARY | 2024-12-28 17:57 | XMS_ITS | Encounter Summary ---
Author Organization [facility] Address [address] [place] [address] Care Team Providers Care Pan Greaser Name Role Phone Luis M Kirkpatrick MD Unavailable [phone] Lucho Casas MD Unavailable [phone] Luis M Kirkpatrick MD Primary Care Provider [phone] Reason for Visit * Reason Onset Date Comments MEDICATION REFILL 08/04/2022 Encounter Details Date Type Department Care Team (Late st Contact Info) Description 08/04/2022 Refill [facility] End[facility]inology, Diabetes and Metabolism [address] [place] [phone] Db Sue MD [address] [place] [address] MEDICATION REFILL Social History Tobacco Use Types Packs/Day Years Used Date Smoking Tobacco: Some Days Cigarettes 0.5 30 Smokeless Tobacco: Former Alcohol Use Standard Drinks/Week Comments Yes 0 (1 standard drink = 0.6 oz pur e alcohol) socially Comments No Sex and Gender Information Value Date Recorded Sex Assigned at Not on file Legal Sex Female 1:22 PM COTTON STRIPPER Gender Identity Not on file Sexual Orientation Not on file documented as of this encounter Miscellaneous Notes * Telephone Encounter - Silva Belle LPN - 08/04/2022 9:59 AM CST ERROR ON STRIPPER documented in this encounter Plan of Treatment Not on file documented as of this encounter Visit Diagnoses Diagnosis Diabetes mellitus type 2, insulin dependent (HCC)- Primary Type II or unspecified type diabetes mellitus without mention of complication, not stated as uncontrolled documented in this encounter Care Teams Pan Greaser Relationship Specialty Start Date End Date Luis M Kirkpatrick MD [address] [place] [address] PCP - General 11/26/21 Luis M Kirkpatrick MD [address] [place] [address] 04/16/21 Lucho Casas MD [address] [place] [address] 10/07/18 documented as of this encounter
--- OUTSIDE RECORDS SUMMARY | 2024-12-28 17:57 | XMS_ITS | Encounter Summary ---
Author Organization [facility] Health Address [address] [place] [address] Care Team Providers Care Green Pipefitter Name Role Phone Luis M Kirkpatrick MD Unavailable [phone] Lucho Casas MD Unavailable [phone] Luis M Kirkpatrick MD Primary Care Provider [phone] Encounter Details Date Type Department Care Team (Late st Contact Info) Description 05/27/2023 Telephone [facility] - Endocrinology [address] [place] [address], [facility] [place] [address] Arelis Argueta MD [address] [place] [address] [place] [id number] Social History Tobacco Use Types Packs/Day Years Used Date Smoking Tobacco: Some Days Cigarettes 0.5 30 Smokeless Tobacco: Former Alcohol Use Standard Drinks/Week Comments Yes 0 (1 standard drink = 0.6 oz pur e alcohol) socially Comments No Sex and Gender Information Value Date Recorded Sex Assigned at Not on file Legal Sex Female 1:22 PM PSYCHOLOGIST CHIEF Gender Identity Not on file Sexual Orientation Not on file documented as of this encounter Miscellaneous Notes * Telephone Encounter - Arelis Argueta MD - 05/29/2023 12:08 PM CST Done HOLOGIST CHIEF * Telephone Encounter - Lia Grier LPN [...] doesn't want to go to the ER HOLOGIST CHIEF * Telephone Encounter - Tarsha Cedillo - 05/27/2023 11:51 AM CST Current Provider name: Dr. Kendall Infante/Staff Reason for call: Ms. Whit Segovia is calling re: her blood sugar running between 400 and 500 for a few weeks, currently her level is at 499, 11:20AM, 05/27/2023. Please give her a call SHE. shE YADI CURRENTLY has an abscess and is taking antibiotics, with two doses remaining Patient Call Back number: [phone] HOLOGIST CHIEF documented in this encounter Plan of Treatment Not on file documented as of this encounter Visit Diagnoses Not on filedocumented in this encounter Care Teams Green Pipefitter Relationship Specialty Start Date End Date Luis M Kirkpatrick MD [address] [place] [address] PCP - General 11/26/21 Luis M Kirkpatrick MD [address] [place] [address] 04/16/21 Lucho Casas MD [address] [place] [address] 10/07/18 documented as of this encounter
--- OUTSIDE RECORDS SUMMARY | 2024-12-28 17:57 | XMS_ITS | Clinical Summary ---
Author Organization [facility] Address [address] [place] [address] Care Team Providers Care Mail Handler Equipment Operator Name Role Phone Luis M Kirkpatrick MD Unavailable [phone] Lucho Casas MD Unavailable Luis M Kirkpatrick MD Primary Care Provider [phone] Source Comments [facility],non-owned Affiliates and Associated Physician Practices is amultiple site organization consisting of ambulatory clinics and hospital sitesin [place], [place], [place] and [place]. This disclosure is being madepursuant to the Care Everywhere program and may not contain all information available regarding this patient. Last updated 18.[facility] Allergies Active Allergy Reactions Criticality Noted [...] document. Alwaysverify current medications with the patient. Insulin Pump Accessories MISC Active FLUoxetine (PROZAC) 20 MG capsule Take 1 (one) capsule by mouth once daily 01/05/20 19 Active gabapentin (NEURONTIN) 300 MG capsule Take 1 (one) capsule by mouth 2 times daily as needed 60 capsule 3 06/04/20 21 Active Eliquis 5 MG tablet Take 1 (one) tablet by mouth every 12 hours 03/24/20 23 Active sotalol (Betapace) 80 MG tablet Take 1 (one) tablet by mouth every 12 hours 03/24/20 23 Active lisinopril (Prinivil; Zestril) 10 MG tabletIndicatio ns:DM (diabetes mellitus) type II, controlled, with peripheral vascular disorder (HCC) Take 1 (one) tablet by mouth once daily 90 tablet 3 04/07/20 23 Active blood glucose test stripIndication s:DM (diabetes mellitus) type II, controlled, with peripheral vascular disorder (HCC) Use 1 (one) strip 4 times daily - before meals & nightly One touch ultra test strip. May substitute 100 strip 11 05/29/20 Active insulin pen needle (B-D UF III MINI PEN NEEDLES) 31G X 5 MM needleIndicatio ns:DM (diabetes mellitus) type II, controlled, with peripheral vascular disorder (HCC) by Injection route once daily May substitute 100 Each 11 05/29/20 23 Active albuterol HFA (Proventil; Ventolin; Proair) 108 (90 Base) MCG/ACT inhaler INHALE 1 TO 2 PUFFS BY MOUTH EVERY 6 TO 8 HOURS NEEDED Active insulin glargine (Lantus/Semglee ) 100 units/mL pen Inject 40 (forty) Units subcutaneously 2 times daily 90 mL 3 06/09/20 23 Active dulaglutide (Trulicity) 3 MG/0.5ML injection Inject 0.5 mL subcutaneously every 7 days 6 mL 08/17/19 24 Active metFORMIN (Glucophage) 1000 MG tablet Take 1 (one) tablet by mouth 2 times daily 60 tablet 11 08/17/19 24 Active simvastatin (Zocor) 40 MG tablet Take 1 (one) tablet by mouth at bedtime 90 tablet 08/17/19 24 Active insulin lispro (HumaLOG;ADMelo g) 100 UNIT/ML pen INJECT 22 UNITS UNDER THE SKIN THREE TIMES DAILY BEFORE BREAKFAST, LUNCH, AND BEDTIME 3 mL 3 08/27/19 24 Active tirzepatide (Mounjaro) 5 MG/0.5ML injection Inject 5 (five) mg subcutaneously every 7 days 6 mL 3 09/15/19 24 Active Active Problems Problem Noted Date Diagnosed [...] 19 Type 2 diabetes mellitus 11/14/2011 Immunizations Immunization Administration Dates Next Due iNFLUENZA VACCINE, RECOM-YU, [...] Recorded Patient Health Questionnaire-2 Score 0 06/09/2023 Comments No Sex and Gender Information Value Date Recorded Sex Assigned at Not on file Legal Sex Female 1:22 PM TELECOMMUNICATIONS ENGINEER Gender Identity Not on file Sexual Orientation Not on file Last Filed Vital Signs Vital Sign Reading Time Taken Comments Blood Pressure 146/85 09/15/2023 11:07 AM TELECOMMUNICATIONS ENGINEER Pulse 93 09/15/2023 11:07 AM TELECOMMUNICATIONS ENGINEER Temperature 36.5 C (97.7 F) 06/09/2023 10:42 AM TELECOMMUNICATIONS ENGINEER Respiratory Rate 18 06/09/2023 10:42 AM TELECOMMUNICATIONS ENGINEER Oxygen Saturation 96% 09/15/2023 11:07 AM TELECOMMUNICATIONS ENGINEER Inhaled Oxygen Concentration - - Weight 105.2 kg (232 lb) 09/15/2023 11:07 AM TELECOMMUNICATIONS ENGINEER Height 165.1 cm (5' 5) 09/15/2023 11:07 AM TELECOMMUNICATIONS ENGINEER Body Mass Index 38.61 09/15/2023 11:07 AM TELECOMMUNICATIONS ENGINEER Plan of Treatment Health Maintenance Due Date Last Done Comments COLOGUARD (AGES 45-75) - COLON CA SCREENING 1969 COLON MONITORING 1969 COLONOSCOPY - COLON CA SCREENING 1969 CT COLONOGRAPHY - COLON CA SCREENING 1969 Colorectal Cancer Screening 1969 FIT - COLON CA SCREENING 1969 FLEX SIG - COLON CA SCREENING 1969 MAMMOGRAM 1969 PAP SMEAR 1969 HIV SCREENING 02/10/1984 HEPATITIS C SCREENING 02/05/1987 DTAP/TDAP/TD VACCINES (1 - Tdap) 02/10/1988 HEPATITIS B VACCINE (1 of 3 - 19+ 3-dose series) 02/10/1988 PNEUMOCOCCAL VACCINE 50+ (1 of 2 - PCV) 02/10/1988 ZOSTER VACCINE (1 of 2) 2019 DIABETES RETINOPATHY SCREENING 02/11/2021 02/11/2019, 02/11/2019 DIABETES-FOOT EXAM WITH MONOFILAMENT 07/30/2022 07/30/2021, 07/16/2020, 05/26/2019 DIABETES-HGB A1C 11/13/2023 08/14/2023, , 02/17/2023, Additional history exists DIABETES-SERUM CREATININE 02/23/20242022, 02/22/2023, 02/21/2023, Additional history exists COVID-19 VACCINE ( - season) 2024 DEPRESSION SCREENING 07/20/2024 06/09/2023 DIABETES - URINE PROTEIN SCREENING 07/20/2024 01/28/2022 INFLUENZA VACCINE (Season Ended) 2025 08/16/2023, 06/04/2021 HIB VACCINE Aged Out No longer eligi ble based on patient's age to complete this topic HPV VACCINE Aged Out No longer eligi ble based on patient's age to complete this topic MENINGOCOCCAL (Group B) VACCINE SHARED DECISION-MAKING Aged Out No longer eligible based on patient's age to complete this topic MENINGOCOCCAL GROUPS A/C/Y/W VACCINE Aged Out No longer eligible based on patient's age to complete this topic Procedures Procedure Name Priority Date/Time Associated Diagnosis Comments HEMOGLOBIN A1C - POINT OF CARE (AMB) [facility] Routine 06/09/2023 11:02 AM TELECOMMUNICATIONS ENGINEER Diabetes mellitus type 2, insulin dependent MICROALB/CREAT RATIO URINE RANDOM PANEL Routine 01/28/2022 1:09 PM CDT Diabetes mellitus type 2, insulin dependent COMPREHENSIVE METABOLIC PANEL Routine 01/28/2022 1:09 PM CDT Diabetes mellitus type 2, insulin dependent from Last 3 Months or Most Recently Relevant to Health Maintenance Results * HEMOGLOBIN A1C - POINT OF CARE (AMB) [facility] (06/09/2023 11:02 AM TELECOMMUNICATIONS ENGINEER) Hemoglobin A1c POCT 11.9 % [address] BLOOD SPECIMEN / Unknown 06/09/2023 11:02 AM TELECOMMUNICATIONS ENGINEER us Arelis Argueta MD LAB - POINT OF CARE ORDERABLES Final Result [address], [place] [address], [facility] [phone] * MICROALB/CREAT RATIO URINE RANDOM PANEL (01/28/2022 1:09 PM CDT) Albumin Random Urine 6.3 Not Established ug/mL 01/28/2022 1:54 PM CDT [facility] Creatinine Urine 54 Not Established mg/dL 01/28/2022 1:54 PM CDT [facility] Urine Albumin/Creati nine Ratio 12 <30 mg/g 01/28/2022 1:54 PM CDT [facility] Urine URINE SPECIMEN OBTAINED BY CLEAN CATCH PROCEDURE / Unknown Collection / Unknown 01/28/2022 1:09 PM CDT 01/28/2022 1:29 PM CDT us Emma Vieira MD LAB - URINE CHEMISTRY ORDERABLES Final Result [facility] [address] [place] [address], [facility] [phone] * (ABNORMAL) COMPREHENSIVE METABOLIC PANEL (01/28/2022 1:09 PM [facility]) BUN 9 7 - 26 mg/dL 01/28/2022 2:02 PM [facility] Creatinine 0.50(L) 0.56 - 0.96 mg/dL 01/28/2022 2:02 PM [facility] Sodium 142 136 - 145 mmol/L 01/28/2022 2:02 PM [facility] Potassium 3.7 3.5 - 4.5 mmol/L 01/28/2022 2:02 PM [facility] Chloride 102 98 - 107 mmol/L 01/28/2022 2:02 PM [facility] CO2 27 22 - 29 mmol/L 01/28/2022 2:02 PM [facility] Glucose 97 70 - 115 mg/dL 01/28/2022 2:02 PM [facility] Calcium 9.6 8.4 - 10.2 mg/dL 01/28/2022 2:02 PM [facility] Protein Total 7.5 6.0 - 8.3 g/dL 01/28/2022 2:02 PM [facility] Albumin 4.1 3.4 - 5.0 g/dL 01/28/2022 2:02 PM [facility] Bilirubin Total 0.6 0.2 - 1.2 mg/dL 01/28/2022 2:02 PM [facility] Alkaline Phosphatase 65 40 - 150 U/L 01/28/2022 2:02 PM [facility] ALT 17 5 - 55 U/L 01/28/2022 2:02 PM [facility] AST 16 5 - 34 U/L 01/28/2022 2:02 PM [facility] Anion Gap 17 8 - 18 01/28/2022 2:02 PM [facility] BUN/Creatinine Ratio 18 7 - 23 01/28/2022 2:02 PM [facility] Osmolality Calculated 293 270 - 300 mOsm/kg 01/28/2022 2:02 PM T [facility] Albumin/Globulin Ratio 1.2 1.1 - 2.3 01/28/2022 2:02 PM T [facility] eGFR by CKD-EPI >90 >=90 mL/min/1.7 3 m2 01/28/2022 2:02 PM T [facility] Blood BLOOD SPECIMEN / Unknown Lab Venipuncture / Unknown 01/28/2022 1:09 PM CDT 01/28/2022 1:33 PM CDT Emma Vieira MD LAB - CHEMISTRY ORDERABLES Final Result [facility] [address] [place] [address], [facility] [phone] from Last 3 Months or Most Recently Relevant to Health Maintenance Insurance [id number] [place] [address] [id number] [place] [address] [facility] Care Teams Mail Handler Equipment Operator Relationship Specialty Start Date End Date Luis M Kirkpatrick MD [address] [facility] [address] [place] [address] PCP - General 11/26/21 Luis M Kirkpatrick MD [address] [place] [address] 04/16/21 Lucho Casas MD [address] [place] [address] 10/07/18
--- OUTSIDE RECORDS SUMMARY | 2024-12-28 17:57 | XMS_ITS | Clinical Summary ---
Author Organization [facility] Physician Office Building [address] [place] [address] Care Team Providers Care Transmission Engineer Name Role Phone Juan Pablo Forbes DO Unavailable [phone] Connor Barton MD Unavailable [phone] No, Physician Primary Care Provider [phone] Allergies Active Allergy Reactions Criticality Noted Date Comments Bacitracin Vomiting Low 03/16/2018 Sulfamethoxazole-Trimethoprim Diarrhea,Vomiting Low 05/13/2022 Celecoxib Nausea & Vomiting Low 03/16/2018 Clindamycin Hives Medium 03/16/2018 Propoxyphene-Acetaminophen Nausea & Vomiting Low Medications blood glucose diagnostic stripIndication s:Type 2 diabetes mellitus with hyperglycemia, with long-term current use of insulin ([facility]) accu-check guide test strips test blood sugars five times every day dx:E11.65 insulin dependent 150 each 3 8 Active FLUoxetine (PROzac) 20 mg capsule Take 1 capsule (20 mg total) by mouth 2 (two) times a day 0 8 Active metFORMIN (GLUCOPHAGE) 1,000 mg tabletIndicatio ns:Type 2 diabetes mellitus with hyperglycemia, with long-term current use of insulin ([facility]) TAKE 1 TABLET(1000 MG) BY MOUTH [...] Scale Insulin Instructions. 15 mL 12 4 Active Active Problems Problem Noted Date Diagnosed Date Diabetic ketoacidosis withou t coma associated with type 2 diabetes mellitus 08/14/2023 Cellulitis of female genitalia 02/16/2023 Proteinuria due to type 2 diabetes mellitus 03/21 Type 2 diabetes mellitus wit h hyperglycemia, with long-term current use of insulin 03/17/2018 Assessment & Plan (08/20/2018 4:20 PM JIG AND FIXTURE BUILDER APPRENTICE): Diabetes is improving with treatment. Reviewed insulin [...] . Assessment & Plan (06/21/2018 7:03 AM JIG AND FIXTURE BUILDER APPRENTICE): Diabetes is improving with treatment. Reviewed insulin [...] . Assessment & Plan (05/23/2018 8:52 PM JIG AND FIXTURE BUILDER APPRENTICE): Diabetes is improving with treatment. A1c - [...] type 2, - patho physiology, short and assisted complications of uncontrolled DM, diet and exercise , importance on of BS monitoring, medications options - discussed goal BS and A1c targets - advise to start checking BS - before Meals and bedtime - advise to work on healthy diet, avoid processed foods , increase vegetables and protein and cut back on carb portions and also avoid fruit juices and regular soda and desserts - strongly advised pt to start checking [...] 03/17/2018 Assessment & Plan (08/20/2018 4:21 PM JIG AND FIXTURE BUILDER APPRENTICE): Hypertension is chronic, well controlled Continue current treatment regimen. Dietary sodium restriction. Weight loss. Regular aerobic exercise. Continue current medications. Blood pressure will be reassessed at the next regular appointment. Assessment & Plan (06/21/2018 7:04 AM JIG AND FIXTURE BUILDER APPRENTICE): Hypertension is chronic, well controlled Continue current [...] Hyperlipidemia associated with type 2 diabetes [place] urszula 03/17/2018 Assessment & Plan (08/20/2018 4:21 PM JIG AND FIXTURE BUILDER APPRENTICE): Pt. On statin therapy Nutrition counseling provided Advised to increase aerobic exercise Assessment & Plan (06/21/2018 7:04 AM JIG AND FIXTURE BUILDER APPRENTICE): Pt. On statin therapy Nutrition counseling provided Advised to increase aerobic exercise Assessment & Plan (03/17/2018 7:44 AM CDT): Pt. On statin therapy Nutrition counseling provided Advised to increase aerobic exercise Insulin pump status 03/17/2018 Assessment & Plan (08/20/2018 4:21 PM JIG AND FIXTURE BUILDER APPRENTICE): Have long acting , basal insulin ( [...] 02/18 Assessment & Plan (08/20/2018 4:21 PM JIG AND FIXTURE BUILDER APPRENTICE): Obesity is improving with lifestyle modifications. Discussed [...] discussed. Assessment & Plan (06/21/2018 7:04 AM JIG AND FIXTURE BUILDER APPRENTICE): Obesity is improving with lifestyle habits Discussed [...] elevator. Regular aerobic exercise program discussed. Immunizations Immunization Administration Dates Next Due Influenza, Quadrivalent, Spl [...] Used Date Smoking Tobacco: Every Day Cigarettes 0.3 44.4 Started: 1980 Smokeless Tobacco: Never Tobacco Cessation:Ready [...] often do you attend chur ch or hindu services? 1 to 4 times per year 02/17/2023 Do you belong to any clubs o r organizations such as gnosticist groups, unions, fraternal or athletic groups, or [...] money to buy more. Never true 02/18/20 Within the past 12 months, t he [...] place to sleep or slept in a detention (including now)? No 02/17/2023 Personal Safety Answer Date Recorded Have you ever been in or are you currently in a harmful physical or emotional relationship or is someone making you feel afraid or unsafe? Denies 08/15/2023 Comments No Sex and Gender Information Value Date Recorded Sex Assigned at Not on file Legal Sex Female 6:30 AM JIG AND FIXTURE BUILDER APPRENTICE Gender Identity Not on file Sexual Orientation Not on file Obstetrics History Last Filed Vital Signs Vital Sign Reading Time Taken Comments Blood Pressure 153/90 08/16/2023 7:30 AM JIG AND FIXTURE BUILDER APPRENTICE Pulse 87 08/16/2023 7:30 AM JIG AND FIXTURE BUILDER APPRENTICE Temperature 36.8 C (98.2 F) 08/16/2023 7:30 AM JIG AND FIXTURE BUILDER APPRENTICE Respiratory Rate 18 08/16/2023 7:30 AM JIG AND FIXTURE BUILDER APPRENTICE Oxygen Saturation 99% 08/16/2023 7:30 AM JIG AND FIXTURE BUILDER APPRENTICE Inhaled Oxygen Concentration - - Weight 100.7 kg (222 lb 0.1 oz) 024 11:25 PM JIG AND FIXTURE BUILDER APPRENTICE Height 165.1 cm (5' 5) 08/14/2023 11:2 5 PM JIG AND FIXTURE BUILDER APPRENTICE Body Mass Index 36.94 08/14/2023 11:25 PM JIG AND FIXTURE BUILDER APPRENTICE Plan of Treatment Health Maintenance Due Date Last Done Comments Albumin Creatinine Ratio, Urine 1970 Breast Cancer Screening-Mammogram 1969 Cervical Cancer Screening 1969 Colon Cancer Screening-Colonoscopy 1969 Hepatitis C Screening 1969 Dilated Eye Exam 1969 DTaP/Tdap/Td Vaccine (1 - Tdap) 02/10/1980 Hepatitis B Screening 1987 Regular Well Visit/Exam 18-64 1987 Pneumococcal vaccine <65 (1 of 2 - PCV) 02/10/1988 Lipid Panel 03/16/2019 03/16/2018 Depression Screening 06/18/2019 06/18/2018, 05/18/2018, 04/14/2018, Additional history exists Foot Exam 08/20/2019 08/20/2018, 05/22, 05/18/2018, Additional history exists Hemoglobin A1C 02/12/2024 08/14/2023, 08/0 07/2022, 12/27/2019, Additional history exists Covid-19 Vaccine (2023-2 5 season) 2024 12/21/2021, 08/03/2021 eGFR 08/15/2024 08/15/2023, 07/21, 08/14/2023, Additional history exists Influenza Vaccine (Season Ended) 2025 08/16/19 24, 06/04/2021 Zoster Vaccine Completed 02/19/2022, 12/21/2021 Procedures Procedure Name Priority Date/Time Associated Diagnosis Comments EGFR Routine 08/15/2023 4:36 AM JIG AND FIXTURE BUILDER APPRENTICE HEMOGLOBIN A1C STAT 08/14/2023 6:14 PM JIG AND FIXTURE BUILDER APPRENTICE POCT LIPID PANEL Routine 03/16/2018 1:50 PM CDT Type 2 diabetes mellitus with hyperglycemia, with long-term current use of insulin (HCC) from Last 3 Months or Most Recently Relevant to Health Maintenance Results * eGFR (08/15/2023 4:36 AM JIG AND FIXTURE BUILDER APPRENTICE) eGFR 118 mL/min/1. 73 m2 [facility] Comment: Interpretive Data Reference Interval Normal >/= 90 mL/min/1.73m2 Mildly decreased* 60 - 89 mL/min/1.73m2 Mildly to moderately decreased 45 - 59 mL/min/1.73m2 Moderately to severely decreased 30 - 44 mL/min/1.73m2 Severely decreased 15 - 29 mL/min/1.73m2 Kidney Failure < 15 mL/min/1.73m2 *Relative to young adult level Estimated glomerular filtration rate is determined by the 2020 CKD-EPI equation recommended by the National Kidney Foundation (A Unifying Approach to GFR Estimation: Recommendations of the NKF-ASK Task Force on Reassessing the Inclusion of Race in Diagnosing Kidney Disease, JIMMYSMary 2020). The CKD-EPI equation should not be used for patients with unstable renal function and has not been validated in children and those over 70. Current interpretive data was last reviewed 2021. Blood 08/15/2023 4:36 AM JIG AND FIXTURE BUILDER APPRENTICE 08/15/2023 4:36 AM JIG AND FIXTURE BUILDER APPRENTICE Drew Early MD LAB BLOOD ORDERABLES Final R esult Performing Organization Address City/[facility] Co de Phone Number [facility] [address] [facility] [place] [address] * (ABNORMAL) Hemoglobin A1c (08/14/2023 6:14 PM JIG AND FIXTURE BUILDER APPRENTICE) Hgb A1C 11.5(H) 4.0 - 5.6 % [facility] Comment:Testing performed by : [address] [address] Estimated Average Glucose 283 mg/dL [facility] Comment: The ADA recommends reporting an estimated Average Glucose (eAG) with all Hemoglobin A1c results using the equation derived from a study of 507 normal and diabetic adults. Minority populations were underrepresented and children were not included. (Diabetes Care 31:1295-9805, 2008). The eAG is not equivalent to a fasting glucose. Testing performed by: [address] [address] Blood 08/14/2023 6:14 PM JIG AND FIXTURE BUILDER APPRENTICE 08/14/2023 6:15 PM JIG AND FIXTURE BUILDER APPRENTICE Luis Fernando Barragan DO LAB BLOOD ORDERABLES Final Result Performing Organization Address [facility] Co de Phone Number [facility] [address] [facility] [place] [address] * POCT lipid panel (03/16/2018 1:50 PM CDT) Cholesterol, POC 185 mg/dL HDL, POC 40 mg/dL Triglycerides, POC 231 mg/dL LDL Cholesterol POC 99 mg/dL Blood specimen (specimen) 03/16/2018 1:50 PM CDT Connor Ramirez MD POINT OF CARE TEST ORDERABLES Final Result from Last 3 Months or Most Recently Relevant to Health Maintenance Additional Health Concerns Infection Onset Date Last 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
--- OUTSIDE RECORDS SUMMARY | 2024-12-28 17:57 | XMS_ITS | Encounter Summary ---
Author Organization [facility] Health Address [address] [place] [address] Care Team Providers Care Spanish Speaking Nanny Name Role Phone Luis M Kirkpatrick MD Unavailable [phone] Lucho Casas MD Unavailable [phone] Luis M Kirkpatrick MD Primary Care Provider [phone] Encounter Details Date Type Department Care Team (Late st Contact Info) Description 05/29/2023 Telephone [facility] - Endocrinology [address] [place] [address], [place] [address] Sobia Meza MD [address] [place] [phone] Social History Tobacco Use Types Packs/Day Years Used Date Smoking Tobacco: Some Days Cigarettes 0.5 30 Smokeless Tobacco: Former Alcohol Use Standard Drinks/Week Comments Yes 0 (1 standard drink = 0.6 oz pur e alcohol) socially Comments No Sex and Gender Information Value Date Recorded Sex Assigned at Not on file Legal Sex Female 1:22 PM CATCHER HELPER Gender Identity Not on file Sexual Orientation Not on file documented as of this encounter Miscellaneous Notes * Telephone Encounter - Riggs Elana - 05/29/2023 8:32 AM CST Patient called in requesting a Med refill. Drug type:LANTUS PEN, ONE TOUCH ULTRA STRIPS, AND PEN NEEDLES BUT MAY NEED A SUBSTITUTE BRAND OF PEN NEEDLES DUE TO INSURANCE NOT COVERING. Pharmacy:[id number] - [address] [facility] [phone] [facility] [place] [address] Patient call back number: [phone] . PATIENT ALSO STATES HER BLOOD SUGAR IS STILL IN THE 300'S AND WOULD LIKE A CALL FROM THE OFFICE. HER HELPER documented in this encounter Plan of Treatment Not on file documented as of this encounter Visit Diagnoses Not on filedocumented in this encounter Care Teams Spanish Speaking Nanny Relationship Specialty Start Date End Date Luis M Kirkpatrick MD [address] [place] [address] PCP - General 11/26/21 Luis M Kirkpatrick MD [address] [place] [address] 04/16/21 Lucoh Casas MD [address] [place] [address] 10/07/18 documented as of this encounter
--- OUTSIDE RECORDS SUMMARY | 2024-12-28 17:57 | XMS_ITS | Continuity of Care Document ---
Author Organization [facility] Address [address] [place] [address] [place] [address] Phone Care Team Providers Care Fashion Patternmaker Name Role Phone Gage Kaiser Unavailable Unavailable Procedures Procedure Date Eye Exam & Treatment Refraction Eye Exam, New Patient Advance Directives Directive Yes / No Effective Date File Name No Information Encounters Encounter Description Practice Location Reason(s) For Visit Diagnoses Date Provider Providers Copied on Encounter [facility], [address] [place] [address] [address], [place], [place], [id number], tel:[phone] [facility] No Information 8-201 0 Krishnasamy Gage. [address] [address], [place], [place], [facility], [place]. tel:[phone] [facility], [address] [place] [address] [address], [place], [place], [id number], tel:[phone] [facility] No Information 0-200 9 Krishnasamy Gage. [address] [facility] [address], [place], [address], [place]. tel:[phone] Family History Family Member Type Diagnosis Age At Onset No Information Payers Payer name Insurance type Covered democrat ID Authortaylora bill(s) Medicaid [facility] [id number] Social History Type Description Quantity Date Captured [...]
--- OUTSIDE RECORDS SUMMARY | 2024-12-28 17:57 | XMS_ITS | Encounter Summary ---
Author Organization [facility] Health Address [address] [facility] [place] [address] Care Team Providers Care Pcat Instructor Name Role Phone Luis M Kirkpatrick MD Unavailable [phone] Lucho Casas MD Unavailable [phone] Luis M Kirkpatrick MD Primary Care Provider [phone] Encounter Details Date Type Department Care Team (Late st Contact Info) Description 05/13/2023 Telephone [facility] - Endocrinology [address] [place] [address], [place] [address] Arelis Argueta MD [address] [place] [address] [place] [phone] Social History Tobacco Use Types Packs/Day Years Used Date Smoking Tobacco: Some Days Cigarettes 0.5 30 Smokeless Tobacco: Former Alcohol Use Standard Drinks/Week Comments Yes 0 (1 standard drink = 0.6 oz pur e alcohol) socially Comments No Sex and Gender Information Value Date Recorded Sex Assigned at Not on file Legal Sex Female 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 Can you please let her know. [...] Thanks so much. Patient Call Back number: [phone] documented in this encounter Plan of Treatment Not on file documented as of this encounter Visit Diagnoses Not on filedocumented in this encounter Care Teams Pcat Instructor Relationship Specialty Start Date End Date Luis M Kirkpatrick MD [address] [place] [address] PCP - General 11/26/21 Luis M Kirkpatrick MD [address] [place] [address] 04/16/21 Lucho Casas MD [address] [place] [address] 10/07/18 documented as of this encounter
--- OUTSIDE RECORDS SUMMARY | 2024-12-28 17:57 | XMS_ITS | Referral Summary ---
Author Organization [facility] Phys[facility] [address] [place] [address] Care Team Providers Care Piercing Artist Name Role Phone Juan Pablo Forbes DO Unavailable [phone] Connor Barton MD Unavailable [phone] No, Physician Primary Care Provider [phone] Allergies Active Allergy Reactions Criticality Noted Date Comments Bacitracin Vomiting Low 03/16/2018 Sulfamethoxazole-Trimethoprim Diarrhea,Vomiting Low 05/13/2022 Celecoxib Nausea & Vomiting Low 03/16/2018 Clindamycin Hives Medium 03/16/2018 Propoxyphene-Acetaminophen Nausea & Vomiting Low Medications blood glucose diagnostic stripIndication s:Type 2 diabetes mellitus with hyperglycemia, with long-term current use of insulin ([facility]) accu-check guide test strips test blood sugars five times every day dx:E11.65 insulin dependent 150 each 3 8 Active FLUoxetine (PROzac) 20 mg capsule Take 1 capsule (20 mg total) by mouth 2 (two) times a day 0 8 Active metFORMIN (GLUCOPHAGE) 1,000 mg tabletIndicatio ns:Type 2 diabetes mellitus with hyperglycemia, with long-term current use of insulin ([facility]) TAKE 1 TABLET(1000 MG) BY [...] 03/17/2018 Assessment & Plan (08/20/2018 4:20 PM TEACHERS' ASSISTANT): Diabetes is improving with treatment. Reviewed insulin [...] . Assessment & Plan (06/21/2018 7:03 AM TEACHERS' ASSISTANT): Diabetes is improving with treatment. Reviewed insulin [...] . Assessment & Plan (05/23/2018 8:52 PM TEACHERS' ASSISTANT): Diabetes is improving with treatment. A1c - [...] 03/17/2018 Assessment & Plan (08/20/2018 4:21 PM TEACHERS' ASSISTANT): Hypertension is chronic, well controlled Continue current treatment regimen. Dietary sodium restriction. Weight loss. Regular aerobic exercise. Continue current medications. Blood pressure will be reassessed at the next regular appointment. Assessment & Plan (06/21/2018 7:04 AM TEACHERS' ASSISTANT): Hypertension is chronic, well controlled Continue current [...] 03/17/2018 Assessment & Plan (08/20/2018 4:21 PM TEACHERS' ASSISTANT): Pt. On statin therapy Nutrition counseling provided Advised to increase aerobic exercise Assessment & Plan (06/21/2018 7:04 AM TEACHERS' ASSISTANT): Pt. On statin therapy Nutrition counseling provided Advised to increase aerobic exercise Assessment & Plan (03/17/2018 7:44 AM CDT): Pt. On statin therapy Nutrition counseling provided Advised to increase aerobic exercise Insulin pump status 03/17/2018 Assessment & Plan (08/20/2018 4:21 PM TEACHERS' ASSISTANT): Have long acting , basal insulin ( [...] 02/18 Assessment & Plan (08/20/2018 4:21 PM TEACHERS' ASSISTANT): Obesity is improving with lifestyle modifications. Discussed [...] discussed. Assessment & Plan (06/21/2018 7:04 AM TEACHERS' ASSISTANT): Obesity is improving with lifestyle habits Discussed [...] often do you attend chur ch or temple services? 1 to 4 times per year 02/17/2023 Do you belong to any clubs o r organizations such as cheondoism groups, unions, fraternal or athletic groups, or [...] on file Legal Sex Female 6:30 AM TEACHERS' ASSISTANT Gender Identity Not on file Sexual Orientation Not on file Last Filed Vital Signs Vital Sign Reading Time Taken Comments Blood Pressure 153/90 08/16/2023 7:30 AM TEACHERS' ASSISTANT Pulse 87 08/16/2023 7:30 AM TEACHERS' ASSISTANT Temperature 36.8 C (98.2 F) 08/16/2023 7:30 AM TEACHERS' ASSISTANT Respiratory Rate 18 08/16/2023 7:30 AM TEACHERS' ASSISTANT Oxygen Saturation 99% 08/16/2023 7:30 AM TEACHERS' ASSISTANT Inhaled Oxygen Concentration - - Weight 100.7 kg (222 lb 0.1 oz) 024 11:25 PM TEACHERS' ASSISTANT Height 165.1 cm (5' 5) 08/14/2023 11:2 5 PM TEACHERS' ASSISTANT Body Mass Index 36.94 08/14/2023 11:25 PM TEACHERS' ASSISTANT Plan of Treatment Not on file Procedures Procedure Name Priority Date/Time Associated Diagnosis Comments EGFR Routine 08/15/2023 4:36 AM TEACHERS' ASSISTANT HEMOGLOBIN A1C STAT 08/14/2023 6:14 PM TEACHERS' ASSISTANT POCT LIPID PANEL Routine 03/16/2018 1:50 PM CDT Type 2 diabetes mellitus with hyperglycemia, with long-term current use of insulin (HCC) from Last 3 Months or Most Recently Relevant to Health Maintenance Results * eGFR (08/15/2023 4:36 AM TEACHERS' ASSISTANT) eGFR 118 mL/min/1. 73 m2 [facility] [...] last reviewed 2021. Blood 08/15/2023 4:36 AM TEACHERS' ASSISTANT 08/15/2023 4:36 AM TEACHERS' ASSISTANT Drew Early MD LAB BLOOD ORDERABLES Final R esult [facility] [address] [facility] Department [place] [address] * (ABNORMAL) Hemoglobin A1c (08/14/2023 6:14 PM TEACHERS' ASSISTANT) [facility] Hgb A1C 11.5(H) 4.0 - 5.6 % JER Comment:Testing performed by : [address] [address] Estimated Average Glucose 283 mg/dL JER Comment: The ADA recommends reporting an estimated Average Glucose (eAG) with all Hemoglobin A1c results using the equation derived from a study of 507 normal and diabetic adults. Minority populations were underrepresented and children were not included. (Diabetes Care 31:2730-5939, 2008). The eAG is not equivalent to a fasting glucose. Testing performed by: [address] [address] Blood 08/14/2023 6:14 PM TEACHERS' ASSISTANT 08/14/2023 6:15 PM TEACHERS' ASSISTANT us Luis Fernando Barragan DO LAB BLOOD ORDERABLES Final Result [facility] [address] [facility] Department [place] [address] * POCT lipid panel (03/16/2018 1:50 PM [...] Indicated MDR gram neg/ESBL 05/16/2023 05/16/2023 Insurance [facility] Advance Directives For more information, please contact: [phone] * Full Code (Latest Code Status on File) Date Activated Date Inactivated Comments 08/14/2023 11:22 PM 08/16/2023 3:36 PM * Full Code Date Activated Date Inactivated Comments 02/16/2023 10:52 PM 02/22/2023 5:12 PM Care Teams Piercing Artist Relationship Specialty Start Date End Date No, Physician PCP - General 08/14/23 Juan Pablo Forbes DO Internal Medicine 03/17/18 [place] [address] [facility] [address] [place] [address] Consulting Physician Endocrinology 09/01/18
--- OUTSIDE RECORDS SUMMARY | 2024-12-28 17:57 | XMS_ITS | Encounter Summary ---
Author Organization [facility] Health Address [address] [facility] [place] [address] Care Team Providers Care Relish Maker Name Role Phone Luis M Kirkpatrick MD Unavailable [phone] Lucho Casas MD Unavailable [phone] Luis M Kirkpatrick MD Primary Care Provider [phone] Encounter Details Date Type Department Care Team (Late st Contact Info) Description 04/23/2023 Telephone [facility] - Centralized Scheduling [address] [place] [phone] Arelis Argueta MD [address] [place] [phone] Social History Tobacco Use Types Packs/Day Years Used Date Smoking Tobacco: Some Days Cigarettes 0.5 30 Smokeless Tobacco: Former Alcohol Use Standard Drinks/Week Comments Yes 0 (1 standard drink = 0.6 oz pur e alcohol) socially Comments No Sex and Gender Information Value Date Recorded Sex Assigned at Not on file 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
--- OUTSIDE RECORDS SUMMARY | 2024-12-28 17:57 | XMS_ITS | Data Portability ---
Author Organization [place] [facility] [place], Main Office Address [address] [place] [address] Care Team Providers Care Curriculum Supervisor Name Role Phone DOMITILA DORMAN Primary Care Provider DOMITILA DORMAN Referring Provider [phone] Assessment Encounter Date Assessment Date Assessment LastModified [...] symptoms to completely resolve. She may use [id number] anti-inflammatori es or Tylenol for pain control. She does have ibuprofen 600 mg but only takes it as needed. Recommend she take it on a more regular basis to help with her symptoms. If her symptoms not improve she can call otherwise we will plan on seeing her back as needed. 20 minutes was spent treatment patient more than half of this in [id number] conversation Not available 11/07/2022 12:52:13 12/22/2024 12/22/2024 The patient has a 2 week history of swelling and pain in the right knee she states at times it will feel hot and look a little red. She has had a draining abscess in her left groin ongoing with on and off treatment since July of this year. 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 This is scheduled for the end of December. Concern is for a brewing infection in the right total knee arthroplasty. To further evaluate we will get some lab work including sed rate C-reactive protein CBC all of which may be affected by the fact that she has had a chronic infection in her groin. We will also order a CT scan of the right knee to see if we can get a good look at the implant and cement mantle to make sure this is not loosened. Loosening and failure of the implant is also in the differential diagnosis. We will send her to the hospital for a fluoroscopic guided knee aspiration we will send that fluid for aerobic anaerobic cultures Gram stain and cell count. Once we have some more information we will make a decision from there. She is currently on Keflex 500 mg q.i.d. this may affect the culture results as well unfortunately. If she does have evidence of infection surgical intervention may be required. She is aware this certainly if her symptoms worsen or change she is instructed to call immediately. She voiced understanding and agreed with the above plan. [email or web address] Not available 12/22/2024 10:29:31 Plan of Treatment Reminders Order Date Submit Date Provider Last Modified By Organization Details Last Modified Time Details Appointments None recorded. Lab CBC 2024 025 [place] [facility], [address], [place], [address], 5 09:47:15 C-reactive protein, quantitati ve, serum or plasma 2024 025 [email or web address] [facility], [address], [place], [address], 5 10:40:54 ESR (erythrocy te sedimentat ion rate), blood 2024 025 [email or web address] [facility], [address], [place], [address], 5 10:40:54 Referral None recorded. Procedures None recorded. Surgeries None recorded. Imaging CT, knee, w/o contrast - Please give patient disc 2024 025 [facility], [address], [place], [address], 5 17:35:18 XR, knee 2022 023 [email or web address] [facility], [address], [place], [address], 3 21:15:56 Medication Orders None recorded. Patient TargetsNo targets recorded. Patient InstructionsNo instructions recorded. Reason for Referral None Reported. Results Created Date Observation Date Name Description Value Unit Range Abnormal Flag Note LastModifiedBy Organization Detail LastModifiedTime 01/03/20 22 01/03/2022 [facility] BODY FLUID crystal negati ve Not Available [facility] (Lab) [address] [place], [address], 01/03/2022 11:59:16 01/03/20 22 01/02/[address] W/DIF F-AUT O color light- yellow Not Available [facility] (Lab) [address] [place], [address], 01/02/2022 21:27:26 01/03/20 22 01/02/[address] W/DIF F-AUT O appearance hazy Not Available [facility] (Lab) [address] [place], [address], 01/02/2022 21:27:26 01/03/20 22 01/02/[address] W/DIF F-AUT O volume 3.0 mL Not Available [facility] (Lab) [address] [place], [address], 01/02/2022 21:27:26 01/03/20 22 01/02/[address] W/DIF F-AUT O WBC, body fluid 1103 /uL Not Available [facility] (Lab) [address] [place], [address], 01/02/2022 21:27:26 01/03/20 22 01/02/[address] W/DIF F-AUT O WBC body fluid-DNR 1.103 Not Available [facility] (Lab) [address] [place], [address], 01/02/2022 21:27:26 01/03/20 22 01/02/[address] W/DIF F-AUT O RBC, body fluid 2000 /uL Not Available [facility] (Lab) [address] [place], [address], 01/02/2022 21:27:26 01/03/20 22 01/02/[address] W/DIF F-AUT O RBC body fluid-DNR 0.002 Not Available [facility] (Lab) [address] [place], [address], 01/02/2022 21:27:26 01/03/20 22 01/02/[address] W/DIF F-AUT O % poly 5 % Not Available [facility] (Lab) [address] [place], [address], 01/02/2022 21:27:26 01/03/20 22 01/02/[address] W/DIF F-AUT O % mono 95 % Not Available [facility] (Lab) [address] [place], [address], 01/02/2022 21:27:26 01/03/20 22 01/02/[address] W/DIF F-AUT O source synovi al Not Available [facility] (Lab) [address] [place], [address], 01/02/2022 21:27:26 01/02/20 22 01/01/2022 XR, knee, 3 view No observ ation record ed. [id number] Not Available 09/17/2022 13:35:50 11/08/19 23 XR, knee No observ ation record ed. [facility] [address], [place], [address], 11/07/2022 12:48:21 12/23/19 25 12/19/2024 XR, knee, 1 or 2 view No observ ation record ed. [email or web address] Not Available 12/22 15:44:08 Result Notes None recorded. Problems Name Problem SNOMED Code Status Onset Date Resolution Date Notes Provider Name and Address Organization Details Recorded Time Bilateral osteoarthr itis of knees 0204805661933 07 Active 2021 Not Available [facility] 3 13:34:53 Pain of right knee joint 5969625783166 00 Active 2021 Not Available [facility] 3 13:34:53 Pain of bilateral knee joints 2096999456990 04 Active 2021 Not Available [facility] 3 13:34:53 Prosthetic joint mechanical failure 560634481 Active 2024 Arleth nicole, [place] [facility] 5 09:57:54 Pain of knee region 3193631173 Active 2024 MARKIE Morataya [address] [facility] [address], [place], [address] , [facility] [place] [facility] 5 10:30:42 Problem Notes None recorded. Procedures Surgical History Date Name Laterality Status Provider Name and Address Organization Details Recorded Time Knee Surgery completed Not Available [facility] 09/17/2022 13:34:45 tonsilectomy/a denoids completed Not Available [facility] 09/17/2022 13:34:45 section completed Not Available [facility] 09/17/2022 13:34:45 Imaging Results None recorded. Procedure Notes None recorded. Medical Equipment None Reported. Allergies Allergen ID Allergen Name Allergen Category Reaction Reaction Severity Criticality Documentation Date Start Date Code Code System Note Provider Name and Address Organization Details Recorded Time 20488 lorcaseri n medicatio n Not available Not available Not available 09/17/2022 58705 01 RxNorm Not Available [facility] 3 13:35:47 72568 Bactrim medicatio n diarrhea vomiting Not available Not available Not available 09/17/2022 94826 9 RxNorm Not Available [facility] 13:35:47 09715 Celebrex medicatio n diarrhea vomiting Not available Not available Not available 12/22/2024 13072 7 RxNorm Verito Beto, [employer] null, [place] [facility] [place] [facility] 5 09:35:05 64528 clindamyc in Not available hives Not available Not available 12/22/2024 2582 RxNorm Verito Beto, [employer] null, [place] [facility] [place] [facility] 5 09:36:19 Medications Name Sig Start Date Stop Date Status Note LastModified by Organization Details LastModified Time cyclobenzap rine 10 mg tablet TAKE 1 TABLET BY MOUTH THREE TIMES DAILY NEEDED FOR MUSCLE SPASM 04/17 completed Not Available Not Available Not Available pioglitazon e 15 mg tablet TAKE 1 TABLET BY MOUTH EVERY DAY 12/22 completed Not Available Not Available Not Available doxycycline hyclate 100 mg capsule TAKE 1 CAPSULE BY MOUTH EVERY 12 HOURS 12/22 completed Not Available Not Available Not Available sotalol 80 mg tablet TAKE 1 TABLET BY MOUTH EVERY 12 HOURS active Not Available Not Available No t Available sucralfate 1 gram tablet TAKE 1 TABLET BY MOUTH FOUR TIMES DAILY 01/02 completed Not Available Not Available Not Available ondansetron HCl 4 mg tablet TAKE 1 TABLET BY MOUTH EVERY 6 HOURS NEEDED FOR NAUSEA AND VOMITING 12/22 completed Not Available Not Available Not Available prednisone 20 mg tablet TAKE 1 TABLET BY MOUTH TWICE DAILY 04/17 completed Not Available Not Available Not Available Lantus U-100 Insulin 100 unit/mL subcutaneou s solution ADMINISTE R 25 UNITS UNDER THE SKIN EVERY EVENING. DISCARD REMAINDER AFTER 28 DAYS 12/22 completed Not Available Not Available Not Available penicillin V potassium 500 mg tablet TAKE 1 TABLET BY MOUTH FOUR TIMES DAILY UNTIL GONE 12/22 completed Not Available Not Available Not Available doxycycline monohydrate 100 mg tablet TAKE 1 TABLET BY MOUTH TWICE DAILY FOR 10 DAYS 12/22 completed Not Available Not Available Not Available tramadol 50 mg tablet TAKE 1 TABLET BY MOUTH EVERY 4 TO 6 HOURS NEEDED FOR PAIN 12/22 completed Not Available Not Available Not Available simvastatin 40 mg tablet TAKE 1 TABLET BY MOUTH AT BEDTIME active Not Available Not Available No t Available doxycycline monohydrate 100 mg capsule TAKE 1 CAPSULE BY MOUTH TWICE DAILY UNTIL ALL TAKEN 12/22 completed Not Available Not Available Not Available cephalexin 500 mg capsule TAKE 1 CAPSULE BY MOUTH EVERY 8 HOURS 12/22 completed Not Available Not Available Not Available simvastatin 20 mg tablet TAKE 1 TABLET BY MOUTH AT BEDTIME 12/22 completed Not Available Not Available Not Available oseltamivir 75 mg capsule TAKE 1 CAPSULE BY MOUTH EVERY 12 HOURS 12/22 completed Not Available Not Available Not Available metformin 1,000 mg tablet TAKE 1 TABLET BY MOUTH TWICE DAILY active Not Available Not Available No t Available lisinopril 10 mg tablet TAKE 1 TABLET BY MOUTH DAILY active Not Available Not Available No t Available diclofenac potassium 50 mg tablet TAKE 1 TABLET BY MOUTH TWICE DAILY 12/22 completed Not Available Not Available Not Available gabapentin 300 mg capsule TAKE 1 CAPSULE BY MOUTH EVERY 12 HOURS active Not Available Not Available No t Available insulin lispro (U-100) 100 unit/mL subcutaneou s solution INJECT UP TO MAX AMOUNT OF 120 UNITS DAILY VIA PUMP. 12/22 completed Not Available Not Available Not Available ibuprofen 600 mg tablet TAKE 1 TABLET BY MOUTH EVERY 6 HOURS NEEDED FOR PAIN 12/22 completed Not Available Not Available Not Available levofloxaci n 500 mg tablet TAKE 1 TABLET BY MOUTH DAILY FOR 7 DAYS 12/22 completed Not Available Not Available Not Available albuterol sulfate HFA 90 mcg/actuati on aerosol inhaler INHALE 1 TO 2 PUFFS BY MOUTH EVERY 6 TO 8 HOURS NEEDED 12/22 completed Not Available Not Available Not Available ondansetron 4 mg disintegrat ing tablet DISSOLVE 1 TABLET ON THE TONGUE EVERY 8 HOURS NEEDED FOR NAUSEA OR VOMITING 12/22 completed Not Available Not Available Not Available fluoxetine 20 mg capsule TAKE 1 CAPSULE BY MOUTH DAILY active Not Available Not Available No t Available amoxicillin 875 mg-potassiu m clavulanate 125 mg tablet TAKE 1 TABLET BY MOUTH EVERY 12 HOURS 12/22 completed Not Available Not Available Not Available amoxicillin 500 mg-potassiu m clavulanate 125 mg tablet TAKE 1 TABLET BY MOUTH TWICE DAILY 12/22 completed Not Available Not Available Not Available insulin lispro (U-100) 100 unit/mL subcutaneou s pen INJECT 8 UNITS UNDER THE SKIN DIRECTED BY OFFICE. MAX DAILY DOSE OF 25 UNITS/MELANIE L AND MAX OF 75 UNITS PER DAY. active Not Available Not Available No t Available Januvia 50 mg tablet TAKE 1 TABLET BY MOUTH EVERY DAY 12/22 completed Not Available Not Available Not Available hydrochloro thiazide 12.5 mg tablet TAKE 1 TABLET BY MOUTH EVERY DAY 01/02 completed Not Available Not Available Not Available Lantus Solostar U-100 Insulin 100 unit/mL (3 mL) subcutaneou s pen ADMINISTE R 25 UNITS UNDER THE SKIN EVERY EVENING active Not Available Not Available No t Available OneTouch Verio test strips USE 1 STRIP EACH DIRECTED TO TEST FOUR TIMES DAILY active Not Available Not Available No t Available Invokana 300 mg tablet TAKE 1 TABLET BY MOUTH DAILY active Not Available Not Available No t Available OneTouch Verio Flex Meter USE DIRECTED TO TEST FOUR TIMES DAILY active Not Available Not Available No t Available TRUEplus Pen Needle 31 gauge x 12/02 USE 4 PEN NEEDLES PER DAY active Not Available Not Available No t Available TRUEplus Pen Needle 31 gauge x 10/02 USE ONCE DAILY FOR INJECTION S active Not Available Not Available No t Available Steglatro 15 mg tablet TAKE 1 TABLET BY MOUTH EVERY DAY 12/22 completed Not Available Not Available Not Available Baqsimi 3 mg/actuatio n nasal spray ADMINISTE R 1 SPRAY INTO THE NOSE NEEDED FOR SEVERE HYPOGLYCE BREE AND CORRECTIN G BY MOUTH IS NOT AN OPTION 04/17 completed Not Available Not Available Not Available Paxlovid 300 mg (150 mg x 2)-100 mg tablets in a dose pack FOLLOW PACKAGE DIRECTION S 12/22 completed Not Available Not Available Not Available Mounjaro 7.5 mg/0.5 mL subcutaneou s pen injector ADMINISTE R 7.5 MG UNDER THE SKIN ONCE WEEKLY 12/22 completed Not Available Not Available Not Available Mounjaro 5 mg/0.5 mL subcutaneou s pen injector ADMINISTE R 5 MG UNDER THE SKIN EVERY 7 DAYS 12/22 completed Not Available Not Available Not Available Dexcom G7 Sensor device USE 1 EACH DIRECTED TO CHECK BLOOD SUGAR THREE TIMES DAILY AND REPLACE EVERY 10 DAYS. active Not Available Not Available No t Available Vitals Date Recorded Body height Provider Name an d Address Organization Details Last Updated DateTime 11/07/2022 162.56 cm MALENA Valencia [facility] Room 11/07/2022 12:10:12 Date Recorded Body height Body mass index (BMI) Body weight Provider Name and Address Organization Details Last Updated DateTime 12/22/2024 165.1 cm 34.1 kg/m2 81924.44 g Verito Pérez [facility] [place] [facility] Room 12/22/2024 09:34:11 Date Recorded Body mass index (BMI) Body height Body weight Provider Name and Address Organization Details Last Updated DateTime 01/02/2022 43.1 kg/m2 162.56 cm 892207.68 g Not Available [facility] 09/17/2022 13:34:47 Date Recorded Body height Provider Name an d Address Organization Details Last Updated DateTime 01/16/2022 162.56 cm Not Available [facility] 13:34:47 Date Recorded Body height Provider Name an d Address Organization Details Last Updated DateTime 04/17/2022 162.56 cm Not Available [facility] 13:34:47 Social History Question Answer Notes LastModified by Organizat [employer] Details LastModified Time Tobacco Smoking Status Current Every Day Smoker Not Available [facility] 09/17/2022 13:34:41 How Much Tobacco Do You Smoke? 0.5 PPD Information not available 12/22/2024 How Many Years Have You Smoked Tobacco? 30 Information not available 12/22/2024 Sex: Unknown Functional Status Question Answer Note LastModified by Organizat [employer] Details LastModified Time What is your level of alcohol consumption? Occasional [id number] Information not available 09/17/2022 Mental Status None recorded. Family History Nothing Reported. Medical History Condition Response BLINDNESS N KIDNEY STONES N MRSA N CARPAL TUNNEL SYNDROME N LUNG DISEASE/DISORDER N HISTORY OF DRUG ABUSE N RADIATION / CHEMOTHERAPY N COPD N SPORTS INJURY N ANKLE PAIN N BLOOD DISEASES N SCHIZOPHRENIA N SHINGLES N BOWEL PROBLEMS N SHOULDER PAIN N DEPRESSION (INCLUDING POST ) N STROKE/TIA N KNEE PAIN N ULCERS N BENIGN PROSTATIC HYPERPLASIA N OBESITY N GERD/NAUSEA N ANEURYSM N URINARY/BLADDER/KIDNEY PROBLEMS N CORONARY ARTERY DISEASE (CAD) N ADDICTION CONCERNS N USE OF BLOOD THINNERS Y SKIN PROBLEMS Y EMPHYSEMA N MUSCLE,JOINT OR BONE PROBLEMS N DVT N STOMACH ULCERS N BLOOD CLOTS Y USE OF NSAIDS N CONCUSSION OR SPINAL TRAUMA N NEUROPATHY N AIDS/HIV N FRACTURES N ELBOW PAIN N HYPERTENSION N TOURETTE'S N ANXIETY DISORDER N Metal allergy N BLOOD TRANSFUSION N ANEMIA/BLOOD DISORDER N BIPOLAR DISORDER N BRONCHITIS N OSTEOARTHRITIS N TUBERCULOSIS N FOOT PROBLEM N HEART VALVE DISORDERS N ALLERGIES/HAYFEVER N SOFT TISSUE INJURY N INFECTIOUS DISEASE N HEART ARRHYTHMIA Y INSOMNIA N RHEUMATOID ARTHRITIS N HIGH CHOLESTEROL / HYPERLIPIDEMIA N EDEMA N CHRONIC PAIN SYNDROME N CAROTID BLOCKAGE N BACK / NECK PROBLEMS N HAVE YOU BEEN HOSPITALIZED OR SEEN IN [facility] IN THE PAST YEAR ? N BURSITIS N HERNIATED DISC N DIALYSIS N FIBROMYALGIA N OSTEOPOROSIS N ARTHRITIS Y NO SIGNIFICANT PAST MEDICAL HISTORY N PERIPHERAL NEUROPATHY N DIABETES, TYPE Y HEARTBURN / REFLUX N HEPATITIS / LIVER DISEASE N GOUT N SLEEP DISORDER N ALZHEIMER'S DISEASE N HERPES N SEIZURES/EPILEPSY N HEADACHES/MIGRAINES N VASCULAR DISEASE N HIP PAIN N Blood Disorder N DIZZINESS N HEAD TRAUMA OR INJURY N HEART DISEASE/HEART PROBLEMS N MULTIPLE SCLEROSIS N CARDIAC ARRHYTHMIA N CANCER: SPECIFY N ANESTHESIA COMPLICATIONS N ATRIAL FIBRILLATION N AUTOIMMUNE DISEASE N Gynecological HistoryNo gynecological history recorded. Obstetrics History GPAL:G 0 P 0 0 0 0 Past Encounters Encounter ID Performer Location Encounter Start Date Encounter Closed Date Diagnosis/Indication Diagnosis SNOMED-CT Code Diagnosis ICD10 Code Diagnosis Note [id number] Fady Wilde MD [facility] [address] [address] 01/02/2022 00:00:00 01/20/2022 16:25:29 [id number] Fady Wilde MD [facility] [address] 01/16/2022 00:00:00 01/20/2022 16:36:07 [id number] MARKIE Angulo [facility] [address] [address] 04/17/2022 00:00:00 04/17/2022 15:51:11 [id number] Fady Wilde MD [facility] [address] [place] [address] 11/07/2022 12:00:50 11/07/2022 12:54:24 Pain of right knee joint 8402238861 80479 M25.311 [id number] Juan Pablo Mcclelland MD [facility] [address] [place] [address] 12/22/2024 09:12:25 12/22/2024 10:35:37 Pain of right knee joint 2420373521 60604 M25.561 History of right total knee replacement 4196913162 989175 Z96.651 Pain of knee region 1003 455406 T84.84XA Z96.659 History of left total knee replacement 1865371434 524148 Z96.652 Health Concerns Section Related Observation LastModified by Organization Detai ls LastModified Time None Recorded Concern Status LastModified by Organization Details LastModified Time None Recorded Advance Directives Directive None Recorded Payers Encounter Date Sequence Insurance Name Policy Number Policy Skaggs Covered Member ID Skaggs Member ID Guarantor Name 11/07/2022 1 [facility] - DOS ON OR AFTER 21 (MEDICAID REPLACEMENT - HMO) Whit Segovia [id number] Whit Segovia 12/22/2024 1 [facility] - DOS ON OR AFTER 21 (MEDICAID REPLACEMENT - HMO) Whit Segovia [id number] Whit Segovia Notes Date Note Type Note Provider Name and Address Organization Details Recorded Time 12/22/2024 text/html The patient is a 54-year-old female who presents with a 2 week history of swelling and some pain in her right knee. She states at the end of the day it really bothers her the most. Right now it does not look too swollen she states some days it is very swollen. She has a history of total knee [place] [address] Gilliam here. She states several years ago she did have similar swelling she had an aspiration of the knee and workup for infection which was negative. She is having similar problems now she has not had any issues for a few years. She states in July of this year she did have an abscess on her groin on the left due to hidradenitis suppurativa, she was treated with IV vancomycin in the hospital which was also complicated by the flu. She is diabetic and has to monitor her blood sugars. She states during the day her blood sugars we will spike particularly if she is stressed or ill. Two weeks ago she started to notice some swelling in the right knee and some discomfort. Occasionally it will feel warm to the touch the pain swelling and discomfort come and go. Recently she developed another bout of infection she has had a draining wound in her left groin. She is scheduled to undergo surgical excision of this area as she has developed some sinus tracts with other openings that were draining. Currently she is on Keflex 500 mg q.i.d. the drainage has stopped she does have a large dark scab over the area that had been previously draining there is a little bit of erythema but no obvious pockets of fluid here. Concern would be for infection seeding her right knee. She comes in today for initial evaluation treatment. the patient did have x-rays done at [facility] recently on December 19. She had no trauma or injury to the right knee. She was having quite a bit of pain x-rays were performed. X-rays reviewed by me in detail today with the patient I see no evidence of fracture dislocation lesions or masses. Total knee arthroplasty appears to be in good alignment no obvious loosening or failure of the implant is noted. I agree with the radiologic findings of no acute abnormalities. A new past medical history sheet was reviewed and signed on the intake sheet of today's date drug allergies current medications family social history previous surgical history 10 point review of systems was reviewed and discussed in detail today with the patient. She denies any recent fevers or chills or night sweats otherwise feels well. MARKIE Morataya [address] [facility] [address] [facility] [address], [place], [address], [place] [facility] [place] 12/22/2024 10:40:51 OBGyn Episode No OBEpisode recorded.
--- OUTSIDE RECORDS SUMMARY | 2024-12-28 17:57 | XMS_ITS | Encounter Summary ---
Author Organization [facility] Address [address] [place] [address] Care Team Providers Care Track Moving Machine Operator Name Role Phone Luis M Kirkpatrick MD Unavailable [phone] Lucho Casas MD Unavailable [phone] Luis M Kirkpatrick MD Primary Care Provider [phone] Encounter Details Date Type Department Care Team (Late st Contact Info) Description 05/27/2023 Telephone [facility] - Centralized Scheduling [address] [place] [id number] Arelis Argueta MD [facility] [place] [id number] Social History Tobacco Use Types Packs/Day Years Used Date Smoking Tobacco: Some Days Cigarettes 0.5 30 Smokeless Tobacco: Former Alcohol Use Standard Drinks/Week Comments Yes 0 (1 standard drink = 0.6 oz pur e alcohol) socially Comments No Sex and Gender Information Value Date Recorded Sex Assigned at Not on file 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 To let her know that Dr. Berry sent her prescriptions into the pharmacy. Patient did not answer. Left voice mail to call office back. LANE TESTER * Telephone Encounter - Oscar Sainilucía - 05/27/2023 9:15 AM CST Patient called in requesting a Med refill. Drug type: dulaglutide (Trulicity) 1.5 MG/0.5ML injection, insulin pen needle (B-D UF III MINI PEN NEEDLES) 31G X 5 MM needle and one touch ultra test strips. Pharmacy:[facility] [address] [place] [address] Patient call back number: [phone]. States thatshe is running out of medication. Is frustrated because she was told that Dr. Meza would be fillingher meds because Dr. Quintana is certified through [place]. Reached out to SCOTT Hoyos regarding this concern and was advised that Dr. Meza isn't here today. Ms. Segovia would like a call back to discuss further steps. Callback number listed above. . LANE TESTER documented in this encounter Plan of Treatment Not on file documented as of this encounter Visit Diagnoses Not on filedocumented in this encounter Care Teams Track Moving Machine Operator Relationship Specialty Start Date End Date Luis M Kirkpatrick MD [address] [place] [address] PCP - General 11/26/21 Luis M Kirkpatrick MD [address] [place] [address] 04/16/21 Lucho Casas MD [address] [place] [address] 10/07/18 documented as of this encounter
== END 2024-12-28 15:58 | disposition home or self-care (01) ==
PROVIDERS: PCP Nurse Practitioner Family; Visit Provider Physician Assistant Surgical
DX: M25.461 Effusion, right knee (principal); Z96.651 Presence of right artificial knee joint
CPT/HCPCS: 73700

== ENCOUNTER 2024-12-29 17:01 | Outpatient (CLI) | payer OTHER, SELFPAY ==
--- NOTE | ~2024-12-29 | US_ITS ---
RIGHT LOWER EXTREMITY VENOUS ULTRASOUND Ordering provider: Jayden Parker, PA History: . localized swelling of rt lower extremity . Comparison: None. FINDINGS: --COMMON FEMORAL: Patent and free of thrombus. Normal compressibility, phasic flow and augmentation. --PROXIMAL SUPERFICIAL FEMORAL: Patent and free of thrombus. Normal compressibility, phasic flow and augmentation. --DISTAL SUPERFICIAL FEMORAL: Patent and free of thrombus. Normal compressibility, phasic flow and au gmentation. --POPLITEAL: Patent and free of thrombus. Normal compressibility, phasic flow and augmentation. --POSTERIOR TIBIAL: Patent and free of thrombus. Normal compressibility, phasic flow and augmentation . Possible fluid collection in the lateral aspect of the right knee pain. IMPRESSION: Negative right lower extremity venous US. No deep vein thrombosis. Reviewed, dictated and finalized at location A.
--- OUTSIDE RECORDS SUMMARY | 2024-12-29 17:05 | XMS_ITS | Encounter Summary ---
Author Organization [facility] Health Address [address] [facility] [place] [address] Care Team Providers Care Heavy Equipment Field Mechanic Name Role Phone Luis M Kirkpatrick MD Primary Care Provider [phone] Lucho Casas MD Primary Care Provider [phone] Luis M Kirkpatrick MD Unavailable [phone] Lucho Casas MD Unavailable [phone] Luis M Kirkpatrick MD Primary Care Provider [phone] Reason for Visit * Reason Onset Date Comments Medication Prior Auth Request 01/24/2019 Encounter Details Date Type Department Care Team (Late st Contact Info) Description 01/24/2019 Telephone [facility], Diabetes and Metabolism [address] [place] [address] Timo Us MD [address] [place] [address] Medication Prior Auth Request Social History Tobacco Use Types Packs/Day Years Used Date Smoking Tobacco: Never Smokeless Tobacco: Never Alcohol Use Standard Drinks/Week Comments Yes 0 (1 standard drink = 0.6 oz pur e alcohol) Comments Unknown Sex and Gender Information Value Date Recorded Sex Assigned at Not on file Legal Sex Female 1:22 PM ELECTRONICS TESTER Gender Identity Not on file Sexual [...] a PA for this Rx as well. [facility] documented in this encounter Plan of Treatment Not on file documented as of this encounter Visit Diagnoses Not on filedocumented in this encounter Care Teams Heavy Equipment Field Mechanic Relationship Specialty Start Date End Date Luis M Kirkpatrick MD [address] [place] [address] PCP - General 10/07/18 04/15/21 Lucho Casas MD [address] [place] [address] PCP - General 04/16/21 11/25/21 Luis M Kirkpatrick MD [address] [place] [address] PCP - General 11/26/21 Luis M Kirkpatrick MD [address] [place] [address] 04/16/21 Lucho Casas MD [address] [place] [address] 10/07/18 documented as of this encounter
--- OUTSIDE RECORDS SUMMARY | 2024-12-29 17:05 | XMS_ITS | Continuity of Care Document ---
Author Organization [facility] Address [address] [place] [address] [place] [address] Phone Care Team Providers Care Weapons Designer Name Role Phone Gage Kaiser Unavailable Unavailable Procedures Procedure Date Eye Exam & Treatment Refraction Eye Exam, New Patient Advance Directives Directive Yes / No Effective Date File Name No Information Encounters Encounter Description Practice Location Reason(s) For Visit Diagnoses Date Provider Providers Copied on Encounter [facility], [address] [place] [address] [address], [place], [place], [id number], tel:[phone] [facility] No Information 8-201 0 Krishnasamy Gage. [address] [address], [place], [place], Formerly named [facility], [place]. tel:[phone] [facility], [address] [place] [address] [address], [place], [place], [id number], tel:[phone] [facility] No Information 0-200 9 Krishnasamy Gage. [address] [facility] [address], [place], [address], [place]. tel:[phone] Family History Family Member Type Diagnosis Age At Onset No Information Payers Payer name Insurance type Covered green party ID Authortaylora bill(s) Medicaid [facility] [id number] Social History Type Description Quantity Date Captured [...]
--- OUTSIDE RECORDS SUMMARY | 2024-12-29 17:06 | XMS_ITS | Encounter Summary ---
Author Organization [facility] Health Address [address] [facility] [place] [address] Care Team Providers Care Contract Clerk Automobile Name Role Phone Luis M Kirkpatrick MD Unavailable [phone] Lucho Casas MD Unavailable [phone] Luis M Kirkpatrick MD Primary Care Provider [phone] Encounter Details Date Type Department Care Team (Late st Contact Info) Description 04/14/2023 Telephone [facility] - Centralized Scheduling [address] [place] [id number] Arelis Argueta MD [address] [place] [address] Social History Tobacco Use Types Packs/Day Years Used Date Smoking Tobacco: Some Days Cigarettes 0.5 30 Smokeless Tobacco: Former Alcohol Use Standard Drinks/Week Comments Yes 0 (1 standard drink = 0.6 oz pur e alcohol) socially Comments No Sex and Gender Information Value Date Recorded Sex Assigned at Not on file Legal Sex Female 1:22 PM DIRECTOR FIELD SERVICES Gender Identity Not on file Sexual Orientation Not on file documented as of this encounter Plan of Treatment Not on file documented as of this encounter Visit Diagnoses Not on filedocumented in this encounter Care Teams Contract Clerk Automobile Relationship Specialty Start Date End Date Luis M Kirkpatrick MD [address] [place], [place] [address] PCP - General 11/26/21 Luis M Kirkpatrick MD [address] [place], [place] [address] 04/16/21 Lucho Casas MD [address] [place] [address] 10/07/18 documented as of this encounter
--- OUTSIDE RECORDS SUMMARY | 2024-12-29 17:06 | XMS_ITS | Referral Summary ---
Author Organization [facility]ician Office Building [address] [place] [address] Care Team Providers Care Splicer Apprentice Name Role Phone Juan Pablo Forbes DO Unavailable [phone] Connor Barton MD Unavailable [phone] No, Physician Primary Care Provider [phone] Allergies Active Allergy Reactions Criticality Noted Date Comments Bacitracin Vomiting Low 03/16/2018 Sulfamethoxazole-Trimethoprim Diarrhea,Vomiting Low 05/13/2022 Celecoxib Nausea & Vomiting Low 03/16/2018 Clindamycin Hives Medium 03/16/2018 Propoxyphene-Acetaminophen Nausea & Vomiting Low Medications blood glucose diagnostic stripIndication s:Type 2 diabetes mellitus with hyperglycemia, with long-term current use of insulin ([facility]) accu-check guide test strips test blood sugars five times every day dx:E11.65 insulin dependent 150 each 3 8 Active FLUoxetine (PROzac) 20 mg capsule Take 1 capsule (20 mg total) by mouth 2 (two) times a day 0 8 Active metFORMIN (GLUCOPHAGE) 1,000 mg tabletIndicatio ns:Type 2 diabetes mellitus with hyperglycemia, with long-term current use of insulin ([facility]) TAKE 1 TABLET(1000 MG) BY [...] 03/17/2018 Assessment & Plan (08/20/2018 4:20 PM SALES ENABLEMENT LEAD): Diabetes is improving with treatment. Reviewed insulin [...] . Assessment & Plan (06/21/2018 7:03 AM SALES ENABLEMENT LEAD): Diabetes is improving with treatment. Reviewed insulin [...] . Assessment & Plan (05/23/2018 8:52 PM SALES ENABLEMENT LEAD): Diabetes is improving with treatment. A1c - [...] type 2, - patho physiology, short and shelter complications of uncontrolled DM, diet and exercise [...] 03/17/2018 Assessment & Plan (08/20/2018 4:21 PM SALES ENABLEMENT LEAD): Hypertension is chronic, well controlled Continue current treatment regimen. Dietary sodium restriction. Weight loss. Regular aerobic exercise. Continue current medications. Blood pressure will be reassessed at the next regular appointment. Assessment & Plan (06/21/2018 7:04 AM SALES ENABLEMENT LEAD): Hypertension is chronic, well controlled Continue current [...] 03/17/2018 Assessment & Plan (08/20/2018 4:21 PM SALES ENABLEMENT LEAD): Pt. On statin therapy Nutrition counseling provided Advised to increase aerobic exercise Assessment & Plan (06/21/2018 7:04 AM SALES ENABLEMENT LEAD): Pt. On statin therapy Nutrition counseling provided Advised to increase aerobic exercise Assessment & Plan (03/17/2018 7:44 AM CDT): Pt. On statin therapy Nutrition counseling provided Advised to increase aerobic exercise Insulin pump status 03/17/2018 Assessment & Plan (08/20/2018 4:21 PM SALES ENABLEMENT LEAD): Have long acting , basal insulin ( [...] 02/18 Assessment & Plan (08/20/2018 4:21 PM SALES ENABLEMENT LEAD): Obesity is improving with lifestyle modifications. Discussed [...] discussed. Assessment & Plan (06/21/2018 7:04 AM SALES ENABLEMENT LEAD): Obesity is improving with lifestyle habits Discussed [...] often do you attend chur ch or quaker services? 1 to 4 times per year 02/17/2023 Do you belong to any clubs o r organizations such as buddhism groups, unions, fraternal or athletic groups, or [...] place to sleep or slept in a fci (including now)? No 02/17/2023 Personal Safety Answer Date Recorded Have you ever been in or are you currently in a harmful physical or emotional relationship or is someone making you feel afraid or unsafe? Denies 08/15/2023 Comments No Sex and Gender Information Value Date Recorded Sex Assigned at Not on file Legal Sex Female 6:30 AM SALES ENABLEMENT LEAD Gender Identity Not on file Sexual Orientation Not on file Last Filed Vital Signs Vital Sign Reading Time Taken Comments Blood Pressure 153/90 08/16/2023 7:30 AM SALES ENABLEMENT LEAD Pulse 87 08/16/2023 7:30 AM SALES ENABLEMENT LEAD Temperature 36.8 C (98.2 F) 08/16/2023 7:30 AM SALES ENABLEMENT LEAD Respiratory Rate 18 08/16/2023 7:30 AM SALES ENABLEMENT LEAD Oxygen Saturation 99% 08/16/2023 7:30 AM SALES ENABLEMENT LEAD Inhaled Oxygen Concentration - - Weight 100.7 kg (222 lb 0.1 oz) 024 11:25 PM SALES ENABLEMENT LEAD Height 165.1 cm (5' 5) 08/14/2023 11:2 5 PM SALES ENABLEMENT LEAD Body Mass Index 36.94 08/14/2023 11:25 PM SALES ENABLEMENT LEAD Plan of Treatment Not on file Procedures Procedure Name Priority Date/Time Associated Diagnosis Comments EGFR Routine 08/15/2023 4:36 AM SALES ENABLEMENT LEAD HEMOGLOBIN A1C STAT 08/14/2023 6:14 PM SALES ENABLEMENT LEAD POCT LIPID PANEL Routine 03/16/2018 1:50 PM CDT Type 2 diabetes mellitus with hyperglycemia, with long-term current use of insulin (HCC) from Last 3 Months or Most Recently Relevant to Health Maintenance Results * eGFR (08/15/2023 4:36 AM SALES ENABLEMENT LEAD) eGFR 118 mL/min/1. 73 m2 [facility] Comment: Interpretive Data Reference Interval Normal [...] last reviewed 2021. Blood 08/15/2023 4:36 AM SALES ENABLEMENT LEAD 08/15/2023 4:36 AM SALES ENABLEMENT LEAD Drew Early MD LAB BLOOD ORDERABLES Final R esult [facility] [address] [facility] Department [place] [address] * (ABNORMAL) Hemoglobin A1c (08/14/2023 6:14 PM SALES ENABLEMENT LEAD) [facility] Hgb A1C 11.5(H) 4.0 - 5.6 % [facility] Comment:Testing performed by : [address] [address] Estimated Average Glucose 283 mg/dL [facility] Comment: The ADA recommends reporting an estimated Average Glucose (eAG) with all Hemoglobin A1c results using the equation derived from a study of 507 normal and diabetic adults. Minority populations were underrepresented and children were not included. (Diabetes Care 31:7584-1508, 2008). The eAG is not equivalent to a fasting glucose. Testing performed by: [address] [address] Blood 08/14/2023 6:14 PM SALES ENABLEMENT LEAD 08/14/2023 6:15 PM SALES ENABLEMENT LEAD us Luis Fernando Barragan DO LAB BLOOD ORDERABLES Final Result [facility] [address] [facility] Department [place] [address] * POCT lipid panel (03/16/2018 1:50 PM [...] Indicated MDR gram neg/ESBL 05/16/2023 05/16/2023 Insurance [facility] Advance Directives For more information, please contact: [phone] * Full Code (Latest Code Status on File) Date Activated Date Inactivated Comments 08/14/2023 11:22 PM 08/16/2023 3:36 PM * Full Code Date Activated Date Inactivated Comments 02/16/2023 10:52 PM 02/22/2023 5:12 PM Care Teams Splicer Apprentice Relationship Specialty Start Date End Date No, Physician PCP - General 08/14/23 Juan Pablo Forbes DO Internal Medicine 03/17/18 [place] [address] [facility] [address] [place] [address] Consulting Physician Endocrinology 09/01/18
--- OUTSIDE RECORDS SUMMARY | 2024-12-29 17:06 | XMS_ITS | Encounter Summary ---
Author Organization [facility] Health Address [address] [facility] [place] [address] Care Team Providers Care Real Estate Broker Name Role Phone Luis M Kirkpatrick MD Unavailable [phone] Lucho Casas MD Unavailable [phone] Luis M Kirkpatrick MD Primary Care Provider [phone] Encounter Details Date Type Department Care Team (Late st Contact Info) Description 05/29/2023 Telephone [facility] - Endocrinology [address] [place] [address], [place] [address] Sobia Meza MD [address] [place] [phone] Social History Tobacco Use Types Packs/Day Years Used Date Smoking Tobacco: Some Days Cigarettes 0.5 30 Smokeless Tobacco: Former Alcohol Use Standard Drinks/Week Comments Yes 0 (1 standard drink = 0.6 oz pur e alcohol) socially Comments No Sex and Gender Information Value Date Recorded Sex Assigned at Not on file Legal Sex Female 1:22 PM CHAIRMAN CEO Gender Identity Not on file Sexual Orientation Not on file documented as of this encounter Miscellaneous Notes * Telephone Encounter - Riggs Elana - 05/29/2023 8:32 AM CST Patient called in requesting a Med refill. Drug type:LANTUS PEN, ONE TOUCH ULTRA STRIPS, AND PEN NEEDLES BUT MAY NEED A SUBSTITUTE BRAND OF PEN NEEDLES DUE TO INSURANCE NOT COVERING. Pharmacy:[id number] - [address] [facility] [place] [address] [facility] [address] Patient call back number: [phone] . PATIENT ALSO STATES HER BLOOD SUGAR IS STILL IN THE 300'S AND WOULD LIKE A CALL FROM THE OFFICE. RMAN CEO documented in this encounter Plan of Treatment Not on file documented as of this encounter Visit Diagnoses Not on filedocumented in this encounter Care Teams Real Estate Broker Relationship Specialty Start Date End Date Luis M Kirkpatrick MD [address] [place] [address] PCP - General 11/26/21 Luis M Kirkpatrick MD [address] [place] [address] 04/16/21 Lucho Casas MD [address] [place] [address] 10/07/18 documented as of this encounter
--- OUTSIDE RECORDS SUMMARY | 2024-12-29 17:06 | XMS_ITS | Encounter Summary ---
Author Organization [facility] Health Address [address] [facility] [place] [address] Care Team Providers Care Woolen Tester Name Role Phone Luis M Kirkpatrick MD Unavailable [phone] Lucho Casas MD Unavailable [phone] Luis M Kirkpatrick MD Primary Care Provider [phone] Encounter Details Date Type Department Care Team (Late st Contact Info) Description 05/13/2023 Telephone [facility] - Endocrinology [address] [place] [address], [facility] [place] [address] Arelis Argueta MD [address] [place] [address] [place] [address] Social History Tobacco Use Types Packs/Day Years Used Date Smoking Tobacco: Some Days Cigarettes 0.5 30 Smokeless Tobacco: Former Alcohol Use Standard Drinks/Week Comments Yes 0 (1 standard drink = 0.6 oz pur e alcohol) socially Comments No Sex and Gender Information Value Date Recorded Sex Assigned at Not on file Legal Sex Female 1:22 PM TANK WAGON DRIVER Gender Identity Not on file Sexual Orientation [...] left vm * Telephone Encounter - Lia rGier LPN - 05/19/2023 1:30 PM CDT Placed call to patient, no answer. Left VM * Telephone Encounter - Arelis Argueta MD - 05/18/2023 5:13 PM CDT I tried calling her but she didn't pickle sorter. Can you please let her know. If [...] Thanks so much. Patient Call Back number: [phone] documented in this encounter Plan of Treatment Not on file documented as of this encounter Visit Diagnoses Not on filedocumented in this encounter Care Teams Woolen Tester Relationship Specialty Start Date End Date Luis M Kirkpatrick MD [address] [place] [address] PCP - General 11/26/21 Luis M Kirkpatrick MD [address] [place] [address] 04/16/21 Lucho Casas MD [address] [place] [address] 10/07/18 documented as of this encounter
--- OUTSIDE RECORDS SUMMARY | 2024-12-29 17:06 | XMS_ITS | Encounter Summary ---
Author Organization [facility] Address [address] [facility] [place] [address] Care Team Providers Care Cook Fish And Chips Name Role Phone Luis M Kirkpatrick MD Unavailable [phone] Lucho Casas MD Unavailable [phone] Luis M Kirkpatrick MD Primary Care Provider [phone] Reason for Visit * Reason Onset Date Comments MEDICATION REFILL 08/04/2022 Encounter Details Date Type Department Care Team (Late st Contact Info) Description 08/04/2022 Refill [facility] and Met[facility] [address] [place] [phone] Db Sue MD [address] [place] [address] MEDICATION REFILL Social History Tobacco Use Types Packs/Day Years Used Date Smoking Tobacco: Some Days Cigarettes 0.5 30 Smokeless Tobacco: Former Alcohol Use Standard Drinks/Week Comments Yes 0 (1 standard drink = 0.6 oz pur e alcohol) socially Comments No Sex and Gender Information Value Date Recorded Sex Assigned at Not on file Legal Sex Female 1:22 PM HYDRATOR Gender Identity Not on file Sexual Orientation Not on file documented as of this encounter Miscellaneous Notes * Telephone Encounter - Silva Belle LPN - 08/04/2022 9:59 AM CST ERROR ATOR documented in this encounter Plan of Treatment Not on file documented as of this encounter Visit Diagnoses Diagnosis Diabetes mellitus type 2, insulin dependent (HCC)- Primary Type II or unspecified type diabetes mellitus without mention of complication, not stated as uncontrolled documented in this encounter Care Teams Cook Fish And Chips Relationship Specialty Start Date End Date Luis M Kirkpatrick MD [address] [place] [address] PCP - General 11/26/21 Luis M Kirkpatrick MD [address] [place] [address] 04/16/21 Lucho Casas MD [address] [place] [address] 10/07/18 documented as of this encounter
--- OUTSIDE RECORDS SUMMARY | 2024-12-29 17:06 | XMS_ITS | Encounter Summary ---
Author Organization [facility] Health Address [address] [facility] [place] [address] Care Team Providers Care Graphic Design Manager Name Role Phone Luis M Kirkpatrick MD Unavailable [phone] Lucho Casas MD Unavailable [phone] Luis M Kirkpatrick MD Primary Care Provider [phone] Encounter Details Date Type Department Care Team (Late st Contact Info) Description 05/27/2023 Telephone [facility] - Endocrinology [address] [place] [address], [facility] [place] [address] Arelis Argueta MD [address] [place] [address] [place] [address] Social History Tobacco Use Types Packs/Day Years Used Date Smoking Tobacco: Some Days Cigarettes 0.5 30 Smokeless Tobacco: Former Alcohol Use Standard Drinks/Week Comments Yes 0 (1 standard drink = 0.6 oz pur e alcohol) socially Comments No Sex and Gender Information Value Date Recorded Sex Assigned at Not on file Legal Sex Female 1:22 PM PLAYER MANAGER Gender Identity Not on file Sexual Orientation Not on file documented as of this encounter Miscellaneous Notes * Telephone Encounter - Arelis Argueta MD - 05/29/2023 12:08 PM CST Done ER MANAGER * Telephone Encounter - Lia Grier LPN [...] doesn't want to go to the ER ER MANAGER * Telephone Encounter - Tarsha Cedillo - [...] two doses remaining Patient Call Back number: [phone] ER MANAGER documented in this encounter Plan of Treatment Not on file documented as of this encounter Visit Diagnoses Not on filedocumented in this encounter Care Teams Graphic Design Manager Relationship Specialty Start Date End Date Luis M Kirkpatrick MD [address] [place] [address] PCP - General 11/26/21 Luis M Kirkpatrick MD [address] [place] [address] 04/16/21 Lucho Casas MD [address] [place] [address] 10/07/18 documented as of this encounter
--- OUTSIDE RECORDS SUMMARY | 2024-12-29 17:06 | XMS_ITS | Clinical Summary ---
Author Organization [facility] Address [address] [place] [address] Care Team Providers Care Rotary Planer Set Up Operator Name Role Phone uLis M Kirkpatrick MD Unavailable [phone] Lucho Casas MD Unavailable [phone] Luis M Kirkpatrick MD Primary Care Provider [phone] Source Comments [facility],non-owned Affiliates and Associated Physician Practices is amultiple site organization consisting of ambulatory clinics and hospital sitesin [place], [place], [place] and [place]. This disclosure is being madepursuant to the Care Everywhere program and may not contain all information available regarding this patient. Last updated 18.[facility] Allergies Active Allergy Reactions Criticality Noted Date [...] on file Legal Sex Female 1:22 PM MIDDLE SCHOOL GUIDANCE COUNSELOR Gender Identity Not on file Sexual Orientation Not on file Last Filed Vital Signs Vital Sign Reading Time Taken Comments Blood Pressure 146/85 09/15/2023 11:07 AM MIDDLE SCHOOL GUIDANCE COUNSELOR Pulse 93 09/15/2023 11:07 AM MIDDLE SCHOOL GUIDANCE COUNSELOR Temperature 36.5 C (97.7 F) 06/09/2023 10:42 AM MIDDLE SCHOOL GUIDANCE COUNSELOR Respiratory Rate 18 06/09/2023 10:42 AM MIDDLE SCHOOL GUIDANCE COUNSELOR Oxygen Saturation 96% 09/15/2023 11:07 AM MIDDLE SCHOOL GUIDANCE COUNSELOR Inhaled Oxygen Concentration - - Weight 105.2 kg (232 lb) 09/15/2023 11:07 AM MIDDLE SCHOOL GUIDANCE COUNSELOR Height 165.1 cm (5' 5) 09/15/2023 11:07 AM MIDDLE SCHOOL GUIDANCE COUNSELOR Body Mass Index 38.61 09/15/2023 11:07 AM MIDDLE SCHOOL GUIDANCE COUNSELOR Plan of Treatment Health Maintenance Due Date [...] CARE (AMB) [facility] Routine 06/09/2023 11:02 AM MIDDLE SCHOOL GUIDANCE COUNSELOR Diabetes mellitus type 2, insulin dependent MICROALB/CREAT RATIO URINE RANDOM PANEL Routine 01/28/2022 1:09 PM CDT Diabetes mellitus type 2, insulin dependent COMPREHENSIVE METABOLIC PANEL Routine 01/28/2022 1:09 PM CDT Diabetes mellitus type 2, insulin dependent from Last 3 Months or Most Recently Relevant to Health Maintenance Results * HEMOGLOBIN A1C - POINT OF CARE (AMB) [facility] (06/09/2023 11:02 AM MIDDLE SCHOOL GUIDANCE COUNSELOR) Hemoglobin A1c POCT 11.9 % [address] BLOOD SPECIMEN / Unknown 06/09/2023 11:02 AM MIDDLE SCHOOL GUIDANCE COUNSELOR us Arelis Argueta MD LAB - POINT OF CARE ORDERABLES Final Result [address], [place] [address], [facility] [phone] * MICROALB/CREAT RATIO URINE RANDOM PANEL (01/28/2022 1:09 PM CDT) Albumin Random Urine 6.3 Not Established ug/mL 01/28/2022 1:54 PM CDT [facility] Creatinine Urine 54 Not Established mg/dL 01/28/2022 1:54 PM CDT [facility] Urine Albumin/Creati nine Ratio 12 <30 mg/g 01/28/2022 1:54 PM CDT [facility] Urine URINE SPECIMEN OBTAINED BY CLEAN CATCH PROCEDURE / Unknown Collection / Unknown 01/28/2022 1:09 PM CDT 01/28/2022 1:29 PM CDT us Emma Vieira MD LAB - URINE CHEMISTRY ORDERABLES Final Result [facility] [address] [place] [address], [facility] [phone] * (ABNORMAL) COMPREHENSIVE METABOLIC PANEL (01/28/2022 1:09 PM [facility]) BUN 9 7 - 26 mg/dL 01/28/2022 2:02 PM [facility] Creatinine 0.50(L) 0.56 - 0.96 mg/dL 01/28/2022 2:02 PM [facility] Sodium 142 136 - 145 mmol/L 01/28/2022 2:02 PM [facility] Potassium 3.7 3.5 - 4.5 mmol/L 01/28/2022 2:02 PM [facility] Chloride 102 98 - 107 mmol/L 01/28/2022 2:02 PM [facility] CO2 27 22 - 29 mmol/L 01/28/2022 2:02 PM [facility] Glucose 97 70 - 115 mg/dL 01/28/2022 2:02 PM [facility] Calcium 9.6 8.4 - 10.2 mg/dL 01/28/2022 2:02 PM [facility] Protein Total 7.5 6.0 - 8.3 g/dL 01/28/2022 2:02 PM [facility] Albumin 4.1 3.4 - 5.0 g/dL 01/28/2022 2:02 PM [facility] Bilirubin Total 0.6 0.2 - 1.2 mg/dL 01/28/2022 2:02 PM [facility] Alkaline Phosphatase 65 40 - 150 U/L 01/28/2022 2:02 PM [facility] ALT 17 5 - 55 U/L 01/28/2022 2:02 PM [facility] AST 16 5 - 34 U/L 01/28/2022 2:02 PM [facility] Anion Gap 17 8 - 18 01/28/2022 2:02 PM [facility] BUN/Creatinine Ratio 18 7 - 23 01/28/2022 2:02 PM [facility] Osmolality Calculated 293 270 - 300 mOsm/kg 01/28/2022 2:02 PM [facility] Albumin/Globulin Ratio 1.2 1.1 - 2.3 01/28/2022 2:02 PM T [facility] eGFR by CKD-EPI >90 >=90 mL/min/1.7 3 m2 01/28/2022 2:02 PM T [facility] Blood BLOOD SPECIMEN / Unknown Lab Venipuncture / Unknown 01/28/2022 1:09 PM CDT 01/28/2022 1:33 PM CDT Emma Vieira MD LAB - CHEMISTRY ORDERABLES Final Result [facility] [address] [place] [address], [facility] [phone] from Last 3 Months or Most Recently Relevant to Health Maintenance Insurance [id number] [place] [id number] [place] [address] [facility] Care Teams Rotary Planer Set Up Operator Relationship Specialty Start Date End Date Luis M Kirkpatrick MD [address] [facility] [address] [place] [address] PCP - General 11/26/21 Luis M Kirkpatrick MD [address] [place] [address] 04/16/21 Lucho Casas MD [address] [place] [address] 10/07/18
--- OUTSIDE RECORDS SUMMARY | 2024-12-29 17:06 | XMS_ITS | Clinical Summary ---
Author Organization [facility] Address [address] [place] [address] Care Team Providers Care Dairy Farm Operator Name Role Phone Unavailable Primary Care Provider Unavailabl e Social History Tobacco Use Types Packs/Day Years Used Date Smoking Tobacco: Never Assessed Comments Unknown Sex and Gender Information Value Date Recorded Sex Assigned at Not on file Legal Sex Female 9:24 AM LOG GETTER Gender Identity Not on file Sexual Orientation [...]
--- OUTSIDE RECORDS SUMMARY | 2024-12-29 17:06 | XMS_ITS | Encounter Summary ---
Author Organization [facility] Address [address] [place] [address] Care Team Providers Care Switch Tender Name Role Phone Luis M Kirkpatrick MD Unavailable [phone] Lucho Casas MD Unavailable [phone] Luis M Kirkpatrick MD Primary Care Provider [phone] Encounter Details Date Type Department Care Team (Late st Contact Info) Description 04/23/2023 Telephone [facility] - Centralized Scheduling [address] [place] [id number] Arelis Argueta MD [address] [id number] Social History Tobacco Use Types Packs/Day Years Used Date Smoking Tobacco: Some Days Cigarettes 0.5 30 Smokeless Tobacco: Former Alcohol Use Standard Drinks/Week Comments Yes 0 (1 standard drink = 0.6 oz pur e alcohol) socially Comments No Sex and Gender Information Value Date Recorded Sex Assigned at Not on file Legal Sex Female 1:22 PM INFORMAL WAITER/WAITRESS Gender Identity Not on file Sexual Orientation Not on file documented as of this encounter Plan of Treatment Not on file documented as of this encounter Visit Diagnoses Not on filedocumented in this encounter Care Teams Switch Tender Relationship Specialty Start Date End Date Luis M Kirkpatrick MD [address] [place], [place] [id number] PCP - General 11/26/21 Luis M Kirkpatrick MD [address] [place], [place] [address] 04/16/21 Lucho Casas MD [address] [place] [address] 10/07/18 documented as of this encounter
--- OUTSIDE RECORDS SUMMARY | 2024-12-29 17:06 | XMS_ITS | Clinical Summary ---
Author Organization [facility] [address] [place] [address] Care Team Providers Care Tire Bagger Name Role Phone Juan Pablo Forbes DO Unavailable [phone] Connor Barton MD Unavailable [phone] No, Physician Primary Care Provider [phone] Allergies Active Allergy Reactions Criticality Noted Date Comments Bacitracin Vomiting Low 03/16/2018 Sulfamethoxazole-Trimethoprim Diarrhea,Vomiting Low 05/13/2022 Celecoxib Nausea & Vomiting Low 03/16/2018 Clindamycin Hives Medium 03/16/2018 Propoxyphene-Acetaminophen Nausea & Vomiting Low Medications blood glucose diagnostic stripIndication s:Type 2 diabetes mellitus with hyperglycemia, with long-term current use of insulin ([facility]) accu-check guide test strips test blood sugars five times every day dx:E11.65 insulin dependent 150 each 3 8 Active FLUoxetine (PROzac) 20 mg capsule Take 1 capsule (20 mg total) by mouth 2 (two) times a day 0 8 Active metFORMIN (GLUCOPHAGE) 1,000 mg tabletIndicatio ns:Type 2 diabetes mellitus with hyperglycemia, with long-term current use of insulin ([facility]) TAKE 1 TABLET(1000 MG) BY [...] 03/17/2018 Assessment & Plan (08/20/2018 4:20 PM AIRLINE MANAGERIAL SUPERVISOR): Diabetes is improving with treatment. Reviewed [...] . Assessment & Plan (06/21/2018 7:03 AM AIRLINE MANAGERIAL SUPERVISOR): Diabetes is improving with treatment. Reviewed [...] . Assessment & Plan (05/23/2018 8:52 PM AIRLINE MANAGERIAL SUPERVISOR): Diabetes is improving with treatment. A1c [...] type 2, - patho physiology, short and detention complications of uncontrolled DM, diet and exercise [...] 03/17/2018 Assessment & Plan (08/20/2018 4:21 PM AIRLINE MANAGERIAL SUPERVISOR): Hypertension is chronic, well controlled Continue current treatment regimen. Dietary sodium restriction. Weight loss. Regular aerobic exercise. Continue current medications. Blood pressure will be reassessed at the next regular appointment. Assessment & Plan (06/21/2018 7:04 AM AIRLINE MANAGERIAL SUPERVISOR): Hypertension is chronic, well controlled Continue [...] 03/17/2018 Assessment & Plan (08/20/2018 4:21 PM AIRLINE MANAGERIAL SUPERVISOR): Pt. On statin therapy Nutrition counseling provided Advised to increase aerobic exercise Assessment & Plan (06/21/2018 7:04 AM AIRLINE MANAGERIAL SUPERVISOR): Pt. On statin therapy Nutrition counseling provided Advised to increase aerobic exercise Assessment & Plan (03/17/2018 7:44 AM CDT): Pt. On statin therapy Nutrition counseling provided Advised to increase aerobic exercise Insulin pump status 03/17/2018 Assessment & Plan (08/20/2018 4:21 PM AIRLINE MANAGERIAL SUPERVISOR): Have long acting , basal insulin [...] 02/18 Assessment & Plan (08/20/2018 4:21 PM AIRLINE MANAGERIAL SUPERVISOR): Obesity is improving with lifestyle modifications. [...] discussed. Assessment & Plan (06/21/2018 7:04 AM AIRLINE MANAGERIAL SUPERVISOR): Obesity is improving with lifestyle habits [...] often do you attend chur ch or restoration services? 1 to 4 times per year 02/17/2023 Do you belong to any clubs o r organizations such as jain groups, unions, fraternal or athletic groups, or [...] place to sleep or slept in a fpc (including now)? No 02/17/2023 Personal Safety Answer Date Recorded Have you ever been in or are you currently in a harmful physical or emotional relationship or is someone making you feel afraid or unsafe? Denies 08/15/2023 Comments No Sex and Gender Information Value Date Recorded Sex Assigned at Not on file Legal Sex Female 6:30 AM AIRLINE MANAGERIAL SUPERVISOR Gender Identity Not on file Sexual Orientation Not on file Obstetrics History Last Filed Vital Signs Vital Sign Reading Time Taken Comments Blood Pressure 153/90 08/16/2023 7:30 AM AIRLINE MANAGERIAL SUPERVISOR Pulse 87 08/16/2023 7:30 AM AIRLINE MANAGERIAL SUPERVISOR Temperature 36.8 C (98.2 F) 08/16/2023 7:30 AM AIRLINE MANAGERIAL SUPERVISOR Respiratory Rate 18 08/16/2023 7:30 AM AIRLINE MANAGERIAL SUPERVISOR Oxygen Saturation 99% 08/16/2023 7:30 AM AIRLINE MANAGERIAL SUPERVISOR Inhaled Oxygen Concentration - - Weight 100.7 kg (222 lb 0.1 oz) 024 11:25 PM AIRLINE MANAGERIAL SUPERVISOR Height 165.1 cm (5' 5) 08/14/2023 11:2 5 PM AIRLINE MANAGERIAL SUPERVISOR Body Mass Index 36.94 08/14/2023 11:25 PM AIRLINE MANAGERIAL SUPERVISOR Plan of Treatment Health Maintenance Due [...] Diagnosis Comments EGFR Routine 08/15/2023 4:36 AM AIRLINE MANAGERIAL SUPERVISOR HEMOGLOBIN A1C STAT 08/14/2023 6:14 PM AIRLINE MANAGERIAL SUPERVISOR POCT LIPID PANEL Routine 03/16/2018 1:50 PM CDT Type 2 diabetes mellitus with hyperglycemia, with long-term current use of insulin (HCC) from Last 3 Months or Most Recently Relevant to Health Maintenance Results * eGFR (08/15/2023 4:36 AM AIRLINE MANAGERIAL SUPERVISOR) eGFR 118 mL/min/1. 73 m2 [facility] [...] last reviewed 2021. Blood 08/15/2023 4:36 AM AIRLINE MANAGERIAL SUPERVISOR 08/15/2023 4:36 AM AIRLINE MANAGERIAL SUPERVISOR Drew Early MD LAB BLOOD ORDERABLES Final R esult Performing Organization Address City/[facility] Co de Phone Number J[facility] [address] [facility] [place] [address] * (ABNORMAL) Hemoglobin A1c (08/14/2023 6:14 PM AIRLINE MANAGERIAL SUPERVISOR) Hgb A1C 11.5(H) 4.0 - 5.6 % [facility] Comment:Testing performed by : [address] [address] Estimated Average Glucose 283 mg/dL [facility] Comment: The ADA recommends reporting an estimated Average Glucose (eAG) with all Hemoglobin A1c results using the equation derived from a study of 507 normal and diabetic adults. Minority populations were underrepresented and children were not included. (Diabetes Care 31:0741-2565, 2008). The eAG is not equivalent to a fasting glucose. Testing performed by: [address] [address] Blood 08/14/2023 6:14 PM AIRLINE MANAGERIAL SUPERVISOR 08/14/2023 6:15 PM AIRLINE MANAGERIAL SUPERVISOR Luis Fernando Barragan DO LAB BLOOD ORDERABLES Final Result Performing Organization Address [facility] Co de Phone Number [facility] [address] [facility] [place] [address] * POCT lipid panel (03/16/2018 1:50 PM [...] Advance Directives For more information, please contact: [phone] * Full Code (Latest Code Status on File) Date Activated Date Inactivated Comments 08/14/2023 11:22 PM 08/16/2023 3:36 PM * Full Code Date Activated Date Inactivated Comments 02/16/2023 10:52 PM 02/22/2023 5:12 PM Care Teams Tire Bagger Relationship Specialty Start Date End Date No, Physician PCP - General 08/14/23 Juan Pablo Forbes DO Internal Medicine 03/17/18 [place] [address] [facility] [address] [place] [address] Consulting Physician Endocrinology 09/01/18
--- OUTSIDE RECORDS SUMMARY | 2024-12-29 17:06 | XMS_ITS | Encounter Summary ---
Author Organization [facility] Address [address] [place] [address] Care Team Providers Care Equipment Processer Storage Name Role Phone Luis M Kirkpatrick MD Unavailable [phone] Lucho Casas MD Unavailable [phone] Luis M Kirkpatrick MD Primary Care Provider [phone] Encounter Details Date Type Department Care Team (Late st Contact Info) Description 05/27/2023 Telephone [facility] - Centralized Scheduling [address] [place] [phone] Arelis Argueta MD [facility] [phone] Social History Tobacco Use Types Packs/Day Years Used Date Smoking Tobacco: Some Days Cigarettes 0.5 30 Smokeless Tobacco: Former Alcohol Use Standard Drinks/Week Comments Yes 0 (1 standard drink = 0.6 oz pur e alcohol) socially Comments No Sex and Gender Information Value Date Recorded Sex Assigned at Not on file Legal Sex Female 1:22 PM ENVIRONMENTAL SAFETY SPECIALIST Gender Identity Not on file Sexual Orientation Not on file documented as of this encounter Miscellaneous Notes * Telephone Encounter - Romain Ridley MA - 05/27/2023 11:44 AM CST Called patient. To let her know that Dr. Berry sent her prescriptions into the pharmacy. Patient did not answer. Left voice mail to call office back. RONMENTAL SAFETY SPECIALIST * Telephone Encounter - Oscar Sainilucía - 05/27/2023 9:15 AM CST Patient called in requesting a Med refill. Drug type: dulaglutide (Trulicity) 1.5 MG/0.5ML injection, insulin pen needle (B-D UF III MINI PEN NEEDLES) 31G X 5 MM needle and one touch ultra test strips. Pharmacy:[facility] [address] [place] [address] Patient call back number: [phone]. States thatshe is running out of medication. Is frustrated because she was told that Dr. Meza would be fillingher meds because Dr. Quintana is certified through [place]. Reached out to SCOTT Hoyos regarding this concern and was advised that Dr. Meza isn't here today. Ms. Segovia would like a call back to discuss further steps. Callback number listed above. . RONMENTAL SAFETY SPECIALIST documented in this encounter Plan of Treatment Not on file documented as of this encounter Visit Diagnoses Not on filedocumented in this encounter Care Teams Equipment Processer Storage Relationship Specialty Start Date End Date Luis M Kirkpatrick MD [address] [place] [address] PCP - General 11/26/21 Luis M Kirkpatrick MD [address] [place] [address] 04/16/21 Lucho Casas MD [address] [place] [address] 10/07/18 documented as of this encounter
== END 2024-12-29 17:02 | disposition home or self-care (01) ==
PROVIDERS: PCP Nurse Practitioner Family; Visit Provider Physician Assistant Surgical
DX: R22.41 Localized swelling, mass and lump, right lower limb (principal)
CPT/HCPCS: 93971

== ENCOUNTER 2025-01-02 12:51 | Outpatient (CLI) | payer OTHER, SELFPAY ==
--- NOTE | ~2025-01-02 | US_ITS ---
EXAMINATION: US knee asp inj w image RT DATE: 01/02/2025 14:29 INDICATION: Failure of right total knee arthroplasty. TECHNIQUE: The procedure including the risks and benefits was discussed with the patient. Risks discu ssed included bleeding, allergic reaction and infection. The patient understood the risks and agreed to proceed. The skin overlying the patellar pouch of the right knee was prepped and draped in usual sterile fashion. Anesthetic was administered with 1% lidocaine subcutaneously. An 22 gauge spinal n eedle was advanced under continuous ultrasound observation into the small joint effusion. Fluid was a spirated and sent to lab for studies as ordered by the referring physician. The needle was removed a nd the entry site was cleaned and dressed. Post procedure ultrasound demonstrated no hemorrhage. FINDINGS: Ultrasound images demonstrate needle advanced into a small anechoic fluid collection at the suprapatellar pouch of the right knee. IMPRESSION: 1. Successful Ultrasound-guided aspiration of a small right knee joint effusion which yielded 6 mL of minimally turbid viscous yellow fluid. Reviewed, dictated and finalized at location B.
--- OUTSIDE RECORDS SUMMARY | 2025-01-02 13:46 | XMS_ITS | Clinical Summary ---
Author Organization [facility] Address [address] [place] [address] Care Team Providers Care Lithograph Printer Name Role Phone Luis M Kirkpatrick MD Unavailable [phone] Lucho Casas MD Unavailable [phone] Luis M Kirkpatrick MD Primary Care Provider [phone] Source Comments [facility],non-owned Affiliates and Associated Physician Practices is amultiple site organization consisting of ambulatory clinics and hospital sitesin [place], [place] and [place]. This disclosure is being madepursuant to the Care Everywhere program and may not contain all information available regarding this patient. Last updated 18.[facility] Allergies Active Allergy Reactions Criticality [...] on file Legal Sex Female 1:22 PM HELP DESK SPECIALIST Gender Identity Not on file Sexual Orientation Not on file Last Filed Vital Signs Vital Sign Reading Time Taken Comments Blood Pressure 146/85 09/15/2023 11:07 AM HELP DESK SPECIALIST Pulse 93 09/15/2023 11:07 AM HELP DESK SPECIALIST Temperature 36.5 C (97.7 F) 06/09/2023 10:42 AM HELP DESK SPECIALIST Respiratory Rate 18 06/09/2023 10:42 AM HELP DESK SPECIALIST Oxygen Saturation 96% 09/15/2023 11:07 AM HELP DESK SPECIALIST Inhaled Oxygen Concentration - - Weight 105.2 kg (232 lb) 09/15/2023 11:07 AM HELP DESK SPECIALIST Height 165.1 cm (5' 5) 09/15/2023 11:07 AM HELP DESK SPECIALIST Body Mass Index 38.61 09/15/2023 11:07 AM HELP DESK SPECIALIST Plan of Treatment Health Maintenance Due Date [...] 50+ (1 of 2 - PCV) 02/10/1988 PAP SMEAR 1990 ZOSTER VACCINE (1 of 2) 2019 DIABETES RETINOPATHY SCREENING 02/11/2021 02/11/2019, 02/11/2019 DIABETES-FOOT EXAM WITH MONOFILAMENT 07/30/2022 07/30/2021, 07/16/2020, 05/26/2019 DIABETES-HGB A1C 11/13/2023 08/14/2023, , 02/17/2023, Additional history exists DIABETES-SERUM CREATININE 02/23/20242022, 02/22/2023, 02/21/2023, Additional history exists COVID-19 VACCINE ( season) 2024 DEPRESSION SCREENING 07/20/2024 06/09/2023 DIABETES [...] CARE (AMB) [facility] Routine 06/09/2023 11:02 AM HELP DESK SPECIALIST Diabetes mellitus type 2, insulin dependent MICROALB/CREAT RATIO URINE RANDOM PANEL Routine 01/28/2022 1:09 PM CDT Diabetes mellitus type 2, insulin dependent COMPREHENSIVE METABOLIC PANEL Routine 01/28/2022 1:09 PM CDT Diabetes mellitus type 2, insulin dependent from Last 3 Months or Most Recently Relevant to Health Maintenance Results * HEMOGLOBIN A1C - POINT OF CARE (AMB) [facility] (06/09/2023 11:02 AM HELP DESK SPECIALIST) Hemoglobin A1c POCT 11.9 % [address] BLOOD SPECIMEN / Unknown 06/09/2023 11:02 AM HELP DESK SPECIALIST us Arelis Argueta MD LAB - POINT OF CARE ORDERABLES Final Result [address], [place] [address], [facility] [phone] * MICROALB/CREAT RATIO URINE RANDOM PANEL (01/28/2022 1:09 PM CDT) Albumin Random Urine 6.3 Not Established ug/mL 01/28/2022 1:54 PM CDT [facility] Creatinine Urine 54 Not Established mg/dL 01/28/2022 1:54 PM CDT [facility] Urine Albumin/Creati nine Ratio 12 <30 mg/g 01/28/2022 1:54 PM CDT [facility] Urine URINE SPECIMEN OBTAINED BY CLEAN CATCH PROCEDURE / Unknown Collection / Unknown 01/28/2022 1:09 PM CDT 01/28/2022 1:29 PM CDT us Emma Vieira MD LAB - URINE CHEMISTRY ORDERABLES Final Result [facility] [address] [place] [address], [facility] [phone] * (ABNORMAL) COMPREHENSIVE METABOLIC PANEL (01/28/2022 1:09 PM [facility]) BUN 9 7 - 26 mg/dL 01/28/2022 2:02 PM [facility] Creatinine 0.50(L) 0.56 - 0.96 mg/dL 01/28/2022 2:02 PM [facility] Sodium 142 136 - 145 mmol/L 01/28/2022 2:02 PM [facility] Potassium 3.7 3.5 - 4.5 mmol/L 01/28/2022 2:02 PM [facility] Chloride 102 98 - 107 mmol/L 01/28/2022 2:02 PM [facility] CO2 27 22 - 29 mmol/L 01/28/2022 2:02 PM [facility] Glucose 97 70 - 115 mg/dL 01/28/2022 2:02 PM [facility] Calcium 9.6 8.4 - 10.2 mg/dL 01/28/2022 2:02 PM [facility] Protein Total 7.5 6.0 - 8.3 g/dL 01/28/2022 2:02 PM [facility] Albumin 4.1 3.4 - 5.0 g/dL 01/28/2022 2:02 PM [facility] Bilirubin Total 0.6 0.2 - 1.2 mg/dL 01/28/2022 2:02 PM [facility] Alkaline Phosphatase 65 40 - 150 U/L 01/28/2022 2:02 PM [facility] ALT 17 5 - 55 U/L 01/28/2022 2:02 PM [facility] AST 16 5 - 34 U/L 01/28/2022 2:02 PM [facility] Anion Gap 17 8 - 18 01/28/2022 2:02 PM [facility] BUN/Creatinine Ratio 18 7 - 23 01/28/2022 2:02 PM [facility] Osmolality Calculated 293 270 - 300 mOsm/kg 01/28/2022 2:02 PM T [facility] Albumin/Globulin Ratio 1.2 1.1 - 2.3 01/28/2022 2:02 PM T [facility] eGFR by CKD-EPI >90 >=90 mL/min/1.7 3 m2 01/28/2022 2:02 PM T [facility] Blood BLOOD SPECIMEN / Unknown Lab Venipuncture / Unknown 01/28/2022 1:09 PM CDT 01/28/2022 1:33 PM CDT Emma Vieira MD LAB - CHEMISTRY ORDERABLES Final Result [facility] [address] [place] [address], [facility] [phone] from Last 3 Months or Most Recently Relevant to Health Maintenance Insurance [id number] [place] [address] [id number] [place] [address] [facility] Care Teams Lithograph Printer Relationship Specialty Start Date End Date Luis M Kirkpatrick MD [address] [facility] [address] [place] [address] PCP - General 11/26/21 Luis M Kirkpatrick MD [address] [place] [address] 04/16/21 Lucho Casas MD [address] [place] [address] 10/07/18
--- OUTSIDE RECORDS SUMMARY | 2025-01-02 13:46 | XMS_ITS | Encounter Summary ---
Author Organization [facility] Health Address [address] [place] [address] Care Team Providers Care Hotel Service Supervisor Name Role Phone Luis M Kirkpatrick MD Unavailable [phone] Lucho aCsas MD Unavailable [phone] Luis M Kirkpatrick MD Primary Care Provider [phone] Encounter Details Date Type Department Care Team (Late st Contact Info) Description 05/29/2023 Telephone [facility] - Endocrinology [address] [place] [address], [place] [address] Sobia Meza MD [address] [place] [phone] Social History Tobacco Use Types Packs/Day Years Used Date Smoking Tobacco: Some Days Cigarettes 0.5 30 Smokeless Tobacco: Former Alcohol Use Standard Drinks/Week Comments Yes 0 (1 standard drink = 0.6 oz pur e alcohol) socially Comments No Sex and Gender Information Value Date Recorded Sex Assigned at Not on file Legal Sex Female 1:22 PM FIRST COAT SANDER Gender Identity Not on file Sexual Orientation Not on file documented as of this encounter Miscellaneous Notes * Telephone Encounter - Riggs Elana - 05/29/2023 8:32 AM CST Patient called in requesting a Med refill. Drug type:LANTUS PEN, ONE TOUCH ULTRA STRIPS, AND PEN NEEDLES BUT MAY NEED A SUBSTITUTE BRAND OF PEN NEEDLES DUE TO INSURANCE NOT COVERING. Pharmacy:[id number] - [address] [facility] [place] [address] [facility] [place] [address] Patient call back number: [phone] . PATIENT ALSO STATES HER BLOOD SUGAR IS STILL IN THE 300'S AND WOULD LIKE A CALL FROM THE OFFICE. T COAT SANDER documented in this encounter Plan of Treatment Not on file documented as of this encounter Visit Diagnoses Not on filedocumented in this encounter Care Teams Hotel Service Supervisor Relationship Specialty Start Date End Date Luis M Kirkpatrick MD [address] [place] [address] PCP - General 11/26/21 Luis M Kirkpatrick MD [address] [place] [address] 04/16/21 Lucho Casas MD [address] [place] [address] 10/07/18 documented as of this encounter
--- OUTSIDE RECORDS SUMMARY | 2025-01-02 13:46 | XMS_ITS | Encounter Summary ---
Author Organization [facility] Address [address] [place] [address] Care Team Providers Care Classroom Teacher Name Role Phone LuisM Kirkpatrick MD Unavailable [phone] Lucho Casas MD Unavailable [phone] Luis M Kirkpatrick MD Primary Care Provider [phone] Encounter Details Date Type Department Care Team (Late st Contact Info) Description 05/27/2023 Telephone [facility] - Centralized Scheduling [address] [place] [phone] Arelis Argueta MD [facility] [place] [phone] Social History Tobacco Use Types Packs/Day Years Used Date Smoking Tobacco: Some Days Cigarettes 0.5 30 Smokeless Tobacco: Former Alcohol Use Standard Drinks/Week Comments Yes 0 (1 standard drink = 0.6 oz pur e alcohol) socially Comments No Sex and Gender Information Value Date Recorded Sex Assigned at Not on file Legal Sex Female 1:22 PM RENAL DIETITIAN Gender Identity Not on file Sexual Orientation Not on file documented as of this encounter Miscellaneous Notes * Telephone Encounter - Romain Ridley MA - 05/27/2023 11:44 AM CST Called patient. To let her know that Dr. Berry sent her prescriptions into the pharmacy. Patient did not answer. Left voice mail to call office back. L DIETITIAN * Telephone Encounter - Oscar Sainilucía - 05/27/2023 9:15 AM CST Patient called in requesting a Med refill. Drug type: dulaglutide (Trulicity) 1.5 MG/0.5ML injection, insulin pen needle (B-D UF III MINI PEN NEEDLES) 31G X 5 MM needle and one touch ultra test strips. Pharmacy:[facility] [address] [place] [address] Patient call back number: [phone]. States thatshe is running out of medication. Is frustrated because she was told that Dr. Meza would be fillingher meds because Dr. Quintana is certified through [place]. Reached out to SCOTT Hoyos regarding this concern and was advised that Dr. Meza isn't here today. Ms. Segovia would like a call back to discuss further steps. Callback number listed above. . L DIETITIAN documented in this encounter Plan of Treatment Not on file documented as of this encounter Visit Diagnoses Not on filedocumented in this encounter Care Teams Classroom Teacher Relationship Specialty Start Date End Date Luis M Kirkpatrick MD [address] [place] [address] PCP - General 11/26/21 Luis M Kirkpatrick MD [address] [place] [address] 04/16/21 Lucho Casas MD [address] [place] [address] 10/07/18 documented as of this encounter
--- OUTSIDE RECORDS SUMMARY | 2025-01-02 13:46 | XMS_ITS | Clinical Summary ---
Author Organization [facility] [address] [place] [address] Care Team Providers Care Residential Solar Sales Consultant Name Role Phone Juan Pablo Forbes DO Unavailable [phone] Connor Barton MD Unavailable [phone] No, Physician Primary Care Provider [phone] Allergies Active Allergy Reactions Criticality Noted Date Comments Bacitracin Vomiting Low 03/16/2018 Sulfamethoxazole-Trimethoprim Diarrhea,Vomiting Low 05/13/2022 Celecoxib Nausea & Vomiting Low 03/16/2018 Clindamycin Hives Medium 03/16/2018 Propoxyphene-Acetaminophen Nausea & Vomiting Low Medications blood glucose diagnostic stripIndication s:Type 2 diabetes mellitus with hyperglycemia, with long-term current use of insulin ([facility]) accu-check guide test strips test blood sugars five times every day dx:E11.65 insulin dependent 150 each 3 8 Active FLUoxetine (PROzac) 20 mg capsule Take 1 capsule (20 mg total) by mouth 2 (two) times a day 0 8 Active metFORMIN (GLUCOPHAGE) 1,000 mg tabletIndicatio ns:Type 2 diabetes mellitus with hyperglycemia, with long-term current use of insulin ([facility]) TAKE 1 TABLET(1000 MG) BY MOUTH [...] 03/17/2018 Assessment & Plan (08/20/2018 4:20 PM QUALITY IMPROVEMENT SPECIALIST): Diabetes is improving with treatment. Reviewed insulin [...] . Assessment & Plan (06/21/2018 7:03 AM QUALITY IMPROVEMENT SPECIALIST): Diabetes is improving with treatment. Reviewed insulin [...] . Assessment & Plan (05/23/2018 8:52 PM QUALITY IMPROVEMENT SPECIALIST): Diabetes is improving with treatment. A1c - [...] type 2, - patho physiology, short and long-term complications of uncontrolled DM, diet and exercise [...] 03/17/2018 Assessment & Plan (08/20/2018 4:21 PM QUALITY IMPROVEMENT SPECIALIST): Hypertension is chronic, well controlled Continue current treatment regimen. Dietary sodium restriction. Weight loss. Regular aerobic exercise. Continue current medications. Blood pressure will be reassessed at the next regular appointment. Assessment & Plan (06/21/2018 7:04 AM QUALITY IMPROVEMENT SPECIALIST): Hypertension is chronic, well controlled Continue current [...] 03/17/2018 Assessment & Plan (08/20/2018 4:21 PM QUALITY IMPROVEMENT SPECIALIST): Pt. On statin therapy Nutrition counseling provided Advised to increase aerobic exercise Assessment & Plan (06/21/2018 7:04 AM QUALITY IMPROVEMENT SPECIALIST): Pt. On statin therapy Nutrition counseling provided Advised to increase aerobic exercise Assessment & Plan (03/17/2018 7:44 AM CDT): Pt. On statin therapy Nutrition counseling provided Advised to increase aerobic exercise Insulin pump status 03/17/2018 Assessment & Plan (08/20/2018 4:21 PM QUALITY IMPROVEMENT SPECIALIST): Have long acting , basal insulin ( [...] 02/18 Assessment & Plan (08/20/2018 4:21 PM QUALITY IMPROVEMENT SPECIALIST): Obesity is improving with lifestyle modifications. Discussed [...] discussed. Assessment & Plan (06/21/2018 7:04 AM QUALITY IMPROVEMENT SPECIALIST): Obesity is improving with lifestyle habits Discussed [...] Date Smoking Tobacco: Every Day Cigarettes 0.2 44.5 Started: 1981 Smokeless Tobacco: Never Tobacco Cessation:Ready [...] often do you attend chur ch or episcopalian services? 1 to 4 times per year [...] place to sleep or slept in a retirement (including now)? No 02/17/2023 Personal Safety Answer Date Recorded Have you ever been in or are you currently in a harmful physical or emotional relationship or is someone making you feel afraid or unsafe? Denies 08/15/2023 Comments No Sex and Gender Information Value Date Recorded Sex Assigned at Not on file Legal Sex Female 6:30 AM QUALITY IMPROVEMENT SPECIALIST Gender Identity Not on file Sexual Orientation Not on file Obstetrics History Last Filed Vital Signs Vital Sign Reading Time Taken Comments Blood Pressure 153/90 08/16/2023 7:30 AM QUALITY IMPROVEMENT SPECIALIST Pulse 87 08/16/2023 7:30 AM QUALITY IMPROVEMENT SPECIALIST Temperature 36.8 C (98.2 F) 08/16/2023 7:30 AM QUALITY IMPROVEMENT SPECIALIST Respiratory Rate 18 08/16/2023 7:30 AM QUALITY IMPROVEMENT SPECIALIST Oxygen Saturation 99% 08/16/2023 7:30 AM QUALITY IMPROVEMENT SPECIALIST Inhaled Oxygen Concentration - - Weight 100.7 kg (222 lb 0.1 oz) 024 11:25 PM QUALITY IMPROVEMENT SPECIALIST Height 165.1 cm (5' 5) 08/14/2023 11:2 5 PM QUALITY IMPROVEMENT SPECIALIST Body Mass Index 36.94 08/14/2023 11:25 PM QUALITY IMPROVEMENT SPECIALIST Plan of Treatment Health Maintenance Due [...] Diagnosis Comments EGFR Routine 08/15/2023 4:36 AM QUALITY IMPROVEMENT SPECIALIST HEMOGLOBIN A1C STAT 08/14/2023 6:14 PM QUALITY IMPROVEMENT SPECIALIST POCT LIPID PANEL Routine 03/16/2018 1:50 PM CDT Type 2 diabetes mellitus with hyperglycemia, with long-term current use of insulin (HCC) from Last 3 Months or Most Recently Relevant to Health Maintenance Results * eGFR (08/15/2023 4:36 AM QUALITY IMPROVEMENT SPECIALIST) eGFR 118 mL/min/1. 73 m2 [facility] [...] last reviewed 2021. Blood 08/15/2023 4:36 AM QUALITY IMPROVEMENT SPECIALIST 08/15/2023 4:36 AM QUALITY IMPROVEMENT SPECIALIST Drew Early MD LAB BLOOD ORDERABLES Final R esult Performing Organization Address [facility] Co de Phone Number [facility] [address] [facility] [employer] [address] * (ABNORMAL) Hemoglobin A1c (08/14/2023 6:14 PM QUALITY IMPROVEMENT SPECIALIST) Hgb A1C 11.5(H) 4.0 - 5.6 % [facility] Comment:Testing performed by : [address] [address] Estimated Average Glucose 283 mg/dL [facility] Comment: The ADA recommends reporting an estimated Average Glucose (eAG) with all Hemoglobin A1c results using the equation derived from a study of 507 normal and diabetic adults. Minority populations were underrepresented and children were not included. (Diabetes Care 31:5621-1055, 2008). The eAG is not equivalent to a fasting glucose. Testing performed by: [address] [address] Blood 08/14/2023 6:14 PM QUALITY IMPROVEMENT SPECIALIST 08/14/2023 6:15 PM QUALITY IMPROVEMENT SPECIALIST Luis Fernando Barragan DO LAB BLOOD ORDERABLES Final Result Performing Organization Address [facility] Co de Phone Number [facility] [address] [facility] [place] [employer] [place] [address] * POCT lipid panel (03/16/2018 1:50 PM [...] Advance Directives For more information, please contact: [phone] * Full Code (Latest Code Status on File) Date Activated Date Inactivated Comments 08/14/2023 11:22 PM 08/16/2023 3:36 PM * Full Code Date Activated Date Inactivated Comments 02/16/2023 10:52 PM 02/22/2023 5:12 PM Care Teams Residential Solar Sales Consultant Relationship Specialty Start Date End Date No, Physician PCP - General 08/14/23 Juan Pablo Forbes DO Internal Medicine 03/17/18 [place] [address] [address] [facility] [address] [place] [address] Consulting Physician Endocrinology 09/01/18
--- OUTSIDE RECORDS SUMMARY | 2025-01-02 13:46 | XMS_ITS | Encounter Summary ---
Author Organization [facility] Health Address [address] [facility] [place] [address] Care Team Providers Care Label Operator Name Role Phone Luis M Kirkpatrick MD Unavailable [phone] Lucho Casas MD Unavailable [phone] Luis M Kirkpatrick MD Primary Care Provider [phone] Encounter Details Date Type Department Care Team (Late st Contact Info) Description 04/23/2023 Telephone [facility] - Centralized Scheduling [address] [place] [phone] Arelis Argueta MD [address] [place] [phone] Social History Tobacco Use Types Packs/Day Years Used Date Smoking Tobacco: Some Days Cigarettes 0.5 30 Smokeless Tobacco: Former Alcohol Use Standard Drinks/Week Comments Yes 0 (1 standard drink = 0.6 oz pur e alcohol) socially Comments No Sex and Gender Information Value Date Recorded Sex Assigned at Not on file Legal Sex Female 1:22 PM DUST COLLECTOR OPERATOR Gender Identity Not on file Sexual Orientation Not on file documented as of this encounter Plan of Treatment Not on file documented as of this encounter Visit Diagnoses Not on filedocumented in this encounter Care Teams Label Operator Relationship Specialty Start Date End Date uLis M Kirkpatrick MD [address] [place], [place] [id number] PCP - General 11/26/21 Luis M Kirkpatrick MD [address] [place], [place] [id number] 04/16/21 Lucho Casas MD [address] [place] [address] 10/07/18 documented as of this encounter
--- OUTSIDE RECORDS SUMMARY | 2025-01-02 13:46 | XMS_ITS | Referral Summary ---
Author Organization [facility] Physician Office Building [address] [place] [address] Care Team Providers Care Marketing Technology Specialist Name Role Phone Juan Pablo Forbes DO Unavailable [phone] Connor Barton MD Unavailable [phone] No, Physician Primary Care Provider [phone] Allergies Active Allergy Reactions Criticality Noted Date Comments Bacitracin Vomiting Low 03/16/2018 Sulfamethoxazole-Trimethoprim Diarrhea,Vomiting Low 05/13/2022 Celecoxib Nausea & Vomiting Low 03/16/2018 Clindamycin Hives Medium 03/16/2018 Propoxyphene-Acetaminophen Nausea & Vomiting Low Medications blood glucose diagnostic stripIndication s:Type 2 diabetes mellitus with hyperglycemia, with long-term current use of insulin ([facility]) accu-check guide test strips test blood sugars five times every day dx:E11.65 insulin dependent 150 each 3 8 Active FLUoxetine (PROzac) 20 mg capsule Take 1 capsule (20 mg total) by mouth 2 (two) times a day 0 8 Active metFORMIN (GLUCOPHAGE) 1,000 mg tabletIndicatio ns:Type 2 diabetes mellitus with hyperglycemia, with long-term current use of insulin ([facility]) TAKE 1 TABLET(1000 MG) BY MOUTH TWICE [...] 03/17/2018 Assessment & Plan (08/20/2018 4:20 PM PALLETISER OPERATOR): Diabetes is improving with treatment. Reviewed insulin [...] . Assessment & Plan (06/21/2018 7:03 AM PALLETISER OPERATOR): Diabetes is improving with treatment. Reviewed insulin [...] . Assessment & Plan (05/23/2018 8:52 PM PALLETISER OPERATOR): Diabetes is improving with treatment. A1c - [...] type 2, - patho physiology, short and group home complications of uncontrolled DM, diet and exercise [...] 03/17/2018 Assessment & Plan (08/20/2018 4:21 PM PALLETISER OPERATOR): Hypertension is chronic, well controlled Continue current treatment regimen. Dietary sodium restriction. Weight loss. Regular aerobic exercise. Continue current medications. Blood pressure will be reassessed at the next regular appointment. Assessment & Plan (06/21/2018 7:04 AM PALLETISER OPERATOR): Hypertension is chronic, well controlled Continue current [...] 03/17/2018 Assessment & Plan (08/20/2018 4:21 PM PALLETISER OPERATOR): Pt. On statin therapy Nutrition counseling provided Advised to increase aerobic exercise Assessment & Plan (06/21/2018 7:04 AM PALLETISER OPERATOR): Pt. On statin therapy Nutrition counseling provided Advised to increase aerobic exercise Assessment & Plan (03/17/2018 7:44 AM CDT): Pt. On statin therapy Nutrition counseling provided Advised to increase aerobic exercise Insulin pump status 03/17/2018 Assessment & Plan (08/20/2018 4:21 PM PALLETISER OPERATOR): Have long acting , basal insulin ( [...] 02/18 Assessment & Plan (08/20/2018 4:21 PM PALLETISER OPERATOR): Obesity is improving with lifestyle modifications. Discussed [...] discussed. Assessment & Plan (06/21/2018 7:04 AM PALLETISER OPERATOR): Obesity is improving with lifestyle habits Discussed [...] often do you attend chur ch or taoist services? 1 to 4 times [...] place to sleep or slept in a care home (including now)? No 02/17/2023 Personal Safety Answer Date Recorded Have you ever been in or are you currently in a harmful physical or emotional relationship or is someone making you feel afraid or unsafe? Denies 08/15/2023 Comments No Sex and Gender Information Value Date Recorded Sex Assigned at Not on file Legal Sex Female 6:30 AM PALLETISER OPERATOR Gender Identity Not on file Sexual Orientation Not on file Last Filed Vital Signs Vital Sign Reading Time Taken Comments Blood Pressure 153/90 08/16/2023 7:30 AM PALLETISER OPERATOR Pulse 87 08/16/2023 7:30 AM PALLETISER OPERATOR Temperature 36.8 C (98.2 F) 08/16/2023 7:30 AM PALLETISER OPERATOR Respiratory Rate 18 08/16/2023 7:30 AM PALLETISER OPERATOR Oxygen Saturation 99% 08/16/2023 7:30 AM PALLETISER OPERATOR Inhaled Oxygen Concentration - - Weight 100.7 kg (222 lb 0.1 oz) 024 11:25 PM PALLETISER OPERATOR Height 165.1 cm (5' 5) 08/14/2023 11:2 5 PM PALLETISER OPERATOR Body Mass Index 36.94 08/14/2023 11:25 PM PALLETISER OPERATOR Plan of Treatment Not on file Procedures Procedure Name Priority Date/Time Associated Diagnosis Comments EGFR Routine 08/15/2023 4:36 AM PALLETISER OPERATOR HEMOGLOBIN A1C STAT 08/14/2023 6:14 PM PALLETISER OPERATOR POCT LIPID PANEL Routine 03/16/2018 1:50 PM CDT Type 2 diabetes mellitus with hyperglycemia, with long-term current use of insulin (HCC) from Last 3 Months or Most Recently Relevant to Health Maintenance Results * eGFR (08/15/2023 4:36 AM PALLETISER OPERATOR) eGFR 118 mL/min/1. 73 m2 JER COYNE [...] last reviewed 2021. Blood 08/15/2023 4:36 AM PALLETISER OPERATOR 08/15/2023 4:36 AM PALLETISER OPERATOR Drew Early MD LAB BLOOD ORDERABLES Final R esult JER [address] [facility] Department [place] [address] * (ABNORMAL) Hemoglobin A1c (08/14/2023 6:14 PM PALLETISER OPERATOR) [facility] Hgb A1C 11.5(H) 4.0 - 5.6 % JER Comment:Testing performed by : [address] [address] Estimated Average Glucose 283 mg/dL JER Comment: The ADA recommends reporting an estimated Average Glucose (eAG) with all Hemoglobin A1c results using the equation derived from a study of 507 normal and diabetic adults. Minority populations were underrepresented and children were not included. (Diabetes Care 31:7028-4531, 2008). The eAG is not equivalent to a fasting glucose. Testing performed by: [address] [address] Blood 08/14/2023 6:14 PM PALLETISER OPERATOR 08/14/2023 6:15 PM PALLETISER OPERATOR us Luis Fernando Barragan DO LAB BLOOD ORDERABLES Final Result [facility] [address] [facility] Department [place] [address] * POCT lipid panel (03/16/2018 1:50 PM [...] Indicated MDR gram neg/ESBL 05/16/2023 05/16/2023 Insurance [facility] Advance Directives For more information, please contact: [phone] * Full Code (Latest Code Status on File) Date Activated Date Inactivated Comments 08/14/2023 11:22 PM 08/16/2023 3:36 PM * Full Code Date Activated Date Inactivated Comments 02/16/2023 10:52 PM 02/22/2023 5:12 PM Care Teams Marketing Technology Specialist Relationship Specialty Start Date End Date No, Physician PCP - General 08/14/23 Juan Pablo Forbes DO Internal Medicine 03/17/18 [place] [address] [facility] [address] [place] [address] Consulting Physician Endocrinology 09/01/18
--- OUTSIDE RECORDS SUMMARY | 2025-01-02 13:46 | XMS_ITS | Data Portability ---
Author Organization [place] [facility] [employer], Main Office Address [address] [place] [address] Care Team Providers Care Forest Fire Fighter Name Role Phone DOMITILA DORMAN Primary Care Provider DOMITILA DORMAN Referring Provider Assessment Encounter Date Assessment Date Assessment LastModified [...] symptoms to completely resolve. She may use doij-xcy-ebnexim anti-inflammatori es or Tylenol for pain control. She does have ibuprofen 600 mg but only takes it as needed. Recommend she take it on a more regular basis to help with her symptoms. If her symptoms not improve she can call otherwise we will plan on seeing her back as needed. 20 minutes was spent treatment patient more than half of this in [id number] conversation Not available 11/07/2022 12:52:13 12/22/2024 12/22/2024 [...] Appointments None recorded. Lab CBC 2024 025 PERRIS [facility], [address], [place], [address], 5 09:47:15 C-reactive protein, quantitati ve, serum or plasma 2024 025 [email or web address] [facility], [address], [place], [address], 5 10:40:54 ESR (erythrocy te sedimentat ion rate), blood 2024 025 [email or web address] [facility], [address], [place], [address], 5 10:40:54 Referral None recorded. Procedures None recorded. Surgeries None recorded. Imaging CT, knee, w/o contrast - Please give patient disc 2024 025 [facility], [address], [place], [address], 5 17:35:18 XR, knee 2022 023 [email or web address] [facility] [place], [address] [facility] [address], [place], [address], 3 21:15:56 Medication Orders None recorded. Patient TargetsNo targets recorded. Patient InstructionsNo instructions recorded. Reason for Referral None Reported. Results Created Date Observation Date Name Description Value Unit Range Abnormal Flag Note LastModifiedBy Organization Detail LastModifiedTime 01/03/20 22 01/03/2022 CRYST ALS BODY FLUID crystal negati ve Not Available [facility] (Lab) [address] [place], [address], 01/03/2022 11:59:16 01/03/20 22 01/02/[address] W/DIF F-AUT O color light- yellow Not Available [facility] (Lab) [address] [place], [address], 01/02/2022 21:27:26 01/03/20 22 01/02/[address] W/DIF F-AUT O appearance hazy Not Available [facility] (Lab) [address] [place], [address], 01/02/2022 21:27:26 01/03/20 22 01/02/[address] W/DIF F-AUT O volume 3.0 mL Not Available [facility] (Lab) [address] [place], [address], 01/02/2022 21:27:26 01/03/20 22 01/02/[address] W/DIF F-AUT O WBC, body fluid 1103 /uL Not Available [facility] (Lab) [address] [place], [address], 01/02/2022 21:27:26 01/03/20 22 01/02/[address] W/DIF F-AUT O WBC body fluid-DNR 1.103 Not Available [facility] (Lab) [address] [place], [address], 01/02/2022 21:27:26 01/03/20 22 01/02/[address] W/DIF F-AUT O RBC, body fluid 2000 /uL Not Available [facility] (Lab) [address] [place], [address], 01/02/2022 21:27:26 01/03/20 22 01/02/[address] W/DIF F-AUT O RBC body fluid-DNR 0.002 Not Available [facility] (Lab) [address] [place], [address], 01/02/2022 21:27:26 01/03/20 22 01/02/[address] W/DIF F-AUT O % poly 5 % Not Available [facility] (Lab) [address] [place], [address], 01/02/2022 21:27:26 01/03/20 22 01/02/[address] W/DIF F-AUT O % mono 95 % Not Available [facility] (Lab) [address] [place], [address], 01/02/2022 21:27:26 01/03/20 22 01/02/[address] W/DIF F-AUT O source synovi al Not Available [facility] (Lab) [address] [place], [address], 01/02/2022 21:27:26 01/02/20 22 01/01/2022 XR, knee, 3 view No observ ation record ed. [id number] Not Available 09/17/2022 13:35:50 11/08/19 23 XR, knee No observ ation record ed. [facility] [address] [facility] [address], [place], [address], 11/07/2022 12:48:21 12/23/19 25 12/19/2024 XR, knee, 1 or 2 view No observ ation record ed. [email or web address] Not Available 12/22 15:44:08 12/30/19 25 12/29/2024 US, biggle x, venou s, lower extre mity No observ ation record ed. [email or web address] [address] [facility] [address], [place], [address], 12/30/2024 10:09:43 Result Notes None recorded. Problems Name Problem SNOMED Code Status Onset Date Resolution Date Notes Provider Name and Address Organization Details Recorded Time Bilateral osteoarthr itis of knees 0203810544845 07 Active 2021 Not Available [facility] 13:34:53 Pain of right knee joint 1486495998660 00 Active 2021 Not Available [facility] 3 13:34:53 Pain of bilateral knee joints 6878669001862 04 Active 2021 Not Available [facility] 3 13:34:53 Prosthetic joint mechanical failure 548493100 Active 2024 Arleth nicole, [place] [facility] 5 09:57:54 Pain of knee region 3689985386 Active 2024 MARKIE Morataya [address] [facility] [facility] [address], [place], [address] , [facility] 5 10:30:42 Localized swelling of right lower limb 2846680445910 9101 Active 2024 Arleth Rdz [facility], [place] [facility] 5 17:04:25 Problem Notes None recorded. Procedures Surgical History Date Name Laterality Status Provider Name and Address Organization Details Recorded Time Knee Surgery completed Not Available [facility] 09/17/2022 13:34:45 tonsilectomy/a denoids completed Not Available [facility] 09/17/2022 13:34:45 section completed Not Available [facility] 09/17/2022 13:34:45 Imaging Results None recorded. Procedure Notes None recorded. Medical Equipment None Reported. Allergies Allergen ID Allergen Name Allergen Category Reaction Reaction Severity Criticality Documentation Date Start Date Code Code System Note Provider Name and Address Organization Details Recorded Time 44663 lorcaseri n medicatio n Not available Not available Not available 09/17/2022 67900 01 RxNorm Not Available [facility] 3 13:35:47 75165 Bactrim medicatio n diarrhea vomiting Not available Not available Not available 09/17/2022 71713 9 RxNorm Not Available [facility] 3 13:35:47 45823 Celebrex medicatio n diarrhea vomiting Not available Not available Not available 12/22/2024 75669 7 RxNorm Verito Beto, EYEWEAR CONSULTANT null, [place] [facility] 5 09:35:05 29455 clindamyc in Not available hives Not available Not available 12/22/2024 2582 RxNorm Verito Beto, EYEWEAR CONSULTANT null, [place] [facility] 09:36:19 Medications Name Sig Start Date Stop [...] Available [employer] Pen Needle 31 gauge x 5/16 USE 4 PEN NEEDLES PER DAY active Not Available Not Available No t Available [employer] Pen Needle 31 gauge x 3/16 USE ONCE DAILY FOR INJECTION S active [...] Updated DateTime 11/07/2022 162.56 cm MALENA Valencia [employer] 11/07/2022 12:10:12 Date Recorded Body height Body mass index (BMI) Body weight Provider Name and Address Organization Details Last Updated DateTime 12/22/2024 165.1 cm 34.1 kg/m2 14322.44 g Verito Pérez CNA [employer] 12/22/2024 09:34:11 Date Recorded Body mass index (BMI) Body height Body weight Provider Name and Address Organization Details Last Updated DateTime 01/02/2022 43.1 kg/m2 162.56 cm 173069.68 g Not Available [facility] 09/17/2022 13:34:47 Date Recorded Body height Provider Name an d Address Organization Details Last Updated DateTime 01/16/2022 162.56 cm Not Available [facility] 13:34:47 Date Recorded Body height Provider Name an d Address Organization Details Last Updated DateTime 04/17/2022 162.56 cm Not Available [facility] 13:34:47 Social History Question Answer Notes LastModified by Organizat ion Details LastModified Time Tobacco Smoking Status Current Every Day Smoker Not Available [facility] 09/17/2022 13:34:41 How Much Tobacco Do You Smoke? 0.5 PPD Information not available 12/22/2024 How Many Years Have You Smoked Tobacco? 30 Information not available 12/22/2024 Sex: Unknown Functional Status Question Answer Note LastModified by Organizat ion Details LastModified Time What is your level of alcohol consumption? Occasional [id number] Information not available 09/17/2022 Mental Status None recorded. Family History Nothing Reported. Medical History Condition Response BLINDNESS N KIDNEY STONES N MRSA N CARPAL TUNNEL SYNDROME N LUNG DISEASE/DISORDER N HISTORY OF DRUG ABUSE N COPD N RADIATION / CHEMOTHERAPY N SPORTS INJURY N ANKLE PAIN N BLOOD DISEASES N SCHIZOPHRENIA N SHINGLES N BOWEL PROBLEMS N SHOULDER PAIN N DEPRESSION (INCLUDING POST ) N STROKE/TIA N ULCERS N KNEE PAIN [...] HAVE YOU BEEN HOSPITALIZED OR SEEN IN [facility] IN THE PAST YEAR ? N [...] SNOMED-CT Code Diagnosis ICD10 Code Diagnosis Note [id number] Fady Wilde MD [facility]_[address] [address] 01/02/2022 00:00:00 01/20/2022 16:25:29 [id number] Fady Wilde MD [facility]_[address] [address] 01/16/2022 00:00:00 01/20/2022 16:36:07 [id number] MARKIE Angulo [facility]_[address] [address] 04/17/2022 00:00:00 04/17/2022 15:51:11 [id number] Fady Wilde MD [facility] [address] [place] [address] 11/07/2022 12:00:50 11/07/2022 12:54:24 Pain of right knee joint 3642239026 29268 M25.188 [id number] Juan Pablo Mcclelland MD [facility] [address] [place] [address] 12/22/2024 09:12:25 12/22/2024 10:35:37 Pain of right knee joint 4260317246 43031 M25.561 History of right total knee replacement 1768599880 584375 Z96.651 Pain of knee region 1003 721232 T84.84XA Z96.659 History of left total knee replacement 7101790419 962907 Z96.652 Health Concerns Section Related Observation LastModified by Organization Detai ls LastModified Time None Recorded Concern Status LastModified by Organization Details LastModified Time None Recorded Advance Directives Directive None Recorded Payers Insurance Date Sequence Insurance Name Policy Number Policy Skaggs Covered Member ID Skaggs Member ID Guarantor Name 12/22/2024 1 [facility] ON OR AFTER 01/17/21 (MEDICAID REPLACEMENT - HMO) Whit Segovia [id number] Whit Segovia Notes Date Note Type Note [...] the patient did have x-rays done at [facility] recently on December 19. She had [...] sweats otherwise feels well. MARKIE Morataya [address] [address], [place], [address], [place] [facility] [employer] 12/22/2024 10:40:51 OBGyn Episode No OBEpisode recorded.
--- OUTSIDE RECORDS SUMMARY | 2025-01-02 13:46 | XMS_ITS | Continuity of Care Document ---
Author Organization [facility] Address [address] [place] [address] [place] [address] Phone Care Team Providers Care Retail Cosmetics Sales Counter Manager Name Role Phone Gage Kaiser Unavailable Unavailable Procedures Procedure Date Eye Exam & Treatment Refraction Eye Exam, New Patient Advance Directives Directive Yes / No Effective Date File Name No Information Encounters Encounter Description Practice Location Reason(s) For Visit Diagnoses Date Provider Providers Copied on Encounter [facility], [address] [place] [address] [address], [place], [place], [address], tel:[phone] [facility] No Information 8-201 0 Krishnasamy Gage. [address] [address], [place], [place], [facility], [place]. tel:[phone] [facility], [address] [place] [address] [address], [place], [place], [id number], tel:[phone] [facility] No Information 0-200 9 Krishnasamy Gage. [address] [facility] [address], [place], [address], [place]. tel:[phone] Family History Family Member Type Diagnosis Age At Onset No Information Payers Payer name Insurance type Covered democrat ID Authortaylora bill(s) [facility] [id number] Social History Type Description Quantity Date Captured [...]
--- OUTSIDE RECORDS SUMMARY | 2025-01-02 13:46 | XMS_ITS | Clinical Summary ---
Author Organization [facility] Address [address] [place] [address] Care Team Providers Care Commercial Baking Teacher Name Role Phone Unavailable Primary Care Provider Unavailabl e Social History Tobacco Use Types Packs/Day Years Used Date Smoking Tobacco: Never Assessed Comments Unknown Sex and Gender Information Value Date Recorded Sex Assigned at Not on file Legal Sex Female 9:24 AM LOGISTICS PLANNING MANAGER Gender Identity Not on file Sexual [...]
--- OUTSIDE RECORDS SUMMARY | 2025-01-02 13:46 | XMS_ITS | Encounter Summary ---
Author Organization [facility] Address [address] [facility] [place] [address] Care Team Providers Care Charter And Tour Bus Driver Name Role Phone Luis M Kirkpatrick MD Unavailable [phone] Lucho Casas MD Unavailable [phone] Luis M Kirkpatrick MD Primary Care Provider [phone] Encounter Details Date Type Department Care Team (Late st Contact Info) Description 05/27/2023 Telephone [facility] - Endocrinology [address] [place] [address], [facility] [place] [address] Arelis Argueta MD [address] [place] [address] [place] [address] Social History Tobacco Use Types Packs/Day Years Used Date Smoking Tobacco: Some Days Cigarettes 0.5 30 Smokeless Tobacco: Former Alcohol Use Standard Drinks/Week Comments Yes 0 (1 standard drink = 0.6 oz pur e alcohol) socially Comments No Sex and Gender Information Value Date Recorded Sex Assigned at Not on file Legal Sex Female 1:22 PM CAFETERIA CASHIER Gender Identity Not on file Sexual Orientation Not on file documented as of this encounter Miscellaneous Notes * Telephone Encounter - Arelis Argueta MD - 05/29/2023 12:08 PM CST Done TERIA CASHIER * Telephone Encounter - Lia Grier LPN [...] doesn't want to go to the ER TERIA CASHIER * Telephone Encounter - Tarsha Cedillo - [...] two doses remaining Patient Call Back number: [phone] TERIA CASHIER documented in this encounter Plan of Treatment Not on file documented as of this encounter Visit Diagnoses Not on filedocumented in this encounter Care Teams Charter And Tour Bus Driver Relationship Specialty Start Date End Date Luis M Kirkpatrick MD [address] [place] [address] PCP - General 11/26/21 Luis M Kirkpatrick MD [address] [place] [address] 04/16/21 Lucho Casas MD [address] [place] [address] 10/07/18 documented as of this encounter
--- OUTSIDE RECORDS SUMMARY | 2025-01-02 13:46 | XMS_ITS | Encounter Summary ---
Author Organization [facility] Address [address] [facility] [place] [address] Care Team Providers Care Slat Basket Maker Helper Name Role Phone Luis M Kirkpatrick MD Unavailable [phone] Lucho Casas MD Unavailable [phone] Luis M Kirkpatrick MD Primary Care Provider [phone] Reason for Visit * Reason Onset Date Comments MEDICATION REFILL 08/04/2022 Encounter Details Date Type Department Care Team (Late st Contact Info) Description 08/04/2022 Refill [facility], Diabetes and Metabolism [address] [place] [address] Db Sue MD [address] [place] [address] MEDICATION REFILL Social History Tobacco Use Types Packs/Day Years Used Date Smoking Tobacco: Some Days Cigarettes 0.5 30 Smokeless Tobacco: Former Alcohol Use Standard Drinks/Week Comments Yes 0 (1 standard drink = 0.6 oz pur e alcohol) socially Comments No Sex and Gender Information Value Date Recorded Sex Assigned at Not on file Legal Sex Female 1:22 PM SPOUT POSITIONER Gender Identity Not on file Sexual Orientation Not on file documented as of this encounter Miscellaneous Notes * Telephone Encounter - Silva Belle LPN - 08/04/2022 9:59 AM CST ERROR T POSITIONER documented in this encounter Plan of Treatment Not on file documented as of this encounter Visit Diagnoses Diagnosis Diabetes mellitus type 2, insulin dependent (HCC)- Primary Type II or unspecified type diabetes mellitus without mention of complication, not stated as uncontrolled documented in this encounter Care Teams Slat Basket Maker Helper Relationship Specialty Start Date End Date Luis M Kirkpatrick MD [address] [place] [address] PCP - General 11/26/21 Luis M Kirkpatrick MD [address] [place] [address] 04/16/21 Lucho Casas MD [address] [place] [address] 10/07/18 documented as of this encounter
--- OUTSIDE RECORDS SUMMARY | 2025-01-02 13:46 | XMS_ITS | Encounter Summary ---
Author Organization [facility] Health Address [address] [facility] [place] [address] Care Team Providers Care Clinical Rehabilitation Aide Name Role Phone Luis M Kirkpatrick MD Unavailable [phone] Lucho Casas MD Unavailable [phone] Luis M Kirkpatrick MD Primary Care Provider [phone] Encounter Details Date Type Department Care Team (Late st Contact Info) Description 05/13/2023 Telephone [facility] Endocrinology [address] [place] [address], [facility] [place] [address] Arelis Argueta MD [address] [place] [address] [place] [address] Social History Tobacco Use Types Packs/Day Years Used Date Smoking Tobacco: Some Days Cigarettes 0.5 30 Smokeless Tobacco: Former Alcohol Use Standard Drinks/Week Comments Yes 0 (1 standard drink = 0.6 oz pur e alcohol) socially Comments No Sex and Gender Information Value Date Recorded Sex Assigned at Not on file Legal Sex Female 1:22 PM CAR VARNISHER Gender Identity Not on file Sexual Orientation [...] I tried calling her but she didn't pickers material handlers. Can you please let her know. If [...] Thanks so much. Patient Call Back number: [phone] documented in this encounter Plan of Treatment Not on file documented as of this encounter Visit Diagnoses Not on filedocumented in this encounter Care Teams Clinical Rehabilitation Aide Relationship Specialty Start Date End Date Luis M Kirkpatrick MD [address] [place] [address] PCP - General 11/26/21 Luis M Kirkpatrick MD [address] [place] [address] 04/16/21 Lucho Casas MD [address] [place] [address] 10/07/18 documented as of this encounter
--- OUTSIDE RECORDS SUMMARY | 2025-01-02 13:46 | XMS_ITS | Encounter Summary ---
Author Organization [facility] Health Address [address] [facility] [place] [place] [address] Care Team Providers Care Net Sql Developer Name Role Phone Luis M Kirkpatrick MD Primary Care Provider [phone] Lucho Casas MD Primary Care Provider [phone] Luis M Kirkpatrick MD Unavailable [phone] Lucho Casas MD Unavailable [phone] Luis M Kirkpatrick MD Primary Care Provider [phone] Reason for Visit * Reason Onset Date Comments Medication Prior Auth Request 01/24/2019 Encounter Details Date Type Department Care Team (Late st Contact Info) Description 01/24/2019 Telephone [facility], Diabetes and Metabolism [address] [place] [address] Timo Us MD [address] [place] [address] Medication Prior Auth Request Social History Tobacco Use Types Packs/Day Years Used Date Smoking Tobacco: Never Smokeless Tobacco: Never Alcohol Use Standard Drinks/Week Comments Yes 0 (1 standard drink = 0.6 oz pur e alcohol) Comments Unknown Sex and Gender Information Value Date Recorded Sex Assigned at Not on file Legal Sex Female 1:[address] TEAM MEMBER Gender Identity Not on file Sexual Orientation [...] a PA for this Rx as well. [facility] documented in this encounter Plan of Treatment Not on file documented as of this encounter Visit Diagnoses Not on filedocumented in this encounter Care Teams Net Sql Developer Relationship Specialty Start Date End Date Luis M Kirkpatrick MD [address] [place] [address] PCP - General 10/07/18 04/15/21 Lucho Casas MD [address] [place] [address] PCP - General 04/16/21 11/25/21 Luis M Kirkpatrick MD [address] [place] [address] PCP - General 11/26/21 Luis M Kirkpatrick MD [address] [place] [address] 04/16/21 Lucho Casas MD [address] [place] [address] 10/07/18 documented as of this encounter
--- OUTSIDE RECORDS SUMMARY | 2025-01-02 13:46 | XMS_ITS | Encounter Summary ---
Author Organization [facility] Health Address [address] [facility] [address] Care Team Providers Care Industrial Millwright Name Role Phone Luis M Kirkpatrick MD Unavailable [phone] Lucho Casas MD Unavailable [phone] Luis M Kirkpatrick MD Primary Care Provider [phone] Encounter Details Date Type Department Care Team (Late st Contact Info) Description 04/14/2023 Telephone [facility] - Centralized Scheduling [address] [place] [phone] Arelis Argueta MD [address] [place] [address] Social History Tobacco Use Types Packs/Day Years Used Date Smoking Tobacco: Some Days Cigarettes 0.5 30 Smokeless Tobacco: Former Alcohol Use Standard Drinks/Week Comments Yes 0 (1 standard drink = 0.6 oz pur e alcohol) socially Comments No Sex and Gender Information Value Date Recorded Sex Assigned at Not on file Legal Sex Female 1:22 PM EMPLOYER RELATIONS REPRESENTATIVE Gender Identity Not on file Sexual Orientation Not on file documented as of this encounter Plan of Treatment Not on file documented as of this encounter Visit Diagnoses Not on filedocumented in this encounter Care Teams Industrial Millwright Relationship Specialty Start Date End Date Luis M Kirkpatrick MD [address] [place], [place] [address] PCP - General 11/26/21 Luis M Kirkpatrick MD [address] [place], [place] [address] 04/16/21 Lucho Casas MD [address] [place] [address] 10/07/18 documented as of this encounter
[2025-01-02 14:47] LABS: Appearance Synovial Fluid Cloudy (Clear); Color Synovial Fluid Yellow (Colorless); Nucleated Cell Synovial Fluid 529 /uL (0-200); RBC Synovial Fluid 2000 /uL (0-0); Source Synovial Fluid Rt Knee Syn Fluid
[2025-01-02 15:15] LABS: Lymphocytes Synovial Fluid 40 %; Monocytes Synovial Fluid 58 %; Neutrophils Synovial Fluid 1 % (0-25)
[2025-01-02 15:16] LABS: Other Cells Synovial Fluid 1 %
== END 2025-01-02 12:52 | disposition home or self-care (01) ==
PROVIDERS: PCP Nurse Practitioner Family; Visit Provider Physician Assistant Surgical
DX: T84.018A Broken internal joint prosthesis, other site, initial encounter (principal); Z96.659 Presence of unspecified artificial knee joint
CPT/HCPCS: 20611; 87070; 87075; 87205; 89051

== ENCOUNTER 2025-01-03 17:20 | Outpatient (CLI) | payer OTHER, SELFPAY ==
--- OUTSIDE RECORDS SUMMARY | 2025-01-03 17:25 | XMS_ITS | Clinical Summary ---
Author Organization [facility] Physician Office Building [address] [place] [address] Care Team Providers Care Program Evaluator Name Role Phone Juan Pablo Forbes DO Unavailable [phone] Connor Barton MD Unavailable [phone] No, Physician Primary Care Provider [phone] Allergies Active Allergy Reactions Criticality Noted Date Comments Bacitracin Vomiting Low 03/16/2018 Sulfamethoxazole-Trimethoprim Diarrhea,Vomiting Low 05/13/2022 Celecoxib Nausea & Vomiting Low 03/16/2018 Clindamycin Hives Medium 03/16/2018 Propoxyphene-Acetaminophen Nausea & Vomiting Low Medications blood glucose diagnostic stripIndication s:Type 2 diabetes mellitus with hyperglycemia, with long-term current use of insulin ([facility]) accu-check guide test strips test blood sugars five times every day dx:E11.65 insulin dependent 150 each 3 8 Active FLUoxetine (PROzac) 20 mg capsule Take 1 capsule (20 mg total) by mouth 2 (two) times a day 0 8 Active metFORMIN (GLUCOPHAGE) 1,000 mg tabletIndicatio ns:Type 2 diabetes mellitus with hyperglycemia, with long-term current use of insulin ([facility]) TAKE 1 TABLET(1000 MG) BY MOUTH [...] 03/17/2018 Assessment & Plan (08/20/2018 4:20 PM ACQUISITION SPECIALIST): Diabetes is improving with treatment. Reviewed [...] . Assessment & Plan (06/21/2018 7:03 AM ACQUISITION SPECIALIST): Diabetes is improving with treatment. Reviewed [...] . Assessment & Plan (05/23/2018 8:52 PM ACQUISITION SPECIALIST): Diabetes is improving with treatment. A1c [...] type 2, - patho physiology, short and halfway complications of uncontrolled DM, diet and exercise [...] 03/17/2018 Assessment & Plan (08/20/2018 4:21 PM ACQUISITION SPECIALIST): Hypertension is chronic, well controlled Continue current treatment regimen. Dietary sodium restriction. Weight loss. Regular aerobic exercise. Continue current medications. Blood pressure will be reassessed at the next regular appointment. Assessment & Plan (06/21/2018 7:04 AM ACQUISITION SPECIALIST): Hypertension is chronic, well controlled Continue [...] 03/17/2018 Assessment & Plan (08/20/2018 4:21 PM ACQUISITION SPECIALIST): Pt. On statin therapy Nutrition counseling provided Advised to increase aerobic exercise Assessment & Plan (06/21/2018 7:04 AM ACQUISITION SPECIALIST): Pt. On statin therapy Nutrition counseling provided Advised to increase aerobic exercise Assessment & Plan (03/17/2018 7:44 AM CDT): Pt. On statin therapy Nutrition counseling provided Advised to increase aerobic exercise Insulin pump status 03/17/2018 Assessment & Plan (08/20/2018 4:21 PM ACQUISITION SPECIALIST): Have long acting , basal insulin [...] 02/18 Assessment & Plan (08/20/2018 4:21 PM ACQUISITION SPECIALIST): Obesity is improving with lifestyle modifications. [...] discussed. Assessment & Plan (06/21/2018 7:04 AM ACQUISITION SPECIALIST): Obesity is improving with lifestyle habits [...] Date Smoking Tobacco: Every Day Cigarettes 0.3 44.5 Started: 1981 Smokeless Tobacco: Never Tobacco [...] often do you attend chur ch or taoism services? 1 to 4 times per year 02/17/2023 Do you belong to any clubs o r organizations such as lutheran groups, unions, fraternal or athletic groups, or [...] place to sleep or slept in a custodial (including now)? No 02/17/2023 Personal Safety Answer Date Recorded Have you ever been in or are you currently in a harmful physical or emotional relationship or is someone making you feel afraid or unsafe? Denies 08/15/2023 Comments No Sex and Gender Information Value Date Recorded Sex Assigned at Not on file Legal Sex Female 6:30 AM ACQUISITION SPECIALIST Gender Identity Not on file Sexual Orientation Not on file Obstetrics History Last Filed Vital Signs Vital Sign Reading Time Taken Comments Blood Pressure 153/90 08/16/2023 7:30 AM ACQUISITION SPECIALIST Pulse 87 08/16/2023 7:30 AM ACQUISITION SPECIALIST Temperature 36.8 C (98.2 F) 08/16/2023 7:30 AM ACQUISITION SPECIALIST Respiratory Rate 18 08/16/2023 7:30 AM ACQUISITION SPECIALIST Oxygen Saturation 99% 08/16/2023 7:30 AM ACQUISITION SPECIALIST Inhaled Oxygen Concentration - - Weight 100.7 kg (222 lb 0.1 oz) 024 11:25 PM ACQUISITION SPECIALIST Height 165.1 cm (5' 5) 08/14/2023 11:2 5 PM ACQUISITION SPECIALIST Body Mass Index 36.94 08/14/2023 11:25 PM ACQUISITION SPECIALIST Plan of Treatment Health Maintenance Due [...] Diagnosis Comments EGFR Routine 08/15/2023 4:36 AM ACQUISITION SPECIALIST HEMOGLOBIN A1C STAT 08/14/2023 6:14 PM ACQUISITION SPECIALIST POCT LIPID PANEL Routine 03/16/2018 1:50 PM CDT Type 2 diabetes mellitus with hyperglycemia, with long-term current use of insulin (HCC) from Last 3 Months or Most Recently Relevant to Health Maintenance Results * eGFR (08/15/2023 4:36 AM ACQUISITION SPECIALIST) eGFR 118 mL/min/1. 73 m2 JER [...] last reviewed 2021. Blood 08/15/2023 4:36 AM ACQUISITION SPECIALIST 08/15/2023 4:36 AM ACQUISITION SPECIALIST Drew Early MD LAB BLOOD ORDERABLES Final R esult Performing Organization Address City/[facility] Co de Phone Number [facility] [address] [facility] [place] [address] * (ABNORMAL) Hemoglobin A1c (08/14/2023 6:14 PM ACQUISITION SPECIALIST) Hgb A1C 11.5(H) 4.0 - 5.6 % [facility] Comment:Testing performed by : [address] [address] Estimated Average Glucose 283 mg/dL [facility] Comment: The ADA recommends reporting an estimated Average Glucose (eAG) with all Hemoglobin A1c results using the equation derived from a study of 507 normal and diabetic adults. Minority populations were underrepresented and children were not included. (Diabetes Care 31:4663-7471, 2008). The eAG is not equivalent to a fasting glucose. Testing performed by: [address] [address] Blood 08/14/2023 6:14 PM ACQUISITION SPECIALIST 08/14/2023 6:15 PM ACQUISITION SPECIALIST Luis Fernando Barragan DO LAB BLOOD ORDERABLES Final Result Performing Organization Address [facility] Co de Phone Number [facility] [address] [facility] [place] [address] * POCT lipid panel (03/16/2018 1:50 PM [...] Advance Directives For more information, please contact: [phone] * Full Code (Latest Code Status on File) Date Activated Date Inactivated Comments 08/14/2023 11:22 PM 08/16/2023 3:36 PM * Full Code Date Activated Date Inactivated Comments 02/16/2023 10:52 PM 02/22/2023 5:12 PM Care Teams Program Evaluator Relationship Specialty Start Date End Date No, Physician PCP - General 08/14/23 Juan Pablo Forbes DO Internal Medicine 03/17/18 [place] [address] [facility] [address] [place] [address] Consulting Physician Endocrinology 09/01/18
--- OUTSIDE RECORDS SUMMARY | 2025-01-03 17:25 | XMS_ITS | Encounter Summary ---
Author Organization [facility] Address [address] [facility] [place] [address] Care Team Providers Care Maritime Guard Name Role Phone Luis M Kirkpatrick MD Unavailable [phone] Lucho Casas MD Unavailable [phone] Luis M Kirkpatrick MD Primary Care Provider [phone] Reason for Visit * Reason Onset Date Comments MEDICATION REFILL 08/04/2022 Encounter Details Date Type Department Care Team (Late st Contact Info) Description 08/04/2022 Refill [facility] Met[facility] [address] [place] [address] Db Sue MD [address] [place] [address] MEDICATION REFILL Social History Tobacco Use Types Packs/Day Years Used Date Smoking Tobacco: Some Days Cigarettes 0.5 30 Smokeless Tobacco: Former Alcohol Use Standard Drinks/Week Comments Yes 0 (1 standard drink = 0.6 oz pur e alcohol) socially Comments No Sex and Gender Information Value Date Recorded Sex Assigned at Not on file Legal Sex Female 1:22 PM ALLIANCE DIRECTOR Gender Identity Not on file Sexual Orientation Not on file documented as of this encounter Miscellaneous Notes * Telephone Encounter - Silva Belle LPN - 08/04/2022 9:59 AM CST ERROR ANCE DIRECTOR documented in this encounter Plan of Treatment Not on file documented as of this encounter Visit Diagnoses Diagnosis Diabetes mellitus type 2, insulin dependent (HCC)- Primary Type II or unspecified type diabetes mellitus without mention of complication, not stated as uncontrolled documented in this encounter Care Teams Maritime Guard Relationship Specialty Start Date End Date Luis M Kirkpatrick MD [address] [place] [address] PCP - General 11/26/21 Luis M Kirkpatrick MD [address] [place] [address] 04/16/21 Lucho Casas MD [address] [place] [address] 10/07/18 documented as of this encounter
--- OUTSIDE RECORDS SUMMARY | 2025-01-03 17:25 | XMS_ITS | Encounter Summary ---
Author Organization [facility] Health Address [address] [facility] [place] [address] Care Team Providers Care Publication Distributor Name Role Phone Luis M Kirkpatrick MD Unavailable [phone] Lucho Casas MD Unavailable [phone] Luis M Kirkpatrick MD Primary Care Provider [phone] Encounter Details Date Type Department Care Team (Late st Contact Info) Description 04/14/2023 Telephone [facility] - Central[facility] Scheduling [address] [place] [address] Arelis Argueta MD [address] [address] Social History Tobacco Use Types Packs/Day Years Used Date Smoking Tobacco: Some Days Cigarettes 0.5 30 Smokeless Tobacco: Former Alcohol Use Standard Drinks/Week Comments Yes 0 (1 standard drink = 0.6 oz pur e alcohol) socially Comments No Sex and Gender Information Value Date Recorded Sex Assigned at Not on file Legal Sex Female 1:22 PM EMPLOYEE COMMUNICATIONS COORDINATOR Gender Identity Not on file Sexual Orientation Not on file documented as of this encounter Plan of Treatment Not on file documented as of this encounter Visit Diagnoses Not on filedocumented in this encounter Care Teams Publication Distributor Relationship Specialty Start Date End Date Luis M Kirkpatrick MD [address] [place], [place] [address] PCP - General 11/26/21 Luis M Kirkpatrick MD [address] [place], [place] [address] 04/16/21 Lucho Casas MD [address] [place] [address] 10/07/18 documented as of this encounter
--- OUTSIDE RECORDS SUMMARY | 2025-01-03 17:25 | XMS_ITS | Encounter Summary ---
Author Organization [facility] Address [address] [place] [address] Care Team Providers Care Mat Tester Name Role Phone Luis M Kirkpatrick MD Unavailable [phone] Lucho Casas MD Unavailable [phone] Luis M Kirkpatrick MD Primary Care Provider [phone] Encounter Details Date Type Department Care Team (Late st Contact Info) Description 05/27/2023 Telephone [facility] - Centralized Scheduling [address] [place] [phone] Arelis Argueta MD [employer] [facility] [place] [address] Social History Tobacco Use Types Packs/Day Years Used Date Smoking Tobacco: Some Days Cigarettes 0.5 30 Smokeless Tobacco: Former Alcohol Use Standard Drinks/Week Comments Yes 0 (1 standard drink = 0.6 oz pur e alcohol) socially Comments No Sex and Gender Information Value Date Recorded Sex Assigned at Not on file Legal Sex Female 1:22 PM BRAKE LINING FINISHER Gender Identity Not on file Sexual Orientation Not on file documented as of this encounter Miscellaneous Notes * Telephone Encounter - Romain Ridley MA - 05/27/2023 11:44 AM CST Called patient. To let her know that Dr. Berry sent her prescriptions into the pharmacy. Patient did not answer. Left voice mail to call office back. E LINING FINISHER * Telephone Encounter - Oscar Sainilucía - 05/27/2023 9:15 AM CST Patient called in requesting a Med refill. Drug type: dulaglutide (Trulicity) 1.5 MG/0.5ML injection, insulin pen needle (B-D UF III MINI PEN NEEDLES) 31G X 5 MM needle and one touch ultra test strips. Pharmacy:[facility] [address] [place] [address] Patient call back number: [phone]. States thatshe is running out of medication. Is frustrated because she was told that Dr. Meza would be fillingher meds because Dr. Quintana is certified through [place]. Reached out to SCOTT Hoyos regarding this concern and was advised that Dr. Meza isn't here today. Ms. Segovia would like a call back to discuss further steps. Callback number listed above. . E LINING FINISHER documented in this encounter Plan of Treatment Not on file documented as of this encounter Visit Diagnoses Not on filedocumented in this encounter Care Teams Mat Tester Relationship Specialty Start Date End Date Luis M Kirkpatrick MD [address] [place] [address] PCP - General 11/26/21 Luis M Kirkpatrick MD [address] [place] [address] 04/16/21 Lucho Casas MD [address] [place] [address] 10/07/18 documented as of this encounter
--- OUTSIDE RECORDS SUMMARY | 2025-01-03 17:25 | XMS_ITS | Referral Summary ---
Author Organization [facility] [address] [place] [id number] Care Team Providers Care Belt Notcher Name Role Phone Juan Pablo Forbes DO Unavailable [phone] Connor Barton MD Unavailable [phone] No, Physician Primary Care Provider [phone] Allergies Active Allergy Reactions Criticality Noted Date Comments Bacitracin Vomiting Low 03/16/2018 Sulfamethoxazole-Trimethoprim Diarrhea,Vomiting Low 05/13/2022 Celecoxib Nausea & Vomiting Low 03/16/2018 Clindamycin Hives Medium 03/16/2018 Propoxyphene-Acetaminophen Nausea & Vomiting Low Medications blood glucose diagnostic stripIndication s:Type 2 diabetes mellitus with hyperglycemia, with long-term current use of insulin ([facility]) accu-check guide test strips test blood sugars five times every day dx:E11.65 insulin dependent 150 each 3 8 Active FLUoxetine (PROzac) 20 mg capsule Take 1 capsule (20 mg total) by mouth 2 (two) times a day 0 8 Active metFORMIN (GLUCOPHAGE) 1,000 mg tabletIndicatio ns:Type 2 diabetes mellitus with hyperglycemia, with long-term current use of insulin ([facility]) TAKE 1 TABLET(1000 MG) BY MOUTH TWICE [...] 03/17/2018 Assessment & Plan (08/20/2018 4:20 PM SYSTEMS ADMINISTRATOR): Diabetes is improving with treatment. Reviewed insulin [...] . Assessment & Plan (06/21/2018 7:03 AM SYSTEMS ADMINISTRATOR): Diabetes is improving with treatment. Reviewed insulin [...] . Assessment & Plan (05/23/2018 8:52 PM SYSTEMS ADMINISTRATOR): Diabetes is improving with treatment. A1c - [...] type 2, - patho physiology, short and jail complications of uncontrolled DM, diet and exercise [...] 03/17/2018 Assessment & Plan (08/20/2018 4:21 PM SYSTEMS ADMINISTRATOR): Hypertension is chronic, well controlled Continue current treatment regimen. Dietary sodium restriction. Weight loss. Regular aerobic exercise. Continue current medications. Blood pressure will be reassessed at the next regular appointment. Assessment & Plan (06/21/2018 7:04 AM SYSTEMS ADMINISTRATOR): Hypertension is chronic, well controlled Continue current [...] 03/17/2018 Assessment & Plan (08/20/2018 4:21 PM SYSTEMS ADMINISTRATOR): Pt. On statin therapy Nutrition counseling provided Advised to increase aerobic exercise Assessment & Plan (06/21/2018 7:04 AM SYSTEMS ADMINISTRATOR): Pt. On statin therapy Nutrition counseling provided Advised to increase aerobic exercise Assessment & Plan (03/17/2018 7:44 AM CDT): Pt. On statin therapy Nutrition counseling provided Advised to increase aerobic exercise Insulin pump status 03/17/2018 Assessment & Plan (08/20/2018 4:21 PM SYSTEMS ADMINISTRATOR): Have long acting , basal insulin ( [...] 02/18 Assessment & Plan (08/20/2018 4:21 PM SYSTEMS ADMINISTRATOR): Obesity is improving with lifestyle modifications. Discussed [...] discussed. Assessment & Plan (06/21/2018 7:04 AM SYSTEMS ADMINISTRATOR): Obesity is improving with lifestyle habits Discussed [...] often do you attend chur ch or mandaeism services? 1 to 4 times per year [...] place to sleep or slept in a half-way (including now)? No 02/17/2023 Personal Safety Answer Date Recorded Have you ever been in or are you currently in a harmful physical or emotional relationship or is someone making you feel afraid or unsafe? Denies 08/15/2023 Comments No Sex and Gender Information Value Date Recorded Sex Assigned at Not on file Legal Sex Female 6:30 AM SYSTEMS ADMINISTRATOR Gender Identity Not on file Sexual Orientation Not on file Last Filed Vital Signs Vital Sign Reading Time Taken Comments Blood Pressure 153/90 08/16/2023 7:30 AM SYSTEMS ADMINISTRATOR Pulse 87 08/16/2023 7:30 AM SYSTEMS ADMINISTRATOR Temperature 36.8 C (98.2 F) 08/16/2023 7:30 AM SYSTEMS ADMINISTRATOR Respiratory Rate 18 08/16/2023 7:30 AM SYSTEMS ADMINISTRATOR Oxygen Saturation 99% 08/16/2023 7:30 AM SYSTEMS ADMINISTRATOR Inhaled Oxygen Concentration - - Weight 100.7 kg (222 lb 0.1 oz) 024 11:25 PM SYSTEMS ADMINISTRATOR Height 165.1 cm (5' 5) 08/14/2023 11:2 5 PM SYSTEMS ADMINISTRATOR Body Mass Index 36.94 08/14/2023 11:25 PM SYSTEMS ADMINISTRATOR Plan of Treatment Not on file Procedures Procedure Name Priority Date/Time Associated Diagnosis Comments EGFR Routine 08/15/2023 4:36 AM SYSTEMS ADMINISTRATOR HEMOGLOBIN A1C STAT 08/14/2023 6:14 PM SYSTEMS ADMINISTRATOR POCT LIPID PANEL Routine 03/16/2018 1:50 PM CDT Type 2 diabetes mellitus with hyperglycemia, with long-term current use of insulin (HCC) from Last 3 Months or Most Recently Relevant to Health Maintenance Results * eGFR (08/15/2023 4:36 AM SYSTEMS ADMINISTRATOR) eGFR 118 mL/min/1. 73 m2 [facility] [...] last reviewed 2021. Blood 08/15/2023 4:36 AM SYSTEMS ADMINISTRATOR 08/15/2023 4:36 AM SYSTEMS ADMINISTRATOR Drew Early MD LAB BLOOD ORDERABLES Final R esult [facility] [address] [facility] Department [place] [address] * (ABNORMAL) Hemoglobin A1c (08/14/2023 6:14 PM SYSTEMS ADMINISTRATOR) [facility] Hgb A1C 11.5(H) 4.0 - 5.6 % JER Comment:Testing performed by : [address] [address] Estimated Average Glucose 283 mg/dL JER Comment: The ADA recommends reporting an estimated Average Glucose (eAG) with all Hemoglobin A1c results using the equation derived from a study of 507 normal and diabetic adults. Minority populations were underrepresented and children were not included. (Diabetes Care 31:0017-8724, 2008). The eAG is not equivalent to a fasting glucose. Testing performed by: [address] [address] Blood 08/14/2023 6:14 PM SYSTEMS ADMINISTRATOR 08/14/2023 6:15 PM SYSTEMS ADMINISTRATOR us Luis Fernando Barragan DO LAB BLOOD ORDERABLES Final Result [facility] [address] [facility] Department [place] [address] * POCT lipid panel (03/16/2018 1:50 PM [...] Indicated MDR gram neg/ESBL 05/16/2023 05/16/2023 Insurance [facility] Advance Directives For more information, please contact: [phone] * Full Code (Latest Code Status on File) Date Activated Date Inactivated Comments 08/14/2023 11:22 PM 08/16/2023 3:36 PM * Full Code Date Activated Date Inactivated Comments 02/16/2023 10:52 PM 02/22/2023 5:12 PM Care Teams Belt Notcher Relationship Specialty Start Date End Date No, Physician PCP - General 08/14/23 Juan Pablo Forbes DO Internal Medicine 03/17/18 [place] [address] [facility] [address] [place] [address] Consulting Physician Endocrinology 09/01/18
--- OUTSIDE RECORDS SUMMARY | 2025-01-03 17:25 | XMS_ITS | Clinical Summary ---
Author Organization [facility] Address [address] [place] [address] Care Team Providers Care Pipeline Operator Name Role Phone SharifamattyJuan Pablo baker DO Primary Care Provider Allergies Active Allergy Reactions Criticality Noted Date [...] 98 12/02/2017 4:53 PM CDT Temperature 36.7 C (98.1 F) 12/02/2017 11:53 AM CDT Respiratory Rate 18 12/02/2017 4:53 PM CDT Oxygen Saturation 98% 12/02/2017 4:53 PM CDT Inhaled Oxygen Concentration - - Weight 115 kg (253 lb 8.5 oz) 12/02/2017 11:53 A M CDT Height 165.1 cm (5' 5) 12/02/2017 11:53 AM CDT Body Mass Index [...] 19+ 3-dose series) 02/10/1988 Cervical Cancer Screening Joshua lakhani with HPV Testing (Age 30 to 64) Every 5 Years 1999 Cervical Cancer Screening with HPV 1999 Mammogram Screening 2009 Pneumococcal Vaccine: 50+ Ye ars (1 of 1 - PCV) 2019 Zoster Vaccines (1 of 2) 2019 COVID-19 Vaccine (1 - 2023-2 5 season) 2024 Meningococcal B Vaccine Aged Out No l onger eligible based on patient's age to complete this topic Meningococcal Vaccine Aged Out No angélica lloyd eligible based on patient's age to complete this topic RSV Immunizations Under 20 Months Aged Out No longer eligible based on patient's age to complete this topic Insurance [employer] Care Teams Pipeline Operator Relationship Specialty Start Date End Date Juan Pablo Forbes DO [address] [place] [address] PCP - General INTERNAL MEDICINE 12/02/17
--- OUTSIDE RECORDS SUMMARY | 2025-01-03 17:25 | XMS_ITS | Clinical Summary ---
Author Organization [facility] Address [address] [place] [address] Care Team Providers Care Cheese Supervisor Name Role Phone Unavailable Primary Care Provider Unavailabl e Social History Tobacco Use Types Packs/Day Years Used Date Smoking Tobacco: Never Assessed Comments Unknown Sex and Gender Information Value Date Recorded Sex Assigned at Not on file Legal Sex Female 9:24 AM TEAM CDL DRIVER Gender Identity Not on file Sexual [...]
--- OUTSIDE RECORDS SUMMARY | 2025-01-03 17:25 | XMS_ITS | Continuity of Care Document ---
Author Organization [facility] Address [address] [place] [address] [place] [address] Phone Care Team Providers Care Magazine Publisher Name Role Phone Gage Kaiser Unavailable Unavailable Procedures Procedure Date Eye Exam & Treatment Refraction Eye Exam, New Patient Advance Directives Directive Yes / No Effective Date File Name No Information Encounters Encounter Description Practice Location Reason(s) For Visit Diagnoses Date Provider Providers Copied on Encounter [facility], [address] [place] [address] [address], [place], [place], [id number], tel:[phone] [facility] No Information 8-201 0 Krishnasamy Gage. [address] [address], [place], [place], [facility] [place], [place]. tel:[phone] [facility], [address] [place] [address] [address], [place], [place], [id number], tel:[phone] [facility] No Information 0-200 9 Krishnasamy Gage. [address] [facility] [address], [place], [address], [place]. tel:[phone] Family History Family Member Type Diagnosis Age At Onset No Information Payers Payer name Insurance type Covered republican ID Authortaylora bill(s) [facility] [id number] Social History Type Description Quantity Date Captured [...]
--- OUTSIDE RECORDS SUMMARY | 2025-01-03 17:25 | XMS_ITS | Encounter Summary ---
Author Organization [facility] Address [address] [facility] [place] [address] Care Team Providers Care Trouble Clerk Name Role Phone Luis M Kirkpatrick MD Primary Care Provider [phone] Lucho Casas MD Primary Care Provider [phone] Luis M Kirkpatrick MD Unavailable [phone] Lucho Casas MD Unavailable [phone] Luis M Kirkpatrick MD Primary Care Provider [phone] Reason for Visit * Reason Onset Date Comments Medication Prior Auth Request 01/24/2019 Encounter Details Date Type Department Care Team (Late st Contact Info) Description 01/24/2019 Telephone [facility], Diabetes [facility] Metabolism [address] [place] [address] Timo Us MD [address] [place] [address] Medication Prior Auth Request Social History Tobacco Use Types Packs/Day Years Used Date Smoking Tobacco: Never Smokeless Tobacco: Never Alcohol Use Standard Drinks/Week Comments Yes 0 (1 standard drink = 0.6 oz pur e alcohol) Comments Unknown Sex and Gender Information Value Date Recorded Sex Assigned at Not on file Legal Sex Female 1:22 PM 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 [facility] documented in this encounter Plan of Treatment Not on file documented as of this encounter Visit Diagnoses Not on filedocumented in this encounter Care Teams Trouble Clerk Relationship Specialty Start Date End Date Luis M Kirkpatrick MD [address] [place] [address] PCP - General 10/07/18 04/15/21 Lucho Casas MD [address] [place] [id number] PCP - General 04/16/21 11/25/21 Luis M Kirkpatrick MD [address] [place] [address] PCP - General 11/26/21 Luis M Kirkpatrick MD [address] [place] [address] 04/16/21 Lucho Casas MD [address] [place] [address] 10/07/18 documented as of this encounter
--- OUTSIDE RECORDS SUMMARY | 2025-01-03 17:25 | XMS_ITS | Encounter Summary ---
Author Organization [facility] Address [address] [place] [address] Care Team Providers Care Senior Account Manager Name Role Phone Luis M Kirkpatrick MD Unavailable [phone] Lucho Casas MD Unavailable [phone] Luis M Kirkpatrick MD Primary Care Provider [phone] Encounter Details Date Type Department Care Team (Late st Contact Info) Description 05/13/2023 Telephone [facility] - Endocrinology [address] [place] [address], [facility] [place] [address] Arelis Argueta MD [address] [place] [address] [place] [id number] Social History Tobacco Use Types Packs/Day Years Used Date Smoking Tobacco: Some Days Cigarettes 0.5 30 Smokeless Tobacco: Former Alcohol Use Standard Drinks/Week Comments Yes 0 (1 standard drink = 0.6 oz pur e alcohol) socially Comments No Sex and Gender Information Value Date Recorded Sex Assigned at Not on file Legal Sex Female 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 Can you please let her know. If she is not using pump, she needs to be on Lispro and Lantus. I have put an order for Lantus to be taken 60 units at bedtime. She can continue Lispro but 20 units with each meals I have increased trulicity dose to 1.5 mg weekly rAelis Argueta MD Assistance Professor Department of Endocrinology, [...] Thanks so much. Patient Call Back number: [phone] documented in this encounter Plan of Treatment Not on file documented as of this encounter Visit Diagnoses Not on filedocumented in this encounter Care Teams Senior Account Manager Relationship Specialty Start Date End Date Luis M Kirkpatrick MD [address] [place] [address] PCP - General 11/26/21 Luis M Kirkpatrick MD [address] [place] [address] 04/16/21 Lucho Casas MD [address] [place] [address] 10/07/18 documented as of this encounter
--- OUTSIDE RECORDS SUMMARY | 2025-01-03 17:25 | XMS_ITS | Data Portability ---
Author Organization [place] [facility], Main Office Address [address] [place] [address] Care Team Providers Care Computational Scientist Name Role Phone DOMITILA DORMAN Primary Care Provider DOMITILA DORMAN Referring Provider [phone] Assessment Encounter Date Assessment Date Assessment LastModified [...] symptoms to completely resolve. She may use dtcq-xer-cvdviig anti-inflammatori es or Tylenol for pain control. She does have ibuprofen 600 mg but only takes it as needed. Recommend she take it on a more regular basis to help with her symptoms. If her symptoms not improve she can call otherwise we will plan on seeing her back as needed. 20 minutes was spent treatment patient more than half of this in ixkc-ur-byro conversation Not available 11/07/2022 12:52:13 12/22/2024 12/22/2024 [...] Appointments None recorded. Lab CBC 2024 025 RENNER [facility], [address], [place], [address], 5 09:47:15 C-reactive protein, quantitati ve, serum or plasma 2024 025 [email or web address] [facility], [address], [place], [address], 5 10:40:54 ESR (erythrocy te sedimentat ion rate), blood 2024 025 [email or web address] [facility], [address], [place], [address], 5 10:40:54 Referral None recorded. Procedures None recorded. Surgeries None recorded. Imaging CT, knee, w/o contrast - Please give patient disc 2024 025 [facility], [address], [place], [address], 5 17:35:18 XR, knee 2022 023 [email or web address] [facility], [address], [place], [address], 3 21:15:56 Medication Orders None recorded. Patient TargetsNo targets recorded. Patient InstructionsNo instructions recorded. Reason for Referral None Reported. Results Created Date Observation Date Name Description Value Unit Range Abnormal Flag Note LastModifiedBy Organization Detail LastModifiedTime 01/03/20 22 01/03/2022 CRYST ALS BODY FLUID crystal negati ve Not Available [facility] (Lab) [address] [place], [address], 01/03/2022 11:59:16 01/03/20 22 01/02/[address] W/DIF F-AUT O color light- yellow Not Available [facility] (Lab) [address] [place], [address], 01/02/2022 21:27:26 01/03/20 22 01/02/[address] W/DIF F-AUT O appearance hazy Not Available [facility] (Lab) [address] [place], [address], 01/02/2022 21:27:26 01/03/20 22 01/02/[address] W/DIF F-AUT O volume 3.0 mL Not Available [facility] (Lab) [address] [place], [address], 01/02/2022 21:27:26 01/03/20 22 01/02/[address] W/DIF F-AUT O WBC, body fluid 1103 /uL Not Available [facility] (Lab) [address] [place], [address], 01/02/2022 21:27:26 01/03/20 22 01/02/[address] W/DIF F-AUT O WBC body fluid-DNR 1.103 Not Available [facility] (Lab) [address] [place], [address], 01/02/2022 21:27:26 01/03/20 22 01/02/[address] W/DIF F-AUT O RBC, body fluid 2000 /uL Not Available [facility] (Lab) [address] [place], [address], 01/02/2022 21:27:26 01/03/20 22 01/02/[address] W/DIF F-AUT O RBC body fluid-DNR 0.002 Not Available [facility] (Lab) [address] [place], [address], 01/02/2022 21:27:26 01/03/20 22 01/02/[address] W/DIF F-AUT O % poly 5 % Not Available [facility] (Lab) [address] [place], [address], 01/02/2022 21:27:26 01/03/20 22 01/02/[address] W/DIF F-AUT O % mono 95 % Not Available [facility] (Lab) [address] [place], [address], 01/02/2022 21:27:26 01/03/20 22 01/02/[address] W/DIF F-AUT O source synovi al Not Available [facility] (Lab) [address] [place], [address], 01/02/2022 21:27:26 01/02/20 22 01/01/2022 XR, knee, 3 view No observ ation record ed. [email or web address] [id number] Not Available 09/17/2022 13:35:50 11/08/19 23 XR, knee No observ ation record ed. [facility] [address], [place], [address], 11/07/2022 12:48:21 12/23/19 25 12/19/2024 XR, knee, 1 or 2 view No observ ation record ed. [email or web address] Not Available 12/22 15:44:08 12/30/19 25 12/29/2024 US, biggle x, venou s, lower extre mity No observ ation record ed. [email or web address] [address], [place], [address], 12/30/2024 10:09:43 Result Notes None recorded. Problems Name Problem SNOMED Code Status Onset Date Resolution Date Notes Provider Name and Address Organization Details Recorded Time Bilateral osteoarthr itis of knees 8781431507671 07 Active 2021 Not Available [facility] 13:34:53 Pain of right knee joint 2930182473167 00 Active 2021 Not Available [facility] 3 13:34:53 Pain of bilateral knee joints 7762943026138 04 Active 2021 Not Available [facility] 3 13:34:53 Prosthetic joint mechanical failure 288970876 Active 2024 Arleth nicole, [place] [facility] 5 09:57:54 Pain of knee region 5717836889 Active 2024 MARKIE Morataya [address] [facility] [facility] [address], [place], [address] , [facility] 5 10:30:42 Localized swelling of right lower limb 1412098042854 9101 Active 2024 Arleth Rdz [facility], [place] [facility] 5 17:04:25 Problem Notes None recorded. Procedures Surgical History Date Name Laterality Status Provider Name and Address Organization Details Recorded Time Knee Surgery completed Not Available [facility] 09/17/2022 13:34:45 tonsilectomy/a denoids completed Not Available [facility] 09/17/2022 13:34:45 section completed Not Available [facility] 09/17/2022 13:34:45 Imaging Results None recorded. Procedure Notes None recorded. Medical Equipment None Reported. Allergies Allergen ID Allergen Name Allergen Category Reaction Reaction Severity Criticality Documentation Date Start Date Code Code System Note Provider Name and Address Organization Details Recorded Time 76740 lorcaseri n medicatio n Not available Not available Not available 09/17/2022 32303 01 RxNorm Not Available [facility] 3 13:35:47 31701 Bactrim medicatio n diarrhea vomiting Not available Not available Not available 09/17/2022 31617 9 RxNorm Not Available [facility] 3 13:35:47 37301 Celebrex medicatio n diarrhea vomiting Not available Not available Not available 12/22/2024 92000 7 RxNorm Verito Beto, CYLINDER HONER null, [place] - [facility] 5 09:35:05 55044 clindamyc in Not available hives Not available Not available 12/22/2024 2582 RxNorm Verito Beto, CYLINDER HONER null, [place] - [facility] 09:36:19 Medications Name Sig [...] Updated DateTime 11/07/2022 162.56 cm MALENA Valencia [employer] 11/07/2022 12:10:12 Date Recorded Body height Body mass index (BMI) Body weight Provider Name and Address Organization Details Last Updated DateTime 12/22/2024 165.1 cm 34.1 kg/m2 76862.44 g Verito Pérez CNA [employer] 12/22/2024 09:34:11 Date Recorded Body mass index (BMI) Body height Body weight Provider Name and Address Organization Details Last Updated DateTime 01/02/2022 43.1 kg/m2 162.56 cm 817446.68 g Not Available [facility] 09/17/2022 13:34:47 Date Recorded Body height Provider Name an d Address Organization Details Last Updated DateTime 01/16/2022 162.56 cm Not Available [facility] 13:34:47 Date Recorded Body height Provider Name an d Address Organization Details Last Updated DateTime 04/17/2022 162.56 cm Not Available [facility] 13:34:47 Social History Question Answer Notes LastModified by Organizat ion Details LastModified Time Tobacco Smoking Status Current Every Day Smoker Not Available [facility] 09/17/2022 13:34:41 How Much Tobacco Do You Smoke? 0.5 PPD Information not available 12/22/2024 How Many Years Have You Smoked Tobacco? 30 Information not available 12/22/2024 Sex: Unknown Functional Status Question Answer Note LastModified by Organizat ion Details LastModified Time What is your level of alcohol consumption? Occasional [id number] Information not available 09/17/2022 Mental Status [...] DISEASE N HEART ARRHYTHMIA Y INSOMNIA N HIGH CHOLESTEROL / HYPERLIPIDEMIA N RHEUMATOID ARTHRITIS N EDEMA N CHRONIC PAIN SYNDROME N CAROTID BLOCKAGE N BACK / NECK PROBLEMS N HAVE YOU BEEN HOSPITALIZED OR SEEN IN [facility] IN THE PAST YEAR ? N [...] SNOMED-CT Code Diagnosis ICD10 Code Diagnosis Note [id number] Fady Wilde MD [facility]_[address] [address] 01/02/2022 00:00:00 01/20/2022 16:25:29 [id number] Fady Wilde MD [facility]_[address] [address] 01/16/2022 00:00:00 01/20/2022 16:36:07 [id number] MARKIE Angulo [facility]_[address] [address] 04/17/2022 00:00:00 04/17/2022 15:51:11 [id number] Fady Wilde MD [facility] [address] [place] [address] 11/07/2022 12:00:50 11/07/2022 12:54:24 Pain of right knee joint 7950100815 63112 M25.067 [id number] Juan Pablo Mcclelland MD S[facility] [address] [place] [address] 12/22/2024 09:12:25 12/22/2024 10:35:37 Pain of right knee joint 3132137451 12025 M25.561 History of right total knee replacement 2210335368 460700 Z96.651 Pain of knee region 1003 360064 T84.84XA Z96.659 History of left total knee replacement 3052633347 931701 Z96.652 Health Concerns Section Related Observation LastModified by Organization Detai ls LastModified Time None Recorded Concern Status LastModified by Organization Details LastModified Time None Recorded Advance Directives Directive None Recorded Payers Insurance Date Sequence Insurance Name Policy Number Policy Skaggs Covered Member ID Skaggs Member ID Guarantor Name 12/22/2024 1 [facility] ON OR AFTER 01/17/21 (MEDICAID REPLACEMENT - HMO) Whit Segovia [id number] Whit Segovia Notes Date Note Type Note [...] the patient did have x-rays done at [facility] recently on December 19. She had [...] sweats otherwise feels well. MARKIE Morataya [address] [address], [place], [address], [place] [facility] 12/22/2024 10:40:51 OBGyn Episode No OBEpisode recorded.
--- OUTSIDE RECORDS SUMMARY | 2025-01-03 17:25 | XMS_ITS | Encounter Summary ---
Author Organization [facility] Health Address [address] [place] [address] Care Team Providers Care Chemical Librarian Name Role Phone Luis M Kirkpatrick MD Unavailable [phone] Lucho Casas MD Unavailable [phone] Luis M Kirkpatrick MD Primary Care Provider [phone] Encounter Details Date Type Department Care Team (Late st Contact Info) Description 04/23/2023 Telephone [facility] - Centralized Scheduling [address] [place] [id number] Arelis Argueta MD [address] [place] [address] Social History Tobacco Use Types Packs/Day Years Used Date Smoking Tobacco: Some Days Cigarettes 0.5 30 Smokeless Tobacco: Former Alcohol Use Standard Drinks/Week Comments Yes 0 (1 standard drink = 0.6 oz pur e alcohol) socially Comments No Sex and Gender Information Value Date Recorded Sex Assigned at Not on file Legal 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
--- OUTSIDE RECORDS SUMMARY | 2025-01-03 17:25 | XMS_ITS | Encounter Summary ---
Author Organization [facility] Health Address [address] [facility] [place] [address] Care Team Providers Care Master Dyer Name Role Phone Luis M Kirkpatrick MD Unavailable [phone] Lucho Casas MD Unavailable [phone] Luis M Kirkpatrick MD Primary Care Provider [phone] Encounter Details Date Type Department Care Team (Late st Contact Info) Description 05/29/2023 Telephone [facility] - Endocrinology [address] [place] [address], [place] [address] Sobia Meza MD [address] [place] [id number] Social History Tobacco Use Types Packs/Day Years Used Date Smoking Tobacco: Some Days Cigarettes 0.5 30 Smokeless Tobacco: Former Alcohol Use Standard Drinks/Week Comments Yes 0 (1 standard drink = 0.6 oz pur e alcohol) socially Comments No Sex and Gender Information Value Date Recorded Sex Assigned at Not on file Legal 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 Drug type:LANTUS PEN, ONE TOUCH ULTRA STRIPS, AND PEN NEEDLES BUT MAY NEED A SUBSTITUTE BRAND OF PEN NEEDLES DUE TO INSURANCE NOT COVERING. Pharmacy:[id number] - [address] [facility] [address] [facility] [address] Patient call back number: [phone] . PATIENT ALSO STATES HER BLOOD SUGAR IS STILL IN THE 300'S AND WOULD LIKE A CALL FROM THE OFFICE. ERCIAL RELATIONSHIP MANAGER documented in this encounter Plan of Treatment Not on file documented as of this encounter Visit Diagnoses Not on filedocumented in this encounter Care Teams Master Dyer Relationship Specialty Start Date End Date Luis M Kirkpatrick MD [address] [place] [address] PCP - General 11/26/21 Luis M Kirkpatrick MD [address] [place] [address] 04/16/21 Lucho Casas MD [address] [place] [address] 10/07/18 documented as of this encounter
--- OUTSIDE RECORDS SUMMARY | 2025-01-03 17:25 | XMS_ITS | Encounter Summary ---
Author Organization [facility] Health Address [address] [facility] [place] [address] Care Team Providers Care Blueprinting Machine Operator Name Role Phone Luis M Kirkpatrick MD Unavailable [phone] Lucho Casas MD Unavailable [phone] Luis M Kirkpatrick MD Primary Care Provider [phone] Encounter Details Date Type Department Care Team (Late st Contact Info) Description 05/27/2023 Telephone [facility] - Endocrinology [address] [place] [address], [facility] [place] [address] Arelis Argueta MD [address] [place] [address] [place] [address] Social History Tobacco Use Types Packs/Day Years Used Date Smoking Tobacco: Some Days Cigarettes 0.5 30 Smokeless Tobacco: Former Alcohol Use Standard Drinks/Week Comments Yes 0 (1 standard drink = 0.6 oz pur e alcohol) socially Comments No Sex and Gender Information Value Date Recorded Sex Assigned at Not on file Legal Sex Female 1:22 PM NUCLEAR PLANT 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 ADVISOR Gender Identity Not on file Sexual Orientation Not on file documented as of this encounter Miscellaneous Notes * Telephone Encounter - Arelis Argueta MD - 05/29/2023 12:08 PM CST Done EAR PLANT TECHNICAL ADVISOR * Telephone Encounter - Lia Grier LPN [...] doesn't want to go to the ER EAR PLANT TECHNICAL ADVISOR * Telephone Encounter - Tarsha Cedillo - [...] two doses remaining Patient Call Back number: [phone] EAR PLANT TECHNICAL ADVISOR documented in this encounter Plan of Treatment Not on file documented as of this encounter Visit Diagnoses Not on filedocumented in this encounter Care Teams Blueprinting Machine Operator Relationship Specialty Start Date End Date Luis M Kirkpatrick MD [address] [place] [address] PCP - General 11/26/21 Luis M Kirkpatrick MD [address] [place] [address] 04/16/21 Lucho Casas MD [address] [place] [address] 10/07/18 documented as of this encounter
--- OUTSIDE RECORDS SUMMARY | 2025-01-03 17:25 | XMS_ITS | Clinical Summary ---
Author Organization [facility] Address [address] [facility] [place] [address] Care Team Providers Care Director Of Perioperative Services Name Role Phone Luis M Kirkpatrick MD Unavailable [phone] Lucho Casas MD Unavailable [phone] Luis M Kirkpatrick MD Primary Care Provider [phone] Source Comments [facility],non-owned Affiliates and Associated Physician Practices is amultiple site organization consisting of ambulatory clinics and hospital sitesin [place], [place], [place]. This disclosure is being madepursuant to the Care Everywhere program and may not contain all information available regarding this patient. Last updated 18.[facility] Allergies Active Allergy Reactions Criticality Noted Date [...] on file Legal Sex Female 1:22 PM CARRIER LOADER Gender Identity Not on file Sexual Orientation Not on file Last Filed Vital Signs Vital Sign Reading Time Taken Comments Blood Pressure 146/85 09/15/2023 11:07 AM CARRIER LOADER Pulse 93 09/15/2023 11:07 AM CARRIER LOADER Temperature 36.5 C (97.7 F) 06/09/2023 10:42 AM CARRIER LOADER Respiratory Rate 18 06/09/2023 10:42 AM CARRIER LOADER Oxygen Saturation 96% 09/15/2023 11:07 AM CARRIER LOADER Inhaled Oxygen Concentration - - Weight 105.2 kg (232 lb) 09/15/2023 11:07 AM CARRIER LOADER Height 165.1 cm (5' 5) 09/15/2023 11:07 AM CARRIER LOADER Body Mass Index 38.61 09/15/2023 11:07 AM CARRIER LOADER Plan of Treatment Health Maintenance Due Date [...] CARE (AMB) [facility] Routine 06/09/2023 11:02 AM CARRIER LOADER Diabetes mellitus type 2, insulin dependent MICROALB/CREAT RATIO URINE RANDOM PANEL Routine 01/28/2022 1:09 PM CDT Diabetes mellitus type 2, insulin dependent COMPREHENSIVE METABOLIC PANEL Routine 01/28/2022 1:09 PM CDT Diabetes mellitus type 2, insulin dependent from Last 3 Months or Most Recently Relevant to Health Maintenance Results * HEMOGLOBIN A1C - POINT OF CARE (AMB) [facility] (06/09/2023 11:02 AM CARRIER LOADER) Hemoglobin A1c POCT 11.9 % [address] BLOOD SPECIMEN / Unknown 06/09/2023 11:02 AM CARRIER LOADER us Arelis Argueta MD LAB - POINT OF CARE ORDERABLES Final Result [address], [place] [address], [facility] [phone] * MICROALB/CREAT RATIO URINE RANDOM PANEL (01/28/2022 1:09 PM CDT) Albumin Random Urine 6.3 Not Established ug/mL 01/28/2022 1:54 PM CDT [facility] Creatinine Urine 54 Not Established mg/dL 01/28/2022 1:54 PM CDT [facility] Urine Albumin/Creati nine Ratio 12 <30 mg/g 01/28/2022 1:54 PM CDT [facility] Urine URINE SPECIMEN OBTAINED BY CLEAN CATCH PROCEDURE / Unknown Collection / Unknown 01/28/2022 1:09 PM CDT 01/28/2022 1:29 PM CDT us Emma Vieira MD LAB - URINE CHEMISTRY ORDERABLES Final Result [facility] [address] [place] [address], [facility] [phone] * (ABNORMAL) COMPREHENSIVE METABOLIC PANEL (01/28/2022 1:09 PM [facility]) BUN 9 7 - 26 mg/dL 01/28/2022 [...] - 23 01/28/2022 2:02 PM [facility] Osmolality Calculated 293 270 - 300 [...] CHEMISTRY ORDERABLES Final Result [facility] [address] [place] [address], [facility] [phone] from Last 3 Months or Most Recently Relevant to Health Maintenance Insurance [id number] [place] [phone] [place] [address] [facility] Care Teams Director Of Perioperative Services Relationship Specialty Start Date End Date Luis M Kirkpatrick MD [address] [facility] [address] [place] [address] PCP - General 11/26/21 Luis M Kirkpatrick MD [address] [place] [address] 04/16/21 Lucho Casas MD [address] [place] [address] 10/07/18
[2025-01-03 18:04] LABS: Anion Gap 12 mmol/L (4-12); Blood Urea Nitrogen 16 mg/dL (7-17); Calcium 9.5 mg/dL (8.4-10.2); Carbon Dioxide 24 mmol/L (22-30); Chloride 102 mmol/L (98-107); Estimated Glomerular Filt Rate > 60; Glucose 181 mg/dL (65-110); Potassium 3.8 mmol/L (3.4-5.0); Sodium 138 mmol/L (137-145)
== END 2025-01-03 17:21 | disposition home or self-care (01) ==
LOC: ANHLAB 17:23
PROVIDERS: PCP Nurse Practitioner Family; Visit Provider Anesthesiology
DX: E11.9 Type 2 diabetes mellitus without complications (principal); Z79.4 Long term (current) use of insulin
CPT/HCPCS: 36415; 80048

== ENCOUNTER 2025-01-06 00:13 | Day surgery (SDC) | payer OTHER, SELFPAY ==
[2025-01-03 13:32] VITALS: BMI 33.3
--- NOTE | 2025-01-03 13:33 | PC.NURSE ---
Report to the Outpatient Waiting Room, entrance under the green pavilion located off [facility], at time _0800_ on date _[id number]_. Planned Procedure Time: _1000_.? Time changes happen often and if your time is changed the preop area will call you the afternoon before. - You and your visitor will be asked to self-screen and do not enter if you have any COVID symptoms. Please call surgeon if you need to reschedule. - A mask is optional within the hospital at this time. Patients may have clear liquids (water, carbonated beverages, clear teas, apple juice) until 3 hours prior to surgery with a maximum of 20 ounces. - No food from midnight until time of surgery and no smoking, or chewing tobacco (or any form of nicotine). No chewing gum, candy or mints. Take only the following medications with a SIP of water on the morning of surgery: ____Fluoxetine, Gabapentin, Sotolol and Cephalexin. Ok for Lantus insulin night before but no short acting insulin morning of surgery. DO NOT STOP ANY OF YOUR OTHER PRESCRIPTION MEDICATIONS PRIOR TO SURGERY EXCEPT THE FOLLOWING Hold all vitamins and supplements for 3 days per anesthesiologist. Medications to discontinue per physician Date to take last dose Please no make-up, nail guatemalan, hairspray, perfume, deodorant, or body powder the day of surgery.? No jewelry (including any body piercings) or valuables the day of surgery, leave them at home.? Please take a shower or bath the night before, or the morning of, surgery with an antibacterial soap.? Wear comfortable, loose fitting clothing.? - Jewelry must be removed prior to entering the operating room.? Rings and piercings that are not removed may be cut off. - The hospital will not accept responsibility for valuables.? - Please leave all valuables, including medications, at home the day of surgery. If you are going home after surgery, a licensed hole digger truck driver must drive you home.? - NO public transportation without another adult if you receive anesthesia. - We recommend that an adult stay with you for 24 hours following discharge. - We also recommend that you do not drive, make important decision, drink alcoholic beverages, or take any drugs that were not prescribed by your health care provider for at least 24 hours after your discharge time. Follow any additional instructions given to you from your surgeon. Telephone instructions given to ___Carol__and asked if any additional questions and then verbalized understanding. Patient advised to call surgeon office or pre surgery nurse liaison [phone] if any additional questions.
[2025-01-06] VITALS (8 sets, daily range): BP systolic 124–160; BP diastolic 55–92; PULSE 88–97; RESP 10–18; TEMP 36.6–36.7; O2SAT 92–100; BMI 33.7
--- OUTSIDE RECORDS SUMMARY | 2025-01-06 00:17 | XMS_ITS | Encounter Summary ---
Author Organization [facility] Health Address [address] [place] [address] Care Team Providers Care Stock Sorter Name Role Phone Luis M Kirkpatrick MD Unavailable [phone] Lucho Casas MD Unavailable [phone] Luis M Kirkpatrick MD Primary Care Provider [phone] Encounter Details Date Type Department Care Team (Late st Contact Info) Description 05/27/2023 Telephone [facility] - Endocrinology [address] [place] [address], [facility] [place] [address] Arelis Argueta MD [address] [place] [address] [place] [address] Social History Tobacco Use Types Packs/Day Years Used Date Smoking Tobacco: Some Days Cigarettes 0.5 30 Smokeless Tobacco: Former Alcohol Use Standard Drinks/Week Comments Yes 0 (1 standard drink = 0.6 oz pur e alcohol) socially Comments No Sex and Gender Information Value Date Recorded Sex Assigned at Not on file Legal Sex Female 1:22 PM CARAMEL CANDY MAKER HELPER Gender Identity Not on file Sexual Orientation Not on file documented as of this encounter Miscellaneous Notes * Telephone Encounter - Arelis Argueta MD - 05/29/2023 12:08 PM CST Done MEL CANDY MAKER HELPER * Telephone Encounter - Lia Grier LPN [...] doesn't want to go to the ER MEL CANDY MAKER HELPER * Telephone Encounter - Tarsha Cedillo - [...] two doses remaining Patient Call Back number: [phone] MEL CANDY MAKER HELPER documented in this encounter Plan of Treatment Not on file documented as of this encounter Visit Diagnoses Not on filedocumented in this encounter Care Teams Stock Sorter Relationship Specialty Start Date End Date Luis M Kirkpatrick MD [address] [place] [address] PCP - General 11/26/21 Luis M Kirkpatrick MD [address] [place] [address] 04/16/21 Lucho Casas MD [address] [place] [address] 10/07/18 documented as of this encounter
--- OUTSIDE RECORDS SUMMARY | 2025-01-06 00:17 | XMS_ITS | Encounter Summary ---
Author Organization [facility] Address [address] [place] [address] Care Team Providers Care Strategic Account Director Name Role Phone Luis M Kirkpatrick MD Unavailable [phone] Lucho Casas MD Unavailable [phone] Luis M Kirkpatrick MD Primary Care Provider [phone] Reason for Visit * Reason Onset Date Comments MEDICATION REFILL 08/04/2022 Encounter Details Date Type Department Care Team (Late st Contact Info) Description 08/04/2022 Refill [facility] [address] [place] [phone] Db Sue MD [address] [place] [address] MEDICATION REFILL Social History Tobacco Use Types Packs/Day Years Used Date Smoking Tobacco: Some Days Cigarettes 0.5 30 Smokeless Tobacco: Former Alcohol Use Standard Drinks/Week Comments Yes 0 (1 standard drink = 0.6 oz pur e alcohol) socially Comments No Sex and Gender Information Value Date Recorded Sex Assigned at Not on file Legal Sex Female 1:22 PM CORPORATE DIRECTOR Gender Identity Not on file Sexual Orientation Not on file documented as of this encounter Miscellaneous Notes * Telephone Encounter - Silva Belle LPN - 08/04/2022 9:59 AM CST ERROR ORATE DIRECTOR documented in this encounter Plan of Treatment Not on file documented as of this encounter Visit Diagnoses Diagnosis Diabetes mellitus type 2, insulin dependent (HCC)- Primary Type II or unspecified type diabetes mellitus without mention of complication, not stated as uncontrolled documented in this encounter Care Teams Strategic Account Director Relationship Specialty Start Date End Date Luis M Kirkpatrick MD [address] [place] [address] PCP - General 11/26/21 Luis M Kirkpatrick MD [address] [place] [address] 04/16/21 Lucho Casas MD [address] [place] [address] 10/07/18 documented as of this encounter
--- OUTSIDE RECORDS SUMMARY | 2025-01-06 00:17 | XMS_ITS | Referral Summary ---
Author Organization [facility] [address] [place] [address] Care Team Providers Care Electrical Logging Engineer Name Role Phone Juan Pablo Forbes DO Unavailable [phone] Connor Barton MD Unavailable [phone] No, Physician Primary Care Provider [phone] Allergies Active Allergy Reactions Criticality Noted Date Comments Bacitracin Vomiting Low 03/16/2018 Sulfamethoxazole-Trimethoprim Diarrhea,Vomiting Low 05/13/2022 Celecoxib Nausea & Vomiting Low 03/16/2018 Clindamycin Hives Medium 03/16/2018 Propoxyphene-Acetaminophen Nausea & Vomiting Low Medications blood glucose diagnostic stripIndication s:Type 2 diabetes mellitus with hyperglycemia, with long-term current use of insulin ([facility]) accu-check guide test strips test blood sugars five times every day dx:E11.65 insulin dependent 150 each 3 8 Active FLUoxetine (PROzac) 20 mg capsule Take 1 capsule (20 mg total) by mouth 2 (two) times a day 0 8 Active metFORMIN (GLUCOPHAGE) 1,000 mg tabletIndicatio ns:Type 2 diabetes mellitus with hyperglycemia, with long-term current use of insulin ([facility]) TAKE 1 TABLET(1000 MG) BY MOUTH [...] 03/17/2018 Assessment & Plan (08/20/2018 4:20 PM EMAIL PRODUCER): Diabetes is improving with treatment. Reviewed insulin [...] . Assessment & Plan (06/21/2018 7:03 AM EMAIL PRODUCER): Diabetes is improving with treatment. Reviewed insulin [...] . Assessment & Plan (05/23/2018 8:52 PM EMAIL PRODUCER): Diabetes is improving with treatment. A1c - [...] type 2, - patho physiology, short and alf complications of uncontrolled DM, diet and exercise [...] 03/17/2018 Assessment & Plan (08/20/2018 4:21 PM EMAIL PRODUCER): Hypertension is chronic, well controlled Continue current treatment regimen. Dietary sodium restriction. Weight loss. Regular aerobic exercise. Continue current medications. Blood pressure will be reassessed at the next regular appointment. Assessment & Plan (06/21/2018 7:04 AM EMAIL PRODUCER): Hypertension is chronic, well controlled Continue current [...] 03/17/2018 Assessment & Plan (08/20/2018 4:21 PM EMAIL PRODUCER): Pt. On statin therapy Nutrition counseling provided Advised to increase aerobic exercise Assessment & Plan (06/21/2018 7:04 AM EMAIL PRODUCER): Pt. On statin therapy Nutrition counseling provided Advised to increase aerobic exercise Assessment & Plan (03/17/2018 7:44 AM CDT): Pt. On statin therapy Nutrition counseling provided Advised to increase aerobic exercise Insulin pump status 03/17/2018 Assessment & Plan (08/20/2018 4:21 PM EMAIL PRODUCER): Have long acting , basal insulin ( [...] 02/18 Assessment & Plan (08/20/2018 4:21 PM EMAIL PRODUCER): Obesity is improving with lifestyle modifications. Discussed [...] discussed. Assessment & Plan (06/21/2018 7:04 AM EMAIL PRODUCER): Obesity is improving with lifestyle habits Discussed [...] often do you attend chur ch or christian services? 1 to 4 times per year 02/17/2023 Do you belong to any clubs o r organizations such as pentecostal groups, unions, fraternal or athletic groups, or [...] on file Legal Sex Female 6:30 AM EMAIL PRODUCER Gender Identity Not on file Sexual Orientation Not on file Last Filed Vital Signs Vital Sign Reading Time Taken Comments Blood Pressure 153/90 08/16/2023 7:30 AM EMAIL PRODUCER Pulse 87 08/16/2023 7:30 AM EMAIL PRODUCER Temperature 36.8 C (98.2 F) 08/16/2023 7:30 AM EMAIL PRODUCER Respiratory Rate 18 08/16/2023 7:30 AM EMAIL PRODUCER Oxygen Saturation 99% 08/16/2023 7:30 AM EMAIL PRODUCER Inhaled Oxygen Concentration - - Weight 100.7 kg (222 lb 0.1 oz) 024 11:25 PM EMAIL PRODUCER Height 165.1 cm (5' 5) 08/14/2023 11:2 5 PM EMAIL PRODUCER Body Mass Index 36.94 08/14/2023 11:25 PM EMAIL PRODUCER Plan of Treatment Not on file Procedures Procedure Name Priority Date/Time Associated Diagnosis Comments EGFR Routine 08/15/2023 4:36 AM EMAIL PRODUCER HEMOGLOBIN A1C STAT 08/14/2023 6:14 PM EMAIL PRODUCER POCT LIPID PANEL Routine 03/16/2018 1:50 PM CDT Type 2 diabetes mellitus with hyperglycemia, with long-term current use of insulin (HCC) from Last 3 Months or Most Recently Relevant to Health Maintenance Results * eGFR (08/15/2023 4:36 AM EMAIL PRODUCER) eGFR 118 mL/min/1. 73 m2 [facility] [place] [...] last reviewed 2021. Blood 08/15/2023 4:36 AM EMAIL PRODUCER 08/15/2023 4:36 AM EMAIL PRODUCER Drew Early MD LAB BLOOD ORDERABLES Final R esult [facility] [address] [facility] Department [place] [address] * (ABNORMAL) Hemoglobin A1c (08/14/2023 6:14 PM EMAIL PRODUCER) [facility] Hgb A1C 11.5(H) 4.0 - 5.6 % JER Comment:Testing performed by : [address] [address] Estimated Average Glucose 283 mg/dL JER Comment: The ADA recommends reporting an estimated Average Glucose (eAG) with all Hemoglobin A1c results using the equation derived from a study of 507 normal and diabetic adults. Minority populations were underrepresented and children were not included. (Diabetes Care 31:0494-2184, 2008). The eAG is not equivalent to a fasting glucose. Testing performed by: [address] [address] Blood 08/14/2023 6:14 PM EMAIL PRODUCER 08/14/2023 6:15 PM EMAIL PRODUCER us Luis Fernando Barragan DO LAB BLOOD ORDERABLES Final Result [facility] [address] [facility] Department [place] [address] * POCT lipid panel (03/16/2018 1:50 PM [...] Indicated MDR gram neg/ESBL 05/16/2023 05/16/2023 Insurance [facility] Advance Directives For more information, please contact: [phone] * Full Code (Latest Code Status on File) Date Activated Date Inactivated Comments 08/14/2023 11:22 PM 08/16/2023 3:36 PM * Full Code Date Activated Date Inactivated Comments 02/16/2023 10:52 PM 02/22/2023 5:12 PM Care Teams Electrical Logging Engineer Relationship Specialty Start Date End Date No, Physician PCP - General 08/14/23 Juan Pablo Forbes DO Internal Medicine 03/17/18 [place] [address] [facility] [address] [place] [address] Consulting Physician Endocrinology 09/01/18
--- OUTSIDE RECORDS SUMMARY | 2025-01-06 00:17 | XMS_ITS | Clinical Summary ---
Author Organization [facility] Physician Office Building [address] [place] [address] Care Team Providers Care Sterile Products Processor Name Role Phone Juan Pablo Forbes DO Unavailable [phone] Connor Barton MD Unavailable [phone] No, Physician Primary Care Provider [phone] Allergies Active Allergy Reactions Criticality Noted Date Comments Bacitracin Vomiting Low 03/16/2018 Sulfamethoxazole-Trimethoprim Diarrhea,Vomiting Low 05/13/2022 Celecoxib Nausea & Vomiting Low 03/16/2018 Clindamycin Hives Medium 03/16/2018 Propoxyphene-Acetaminophen Nausea & Vomiting Low Medications blood glucose diagnostic stripIndication s:Type 2 diabetes mellitus with hyperglycemia, with long-term current use of insulin ([facility]) accu-check guide test strips test blood sugars five times every day dx:E11.65 insulin dependent 150 each 3 8 Active FLUoxetine (PROzac) 20 mg capsule Take 1 capsule (20 mg total) by mouth 2 (two) times a day 0 8 Active metFORMIN (GLUCOPHAGE) 1,000 mg tabletIndicatio ns:Type 2 diabetes mellitus with hyperglycemia, with long-term current use of insulin ([facility]) TAKE 1 TABLET(1000 MG) BY MOUTH [...] 03/17/2018 Assessment & Plan (08/20/2018 4:20 PM RESEARCH LAB ASSISTANT): Diabetes is improving with treatment. Reviewed [...] . Assessment & Plan (06/21/2018 7:03 AM RESEARCH LAB ASSISTANT): Diabetes is improving with treatment. Reviewed [...] . Assessment & Plan (05/23/2018 8:52 PM RESEARCH LAB ASSISTANT): Diabetes is improving with treatment. A1c [...] 03/17/2018 Assessment & Plan (08/20/2018 4:21 PM RESEARCH LAB ASSISTANT): Hypertension is chronic, well controlled Continue current treatment regimen. Dietary sodium restriction. Weight loss. Regular aerobic exercise. Continue current medications. Blood pressure will be reassessed at the next regular appointment. Assessment & Plan (06/21/2018 7:04 AM RESEARCH LAB ASSISTANT): Hypertension is chronic, well controlled Continue [...] 03/17/2018 Assessment & Plan (08/20/2018 4:21 PM RESEARCH LAB ASSISTANT): Pt. On statin therapy Nutrition counseling provided Advised to increase aerobic exercise Assessment & Plan (06/21/2018 7:04 AM RESEARCH LAB ASSISTANT): Pt. On statin therapy Nutrition counseling provided Advised to increase aerobic exercise Assessment & Plan (03/17/2018 7:44 AM CDT): Pt. On statin therapy Nutrition counseling provided Advised to increase aerobic exercise Insulin pump status 03/17/2018 Assessment & Plan (08/20/2018 4:21 PM RESEARCH LAB ASSISTANT): Have long acting , basal insulin [...] 02/18 Assessment & Plan (08/20/2018 4:21 PM RESEARCH LAB ASSISTANT): Obesity is improving with lifestyle modifications. [...] discussed. Assessment & Plan (06/21/2018 7:04 AM RESEARCH LAB ASSISTANT): Obesity is improving with lifestyle habits [...] often do you attend chur ch or lutheran services? 1 to 4 times per year 02/17/2023 Do you belong to any clubs o r organizations such as orthodox groups, unions, fraternal or athletic groups, or [...] place to sleep or slept in a jail (including now)? No 02/17/2023 Personal Safety Answer Date Recorded Have you ever been in or are you currently in a harmful physical or emotional relationship or is someone making you feel afraid or unsafe? Denies 08/15/2023 Comments No Sex and Gender Information Value Date Recorded Sex Assigned at Not on file Legal Sex Female 6:30 AM RESEARCH LAB ASSISTANT Gender Identity Not on file Sexual Orientation Not on file Obstetrics History Last Filed Vital Signs Vital Sign Reading Time Taken Comments Blood Pressure 153/90 08/16/2023 7:30 AM RESEARCH LAB ASSISTANT Pulse 87 08/16/2023 7:30 AM RESEARCH LAB ASSISTANT Temperature 36.8 C (98.2 F) 08/16/2023 7:30 AM RESEARCH LAB ASSISTANT Respiratory Rate 18 08/16/2023 7:30 AM RESEARCH LAB ASSISTANT Oxygen Saturation 99% 08/16/2023 7:30 AM RESEARCH LAB ASSISTANT Inhaled Oxygen Concentration - - Weight 100.7 kg (222 lb 0.1 oz) 024 11:25 PM RESEARCH LAB ASSISTANT Height 165.1 cm (5' 5) 08/14/2023 11:2 5 PM RESEARCH LAB ASSISTANT Body Mass Index 36.94 08/14/2023 11:25 PM RESEARCH LAB ASSISTANT Plan of Treatment Health Maintenance Due Date [...] Diagnosis Comments EGFR Routine 08/15/2023 4:36 AM RESEARCH LAB ASSISTANT HEMOGLOBIN A1C STAT 08/14/2023 6:14 PM RESEARCH LAB ASSISTANT POCT LIPID PANEL Routine 03/16/2018 1:50 PM CDT Type 2 diabetes mellitus with hyperglycemia, with long-term current use of insulin (HCC) from Last 3 Months or Most Recently Relevant to Health Maintenance Results * eGFR (08/15/2023 4:36 AM RESEARCH LAB ASSISTANT) eGFR 118 mL/min/1. 73 m2 [facility] [...] last reviewed 2021. Blood 08/15/2023 4:36 AM RESEARCH LAB ASSISTANT 08/15/2023 4:36 AM RESEARCH LAB ASSISTANT Drew Early MD LAB BLOOD ORDERABLES Final R esult Performing Organization Address City/[facility] Co de Phone Number J[facility] [address] [facility] [place] [address] * (ABNORMAL) Hemoglobin A1c (08/14/2023 6:14 PM RESEARCH LAB ASSISTANT) Hgb A1C 11.5(H) 4.0 - 5.6 % [facility] Comment:Testing performed by : [address] [address] Estimated Average Glucose 283 mg/dL [facility] Comment: The ADA recommends reporting an estimated Average Glucose (eAG) with all Hemoglobin A1c results using the equation derived from a study of 507 normal and diabetic adults. Minority populations were underrepresented and children were not included. (Diabetes Care 31:1495-2865, 2008). The eAG is not equivalent to a fasting glucose. Testing performed by: [address] [address] Blood 08/14/2023 6:14 PM RESEARCH LAB ASSISTANT 08/14/2023 6:15 PM RESEARCH LAB ASSISTANT Luis Fernando Barragan DO LAB BLOOD ORDERABLES Final Result Performing Organization Address [facility] Co de Phone Number [facility] [place] [address] [facility] [place] [address] * POCT lipid panel (03/16/2018 1:50 PM [...] Advance Directives For more information, please contact: [phone] * Full Code (Latest Code Status on File) Date Activated Date Inactivated Comments 08/14/2023 11:22 PM 08/16/2023 3:36 PM * Full Code Date Activated Date Inactivated Comments 02/16/2023 10:52 PM 02/22/2023 5:12 PM Care Teams Sterile Products Processor Relationship Specialty Start Date End Date No, Physician PCP - General 08/14/23 Juan Pablo Forbes DO Internal Medicine 03/17/18 [place] [address] [address] [facility] [address] [place] [address] Consulting Physician Endocrinology 09/01/18
--- OUTSIDE RECORDS SUMMARY | 2025-01-06 00:17 | XMS_ITS | Encounter Summary ---
Author Organization [facility] Address [address] [facility] [place] [address] Care Team Providers Care Lead Quality Technician Name Role Phone Luis M Kirkpatrick MD Unavailable [phone] Lucho Casas MD Unavailable [phone] Luis M Kirkpatrick MD Primary Care Provider [phone] Encounter Details Date Type Department Care Team (Late st Contact Info) Description 04/23/2023 Telephone [facility] - Centralized Scheduling [address] [place] [phone] Arelis Argueta MD [address] [place] [id number] Social History Tobacco Use Types Packs/Day Years Used Date Smoking Tobacco: Some Days Cigarettes 0.5 30 Smokeless Tobacco: Former Alcohol Use Standard Drinks/Week Comments Yes 0 (1 standard drink = 0.6 oz pur e alcohol) socially Comments No Sex and Gender Information Value Date Recorded Sex Assigned at Not on file Legal Sex Female 1:22 PM MICROBIOLOGY SUPERVISOR Gender Identity Not on file Sexual Orientation Not on file documented as of this encounter Plan of Treatment Not on file documented as of this encounter Visit Diagnoses Not on filedocumented in this encounter Care Teams Lead Quality Technician Relationship Specialty Start Date End Date Luis M Kirkpatrick MD [address] [place], [place] [id number] PCP - General 11/26/21 Luis M Kirkpatrick MD [address] [place], [place] [id number] 04/16/21 Lucho Casas MD [address] [place] [address] 10/07/18 documented as of this encounter
--- OUTSIDE RECORDS SUMMARY | 2025-01-06 00:17 | XMS_ITS | Encounter Summary ---
Author Organization [facility] Health Address [address] [facility] [place] [address] Care Team Providers Care Carton Making Machine Operator Name Role Phone Luis M Kirkpatrick MD Primary Care Provider [phone] Lucho Casas MD Primary Care Provider [phone] Luis M Kirkpatrick MD Unavailable [phone] Lucho Casas MD Unavailable [phone] Luis M Kirkpatrick MD Primary Care Provider [phone] Reason for Visit * Reason Onset Date Comments Medication Prior Auth Request 01/24/2019 Encounter Details Date Type Department Care Team (Late st Contact Info) Description 01/24/2019 Telephone [facility], Diabetes and Metabolism [address] [place] [address] Timo Us MD [address] [place] [address] Medication Prior Auth Request Social History Tobacco Use Types Packs/Day Years Used Date Smoking Tobacco: Never Smokeless Tobacco: Never Alcohol Use Standard Drinks/Week Comments Yes 0 (1 standard drink = 0.6 oz pur e alcohol) Comments Unknown Sex and Gender Information Value Date Recorded Sex Assigned at Not on file Legal Sex Female 1:22 PM PULLEY MAN Gender Identity Not on file Sexual Orientation [...] a PA for this Rx as well. [facility] documented in this encounter Plan of Treatment Not on file documented as of this encounter Visit Diagnoses Not on filedocumented in this encounter Care Teams Carton Making Machine Operator Relationship Specialty Start Date End Date Luis M Kirkpatrick MD [address] [place] [address] PCP - General 10/07/18 04/15/21 Lucho Casas MD [address] [place] [address] PCP - General 04/16/21 11/25/21 Luis M Kirkpatrick MD [address] [place] [address] PCP - General 11/26/21 Luis M Kirkpatrick MD [address] [place] [address] 04/16/21 Lucho Casas MD [address] [place] [address] 10/07/18 documented as of this encounter
--- OUTSIDE RECORDS SUMMARY | 2025-01-06 00:17 | XMS_ITS | Continuity of Care Document ---
Author Organization [facility] Address [address] [place] [address] [place] [address] Phone Care Team Providers Care Golf Club Head Former Name Role Phone Gage Kaiser Unavailable Unavailable Procedures Procedure Date Eye Exam & Treatment Refraction Eye Exam, New Patient Advance Directives Directive Yes / No Effective Date File Name No Information Encounters Encounter Description Practice Location Reason(s) For Visit Diagnoses Date Provider Providers Copied on Encounter [facility], [address] [place] [address] [address], [place], [place], [id number], tel:[phone] [facility] No Information 8-201 0 Krishnasamy Gage. [address] [address], [place], [place], [facility], [place]. tel:[phone] [facility], [address] [place] [address] [address], [place], [place], [id number], tel:[phone] [facility] No Information 0-200 9 Krishnasamy Gage. [address] [facility] [address], [place], [address], [place]. tel:[phone] Family History Family Member Type Diagnosis Age At Onset No Information Payers Payer name Insurance type Covered democrat ID Authortaylora bill(s) Medicaid [facility] [id number] Social History Type Description Quantity Date Captured [...]
--- OUTSIDE RECORDS SUMMARY | 2025-01-06 00:17 | XMS_ITS | Encounter Summary ---
Author Organization [facility] Address [address] [facility] [place] [address] Care Team Providers Care Bed Spring Maker Name Role Phone Luis M Kirkpatrick MD Unavailable [phone] Lucho Casas MD Unavailable [phone] Luis M Kirkpatrick MD Primary Care Provider [phone] Encounter Details Date Type Department Care Team (Late st Contact Info) Description 05/27/2023 Telephone [facility] - Centralized Scheduling [address] [place] [phone] Arelis Argueta MD [facility] [place] [phone] Social History Tobacco Use Types Packs/Day Years Used Date Smoking Tobacco: Some Days Cigarettes 0.5 30 Smokeless Tobacco: Former Alcohol Use Standard Drinks/Week Comments Yes 0 (1 standard drink = 0.6 oz pur e alcohol) socially Comments No Sex and Gender Information Value Date Recorded Sex Assigned at Not on file Legal Sex Female 1:22 PM IOS SOFTWARE ENGINEER Gender Identity Not on file Sexual Orientation Not on file documented as of this encounter Miscellaneous Notes * Telephone Encounter - Romain Ridley MA - 05/27/2023 11:44 AM CST Called patient. To let her know that Dr. Berry sent her prescriptions into the pharmacy. Patient did not answer. Left voice mail to call office back. SOFTWARE ENGINEER * Telephone Encounter - Oscar Sainilucía - 05/27/2023 9:15 AM CST Patient called in requesting a Med refill. Drug type: dulaglutide (Trulicity) 1.5 MG/0.5ML injection, insulin pen needle (B-D UF III MINI PEN NEEDLES) 31G X 5 MM needle and one touch ultra test strips. Pharmacy:[facility] [address] [place] [address] Patient call back number: [phone]. States thatshe is running out of medication. Is frustrated because she was told that Dr. Meza would be fillingher meds because Dr. Quintana is certified through [place]. Reached out to SCOTT Hoyos regarding this concern and was advised that Dr. Meza isn't here today. Ms. Segovia would like a call back to discuss further steps. Callback number listed above. . SOFTWARE ENGINEER documented in this encounter Plan of Treatment Not on file documented as of this encounter Visit Diagnoses Not on filedocumented in this encounter Care Teams Bed Spring Maker Relationship Specialty Start Date End Date Luis M Kirkpatrick MD [address] [place] [address] PCP - General 11/26/21 Luis M Kirkpatrick MD [address] [place] [address] 04/16/21 Lucho Casas MD [address] [place] [address] 10/07/18 documented as of this encounter
--- OUTSIDE RECORDS SUMMARY | 2025-01-06 00:17 | XMS_ITS | Encounter Summary ---
Author Organization [facility] Health Address [address] [place] [address] Care Team Providers Care Fork Truck Driver Name Role Phone Luis M Kirkpatrick MD Unavailable [phone] Lucho Casas MD Unavailable [phone] Luis M Kirkpatrick MD Primary Care Provider [phone] Encounter Details Date Type Department Care Team (Late st Contact Info) Description 04/14/2023 Telephone [facility] - Centralized Scheduling [address] [place] [id number] Arelis Argueta MD [address] [place] [address] Social History Tobacco Use Types Packs/Day Years Used Date Smoking Tobacco: Some Days Cigarettes 0.5 30 Smokeless Tobacco: Former Alcohol Use Standard Drinks/Week Comments Yes 0 (1 standard drink = 0.6 oz pur e alcohol) socially Comments No Sex and Gender Information Value Date Recorded Sex Assigned at Not on file Legal Sex Female 1:22 PM INTERIM CONTROLLER Gender Identity Not on file Sexual Orientation Not on file documented as of this encounter Plan of Treatment Not on file documented as of this encounter Visit Diagnoses Not on filedocumented in this encounter Care Teams Fork Truck Driver Relationship Specialty Start Date End Date Luis M Kirkpatrick MD [address] [place], [place] [id number] PCP - General 11/26/21 Luis M Kirkpatrick MD [address] [place], [place] [address] 04/16/21 Lucho Casas MD [address] [place] [address] 10/07/18 documented as of this encounter
--- OUTSIDE RECORDS SUMMARY | 2025-01-06 00:17 | XMS_ITS | Data Portability ---
Author Organization [place] [facility] [employer], Main Office Address [address] [place] [address] Care Team Providers Care Director Of Personnel Name Role Phone DOMITILA DORMAN Primary Care [...] symptoms to completely resolve. She may use xeru-vze-sgfxrjf anti-inflammatori es or Tylenol for pain control. She does have ibuprofen 600 mg but only takes it as needed. Recommend she take it on a more regular basis to help with her symptoms. If her symptoms not improve she can call otherwise we will plan on seeing her back as needed. 20 minutes was spent treatment patient more than half of this in naja-nk-pwkg conversation Not available 11/07/2022 12:52:13 12/22/2024 12/22/2024 [...] Appointments None recorded. Lab CBC 2024 025 LYNCO [facility], [address], [place], [address], 5 09:47:15 C-reactive protein, quantitati ve, serum or plasma 2024 025 [email or web address] [facility], [address], [place], [address], 5 08:22:26 ESR (erythrocy te sedimentat ion rate), blood 2024 025 [email or web address] [facility], [address], [place], [address], 5 08:22:39 Referral None recorded. Procedures None recorded. Surgeries None recorded. Imaging CT, knee, w/o contrast - Please give patient disc 2024 025 [facility] [place] [facility], [address], [place], [address], 5 17:35:18 XR, knee 2022 023 [email or web address] [facility], [address] [facility] [address], [place], [address], 3 21:15:56 Medication Orders None recorded. Patient TargetsNo targets recorded. Patient InstructionsNo instructions recorded. Reason for Referral None Reported. Results Created Date Observation Date Name Description Value Unit Range Abnormal Flag Note LastModifiedBy Organization Detail LastModifiedTime 01/03/20 22 01/03/2022 CRYST ALS BODY FLUID crystal negati ve Not Available [facility] (Lab) [address] [place], [address], 01/03/2022 11:59:16 01/03/20 22 01/02/[address] W/DIF F-AUT O color light- yellow Not Available [facility] (Lab) [address] [place], [address], 01/02/2022 21:27:26 01/03/20 22 01/02/[address] W/DIF F-AUT O appearance hazy Not Available [facility] (Lab) [address] [place], [address], 01/02/2022 21:27:26 01/03/20 22 01/02/[address] W/DIF F-AUT O volume 3.0 mL Not Available [facility] (Lab) [address] [place], [address], 01/02/2022 21:27:26 01/03/20 22 01/02/[address] W/DIF F-AUT O WBC, body fluid 1103 /uL Not Available [facility] (Lab) [address] [place], [address], 01/02/2022 21:27:26 01/03/20 22 01/02/[address] W/DIF F-AUT O WBC body fluid-DNR 1.103 Not Available [facility] (Lab) [address] [place], [address], 01/02/2022 21:27:26 01/03/20 22 01/02/[address] W/DIF F-AUT O RBC, body fluid 2000 /uL Not Available [facility] (Lab) [address] [place], [address], 01/02/2022 21:27:26 01/03/20 22 01/02/[address] W/DIF F-AUT O RBC body fluid-DNR 0.002 Not Available [facility] (Lab) [address] [place], [address], 01/02/2022 21:27:26 01/03/20 22 01/02/[address] W/DIF F-AUT O % poly 5 % Not Available [facility] (Lab) [address] [place], [address], 01/02/2022 21:27:26 01/03/20 22 01/02/[address] W/DIF F-AUT O % mono 95 % Not Available [facility] (Lab) [address] [place], [address], 01/02/2022 21:27:26 01/03/20 22 01/02/[address] W/DIF F-AUT O source synovi al Not Available [facility] (Lab) [address] [place], [address], 01/02/2022 21:27:26 01/02/20 22 01/01/2022 XR, knee, 3 view No observ ation record ed. [id number] Not Available 09/17/2022 13:35:50 11/08/19 23 XR, knee No observ ation record ed. [facility] [address] [facility] [address], [place], [address], 11/07/2022 12:48:21 12/23/19 25 12/19/2024 XR, knee, 1 or 2 view No observ ation record ed. [email or web address] Not Available 12/22 15:44:08 12/30/19 25 12/29/2024 US, tigre x, venou s, lower extre mity No observ ation record ed. [facility] [address] [facility] [address], [place], [address], 12/30/2024 10:09:43 Result Notes None recorded. Problems Name Problem SNOMED Code Status Onset Date Resolution Date Notes Provider Name and Address Organization Details Recorded Time Bilateral osteoarthr itis of knees 6602551788823 07 Active 2021 Not Available [facility] 13:34:53 Pain of right knee joint 0567831453019 00 Active 2021 Not Available [facility] 3 13:34:53 Pain of bilateral knee joints 4236606331030 04 Active 2021 Not Available [facility] 3 13:34:53 Prosthetic joint mechanical failure 700089348 Active 2024 Arleth nicole, [place] [facility] 5 09:57:54 Pain of knee region 3140971657 Active [address] [facility], [facility] [address], [place], [address] , [facility] - [facility] 5 10:30:42 Localized swelling of right lower limb 7689802798057 9101 Active 2024 Arleth nicole, [place] - [facility] 5 17:04:25 Problem Notes None recorded. Procedures Surgical History Date Name Laterality Status Provider Name and Address Organization Details Recorded Time Knee Surgery completed Not Available [facility] 09/17/2022 13:34:45 tonsilectomy/a denoids completed Not Available [facility] 09/17/2022 13:34:45 section completed Not Available [facility] 09/17/2022 13:34:45 Imaging Results None recorded. Procedure Notes None recorded. Medical Equipment None Reported. Allergies Allergen ID Allergen Name Allergen Category Reaction Reaction Severity Criticality Documentation Date Start Date Code Code System Note Provider Name and Address Organization Details Recorded Time 08876 lorcaseri n medicatio n Not available Not available Not available 09/17/2022 74030 01 RxNorm Not Available [facility] 3 13:35:47 81559 Bactrim medicatio n diarrhea vomiting Not available Not available Not available 09/17/2022 69706 9 RxNorm Not Available [facility] 3 13:35:47 26442 Celebrex medicatio n diarrhea vomiting Not available Not available Not available 12/22/2024 70826 7 RxNorm Verito Beto, RETAIL COORDINATOR null, [place] [facility] 5 09:35:05 07215 clindamyc in Not available hives Not available Not available 12/22/2024 2582 RxNorm Verito Beto, RETAIL COORDINATOR null, [place] - [facility] 09:36:19 Medications Name Sig Start Date Stop [...] Updated DateTime 11/07/2022 162.56 cm MALENA Valencia [facility] 11/07/2022 12:10:12 Date Recorded Body height Body mass index (BMI) Body weight Provider Name and Address Organization Details Last Updated DateTime 12/22/2024 165.1 cm 34.1 kg/m2 75426.44 g Verito Pérez CNA [facility] 12/22/2024 09:34:11 Date Recorded Body mass index (BMI) Body height Body weight Provider Name and Address Organization Details Last Updated DateTime 01/02/2022 43.1 kg/m2 162.56 cm 127495.68 g Not Available [facility] 09/17/2022 13:34:47 Date Recorded Body height Provider Name an d Address Organization Details Last Updated DateTime 01/16/2022 162.56 cm Not Available [facility] 13:34:47 Date Recorded Body height Provider Name an d Address Organization Details Last Updated DateTime 04/17/2022 162.56 cm Not Available [facility] 13:34:47 Social History Question Answer Notes LastModified by Organizat ion Details LastModified Time Tobacco Smoking Status Current Every Day Smoker Not Available [facility] 09/17/2022 13:34:41 How Much Tobacco Do You Smoke? 0.5 PPD Information not available 12/22/2024 How Many Years Have You Smoked Tobacco? 30 Information not available 12/22/2024 Sex: Unknown Functional Status Question Answer Note LastModified by Organizat ion Details LastModified Time What is your level of alcohol consumption? Occasional [id number] Information not available 09/17/2022 Mental Status None recorded. Family History Nothing Reported. Medical History Condition Response BLINDNESS N KIDNEY STONES N MRSA N CARPAL TUNNEL SYNDROME N LUNG DISEASE/DISORDER N HISTORY OF DRUG ABUSE N RADIATION / CHEMOTHERAPY N COPD N SPORTS INJURY N ANKLE PAIN N BLOOD DISEASES N SCHIZOPHRENIA N SHINGLES N SHOULDER PAIN N BOWEL PROBLEMS N DEPRESSION (INCLUDING POST ) N STROKE/TIA [...] SNOMED-CT Code Diagnosis ICD10 Code Diagnosis Note [id number] Fady Wilde MD [facility]_[address] [address] 01/02/2022 00:00:00 01/20/2022 16:25:29 [id number] Fady Wilde MD [facility]_[address] [address] 01/16/2022 00:00:00 01/20/2022 16:36:07 [id number] MARKIE Angulo [facility]_[address] [address] 04/17/2022 00:00:00 04/17/2022 15:51:11 [id number] Fady Wilde MD [facility] [address] [place] [address] 11/07/2022 12:00:50 11/07/2022 12:54:24 Pain of right knee joint 8884053003 18268 M25.321 [id number] Juan Pablo Mcclelland MD [facility] [address] [facility] [address] [place] [address] 12/22/2024 09:12:25 12/22/2024 10:35:37 Pain of right knee joint 3242880272 25168 M25.561 History of right total knee replacement 5121231947 449277 Z96.651 Pain of knee region 1003 592224 T84.84XA Z96.659 History of left total knee replacement 4684140694 945520 Z96.652 Health Concerns Section Related Observation LastModified by Organization Detai ls LastModified Time None Recorded Concern Status LastModified by Organization Details LastModified Time None Recorded Advance Directives Directive None Recorded Payers Insurance Date Sequence Insurance Name Policy Number Policy Skaggs Covered Member ID Skaggs Member ID Guarantor Name 12/22/[address] [facility] ON OR AFTER 01/17/21 (MEDICAID REPLACEMENT - HMO) Whit Segovia [id number] Whit Giulia Luca Notes Date Note Type Note Provider Name [...] the patient did have x-rays done at [facility] recently on December 19. She [...] sweats otherwise feels well. MARKIE Morataya [address] [facility] [address], [place], [address], [place] [facility] [facility] 12/22/2024 10:40:51 OBGyn Episode No OBEpisode recorded.
--- OUTSIDE RECORDS SUMMARY | 2025-01-06 00:17 | XMS_ITS | Encounter Summary ---
Author Organization [facility] Health Address [address] [place] [address] Care Team Providers Care Apple Peeler Operator Name Role Phone Luis M Kirkpatrick MD Unavailable [phone] Lucho Casas MD Unavailable [phone] Luis M Kirkpatrick MD Primary Care Provider [phone] Encounter Details Date Type Department Care Team (Late st Contact Info) Description 05/29/2023 Telephone [facility] - Endocrinology [address] [place] [address], [place] [address] Sobia Meza MD [address] [place] [phone] Social History Tobacco Use Types Packs/Day Years Used Date Smoking Tobacco: Some Days Cigarettes 0.5 30 Smokeless Tobacco: Former Alcohol Use Standard Drinks/Week Comments Yes 0 (1 standard drink = 0.6 oz pur e alcohol) socially Comments No Sex and Gender Information Value Date Recorded Sex Assigned at Not on file Legal Sex Female 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 Drug type:LANTUS PEN, ONE TOUCH ULTRA STRIPS, AND PEN NEEDLES BUT MAY NEED A SUBSTITUTE BRAND OF PEN NEEDLES DUE TO INSURANCE NOT COVERING. Pharmacy:[id number] - [address] [facility] [place] [facility] [address] [facility] [place] [facility] [place] [address] Patient call back number: [phone] . PATIENT ALSO STATES HER BLOOD SUGAR IS STILL IN THE 300'S AND WOULD LIKE A CALL FROM THE OFFICE. E WEAVER documented in this encounter Plan of Treatment Not on file documented as of this encounter Visit Diagnoses Not on filedocumented in this encounter Care Teams Apple Peeler Operator Relationship Specialty Start Date End Date Luis M Kirkpatrick MD [address] [place] [address] PCP - General 11/26/21 Luis M Kirkpatrick MD [address] [place] [address] 04/16/21 Lucho Casas MD [address] [place] [address] 10/07/18 documented as of this encounter
--- OUTSIDE RECORDS SUMMARY | 2025-01-06 00:17 | XMS_ITS | Encounter Summary ---
Author Organization [facility] Health Address [address] [facility] [place] [address] Care Team Providers Care Bend Sorter Name Role Phone Luis M Kirkpatrick MD Unavailable [phone] Lucho Casas MD Unavailable [phone] Luis M Kirkpatrick MD Primary Care Provider [phone] Encounter Details Date Type Department Care Team (Late st Contact Info) Description 05/13/2023 Telephone [facility] - Endocrinology [address] [place] [address], [facility] [place] [address] Arelis Argueta MD [address] [place] [address] [place] [address] Social History Tobacco Use Types Packs/Day Years Used Date Smoking Tobacco: Some Days Cigarettes 0.5 30 Smokeless Tobacco: Former Alcohol Use Standard Drinks/Week Comments Yes 0 (1 standard drink = 0.6 oz pur e alcohol) socially Comments No Sex and Gender Information Value Date Recorded Sex Assigned at Not on file Legal Sex Female 1:22 PM WELDER SHIELDED METAL ARC Gender Identity Not on file Sexual Orientation [...] I tried calling her but she didn't roll picker. Can you please let her know. [...] Thanks so much. Patient Call Back number: [phone] documented in this encounter Plan of Treatment Not on file documented as of this encounter Visit Diagnoses Not on filedocumented in this encounter Care Teams Bend Sorter Relationship Specialty Start Date End Date Luis M Kirkpatrick MD [address] [place] [address] PCP - General 11/26/21 Luis M Kirkpatrick MD [address] [place] [address] 04/16/21 Lucho Casas MD [address] [place] [address] 10/07/18 documented as of this encounter
--- OUTSIDE RECORDS SUMMARY | 2025-01-06 00:17 | XMS_ITS | Clinical Summary ---
Author Organization [facility] Address [address] [facility] [place] [address] Care Team Providers Care Test Kitchen Home Economist Name Role Phone Luis M Kirkpatrick MD Unavailable [phone] Lucho Casas MD Unavailable [phone] Luis M Kirkpatrick MD Primary Care Provider [phone] Source Comments [facility],non-owned Affiliates and Associated Physician Practices is amultiple site organization consisting of ambulatory clinics and hospital sitesin [place], [place], [place] and [place]. This disclosure is being madepursuant to the Care Everywhere program and may not contain all information available regarding this patient. Last updated 18.[facility] Allergies Active Allergy Reactions Criticality [...] on file Legal Sex Female 1:22 PM HOSTED SERVICES ANALYST Gender Identity Not on file Sexual Orientation Not on file Last Filed Vital Signs Vital Sign Reading Time Taken Comments Blood Pressure 146/85 09/15/2023 11:07 AM HOSTED SERVICES ANALYST Pulse 93 09/15/2023 11:07 AM HOSTED SERVICES ANALYST Temperature 36.5 C (97.7 F) 06/09/2023 10:42 AM HOSTED SERVICES ANALYST Respiratory Rate 18 06/09/2023 10:42 AM HOSTED SERVICES ANALYST Oxygen Saturation 96% 09/15/2023 11:07 AM HOSTED SERVICES ANALYST Inhaled Oxygen Concentration - - Weight 105.2 kg (232 lb) 09/15/2023 11:07 AM HOSTED SERVICES ANALYST Height 165.1 cm (5' 5) 09/15/2023 11:07 AM HOSTED SERVICES ANALYST Body Mass Index 38.61 09/15/2023 11:07 AM HOSTED SERVICES ANALYST Plan of Treatment Health Maintenance Due Date [...] CARE (AMB) [facility] Routine 06/09/2023 11:02 AM HOSTED SERVICES ANALYST Diabetes mellitus type 2, insulin dependent MICROALB/CREAT RATIO URINE RANDOM PANEL Routine 01/28/2022 1:09 PM CDT Diabetes mellitus type 2, insulin dependent COMPREHENSIVE METABOLIC PANEL Routine 01/28/2022 1:09 PM CDT Diabetes mellitus type 2, insulin dependent from Last 3 Months or Most Recently Relevant to Health Maintenance Results * HEMOGLOBIN A1C - POINT OF CARE (AMB) [facility] (06/09/2023 11:02 AM HOSTED SERVICES ANALYST) Hemoglobin A1c POCT 11.9 % [address] BLOOD SPECIMEN / Unknown 06/09/2023 11:02 AM HOSTED SERVICES ANALYST us Arelis Argueta MD LAB - POINT OF CARE ORDERABLES Final Result [address], [place] [address], [facility] [phone] * MICROALB/CREAT RATIO URINE RANDOM PANEL (01/28/2022 1:09 PM CDT) Albumin Random Urine 6.3 Not Established ug/mL 01/28/2022 1:54 PM CDT [facility] Creatinine Urine 54 Not Established mg/dL 01/28/2022 1:54 PM CDT [facility] Urine Albumin/Creati nine Ratio 12 <30 mg/g 01/28/2022 1:54 PM CDT [facility] Urine URINE SPECIMEN OBTAINED BY CLEAN CATCH PROCEDURE / Unknown Collection / Unknown 01/28/2022 1:09 PM CDT 01/28/2022 1:29 PM CDT us Emma Vieira MD LAB - URINE CHEMISTRY ORDERABLES Final Result [facility] [address] [place] [address], [facility] [phone] * (ABNORMAL) COMPREHENSIVE METABOLIC PANEL (01/28/2022 1:09 PM [facility]) BUN 9 7 - 26 mg/dL 01/28/2022 2:02 PM [facility] Creatinine 0.50(L) 0.56 - 0.96 mg/dL 01/28/2022 2:02 PM [facility] Sodium 142 136 - 145 mmol/L 01/28/2022 2:02 PM [facility] Potassium 3.7 3.5 - 4.5 mmol/L 01/28/2022 2:02 PM [facility] Chloride 102 98 - 107 mmol/L 01/28/2022 2:02 PM [facility] CO2 27 22 - 29 mmol/L 01/28/2022 2:02 PM [facility] Glucose 97 70 - 115 mg/dL 01/28/2022 2:02 PM [facility] Calcium 9.6 8.4 - 10.2 mg/dL 01/28/2022 2:02 PM [facility] Protein Total 7.5 6.0 - 8.3 g/dL 01/28/2022 2:02 PM [facility] Albumin 4.1 3.4 - 5.0 g/dL 01/28/2022 2:02 PM [facility] Bilirubin Total 0.6 0.2 - 1.2 mg/dL 01/28/2022 2:02 PM [facility] Alkaline Phosphatase 65 40 - 150 U/L 01/28/2022 2:02 PM [facility] ALT 17 5 - 55 U/L 01/28/2022 2:02 PM [facility] AST 16 5 - 34 U/L 01/28/2022 2:02 PM [facility] Anion Gap 17 8 - 18 01/28/2022 2:02 PM [facility] BUN/Creatinine Ratio 18 7 - 23 01/28/2022 2:02 PM [facility] Osmolality Calculated 293 270 - 300 mOsm/kg 01/28/2022 2:02 PM T [facility] Albumin/Globulin Ratio 1.2 1.1 - 2.3 01/28/2022 2:02 PM T [facility] eGFR by CKD-EPI >90 >=90 mL/min/1.7 3 m2 01/28/2022 2:02 PM T [facility] Blood BLOOD SPECIMEN / Unknown Lab Venipuncture / Unknown 01/28/2022 1:09 PM CDT 01/28/2022 1:33 PM CDT Emma Vieira MD LAB - CHEMISTRY ORDERABLES Final Result [place] [facility] [address] [place] [address], [facility] [phone] from Last 3 Months or Most Recently Relevant to Health Maintenance Insurance [id number] [place] [id number] [place] [address] [facility] Care Teams Test Kitchen Home Economist Relationship Specialty Start Date End Date Luis M Kirkpatrick MD [address] [facility] [address] [place] [address] PCP - General 11/26/21 Luis M Kirkpatrick MD [address] [place] [address] 04/16/21 Lucho Casas MD [address] [place] [address] 10/07/18
--- OUTSIDE RECORDS SUMMARY | 2025-01-06 00:18 | XMS_ITS | Clinical Summary ---
Author Organization [facility] Address [address] [place] [address] Care Team Providers Care Supervisor Residential Name Role Phone Unavailable Primary Care Provider Unavailabl e Social History Tobacco Use Types Packs/Day Years Used Date Smoking Tobacco: Never Assessed Comments Unknown Sex and Gender Information Value Date Recorded Sex Assigned at Not on file Legal Sex Female 9:24 AM CLINICAL RECRUITER Gender Identity Not on file Sexual Orientation [...]
[2025-01-06 09:53] LABS: Glucose Point of Care 225 mg/dl (65-105)
[2025-01-06] MEDS: LACTATED RINGERS 1,000 ML 30 ML IV CONT (09:57)
[2025-01-06 09:58] LABS: BEDSIDEPREGUCG Negative (Negative)
--- NOTE | 2025-01-06 10:25 | WPDHPUPDATE1 ---
History and Physical Update Update Date/Time: 01/06/25 10:25 History and Physical has been reviewed, including an updated exam of the patient. There are NO changes in the patient's condition. Risks, benefits, and alternatives have been discussed and questions answered. Patient agrees to proceed with procedure.
[2025-01-06] MEDS: ceFAZolin 2 GM/D5W 50 ML 2 GM/50 ML BAG IVPB (10:31)
--- NOTE | 2025-01-06 10:40 | P.PNAN_ITS ---
Anes - Initial Pre Proc Eval Procedure: Operation Date: 01/06/25 10:30 Proposed Procedures p Excision of Left Lower Quadrant Abdominal Wall Cyst and Sinus Tract - Jayden Mac MD Date/Time: 01/06/25 10:40 Surgeon: Jayden Mac MD Pre Op Diagnosis: left quad abdominal wall cyst & sinus tract Patient Data Age: 54 Gender: F Height: 1.65 m Weight: 91.8 kg Last Vital Signs Temp 98 F 01/06/25 09:53 Pulse 88 01/06/25 09:53 BP 132/85 01/06/25 09:53 Pulse Ox 99 01/06/25 09:53 O2 Del Method Room Air 01/06/25 09:53 Allergies Allergy/AdvReac Type Severity Reaction Status Date / Time clindamycin Allergy Unknown Hives / Verified 01/06/25 09:52 Red Face celecoxib AdvReac Mild Unknown Verified 01/06/25 09:52 propoxyphene AdvReac Unknown Nausea and Verified 01/06/25 09:52 Vomiting sulfamethoxazole AdvReac Unknown Vomiting Verified 01/06/25 09:52 trimethoprim AdvReac Unknown Vomiting Verified 01/06/25 09:52 hydrocodone (From Lortab) AdvReac Nausea and Verified 01/06/25 09:52 Vomiting Home Medications ?Medication ?Instructions ?Recorded ?Confirmed ?Type blood sugar diagnostic (OneTouch #100 ea 09/21/24 01/03/25 Rx Verio test strips) blood-glucose meter (OneTouch #1 ea 09/21/24 01/03/25 Rx Verio Flex Meter) insulin lispro 100 unit/mL See Rx Instructions .Route 10/19/24 01/03/25 Rx subcutaneous pen .COMPLEX #15 mL canagliflozin 300 mg tablet See Rx Instructions .Route 11/17/24 01/03/25 Rx (Invokana) .COMPLEX #90 tabs fluoxetine 20 mg capsule 20 mg PO DAILY #90 caps 11/17/24 01/03/25 Rx gabapentin 300 mg capsule 300 mg PO Q12H #180 caps 11/17/24 01/03/25 Rx insulin glargine 100 unit/mL (3 25 unit (0.25 mL) subcut QPM #15 mL 11/17/24 01/03/25 Rx mL) subcutaneous pen (Lantus Solostar U-100 Insulin) lisinopril 10 mg tablet 10 mg PO DAILY #90 tabs 11/17/24 01/03/25 Rx simvastatin 20 mg tablet 20 mg PO HS #90 tabs 11/17/24 01/03/25 Rx sotalol 80 mg tablet See Rx Instructions .Route 11/17/24 01/03/25 Rx .COMPLEX #180 tabs metformin 1,000 mg tablet 1,000 mg PO BID #180 tabs 12/13/24 01/03/25 Rx pen needle, diabetic 31 gauge x See Rx Instructions miscellaneous 12/13/24 01/03/25 Rx 5/16 (TRUEplus Pen Needle) .COMPLEX #100 ea cephalexin 500 mg capsule 500 mg PO Q8H #30 caps 12/21/24 01/03/25 Rx Laboratory Tests 01/06/25 01/06/25 09:49 09:53 POC Capillary Glucose 225 H mg/dl (65-105) POC Urine HCG, Qual Negative (Negative) Patient hx anesthesia problems: none Family hx anesthesia problems: none Results Review: All pre-operative results and documents have been reviewed as part of the pre- operative evaluation. COUNT INCLUDES THE [facility] Past Medical History Medical History Chronic anticoagulation Paroxysmal atrial fibrillation Insulin dependent diabetes mellitus Pulmonary embolism Deep venous thrombosis Depression with anxiety Hyperlipidemia Hypertension Surgical History Surgical History History of dilation and curettage History of cholecystectomy History of tonsillectomy History of bilateral knee replacement Family History Family History Unknown Adopted Social History Social History Social History: Surrogate medical decision maker: Han Segovia, spouse. Code status: Full code. Years smoked: 30 Smoking status: Current every day smoker Tobacco type: cigarettes Second hand tobacco smoke exposure: No Alcohol intake: current Drinks per week: 5 Substance use: current Substance use type: marijuana Other substance usage details: Gummies every once in awhile. Do You Feel Safe in your Home?: Yes Lack of Transportation: No Lack of Food: Never True Current Housing: I Have Housing Concerned About Future Housing: No Difficulty Paying Gas/Electric Bills: No Difficulty Paying for Meds: No Currently Unemployed: No Education: Decline to Answer Difficulty w/ Childcare or Family Care: No Living arrangements: with family Spiritual care concerns: No Anes - Eval Final PreProcedure Day of Procedure 01/06/25 10:40 Patient weight: obese Heart: regular rate and rhythm Lungs: clear to auscultation Airway: Mallampati scale class II Neurological: alert and oriented Last oral intake: >/= 8 hours ASA classification: III Emergent: no Anesthetic plan: proceed Anesthesia type and monitoring: general LMA and standard monitoring Results Review: All pre-operative results and documents have been reviewed as part of the pre- operative evaluation. Informed Consent: The patient's anesthetic plan and its attendant risks and benefits were discussed with the patient/family/POA. Questions were solicited and answers provided to the satisfaction of the patient/family/POA.
[2025-01-06] MEDS: BUPivacaine HCL 0.5% PF 30 ML VIAL INFILTRATE ×2 (10:48→10:55)
--- NOTE | 2025-01-06 11:04 | S_PTH ---
PATIENT: Whit Segovia LOC: [facility] U#:[id number] AGE/SX: 54/F ROOM: RE01/06/[address]: Jayden Mac MD : 1970 BED: DIS: 01/06/2025 SPEC #: [id number] RECD: 01/06/25 11:45 STATUS: JULISA REQ #: [id number] MALIA: 01/06/25 11:[address]: Jayden Mac DEPT: [facility] Surgical RECD BY: Amaya Watts ENTERED: 01/06/25 11:46 SP TYPE: Surgical OTHR DR: Genia Moran, HERBERT Tissues: A - Cyst Procedures: Hematoxylin and Eosin Stain Gross and Microscopic Level 4
[2025-01-06] MEDS: KETOROLAC 30 MG/ML VIAL (*BKC) IV PUSH (11:08)
--- NOTE | 2025-01-06 11:40 | W.PM.PROC2 ---
Procedure Note - Detailed Date of Procedure 01/06/25 Pre-op Diagnosis Left quad abdominal wall cyst & sinus tract Post-op Diagnosis Same Procedure Performed Excision of left lower quadrant abdominal wall cyst with sinus tract and 12cm intermediate layered wound closure. Surgeon Jayden Mac MD Clerical Car Checker [employer] [place] [employer] Anesthesia General Indications Patient is a 54-year-old female who has had a chronic cyst and abscess the left lower quadrant abdominal wall. The drains through a short lateral sinus tract opening. She presents now for excision of the chronic abscess/cyst and sinus tract. Findings The ellipse of tissue excised containing the back abscess cavity/cyst and sinus tract measured 10x2.5x1.5cm. It required a 12cm intermediate layered wound closure. Description of Procedure After informed consent was obtained patient brought to the operating room she was placed supine position and general LMA anesthesia was administered. The left lower quadrant of the abdomen was then prepped draped in the usual sterile fashion. A time-out was then performed correctly identifying the patient as well as procedure to be performed. Site marking was verified. She was given perioperative IV antibiotics. I then made a oblique elliptical incision deeply down through the dermis skin with a scalpel to include the whole cavity of the cyst wall and chronic abscess. There is a small short 2cm lateral sinus tract which is included in the excision with the ellipse of tissue. Scalp was used to carry the incision down deeply down through the dermis of the skin and electrocautery was used to completely excise out the ellipse of tissue down to the underlying healthy appearing subcutaneous fat. The specimen was measured and it was 10x2.5x1.5cm. It was sent to pathology for examination. Incision was then irrigated sterile saline solution and hemostasis was achieved utilized electrocautery. A 12cm intermediate layered wound closure was then performed to close the incision. Multiple layers of interrupted 2-0 Vicryl sutures were used to close the deeper layers of the subcutaneous tissues. This was followed by layer interrupted 3-0 Vicryl sutures in the deep dermal layer. The skin edges were then approximated utilizing a running subcuticular 4 Monocryl suture. The incision was then cleaned the skin glue was applied. The patient tolerated the procedure well no complications. All sponges, needles, and instrument counts were correct at the end procedure. EBL was _20__cc. The patient was awakened and taken to recovery in stable and satisfactory condition. Implants None Estimated Blood Loss 20 Drains No Packing No Pathology Yes (Cyst/abscess cavity and draining sinus tract sent to pathology) Complications No immediate complications Condition Stable Disposition PACU [facility] Billing Surgery - Charge Forward: Surgery Billing
[2025-01-06 11:49] LABS: Glucose Point of Care 218 mg/dl (65-105)
== END 2025-01-06 13:19 | disposition home or self-care (01) ==
PROVIDERS: PCP Nurse Practitioner Family; Visit Provider Surgery
PROC: (CPT 11406; principal; 2025-01-06 10:30)
DX: L02.211 Cutaneous abscess of abdominal wall (principal); E11.9 Type 2 diabetes mellitus without complications; F17.210 Nicotine dependence, cigarettes, uncomplicated; F12.90 Cannabis use, unspecified, uncomplicated; E66.9 Obesity, unspecified; Z68.33 Body mass index [BMI] 33.0-33.9, adult
CPT/HCPCS: 11406; 12034; 82948; 88305; A9270; J0690; J1885; J2003; J2004; J2250; J2405; J2704; J3010; J7120

== ENCOUNTER 2025-01-12 09:04 | Outpatient (RCR) | payer OTHER, SELFPAY | END 2025-01-12 10:07 | disposition home or self-care (01) | LOC: ANHDMC 09:04 | PROVIDERS: PCP Nurse Practitioner Family; Visit Provider Nurse Practitioner Family | DX: E11.65 Type 2 diabetes mellitus with hyperglycemia (principal); Z79.4 Long term (current) use of insulin; E11.10 Type 2 diabetes mellitus with ketoacidosis without coma; Z71.89 Other specified counseling | CPT/HCPCS: G0108 ==

== ENCOUNTER 2025-02-07 16:21 | Inpatient (IN) | payer OTHER, SELFPAY ==
--- NOTE | 2025-02-07 16:12 | PM.IMHP ---
H&P: HPI History of Present Illness Date/Time: 02/07/25 16:12 Chief Complaint: Left groin abscess and cellulitis, poorly-controlled insulin-dependent diabetes mellitus Narrative: Patient is a 54-year-old female who I have been following for for multiple cutaneous abscesses. I performed excision of a chronic abscess cavity and draining sinus tract in left lower quadrant of the abdominal wall in the subcutaneous tissues most recently. That area seems to be healing but she developed 3 more areas on her mons pubis which spontaneously drained and have been responsive to oral antibiotic therapy including doxycycline. However she has presented to the office earlier today with complaints of a new abscess which is not yet draining in the left groin region. No fevers or chills however her blood sugars have been in the 200s lately but her goal is below 120. Review of Systems Review of Systems: The remainder of the review of systems to include constitutional, HEENT, cardiovascular, respiratory, GI, , integumentary, musculoskeletal, endocrine, immunologic, hematologic, psychiatric, and neurologic are all negative except for which is mentioned above in the HPI. [facility] Past Medical History Medical History Chronic anticoagulation Paroxysmal atrial fibrillation Insulin dependent diabetes mellitus Pulmonary embolism Deep venous thrombosis Depression with anxiety Hyperlipidemia Hypertension Surgical History Surgical History Hx of removal of cyst 01/06/25 Excision of left lower quadrant abdominal wall cyst with sinus tract and 12cm intermediate layered wound closure Dr. Mac History of dilation and curettage History of cholecystectomy History of tonsillectomy History of bilateral knee replacement Family History Family History Unknown Adopted Social History Social History Social History: Surrogate medical decision maker: Han Segovia, spouse. Code status: Full code. Years smoked: 30 Smoking status: Current every day smoker Tobacco type: cigarettes Second hand tobacco smoke exposure: No Alcohol intake: current Drinks per week: 5 Substance use: current Substance use type: marijuana Other substance usage details: Gummies every once in awhile. Do You Feel Safe in your Home?: Yes Lack of Transportation: No Lack of Food: Never True Current Housing: I Have Housing Concerned About Future Housing: No Difficulty Paying Gas/Electric Bills: No Difficulty Paying for Meds: No Currently Unemployed: No Education: Bachelor's Degree Difficulty w/ Childcare or Family Care: No Living arrangements: with family Spiritual care concerns: No Meds Home Medications and Allergies Home Medications ?Medication ?Instructions ?Recorded ?Confirmed ?Type blood sugar diagnostic (OneTouch #100 ea 09/21/24 02/07/25 Rx Verio test strips) blood-glucose meter (OneTouch #1 ea 09/21/24 02/07/25 Rx Verio Flex Meter) insulin lispro 100 unit/mL See Rx Instructions .Route 10/19/24 02/07/25 Rx subcutaneous pen .COMPLEX #15 mL canagliflozin 300 mg tablet See Rx Instructions .Route 11/17/24 02/07/25 Rx (Invokana) .COMPLEX #90 tabs fluoxetine 20 mg capsule 20 mg PO DAILY #90 caps 11/17/24 02/07/25 Rx gabapentin 300 mg capsule 300 mg PO Q12H #180 caps 11/17/24 02/07/25 Rx insulin glargine 100 unit/mL (3 25 unit (0.25 mL) subcut QPM #15 mL 11/17/24 02/07/25 Rx mL) subcutaneous pen (Lantus Solostar U-100 Insulin) lisinopril 10 mg tablet 10 mg PO DAILY #90 tabs 11/17/24 02/07/25 Rx simvastatin 20 mg tablet 20 mg PO HS #90 tabs 11/17/24 02/07/25 Rx sotalol 80 mg tablet See Rx Instructions .Route 11/17/24 02/07/25 Rx .COMPLEX #180 tabs metformin 1,000 mg tablet 1,000 mg PO BID #180 tabs 12/13/24 02/07/25 Rx pen needle, diabetic 31 gauge x See Rx Instructions miscellaneous 12/13/24 02/07/25 Rx 5/16 (TRUEplus Pen Needle) .COMPLEX #100 ea blood-glucose sensor (Dexcom G7 #1 ea 01/11/25 02/07/25 Rx Sensor device) blood-glucose,learning operations specialist,cont #1 ea 01/11/25 02/07/25 Rx (Dexcom G7 Outside Sales Professional) Allergies Allergy/AdvReac Type Severity Reaction Status Date / Time clindamycin Allergy Unknown Hives / Verified 02/07/25 09:08 Red Face celecoxib AdvReac Mild Unknown Verified 02/07/25 09:08 propoxyphene AdvReac Unknown Nausea and Verified 02/07/25 09:08 Vomiting sulfamethoxazole AdvReac Unknown Vomiting Verified 02/07/25 09:08 trimethoprim AdvReac Unknown Vomiting Verified 02/07/25 09:08 hydrocodone (From Lortab) AdvReac Nausea and Verified 02/07/25 09:08 Vomiting Exam Const: General: comfortable and no acute distress HENMT: Ears: TM's normal bilaterally Face/Nose/Sinus: Normal nares present Mouth: Yes moist mucous membranes Eyes: General: appearance normal, both eyes and all related structures Sclera: sclerae normal Pupils: Equal, round and reactive pupils present EOM: EOMs intact bilaterally Neck: Neck: supple and no JVD Resp: Effort & Inspection: normal respiratory effort Auscultation: clear to auscultation bilaterally Cardio: Rate: regular rate Rhythm: regular rhythm GI: GI Palp: Yes Soft to palpation, No Firmness to palpation present (GI), No Tenderness to palpation present (GI), No Guarding due to palpation present (GI) and No Hernia present Skin: Other: In the crease of the left groin region the patient has a 5cm area of induration and redness. In the small middle of the area of induration is a 3cm fluctuant area with an undrained abscess there is moderate tenderness to palpation of this region. No obvious evidence of necrotizing soft tissue infection presently. Neuro: General: gait normal Speech: normal speech Motor exam (neuro): 5/5 motor strength present throughout Sensory Exam: normal sensation Extrem: General: normal to inspection Psych: Mental Status: mental status grossly normal Affect: normal affect Assessment and Plan Assessment and plan (1) Abscess of groin, left: Code(s): L02.214 - Cutaneous abscess of groin Status: Acute Assessment and Plan: Patient has a new area of cellulitis and undrained abscess in the left groin. Her blood sugars have been high which may be the reason for getting the abscess or it is reactive to getting the abscess and she now has hyperglycemia. Because she is a diabetic fractures this area can get out of control become necrotizing fasciitis. I recommended she be admitted to the hospital and started on IV antibiotics to include coverage for Gram-negative organisms as well as MRSA. She has had multiple soft tissue infections in the past so I would be suspicious that she could be colonized with MRSA. Go ahead and get a nasal swab under admission for MRSA. Will start on IV antibiotics to cover MRSA as well as Gram-negative organisms. Will make her NPO after midnight in anticipation of need to incise and drain the abscess in the operating room tomorrow. Will consult hospitalist service to assist with the management of her diabetes. She needs to go back to work this afternoon but agreed to come back to the hospital for direct admission to the [facility] surge floor to start her IV antibiotics. (2) Insulin dependent diabetes mellitus: Status: Acute Assessment and Plan: Management as per hospitalist service.
--- OUTSIDE RECORDS SUMMARY | 2025-02-07 17:11 | XMS_ITS | Encounter Summary ---
Author Organization [facility] Address [address] [place] [address] Care Team Providers Care Meat Packer Name Role Phone Luis M Kirkpatrick MD Unavailable [phone] Lucho Casas MD Unavailable [phone] Luis M Kirkpatrick MD Primary Care Provider [phone] Encounter Details Date Type Department Care Team (Late st Contact Info) Description 05/27/2023 Telephone [facility] - Centralized Scheduling [address] [place] [id number] Arelis Argueta MD [facility] [place] [id number] Social History Tobacco Use Types Packs/Day Years Used Date Smoking Tobacco: Some Days Cigarettes 0.5 30 Smokeless Tobacco: Former Alcohol Use Standard Drinks/Week Comments Yes 0 (1 standard drink = 0.6 oz pur e alcohol) socially Comments No Sex and Gender Information Value Date Recorded Sex Assigned at Not on file Legal 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 To let her know that Dr. Berry sent her prescriptions into the pharmacy. Patient did not answer. Left voice mail to call office back. T ROOM INSPECTOR * Telephone Encounter - Oscar Sainilucía - 05/27/2023 9:15 AM CST Patient called in requesting a Med refill. Drug type: dulaglutide (Trulicity) 1.5 MG/0.5ML injection, insulin pen needle (B-D UF III MINI PEN NEEDLES) 31G X 5 MM needle and one touch ultra test strips. Pharmacy:[facility] [address] [place] [address] Patient call back number: [phone]. States thatshe is running out of medication. Is frustrated because she was told that Dr. Meza would be fillingher meds because Dr. Quintana is certified through [place]. Reached out to SCOTT Hoyos regarding this concern and was advised that Dr. Meza isn't here today. Ms. Segovia would like a call back to discuss further steps. Callback number listed above. . T ROOM INSPECTOR documented in this encounter Plan of Treatment Not on file documented as of this encounter Visit Diagnoses Not on filedocumented in this encounter Care Teams Meat Packer Relationship Specialty Start Date End Date Luis M Kirkpatrick MD [address] [place] [address] PCP - General 11/26/21 Luis M Kirkpatrick MD [address] [place] [address] 04/16/21 Lucho Casas MD [address] [place] [address] 10/07/18 documented as of this encounter
--- OUTSIDE RECORDS SUMMARY | 2025-02-07 17:11 | XMS_ITS | Encounter Summary ---
Author Organization [facility] Address [address] [facility] [place] [address] Care Team Providers Care Looper Operator Name Role Phone Luis M Kirkpatrick MD Unavailable [phone] Lucho Casas MD Unavailable [phone] Luis M Kirkpatrick MD Primary Care Provider [phone] Encounter Details Date Type Department Care Team (Late st Contact Info) Description 04/23/2023 Telephone [facility] - Centralized Scheduling [address] [place] [phone] Arelis Argueta MD [address] [place] [phone] Social History Tobacco Use Types Packs/Day Years Used Date Smoking Tobacco: Some Days Cigarettes 0.5 30 Smokeless Tobacco: Former Alcohol Use Standard Drinks/Week Comments Yes 0 (1 standard drink = 0.6 oz pur e alcohol) socially Comments No Sex and Gender Information Value Date Recorded Sex Assigned at Not on file 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
--- OUTSIDE RECORDS SUMMARY | 2025-02-07 17:11 | XMS_ITS | Encounter Summary ---
Author Organization [facility] Health Address [address] [facility] [place] [address] Care Team Providers Care Legal Practice Manager Name Role Phone Luis M Kirkpatrick MD Unavailable [phone] Lucho Casas MD Unavailable [phone] Luis M Kirkpatrick MD Primary Care Provider [phone] Encounter Details Date Type Department Care Team (Late st Contact Info) Description 05/29/2023 Telephone [facility] - Endocrinology [address] [place] [address], [place] [address] Sobia Meza MD [address] [place] [phone] Social History Tobacco Use Types Packs/Day Years Used Date Smoking Tobacco: Some Days Cigarettes 0.5 30 Smokeless Tobacco: Former Alcohol Use Standard Drinks/Week Comments Yes 0 (1 standard drink = 0.6 oz pur e alcohol) socially Comments No Sex and Gender Information Value Date Recorded Sex Assigned at Not on file 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 Drug type:LANTUS PEN, ONE TOUCH ULTRA STRIPS, AND PEN NEEDLES BUT MAY NEED A SUBSTITUTE BRAND OF PEN NEEDLES DUE TO INSURANCE NOT COVERING. Pharmacy:[id number] - [address] [facility] [place] [address] [facility] [address] Patient call back number: [phone] . PATIENT ALSO STATES HER BLOOD SUGAR IS STILL IN THE 300'S AND WOULD LIKE A CALL FROM THE OFFICE. S HOST documented in this encounter Plan of Treatment Not on file documented as of this encounter Visit Diagnoses Not on filedocumented in this encounter Care Teams Legal Practice Manager Relationship Specialty Start Date End Date Luis M Kirkpatrick MD [address] [place] [address] PCP - General 11/26/21 Luis M Kirkpatrick MD [address] [place] [address] 04/16/21 Lucho Casas MD [address] [place] [address] 10/07/18 documented as of this encounter
--- OUTSIDE RECORDS SUMMARY | 2025-02-07 17:11 | XMS_ITS | Continuity of Care Document ---
Author Organization [facility] Address [address] [place] [address] [place] [address] Phone Care Team Providers Care Investigations Manager Name Role Phone Gage Kaiser Unavailable Unavailable Procedures Procedure Date Eye Exam & Treatment Refraction Eye Exam, New Patient Advance Directives Directive Yes / No Effective Date File Name No Information Encounters Encounter Description Practice Location Reason(s) For Visit Diagnoses Date Provider Providers Copied on Encounter [facility], [address] [place] [address] [address], [place], [place], [id number], tel:[phone] [facility] No Information 8-201 0 Krishnasamy Gage. [address] [address], [place], [place], [facility], [place]. tel:[phone] [facility], [address] [place] [address] [address], [place], [place], [id number], tel:[phone] [facility] No Information 0-200 9 Krishnasamy Gage. [address] [facility] [address], [place], [address], [place]. tel:[phone] Family History Family Member Type Diagnosis Age At Onset No Information Payers Payer name Insurance type Covered constitution party ID Authortaylora bill(s) Medicaid [facility] [id number] Social History Type Description Quantity Date Captured [...]
--- OUTSIDE RECORDS SUMMARY | 2025-02-07 17:11 | XMS_ITS | Clinical Summary ---
Author Organization [facility] Address [address] [place] [address] Care Team Providers Care Veterinary Manager Name Role Phone SharifamattyJuan Pablo baker Javi DO Primary Care Provider Allergies Active Allergy [...] patient's age to complete this topic [facility] Care Teams Veterinary Manager Relationship Specialty Start Date End Date Juan Pablo Forbes DO [address] [place] [address] PCP - General INTERNAL MEDICINE 12/02/17
--- OUTSIDE RECORDS SUMMARY | 2025-02-07 17:11 | XMS_ITS | Encounter Summary ---
Author Organization [facility] Health Address [address] [facility] [place] [address] Care Team Providers Care Anodiser Name Role Phone Luis M Kirkpatrick MD Unavailable [phone] Lucho Casas MD Unavailable [phone] Luis M Kirkpatrick MD Primary Care Provider [phone] Encounter Details Date Type Department Care Team (Late st Contact Info) Description 05/13/2023 Telephone [facility] - Endocrinology [address] [place] [address], [facility] [place] [address] Arelis Argueta MD [address] [place] [address] [place] [address] Social History Tobacco Use Types Packs/Day Years Used Date Smoking Tobacco: Some Days Cigarettes 0.5 30 Smokeless Tobacco: Former Alcohol Use Standard Drinks/Week Comments Yes 0 (1 standard drink = 0.6 oz pur e alcohol) socially Comments No Sex and Gender Information Value Date Recorded Sex Assigned at Not on file Legal Sex Female 1:22 PM ENGAGEMENT MANAGER Gender Identity Not on file Sexual [...] I tried calling her but she didn't picker/puller. Can you please let her know. If [...] Thanks so much. Patient Call Back number: [phone] documented in this encounter Plan of Treatment Not on file documented as of this encounter Visit Diagnoses Not on filedocumented in this encounter Care Teams Anodiser Relationship Specialty Start Date End Date Luis M Kirkpatrick MD [address] [place] [address] PCP - General 11/26/21 Luis M Kirkpatrick MD [address] [place] [address] 04/16/21 Lucho Casas MD [address] [place] [address] 10/07/18 documented as of this encounter
--- OUTSIDE RECORDS SUMMARY | 2025-02-07 17:11 | XMS_ITS | Encounter Summary ---
Author Organization [facility] Health Address [address] [place] [address] Care Team Providers Care Candy Wrapping Machine Operator Name Role Phone Luis M Kirkpatrick MD Unavailable [phone] Lucho Casas MD Unavailable Luis M Kirkpatrick MD Primary Care Provider [phone] Encounter Details Date Type Department Care Team (Late st Contact Info) Description 05/27/2023 Telephone [facility] - Endocrinology [address] [place] [address], [facility] [place] [address] Arelis Argueta MD [address] [place] [address] [place] [address] Social History Tobacco Use Types Packs/Day Years Used Date Smoking Tobacco: Some Days Cigarettes 0.5 30 Smokeless Tobacco: Former Alcohol Use Standard Drinks/Week Comments Yes 0 (1 standard drink = 0.6 oz pur e alcohol) socially Comments No Sex and Gender Information Value Date Recorded Sex Assigned at Not on file Legal Sex Female 1:22 PM RHEUMATOLOGY SPECIALIST Gender Identity Not on file Sexual Orientation Not on file documented as of this encounter Miscellaneous Notes * Telephone Encounter - Arelis Argueta MD - 05/29/2023 12:08 PM CST Done MATOLOGY SPECIALIST * Telephone Encounter - Lia Grier LPN [...] doesn't want to go to the ER MATOLOGY SPECIALIST * Telephone Encounter - Tarsha Cedillo - [...] two doses remaining Patient Call Back number: [phone] MATOLOGY SPECIALIST documented in this encounter Plan of Treatment Not on file documented as of this encounter Visit Diagnoses Not on filedocumented in this encounter Care Teams Candy Wrapping Machine Operator Relationship Specialty Start Date End Date Luis M Kirkpatrick MD [address] [place] [address] PCP - General 11/26/21 Luis M Kirkpatrick MD [address] [place] [address] 04/16/21 Lucho Casas MD [address] [place] [address] 10/07/18 documented as of this encounter
--- OUTSIDE RECORDS SUMMARY | 2025-02-07 17:12 | XMS_ITS | Clinical Summary ---
Author Organization [facility] Address [address] [place] [address] Care Team Providers Care Obiee Report Developer Name Role Phone Luis M Kirkpatrick MD Unavailable [phone] Lucho Casas MD Unavailable [phone] Luis M Kirkpatrick MD Primary Care Provider [phone] Source Comments [facility],non-owned Affiliates and Associated Physician Practices is amultiple site organization consisting of ambulatory clinics and hospital sitesin [place], [place], [place] and [place]. This disclosure is being madepursuant to the Care Everywhere program and may not contain all information available regarding this patient. Last updated 18.[facility] Allergies Active Allergy Reactions [...] on file Legal Sex Female 1:22 PM CREDIT ASSOCIATE Gender Identity Not on file Sexual Orientation Not on file Last Filed Vital Signs Vital Sign Reading Time Taken Comments Blood Pressure 146/85 09/15/2023 11:07 AM CREDIT ASSOCIATE Pulse 93 09/15/2023 11:07 AM CREDIT ASSOCIATE Temperature 36.5 C (97.7 F) 06/09/2023 10:42 AM CREDIT ASSOCIATE Respiratory Rate 18 06/09/2023 10:42 AM CREDIT ASSOCIATE Oxygen Saturation 96% 09/15/2023 11:07 AM CREDIT ASSOCIATE Inhaled Oxygen Concentration - - Weight 105.2 kg (232 lb) 09/15/2023 11:07 AM CREDIT ASSOCIATE Height 165.1 cm (5' 5) 09/15/2023 11:07 AM CREDIT ASSOCIATE Body Mass Index 38.61 09/15/2023 11:07 AM CREDIT ASSOCIATE Plan of Treatment Health Maintenance Due Date [...] URINE PROTEIN SCREENING 07/20/2024 01/28/2022 INFLUENZA VACCINE (#1) 2025 08/16/2023, 2020 HIB VACCINE Aged Out No longer eligi [...] CARE (AMB) [facility] Routine 06/09/2023 11:02 AM CREDIT ASSOCIATE Diabetes mellitus type 2, insulin dependent MICROALB/CREAT RATIO URINE RANDOM PANEL Routine 01/28/2022 1:09 PM CDT Diabetes mellitus type 2, insulin dependent COMPREHENSIVE METABOLIC PANEL Routine 01/28/2022 1:09 PM CDT Diabetes mellitus type 2, insulin dependent from Last 3 Months or Most Recently Relevant to Health Maintenance Results * HEMOGLOBIN A1C - POINT OF CARE (AMB) [facility] (06/09/2023 11:02 AM CREDIT ASSOCIATE) Hemoglobin A1c POCT 11.9 % [address] BLOOD SPECIMEN / Unknown 06/09/2023 11:02 AM CREDIT ASSOCIATE us Arelis Argueta MD LAB - POINT OF CARE ORDERABLES Final Result [address], [place] [address], [facility] [phone] * MICROALB/CREAT RATIO URINE RANDOM PANEL (01/28/2022 1:09 PM CDT) Albumin Random Urine 6.3 Not Established ug/mL 01/28/2022 1:54 PM CDT [facility] Creatinine Urine 54 Not Established mg/dL 01/28/2022 1:54 PM CDT [facility] Urine Albumin/Creati nine Ratio 12 <30 mg/g 01/28/2022 1:54 PM CDT [facility] Urine URINE SPECIMEN OBTAINED BY CLEAN CATCH PROCEDURE / Unknown Collection / Unknown 01/28/2022 1:09 PM CDT 01/28/2022 1:29 PM CDT us Emma Vieira MD LAB - URINE CHEMISTRY ORDERABLES Final Result [facility] [address] [place] [address], [facility] [phone] * (ABNORMAL) COMPREHENSIVE METABOLIC PANEL (01/28/2022 1:09 PM [facility]) BUN 9 7 - 26 mg/dL 01/28/2022 2:02 PM [facility] Creatinine 0.50(L) 0.56 - 0.96 mg/dL 01/28/2022 2:02 PM [facility] Sodium 142 136 - 145 mmol/L 01/28/2022 2:02 PM [facility] Potassium 3.7 3.5 - 4.5 mmol/L 01/28/2022 2:02 PM [facility] Chloride 102 98 - 107 mmol/L 01/28/2022 2:02 PM [facility] CO2 27 22 - 29 mmol/L 01/28/2022 2:02 PM [facility] Glucose 97 70 - 115 mg/dL 01/28/2022 2:02 PM [facility] Calcium 9.6 8.4 - 10.2 mg/dL 01/28/2022 2:02 PM [facility] Protein Total 7.5 6.0 - 8.3 g/dL 01/28/2022 2:02 PM [facility] Albumin 4.1 3.4 - 5.0 g/dL 01/28/2022 2:02 PM [facility] Bilirubin Total 0.6 0.2 - 1.2 mg/dL 01/28/2022 2:02 PM [facility] Alkaline Phosphatase 65 40 - 150 U/L 01/28/2022 2:02 PM [facility] ALT 17 5 - 55 U/L 01/28/2022 2:02 PM [facility] AST 16 5 - 34 U/L 01/28/2022 2:02 PM [facility] Anion Gap 17 8 - 18 01/28/2022 2:02 PM [facility] BUN/Creatinine Ratio 18 7 - 23 01/28/2022 2:02 PM [facility] Osmolality Calculated 293 270 - 300 mOsm/kg 01/28/2022 2:02 PM [facility] Albumin/Globulin Ratio 1.2 1.1 - 2.3 01/28/2022 2:02 PM T [facility] eGFR by CKD-EPI >90 >=90 mL/min/1.7 3 m2 01/28/2022 2:02 PM T [facility] Blood BLOOD SPECIMEN / Unknown Lab Venipuncture / Unknown 01/28/2022 1:09 PM CDT 01/28/2022 1:33 PM CDT Emma Vieira MD LAB - CHEMISTRY ORDERABLES Final Result [facility] [address] [place] [address], [facility] [phone] from Last 3 Months or Most Recently Relevant to Health Maintenance Insurance [facility] SELF PAY NO INSURANCE Member Subscriber Plan / Payer (Ef fective for All Dates) Name:Whit Segovia Member ID:Not on file Relation to Subscriber:Not on file Name:WHIT SEGOVIA Subscriber ID:Not on file (Home) Address: [address] [place] [id number] Payer ID:Not on file Group ID:Not on file Type:Self Pay Address: [place], [place] [facility] Care Teams Obiee Report Developer Relationship Specialty Start Date End Date Luis M Kirkpatrick MD [address] [address] PCP - General 11/26/21 Luis M Kirkpatrick MD [address] [address] 04/16/21 Lucho Casas MD [address] [place] [address] 10/07/18
--- OUTSIDE RECORDS SUMMARY | 2025-02-07 17:12 | XMS_ITS | Encounter Summary ---
Author Organization [facility] Address [address] [facility] [place] [address] Care Team Providers Care Battery Plate Assembler Name Role Phone Luis M Kirkpatrick MD Unavailable [phone] Lucho Casas MD Unavailable [phone] Luis M Kirkpatrick MD Primary Care Provider [phone] Reason for Visit * Reason Onset Date Comments MEDICATION REFILL 08/04/2022 Encounter Details Date Type Department Care Team (Late st Contact Info) Description 08/04/2022 Refill [facility], Diabetes and Metabolism [address] [place] [id number] Db Sue MD [address] [place] [address] MEDICATION REFILL Social History Tobacco Use Types Packs/Day Years Used Date Smoking Tobacco: Some Days Cigarettes 0.5 30 Smokeless Tobacco: Former Alcohol Use Standard Drinks/Week Comments Yes 0 (1 standard drink = 0.6 oz pur e alcohol) socially Comments No Sex and Gender Information Value Date Recorded Sex Assigned at Not on file Legal Sex Female 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 Gender Identity Not on file Sexual Orientation Not on file documented as of this encounter Miscellaneous Notes * Telephone Encounter - Silva Belle LPN - 08/04/2022 9:59 AM CST ERROR RER BEAM HOUSE documented in this encounter Plan of Treatment Not on file documented as of this encounter Visit Diagnoses Diagnosis Diabetes mellitus type 2, insulin dependent (HCC)- Primary Type II or unspecified type diabetes mellitus without mention of complication, not stated as uncontrolled documented in this encounter Care Teams Battery Plate Assembler Relationship Specialty Start Date End Date Luis M Kirkpatrick MD [address] [place] [address] PCP - General 11/26/21 Luis M Kirkpatrick MD [address] [place] [address] 04/16/21 Lucho Casas MD [address] [place] [address] 10/07/18 documented as of this encounter
--- OUTSIDE RECORDS SUMMARY | 2025-02-07 17:12 | XMS_ITS | Encounter Summary ---
Author Organization [facility] Health Address [address] [facility] [place] [address] Care Team Providers Care Cd Reactor Operator Name Role Phone Luis M Kirkpatrick MD Unavailable [phone] Lucho Casas MD Unavailable [phone] Luis M Kirkpatrick MD Primary Care Provider [phone] Encounter Details Date Type Department Care Team (Late st Contact Info) Description 04/14/2023 Telephone [facility] - Centralized Scheduling [address] [place] [address] Arelis Argueta MD [address] [place] [address] Social History Tobacco Use Types Packs/Day Years Used Date Smoking Tobacco: Some Days Cigarettes 0.5 30 Smokeless Tobacco: Former Alcohol Use Standard Drinks/Week Comments Yes 0 (1 standard drink = 0.6 oz pur e alcohol) socially Comments No Sex and Gender Information Value Date Recorded Sex Assigned at Not on file Legal Sex Female 1:22 PM RUBBER 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
--- OUTSIDE RECORDS SUMMARY | 2025-02-07 17:12 | XMS_ITS | Clinical Summary ---
Author Organization [facility] [address] [place] [address] Care Team Providers Care Practice Specialist Name Role Phone Juan Pablo Forbes DO Unavailable [phone] Connor Barton MD Unavailable [phone] No, Physician Primary Care Provider [phone] Allergies Active Allergy Reactions Criticality Noted Date Comments Bacitracin Vomiting Low 03/16/2018 Sulfamethoxazole-Trimethoprim Diarrhea,Vomiting Low 05/13/2022 Celecoxib Nausea & Vomiting Low 03/16/2018 Clindamycin Hives Medium 03/16/2018 Propoxyphene-Acetaminophen Nausea & Vomiting Low Medications blood glucose diagnostic stripIndication s:Type 2 diabetes mellitus with hyperglycemia, with long-term current use of insulin ([facility]) accu-check guide test strips test blood sugars five times every day dx:E11.65 insulin dependent 150 each 3 8 Active FLUoxetine (PROzac) 20 mg capsule Take 1 capsule (20 mg total) by mouth 2 (two) times a day 0 8 Active metFORMIN (GLUCOPHAGE) 1,000 mg tabletIndicatio ns:Type 2 diabetes mellitus with hyperglycemia, with long-term current use of insulin ([facility]) TAKE 1 TABLET(1000 MG) BY MOUTH TWICE [...] 03/17/2018 Assessment & Plan (08/20/2018 4:20 PM KEG RAISER): Diabetes is improving with treatment. Reviewed insulin [...] . Assessment & Plan (06/21/2018 7:03 AM KEG RAISER): Diabetes is improving with treatment. Reviewed insulin [...] . Assessment & Plan (05/23/2018 8:52 PM KEG RAISER): Diabetes is improving with treatment. A1c - [...] type 2, - patho physiology, short and snf complications of uncontrolled DM, diet and exercise [...] 03/17/2018 Assessment & Plan (08/20/2018 4:21 PM KEG RAISER): Hypertension is chronic, well controlled Continue current treatment regimen. Dietary sodium restriction. Weight loss. Regular aerobic exercise. Continue current medications. Blood pressure will be reassessed at the next regular appointment. Assessment & Plan (06/21/2018 7:04 AM KEG RAISER): Hypertension is chronic, well controlled Continue current [...] 03/17/2018 Assessment & Plan (08/20/2018 4:21 PM KEG RAISER): Pt. On statin therapy Nutrition counseling provided Advised to increase aerobic exercise Assessment & Plan (06/21/2018 7:04 AM KEG RAISER): Pt. On statin therapy Nutrition counseling provided Advised to increase aerobic exercise Assessment & Plan (03/17/2018 7:44 AM CDT): Pt. On statin therapy Nutrition counseling provided Advised to increase aerobic exercise Insulin pump status 03/17/2018 Assessment & Plan (08/20/2018 4:21 PM KEG RAISER): Have long acting , basal insulin ( [...] 02/18 Assessment & Plan (08/20/2018 4:21 PM KEG RAISER): Obesity is improving with lifestyle modifications. Discussed [...] discussed. Assessment & Plan (06/21/2018 7:04 AM KEG RAISER): Obesity is improving with lifestyle habits Discussed [...] Date Smoking Tobacco: Every Day Cigarettes 0.3 44.6 Started: 1981 Smokeless Tobacco: Never Tobacco Cessation:Ready [...] often do you attend chur ch or zoroastrian services? 1 to 4 times per year 02/17/2023 Do you belong to any clubs o r organizations such as congregation groups, unions, fraternal or athletic groups, or [...] place to sleep or slept in a longterm (including now)? No 02/17/2023 Personal Safety Answer Date Recorded Have you ever been in or are you currently in a harmful physical or emotional relationship or is someone making you feel afraid or unsafe? Denies 08/15/2023 Comments No Sex and Gender Information Value Date Recorded Sex Assigned at Not on file Legal Sex Female 6:30 AM KEG RAISER Gender Identity Not on file Sexual Orientation Not on file Obstetrics History Last Filed Vital Signs Vital Sign Reading Time Taken Comments Blood Pressure 153/90 08/16/2023 7:30 AM KEG RAISER Pulse 87 08/16/2023 7:30 AM KEG RAISER Temperature 36.8 C (98.2 F) 08/16/2023 7:30 AM KEG RAISER Respiratory Rate 18 08/16/2023 7:30 AM KEG RAISER Oxygen Saturation 99% 08/16/2023 7:30 AM KEG RAISER Inhaled Oxygen Concentration - - Weight 100.7 kg (222 lb 0.1 oz) 024 11:25 PM KEG RAISER Height 165.1 cm (5' 5) 08/14/2023 11:2 5 PM KEG RAISER Body Mass Index 36.94 08/14/2023 11:25 PM KEG RAISER Plan of Treatment Health Maintenance Due Date [...] Diagnosis Comments EGFR Routine 08/15/2023 4:36 AM KEG RAISER HEMOGLOBIN A1C STAT 08/14/2023 6:14 PM KEG RAISER POCT LIPID PANEL Routine 03/16/2018 1:50 PM CDT Type 2 diabetes mellitus with hyperglycemia, with long-term current use of insulin (HCC) from Last 3 Months or Most Recently Relevant to Health Maintenance Results * eGFR (08/15/2023 4:36 AM KEG RAISER) eGFR 118 mL/min/1. 73 m2 JER COYNE [...] last reviewed 2021. Blood 08/15/2023 4:36 AM KEG RAISER 08/15/2023 4:36 AM KEG RAISER Drew Early MD LAB BLOOD ORDERABLES Final R esult Performing Organization Address [facility] Co de Phone Number JER [address] [facility] [place] [address] * (ABNORMAL) Hemoglobin A1c (08/14/2023 6:14 PM KEG RAISER) Hgb A1C 11.5(H) 4.0 - 5.6 % [facility] Comment:Testing performed by : [address] [address] Estimated Average Glucose 283 mg/dL [facility] Comment: The ADA recommends reporting an estimated Average Glucose (eAG) with all Hemoglobin A1c results using the equation derived from a study of 507 normal and diabetic adults. Minority populations were underrepresented and children were not included. (Diabetes Care 31:5170-6975, 2008). The eAG is not equivalent to a fasting glucose. Testing performed by: [address] [address] Blood 08/14/2023 6:14 PM KEG RAISER 08/14/2023 6:15 PM KEG RAISER Luis Fernando Barragan DO LAB BLOOD ORDERABLES Final Result Performing Organization Address [facility] Co de Phone Number [facility] [address] [facility] [place] [address] * POCT lipid panel (03/16/2018 1:50 PM [...] Advance Directives For more information, please contact: [phone] * Full Code (Latest Code Status on File) Date Activated Date Inactivated Comments 08/14/2023 11:22 PM 08/16/2023 3:36 PM * Full Code Date Activated Date Inactivated Comments 02/16/2023 10:52 PM 02/22/2023 5:12 PM Care Teams Practice Specialist Relationship Specialty Start Date End Date No, Physician PCP - General 08/14/23 Juan Pablo Forbes DO Internal Medicine 03/17/18 [place] [address] [address] [facility] [address] [place] [address] Consulting Physician Endocrinology 09/01/18
--- OUTSIDE RECORDS SUMMARY | 2025-02-07 17:12 | XMS_ITS | Encounter Summary ---
Author Organization [facility] Health Address [address] [place] [address] Care Team Providers Care Software Reverse Engineer Name Role Phone Luis M Kirkpatrick MD Primary Care Provider [phone] Lucho Casas MD Primary Care Provider [phone] Luis M Kirkpatrick MD Unavailable [phone] Lucho Casas MD Unavailable [phone] Luis M Kirkpatrick MD Primary Care Provider [phone] Reason for Visit * Reason Onset Date Comments Medication Prior Auth Request 01/24/2019 Encounter Details Date Type Department Care Team (Late st Contact Info) Description 01/24/2019 Telephone [facility]inology, Diabetes and Metabolism [address] [place] [address] Timo Us MD [address] [place] [address] Medication Prior Auth Request Social History Tobacco Use Types Packs/Day Years Used Date Smoking Tobacco: Never Smokeless Tobacco: Never Alcohol Use Standard Drinks/Week Comments Yes 0 (1 standard drink = 0.6 oz pur e alcohol) Comments Unknown Sex and Gender Information Value Date Recorded Sex Assigned at Not on file Legal Sex Female 1:22 PM AREA CLEANER Gender Identity Not on file Sexual Orientation [...] a PA for this Rx as well. [facility] [place] documented in this encounter Plan of Treatment Not on file documented as of this encounter Visit Diagnoses Not on filedocumented in this encounter Care Teams Software Reverse Engineer Relationship Specialty Start Date End Date Luis M Kirkpatrick MD [address] [place] [address] PCP - General 10/07/18 04/15/21 Lucho Casas MD [address] [place] [address] PCP - General 04/16/21 11/25/21 Luis M Kirkpatrick MD [address] [place] [address] PCP - General 11/26/21 Luis M Kirkpatrick MD [address] [place] [address] 04/16/21 Lucho Casas MD [address] [place] [address] 10/07/18 documented as of this encounter
--- OUTSIDE RECORDS SUMMARY | 2025-02-07 17:12 | XMS_ITS | Clinical Summary ---
Author Organization [facility] Address [address] [place] [address] Care Team Providers Care Leather Tooler Name Role Phone Unavailable Primary Care Provider Unavailabl e Social History Tobacco Use Types Packs/Day Years Used Date Smoking Tobacco: Never Assessed Comments Unknown Sex and Gender Information Value Date Recorded Sex Assigned at Not on file Legal Sex Female 9:24 AM TRAVELING PASSENGER AGENT Gender Identity Not on file Sexual Orientation [...]
--- OUTSIDE RECORDS SUMMARY | 2025-02-07 17:12 | XMS_ITS | Referral Summary ---
Author Organization [facility] Physician Office Building [address] [place] [id number] Care Team Providers Care Customer Advisor Name Role Phone Juan Pablo Forbes DO Unavailable [phone] Connor Barton MD Unavailable [phone] No, Physician Primary Care Provider [phone] Allergies Active Allergy Reactions Criticality Noted Date Comments Bacitracin Vomiting Low 03/16/2018 Sulfamethoxazole-Trimethoprim Diarrhea,Vomiting Low 05/13/2022 Celecoxib Nausea & Vomiting Low 03/16/2018 Clindamycin Hives Medium 03/16/2018 Propoxyphene-Acetaminophen Nausea & Vomiting Low Medications blood glucose diagnostic stripIndication s:Type 2 diabetes mellitus with hyperglycemia, with long-term current use of insulin ([facility]) accu-check guide test strips test blood sugars five times every day dx:E11.65 insulin dependent 150 each 3 8 Active FLUoxetine (PROzac) 20 mg capsule Take 1 capsule (20 mg total) by mouth 2 (two) times a day 0 8 Active metFORMIN (GLUCOPHAGE) 1,000 mg tabletIndicatio ns:Type 2 diabetes mellitus with hyperglycemia, with long-term current use of insulin ([facility]) TAKE 1 TABLET(1000 MG) BY MOUTH TWICE [...] 03/17/2018 Assessment & Plan (08/20/2018 4:20 PM CELLARS SUPERVISOR): Diabetes is improving with treatment. Reviewed [...] . Assessment & Plan (06/21/2018 7:03 AM CELLARS SUPERVISOR): Diabetes is improving with treatment. Reviewed [...] . Assessment & Plan (05/23/2018 8:52 PM CELLARS SUPERVISOR): Diabetes is improving with treatment. A1c [...] type 2, - patho physiology, short and senior living complications of uncontrolled DM, diet and exercise [...] 03/17/2018 Assessment & Plan (08/20/2018 4:21 PM CELLARS SUPERVISOR): Hypertension is chronic, well controlled Continue current treatment regimen. Dietary sodium restriction. Weight loss. Regular aerobic exercise. Continue current medications. Blood pressure will be reassessed at the next regular appointment. Assessment & Plan (06/21/2018 7:04 AM CELLARS SUPERVISOR): Hypertension is chronic, well controlled Continue [...] 03/17/2018 Assessment & Plan (08/20/2018 4:21 PM CELLARS SUPERVISOR): Pt. On statin therapy Nutrition counseling provided Advised to increase aerobic exercise Assessment & Plan (06/21/2018 7:04 AM CELLARS SUPERVISOR): Pt. On statin therapy Nutrition counseling provided Advised to increase aerobic exercise Assessment & Plan (03/17/2018 7:44 AM CDT): Pt. On statin therapy Nutrition counseling provided Advised to increase aerobic exercise Insulin pump status 03/17/2018 Assessment & Plan (08/20/2018 4:21 PM CELLARS SUPERVISOR): Have long acting , basal insulin [...] 02/18 Assessment & Plan (08/20/2018 4:21 PM CELLARS SUPERVISOR): Obesity is improving with lifestyle modifications. [...] discussed. Assessment & Plan (06/21/2018 7:04 AM CELLARS SUPERVISOR): Obesity is improving with lifestyle habits [...] often do you attend chur ch or denominational services? 1 to 4 times per year 02/17/2023 Do you belong to any clubs o r organizations such as sikhism groups, unions, fraternal or athletic groups, or [...] on file Legal Sex Female 6:30 AM CELLARS SUPERVISOR Gender Identity Not on file Sexual Orientation Not on file Last Filed Vital Signs Vital Sign Reading Time Taken Comments Blood Pressure 153/90 08/16/2023 7:30 AM CELLARS SUPERVISOR Pulse 87 08/16/2023 7:30 AM CELLARS SUPERVISOR Temperature 36.8 C (98.2 F) 08/16/2023 7:30 AM CELLARS SUPERVISOR Respiratory Rate 18 08/16/2023 7:30 AM CELLARS SUPERVISOR Oxygen Saturation 99% 08/16/2023 7:30 AM CELLARS SUPERVISOR Inhaled Oxygen Concentration - - Weight 100.7 kg (222 lb 0.1 oz) 024 11:25 PM CELLARS SUPERVISOR Height 165.1 cm (5' 5) 08/14/2023 11:2 5 PM CELLARS SUPERVISOR Body Mass Index 36.94 08/14/2023 11:25 PM CELLARS SUPERVISOR Plan of Treatment Not on file Procedures Procedure Name Priority Date/Time Associated Diagnosis Comments EGFR Routine 08/15/2023 4:36 AM CELLARS SUPERVISOR HEMOGLOBIN A1C STAT 08/14/2023 6:14 PM CELLARS SUPERVISOR POCT LIPID PANEL Routine 03/16/2018 1:50 PM CDT Type 2 diabetes mellitus with hyperglycemia, with long-term current use of insulin (HCC) from Last 3 Months or Most Recently Relevant to Health Maintenance Results * eGFR (08/15/2023 4:36 AM CELLARS SUPERVISOR) eGFR 118 mL/min/1. 73 m2 JER [...] last reviewed 2021. Blood 08/15/2023 4:36 AM CELLARS SUPERVISOR 08/15/2023 4:36 AM CELLARS SUPERVISOR Drew Early MD LAB BLOOD ORDERABLES Final R esult [facility] [id number] [facility] Department [place] [address] * (ABNORMAL) Hemoglobin A1c (08/14/2023 6:14 PM CELLARS SUPERVISOR) [facility] Hgb A1C 11.5(H) 4.0 - 5.6 % JER Comment:Testing performed by : [address] [address] Estimated Average Glucose 283 mg/dL JER Comment: The ADA recommends reporting an estimated Average Glucose (eAG) with all Hemoglobin A1c results using the equation derived from a study of 507 normal and diabetic adults. Minority populations were underrepresented and children were not included. (Diabetes Care 31:9447-0016, 2008). The eAG is not equivalent to a fasting glucose. Testing performed by: [address] [address] Blood 08/14/2023 6:14 PM CELLARS SUPERVISOR 08/14/2023 6:15 PM CELLARS SUPERVISOR us Luis Fernando Barragan DO LAB BLOOD ORDERABLES Final Result [facility] [id number] [facility] Department [place] [address] * POCT lipid panel (03/16/2018 1:50 PM [...] Indicated MDR gram neg/ESBL 05/16/2023 05/16/2023 Insurance [facility] Advance Directives For more information, please contact: [phone] * Full Code (Latest Code Status on File) Date Activated Date Inactivated Comments 08/14/2023 11:22 PM 08/16/2023 3:36 PM * Full Code Date Activated Date Inactivated Comments 02/16/2023 10:52 PM 02/22/2023 5:12 PM Care Teams Customer Advisor Relationship Specialty Start Date End Date No, Physician PCP - General 08/14/23 Juan Pablo Forbes DO Internal Medicine 03/17/18 [place] [id number] [facility] [address] [place] [address] Consulting Physician Endocrinology 09/01/18
--- OUTSIDE RECORDS SUMMARY | 2025-02-07 17:28 | XMS_ITS ---
Author Organization Unknown Plan of Treatment Description Planned Activity Planned Timing [facility] is a provider organization who partners directly with Health Plans and provides integrated primary care, behavioral health, and social service technician for an attributed population Letter encounter to patientTelephone encounter [place] 2024Jul 2024 Encounters Encounter Type Performer Location Encounter Date Encoun ter Notes virtual - - [id number] no notes Patient Care team information Name Category Status Period Participants - - Proposed period not known - - - Proposed period not known -
--- OUTSIDE RECORDS SUMMARY | 2025-02-07 17:29 | XMS_ITS | Continuity of Care Document ---
Author Organization [facility] Address [address] [place] [address] [place] [address] Phone Care Team Providers Care Motor Coach Driver Name Role Phone Gage Kaiser Unavailable Unavailable Procedures Procedure Date Eye Exam & Treatment Refraction Eye Exam, New Patient Advance Directives Directive Yes / No Effective Date File Name No Information Encounters Encounter Description Practice Location Reason(s) For Visit Diagnoses Date Provider Providers Copied on Encounter [facility], [address] [place] [address] [address], [place], [place], [id number], tel:[phone] [facility] No Information 8-201 0 Krishnasamy Gage. [address] [address], [place], [place], [facility], [place]. tel:[phone] [facility], [address] [place] [address] [address], [place], [place], [id number], tel:[phone] [facility] No Information 0-200 9 Krishnasamy Gage. [address] [facility] [address], [place], [address], [place]. tel:[phone] Family History Family Member Type Diagnosis Age At Onset No Information Payers Payer name Insurance type Covered republican ID Authortaylora bill(s) Medicaid [facility] [id number] Social History Type Description Quantity Date Captured [...]
--- NOTE | 2025-02-07 18:31 | ADMGEN ---
This patient, Whit Segovia, was admitted to [facility] Surg Room 328-01. Patient/family oriented to hospital policies and general routines including ID bracelet, bed and alarms, visiting hours, pain management, procedures, bathroom and other care routines, personal items, smoking policy, room service/diet, and visiting hours. Information on how to activate the Rapid Response Team has been discussed. Patient/Family are encouraged to report perceived risks to care and to ask questions if they do not understand what they are told or what they should do.
[2025-02-07] MEDS: HYDROcodone/acetaminophen (*CRX) 5-325 MG TABLET 1 TAB PO (18:46)
[2025-02-07 18:48] VITALS: BMI 32.6
[2025-02-07 18:53] VITALS: BP 151/67; PULSE 123; RESP 18; TEMP 36.3; O2SAT 96
[2025-02-07 20:12] LABS: Hematocrit 41.4 % (37.0-47.0); Hemoglobin 13.6 g/dL (12.0-15.0); Immature Granulocyte Percent A 0.5 % (0-0.5); Lymphocytes Absolute Auto 2.54 K/mm3 (0.9-3.2); Mean Corpuscular HGB Conc 32.9 g/dl (32-36); Mean Corpuscular Hemoglobin 27.6 pg (26-34); Mean Corpuscular Volume 84.0 fl (80-100); Nucleated Red Blood Cells Absolute Auto 0.000 K/mm3 (0.0-0.012); Nucleated Red Blood Cells Perc 0.0 % (0.0-0.2); Platelet Count Result 235 k/mm3 (150-375); Red Blood Count 4.93 M/mm3 (4.2-5.4); White Blood Count 19.0 K/mm3 (4.5-10.0)
[2025-02-07 20:21] LABS: Alanine Aminotransferase 13 U/L (6-35); Albumin Level 4.1 g/dL (3.5-5.1); Alkaline Phosphatase 85 U/L (38-126); Anion Gap 12 mmol/L (4-12); Aspartate Amino Transferase 19 U/L (14-36); Bilirubin,Total 0.8 mg/dL (0.2-1.3); Blood Urea Nitrogen 18 mg/dL (7-17); Calcium 9.4 mg/dL (8.4-10.2); Carbon Dioxide 26 mmol/L (22-30); Chloride 94 mmol/L (98-107); Estimated CRCL calculation 95 ml/min; Estimated Glomerular Filt Rate > 60; Glucose 330 mg/dL (65-110); Potassium 3.9 mmol/L (3.4-5.0); Sodium 132 mmol/L (137-145); Total Protein 7.5 g/dL (6.3-8.2)
--- NOTE | 2025-02-07 21:00 | ECG_ITS ---
Test Date: 2025-02-07 21:55:09 Measurements Intervals [place] Rate: 110 P: 60 NE: 181 QRS: 72 QRSD: 90 T: 56 QT: 342 QTc: 464 Interpretive Statements SINUS TACHYCARDIA NONSPECIFIC T-WAVE ABNORMALITY ABNORMAL ECG Compared to ECG 08/08/2024 23:23:24 No significant changes Electronically Signed On 02-08-2025 10:03:27 CDT by Eugene Jeong M.D.
[2025-02-07 21:14] LABS: Hemoglobin A1C 8.2 % (<5.7)
[2025-02-07] MEDS: cefTRIAXone 1 GM in SODIUM CHLORIDE 0.9% IV 50 ML 100 ML IVPB (21:51)
[2025-02-07] MEDS: SIMVASTATIN 20 MG TABLET PO (21:53)
[2025-02-07] MEDS: GABAPENTIN 300 MG CAPSULE PO (21:53)
[2025-02-07] MEDS: INSULIN ASPART (*BKC) 100 UNITS/ML SUB-Q (21:55)
[2025-02-07 22:00] VITALS: BP 144/88; PULSE 117; RESP 18; TEMP 36.4; O2SAT 93
[2025-02-07] MEDS: INSULIN GLARGINE (*BKC) 100 UNITS/ML 25 UNITS SUB-Q (22:01)
[2025-02-07 22:07] LABS: Procalcitonin 0.1 ng/mL
[2025-02-07] MEDS: MORPHINE SULFATE (*CRX) 4 MG/ML INJ IV PUSH (22:50)
[2025-02-07] MEDS: VANCOMYCIN 1,250 MG/NS 250 ML 1,250 MG/250 ML BAG 166.67 MG IVPB (22:52)
[2025-02-07 22:54] VITALS: PULSE 110
[2025-02-07] MEDS: SOTALOL HCL 80 MG TABLET PO (22:54)
[2025-02-08] VITALS (14 sets, daily range): BP systolic 102–141; BP diastolic 52–70; PULSE 74–106; RESP 14–18; TEMP 35.9–36.9; O2SAT 95–100
[2025-02-08] MEDS: VANCOMYCIN HCL 1,000 MG in SODIUM CHLORIDE 0.9% IV 250 ML 250 MG IVPB (00:22)
[2025-02-08] MEDS: SODIUM CHLORIDE 0.9% IV 1,000 ML 999 ML IV CONT ×2 (01:30→01:45)
[2025-02-08] MEDS: SODIUM CHLORIDE 0.9% IV 700 ML 999 ML IV CONT (02:30)
[2025-02-08] MEDS: SODIUM CHLORIDE 0.9% IV 1,000 ML 100 ML IV CONT (03:58)
--- NOTE | 2025-02-08 04:16 | PM.IMCN ---
Assessment and Plan Assessment and plan (1) Sepsis: Qualifiers: Sepsis type: sepsis due to unspecified organism Sepsis acute organ dysfunction status: without acute organ dysfunction Qualified Code(s): A41.9 - Sepsis, unspecified organism Code(s): A41.9 - Sepsis, unspecified organism Status: Acute (2) Abscess of groin, left: Code(s): L02.214 - Cutaneous abscess of groin Status: Acute (3) Type 2 diabetes mellitus with hyperglycemia, with long-term current use of insulin: Code(s): E11.65 - Type 2 diabetes mellitus with hyperglycemia; Z79.4 - halfway (current) use of insulin Status: Acute (4) Diarrhea: Qualifiers: Diarrhea type: unspecified type Qualified Code(s): R19.7 - Diarrhea, unspecified Code(s): R19.7 - Diarrhea, unspecified Status: Acute (5) Paroxysmal atrial fibrillation: Code(s): I48.0 - Paroxysmal atrial fibrillation Status: Acute (6) Snoring: Code(s): R06.83 - Snoring Status: Acute (7) Chronic anticoagulation: Code(s): Z79.01 - intermediate project manager (current) use of anticoagulants Status: Acute Plan Patient has sepsis due to infected hidradenitis suppurative with abscess and surrounding cellulitis of the left groin and labia. Sepsis criteria met with leukocytosis, tachycardia in the setting of cellulitis in abscess. Patient is on empiric antibiotic therapy with Rocephin and vancomycin. I ordered blood cultures the patient had already been placed on antibiotic therapy and had received a dose of antibiotics prior to cultures being obtained. Lactic acid and procalcitonin was normal. Will check CRP. 30 mL/kilos fluid bolus ordered. The patient was noted be tachycardic. EKG was performed to verify the patient was in sinus tachycardia and had not flipped into AFib. EKG verified sinus tachycardia sinus tachycardia improved after fluid administration. Will repeat his CBC and electrolyte panel in a.m.. Patient is NPO for I and D in a.m.. Patient does have poorly-controlled diabetes mellitus. She had not received her home Lantus prior to coming to the ER. Will provide patient's evening Lantus dose and will place patient on high-dose sliding scale insulin and mealtime bolus insulin once she is able to partake and diet. Hypoglycemia protocol has been ordered. A 1 C confirm the patient's diabetes is still uncontrolled at baseline. And patient is going to remain at increased risk of recurrent infections with poorly controlled diabetes. This is complicated by her history of hidradenitis suppurative. Given her history of recurrent abscesses excessively abscesses in the groin she is probably not the best patient to have on medications such as Jardiance and Invokana as they increase her risk of Kris's gangrene/necrotizing fasciitis. Currently LRINEC SCORE is 4 however CRP is not is a for complete calculation. Patient is tachycardic but currently is sinus tachycardia. Will resume patient's home sotalol. On discharge patient will need be placed on a different medication for chronic anticoagulation. Since her insurance will not pay for Eliquis we may need to have care coordination evaluate whether not her plan will pay for Xarelto or if she will need to be placed on Coumadin. HPI Date of Consult Consult date: 02/08/25 Requesting Physician: Jayden Mac MD Primary Care Provider: REFRIGERATION SERVICE TECHNICIAN PHYSICIAN Consult Narrative Reason for consult: Diabetes management Narrative: Whit Segovia is a 54 year old female with past medical history of paroxysmal AFib, chronic tobacco abuse, obesity, depression, poorly controlled diabetes mellitus on insulin therapy and hidradenitis suppurative with history of multiple abscesses who presents the hospital via direct admit from general surgeon's office due to developing new abscess in the left groin ongoing for the last 3 days. Patient reports that she has had multiple recurrent abscesses since she was a teenager. She developed diabetes at age 27. She has poorly controlled diabetes were lower last hemoglobin A1c within our system in July of 11.2%. He states that she was started on a Dexcom and had improvement in her glucose control with her recent A1c about 8 weeks ago of around 7.6 but she reports she had difficulty obtaining a Dexcom due to short supply with the pharmacy. She does now got her Dexcom back this past week. She reports that her glucoses have been running high near 300. She attributed this in part due to developing more abscesses. Patient had drainage of a left lower quadrant abdominal wall cyst with sinus tract by Dr. Mac December 2024 after having failure of antibiotic therapy outpatient. The patient reports that the area has been healing well but since that time she has developed 3 other small areas on her mons pubis which spontaneously opened and drained. She reports that she has had numerous such lesions in the past that open and drain on her own and resolve. She reports that she has been on antibiotic therapy pretty much continuously for the last 2 months. But approximately 3 days ago she developed an area in her left groin and labia that is become markedly swollen erythematous and markedly tender to touch. Areas become progressively more indurated and swollen. She reports that the area has been draining some serous fluid. He reports the pain is now radiating around to her buttock. She was having some night sweats the night prior to coming to the hospital. She denies any chills. She has been having some nausea and decreased appetite. She denies any vomiting. She has been having normal bowel movements. She reports that she does have history of paroxysmal AFib. She has not been having any palpitations chest pain or shortness of breath. She reports that she has not been on her Eliquis in about 3 months because her public age quit paying for Eliquis. She has not yet had follow-up with her county ordinary to discuss the need for change in anticoagulant. Review of Systems Review of Systems: 12 systems were reviewed with pertinent positives and negatives per HPI. Except as documented in the HPI, all other systems were reviewed and are negative. [facility] Past Medical History Medical History (Updated 02/08/25 @ 05:11 by Cleo Medrano DO) Chronic anticoagulation Paroxysmal atrial fibrillation Insulin dependent diabetes mellitus (2006) Pulmonary embolism Deep venous thrombosis Depression with anxiety Hyperlipidemia Hypertension Surgical History Surgical History (Updated 02/08/25 @ 04:58 by Cleo Medrano DO) Status post open reduction with internal fixation of fracture Right pinky fracture Hx of removal of cyst 01/06/25 Excision of left lower quadrant abdominal wall cyst with sinus tract and 12cm intermediate layered wound closure Dr. Mac History of dilation and curettage History of cholecystectomy History of tonsillectomy History of bilateral knee replacement 2004 Family History Family History Unknown Adopted Social History Social History (Updated 02/08/25 @ 05:04 by Cleo Medrano DO) Social History: The patient lives with her they have been together since 2009 in a been since 2014. She has a 30-year-old daughter.. 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 She has smoked 3-4 cigarettes a day since she was a teenager. She she drinks 1 alcoholic beverage a week. She uses medical marijuana gummies frequently. She denies any illicit substance use. Surrogate medical decision maker: Han Segovia, spouse. Code status: Full code. Smoking packs per day: 0.25 Smoking cigarettes per day: 5.0 Years smoked: 30 Smoking pack-years: 7.50 Smoking status: Current every day smoker Second hand tobacco smoke exposure: No Alcohol intake: current Drinks per week: 5 Substance use: current Substance use type: marijuana Other substance usage details: Gummies every once in awhile. Do You Feel Safe in your Home?: Yes Lack of Transportation: No Lack of Food: Never True Current Housing: I Have Housing Concerned About Future Housing: No Difficulty Paying Gas/Electric Bills: No Difficulty Paying for Meds: No Currently Unemployed: No Education: Bachelor's Degree Difficulty w/ Childcare or Family Care: No Living arrangements: with family Spiritual care concerns: No Meds Home Medications and Allergies Home Medications ?Medication ?Instructions ?Recorded ?Confirmed ?Type blood sugar diagnostic (OneTouch #100 ea 09/21/24 02/07/25 Rx Verio test strips) blood-glucose meter (OneTouch #1 ea 09/21/24 02/07/25 Rx Verio Flex Meter) insulin lispro 100 unit/mL See Rx Instructions .Route 10/19/24 02/07/25 Rx subcutaneous pen .COMPLEX #15 mL canagliflozin 300 mg tablet See Rx Instructions .Route 11/17/24 02/07/25 Rx (Invokana) .COMPLEX #90 tabs fluoxetine 20 mg capsule 20 mg PO DAILY #90 caps 11/17/24 02/07/25 Rx gabapentin 300 mg capsule 300 mg PO Q12H #180 caps 11/17/24 02/07/25 Rx insulin glargine 100 unit/mL (3 25 unit (0.25 mL) subcut QPM #15 mL 11/17/24 02/07/25 Rx mL) subcutaneous pen (Lantus Solostar U-100 Insulin) lisinopril 10 mg tablet 10 mg PO DAILY #90 tabs 11/17/24 02/07/25 Rx simvastatin 20 mg tablet 20 mg PO HS #90 tabs 11/17/24 02/07/25 Rx sotalol 80 mg tablet See Rx Instructions .Route 11/17/24 02/07/25 Rx .COMPLEX #180 tabs metformin 1,000 mg tablet 1,000 mg PO BID #180 tabs 12/13/24 02/07/25 Rx pen needle, diabetic 31 gauge x See Rx Instructions miscellaneous 12/13/24 02/07/25 Rx 5/16 (TRUEplus Pen Needle) .COMPLEX #100 ea blood-glucose sensor (Dexcom G7 #1 ea 01/11/25 02/07/25 Rx Sensor device) blood-glucose,supervisor assembly department,cont #1 ea 01/11/25 02/07/25 Rx (Dexcom G7 Wireless Sales Manager) Allergies Allergy/AdvReac Type Severity Reaction Status Date / Time clindamycin Allergy Unknown Hives / Verified 02/07/25 18:54 Red Face celecoxib AdvReac Mild Unknown Verified 02/07/25 18:54 propoxyphene AdvReac Unknown Nausea and Verified 02/07/25 18:54 Vomiting sulfamethoxazole AdvReac Unknown Vomiting Verified 02/07/25 18:54 trimethoprim AdvReac Unknown Vomiting Verified 02/07/25 18:54 hydrocodone (From Lortab) AdvReac Nausea and Verified 02/07/25 09:08 Vomiting Vital Signs Vital Signs - 24 hr 02/07/25 18:53 02/07/25 20:00 02/07/25 22:00 Temperature 97.3 F L 97.6 F Pulse Rate 123 H 117 H Respiratory Rate 18 18 Blood Pressure 151/67 H 144/88 H Pulse Oximetry 96 93 Oxygen Delivery Room Air 02/07/25 22:54 02/08/25 00:00 Temperature 97.6 F Pulse Rate 110 H 106 H Respiratory Rate 18 Blood Pressure 117/60 Pulse Oximetry 97 Oxygen Delivery Exam Narrative: Weight 89 kg BMI 32.7 Const: Other: Mildly ill-appearing, obese, appears stated age HENMT: Other: Head is normocephalic atraumatic, mucous membranes are tacky, crowded posterior oropharynx, no oral pharyngeal erythema Eyes: Other: Pupils are equal and reactive, no scleral icterus, no conjunctival pallor Neck: Other: No JVD, large neck circumference, no lymphadenopathy Resp: Other: Clear to auscultation bilaterally, no increased work of breathing Cardio: Other: Sinus tachycardia, 2+ bilateral radial and pedal pulses, no murmur GI: Other: Soft, nontender, nondistended, positive bowel sounds : Other: Erythema and induration of the left groin extending into the left labia with bilateral shallow ulceration with serous drainage, left inguinal lymphadenopathy Skin: Other: Warmth and erythema of the left groin and left labia with serous drainage is mentioned above, increased warmth Neuro: Other: Alert orient x4, speech is clear, no facial asymmetry, moves all extremities equally Extrem: Other: No clubbing, cyanosis or edema, no foot wounds, decreased range of motion of the right pinky Psych: Other: Appropriate mood and affect, pleasant and cooperative, judgment and insight intact Results Labs 02/07/25 20:06 02/07/25 20:06 Labs: Laboratory Tests 02/07/25 20:06 02/07/25 20:06 02/07/25 02/07/25 02/07/25 18:47 20:06 21:09 WBC 19.0 H RBC 4.93 Hgb 13.6 Hct 41.4 MCV 84.0 MCH 27.6 MCHC 32.9 RDW 13.7 Plt Count 235 D MPV 10.0 Immature Gran % (Auto) 0.5 Neut % (Auto) 76.4 H Lymph % (Auto) 13.3 L [place] % (Auto) 9.2 H Eos % (Auto) 0.4 Baso % (Auto) 0.2 Lymph # (Auto) 2.54 [place] # (Auto) 1.8 H Eos # (Auto) 0.1 Baso # (Auto) 0.0 Abs Immat Gran (auto) 0.10 H Absolute Neuts (auto) 14.5 H Absolute Nucleated RBC 0.000 Nucleated RBC % 0.0 Sodium 132 L Potassium 3.9 Chloride 94 L Carbon Dioxide 26 Anion Gap 12 BUN 18 H Creatinine 0.63 L Estim Creat Clear Calc 95 Estimated GFR > 60 Glucose 330 H POC Capillary Glucose 299 H 295 H Hemoglobin A1c 8.2 H Lactic Acid Calcium 9.4 Total Bilirubin 0.8 AST 19 ALT 13 Alkaline Phosphatase 85 Total Protein 7.5 Albumin 4.1 Procalcitonin 02/07/25 21:31 WBC RBC Hgb Hct MCV MCH MCHC RDW Plt Count MPV Immature Gran % (Auto) Neut % (Auto) Lymph % (Auto) [place] % (Auto) Eos % (Auto) Baso % (Auto) Lymph # (Auto) [place] # (Auto) Eos # (Auto) Baso # (Auto) Abs Immat Gran (auto) Absolute Neuts (auto) Absolute Nucleated RBC Nucleated RBC % Sodium Potassium Chloride Carbon Dioxide Anion Gap BUN Creatinine Estim Creat Clear Calc Estimated GFR Glucose POC Capillary Glucose Hemoglobin A1c Lactic Acid 1.1 Calcium Total Bilirubin AST ALT Alkaline Phosphatase Total Protein Albumin Procalcitonin 0.1 Quality VTE Prophylaxis VTE prophylaxis: pharmacologic ordered (Lovenox 40 mg subQ daily. (to be started once okay with primary service)) Hospitalist MIPS Advance Care Plan I have confirmed that the patient's Advanced Care Plan is present, code status is documented, or surrogate decision maker is listed in patient medical record.: Yes Medication Reconciliation I have utilized all available resources to obtain, update and review the patients current medications (includes all prescriptions, OTC, herbals, cannabis, and nutritional supplements).: Yes
[2025-02-08 06:04] LABS: Hematocrit 38.8 % (37.0-47.0); Hemoglobin 12.0 g/dL (12.0-15.0); Immature Granulocyte Percent A 0.5 % (0-0.5); Lymphocytes Absolute Auto 2.41 K/mm3 (0.9-3.2); Mean Corpuscular HGB Conc 30.9 g/dl (32-36); Mean Corpuscular Hemoglobin 27.6 pg (26-34); Mean Corpuscular Volume 89.2 fl (80-100); Nucleated Red Blood Cells Absolute Auto 0.000 K/mm3 (0.0-0.012); Nucleated Red Blood Cells Perc 0.0 % (0.0-0.2); Platelet Count Result 203 k/mm3 (150-375); Red Blood Count 4.35 M/mm3 (4.2-5.4); White Blood Count 17.1 K/mm3 (4.5-10.0)
[2025-02-08 06:31] LABS: Blood Urea Nitrogen 14 mg/dL (7-17); Calcium 8.6 mg/dL (8.4-10.2); Carbon Dioxide 26 mmol/L (22-30); Chloride 101 mmol/L (98-107); Estimated CRCL calculation 123 ml/min; Estimated Glomerular Filt Rate > 60; Glucose 195 mg/dL (65-110); Potassium 3.8 mmol/L (3.4-5.0)
[2025-02-08 07:00] LABS: Anion Gap 7 mmol/L (4-12); CRP 12.9 mg/dL (<1.0); Sodium 134 mmol/L (137-145)
[2025-02-08] MEDS: INSULIN ASPART (*BKC) 100 UNITS/ML 9 UNITS SUB-Q (08:41)
[2025-02-08] MEDS: GABAPENTIN 300 MG CAPSULE PO ×2 (08:41→21:56)
[2025-02-08] MEDS: SOTALOL HCL 80 MG TABLET PO ×2 (08:41→21:56)
--- NOTE | 2025-02-08 09:33 | P.PNIM_ITS ---
Progress Note: A&P Assessment and Plan (1) Sepsis: Qualifiers: Sepsis acute organ dysfunction status: without acute organ dysfunction Sepsis type: sepsis due to unspecified organism Qualified Code(s): A41.9 - S epsis, unspecified organism Code(s): A41.9 - Sepsis, unspecified organism Status: Acute (2) Abscess of groin, left: Code(s): L02.214 - Cutaneous abscess of groin Status: Acute (3) Type 2 diabetes mellitus with hyperglycemia, with long-term current use of insulin: Code(s): E11.65 - Type 2 diabetes mellitus with hyperglycemia; Z79.4 - retirement (current) use of insulin Status: Acute (4) Diarrhea: Qualifiers: Diarrhea type: unspecified type Qualified Code(s): R19.7 - Diarrhea, unspecified Code(s): R19.7 - Diarrhea, unspecified Status: Acute (5) Paroxysmal atrial fibrillation: Code(s): I48.0 - Paroxysmal atrial fibrillation Status: Acute (6) Snoring: Code(s): R06.83 - Snoring Status: Acute (7) Chronic anticoagulation: Code(s): Z79.01 - 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 Sepsis criteria met with leukocytosis, tachycardia in the setting of cellulitis in abscess. Continue with Rocephin and vancomycin. blood cultures wound culture Consult Wound Care patient is NPO for I and D in the afternoon Uncontrolled type 2 diabetes Continue Lantus and lispro short-acting and sliding scale Hypoglycemic protocol was initiated Of his medication to control glucose a target range Prazosin AFib Continue sotalol. her insurance will not pay for Eliquis Consult care coordination evaluate whether not her plan will pay for Xarelto or if she will need to be placed on Coumadin. Subjective Date/time seen: 02/08/25 09:33 Interval history: Patient still have left groin pain worse with movement Patient is afebrile, blood pressure stable Patient leukocytosis 17,100 diet is trending down Patient denies fever, chills, abdomen pain nausea vomiting diarrhea Exam Narrative: GENERAL: Pleasant, in no acute distress. Well-nourished. - EYES: EOMI. Anicteric. - HENT: Moist mucous membranes. - LUNGS: Clear to auscultation bilateral ly, no wheezing, rhonchi, or rales. - CARDIOVASCULAR: Regular rate and rhyth m. No murmur. No JVD. - ABDOMEN: Soft, non-tender and non-dist ended. No palpable masses. - EXTREMITIES: No edema. Peripheral puls es 2+. Non-tender. - NEUROLOGIC: No focal neurological defi cits. CN II-XII grossly intact. - PSYCHIATRIC: Awake, Alert and oriented x 3. Appropriate mood and affect. - SKIN: Left labia abscess, skin red an d swelling around abscess - LYMPH: No cervical lymphadenopathy. Objective Data Vital Signs Vital Signs: Vital Signs - 24 hr 02/07/25 18:53 02/07/25 20:00 02/07/25 22:00 Temperature 97.3 F L 97.6 F Pulse Rate 123 H 117 H Respiratory Rate 18 18 Blood Pressure 151/67 H 144/88 H Pulse Oximetry 96 93 Oxygen Delivery Room Air 02/07/25 22:54 02/08/25 00:00 02/08/25 06:00 Temperature 97.6 F 97.8 F Pulse Rate 110 H 106 H 105 H Respiratory Rate 18 18 Blood Pressure 117/60 141/62 H Pulse Oximetry 97 95 Oxygen Delivery 02/08/25 08:00 02/08/25 08:41 Temperature Pulse Rate 98 Respiratory Rate Blood Pressure Pulse Oximetry Oxygen Delivery Room Air Intake/Output Intake/Output: Intake & Output 02/05/25 02/06/25 02/07/25 02/08/25 23:59 23:59 23:59 23:59 Intake Total 2280.6 Balance 2280.6 Meds/Results Medications: Active Medications Generic Name Dose Route Start Last Admin Trade Name Freq PRN Reason Stop Dose Admin Acetaminophen 1,000 mg 02/07/25 16:39 Acetaminophen 500 Mg Tablet PO Q6H PRN Mild Pain (1-3) or Fever Hydrocodone Bitart/Acetaminophen 1 tab 02/07/25 16:39 02/07/25 18:46 Hydrocodone/Acetaminophen (*Crx) 5-325 Mg Tablet PO 1 tab Q4H PRN Administration Pain Rated 4-6 Dextrose 12.5 gm 02/07/25 20:57 Dextrose 50% 25 Gm/50 Ml Syringe IV PUSH PRN PRN Hypoglycemia Protocol Fluoxetine HCl 20 mg 02/08/25 09:00 02/08/25 08:41 Fluoxetine Hcl 20 Mg Capsule PO 20 mg DAILY SYLVIE Administration Gabapentin 300 mg 02/07/25 21:00 02/08/25 08:41 Gabapentin 300 Mg Capsule PO 300 mg Q12H SYLVIE Administration Glucagon 1 mg 02/07/25 20:57 Glucagon For Inj 1 Mg Vial IM PRN PRN Hypoglycemia Protocol Glucose 15 gm 02/07/25 20:57 Glucose Oral Gel 15 Gm Of Glucse In 37.5 Gm Tube PO PRN PRN Hypoglycemia Protocol Ceftriaxone Sodium 1 gm/ 50 mls @ 100 mls/hr 02/07/25 18:00 02/07/25 21:51 Sodium Chloride IVPB 100 mls/hr Q24H SYLVIE Administration Sodium Chloride 1,000 mls @ 100 mls/hr 02/07/25 23:55 02/08/25 03:58 Normal Saline Iv IV CONT 100 mls/hr .Q10H SYLVIE Administration Vancomycin HCl 1,500 mg in 500 mls @ 250 mls/hr 02/08/25 10:00 Vancomycin 1,500 Mg/Ns 500 Ml IVPB Q12H SYLVIE Dextrose 1,000 mls @ 100 mls/hr 02/07/25 20:57 Dextrose 5% 1,000 Ml IVPB PRN PRN Hypoglycemia Protocol Insulin Aspart 9 units 02/08/25 08:00 02/08/25 08:41 Insulin Aspart (*Bkc) 100 Units/Ml 0.1 units/kg (9 units) 9 units SUB-Q Administration TIDWM [facility] Insulin Aspart 2 - 4 units 02/07/25 21:00 02/07/25 21:55 Insulin Aspart (*Bkc) 100 Units/Ml SUB-Q 2 units HS [facility] Administration Protocol Insulin Aspart 4 - 8 units 02/08/25 08:00 02/08/25 08:39 Insulin Aspart (*Bkc) 100 Units/Ml SUB-Q Not Given TIDWM [facility] Protocol Insulin Glargine 25 units 02/08/25 18:00 Insulin Glargine (*Bkc) 100 Units/Ml SUB-Q QPM [facility] Lisinopril 10 mg 02/08/25 09:00 02/08/25 08:42 Lisinopril 10 Mg Tablet PO Not Given DAILY [facility] Metformin HCl 1,000 mg 02/08/25 09:00 02/08/25 08:43 Metformin Hcl 500 Mg Tablet PO Not Given BID SYLVIE Morphine Sulfate 4 mg 02/07/25 16:39 02/07/25 22:50 Morphine Sulfate (*Crx) 4 Mg/Ml Inj IV PUSH 4 mg Q4H PRN Administration Pain Rated 7-10 Ondansetron HCl 4 mg 02/07/25 16:39 Ondansetron Inj 4 Mg/2 Ml Vial IV PUSH Q4H PRN Nausea And Vomiting Oxycodone/Acetaminophen 1 tablet 02/07/25 16:39 Oxycodone/Acetaminophen (*Crx) 5-325 Mg Tablet PO Q4H PRN Pain Rated 7-10 Simvastatin 20 mg 02/07/25 21:00 02/07/25 21:53 Simvastatin 20 Mg Tablet PO 20 mg HS SYLVIE Administration Sotalol HCl 80 mg 02/07/25 21:15 02/08/25 08:41 Sotalol Hcl 80 Mg Tablet PO 80 mg Q12HR SYLVIE Administration Labs Labs: Laboratory Results - last 24 hr 02/07/25 02/07/25 02/07/25 18:47 20:06 21:09 WBC 19.0 H RBC 4.93 Hgb 13.6 Hct 41.4 MCV 84.0 MCH 27.6 MCHC 32.9 RDW 13.7 Plt Count 235 D MPV 10.0 Immature Gran % (Auto) 0.5 Neut % (Auto) 76.4 H Lymph % (Auto) 13.3 L [place] % (Auto) 9.2 H Eos % (Auto) 0.4 Baso % (Auto) 0.2 Lymph # (Auto) 2.54 [place] # (Auto) 1.8 H Eos # (Auto) 0.1 Baso # (Auto) 0.0 Abs Immat Gran (auto) 0.10 H Absolute Neuts (auto) 14.5 H Absolute Nucleated RBC 0.000 Nucleated RBC % 0.0 Sodium 132 L Potassium 3.9 Chloride 94 L Carbon Dioxide 26 Anion Gap 12 BUN 18 H Creatinine 0.63 L Estim Creat Clear Calc 95 Estimated GFR > 60 Glucose 330 H POC Capillary Glucose 299 H 295 H Hemoglobin A1c 8.2 H Lactic Acid Calcium 9.4 Total Bilirubin 0.8 AST 19 ALT 13 Alkaline Phosphatase 85 C-Reactive Protein Total Protein 7.5 Albumin 4.1 Procalcitonin 02/07/25 02/08/25 02/08/25 21:31 05:43 07:46 WBC 17.1 H RBC 4.35 Hgb 12.0 Hct 38.8 MCV 89.2 D MCH 27.6 MCHC 30.9 L RDW 13.5 Plt Count 203 MPV 10.0 Immature Gran % (Auto) 0.5 Neut % (Auto) 74.6 H Lymph % (Auto) 14.1 L [place] % (Auto) 9.3 H Eos % (Auto) 1.3 Baso % (Auto) 0.2 Lymph # (Auto) 2.41 [place] # (Auto) 1.6 H Eos # (Auto) 0.2 Baso # (Auto) 0.0 Abs Immat Gran (auto) 0.09 H Absolute Neuts (auto) 12.7 H Absolute Nucleated RBC 0.000 Nucleated RBC % 0.0 Sodium 134 L Potassium 3.8 Chloride 101 Carbon Dioxide 26 Anion Gap 7 BUN 14 Creatinine 0.47 L Estim Creat Clear Calc 123 Estimated GFR > 60 Glucose 195 H POC Capillary Glucose 184 H Hemoglobin A1c Lactic Acid 1.1 Calcium 8.6 Total Bilirubin AST ALT Alkaline Phosphatase C-Reactive Protein 12.9 H Total Protein Albumin Procalcitonin 0.1
[2025-02-08] MEDS: VANCOMYCIN 1,500 MG/NS 500 ML 1,500 MG/500 ML BAG 250 MG IVPB ×2 (09:45→22:02)
--- NOTE | 2025-02-08 12:15 | P.PN_ITS ---
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 (2) Abscess of groin, left: Code(s): L02.214 - Cutaneous abscess of groin Status: Acute Assessment and Plan: Will go to the operating this afternoon for incision and drainage of the abscess. Continue IV antibiotics as ordered. (3) Sepsis: Qualifiers: Sepsis type: sepsis due to unspecified organism Sepsis acute organ dysfunction status: without acute organ dysfunction Qualified Code(s): A41.9 - Sepsis, unspecified organism Code(s): A41.9 - Sepsis, unspecified organism Status: Acute Assessment and Plan: White blood count down to 17,008. No tachycardia right now. No hypotension. Blood cultures drawn and results pending. Subjective Date/time seen: 02/08/25 12:15 Interval history: Patient still has pain in left groin. White blood count on admission was 19,000. It is down to 17,000 today. She is on IV antibiotics to include vancomycin and Rocephin. States that the abscess is now draining a little bit more. No fever. Tachycardia is better. Exam Skin: Other: Left groin crease abscess draining the more pus today. Still indurated and erythematous around the area. No necrotizing fasciitis changes noted. No crepitus to the tissue. Objective Data Vital Signs Vital Signs: Vital Signs - 24 hr 02/07/25 18:53 02/07/25 20:00 02/07/25 22:00 Temperature 36.3 C L 36.4 C Pulse Rate 123 H 117 H Respiratory Rate 18 18 Blood Pressure 151/67 H 144/88 H Pulse Oximetry 96 93 Oxygen Delivery Room Air 02/07/25 22:54 02/08/25 00:00 02/08/25 06:00 Temperature 36.4 C 36.6 C Pulse Rate 110 H 106 H 105 H Respiratory Rate 18 18 Blood Pressure 117/60 141/62 H Pulse Oximetry 97 95 Oxygen Delivery 02/08/25 08:00 02/08/25 08:41 Temperature Pulse Rate 98 Respiratory Rate Blood Pressure Pulse Oximetry Oxygen Delivery Room Air Intake/Output Intake/Output: Intake & Output 02/05/25 02/06/25 02/07/25 02/08/25 23:59 23:59 23:59 23:59 Intake Total 2280.6 Balance 2280.6 Meds/Results Medications: Active Medications Generic Name Dose Route Start Last Admin Trade Name Freq PRN Reason Stop Dose Admin Acetaminophen 1,000 mg 02/07/25 16:39 Acetaminophen 500 Mg Tablet PO Q6H PRN Mild Pain (1-3) or Fever Hydrocodone Bitart/Acetaminophen 1 tab 02/07/25 16:39 02/07/25 18:46 Hydrocodone/Acetaminophen (*Crx) 5-325 Mg Tablet PO 1 tab Q4H PRN Administration Pain Rated 4-6 Dextrose 12.5 gm 02/07/25 20:57 Dextrose 50% 25 Gm/50 Ml Syringe IV PUSH PRN PRN Hypoglycemia Protocol Fluoxetine HCl 20 mg 02/08/25 09:00 02/08/25 08:41 Fluoxetine Hcl 20 Mg Capsule PO 20 mg DAILY SYLVIE Administration Gabapentin 300 mg 02/07/25 21:00 02/08/25 08:41 Gabapentin 300 Mg Capsule PO 300 mg Q12H SYLVIE Administration Glucagon 1 mg 02/07/25 20:57 Glucagon For Inj 1 Mg Vial IM PRN PRN Hypoglycemia Protocol Glucose 15 gm 02/07/25 20:57 Glucose Oral Gel 15 Gm Of Glucse In 37.5 Gm Tube PO PRN PRN Hypoglycemia Protocol Ceftriaxone Sodium 1 gm/ 50 mls @ 100 mls/hr 02/07/25 18:00 02/07/25 21:51 Sodium Chloride IVPB 100 mls/hr Q24H SYLVIE Administration Sodium Chloride 1,000 mls @ 100 mls/hr 02/07/25 23:55 02/08/25 03:58 Normal Saline Iv IV CONT 100 mls/hr .Q10H SYLVIE Administration Vancomycin HCl 1,500 mg in 500 mls @ 250 mls/hr 02/08/25 10:00 02/08/25 09:45 Vancomycin 1,500 Mg/Ns 500 Ml IVPB 250 mls/hr Q12H SYLVIE Administration Dextrose 1,000 mls @ 100 mls/hr 02/07/25 20:57 Dextrose 5% 1,000 Ml IVPB PRN PRN Hypoglycemia Protocol Insulin Aspart 9 units 02/08/25 08:00 02/08/25 11:48 Insulin Aspart (*Bkc) 100 Units/Ml 0.1 units/kg (9 units) Not Given SUB-Q TIDWM [facility] Insulin Aspart 2 - 4 units 02/07/25 21:00 02/07/25 21:55 Insulin Aspart (*Bkc) 100 Units/Ml SUB-Q 2 units HS [facility] Administration Protocol Insulin Aspart 4 - 8 units 02/08/25 08:00 02/08/25 11:54 Insulin Aspart (*Bkc) 100 Units/Ml SUB-Q Not Given TIDWM [facility] Protocol Insulin Glargine 25 units 02/08/25 18:00 Insulin Glargine (*Bkc) 100 Units/Ml SUB-Q QPM [facility] Lisinopril 10 mg 02/08/25 09:00 02/08/25 08:42 Lisinopril 10 Mg Tablet PO Not Given DAILY [facility] Metformin HCl 1,000 mg 02/08/25 09:00 02/08/25 08:43 Metformin Hcl 500 Mg Tablet PO Not Given BID [facility] Morphine Sulfate 4 mg 02/07/25 16:39 02/07/25 22:50 Morphine Sulfate (*Crx) 4 Mg/Ml Inj IV PUSH 4 mg Q4H PRN Administration Pain Rated 7-10 Ondansetron HCl 4 mg 02/07/25 16:39 Ondansetron Inj 4 Mg/2 Ml Vial IV PUSH Q4H PRN Nausea And Vomiting Oxycodone/Acetaminophen 1 tablet 02/07/25 16:39 Oxycodone/Acetaminophen (*Crx) 5-325 Mg Tablet PO Q4H PRN Pain Rated 7-10 Simvastatin 20 mg 02/07/25 21:00 02/07/25 21:53 Simvastatin 20 Mg Tablet PO 20 mg HS [facility] Administration Sotalol HCl 80 mg 02/07/25 21:15 02/08/25 08:41 Sotalol Hcl 80 Mg Tablet PO 80 mg Q12HR [facility] Administration Labs Labs: Laboratory Results - last 24 hr 02/07/25 02/07/25 02/07/25 18:47 20:06 21:09 WBC 19.0 H RBC 4.93 Hgb 13.6 Hct 41.4 MCV 84.0 MCH 27.6 MCHC 32.9 RDW 13.7 Plt Count 235 D MPV 10.0 Immature Gran % (Auto) 0.5 Neut % (Auto) 76.4 H Lymph % (Auto) 13.3 L [place] % (Auto) 9.2 H Eos % (Auto) 0.4 Baso % (Auto) 0.2 Lymph # (Auto) 2.54 [place] # (Auto) 1.8 H Eos # (Auto) 0.1 Baso # (Auto) 0.0 Abs Immat Gran (auto) 0.10 H Absolute Neuts (auto) 14.5 H Absolute Nucleated RBC 0.000 Nucleated RBC % 0.0 Sodium 132 L Potassium 3.9 Chloride 94 L Carbon Dioxide 26 Anion Gap 12 BUN 18 H Creatinine 0.63 L Estim Creat Clear Calc 95 Estimated GFR > 60 Glucose 330 H POC Capillary Glucose 299 H 295 H Hemoglobin A1c 8.2 H Lactic Acid Calcium 9.4 Total Bilirubin 0.8 AST 19 ALT 13 Alkaline Phosphatase 85 C-Reactive Protein Total Protein 7.5 Albumin 4.1 Procalcitonin 02/07/25 02/08/25 02/08/25 21:31 05:43 07:46 WBC 17.1 H RBC 4.35 Hgb 12.0 Hct 38.8 MCV 89.2 D MCH 27.6 MCHC 30.9 L RDW 13.5 Plt Count 203 MPV 10.0 Immature Gran % (Auto) 0.5 Neut % (Auto) 74.6 H Lymph % (Auto) 14.1 L [place] % (Auto) 9.3 H Eos % (Auto) 1.3 Baso % (Auto) 0.2 Lymph # (Auto) 2.41 [place] # (Auto) 1.6 H Eos # (Auto) 0.2 Baso # (Auto) 0.0 Abs Immat Gran (auto) 0.09 H Absolute Neuts (auto) 12.7 H Absolute Nucleated RBC 0.000 Nucleated RBC % 0.0 Sodium 134 L Potassium 3.8 Chloride 101 Carbon Dioxide 26 Anion Gap 7 BUN 14 Creatinine 0.47 L Estim Creat Clear Calc 123 Estimated GFR > 60 Glucose 195 H POC Capillary Glucose 184 H Hemoglobin A1c Lactic Acid 1.1 Calcium 8.6 Total Bilirubin AST ALT Alkaline Phosphatase C-Reactive Protein 12.9 H Total Protein Albumin Procalcitonin 0.1 02/08/25 02/08/25 09:35 11:34 WBC RBC Hgb Hct MCV MCH MCHC RDW Plt Count MPV Immature Gran % (Auto) Neut % (Auto) Lymph % (Auto) [place] % (Auto) Eos % (Auto) Baso % (Auto) Lymph # (Auto) [place] # (Auto) Eos # (Auto) Baso # (Auto) Abs Immat Gran (auto) Absolute Neuts (auto) Absolute Nucleated RBC Nucleated RBC % Sodium Potassium Chloride Carbon Dioxide Anion Gap BUN Creatinine Estim Creat Clear Calc Estimated GFR Glucose POC Capillary Glucose 143 H 107 H Hemoglobin A1c Lactic Acid Calcium Total Bilirubin AST ALT Alkaline Phosphatase C-Reactive Protein Total Protein Albumin Procalcitonin
--- NOTE | 2025-02-08 12:15 | WPDHPUPDATE1 ---
History and Physical Update Update Date/Time: 02/08/25 12:15 History and Physical has been reviewed, including an updated exam of the patient. There are NO changes in the patient's condition. Risks, benefits, and alternatives have been discussed and questions answered. Patient agrees to proceed with procedure.
--- NOTE | 2025-02-08 13:44 | WPDANESEPPF ---
Anes - Initial Pre Proc Eval Procedure: Operation Date: 02/08/25 14:30 Proposed Procedures p Incision And Drainage Left Groin Abscess - Lauren Russo MD Date/Time: 02/08/25 13:44 Surgeon: Jayden Mac MD Pre Op Diagnosis: abscess with cellulitis Patient Data Age: 54 Gender: F Height: 1.65 m Weight: 89 kg Last Vital Signs Temp 97.8 F 02/08/25 06:00 Pulse 98 02/08/25 08:41 Resp 18 02/08/25 06:00 BP 141/62 H 02/08/25 06:00 Pulse Ox 95 02/08/25 06:00 O2 Del Method Room Air 02/08/25 08:00 Allergies Allergy/AdvReac Type Severity Reaction Status Date / Time clindamycin Allergy Unknown Hives / Verified 02/08/25 13:29 Red Face celecoxib AdvReac Mild Unknown Verified 02/08/25 13:29 propoxyphene AdvReac Unknown Nausea and Verified 02/08/25 13:29 Vomiting sulfamethoxazole AdvReac Unknown Vomiting Verified 02/08/25 13:29 trimethoprim AdvReac Unknown Vomiting Verified 02/08/25 13:29 hydrocodone (From Lortab) AdvReac Nausea and Verified 02/08/25 13:29 Vomiting Home Medications ?Medication ?Instructions ?Recorded ?Confirmed ?Type blood sugar diagnostic (OneTouch #100 ea 09/21/24 02/07/25 Rx Verio test strips) blood-glucose meter (OneTouch #1 ea 09/21/24 02/07/25 Rx Verio Flex Meter) insulin lispro 100 unit/mL See Rx Instructions .Route 10/19/24 02/07/25 Rx subcutaneous pen .COMPLEX #15 mL canagliflozin 300 mg tablet See Rx Instructions .Route 11/17/24 02/07/25 Rx (Invokana) .COMPLEX #90 tabs fluoxetine 20 mg capsule 20 mg PO DAILY #90 caps 11/17/24 02/07/25 Rx gabapentin 300 mg capsule 300 mg PO Q12H #180 caps 11/17/24 02/07/25 Rx insulin glargine 100 unit/mL (3 25 unit (0.25 mL) subcut QPM #15 mL 11/17/24 02/07/25 Rx mL) subcutaneous pen (Lantus Solostar U-100 Insulin) lisinopril 10 mg tablet 10 mg PO DAILY #90 tabs 11/17/24 02/07/25 Rx simvastatin 20 mg tablet 20 mg PO HS #90 tabs 11/17/24 02/07/25 Rx sotalol 80 mg tablet See Rx Instructions .Route 11/17/24 02/07/25 Rx .COMPLEX #180 tabs metformin 1,000 mg tablet 1,000 mg PO BID #180 tabs 12/13/24 02/07/25 Rx pen needle, diabetic 31 gauge x See Rx Instructions miscellaneous 12/13/24 02/07/25 Rx 5/16 (TRUEplus Pen Needle) .COMPLEX #100 ea blood-glucose sensor (Dexcom G7 #1 ea 01/11/25 02/07/25 Rx Sensor device) blood-glucose,senior clinical data analyst,cont #1 ea 01/11/25 02/07/25 Rx (Dexcom G7 Boat Rental Clerk) Laboratory Tests 02/07/25 02/07/25 02/07/25 18:47 20:06 21:09 WBC 19.0 H K/mm3 (4.5-10.0) RBC 4.93 M/mm3 (4.2-5.4) Hgb 13.6 g/dL (12.0-15.0) Hct 41.4 % (37.0-47.0) MCV 84.0 fl (80-100) MCH 27.6 pg (26-34) MCHC 32.9 g/dl (32-36) RDW 13.7 % (11.5-14.5) Plt Count 235 D k/mm3 (150-375) MPV 10.0 fl (7.4-10.4) Immature Gran % (Auto) 0.5 % (0-0.5) Neut % (Auto) 76.4 H % (45.5-73.1) Lymph % (Auto) 13.3 L % (18.3-44.2) [place] % (Auto) 9.2 H % (2.6-8.5) Eos % (Auto) 0.4 % (0-4.4) Baso % (Auto) 0.2 % (0.2-1.2) Lymph # (Auto) 2.54 K/mm3 (0.9-3.2) [place] # (Auto) 1.8 H K/mm3 (0.1-0.6) Eos # (Auto) 0.1 K/mm3 (0-0.3) Baso # (Auto) 0.0 K/mm3 (0.0-0.1) Abs Immat Gran (auto) 0.10 H K/mm3 (0.00-0.031) Absolute Neuts (auto) 14.5 H K/mm3 (1.3-6.7) Absolute Nucleated RBC 0.000 K/mm3 (0.0-0.012) Nucleated RBC % 0.0 % (0.0-0.2) Sodium 132 L mmol/L (137-145) Potassium 3.9 mmol/L (3.4-5.0) Chloride 94 L mmol/L (98-107) Carbon Dioxide 26 mmol/L (22-30) Anion Gap 12 mmol/L (4-12) BUN 18 H mg/dL (7-17) Creatinine 0.63 L mg/dL (0.7-1.0) Estim Creat Clear Calc 95 ml/min Estimated GFR > 60 (59 - ) Glucose 330 H mg/dL (65-110) POC Capillary Glucose 299 H mg/dl 295 H mg/dl (65-105) (65-105) Hemoglobin A1c 8.2 H % (<5.7) Lactic Acid Calcium 9.4 mg/dL (8.4-10.2) Total Bilirubin 0.8 mg/dL (0.2-1.3) AST 19 U/L (14-36) ALT 13 U/L (6-35) Alkaline Phosphatase 85 U/L (38-126) C-Reactive Protein Total Protein 7.5 g/dL (6.3-8.2) Albumin 4.1 g/dL (3.5-5.1) Procalcitonin 02/07/25 02/08/25 02/08/25 21:31 05:43 07:46 WBC 17.1 H K/mm3 (4.5-10.0) RBC 4.35 M/mm3 (4.2-5.4) Hgb 12.0 g/dL (12.0-15.0) Hct 38.8 % (37.0-47.0) MCV 89.2 D fl (80-100) MCH 27.6 pg (26-34) MCHC 30.9 L g/dl (32-36) RDW 13.5 % (11.5-14.5) Plt Count 203 k/mm3 (150-375) MPV 10.0 fl (7.4-10.4) Immature Gran % (Auto) 0.5 % (0-0.5) Neut % (Auto) 74.6 H % (45.5-73.1) Lymph % (Auto) 14.1 L % (18.3-44.2) [place] % (Auto) 9.3 H % (2.6-8.5) Eos % (Auto) 1.3 % (0-4.4) Baso % (Auto) 0.2 % (0.2-1.2) Lymph # (Auto) 2.41 K/mm3 (0.9-3.2) [place] # (Auto) 1.6 H K/mm3 (0.1-0.6) Eos # (Auto) 0.2 K/mm3 (0-0.3) Baso # (Auto) 0.0 K/mm3 (0.0-0.1) Abs Immat Gran (auto) 0.09 H K/mm3 (0.00-0.031) Absolute Neuts (auto) 12.7 H K/mm3 (1.3-6.7) Absolute Nucleated RBC 0.000 K/mm3 (0.0-0.012) Nucleated RBC % 0.0 % (0.0-0.2) Sodium 134 L mmol/L (137-145) Potassium 3.8 mmol/L (3.4-5.0) Chloride 101 mmol/L (98-107) Carbon Dioxide 26 mmol/L (22-30) Anion Gap 7 mmol/L (4-12) BUN 14 mg/dL (7-17) Creatinine 0.47 L mg/dL (0.7-1.0) Estim Creat Clear Calc 123 ml/min Estimated GFR > 60 (59 - ) Glucose 195 H mg/dL (65-110) POC Capillary Glucose 184 H mg/dl (65-105) Hemoglobin A1c Lactic Acid 1.1 mmol/L (0.7-2.0) Calcium 8.6 mg/dL (8.4-10.2) Total Bilirubin AST ALT Alkaline Phosphatase C-Reactive Protein 12.9 H mg/dL (<1.0) Total Protein Albumin Procalcitonin 0.1 ng/mL 02/08/25 02/08/25 02/08/25 09:35 11:34 13:22 WBC RBC Hgb Hct MCV MCH MCHC RDW Plt Count MPV Immature Gran % (Auto) Neut % (Auto) Lymph % (Auto) [place] % (Auto) Eos % (Auto) Baso % (Auto) Lymph # (Auto) [place] # (Auto) Eos # (Auto) Baso # (Auto) Abs Immat Gran (auto) Absolute Neuts (auto) Absolute Nucleated RBC Nucleated RBC % Sodium Potassium Chloride Carbon Dioxide Anion Gap BUN Creatinine Estim Creat Clear Calc Estimated GFR Glucose POC Capillary Glucose 143 H mg/dl 107 H mg/dl 102 mg/dl (65-105) (65-105) (65-105) Hemoglobin A1c Lactic Acid Calcium Total Bilirubin AST ALT Alkaline Phosphatase C-Reactive Protein Total Protein Albumin Procalcitonin Patient hx anesthesia problems: none Family hx anesthesia problems: none Results Review: All pre-operative results and documents have been reviewed as part of the pre-operative evaluation. [facility]LY [facility] Past Medical History Medical History Chronic anticoagulation Paroxysmal atrial fibrillation Insulin dependent diabetes mellitus (2006) Pulmonary embolism Deep venous thrombosis Depression with anxiety Hyperlipidemia Hypertension Surgical History Surgical History Status post open reduction with internal fixation of fracture Right pinky fracture Hx of removal of cyst 01/06/25 Excision of left lower quadrant abdominal wall cyst with sinus tract and 12cm intermediate layered wound closure Dr. Mac History of dilation and curettage History of cholecystectomy History of tonsillectomy History of bilateral knee replacement 2004 Family History Family History Unknown Adopted Social History Social History (Updated 02/08/25 @ 05:04 by Cleo Medrano DO) Social History: The patient lives with her they have been together since 2009 in a been since 2014. She has a 30-year-old daughter.. 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 She has smoked 3-4 cigarettes a day since she was a teenager. She she drinks 1 alcoholic beverage a week. She uses medical marijuana gummies frequently. She denies any illicit substance use. Surrogate medical decision maker: Han Segovia, spouse. Code status: Full code. Smoking packs per day: 0.25 Smoking cigarettes per day: 5.0 Years smoked: 30 Smoking pack-years: 7.50 Smoking status: Current every day smoker Second hand tobacco smoke exposure: No Alcohol intake: current Drinks per week: 5 Substance use: current Substance use type: marijuana Other substance usage details: Gummies every once in awhile. Do You Feel Safe in your Home?: Yes Lack of Transportation: No Lack of Food: Never True Current Housing: I Have Housing Concerned About Future Housing: No Difficulty Paying Gas/Electric Bills: No Difficulty Paying for Meds: No Currently Unemployed: No Education: Bachelor's Degree Difficulty w/ Childcare or Family Care: No Living arrangements: with family Spiritual care concerns: No Anes - Eval Final PreProcedure Day of Procedure 02/08/25 13:44 Patient weight: obese Lungs: normal air movement Airway: Mallampati scale class II and special considerations large neck Neurological: alert and oriented Last oral intake: >/= 8 hours ASA classification: III Emergent: no Anesthetic plan: proceed Anesthesia type and monitoring: general LMA and standard monitoring Results Review: All pre-operative results and documents have been reviewed as part of the pre-operative evaluation. P afib, DM w poor control fsbs 102, pt smokes 4-5 cigs/day. Informed Consent: The patient's anesthetic plan and its attendant risks and benefits were discussed with the patient/family/POA. Questions were solicited and answers provided to the satisfaction of the patient/family/POA.
[2025-02-08] MEDS: LACTATED RINGERS 1,000 ML 30 ML IV CONT (13:56)
--- NOTE | 2025-02-08 14:24 | WPDHPUPDATE1 ---
History and Physical Update Update Date/Time: 02/08/25 14:24 History and Physical has been reviewed, including an updated exam of the patient. There are NO changes in the patient's condition. Risks, benefits, and alternatives have been discussed and questions answered. Patient agrees to proceed with procedure.
--- NOTE | 2025-02-08 15:04 | P.OP_ITS ---
Procedure Note - Detailed Date of Procedure 02/08/25 Pre-op Diagnosis Left groin abscess with cellulitis Post-op Diagnosis Same Procedure Performed Incision and drainage of complex left groin abscess Surgeon Edgard Leal, DO Anesthesia MAC and Local (0.5% bupivacaine with epinephrine) Indications This is a 54-year-old woman who presented with a left groin abscess. She has a history of hidradenitis suppurativa and has had multiple abscesses and infections in the past. She has noticed increased redness and swelling in the left groin region over the past several days or so. She was admitted by Dr. Mac yesterday for treatment of this. Discussions were made with the patient about treatment options and decision was made to proceed with incision and drainage of left groin abscess. Findings Incision drainage of complex left groin abscess was performed. The patient had a left groin abscess tracking down slightly towards the left labia. There were multiple loculations were broken up and the abscess was completely drained. There were areas of induration around this but no further pockets of purulence fluid. Abscess was then irrigated and then packed with 1 in iodoform gauze. Description of Procedure Procedure as well as risks, benefits, and alternatives were discussed with the patient. Written consent was obtained and placed in chart prior to procedure. Patient was brought back to surgical suite. She was placed supine on operating table. Time-out was done to confirm patient and procedure. IV sedation was then administered by the anesthesia department. The patient was then repositi oned to frog-leg position and her left groin area was prepped and draped in sterile fashion using Betadine prep. 0.5% bupivacaine with epinephrine was infiltrated locally around the area of fluctuance. There was 1 small pinpoint opening noted with some purulence drainage. The incision was started at this location using a 15 blade scalpel. A culture swab was then used to obtain air aerobic and anaerobic culture and sensitivities. The abscess cavity was drained. A curved hemostat was then used to break down any loculations. I then extended the incision slightly more inferiorly along the area of fluctuance. This then appeared to open up the cavity completely and drain the abscess completely. The wound was then irrigated with sterile saline. No other loculations were identified. The wound was then packed with 1 in iodoform gauze. 4 x 4 gauze, ABD pad, and mesh underwear were then applied. The patient was then awakened from anesthesia and transferred to recovery. Estimated Blood Loss 5 Packing Yes (1 in iodoform gauze) Complications No immediate complications Condition Stable Disposition Floor [facility] Billing Surgery - Charge Forward: Surgery Billing
[2025-02-08] MEDS: fentaNYL CITRATE INJ (*CRX) 100 MCG/2 ML VIAL 25 MCG IV PUSH ×4 (15:39→16:00)
[2025-02-08] MEDS: LACTATED RINGERS 1,000 ML 100 ML IV CONT (16:32)
[2025-02-08 17:55] LABS: MRSA (PCR) NOT DETECTED (NOT DETECTE)
[2025-02-08] MEDS: oxyCODONE/ACETAMINOPHEN (*CRX) 10-325 MG TABLET 1 TAB PO (17:59)
[2025-02-08] MEDS: cefTRIAXone 1 GM in SODIUM CHLORIDE 0.9% IV 50 ML 100 ML IVPB (18:00)
[2025-02-08] MEDS: INSULIN GLARGINE (*BKC) 100 UNITS/ML 25 UNITS SUB-Q (18:14)
[2025-02-08] MEDS: SIMVASTATIN 20 MG TABLET PO (21:56)
[2025-02-08] MEDS: INSULIN ASPART (*BKC) 100 UNITS/ML SUB-Q (22:03)
[2025-02-09 01:55] VITALS: BP 110/63; PULSE 88; RESP 18; TEMP 36.9; O2SAT 99
[2025-02-09] MEDS: oxyCODONE/ACETAMINOPHEN (*CRX) 10-325 MG TABLET 1 TAB PO (05:41)
[2025-02-09 05:55] VITALS: BP 116/69; PULSE 77; RESP 20; TEMP 37; O2SAT 100
[2025-02-09 06:39] LABS: Estimated CRCL calculation 144 ml/min; Estimated Glomerular Filt Rate > 60
[2025-02-09 08:00] VITALS: PULSE 75; RESP 16; O2SAT 91
--- NOTE | 2025-02-09 08:21 | P.PNIM_ITS ---
Progress Note: A&P Assessment and Plan (1) Sepsis: Qualifiers: Sepsis acute organ dysfunction status: without acute organ dysfunction Sepsis type: sepsis due to unspecified organism Qualified Code(s): A41.9 - S epsis, unspecified organism Code(s): A41.9 - Sepsis, unspecified organism Status: Acute (2) Abscess of groin, left: Code(s): L02.214 - Cutaneous abscess of groin Status: Acute (3) Type 2 diabetes mellitus with hyperglycemia, with long-term current use of insulin: Code(s): E11.65 - Type 2 diabetes mellitus with hyperglycemia; Z79.4 - custodial (current) use of insulin Status: Acute (4) Diarrhea: Qualifiers: Diarrhea type: unspecified type Qualified Code(s): R19.7 - Diarrhea, unspecified Code(s): R19.7 - Diarrhea, unspecified Status: Acute (5) Paroxysmal atrial fibrillation: Code(s): I48.0 - Paroxysmal atrial fibrillation Status: Acute (6) Snoring: Code(s): R06.83 - Snoring Status: Acute (7) Chronic anticoagulation: 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 Sepsis criteria met with leukocytosis, tachycardia in the setting of cellulitis in abscess. Continue with Rocephin and vancomycin. blood cultures wound culture Consult Wound Care s/p I and D 02/08, pending wound cultures Continue current antibiotics Uncontrolled type 2 diabetes Continue Lantus and lispro short-acting and sliding scale Hypoglycemic protocol was initiated Of his medication to control glucose a target range Prazosin AFib Continue sotalol. her insurance will not pay for Eliquis Consult care coordination evaluate whether not her plan will pay for Xarelto or if she will need to be placed on Coumadin. Subjective Date/time seen: 02/09/25 08:21 Interval history: Patient underwent a and and yesterday, pain is tolerable, patient denies headache, chest pain, shortness of breath, abdomen pain, nausea vomiting or diarrhea Patient is afebrile over the night, blood pressure stable Exam Narrative: GENERAL: Pleasant, in no acute distress. Well-nourished. - EYES: EOMI. Anicteric. - HENT: Moist mucous membranes. - LUNGS: Clear to auscultation bilateral ly, no wheezing, rhonchi, or rales. - CARDIOVASCULAR: Regular rate and rhyth m. No murmur. No JVD. - ABDOMEN: Soft, non-tender and non-dist ended. No palpable masses. - EXTREMITIES: No edema. Peripheral puls es 2+. Non-tender. - NEUROLOGIC: No focal neurological defi cits. CN II-XII grossly intact. - PSYCHIATRIC: Awake, Alert and oriented x 3. Appropriate mood and affect. - SKIN: Left groin abscess is opened u p, still has active drainage from the abscess - LYMPH: No cervical lymphadenopathy. Objective Data Vital Signs Vital Signs: Vital Signs - 24 hr 02/08/25 08:41 02/08/25 13:57 02/08/25 14:56 Temperature 97.5 F L 97.5 F L Pulse Rate 98 74 86 Respiratory Rate 16 Blood Pressure 120/52 L 107/64 Pulse Oximetry 98 98 Oxygen Delivery Room Air Nasal Cannula Oxygen Flow Rate 2 02/08/25 15:10 02/08/25 15:25 02/08/25 15:40 Temperature Pulse Rate 84 84 80 Respiratory Rate 16 16 14 Blood Pressure 119/65 103/66 102/70 Pulse Oximetry 97 100 99 Oxygen Delivery Nasal Cannula Nasal Cannula Room Air Oxygen Flow Rate 2 2 02/08/25 16:10 02/08/25 16:25 02/08/25 16:55 Temperature 96.7 F L 96.7 F L 96.7 F L Pulse Rate 81 81 88 Respiratory Rate 18 18 18 Blood Pressure 118/69 107/58 L 119/54 L Pulse Oximetry 99 99 95 Oxygen Delivery Oxygen Flow Rate 02/08/25 17:55 02/08/25 20:00 02/08/25 21:55 Temperature 96.7 F L 98.5 F Pulse Rate 88 87 Respiratory Rate 18 18 Blood Pressure 120/59 L 107/60 Pulse Oximetry 96 98 Oxygen Delivery Room Air Oxygen Flow Rate 02/08/25 21:56 02/09/25 01:55 02/09/25 05:55 Temperature 98.5 F 98.6 F Pulse Rate 82 88 77 Respiratory Rate 18 20 Blood Pressure 110/63 116/69 Pulse Oximetry 99 100 Oxygen Delivery Oxygen Flow Rate Intake/Output Intake/Output: Intake & Output 02/06/25 02/07/25 02/08/25 02/09/25 23:59 23:59 23:59 23:59 Intake Total 50 3520.6 500 Balance 50 3520.6 500 Meds/Results Medications: Active Medications Generic Name Dose Route Start Last Admin Trade Name Freq PRN Reason Stop Dose Admin Acetaminophen 650 mg 02/08/25 16:10 Acetaminophen 325 Mg Tablet PO Q6H PRN Pain Rated 1-3 Dextrose 12.5 gm 02/07/25 20:57 Dextrose 50% 25 Gm/50 Ml Syringe IV PUSH PRN PRN Hypoglycemia Protocol Fluoxetine HCl 20 mg 02/08/25 09:00 02/08/25 08:41 Fluoxetine Hcl 20 Mg Capsule PO 20 mg DAILY SYLVIE Administration Gabapentin 300 mg 02/07/25 21:00 02/08/25 21:56 Gabapentin 300 Mg Capsule PO 300 mg Q12H SYLVIE Administration Glucagon 1 mg 02/07/25 20:57 Glucagon For Inj 1 Mg Vial IM PRN PRN Hypoglycemia Protocol Glucose 15 gm 02/07/25 20:57 Glucose Oral Gel 15 Gm Of Glucse In 37.5 Gm Tube PO PRN PRN Hypoglycemia Protocol Hydromorphone HCl 1 mg 02/08/25 16:16 Hydromorphone Hcl Inj (*Crx) 2 Mg/Ml Vial IV PUSH Q2H PRN Breakthrough Pain Rated 7-10 or NPO Hydromorphone HCl 0.5 mg 02/08/25 16:17 Hydromorphone Hcl Inj (*Crx) 2 Mg/Ml Vial IV PUSH Q2H PRN Breakthrough Pain Rated 4-6 or NPO Ceftriaxone Sodium 1 gm/ 50 mls @ 100 mls/hr 02/07/25 18:00 02/08/25 18:00 Sodium Chloride IVPB 100 mls/hr Q24H SYLVIE Administration Vancomycin HCl 1,500 mg in 500 mls @ 250 mls/hr 02/08/25 10:00 02/09/25 00:02 Vancomycin 1,500 Mg/Ns 500 Ml IVPB Infused Q12H SYLVIE Infusion Dextrose 1,000 mls @ 100 mls/hr 02/07/25 20:57 Dextrose 5% 1,000 Ml IVPB PRN PRN Hypoglycemia Protocol Insulin Aspart 9 units 02/08/25 08:00 02/08/25 16:48 Insulin Aspart (*Bkc) 100 Units/Ml 0.1 units/kg (9 units) Not Given SUB-Q TIDWM SYLVIE Insulin Aspart 2 - 4 units 02/07/25 21:00 02/08/25 22:03 Insulin Aspart (*Bkc) 100 Units/Ml SUB-Q 2 units HS SYLVIE Administration Protocol Insulin Aspart 4 - 8 units 02/08/25 08:00 02/08/25 16:31 Insulin Aspart (*Bkc) 100 Units/Ml SUB-Q Not Given TIDWM [facility] Protocol Insulin Glargine 25 units 02/08/25 18:00 02/08/25 18:14 Insulin Glargine (*Bkc) 100 Units/Ml SUB-Q 25 units QPM SYLVIE Administration Lisinopril 10 mg 02/08/25 09:00 02/08/25 08:42 Lisinopril 10 Mg Tablet PO Not Given DAILY SYLVIE Metformin HCl 1,000 mg 02/08/25 09:00 02/08/25 16:24 Metformin Hcl 500 Mg Tablet PO 1,000 mg BID SYLVIE Administration Naloxone HCl 0.1 mg 02/08/25 16:10 Naloxone Hcl 0.4 Mg/Ml Vial IV PUSH Q2M PRN Opiate Reversal Ondansetron HCl 4 mg 02/07/25 16:39 Ondansetron Inj 4 Mg/2 Ml Vial IV PUSH Q4H PRN Nausea And Vomiting Oxycodone/Acetaminophen 1 tablet 02/08/25 16:10 Oxycodone/Acetaminophen (*Crx) 5-325 Mg Tablet PO Q4H PRN Pain Rated 4-6 Oxycodone/Acetaminophen 1 tab 02/08/25 16:10 02/09/25 05:41 Oxycodone/Acetaminophen (*Crx) 10-325 Mg Tablet PO 1 tab Q6H PRN Administration Pain Rated 7-10 Simvastatin 20 mg 02/07/25 21:00 02/08/25 21:56 Simvastatin 20 Mg Tablet PO 20 mg HS SYLVIE Administration Sotalol HCl 80 mg 02/07/25 21:15 02/08/25 21:56 Sotalol Hcl 80 Mg Tablet PO 80 mg Q12HR SYLVIE Administration Labs Labs: Laboratory Results - last 24 hr 02/08/25 02/08/25 02/08/25 09:35 11:34 13:22 Creatinine Estim Creat Clear Calc Estimated GFR POC Capillary Glucose 143 H 107 H 102 Nasal MRSA (PCR) 02/08/25 02/08/25 02/08/25 15:23 16:27 16:47 Creatinine Estim Creat Clear Calc Estimated GFR POC Capillary Glucose 82 81 Nasal MRSA (PCR) Not detected 02/08/25 02/08/25 02/09/25 18:13 21:21 06:03 Creatinine 0.39 L Estim Creat Clear Calc 144 Estimated GFR > 60 POC Capillary Glucose 164 H 201 H Nasal MRSA (PCR) 02/09/25 07:50 Creatinine Estim Creat Clear Calc Estimated GFR POC Capillary Glucose 155 H Nasal MRSA (PCR)
[2025-02-09 08:27] VITALS: BP 104/56; PULSE 75; RESP 16; TEMP 36.8; O2SAT 91
[2025-02-09] MEDS: GABAPENTIN 300 MG CAPSULE PO ×2 (09:33→20:36)
[2025-02-09] MEDS: SOTALOL HCL 80 MG TABLET PO ×2 (09:33→20:36)
[2025-02-09] MEDS: INSULIN ASPART (*BKC) 100 UNITS/ML 9 UNITS SUB-Q ×3 (09:37→17:59)
[2025-02-09] MEDS: oxyCODONE/ACETAMINOPHEN (*CRX) 5-325 MG TABLET 1 TABLET PO ×2 (10:28→20:35)
[2025-02-09] MEDS: LIDO 1%/EPINEPHRINE 1:100,000 20 ML VIAL 10 ML INFILTRATE (13:10)
[2025-02-09] MEDS: VANCOMYCIN 2,000 MG/NS 500 ML 2,000 MG/500 ML BAG 250 MG IVPB ×2 (13:11→23:59)
--- NOTE | 2025-02-09 13:13 | WPDANESPN ---
Anes - Prog Note Post-Op Date/Time: 02/09/25 13:13 Cardiovascular status: normal Respiratory status: normal Airway patency: baseline Mental status: baseline Post-Op hydration status: normal Vital Signs: Last Vital Signs Temp 36.8 C 02/09/25 08:27 Pulse 75 02/09/25 08:27 Resp 16 02/09/25 08:27 BP 104/56 L 02/09/25 08:27 Pulse Ox 91 02/09/25 08:27 O2 Del Method Room Air 02/09/25 08:00 O2 Flow Rate 2 02/08/25 15:25 Pain Score (VAS): 2 I/O: Intake & Output 02/08/25 02/09/25 02/09/25 23:59 07:59 15:59 Intake Total 710 500 140 Balance 710 500 140 Laboratory Tests 02/08/25 05:43 02/09/25 06:03 02/08/25 02/08/25 02/08/25 13:22 15:23 16:27 Creatinine Estim Creat Clear Calc Estimated GFR POC Capillary Glucose 102 82 Nasal MRSA (PCR) Not detected Vancomycin Trough 02/08/25 02/08/25 02/08/25 16:47 18:13 21:21 Creatinine Estim Creat Clear Calc Estimated GFR POC Capillary Glucose 81 164 H 201 H Nasal MRSA (PCR) Vancomycin Trough 02/09/25 02/09/25 02/09/25 06:03 07:50 08:50 Creatinine 0.39 L Estim Creat Clear Calc 144 Estimated GFR > 60 POC Capillary Glucose 155 H Nasal MRSA (PCR) Vancomycin Trough 6.6 L 02/09/25 11:24 Creatinine Estim Creat Clear Calc Estimated GFR POC Capillary Glucose 163 H Nasal MRSA (PCR) Vancomycin Trough Post-procedural complaints: none Patient Feedback: Patient satisfied with anesthetic care.
--- NOTE | 2025-02-09 14:35 | PM.PNGS ---
Progress Note: A&P Assessment and Plan (1) Type 2 diabetes mellitus with hyperglycemia, with long-term current use of insulin: Code(s): E11.65 - Type 2 diabetes mellitus with hyperglycemia; Z79.4 - intermediate card tender (current) use of insulin Status: Acute Assessment and Plan: Management as per hospitalist. (2) Abscess of groin, left: Code(s): L02.214 - Cutaneous abscess of groin Status: Acute Assessment and Plan: Incision and drainage of the abscess yesterday. WBC 17.1 yesterday, down from 19.0. Patient is doing well. Wound is stable. Repacked today. Continue IV antibiotics. Wound cultures pending. (3) Sepsis: Qualifiers: Sepsis type: sepsis due to unspecified organism Sepsis acute organ dysfunction status: without acute organ dysfunction Qualified Code(s): A41.9 - Sepsis, unspecified organism Code(s): A41.9 - Sepsis, unspecified organism Status: Acute Assessment and Plan: White blood count down to 17,008. Vital signs have remained stable. Blood cultures pending. Plan Discussed patient's case and plan of care with Dr. Leal. Subjective Subjective Date/Time Seen: 02/09/25 14:35 Patient reports: no new complaints Interval history: POD1 s/p incision and drainage of complex left groin abscess. Serosanguineous drainage present. Patient is doing generally well. WBC 17.1 yesterday, down from 19. Tolerating regular diabetic diet. Exam Skin: Other: Left groin crease wound measuring 4 x 1.5 x 1. Mild surrounding erythema. Serosanguineous fluid on gauze. Wound repacked today with 1 in iodoform. Patient tolerated well. No necrotizing fasciitis changes noted. Objective Data Vital Signs Vital Signs: Vital Signs - 24 hr 02/08/25 14:56 02/08/25 15:10 02/08/25 15:25 Temperature 97.5 F L Pulse Rate 86 84 84 Respiratory Rate 16 16 16 Blood Pressure 107/64 119/65 103/66 Pulse Oximetry 98 97 100 Oxygen Delivery Nasal Cannula Nasal Cannula Nasal Cannula Oxygen Flow Rate 2 2 2 02/08/25 15:40 02/08/25 16:10 02/08/25 16:25 Temperature 96.7 F L 96.7 F L Pulse Rate 80 81 81 Respiratory Rate 14 18 18 Blood Pressure 102/70 118/69 107/58 L Pulse Oximetry 99 99 99 Oxygen Delivery Room Air Oxygen Flow Rate 02/08/25 16:55 02/08/25 17:55 02/08/25 20:00 Temperature 96.7 F L 96.7 F L Pulse Rate 88 88 Respiratory Rate 18 18 Blood Pressure 119/54 L 120/59 L Pulse Oximetry 95 96 Oxygen Delivery Room Air Oxygen Flow Rate 02/08/25 21:55 02/08/25 21:56 02/09/25 01:55 Temperature 98.5 F 98.5 F Pulse Rate 87 82 88 Respiratory Rate 18 18 Blood Pressure 107/60 110/63 Pulse Oximetry 98 99 Oxygen Delivery Oxygen Flow Rate 02/09/25 05:55 02/09/25 08:00 02/09/25 08:27 Temperature 98.6 F 98.2 F Pulse Rate 77 75 75 Respiratory Rate 20 16 16 Blood Pressure 116/69 104/56 L Pulse Oximetry 100 91 91 Oxygen Delivery Room Air Oxygen Flow Rate Intake/Output Intake/Output: Intake & Output 02/06/25 02/07/25 02/08/25 02/09/25 23:59 23:59 23:59 23:59 Intake Total 50 3520.6 880 Balance 50 3520.6 880 Meds/Results Medications: Active Medications Generic Name Dose Route Start Last Admin Trade Name Freq PRN Reason Stop Dose Admin Acetaminophen 650 mg 02/08/25 16:10 Acetaminophen 325 Mg Tablet PO Q6H PRN Pain Rated 1-3 Dextrose 12.5 gm 02/07/25 20:57 Dextrose 50% 25 Gm/50 Ml Syringe IV PUSH PRN PRN Hypoglycemia Protocol Fluoxetine HCl 20 mg 02/08/25 09:00 02/09/25 09:33 Fluoxetine Hcl 20 Mg Capsule PO 20 mg DAILY SYLVIE Administration Gabapentin 300 mg 02/07/25 21:00 02/09/25 09:33 Gabapentin 300 Mg Capsule PO 300 mg Q12H SYLVIE Administration Glucagon 1 mg 02/07/25 20:57 Glucagon For Inj 1 Mg Vial IM PRN PRN Hypoglycemia Protocol Glucose 15 gm 02/07/25 20:57 Glucose Oral Gel 15 Gm Of Glucse In 37.5 Gm Tube PO PRN PRN Hypoglycemia Protocol Hydromorphone HCl 1 mg 02/08/25 16:16 Hydromorphone Hcl Inj (*Crx) 2 Mg/Ml Vial IV PUSH Q2H PRN Breakthrough Pain Rated 7-10 or NPO Hydromorphone HCl 0.5 mg 02/08/25 16:17 Hydromorphone Hcl Inj (*Crx) 2 Mg/Ml Vial IV PUSH Q2H PRN Breakthrough Pain Rated 4-6 or NPO Ceftriaxone Sodium 1 gm/ 50 mls @ 100 mls/hr 02/07/25 18:00 02/08/25 18:00 Sodium Chloride IVPB 100 mls/hr Q24H SYLVIE Administration Dextrose 1,000 mls @ 100 mls/hr 02/07/25 20:57 Dextrose 5% 1,000 Ml IVPB PRN PRN Hypoglycemia Protocol Vancomycin HCl 2,000 mg in 500 mls @ 250 mls/hr 02/09/25 12:00 02/09/25 13:11 Vancomycin 2,000 Mg/Ns 500 Ml IVPB 250 mls/hr Q12H SYLVIE Administration Insulin Aspart 9 units 02/08/25 08:00 02/09/25 13:15 Insulin Aspart (*Bkc) 100 Units/Ml 0.1 units/kg (9 units) 9 units SUB-Q Administration [facility] Insulin Aspart 2 - 4 units 02/07/25 21:00 02/08/25 22:03 Insulin Aspart (*Bkc) 100 Units/Ml SUB-Q 2 units HS SYLVIE Administration Protocol Insulin Aspart 4 - 8 units 02/08/25 08:00 02/09/25 13:09 Insulin Aspart (*Bkc) 100 Units/Ml SUB-Q Not Given [facility] Protocol Insulin Glargine 25 units 02/08/25 18:00 02/08/25 18:14 Insulin Glargine (*Bkc) 100 Units/Ml SUB-Q 25 units QPM SYLVIE Administration Lisinopril 10 mg 02/08/25 09:00 02/09/25 09:33 Lisinopril 10 Mg Tablet PO 10 mg DAILY SYLVIE Administration Metformin HCl 1,000 mg 02/08/25 09:00 02/09/25 09:33 Metformin Hcl 500 Mg Tablet PO 1,000 mg BID SYLVIE Administration Naloxone HCl 0.1 mg 02/08/25 16:10 Naloxone Hcl 0.4 Mg/Ml Vial IV PUSH Q2M PRN Opiate Reversal Ondansetron HCl 4 mg 02/07/25 16:39 Ondansetron Inj 4 Mg/2 Ml Vial IV PUSH Q4H PRN Nausea And Vomiting Oxycodone/Acetaminophen 1 tablet 02/08/25 16:10 02/09/25 10:28 Oxycodone/Acetaminophen (*Crx) 5-325 Mg Tablet PO 1 tablet Q4H PRN Administration Pain Rated 4-6 Oxycodone/Acetaminophen 1 tab 02/08/25 16:10 02/09/25 05:41 Oxycodone/Acetaminophen (*Crx) 10-325 Mg Tablet PO 1 tab Q6H PRN Administration Pain Rated 7-10 Simvastatin 20 mg 02/07/25 21:00 02/08/25 21:56 Simvastatin 20 Mg Tablet PO 20 mg HS SYLVIE Administration Sotalol HCl 80 mg 02/07/25 21:15 02/09/25 09:33 Sotalol Hcl 80 Mg Tablet PO 80 mg Q12HR SYLVIE Administration Labs Labs: Laboratory Results - last 24 hr 02/08/25 02/08/25 02/08/25 15:23 16:27 16:47 Creatinine Estim Creat Clear Calc Estimated GFR POC Capillary Glucose 82 81 Nasal MRSA (PCR) Not detected Vancomycin Trough 02/08/25 02/08/25 02/09/25 18:13 21:21 06:03 Creatinine 0.39 L Estim Creat Clear Calc 144 Estimated GFR > 60 POC Capillary Glucose 164 H 201 H Nasal MRSA (PCR) Vancomycin Trough 02/09/25 02/09/25 02/09/25 07:50 08:50 11:24 Creatinine Estim Creat Clear Calc Estimated GFR POC Capillary Glucose 155 H 163 H Nasal MRSA (PCR) Vancomycin Trough 6.6 L
--- NOTE | 2025-02-09 14:53 | P.OP_ITS ---
Procedure Note - Detailed Date of Procedure 02/09/25 Pre-op Diagnosis left axilla abscess Post-op Diagnosis Same Procedure Performed Incision and drainage of left axilla abscess Surgeon Ana Carty PA-C Anesthesia Local (1% lidocaine with epinephrine) Indications Patient has extensive history of hidradenitis suppurativa for which she has had multiple I&Ds. Currently hospitalized after I&D of large abscess in groin area. She noted a bump to her left axilla that has increased in size and has become painful. It is now erythematous. She has noted a foul odor. States that this feels very similar to other flare ups. Of note, patient smokes roughly 5 cigarettes per day, which could be contributing to these skin infections. Findings Erythematous abscess to the left axilla roughly 2.5 cm x 2.5 cm. Fluctuance to the center of the abscess. Warmth to the area noted. Extensive scarring present to left axilla, likely from previous HS flare ups. Description of Procedure The patient was placed in the supine position with left arm above her head. The site of abscess for I&D was identified. Following this, the area was prepped with iodine. Then local anesthetic (1%lidocaine with epi) was infiltrated d irectly over the area of swelling and abscess formation. After allowing time for local anesthetic to take affect, a direct incision of about 1.5 cm was made with #11 blade scalpel over the fluctuant area. Immediate flow of purulent drainage was noted. All loculations were broken up. The abscess cavity was probed and all purulent drainage was expressed from the abscess. Following this, the area was packed with 1/4 iodoform gauze and the area was covered with gauze and tape. Estimated Blood Loss 2 Drains No Packing Yes Pathology None sent Complications No immediate complications Condition Stable Disposition Floor [facility] Billing Surgery - Charge Forward: Surgery Billing
[2025-02-09] MEDS: cefTRIAXone 1 GM in SODIUM CHLORIDE 0.9% IV 50 ML 100 ML IVPB (18:00)
[2025-02-09] MEDS: INSULIN GLARGINE (*BKC) 100 UNITS/ML 25 UNITS SUB-Q (18:02)
[2025-02-09 20:36] VITALS: PULSE 80
[2025-02-09 22:00] VITALS: BP 105/61; PULSE 86; RESP 18; TEMP 36.6; O2SAT 96
[2025-02-10] MEDS: oxyCODONE/ACETAMINOPHEN (*CRX) 10-325 MG TABLET 1 TAB PO ×3 (00:23→21:14)
[2025-02-10 05:47] VITALS: BP 108/63; PULSE 77; RESP 18; TEMP 36.6; O2SAT 98
[2025-02-10 06:19] LABS: Hematocrit 34.7 % (37.0-47.0); Hemoglobin 10.9 g/dL (12.0-15.0); Mean Corpuscular HGB Conc 31.4 g/dl (32-36); Mean Corpuscular Hemoglobin 27.3 pg (26-34); Mean Corpuscular Volume 86.8 fl (80-100); Platelet Count Result 200 k/mm3 (150-375); Red Blood Count 4.00 M/mm3 (4.2-5.4); White Blood Count 7.4 K/mm3 (4.5-10.0)
[2025-02-10 06:51] LABS: Estimated CRCL calculation 154 ml/min; Estimated Glomerular Filt Rate > 60
[2025-02-10 09:34] VITALS: PULSE 77
[2025-02-10] MEDS: GABAPENTIN 300 MG CAPSULE PO ×2 (09:34→21:06)
[2025-02-10] MEDS: INSULIN ASPART (*BKC) 100 UNITS/ML 9 UNITS SUB-Q ×2 (09:34→14:07)
[2025-02-10] MEDS: SOTALOL HCL 80 MG TABLET PO ×2 (09:34→21:06)
--- NOTE | 2025-02-10 13:12 | P.PNIM_ITS ---
Progress Note: A&P Assessment and Plan (1) Sepsis: Qualifiers: Sepsis type: sepsis due to unspecified organism Sepsis acute organ dysfunction status: without acute organ dysfunction Qualified Code(s): A41.9 - Sepsis, unspecified organism Code(s): A41.9 - Sepsis, unspecified organism Status: Acute (2) Abscess of groin, left: Code(s): L02.214 - Cutaneous abscess of groin Status: Acute (3) Type 2 diabetes mellitus with hyperglycemia, with long-term current use of insulin: Code(s): E11.65 - Type 2 diabetes mellitus with hyperglycemia; Z79.4 - custodial (current) use of insulin Status: Acute (4) Diarrhea: Qualifiers: Diarrhea type: unspecified type Qualified Code(s): R19.7 - Diarrhea, unspecified Code(s): R19.7 - Diarrhea, unspecified Status: Acute (5) Paroxysmal atrial fibrillation: Code(s): I48.0 - Paroxysmal atrial fibrillation Status: Acute (6) Snoring: Code(s): R06.83 - Snoring Status: Acute (7) Chronic anticoagulation: Code(s): Z79.01 - custodial (current) use of anticoagulants Status: Acute Plan # Cellulitis and abscess the left groin and labia # Sepsis: Sepsis criteria met with leukocytosis, tachycardia in the setting of cellulitis in abscess. Continue with Rocephin and vancomycin. blood cultures wound culture Consult Wound Care s/p I and D 02/08, pending wound cultures Continue current antibiotics Antibiotics switched to Augmentin. leukocytosis has resolved # infected hidradenitis suppurative with abscess and surrounding cellulitis of the left groin and labia. # Uncontrolled type 2 diabetes Continue Lantus and lispro short-acting and sliding scale Hypoglycemic protocol was initiated Of his medication to control glucose a target range # AFib Continue sotalol. her insurance will not pay for Eliquis Consult care coordination evaluate whether not her plan will pay for Xarelto or if she will need to be placed on Coumadin. Subjective Date/time seen: 02/10/25 13:12 Interval history: No overnight events. Feeling better. Remains afebrile. Labs reviewed. Review of Systems Review of Systems: All systems reviewed & are unremarkable except as noted in HPI and below Exam Narrative: GENERAL: Pleasant, in no acute distress. Well-nourished. - EYES: EOMI. Anicteric. - HENT: Moist mucous membranes. - LUNGS: Clear to auscultation bilateral ly, no wheezing, rhonchi, or rales. - CARDIOVASCULAR: Regular rate and rhyth m. No murmur. No JVD. - ABDOMEN: Soft, non-tender and non-dist ended. No palpable masses. - EXTREMITIES: No edema. Peripheral puls es 2+. Non-tender. - NEUROLOGIC: No focal neurological defi cits. CN II-XII grossly intact. - PSYCHIATRIC: Awake, Alert and oriented x 3. Appropriate mood and affect. - SKIN: Left groin abscess with dressi ng in-situ with wound packed, left axilla with dressing in place - LYMPH: No cervical lymphadenopathy. Objective Data Vital Signs Vital Signs: Vital Signs - 24 hr 02/09/25 20:36 02/09/25 22:00 02/10/25 05:47 Temperature 97.8 F 98 F Pulse Rate 80 86 77 Respiratory Rate 18 18 Blood Pressure 105/61 108/63 Pulse Oximetry 96 98 02/10/25 09:34 Temperature Pulse Rate 77 Respiratory Rate Blood Pressure Pulse Oximetry Intake/Output Intake/Output: Intake & Output 02/07/25 02/08/25 02/09/25 02/10/25 23:59 23:59 23:59 23:59 Intake Total 50 3570.6 2720 1410 Balance 50 3570.6 2720 1410 Meds/Results Medications: Active Medications Generic Name Dose Route Start Last Admin Trade Name Freq PRN Reason Stop Dose Admin Acetaminophen 650 mg 02/08/25 16:10 Acetaminophen 325 Mg Tablet PO Q6H PRN Pain Rated 1-3 Amoxicillin/Clavulanate Potassium 1 tablet 02/10/25 21:00 Amoxicillin/Clavulanate K 875-125 Mg Tab PO Q12HR SYLVIE Dextrose 12.5 gm 02/07/25 20:57 Dextrose 50% 25 Gm/50 Ml Syringe IV PUSH PRN PRN Hypoglycemia Protocol Fluoxetine HCl 20 mg 02/08/25 09:00 02/10/25 09:34 Fluoxetine Hcl 20 Mg Capsule PO 20 mg DAILY SYLVIE Administration Gabapentin 300 mg 02/07/25 21:00 02/10/25 09:34 Gabapentin 300 Mg Capsule PO 300 mg Q12H SYLVIE Administration Glucagon 1 mg 02/07/25 20:57 Glucagon For Inj 1 Mg Vial IM PRN PRN Hypoglycemia Protocol Glucose 15 gm 02/07/25 20:57 Glucose Oral Gel 15 Gm Of Glucse In 37.5 Gm Tube PO PRN PRN Hypoglycemia Protocol Hydromorphone HCl 1 mg 02/08/25 16:16 Hydromorphone Hcl Inj (*Crx) 2 Mg/Ml Vial IV PUSH Q2H PRN Breakthrough Pain Rated 7-10 or NPO Hydromorphone HCl 0.5 mg 02/08/25 16:17 Hydromorphone Hcl Inj (*Crx) 2 Mg/Ml Vial IV PUSH Q2H PRN Breakthrough Pain Rated 4-6 or NPO Ceftriaxone Sodium 1 gm/ 50 mls @ 100 mls/hr 02/07/25 18:00 02/09/25 18:00 Sodium Chloride IVPB 100 mls/hr Q24H SYVLIE Administration Dextrose 1,000 mls @ 100 mls/hr 02/07/25 20:57 Dextrose 5% 1,000 Ml IVPB PRN PRN Hypoglycemia Protocol Insulin Aspart 9 units 02/08/25 08:00 02/10/25 09:34 Insulin Aspart (*Bkc) 100 Units/Ml 0.1 units/kg (9 units) 9 units SUB-Q Administration [facility] Insulin Aspart 2 - 4 units 02/07/25 21:00 02/09/25 23:50 Insulin Aspart (*Bkc) 100 Units/Ml SUB-Q Not Given HS [facility] Protocol Insulin Aspart 4 - 8 units 02/08/25 08:00 02/10/25 11:55 Insulin Aspart (*Bkc) 100 Units/Ml SUB-Q Not Given TIDWM [facility] Protocol Insulin Glargine 25 units 02/08/25 18:00 02/09/25 18:02 Insulin Glargine (*Bkc) 100 Units/Ml SUB-Q 25 units QPM SYLVIE Administration Lisinopril 10 mg 02/08/25 09:00 02/10/25 09:34 Lisinopril 10 Mg Tablet PO 10 mg DAILY SYLVIE Administration Metformin HCl 1,000 mg 02/08/25 09:00 02/10/25 09:34 Metformin Hcl 500 Mg Tablet PO 1,000 mg BID SYLVIE Administration Naloxone HCl 0.1 mg 02/08/25 16:10 Naloxone Hcl 0.4 Mg/Ml Vial IV PUSH Q2M PRN Opiate Reversal Ondansetron HCl 4 mg 02/07/25 16:39 Ondansetron Inj 4 Mg/2 Ml Vial IV PUSH Q4H PRN Nausea And Vomiting Oxycodone/Acetaminophen 1 tablet 02/08/25 16:10 02/09/25 20:35 Oxycodone/Acetaminophen (*Crx) 5-325 Mg Tablet PO 1 tablet Q4H PRN Administration Pain Rated 4-6 Oxycodone/Acetaminophen 1 tab 02/08/25 16:10 02/10/25 00:23 Oxycodone/Acetaminophen (*Crx) 10-325 Mg Tablet PO 1 tab Q6H PRN Administration Pain Rated 7-10 Simvastatin 20 mg 02/07/25 21:00 02/10/25 00:00 Simvastatin 20 Mg Tablet PO 20 mg HS SYLVIE Administration Sotalol HCl 80 mg 02/07/25 21:15 02/10/25 09:34 Sotalol Hcl 80 Mg Tablet PO 80 mg Q12HR SYLVIE Administration Labs Labs: Laboratory Results - last 24 hr 02/09/25 02/09/25 02/10/25 17:05 20:25 05:38 WBC 7.4 RBC 4.00 L Hgb 10.9 L Hct 34.7 L MCV 86.8 MCH 27.3 MCHC 31.4 L RDW 13.5 Plt Count 200 MPV 10.4 Creatinine 0.36 L Estim Creat Clear Calc 154 Estimated GFR > 60 POC Capillary Glucose 113 H 195 H 02/10/25 02/10/25 08:02 11:29 WBC RBC Hgb Hct MCV MCH MCHC RDW Plt Count MPV Creatinine Estim Creat Clear Calc Estimated GFR POC Capillary Glucose 128 H 153 H
--- NOTE | 2025-02-10 15:01 | PM.PNGS ---
Progress Note: A&P Assessment and Plan (1) Abscess of left axilla: Code(s): L02.412 - Cutaneous abscess of left axilla Status: Acute Assessment and Plan: Incision and drainage of left axilla abscess yesterday. Packing removed today. No purulence or other signs of infection noted. Continue dressing changes with gauze. (2) Type 2 diabetes mellitus with hyperglycemia, with long-term current use of insulin: Code(s): E11.65 - Type 2 diabetes mellitus with hyperglycemia; Z79.4 - ethylbenzene oxidizer (current) use of insulin Status: Acute Assessment and Plan: Management as per hospitalist. (3) Abscess of groin, left: Code(s): L02.214 - Cutaneous abscess of groin Status: Acute Assessment and Plan: Pod 2 s/p incision and drainage of the abscess yesterday. WBC 7.4, down from 17.1. Patient is doing well. Wound is stable. Repacked today. Nasal MRSA swab negative. IV antibiotics switched to oral Augmentin. Wound cultures pending. G stain results showed many white blood cells, many Gram-negative rods, few Gram-positive cocci. We will continue to follow for wound culture results. Continue wound packing. is present at bedside who is very familiar with packing. Continue oral Augmentin. Likely discharge tomorrow. Follow up in outpatient clinic with Dr. Mac upon discharge. (4) Sepsis: Qualifiers: Sepsis type: sepsis due to unspecified organism Sepsis acute organ dysfunction status: without acute organ dysfunction Qualified Code(s): A41.9 - Sepsis, unspecified organism Code(s): A41.9 - Sepsis, unspecified organism Status: Acute Assessment and Plan: White blood count down to 17,008. Vital signs have remained stable. Blood cultures pending. Plan Discussed patient's case and plan of care with Dr. Mac. Subjective Subjective Date/Time Seen: 02/10/25 15:01 Patient reports: no new complaints Interval history: Pod 2 status post incision and drainage of complex left groin abscess. Pod 1 status post bedside incision and drainage of left axilla abscess. WBC 7.4, down from 17.1. Afebrile. Tolerating regular diet. Exam Const: General: comfortable and no acute distress Skin: Other: Left groin crease wound healing well. Wound bed with pink granulation tissue. Yellow slough present to either edges of wound. Serosanguineous drainage, with no purulence. Wound repacked today with 1 in iodoform. No changes suggestive of necrotizing fasciitis. Left axilla wound healing well. Packing removed today. Serosanguineous drainage present. Minimal surrounding erythema and induration. No signs of infection or skin necrosis. Objective Data Vital Signs Vital Signs: Vital Signs - 24 hr 02/09/25 20:36 02/09/25 22:00 02/10/25 05:47 Temperature 97.8 F 98 F Pulse Rate 80 86 77 Respiratory Rate 18 18 Blood Pressure 105/61 108/63 Pulse Oximetry 96 98 02/10/25 09:34 Temperature Pulse Rate 77 Respiratory Rate Blood Pressure Pulse Oximetry Intake/Output Intake/Output: Intake & Output 02/07/25 02/08/25 02/09/25 02/10/25 23:59 23:59 23:59 23:59 Intake Total 50 3570.6 2720 1890 Balance 50 3570.6 2720 1890 Meds/Results Medications: Active Medications Generic Name Dose Route Start Last Admin Trade Name Freq PRN Reason Stop Dose Admin Acetaminophen 650 mg 02/08/25 16:10 Acetaminophen 325 Mg Tablet PO Q6H PRN Pain Rated 1-3 Amoxicillin/Clavulanate Potassium 1 tablet 02/10/25 21:00 Amoxicillin/Clavulanate K 875-125 Mg Tab PO Q12HR SYLVIE Dextrose 12.5 gm 02/07/25 20:57 Dextrose 50% 25 Gm/50 Ml Syringe IV PUSH PRN PRN Hypoglycemia Protocol Fluoxetine HCl 20 mg 02/08/25 09:00 02/10/25 09:34 Fluoxetine Hcl 20 Mg Capsule PO 20 mg DAILY SYLVIE Administration Gabapentin 300 mg 02/07/25 21:00 02/10/25 09:34 Gabapentin 300 Mg Capsule PO 300 mg Q12H SYLVIE Administration Glucagon 1 mg 02/07/25 20:57 Glucagon For Inj 1 Mg Vial IM PRN PRN Hypoglycemia Protocol Glucose 15 gm 02/07/25 20:57 Glucose Oral Gel 15 Gm Of Glucse In 37.5 Gm Tube PO PRN PRN Hypoglycemia Protocol Hydromorphone HCl 1 mg 02/08/25 16:16 Hydromorphone Hcl Inj (*Crx) 2 Mg/Ml Vial IV PUSH Q2H PRN Breakthrough Pain Rated 7-10 or NPO Hydromorphone HCl 0.5 mg 02/08/25 16:17 Hydromorphone Hcl Inj (*Crx) 2 Mg/Ml Vial IV PUSH Q2H PRN Breakthrough Pain Rated 4-6 or NPO Dextrose 1,000 mls @ 100 mls/hr 02/07/25 20:57 Dextrose 5% 1,000 Ml IVPB PRN PRN Hypoglycemia Protocol Insulin Aspart 9 units 02/08/25 08:00 02/10/25 14:07 Insulin Aspart (*Bkc) 100 Units/Ml 0.1 units/kg (9 units) 9 units SUB-Q Administration [facility] Insulin Aspart 2 - 4 units 02/07/25 21:00 02/09/25 23:50 Insulin Aspart (*Bkc) 100 Units/Ml SUB-Q Not Given HS [facility] Protocol Insulin Aspart 4 - 8 units 02/08/25 08:00 02/10/25 11:55 Insulin Aspart (*Bkc) 100 Units/Ml SUB-Q Not Given [facility] Protocol Insulin Glargine 25 units 02/08/25 18:00 02/09/25 18:02 Insulin Glargine (*Bkc) 100 Units/Ml SUB-Q 25 units QPM SYLVIE Administration Lisinopril 10 mg 02/08/25 09:00 02/10/25 09:34 Lisinopril 10 Mg Tablet PO 10 mg DAILY SYLVIE Administration Metformin HCl 1,000 mg 02/08/25 09:00 02/10/25 09:34 Metformin Hcl 500 Mg Tablet PO 1,000 mg BID SYLVIE Administration Naloxone HCl 0.1 mg 02/08/25 16:10 Naloxone Hcl 0.4 Mg/Ml Vial IV PUSH Q2M PRN Opiate Reversal Ondansetron HCl 4 mg 02/07/25 16:39 Ondansetron Inj 4 Mg/2 Ml Vial IV PUSH Q4H PRN Nausea And Vomiting Oxycodone/Acetaminophen 1 tablet 02/08/25 16:10 02/09/25 20:35 Oxycodone/Acetaminophen (*Crx) 5-325 Mg Tablet PO 1 tablet Q4H PRN Administration Pain Rated 4-6 Oxycodone/Acetaminophen 1 tab 02/08/25 16:10 02/10/25 14:10 Oxycodone/Acetaminophen (*Crx) 10-325 Mg Tablet PO 1 tab Q6H PRN Administration Pain Rated 7-10 Simvastatin 20 mg 02/07/25 21:00 02/10/25 00:00 Simvastatin 20 Mg Tablet PO 20 mg HS SYLVIE Administration Sotalol HCl 80 mg 02/07/25 21:15 02/10/25 09:34 Sotalol Hcl 80 Mg Tablet PO 80 mg Q12HR SYLVIE Administration Labs Labs: Laboratory Results - last 24 hr 02/09/25 02/09/25 02/10/25 17:05 20:25 05:38 WBC 7.4 RBC 4.00 L Hgb 10.9 L Hct 34.7 L MCV 86.8 MCH 27.3 MCHC 31.4 L RDW 13.5 Plt Count 200 MPV 10.4 Creatinine 0.36 L Estim Creat Clear Calc 154 Estimated GFR > 60 POC Capillary Glucose 113 H 195 H 02/10/25 02/10/25 08:02 11:29 WBC RBC Hgb Hct MCV MCH MCHC RDW Plt Count MPV Creatinine Estim Creat Clear Calc Estimated GFR POC Capillary Glucose 128 H 153 H
[2025-02-10 15:03] VITALS: BP 124/79; PULSE 73; RESP 16; TEMP 36.3; O2SAT 100
[2025-02-10] MEDS: INSULIN GLARGINE (*BKC) 100 UNITS/ML 25 UNITS SUB-Q (18:25)
[2025-02-10 20:00] VITALS: PULSE 77; RESP 16; O2SAT 100
[2025-02-10 21:06] VITALS: PULSE 91
[2025-02-10] MEDS: SIMVASTATIN 20 MG TABLET PO ×2 (21:06)
[2025-02-10 22:00] VITALS: BP 108/58; PULSE 77; RESP 16; TEMP 36.6; O2SAT 100
[2025-02-11] MEDS: INSULIN ASPART (*BKC) 100 UNITS/ML 9 UNITS SUB-Q ×2 (08:45→12:19)
[2025-02-11] MEDS: GABAPENTIN 300 MG CAPSULE PO (08:45)
[2025-02-11] MEDS: SOTALOL HCL 80 MG TABLET PO (08:45)
--- NOTE | 2025-02-11 11:32 | P.PNIM_ITS ---
Progress Note: A&P Assessment and Plan (1) Sepsis: Qualifiers: Sepsis type: sepsis due to unspecified organism Sepsis acute organ dysfunction status: without acute organ dysfunction Qualified Code(s): A41.9 - Sepsis, unspecified organism Code(s): A41.9 - Sepsis, unspecified organism Status: Acute (2) Abscess of groin, left: Code(s): L02.214 - Cutaneous abscess of groin Status: Acute (3) Type 2 diabetes mellitus with hyperglycemia, with long-term current use of insulin: Code(s): E11.65 - Type 2 diabetes mellitus with hyperglycemia; Z79.4 - [facility] (current) use of insulin Status: Acute (4) Diarrhea: Qualifiers: Diarrhea type: unspecified type Qualified Code(s): R19.7 - Diarrhea, unspecified Code(s): R19.7 - Diarrhea, unspecified Status: Acute (5) Paroxysmal atrial fibrillation: Code(s): I48.0 - Paroxysmal atrial fibrillation Status: Acute (6) Snoring: Code(s): R06.83 - Snoring Status: Acute (7) Chronic anticoagulation: Code(s): Z79.01 - [facility] (current) use of anticoagulants Status: Acute Plan # Cellulitis and abscess the left groin and labia # Sepsis: Sepsis criteria met with leukocytosis, tachycardia in the setting of cellulitis in abscess. Continue with Rocephin and vancomycin. blood cultures wound culture Consult Wound Care s/p I and D 02/08, pending wound cultures Continue current antibiotics Antibiotics switched to Augmentin. leukocytosis has resolved fu with gen surg as op basis. planned discahrge on augmentin . # infected hidradenitis suppurative with abscess and surrounding cellulitis of the left groin and labia. # Uncontrolled type 2 diabetes Continue Lantus and lispro short-acting and sliding scale Hypoglycemic protocol was initiated Of his medication to control glucose a target range # AFib Continue sotalol. her insurance will not pay for Eliquis Consult care coordination and has been switched to xarelto. which needed PA which was performed and approved. fu with PCP/cardiology Subjective Date/time seen: 02/11/25 11:32 Interval history: no overnight events, feeling better. wound groin repacked yesterday. on oral antibiotcis. xarelto PA has been approved for her afib Review of Systems Review of Systems: All systems reviewed & are unremarkable except as noted in HPI and below Exam Narrative: GENERAL: Pleasant, in no acute distress. Well-nourished. - EYES: EOMI. Anicteric. - HENT: Moist mucous membranes. - LUNGS: Clear to auscultation bilateral ly, no wheezing, rhonchi, or rales. - CARDIOVASCULAR: Regular rate and rhyth m. No murmur. No JVD. - ABDOMEN: Soft, non-tender and non-dist ended. No palpable masses. - EXTREMITIES: No edema. Peripheral puls es 2+. Non-tender. - NEUROLOGIC: No focal neurological defi cits. CN II-XII grossly intact. - PSYCHIATRIC: Awake, Alert and oriented x 3. Appropriate mood and affect. - SKIN: Left groin abscess with dressi ng in-situ with wound packed, left axilla with no dressing and no draiange - LYMPH: No cervical lymphadenopathy. Objective Data Vital Signs Vital Signs: Vital Signs - 24 hr 02/10/25 15:03 02/10/25 20:00 02/10/25 21:06 Temperature 97.3 F L Pulse Rate 73 77 91 Respiratory Rate 16 16 Blood Pressure 124/79 Pulse Oximetry 100 100 Oxygen Delivery Room Air 02/10/25 22:00 Temperature 98 F Pulse Rate 77 Respiratory Rate 16 Blood Pressure 108/58 L Pulse Oximetry 100 Oxygen Delivery Intake/Output Intake/Output: Intake & Output 02/08/25 02/09/25 02/10/25 02/11/25 23:59 23:59 23:59 23:59 Intake Total 3570.6 2720 3470 1030 Balance 3570.6 2720 3470 1030 Meds/Results Medications: Active Medications Generic Name Dose Route Start Last Admin Trade Name Freq PRN Reason Stop Dose Admin Acetaminophen 650 mg 02/08/25 16:10 Acetaminophen 325 Mg Tablet PO Q6H PRN Pain Rated 1-3 Amoxicillin/Clavulanate Potassium 1 tablet 02/10/25 21:00 02/11/25 08:45 Amoxicillin/Clavulanate K 875-125 Mg Tab PO 1 tablet Q12HR SYLVIE Administration Dextrose 12.5 gm 02/07/25 20:57 Dextrose 50% 25 Gm/50 Ml Syringe IV PUSH PRN PRN Hypoglycemia Protocol Fluoxetine HCl 20 mg 02/08/25 09:00 02/11/25 08:45 Fluoxetine Hcl 20 Mg Capsule PO 20 mg DAILY SYLVIE Administration Gabapentin 300 mg 02/07/25 21:00 02/11/25 08:45 Gabapentin 300 Mg Capsule PO 300 mg Q12H SYLVIE Administration Glucagon 1 mg 02/07/25 20:57 Glucagon For Inj 1 Mg Vial IM PRN PRN Hypoglycemia Protocol Glucose 15 gm 02/07/25 20:57 Glucose Oral Gel 15 Gm Of Glucse In 37.5 Gm Tube PO PRN PRN Hypoglycemia Protocol Hydromorphone HCl 1 mg 02/08/25 16:16 Hydromorphone Hcl Inj (*Crx) 2 Mg/Ml Vial IV PUSH Q2H PRN Breakthrough Pain Rated 7-10 or NPO Hydromorphone HCl 0.5 mg 02/08/25 16:17 Hydromorphone Hcl Inj (*Crx) 2 Mg/Ml Vial IV PUSH Q2H PRN Breakthrough Pain Rated 4-6 or NPO Dextrose 1,000 mls @ 100 mls/hr 02/07/25 20:57 Dextrose 5% 1,000 Ml IVPB PRN PRN Hypoglycemia Protocol Insulin Aspart 9 units 02/08/25 08:00 02/11/25 08:45 Insulin Aspart (*Bkc) 100 Units/Ml 0.1 units/kg (9 units) 9 units SUB-Q Administration TIDWM [facility] Insulin Aspart 2 - 4 units 02/07/25 21:00 02/10/25 22:07 Insulin Aspart (*Bkc) 100 Units/Ml SUB-Q Not Given HS [facility] Protocol Insulin Aspart 4 - 8 units 02/08/25 08:00 02/11/25 08:24 Insulin Aspart (*Bkc) 100 Units/Ml SUB-Q Not Given TIDWM [facility] Protocol Insulin Glargine 25 units 02/08/25 18:00 02/10/25 18:25 Insulin Glargine (*Bkc) 100 Units/Ml SUB-Q 25 units QPM SYLVIE Administration Lisinopril 10 mg 02/08/25 09:00 02/11/25 08:45 Lisinopril 10 Mg Tablet PO 10 mg DAILY SYLVIE Administration Metformin HCl 1,000 mg 02/08/25 09:00 02/11/25 08:45 Metformin Hcl 500 Mg Tablet PO 1,000 mg BID SYLVIE Administration Naloxone HCl 0.1 mg 02/08/25 16:10 Naloxone Hcl 0.4 Mg/Ml Vial IV PUSH Q2M PRN Opiate Reversal Ondansetron HCl 4 mg 02/07/25 16:39 Ondansetron Inj 4 Mg/2 Ml Vial IV PUSH Q4H PRN Nausea And Vomiting Oxycodone/Acetaminophen 1 tablet 02/08/25 16:10 02/09/25 20:35 Oxycodone/Acetaminophen (*Crx) 5-325 Mg Tablet PO 1 tablet Q4H PRN Administration Pain Rated 4-6 Oxycodone/Acetaminophen 1 tab 02/08/25 16:10 02/10/25 21:14 Oxycodone/Acetaminophen (*Crx) 10-325 Mg Tablet PO 1 tab Q6H PRN Administration Pain Rated 7-10 Simvastatin 20 mg 02/07/25 21:00 02/10/25 21:06 Simvastatin 20 Mg Tablet PO 20 mg HS SYLVIE Administration Sotalol HCl 80 mg 02/07/25 21:15 02/11/25 08:45 Sotalol Hcl 80 Mg Tablet PO 80 mg Q12HR SYLVIE Administration Labs Labs: Laboratory Results - last 24 hr 02/10/25 02/10/25 02/10/25 11:29 16:50 21:08 POC Capillary Glucose 153 H 74 160 H 02/11/25 08:09 POC Capillary Glucose 142 H
--- NOTE | 2025-02-11 13:49 | PM.DS ---
DS: Admitting Diagnosis Discharge Date 02/11/2025 Admitting Diagnosis left groin abscess, insulin-dependent diabetes mellitus, hidradenitis, sepsis, paroxysmal AFib, chronic anticoagulation DS: Discharge Diagnosis Discharge Diagnosis (1) Abscess of groin, left: Code(s): L02.214 - Cutaneous abscess of groin Status: Acute (2) Abscess of left axilla: Code(s): L02.412 - Cutaneous abscess of left axilla Status: Acute (3) Sepsis: Qualifiers: Sepsis type: sepsis due to unspecified organism Sepsis acute organ dysfunction status: without acute organ dysfunction Qualified Code(s): A41.9 - Sepsis, unspecified organism Code(s): A41.9 - Sepsis, unspecified organism Status: Acute (4) Hidradenitis suppurativa: Code(s): L73.2 - Hidradenitis suppurativa Status: Acute (5) Type 2 diabetes mellitus with hyperglycemia, with long-term current use of insulin: Code(s): E11.65 - Type 2 diabetes mellitus with hyperglycemia; Z79.4 - [facility] (current) use of insulin Status: Acute (6) PAF (paroxysmal atrial fibrillation): Code(s): I48.0 - Paroxysmal atrial fibrillation Status: Acute (7) Chronic anticoagulation: Code(s): Z79.01 - [facility] (current) use of anticoagulants Status: Acute DS: Summary Hospital Course Reason for hospitalization: left groin abscess with sepsis Hospital Course: this is a 54-year-old woman who presented with a left groin abscess. She had being seen in the surgery office by Dr. Mac on 02/07/2025 for an abscess in the left groin. He determined that this would require inpatient hospitalization and urgent surgical treatment. She was placed in the hospital and started on broad-spectrum IV antibiotics. She then underwent incision and drainage of left groin abscess by Dr. Leal on 02/08/2025. Hospitalist was consulted for medical management as well due to multiple medical comorbidities. On postop day 1 the left groin abscess was improving and she tolerated packing change. She was noticing an area in her left axillary region that also appeared to be developing into an abscess. She underwent bedside incision and drainage of left axillary abscess on 02/09/2025. She was then tolerating wound care over the next 2 days. The cultures are showing evidence of Staphylococcus lugdenesis which is the same pathogen that was identified on 1 of her previous wound cultures in 2023. This appears to be sensitive to Augmentin and cephalosporins. Patient discharged on 02/11/2025. Status at Discharge Functional status at discharge: independent ambulation Overall status at discharge: patient is progressing back to baseline Time Spent with Patient Time attestation: Total time spent providing and/or coordinating discharge services: Time spent: Less than 30 minutes Exam Const: General: comfortable and no acute distress Resp: Effort & Inspection: normal respiratory effort Skin: Other: Left groin and axillary abscess wounds appear to be healing well, minimal surrounding erythema and induration, no further purulence drainage DS: Data Data Completed and Pending Labs on day of discharge: Labs from last 24 hours 02/11/25 02/11/25 02/10/25 11:42 08:09 21:08 POC Capillary Glucose 189 H 142 H 160 H 02/10/25 16:50 POC Capillary Glucose 74 Preliminary micro results at discharge 02/07/25 21:30 Blood Culture - Preliminary Blood 02/07/25 21:30 Blood Culture - Preliminary Blood Discharge Plan Discharge Attending physician on discharge: Jayden Mac Consulting providers: Tricia French; Cleo Medrano Discharging Clinician: Edgard Leal Patient Disposition: Home Activity: may shower Diet: diabetic Discharge Instructions: Discharge home. She is to shower but not soak the incision under water for now. Packed the wound with iodoform gauze daily and cover with dry gauze. Take oral antibiotics as directed. Follow-up see Dr. Mac in the office in 1 to 2 weeks. Patient Instructions: Antibiotic Form, Pain Management in Older Adults (GEN) Patient Language: Bengali Stand Alone Forms: General Discharge Information Follow-up/Referrals: Jayden Mac MD [Physician] - (Follow-up to see Dr. Mac in the office in 1 to 2 weeks. Patient to call [phone] for an appointment.) Discharge Medications: New oxycodone-acetaminophen [Endocet] 5-325 mg tablet 1 tablet PO Q4H PRN (Reason: pain) Qty: 10 0RF Xarelto 20 mg tablet 20 mg PO QPM Qty: 30 0RF Rx Instructions: must administer with evening meal amoxicillin-pot clavulanate 875-125 mg tablet 1 tablet PO Q12H 10 Days Qty: 20 0RF Continued Invokana 300 mg tablet See Rx Instructions .ROUTE .COMPLEX Qty: 90 3RF Dose Instruction: TAKE 1 TABLET BY MOUTH DAILY Rx Instructions: TAKE 1 TABLET BY MOUTH DAILY fluoxetine 20 mg capsule 20 mg PO DAILY Qty: 90 3RF gabapentin 300 mg capsule 300 mg PO Q12H Qty: 180 3RF insulin glargine [Lantus Solostar U-100 Insulin] 100 unit/mL (3 mL) insulin pen 25 unit subcut QPM Qty: 15 3RF lisinopril 10 mg tablet 10 mg PO DAILY Qty: 90 3RF simvastatin 20 mg tablet 20 mg PO HS Qty: 90 3RF sotalol 80 mg tablet See Rx Instructions .ROUTE .COMPLEX Qty: 180 3RF Dose Instruction: TAKE 1 TABLET BY MOUTH EVERY 12 HOURS Rx Instructions: TAKE 1 TABLET BY MOUTH EVERY 12 HOURS (DME) blood-glucose meter [OneTouch Verio Flex meter] Misc See Rx Instructions .Route Qty: 1 0RF Rx Instructions: four times daily (DME) OneTouch Verio test strips Strip See Rx Instructions .Route Qty: 100 5RF Rx Instructions: four times daily insulin lispro 100 unit/mL insulin pen See Rx Instructions .ROUTE .COMPLEX Qty: 15 5RF Dose Instruction: USE PER SLIDING SCALE PROVIDED BY OFFICE, MAX OF 25 UNITS/MEAL AND MAX OF 75 UNITS/DAY. Rx Instructions: 8 units TID with SLIDING SCALE PROVIDED BY OFFICE, MAX OF 25 UNITS/MEAL AND MAX OF 75 UNITS/DAY. metformin 1,000 mg tablet 1,000 mg PO BID Qty: 180 3RF pen needle, diabetic [TRUEplus Pen Needle] 31 gauge x 5/16 needle See Rx Instructions miscellaneous .COMPLEX Qty: 100 6RF Rx Instructions: four times daily (DME) Dexcom G7 Division Manager Misc See Rx Instructions .Route Qty: 1 0RF Rx Instructions: four times daily (DME) Dexcom G7 Sensor Device See Rx Instructions .Route Qty: 1 12RF Rx Instructions: As directed Date of admission: 02/07/25 17:08 Primary Care Provider: Genia Moran Admitting Provider: Jayden Mac Attending physician on admission: Jayden Mac Condition: Improved
--- NOTE | 2025-02-13 09:16 | P.CDI_ITS ---
CDI Query Clarification Request To ensure appropriate documentation, can you please clarify: What was the depth of the incision and drainage on 02/08? * skin only * subcutaneous tissue * fascia * muscle * bone * other, please specify Indications This is a 54-year-old woman who presented with a left groin abscess. She has a history of hidradenitis suppurativa and has had multiple abscesses and infections in the past. She has noticed increased redness and swelling in the left groin region over the past several days or so. She was admitted by Dr. Mac yesterday for treatment of this. Discussions were made with the patient about treatment options and decision was made to proceed with incision and drainage of left groin abscess. Findings Incision drainage of complex left groin abscess was performed. The patient had a left groin abscess tracking down slightly towards the left labia. There were multiple loculations were broken up and the abscess was completely drained. There were areas of induration around this but no further pockets of purulence fluid. Abscess was then irrigated and then packed with 1 in iodoform gauze. Description of Procedure Procedure as well as risks, benefits, and alternatives were discussed with the patient. Written consent was obtained and placed in chart prior to procedure. Patient was brought back to surgical suite. She was placed supine on operating table. Time-out was done to confirm patient and procedure. IV sedation was then administered by the anesthesia department. The patient was then repositioned to frog-leg position and her left groin area was prepped and draped in sterile fashion using Betadine prep. 0.5% bupivacaine with epinephrine was infiltrated locally around the area of fluctuance. There was 1 small pinpoint opening noted with some purulence drainage. The incision was started at this location using a 15 blade scalpel. A culture swab was then used to obtain air aerobic and anaerobic culture and sensitivities. The abscess cavity was drained. A curved hemostat was then used to break down any loculations. I then extended the incision slightly more inferiorly along the area of fluctuance. This then appeared to open up the cavity completely and drain the abscess completely. The wound was then irrigated with sterile saline. No other loculations were identified. The wound was then packed with 1 in iodoform gauze. 4 x 4 gauze, ABD pad, and mesh underwear were then applied. The patient was then awakened from anesthesia and transferred to recovery. <Elana Caldwell RN - Last Filed: 02/13/25 09:46> To ensure appropriate documentation, can you please clarify: What was the depth of the incision and drainage on 02/08? * skin only * subcutaneous tissue * fascia * muscle * bone * other, please specify Indications This is a 54-year-old woman who presented with a left groin abscess. She has a history of hidradenitis suppurativa and has had multiple abscesses and infections in the past. She has noticed increased redness and swelling in the left groin region over the past several days or so. She was admitted by Dr. Mac yesterday for treatment of this. Discussions were made with the patient about treatment options and decision was made to proceed with incision and drainage of left groin abscess. Findings Incision drainage of complex left groin subcutaneous abscess was performed. The patient had a left groin abscess tracking down slightly towards the left labia. There were multiple loculations were broken up and the abscess was completely drained. There were areas of induration around this but no further pockets of purulence fluid. Abscess was then irrigated and then packed with 1 in iodoform gauze. Description of Procedure Procedure as well as risks, benefits, and alternatives were discussed with the patient. Written consent was obtained and placed in chart prior to procedure. Patient was brought back to surgical suite. She was placed supine on operating table. Time-out was done to confirm patient and procedure. IV sedation was then administered by the anesthesia department. The patient was then repositioned to frog-leg position and her left groin area was prepped and draped in sterile fashion using Betadine prep. 0.5% bupivacaine with epinephrine was infiltrated locally around the area of fluctuance. There was 1 small pinpoint opening noted with some purulence drainage. The incision was started at this lo cation using a 15 blade scalpel. A culture swab was then used to obtain air aerobic and anaerobic culture and sensitivities. The abscess cavity was drained. A curved hemostat was then used to break down any loculations. I then extended the incision slightly more inferiorly along the area of fluctuance. This then appeared to open up the cavity completely and drain the abscess completely. The wound was then irrigated with sterile saline. No other loculations were identified. The wound was then packed with 1 in iodoform gauze. 4 x 4 gauze, ABD pad, and mesh underwear were then applied. The patient was then awakened from anesthesia and transferred to recovery. <Edgard Leal, DO - Last Filed: 02/14/25 17:10>
--- OUTSIDE RECORDS SUMMARY | 2025-02-13 11:39 | XMS_ITS | Encounter Summary ---
Author Organization [facility] Health Address [address] [place] [address] Care Team Providers Care Fashion Marketer Name Role Phone Luis M Kirkpatrick MD Unavailable [phone] Lucho Casas MD Unavailable [phone] Luis M Kirkpatrick MD Primary Care Provider [phone] Encounter Details Date Type Department Care Team (Late st Contact Info) Description 05/27/2023 Telephone [facility] - Endocrinology [address] [place] [address], [facility] [place] [address] Arelis Argueta MD [address] [place] [address] [place] [phone] Social History Tobacco Use Types Packs/Day Years Used Date Smoking Tobacco: Some Days Cigarettes 0.5 30 Smokeless Tobacco: Former Alcohol Use Standard Drinks/Week Comments Yes 0 (1 standard drink = 0.6 oz pur e alcohol) socially Comments No Sex and Gender Information Value Date Recorded Sex Assigned at Not on file 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 Kendall Infante/Staff Reason for call: Ms. Whit Segvoia is calling re: her blood sugar running between 400 and 500 for a few weeks, currently her level is at 499, 11:20AM, 05/27/2023. Please give her a call SHE. shE YADI CURRENTLY has an abscess and is taking antibiotics, with two doses remaining Patient Call Back number: [phone] R MACHINE OPERATOR documented in this encounter Plan of Treatment Not on file documented as of this encounter Visit Diagnoses Not on filedocumented in this encounter Care Teams Fashion Marketer Relationship Specialty Start Date End Date Luis M Kirkpatrick MD [address] [place] [address] PCP - General 11/26/21 Luis M Kirkpatrick MD [address] [place] [address] 04/16/21 Lucho Casas MD [address] [place] [address] 10/07/18 documented as of this encounter
--- OUTSIDE RECORDS SUMMARY | 2025-02-13 11:39 | XMS_ITS | Encounter Summary ---
Author Organization [facility] Health Address [address] [facility] [place] [address] Care Team Providers Care Blood Bank Technologist Name Role Phone Lusi M Kirkpatrick MD Unavailable [phone] Lucho Casas MD Unavailable [phone] Luis M Kirkpatrick MD Primary Care Provider [phone] Encounter Details Date Type Department Care Team (Late st Contact Info) Description 05/29/2023 Telephone [facility] - Endocrinology [address] [place] [address], [place] [address] Sobia Meza MD [address] [place] [phone] Social History Tobacco Use Types Packs/Day Years Used Date Smoking Tobacco: Some Days Cigarettes 0.5 30 Smokeless Tobacco: Former Alcohol Use Standard Drinks/Week Comments Yes 0 (1 standard drink = 0.6 oz pur e alcohol) socially Comments No Sex and Gender Information Value Date Recorded Sex Assigned at Not on file 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 Drug type:LANTUS PEN, ONE TOUCH ULTRA STRIPS, AND PEN NEEDLES BUT MAY NEED A SUBSTITUTE BRAND OF PEN NEEDLES DUE TO INSURANCE NOT COVERING. Pharmacy:[id number] - [address] [facility] [phone] [facility] [address] Patient call back number: [phone] . PATIENT ALSO STATES HER BLOOD SUGAR IS STILL IN THE 300'S AND WOULD LIKE A CALL FROM THE OFFICE. ENTICE COSMETOLOGIST documented in this encounter Plan of Treatment Not on file documented as of this encounter Visit Diagnoses Not on filedocumented in this encounter Care Teams Blood Bank Technologist Relationship Specialty Start Date End Date Luis M Kirkpatrick MD [address] [place] [address] PCP - General 11/26/21 Luis M Kirkpatrick MD [address] [place] [address] 04/16/21 Lucoh Casas MD [address] [place] [address] 10/07/18 documented as of this encounter
--- OUTSIDE RECORDS SUMMARY | 2025-02-13 11:39 | XMS_ITS | Encounter Summary ---
Author Organization [facility] Address [address] [facility] [place] [address] Care Team Providers Care Department Manager Name Role Phone Luis M Kirkpatrick MD Unavailable [phone] Lucho Casas MD Unavailable [phone] Luis M Kirkpatrick MD Primary Care Provider [phone] Encounter Details Date Type Department Care Team (Late st Contact Info) Description 05/13/2023 Telephone [facility] - Endocrinology [address] [place] [address], [facility] [address] Arelis Argueta MD [address] [place] [address] [place] [address] Social History Tobacco Use Types Packs/Day Years Used Date Smoking Tobacco: Some Days Cigarettes 0.5 30 Smokeless Tobacco: Former Alcohol Use Standard Drinks/Week Comments Yes 0 (1 standard drink = 0.6 oz pur e alcohol) socially Comments No Sex and Gender Information Value Date Recorded Sex Assigned at Not on file 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 Can you please let her know. [...] Thanks so much. Patient Call Back number: [phone] documented in this encounter Plan of Treatment Not on file documented as of this encounter Visit Diagnoses Not on filedocumented in this encounter Care Teams Department Manager Relationship Specialty Start Date End Date Luis M Kirkpatrick MD [address] [place] [address] PCP - General 11/26/21 Luis M Kirkpatrick MD [address] [place] [address] 04/16/21 Lucho Casas MD [address] [place] [address] 10/07/18 documented as of this encounter
--- OUTSIDE RECORDS SUMMARY | 2025-02-13 11:39 | XMS_ITS | Continuity of Care Document ---
Author Organization [facility] Address [address] [place] [address] [place] [address] Phone Care Team Providers Care Event Operations Manager Name Role Phone Gage Kaiser Unavailable Unavailable Procedures Procedure Date Eye Exam & Treatment Refraction Eye Exam, New Patient Advance Directives Directive Yes / No Effective Date File Name No Information Encounters Encounter Description Practice Location Reason(s) For Visit Diagnoses Date Provider Providers Copied on Encounter [facility], [address] [place] [address] [address], [place], [place], [id number], tel:[phone] [facility] No Information 8-201 0 Krishnasamy Gage. [address] [address], [place], [place], [facility], [place]. tel:[phone] [facility], [address] [place] [address] [address], [place], [place], [id number], tel:[phone] [facility] No Information 0-200 9 Krishnasamy Gage. [address] [facility] [address], [place], [address], [place]. tel:[phone] Family History Family Member Type Diagnosis Age At Onset No Information Payers Payer name Insurance type Covered republican ID Authortaylora bill(s) Medicaid [employer] [id number] Social History Type Description Quantity Date Captured [...]
--- OUTSIDE RECORDS SUMMARY | 2025-02-13 11:39 | XMS_ITS | Encounter Summary ---
Author Organization [facility] Address [address] [facility] [place] [address] Care Team Providers Care Pool Hand Name Role Phone Luis M Kirkpatrick MD Unavailable [phone] Lucho Casas MD Unavailable [phone] Luis M Kirkpatrick MD Primary Care Provider [phone] Encounter Details Date Type Department Care Team (Late st Contact Info) Description 05/27/2023 Telephone [facility] - Centralized Scheduling [address] [place] [id number] Arelis Argueta MD [facility] [address] Social History Tobacco Use Types Packs/Day Years Used Date Smoking Tobacco: Some Days Cigarettes 0.5 30 Smokeless Tobacco: Former Alcohol Use Standard Drinks/Week Comments Yes 0 (1 standard drink = 0.6 oz pur e alcohol) socially Comments No Sex and Gender Information Value Date Recorded Sex Assigned at Not on file Legal Sex Female 1:22 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 To let her know that Dr. Berry sent her prescriptions into the pharmacy. Patient did not answer. Left voice mail to call office back. [employer] * Telephone Encounter - Oscar Sainilucía - 05/27/2023 9:15 AM CST Patient called in requesting a Med refill. Drug type: dulaglutide (Trulicity) 1.5 MG/0.5ML injection, insulin pen needle (B-D UF III MINI PEN NEEDLES) 31G X 5 MM needle and one touch ultra test strips. Pharmacy:[facility] [address] [place] [address] Patient call back number: [phone]. States thatshe is running out of medication. Is frustrated because she was told that Dr. Meza would be fillingher meds because Dr. Quintana is certified through [place]. Reached out to SCOTT Hoyos regarding this concern and was advised that Dr. Meza isn't here today. Ms. Segovia would like a call back to discuss further steps. Callback number listed above. . [employer] documented in this encounter Plan of Treatment Not on file documented as of this encounter Visit Diagnoses Not on filedocumented in this encounter Care Teams Pool Hand Relationship Specialty Start Date End Date Luis M Kirkpatrick MD [address] [place] [address] PCP - General 11/26/21 Luis M Kirkpatrick MD [address] [place] [address] 04/16/21 Lucho Casas MD [address] [place] [address] 10/07/18 documented as of this encounter
--- OUTSIDE RECORDS SUMMARY | 2025-02-13 11:39 | XMS_ITS | Encounter Summary ---
Author Organization [facility] Address [address] [facility] [place] [address] Care Team Providers Care Farm Equipment Engineer Name Role Phone Luis M Kirkpatrick MD Unavailable [phone] Lucho Casas MD Unavailable [phone] Luis M Kirkpatrick MD Primary Care Provider [phone] Encounter Details Date Type Department Care Team (Late st Contact Info) Description 04/23/2023 Telephone [facility] - Centralized Scheduling [address] [place] [id number] Arelis Argueta MD [address] [place] [address] Social History Tobacco Use Types Packs/Day Years Used Date Smoking Tobacco: Some Days Cigarettes 0.5 30 Smokeless Tobacco: Former Alcohol Use Standard Drinks/Week Comments Yes 0 (1 standard drink = 0.6 oz pur e alcohol) socially Comments No Sex and Gender Information Value Date Recorded Sex Assigned at Not on file Legal Sex Female 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
--- OUTSIDE RECORDS SUMMARY | 2025-02-13 11:40 | XMS_ITS | Encounter Summary ---
Author Organization [facility] Address [address] [facility] [place] [address] Care Team Providers Care Metallurgical Analyst Name Role Phone Luis M Kirkpatrick MD Primary Care Provider [phone] Lucho Casas MD Primary Care Provider [phone] Luis M Kirkpatrick MD Unavailable [phone] Lucho Casas MD Unavailable [phone] Luis M Kirkpatrick MD Primary Care Provider [phone] Reason for Visit * Reason Onset Date Comments Medication Prior Auth Request 01/24/2019 Encounter Details Date Type Department Care Team (Late st Contact Info) Description 01/24/2019 Telephone [facility], Diabetes and Metabolism [address] [place] [address] Timo Us MD [address] [place] [address] Medication Prior Auth Request Social History Tobacco Use Types Packs/Day Years Used Date Smoking Tobacco: Never Smokeless Tobacco: Never Alcohol Use Standard Drinks/Week Comments Yes 0 (1 standard drink = 0.6 oz pur e alcohol) Comments Unknown Sex and Gender Information Value Date Recorded Sex Assigned at Not on file Legal Sex Female 1:22 PM ADMINISTRATION INTERN Gender Identity Not on file Sexual Orientation [...] on filedocumented in this encounter Care Teams Metallurgical Analyst Relationship Specialty Start Date End Date Luis M Kirkpatrick MD [address] [place] [address] PCP - General 10/07/18 04/15/21 Lucho Casas MD [address] [place] [address] PCP - General 04/16/21 11/25/21 Luis M Kirkpatrick MD [address] [place] [address] PCP - General 11/26/21 Luis M Kirkpatrick MD [address] [place] [address] 04/16/21 Lucho Casas MD [address] [place] [address] 10/07/18 documented as of this encounter
--- OUTSIDE RECORDS SUMMARY | 2025-02-13 11:40 | XMS_ITS | Referral Summary ---
Author Organization [facility] [address] [place] [address] Care Team Providers Care Senior Courtroom Clerk Name Role Phone Juan Pablo Forbes DO Unavailable [phone] Connor Barton MD Unavailable [phone] No, Physician Primary Care Provider [phone] Allergies Active Allergy Reactions Criticality Noted Date Comments Bacitracin Vomiting Low 03/16/2018 Sulfamethoxazole-Trimethoprim Diarrhea,Vomiting Low 05/13/2022 Celecoxib Nausea & Vomiting Low 03/16/2018 Clindamycin Hives Medium 03/16/2018 Propoxyphene-Acetaminophen Nausea & Vomiting Low Medications blood glucose diagnostic stripIndication s:Type 2 diabetes mellitus with hyperglycemia, with long-term current use of insulin ([facility]) accu-check guide test strips test blood sugars five times every day dx:E11.65 insulin dependent 150 each 3 8 Active FLUoxetine (PROzac) 20 mg capsule Take 1 capsule (20 mg total) by mouth 2 (two) times a day 0 8 Active metFORMIN (GLUCOPHAGE) 1,000 mg tabletIndicatio ns:Type 2 diabetes mellitus with hyperglycemia, with long-term current use of insulin ([facility]) TAKE 1 TABLET(1000 MG) BY [...] 03/17/2018 Assessment & Plan (08/20/2018 4:20 PM TEACHER EMOTIONALLY IMPAIRED): Diabetes is improving with treatment. Reviewed insulin [...] . Assessment & Plan (06/21/2018 7:03 AM TEACHER EMOTIONALLY IMPAIRED): Diabetes is improving with treatment. Reviewed insulin [...] . Assessment & Plan (05/23/2018 8:52 PM TEACHER EMOTIONALLY IMPAIRED): Diabetes is improving with treatment. A1c - [...] type 2, - patho physiology, short and mcfp complications of uncontrolled DM, diet and exercise [...] 03/17/2018 Assessment & Plan (08/20/2018 4:21 PM TEACHER EMOTIONALLY IMPAIRED): Hypertension is chronic, well controlled Continue current treatment regimen. Dietary sodium restriction. Weight loss. Regular aerobic exercise. Continue current medications. Blood pressure will be reassessed at the next regular appointment. Assessment & Plan (06/21/2018 7:04 AM TEACHER EMOTIONALLY IMPAIRED): Hypertension is chronic, well controlled Continue current [...] 03/17/2018 Assessment & Plan (08/20/2018 4:21 PM TEACHER EMOTIONALLY IMPAIRED): Pt. On statin therapy Nutrition counseling provided Advised to increase aerobic exercise Assessment & Plan (06/21/2018 7:04 AM TEACHER EMOTIONALLY IMPAIRED): Pt. On statin therapy Nutrition counseling provided Advised to increase aerobic exercise Assessment & Plan (03/17/2018 7:44 AM CDT): Pt. On statin therapy Nutrition counseling provided Advised to increase aerobic exercise Insulin pump status 03/17/2018 Assessment & Plan (08/20/2018 4:21 PM TEACHER EMOTIONALLY IMPAIRED): Have long acting , basal insulin ( [...] 02/18 Assessment & Plan (08/20/2018 4:21 PM TEACHER EMOTIONALLY IMPAIRED): Obesity is improving with lifestyle modifications. Discussed [...] discussed. Assessment & Plan (06/21/2018 7:04 AM TEACHER EMOTIONALLY IMPAIRED): Obesity is improving with lifestyle habits Discussed [...] often do you attend chur ch or scientology services? 1 to 4 times per year 02/17/2023 Do you belong to any clubs o r organizations such as yarsani groups, unions, fraternal or athletic groups, or [...] place to sleep or slept in a [place] (including now)? No 02/17/2023 Personal Safety Answer Date Recorded Have you ever been in or are you currently in a harmful physical or emotional relationship or is someone making you feel afraid or unsafe? Denies 08/15/2023 Comments No Sex and Gender Information Value Date Recorded Sex Assigned at Not on file Legal Sex Female 6:30 AM TEACHER EMOTIONALLY IMPAIRED Gender Identity Not on file Sexual Orientation Not on file Last Filed Vital Signs Vital Sign Reading Time Taken Comments Blood Pressure 153/90 08/16/2023 7:30 AM TEACHER EMOTIONALLY IMPAIRED Pulse 87 08/16/2023 7:30 AM TEACHER EMOTIONALLY IMPAIRED Temperature 36.8 C (98.2 F) 08/16/2023 7:30 AM TEACHER EMOTIONALLY IMPAIRED Respiratory Rate 18 08/16/2023 7:30 AM TEACHER EMOTIONALLY IMPAIRED Oxygen Saturation 99% 08/16/2023 7:30 AM TEACHER EMOTIONALLY IMPAIRED Inhaled Oxygen Concentration - - Weight 100.7 kg (222 lb 0.1 oz) 024 11:25 PM TEACHER EMOTIONALLY IMPAIRED Height 165.1 cm (5' 5) 08/14/2023 11:2 5 PM TEACHER EMOTIONALLY IMPAIRED Body Mass Index 36.94 08/14/2023 11:25 PM TEACHER EMOTIONALLY IMPAIRED Plan of Treatment Not on file Procedures Procedure Name Priority Date/Time Associated Diagnosis Comments EGFR Routine 08/15/2023 4:36 AM TEACHER EMOTIONALLY IMPAIRED HEMOGLOBIN A1C STAT 08/14/2023 6:14 PM TEACHER EMOTIONALLY IMPAIRED POCT LIPID PANEL Routine 03/16/2018 1:50 PM CDT Type 2 diabetes mellitus with hyperglycemia, with long-term current use of insulin (HCC) from Last 3 Months or Most Recently Relevant to Health Maintenance Results * eGFR (08/15/2023 4:36 AM TEACHER EMOTIONALLY IMPAIRED) eGFR 118 mL/min/1. 73 m2 [facility] [place] [...] last reviewed 2021. Blood 08/15/2023 4:36 AM TEACHER EMOTIONALLY IMPAIRED 08/15/2023 4:36 AM TEACHER EMOTIONALLY IMPAIRED Drew Early MD LAB BLOOD ORDERABLES Final R esult J[facility] [address] [facility] Department [place] [address] * (ABNORMAL) Hemoglobin A1c (08/14/2023 6:14 PM TEACHER EMOTIONALLY IMPAIRED) [facility] Hgb A1C 11.5(H) 4.0 - 5.6 % JER Comment:Testing performed by : [address] [address] Estimated Average Glucose 283 mg/dL J[facility] Comment: The ADA recommends reporting an estimated Average Glucose (eAG) with all Hemoglobin A1c results using the equation derived from a study of 507 normal and diabetic adults. Minority populations were underrepresented and children were not included. (Diabetes Care 31:6798-9044, 2008). The eAG is not equivalent to a fasting glucose. Testing performed by: [address] [address] Blood 08/14/2023 6:14 PM TEACHER EMOTIONALLY IMPAIRED 08/14/2023 6:15 PM TEACHER EMOTIONALLY IMPAIRED us Luis Fernando Barragan DO LAB BLOOD ORDERABLES Final Result [facility] [address] [facility] Department [place] [address] * POCT lipid panel (03/16/2018 1:50 PM [...] Indicated MDR gram neg/ESBL 05/16/2023 05/16/2023 Insurance [facility] Advance Directives For more information, please contact: [phone] * Full Code (Latest Code Status on File) Date Activated Date Inactivated Comments 08/14/2023 11:22 PM 08/16/2023 3:36 PM * Full Code Date Activated Date Inactivated Comments 02/16/2023 10:52 PM 02/22/2023 5:12 PM Care Teams Senior Courtroom Clerk Relationship Specialty Start Date End Date No, Physician PCP - General 08/14/23 Juan Pablo Forbes DO Internal Medicine 03/17/18 [place] [address] [facility] [address] [place] [address] Consulting Physician Endocrinology 09/01/18
--- OUTSIDE RECORDS SUMMARY | 2025-02-13 11:40 | XMS_ITS | Clinical Summary ---
Author Organization [facility] [address] [place] [address] Care Team Providers Care Non Destructive Evaluation Technician Name Role Phone Juan Pablo Forbes DO Unavailable [phone] Connor Barton MD Unavailable [phone] No, Physician Primary Care Provider [phone] Allergies Active Allergy Reactions Criticality Noted Date Comments Bacitracin Vomiting Low 03/16/2018 Sulfamethoxazole-Trimethoprim Diarrhea,Vomiting Low 05/13/2022 Celecoxib Nausea & Vomiting Low 03/16/2018 Clindamycin Hives Medium 03/16/2018 Propoxyphene-Acetaminophen Nausea & Vomiting Low Medications blood glucose diagnostic stripIndication s:Type 2 diabetes mellitus with hyperglycemia, with long-term current use of insulin ([facility]) accu-check guide test strips test blood sugars five times every day dx:E11.65 insulin dependent 150 each 3 8 Active FLUoxetine (PROzac) 20 mg capsule Take 1 capsule (20 mg total) by mouth 2 (two) times a day 0 8 Active metFORMIN (GLUCOPHAGE) 1,000 mg tabletIndicatio ns:Type 2 diabetes mellitus with hyperglycemia, with long-term current use of insulin ([facility]) TAKE 1 TABLET(1000 MG) BY MOUTH [...] 03/17/2018 Assessment & Plan (08/20/2018 4:20 PM SKIP OPERATOR): Diabetes is improving with treatment. Reviewed [...] . Assessment & Plan (06/21/2018 7:03 AM SKIP OPERATOR): Diabetes is improving with treatment. Reviewed [...] . Assessment & Plan (05/23/2018 8:52 PM SKIP OPERATOR): Diabetes is improving with treatment. A1c [...] type 2, - patho physiology, short and chcf complications of uncontrolled DM, diet and exercise [...] 03/17/2018 Assessment & Plan (08/20/2018 4:21 PM SKIP OPERATOR): Hypertension is chronic, well controlled Continue current treatment regimen. Dietary sodium restriction. Weight loss. Regular aerobic exercise. Continue current medications. Blood pressure will be reassessed at the next regular appointment. Assessment & Plan (06/21/2018 7:04 AM SKIP OPERATOR): Hypertension is chronic, well controlled Continue [...] 03/17/2018 Assessment & Plan (08/20/2018 4:21 PM SKIP OPERATOR): Pt. On statin therapy Nutrition counseling provided Advised to increase aerobic exercise Assessment & Plan (06/21/2018 7:04 AM SKIP OPERATOR): Pt. On statin therapy Nutrition counseling provided Advised to increase aerobic exercise Assessment & Plan (03/17/2018 7:44 AM CDT): Pt. On statin therapy Nutrition counseling provided Advised to increase aerobic exercise Insulin pump status 03/17/2018 Assessment & Plan (08/20/2018 4:21 PM SKIP OPERATOR): Have long acting , basal insulin [...] 02/18 Assessment & Plan (08/20/2018 4:21 PM SKIP OPERATOR): Obesity is improving with lifestyle modifications. [...] discussed. Assessment & Plan (06/21/2018 7:04 AM SKIP OPERATOR): Obesity is improving with lifestyle habits [...] often do you attend chur ch or mormonism services? 1 to 4 times per year 02/17/2023 Do you belong to any clubs o r organizations such as muslim groups, unions, fraternal or athletic groups, or [...] place to sleep or slept in a mcfp (including now)? No 02/17/2023 Personal Safety Answer Date Recorded Have you ever been in or are you currently in a harmful physical or emotional relationship or is someone making you feel afraid or unsafe? Denies 08/15/2023 Comments No Sex and Gender Information Value Date Recorded Sex Assigned at Not on file Legal Sex Female 6:30 AM SKIP OPERATOR Gender Identity Not on file Sexual Orientation Not on file Obstetrics History Last Filed Vital Signs Vital Sign Reading Time Taken Comments Blood Pressure 153/90 08/16/2023 7:30 AM SKIP OPERATOR Pulse 87 08/16/2023 7:30 AM SKIP OPERATOR Temperature 36.8 C (98.2 F) 08/16/2023 7:30 AM SKIP OPERATOR Respiratory Rate 18 08/16/2023 7:30 AM SKIP OPERATOR Oxygen Saturation 99% 08/16/2023 7:30 AM SKIP OPERATOR Inhaled Oxygen Concentration - - Weight 100.7 kg (222 lb 0.1 oz) 024 11:25 PM SKIP OPERATOR Height 165.1 cm (5' 5) 08/14/2023 11:2 5 PM SKIP OPERATOR Body Mass Index 36.94 08/14/2023 11:25 PM SKIP OPERATOR Plan of Treatment Health Maintenance Due Date [...] 07/21, 08/14/2023, Additional history exists Influenza Vaccine (#1) 2025 08/16/2023, 2020 Zoster Vaccine Completed 02/19/2022, 12/21/2021 Procedures Procedure Name Priority Date/Time Associated Diagnosis Comments EGFR Routine 08/15/2023 4:36 AM SKIP OPERATOR HEMOGLOBIN A1C STAT 08/14/2023 6:14 PM SKIP OPERATOR POCT LIPID PANEL Routine 03/16/2018 1:50 PM CDT Type 2 diabetes mellitus with hyperglycemia, with long-term current use of insulin (HCC) from Last 3 Months or Most Recently Relevant to Health Maintenance Results * eGFR (08/15/2023 4:36 AM SKIP OPERATOR) eGFR 118 mL/min/1. 73 m2 J[facility] [...] last reviewed 2021. Blood 08/15/2023 4:36 AM SKIP OPERATOR 08/15/2023 4:36 AM SKIP OPERATOR Drew Early MD LAB BLOOD ORDERABLES Final R esult Performing Organization Address [facility] [[email or web address]] Co de Phone Number [facility] [address] [facility] [place] [address] * (ABNORMAL) Hemoglobin A1c (08/14/2023 6:14 PM SKIP OPERATOR) Hgb A1C 11.5(H) 4.0 - 5.6 % [facility] Comment:Testing performed by : [address] [address] Estimated Average Glucose 283 mg/dL [facility] Comment: The ADA recommends reporting an estimated Average Glucose (eAG) with all Hemoglobin A1c results using the equation derived from a study of 507 normal and diabetic adults. Minority populations were underrepresented and children were not included. (Diabetes Care 31:9698-4123, 2008). The eAG is not equivalent to a fasting glucose. Testing performed by: [address] [address] Blood 08/14/2023 6:14 PM SKIP OPERATOR 08/14/2023 6:15 PM SKIP OPERATOR Luis Fernando Barragan DO LAB BLOOD ORDERABLES Final Result Performing Organization Address [facility] [[email or web address]] Co de Phone Number [facility] [address] [facility] [place] [address] * POCT lipid panel (03/16/2018 1:50 PM [...] Advance Directives For more information, please contact: [phone] * Full Code (Latest Code Status on File) Date Activated Date Inactivated Comments 08/14/2023 11:22 PM 08/16/2023 3:36 PM * Full Code Date Activated Date Inactivated Comments 02/16/2023 10:52 PM 02/22/2023 5:12 PM Care Teams Non Destructive Evaluation Technician Relationship Specialty Start Date End Date No, Physician PCP - General 08/14/23 Juan Pablo Forbes DO Internal Medicine 03/17/18 [place] [address] [facility] [address] [place] [address] Consulting Physician Endocrinology 09/01/18
--- OUTSIDE RECORDS SUMMARY | 2025-02-13 11:40 | XMS_ITS | Encounter Summary ---
Author Organization [facility] Address [address] [place] [address] Care Team Providers Care Credit Risk Associate Name Role Phone Luis M Kirkpatrick MD Unavailable [phone] Lucho Casas MD Unavailable [phone] Luis M Kirkpatrick MD Primary Care Provider [phone] Encounter Details Date Type Department Care Team (Late st Contact Info) Description 04/14/2023 Telephone [facility] - Centralized Scheduling [address] [place] [id number] Arelis Argueta MD [address] [place] [id number] Social History Tobacco Use Types Packs/Day Years Used Date Smoking Tobacco: Some Days Cigarettes 0.5 30 Smokeless Tobacco: Former Alcohol Use Standard Drinks/Week Comments Yes 0 (1 standard drink = 0.6 oz pur e alcohol) socially Comments No Sex and Gender Information Value Date Recorded Sex Assigned at Not on file Legal Sex Female 1:22 PM SLAG MOTOR OPERATOR Gender Identity Not on file Sexual Orientation Not on file documented as of this encounter Plan of Treatment Not on file documented as of this encounter Visit Diagnoses Not on filedocumented in this encounter Care Teams Credit Risk Associate Relationship Specialty Start Date End Date Luis M Kirkpatrick MD [address] [place], [place] [id number] PCP - General 11/26/21 Luis M Kirkpatrick MD [address] [place], [place] [id number] 04/16/21 Lucho Casas MD [address] [place] [address] 10/07/18 documented as of this encounter
--- OUTSIDE RECORDS SUMMARY | 2025-02-13 11:40 | XMS_ITS | Data Portability ---
Author Organization [place] [facility], Main Office Address [address] [place] [address] Care Team Providers Care Chemical Laboratory Scientist Name Role Phone DOMITILA DORMAN Primary [...] symptoms to completely resolve. She may use kwpc-imu-kvcbweh anti-inflammatori es or Tylenol for pain control. She does have ibuprofen 600 mg but only takes it as needed. Recommend she take it on a more regular basis to help with her symptoms. If her symptoms not improve she can call otherwise we will plan on seeing her back as needed. 20 minutes was spent treatment patient more than half of this in ifqi-sa-xwjq conversation Not available 11/07/2022 12:52:13 12/22/2024 12/22/2024 [...] above plan. [email or web address] Not available 12/22/2024 10:29:31 01/18/2025 01/18/2025 54-year-old female presents for evaluation of her right knee. She has referral from Jayden ADEN. She has a history of bilateral TKA done about 20 years ago. Recently, she developed pain and swelling in the right knee. She reports pain over the mediolateral tibia. There is concern for possible infection and Jayden ordered labs as performed an aspiration. She is here to follow-up on those results. She has been taking Keflex. She has not had any other treatments. She does have a history of diabetes with A1c level 7.2 Review of systems per patient questionnaire Physical exam: He has trace effusion. Tenderness over the mediolateral proximal tibia. Range of motion 0-130. Antalgic gait favoring the right side X-rays reviewed, demonstrating posterior stabilized TKA in place bilaterally, no signs of loosening, resurface patella WBC 7.5, ESR 8, CRP 1, cultures negative to date, synovial WBC 529 We reviewed her labs and discussed that those results are not consistent with septic arthritis. Her swelling seems to have gone down and she does not have significant swelling today. We will have her do a course of physical therapy and anti-inflammatori es, ibuprofen 800 was ordered. She inquired about a knee brace and we discussed that she can also use an nufk-uvl-bdddtig knee wrap as needed. She may follow-up with Jayden again as needed. She is in agreement with the plan. [email or web address] Not available 01/18/2025 09:38:21 Plan of Treatment Reminders Order Date Submit Date Provider Last Modified By Organization Details Last Modified Time Details Appointments None recorded. Lab CBC 2024 025 [email or web address] [facility], [address], [place], [address], 09:47:15 C-reactive protein, quantitati ve, serum or plasma 2024 025 [email or web address] [facility], [address], [place], [address], 08:22:26 ESR (erythrocy te sedimentat ion rate), blood 2024 025 [email or web address] [facility], [address], [place], [address], 08:22:39 Referral physical therapist referral - Please schedule patient for R knee. Thanks 2024 025 [facility], [address], [place], [address], 5 12:44:10 Procedures None recorded. Surgeries None recorded. Imaging CT, knee, w/o contrast - Please give patient disc 2024 025 [facility], [address], [place], [address], 5 17:35:18 XR, knee 2022 023 [email or web address] [facility], [address], [place], [address], 3 21:15:56 Medication Orders ibuprofen 800 mg tablet 2024 025 [email or web address] [id number], [address], [place], [place], [id number], 14:58:31 Patient TargetsNo targets recorded. Patient InstructionsNo instructions recorded. Reason for Referral Physical Therapist Referral for Pain of knee region R knee Please schedule patient for R knee. Thanks Referring Physician: Juan Pablo Mcclelland, Orthopedic Surgery, Encounter Date: 01/18/2025 Results Created Date Observation Date Name Description Value Unit Range Abnormal Flag Note LastModifiedBy Organization Detail LastModifiedTime 01/03/20 22 01/03/2022 [facility] BODY FLUID crystal negati ve Not Available [facility] (Lab) [address] [place], [address], 01/03/2022 11:59:16 01/03/20 22 01/02/[address] W/DIF F-AUT O color light- yellow Not Available [facility] (Lab) [address] [place], [address], 01/02/2022 21:27:26 01/03/20 22 01/02/[address] W/DIF F-AUT O appearance hazy Not Available [facility] (Lab) [address] [place], [address], 01/02/2022 21:27:26 01/03/20 22 01/02/[address] W/DIF F-AUT O volume 3.0 mL Not Available [facility] (Lab) [address] [place], [address], 01/02/2022 21:27:26 01/03/20 22 01/02/[address] W/DIF F-AUT O WBC, body fluid 1103 /uL Not Available [facility] (Lab) [address] [place], [address], 01/02/2022 21:27:26 01/03/20 22 01/02/[address] W/DIF F-AUT O WBC body fluid-DNR 1.[address] [facility] (Lab) [address] [place], [address], 01/02/2022 21:27:26 01/03/20 22 01/02/[address] W/DIF F-AUT O RBC, body fluid 2000 /uL Not Available [facility] (Lab) [address] [place], [address], 01/02/2022 21:27:26 01/03/20 22 01/02/[address] W/DIF F-AUT O RBC body fluid-DNR 0.[address] [facility] (Lab) [address] [place], [address], 01/02/2022 21:27:26 01/03/20 22 01/02/[address] W/DIF F-AUT O % poly 5 % Not Available [facility] (Lab) [address] [place], [address], 01/02/2022 21:27:26 01/03/20 22 01/02/[address] W/DIF F-AUT O % mono 95 % Not Available [facility] (Lab) [address] [place], [address], 01/02/2022 21:27:26 01/03/20 22 01/02/[address] W/DIF F-AUT O source synovi al Not Available [facility] (Lab) [address] [place], [address], 01/02/2022 21:27:26 01/02/20 22 01/01/2022 XR, knee, 3 view No observ ation record ed. [id number] Not Available 09/17/2022 13:35:50 11/08/19 23 XR, knee No observ ation record ed. [facility] [address], [place], [address], 11/07/2022 12:48:21 12/23/19 25 12/19/2024 XR, knee, 1 or 2 view No observ ation record ed. [email or web address] Not Available 12/22 15:44:08 12/30/19 25 12/29/2024 US, biggle x, venou s, lower extre mity No observ ation record ed. [facility] [address], [place], [address], 12/30/2024 10:09:43 Result Notes None recorded. Problems Name Problem SNOMED Code Status Onset Date Resolution Date Notes Provider Name and Address Organization Details Recorded Time Pain of right knee joint 8380863046448 00 Active 2021 Not Available [facility] 13:34:53 Pain of bilateral knee joints 8086144217180 04 Active 06/30/ 2022 Not Available [facility] 3 13:34:53 Bilateral osteoarthr itis of knees 4026264674316 07 Active 2021 Not Available [facility] 3 13:34:53 Prosthetic joint mechanical failure 870998447 Active 2024 Arleth nicole, [place] [facility] 5 09:57:54 Pain of knee region 1705514742 Active 2024 MARKIE Morataya [address], [facility] [address], [place], [address] , [facility] - [facility] 5 10:30:42 Localized swelling of right lower limb 3593971567754 9101 Active 2024 Arleth nicole, [place] [facility] 17:04:25 Problem Notes None recorded. Procedures Surgical History Date Name Laterality Status Provider Name and Address Organization Details Recorded Time Knee Surgery completed Not Available [facility] 09/17/2022 13:34:45 tonsilectomy/a denoids completed Not Available [facility] 09/17/2022 13:34:45 section completed Not Available [facility] 09/17/2022 13:34:45 Imaging Results None recorded. Procedure Notes None recorded. Medical Equipment None Reported. Allergies Allergen ID Allergen Name Allergen Category Reaction Reaction Severity Criticality Documentation Date Start Date Code Code System Note Provider Name and Address Organization Details Recorded Time 19653 lorcaseri n medicatio n Not available Not available Not available 09/17/2022 44344 01 RxNorm Not Available [facility] 3 13:35:47 91111 Bactrim medicatio n diarrhea vomiting Not available Not available Not available 09/17/2022 33170 9 RxNorm Not Available [facility] 3 13:35:47 88846 Celebrex medicatio n diarrhea vomiting Not available Not available Not available 12/22/2024 40669 7 RxNorm Verito Beto, DESIGN SALES CONSULTANT null, [place] [facility] 5 09:35:05 64417 clindamyc in Not available hives Not available Not available 12/22/2024 2582 RxNorm Verito Beto, DESIGN SALES CONSULTANT null, [place] [facility] 5 09:36:19 Medications Name Sig Start [...] Available Not Available No t Available ibuprofen 800 mg tablet TAKE 1 TABLET BY MOUTH THREE TIMES DAILY active Not Available Not Available No t Available hydrocodone 5 mg-acetamin ophen 325 mg tablet TAKE 1 TABLET BY MOUTH EVERY 4 HOURS NEEDED FOR PAIN active Not Available Not Available No t Available sotalol 80 mg tablet TAKE 1 [...] 1 CAPSULE BY MOUTH EVERY 8 HOURS active Not Available Not Available No [...] Available Not Available Not Available Dexcom G7 Flexible Machining System Machinist CHECK SUGAR LEVELS FOUR TIMES DAILY active Not Available Not Available No t Available Dexcom G7 Sensor device CHANGE SENSOR EVERY 10 DAYS. active Not Available Not Available No t Available Vitals Date Recorded Body height Provider Name an d Address Organization Details Last Updated DateTime 11/07/2022 162.56 cm MALENA Valencia [place] [facility] [place] [facility] 11/07/2022 12:10:12 Date Recorded Body height Body mass index (BMI) Body weight Provider Name and Address Organization Details Last Updated DateTime 12/22/2024 165.1 cm 34.1 kg/m2 39899.44 g Verito JUDY Pérez [facility] 12/22/2024 09:34:11 Date Recorded Body height Provider Name an d Address Organization Details Last Updated DateTime 01/16/2022 162.56 cm Not Available [facility] 13:34:47 Date Recorded Body height Body mass index (BMI) Body weight Pain severity - 0-10 verbal numeric rating [Score] - Reported Provider Name and Address Organization Details Last Updated DateTime 01/18/2025 165.1 cm 34.1 kg/m2 70594.44 g Jarrett MALENA Gomez [facility] 01/18/2025 08:48:52 Date Recorded Body height Provider Name an d Address Organization Details Last Updated DateTime 04/17/2022 162.56 cm Not Available [facility] 13:34:47 Social History Question Answer Notes LastModified by [employer] Details LastModified Time Tobacco Smoking Status Current Every Day Smoker Not Available [facility] 09/17/2022 13:34:41 How Much Tobacco Do You Smoke? 0.5 PPD Information not available 12/22/2024 How Many Years Have You Smoked Tobacco? 30 Information not available 12/22/2024 Sex: Unknown Functional Status Question Answer Note LastModified by [employer] Details LastModified Time What is your level of alcohol consumption? Occasional [id number] Information not available 09/17/2022 Mental Status [...] HAVE YOU BEEN HOSPITALIZED OR SEEN IN [facility] IN THE PAST YEAR ? N BURSITIS [...] SNOMED-CT Code Diagnosis ICD10 Code Diagnosis Note [id number] Fady Wilde MD S[facility] [address] 01/02/2022 00:00:00 01/20/2022 16:25:[id number] [facility] [address] 01/16/2022 00:00:00 01/20/2022 16:36:07 [id number] MARKIE Angulo [facility] [address] [address] 04/17/2022 00:00:00 04/17/2022 15:51:11 [id number] Fady Wilde MD [facility] [address] [place] [address] 11/07/2022 12:00:50 11/07/2022 12:54:24 Pain of right knee joint 3788334976 18395 M25.081 [id number] Juan Pablo Mcclelland MD [facility] [address] [place] [address] 12/22/2024 09:12:25 12/22/2024 10:35:37 Pain of right knee joint 6130685160 44784 M25.561 History of right total knee replacement 7730034381 550248 Z96.651 Pain of knee region 1003 882121 T84.84XA Z96.659 History of left total knee replacement 2624684838 834356 Z96.744 [id number] Juan Pablo Mcclelland MD [facility] [address] [place] [address] 01/18/2025 08:46:29 01/18/2025 09:30:58 Pain of knee region 3849170675 T84.84XA Z96.659 Health Concerns Section Related Observation LastModified by Organization Detai ls LastModified Time None Recorded Concern Status LastModified by Organization Details LastModified Time None Recorded Advance Directives Directive None Recorded Payers Insurance Date Sequence Insurance Name Policy Number Policy [place] Covered Member ID Skaggs Member ID Guarantor Name 01/17/[address] [facility] - DOS ON OR AFTER 21 (MEDICAID REPLACEMENT - HMO) Whit Segovia [id number] Whit Segovia Notes Date Note Type Note [...] the patient did have x-rays done at [facility] recently on December 19. She had [...] sweats otherwise feels well. MARKIE Morataya [address] [facility] [address], [place], [address], [place] [facility] 12/22/2024 10:40:51 OBGyn Episode No OBEpisode recorded.
--- OUTSIDE RECORDS SUMMARY | 2025-02-13 11:40 | XMS_ITS | Clinical Summary ---
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 Gender Identity Not on file Sexual Orientation Not on file Plan of Treatment Health Maintenance Due Date Last Done Comments Hepatitis C Virus (HCV) Screening 1969 TdaP Immunization 1969 Hepatitis B Immunization (1 of 3 - 19+ 3-dose series) 02/10/1988 Pap Smear 1990 Cervical Cancer Screening (CCS) 1999 HPV/Cotest 1999 Cologuard 2014 Colonoscopy 2014 Colorectal Cancer Screening 2014 Immunochemical Fecal Occult Blood 2014 Pneumococcal Immunization (5 0+ years) (1 of 1 - PCV) 2019 Zoster Immunization (1 of 2) 2019 SARS-COV-2 Immunization (3 - 2023- season) 2024 10/23/2020, 09/30/2020 Influenza Immunization (#1) 2025 Respiratory Syncytial Virus (RSV) Immunization (Adult) (1 - 1-dose 75+ series) 02/10/2044 Human Papillomavirus (HPV) Immunization Aged Out No longer eligible b ased on patient's age to complete this topic Meningococcal Immunization (ACWY) Aged Out No longer eligible b ased on patient's age to complete this topic Rotavirus Immunization Aged Out No lo nger eligible based on patient's age to complete this topic
--- OUTSIDE RECORDS SUMMARY | 2025-02-13 11:40 | XMS_ITS | Clinical Summary ---
Author Organization [facility] Address [address] [place] [address] Care Team Providers Care Member Of Parliament Name Role Phone Luis M Kirkpatrick MD Unavailable [phone] Lucho Casas MD Unavailable Luis M Kirkpatrick MD Primary Care Provider [phone] Source Comments [facility],non-owned Affiliates and Associated Physician Practices is amultiple site organization consisting of ambulatory clinics and hospital sitesin [place], [place], [place] and [place]. This disclosure is being madepursuant to the [...] on file Legal Sex Female 1:22 PM POLE CLIMBER Gender Identity Not on file Sexual Orientation Not on file Last Filed Vital Signs Vital Sign Reading Time Taken Comments Blood Pressure 146/85 09/15/2023 11:07 AM POLE CLIMBER Pulse 93 09/15/2023 11:07 AM POLE CLIMBER Temperature 36.5 C (97.7 F) 06/09/2023 10:42 AM POLE CLIMBER Respiratory Rate 18 06/09/2023 10:42 AM POLE CLIMBER Oxygen Saturation 96% 09/15/2023 11:07 AM POLE CLIMBER Inhaled Oxygen Concentration - - Weight 105.2 kg (232 lb) 09/15/2023 11:07 AM POLE CLIMBER Height 165.1 cm (5' 5) 09/15/2023 11:07 AM POLE CLIMBER Body Mass Index 38.61 09/15/2023 11:07 AM POLE CLIMBER Plan of Treatment Health Maintenance Due Date [...] CARE (AMB) [facility] Routine 06/09/2023 11:02 AM POLE CLIMBER Diabetes mellitus type 2, insulin dependent MICROALB/CREAT RATIO URINE RANDOM PANEL Routine 01/28/2022 1:09 PM CDT Diabetes mellitus type 2, insulin dependent COMPREHENSIVE METABOLIC PANEL Routine 01/28/2022 1:09 PM CDT Diabetes mellitus type 2, insulin dependent from Last 3 Months or Most Recently Relevant to Health Maintenance Results * HEMOGLOBIN A1C - POINT OF CARE (AMB) [facility] (06/09/2023 11:02 AM POLE CLIMBER) Hemoglobin A1c POCT 11.9 % [address] BLOOD SPECIMEN / Unknown 06/09/2023 11:02 AM POLE CLIMBER us Arelis Argueta MD LAB - POINT OF CARE ORDERABLES Final Result [address], [place] [address], [facility] [phone] * MICROALB/CREAT RATIO URINE RANDOM PANEL (01/28/2022 1:09 PM CDT) Albumin Random Urine 6.3 Not Established ug/mL 01/28/2022 1:54 PM CDT [facility] Creatinine Urine 54 Not Established mg/dL 01/28/2022 1:54 PM CDT [facility] Urine Albumin/Creati nine Ratio 12 <30 mg/g 01/28/2022 1:54 PM CDT [facility] Urine URINE SPECIMEN OBTAINED BY CLEAN CATCH PROCEDURE / Unknown Collection / Unknown 01/28/2022 1:09 PM CDT 01/28/2022 1:29 PM CDT us Emma Vieira MD LAB - URINE CHEMISTRY ORDERABLES Final Result [facility] [address] [place] [address], [facility] [phone] * (ABNORMAL) COMPREHENSIVE METABOLIC PANEL (01/28/2022 1:09 PM [facility]) BUN 9 7 - 26 mg/dL 01/28/2022 2:02 PM [facility] Creatinine 0.50(L) 0.56 - 0.96 mg/dL 01/28/2022 2:02 PM [facility] Sodium 142 136 - 145 mmol/L 01/28/2022 2:02 PM [facility] Potassium 3.7 3.5 - 4.5 mmol/L 01/28/2022 2:02 PM [facility] Chloride 102 98 - 107 mmol/L 01/28/2022 2:02 PM [facility] CO2 27 22 - 29 mmol/L 01/28/2022 2:02 PM [facility] Glucose 97 70 - 115 mg/dL 01/28/2022 2:02 PM [facility] Calcium 9.6 8.4 - 10.2 mg/dL 01/28/2022 2:02 PM [facility] Protein Total 7.5 6.0 - 8.3 g/dL 01/28/2022 2:02 PM [facility] Albumin 4.1 3.4 - 5.0 g/dL 01/28/2022 2:02 PM [facility] Bilirubin Total 0.6 0.2 - 1.2 mg/dL 01/28/2022 2:02 PM [facility] Alkaline Phosphatase 65 40 - 150 U/L 01/28/2022 2:02 PM [facility] ALT 17 5 - 55 U/L 01/28/2022 2:02 PM [facility] AST 16 5 - 34 U/L 01/28/2022 2:02 PM [facility] Anion Gap 17 8 - 18 01/28/2022 2:02 PM [facility] BUN/Creatinine Ratio 18 7 - 23 01/28/2022 2:02 PM [facility] Osmolality Calculated 293 270 - 300 mOsm/kg 01/28/2022 2:02 PM [facility] Albumin/Globulin Ratio 1.2 1.1 - 2.3 01/28/2022 2:02 PM T [facility] eGFR by CKD-EPI >90 >=90 mL/min/1.7 3 m2 01/28/2022 2:02 PM T [facility] Blood BLOOD SPECIMEN / Unknown Lab Venipuncture / Unknown 01/28/2022 1:09 PM CDT 01/28/2022 1:33 PM CDT Emma Vieira MD LAB - CHEMISTRY ORDERABLES Final Result [facility] [address] [place] [address], [facility] [phone] from Last 3 Months or Most Recently Relevant to Health Maintenance Insurance [facility] SELF PAY NO INSURANCE Member Subscriber Plan / Payer (Ef fective for All Dates) Name:Whit Segovia Member ID:Not on file Relation to Subscriber:Not on file Name:WHIT SEGOVIA Subscriber ID:Not on file (Home) Address: [address] [place] [address] Payer ID:Not on file Group ID:Not on file Type:Self Pay Address: [place], [place] [facility] Care Teams Member Of Parliament Relationship Specialty Start Date End Date Luis M Kirkpatrick MD [address] [address] PCP - General 11/26/21 Luis M Kirkpatrick MD [address] [address] 04/16/21 Lucho Casas MD [address] [place] [address] 10/07/18
--- OUTSIDE RECORDS SUMMARY | 2025-02-13 11:40 | XMS_ITS | Clinical Summary ---
Author Organization [facility] Address [address] [place] [address] Care Team Providers Care Electrical Engineering Director Name Role Phone SharifamattyJuan Pablo baker Javi [...] patient's age to complete this topic Insurance JIMICATOOSA Care Teams Electrical Engineering Director Relationship Specialty Start Date End Date Juan Pablo Forbes DO [address] [place] [address] PCP - General INTERNAL MEDICINE 12/02/17
--- OUTSIDE RECORDS SUMMARY | 2025-02-13 11:40 | XMS_ITS | Encounter Summary ---
Author Organization [facility] Address [address] [facility] [place] [address] Care Team Providers Care Cardiothoracic Icu Rn Name Role Phone Luis M Kirkpatrick MD Unavailable [phone] Lucho Casas MD Unavailable [phone] Luis M Kirkpatrick MD Primary Care Provider [phone] Reason for Visit * Reason Onset Date Comments MEDICATION REFILL 08/04/2022 Encounter Details Date Type Department Care Team (Late st Contact Info) Description 08/04/2022 Refill [facility] [address] [place] [phone] Db Sue MD [address] [place] [address] MEDICATION REFILL Social History Tobacco Use Types Packs/Day Years Used Date Smoking Tobacco: Some Days Cigarettes 0.5 30 Smokeless Tobacco: Former Alcohol Use Standard Drinks/Week Comments Yes 0 (1 standard drink = 0.6 oz pur e alcohol) socially Comments No Sex and Gender Information Value Date Recorded Sex Assigned at Not on file Legal Sex Female 1:22 PM COOK TACO Gender Identity Not on file Sexual Orientation Not on file documented as of this encounter Miscellaneous Notes * Telephone Encounter - Silva Belle LPN - 08/04/2022 9:59 AM CST ERROR TACO documented in this encounter Plan of Treatment Not on file documented as of this encounter Visit Diagnoses Diagnosis Diabetes mellitus type 2, insulin dependent (HCC)- Primary Type II or unspecified type diabetes mellitus without mention of complication, not stated as uncontrolled documented in this encounter Care Teams Cardiothoracic Icu Rn Relationship Specialty Start Date End Date Luis M Kirkpatrick MD [address] [place] [address] PCP - General 11/26/21 Luis M Kirkpatrick MD [address] [place] [address] 04/16/21 Lucho Casas MD [address] [place] [address] 10/07/18 documented as of this encounter
== END 2025-02-11 14:20 | disposition home or self-care (01) | DRG 720 ==
PROVIDERS: Internal Medicine; Admitting Provider Surgery; PCP Nurse Practitioner Family; Visit Provider Surgery
PROC: 0J9M0ZX Drainage of Left Upper Leg Subcutaneous Tissue and Fascia, Open Approach, Diagnostic (ICD-10-PCS; principal; 2025-02-08 14:30)
DX: A41.9 Sepsis, unspecified organism (principal); L02.214 Cutaneous abscess of groin; L03.314 Cellulitis of groin; L02.412 Cutaneous abscess of left axilla; N76.2 Acute vulvitis; L73.2 Hidradenitis suppurativa; E11.65 Type 2 diabetes mellitus with hyperglycemia; I48.0 Paroxysmal atrial fibrillation; F17.210 Nicotine dependence, cigarettes, uncomplicated; Z79.4 Long term (current) use of insulin; Z79.01 Long term (current) use of anticoagulants; E66.9 Obesity, unspecified; Z68.32 Body mass index [BMI] 32.0-32.9, adult
CPT/HCPCS: 36415; 80048; 80053; 80202; 82565; 82948; 83036; 83605; 84145; 85025; 85027; 86140; 87040; 87070; 87075; 87205; 87641; 93005; A9270; J0696; J1815; J2003; J2004; J2250; J2270; J2704; J3010; J3373; J7030; J7050; J7120

== ENCOUNTER 2025-04-06 15:15 | Inpatient (IN) | payer OTHER, SELFPAY ==
[2025-04-06] VITALS (9 sets, daily range): BP systolic 106–150; BP diastolic 52–84; PULSE 90–100; RESP 14–20; TEMP 36.4–37.2; O2SAT 93–99; BMI 32.1
--- OUTSIDE RECORDS SUMMARY | 2025-04-06 15:02 | XMS_ITS | Encounter Summary ---
Author Organization [facility] Address [address] [facility] [place] [address] Care Team Providers Care Local Flatbed Driver Name Role Phone Luis M Kirkpatrick MD Unavailable [phone] Lucho Casas MD Unavailable [phone] Luis M Kirkpatrick MD Primary Care Provider [phone] Encounter Details Date Type Department Care Team (Late st Contact Info) Description 05/13/2023 Telephone [facility] Endocrinology [address] [place] [address], [facility] [place] [address] Arelis Argueta MD [address] [place] [address] [place] [address] Social History Tobacco Use Types Packs/Day Years Used Date Smoking Tobacco: Some Days Cigarettes 0.5 30 Smokeless Tobacco: Former Alcohol Use Standard Drinks/Week Comments Yes 0 (1 standard drink = 0.6 oz pur e alcohol) socially Comments No Sex and Gender Information Value Date Recorded Sex Assigned at Not on file Legal Sex Female 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 Can you please let her know. If [...] Thanks so much. Patient Call Back number: [phone] documented in this encounter Plan of Treatment Not on file documented as of this encounter Visit Diagnoses Not on filedocumented in this encounter Care Teams Local Flatbed Driver Relationship Specialty Start Date End Date Luis M Kirkpatrick MD [address] [place] [address] PCP - General 11/26/21 Luis M Kirkpatrick MD [address] [place] [address] 04/16/21 Lucho Casas MD [address] [place] [address] 10/07/18 documented as of this encounter
--- OUTSIDE RECORDS SUMMARY | 2025-04-06 15:02 | XMS_ITS | Encounter Summary ---
Author Organization [facility] Address [address] [place] [address] Care Team Providers Care Children'S Attendant Name Role Phone Luis M Kirkpatrick MD Unavailable [phone] Lucho Casas MD Unavailable [phone] Luis M Kirkpatrick MD Primary Care Provider [phone] Encounter Details Date Type Department Care Team (Late st Contact Info) Description 04/14/2023 Telephone [facility] - Central[facility] Scheduling [address] [place] [phone] Arelis Argueta MD [address] [address] Social History Tobacco Use Types Packs/Day Years Used Date Smoking Tobacco: Some Days Cigarettes 0.5 30 Smokeless Tobacco: Former Alcohol Use Standard Drinks/Week Comments Yes 0 (1 standard drink = 0.6 oz pur e alcohol) socially Comments No Sex and Gender Information Value Date Recorded Sex Assigned at Not on file Legal Sex Female 1:22 PM 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
--- OUTSIDE RECORDS SUMMARY | 2025-04-06 15:02 | XMS_ITS | Encounter Summary ---
Author Organization [facility] Address [address] [facility] [place] [address] Care Team Providers Care Operations Planner Name Role Phone Luis M Kirkpatrick MD Primary Care Provider [phone] Lucho Casas MD Primary Care Provider [phone] Luis M Kirkpatrick MD Unavailable [phone] Lucho Casas MD Unavailable [phone] Luis M Kirkpatrick MD Primary Care Provider [phone] Reason for Visit * Reason Onset Date Comments Medication Prior Auth Request 01/24/2019 Encounter Details Date Type Department Care Team (Late st Contact Info) Description 01/24/2019 Telephone [facility]in[facility], Diabetes and Metabolism [address] [place] [address] Timo Us MD [address] [place] [address] Medication Prior Auth Request Social History Tobacco Use Types Packs/Day Years Used Date Smoking Tobacco: Never Smokeless Tobacco: Never Alcohol Use Standard Drinks/Week Comments Yes 0 (1 standard drink = 0.6 oz pur e alcohol) Comments Unknown Sex and Gender Information Value Date Recorded Sex Assigned at Not on file Legal Sex Female 1:22 PM DYNAMOMETER REPAIRER Gender Identity Not on file Sexual Orientation [...] a PA for this Rx as well. [facility] documented in this encounter Plan of Treatment Not on file documented as of this encounter Visit Diagnoses Not on filedocumented in this encounter Care Teams Operations Planner Relationship Specialty Start Date End Date Luis M Kirkpatrick MD [address] [place] [address] PCP - General 10/07/18 04/15/21 Lucho Casas MD [address] [place] [address] PCP - General 04/16/21 11/25/21 Luis M Kirkpatrick MD [address] [place] [address] PCP - General 11/26/21 Luis M Kirkpatrick MD [address] [place] [address] 04/16/21 Lucho Casas MD [address] [place] [address] 10/07/18 documented as of this encounter
--- OUTSIDE RECORDS SUMMARY | 2025-04-06 15:02 | XMS_ITS | Clinical Summary ---
Author Organization [facility] Address [address] [place] [address] Care Team Providers Care Photostat Operator Helper Name Role Phone SharifamattyJuan Pablo baker Javi [...] COVID-19 Vaccine (1 - 2023-2 5 season) 2025 Meningococcal B Vaccine Aged Out No l onger eligible based on patient's age to complete this topic Meningococcal Vaccine Aged Out No angélica lloyd eligible based on patient's age to complete this topic RSV Immunizations Under 20 Months Aged Out No longer eligible based on patient's age to complete this topic Insurance [place] Care Teams Photostat Operator Helper Relationship Specialty Start Date End Date Juan Pablo Forbes DO [address] [place] [address] PCP - General INTERNAL MEDICINE 12/02/17
--- OUTSIDE RECORDS SUMMARY | 2025-04-06 15:02 | XMS_ITS | Encounter Summary ---
Author Organization [facility] Address [address] [facility] [place] [address] Care Team Providers Care Top Dyeing Machine Loader Name Role Phone Luis M Kirkpatrick MD Unavailable [phone] Lucho Casas MD Unavailable [phone] Luis M Kirkpatrick MD Primary Care Provider [phone] Encounter Details Date Type Department Care Team (Late st Contact Info) Description 05/27/2023 Telephone [facility] - [facility] Scheduling [address] [place] [phone] Arelis Argueta MD [facility] [place] [address] Social History Tobacco Use Types Packs/Day Years Used Date Smoking Tobacco: Some Days Cigarettes 0.5 30 Smokeless Tobacco: Former Alcohol Use Standard Drinks/Week Comments Yes 0 (1 standard drink = 0.6 oz pur e alcohol) socially Comments No Sex and Gender Information Value Date Recorded Sex Assigned at Not on file Legal Sex Female 1:22 PM MEAT SMOKER Gender Identity Not on file Sexual Orientation Not on file documented as of this encounter Miscellaneous Notes * Telephone Encounter - Romain Ridley MA - 05/27/2023 11:44 AM CST Called patient. To let her know that Dr. Berry sent her prescriptions into the pharmacy. Patient did not answer. Left voice mail to call office back. SMOKER * Telephone Encounter - Oscar Sainilucía - 05/27/2023 9:15 AM CST Patient called in requesting a Med refill. Drug type: dulaglutide (Trulicity) 1.5 MG/0.5ML injection, insulin pen needle (B-D UF III MINI PEN NEEDLES) 31G X 5 MM needle and one touch ultra test strips. Pharmacy:[facility] [address] [place] [address] Patient call back number: [phone]. States thatshe is running out of medication. Is frustrated because she was told that Dr. Meza would be fillingher meds because Dr. Quintana is certified through [place]. Reached out to SCOTT Hoyos regarding this concern and was advised that Dr. Meza isn't here today. Ms. Segovia would like a call back to discuss further steps. Callback number listed above. . SMOKER documented in this encounter Plan of Treatment Not on file documented as of this encounter Visit Diagnoses Not on filedocumented in this encounter Care Teams Top Dyeing Machine Loader Relationship Specialty Start Date End Date Luis M Kirkpatrick MD [address] [place] [address] PCP - General 11/26/21 Luis M Kirkpatrick MD [address] [place] [address] 04/16/21 Lucho Casas MD [address] [place] [address] 10/07/18 documented as of this encounter
--- OUTSIDE RECORDS SUMMARY | 2025-04-06 15:02 | XMS_ITS | Encounter Summary ---
Author Organization [facility] Address [address] [facility] [place] [address] Care Team Providers Care Tennis Court Attendant Name Role Phone Luis M Kirkpatrick MD Unavailable [phone] Lucho Casas MD Unavailable [phone] Luis M Kirkpatrick MD Primary Care Provider [phone] Encounter Details Date Type Department Care Team (Late st Contact Info) Description 04/23/2023 Telephone [facility] - [facility] Scheduling [address] [place] [address] Arelis Argueta MD [address] [place] [address] Social History Tobacco Use Types Packs/Day Years Used Date Smoking Tobacco: Some Days Cigarettes 0.5 30 Smokeless Tobacco: Former Alcohol Use Standard Drinks/Week Comments Yes 0 (1 standard drink = 0.6 oz pur e alcohol) socially Comments No Sex and Gender Information Value Date Recorded Sex Assigned at Not on file Legal Sex Female 1:22 PM THERAPY AIDE Gender Identity Not on file Sexual Orientation Not on file documented as of this encounter Plan of Treatment Not on file documented as of this encounter Visit Diagnoses Not on filedocumented in this encounter Care Teams Tennis Court Attendant Relationship Specialty Start Date End Date Luis M Kirkpatrick MD [address] [place], [place] [address] PCP - General 11/26/21 Luis M Kirkpatrick MD [address] [place], [place] [address] 04/16/21 Lucho Casas MD [address] [place] [address] 10/07/18 documented as of this encounter
--- OUTSIDE RECORDS SUMMARY | 2025-04-06 15:02 | XMS_ITS | Encounter Summary ---
Author Organization [facility] Address [address] [place] [address] Care Team Providers Care Tool Grinder Operator Surface Name Role Phone Luis M Kirkpatrick MD Unavailable Lucho Casas MD Unavailable [phone] Luis M Kirkpatrick MD Primary Care Provider [phone] Encounter Details Date Type Department Care Team (Late st Contact Info) Description 05/29/2023 Telephone [facility] - Endocrinology [address] [place] [address], [place] [address] Sobia Meza MD [address] [place] [id number] Social History Tobacco Use Types Packs/Day Years Used Date Smoking Tobacco: Some Days Cigarettes 0.5 30 Smokeless Tobacco: Former Alcohol Use Standard Drinks/Week Comments Yes 0 (1 standard drink = 0.6 oz pur e alcohol) socially Comments No Sex and Gender Information Value Date Recorded Sex Assigned at Not on file Legal Sex Female 1:22 PM PROJECT CONTROLLER Gender Identity Not on file Sexual Orientation Not on file documented as of this encounter Miscellaneous Notes * Telephone Encounter - Riggs Elana - 05/29/2023 8:32 AM CST Patient called in requesting a Med refill. Drug type:LANTUS PEN, ONE TOUCH ULTRA STRIPS, AND PEN NEEDLES BUT MAY NEED A SUBSTITUTE BRAND OF PEN NEEDLES DUE TO INSURANCE NOT COVERING. Pharmacy:[id number] - [address] [facility] [address] [facility] [address] Patient call back number: [phone] . PATIENT ALSO STATES HER BLOOD SUGAR IS STILL IN THE 300'S AND WOULD LIKE A CALL FROM THE OFFICE. ECT CONTROLLER documented in this encounter Plan of Treatment Not on file documented as of this encounter Visit Diagnoses Not on filedocumented in this encounter Care Teams Tool Grinder Operator Surface Relationship Specialty Start Date End Date Luis M Kirkpatrick MD [address] [place] [address] PCP - General 11/26/21 Luis M Kirkpatrick MD [address] [place] [address] 04/16/21 Lucho Casas MD [address] [place] [address] 10/07/18 documented as of this encounter
--- OUTSIDE RECORDS SUMMARY | 2025-04-06 15:02 | XMS_ITS | Encounter Summary ---
Author Organization [facility] Address [address] [facility] [place] [address] Care Team Providers Care Hyperbaric Nurse Name Role Phone Luis M Kirkpatrick MD Unavailable [phone] Lucho Casas MD Unavailable [phone] Luis M Kirkpatrick MD Primary Care Provider [phone] Encounter Details Date Type Department Care Team (Late st Contact Info) Description 05/27/2023 Telephone [facility] - Endocrinology [address] [place] [address], [facility] [place] [address] Arelis Argueta MD [address] [place] [address] [place] [address] Social History Tobacco Use Types Packs/Day Years Used Date Smoking Tobacco: Some Days Cigarettes 0.5 30 Smokeless Tobacco: Former Alcohol Use Standard Drinks/Week Comments Yes 0 (1 standard drink = 0.6 oz pur e alcohol) socially Comments No Sex and Gender Information Value Date Recorded Sex Assigned at Not on file Legal Sex Female 1:22 PM WAITER/WAITRESS HEAD Gender Identity Not on file Sexual Orientation Not on file documented as of this encounter Miscellaneous Notes * Telephone Encounter - Arelis Argueta MD - 05/29/2023 12:08 PM CST Done ER/WAITRESS HEAD * Telephone Encounter - Lia Grier LPN [...] doesn't want to go to the ER ER/WAITRESS HEAD * Telephone Encounter - Tarsha Cedillo - [...] two doses remaining Patient Call Back number: [phone] ER/WAITRESS HEAD documented in this encounter Plan of Treatment Not on file documented as of this encounter Visit Diagnoses Not on filedocumented in this encounter Care Teams Hyperbaric Nurse Relationship Specialty Start Date End Date Luis M Kirkpatrick MD [address] [place] [address] PCP - General 11/26/21 Luis M Kirkpatrick MD [address] [place] [address] 04/16/21 Lucho Casas MD [address] [place] [address] 10/07/18 documented as of this encounter
--- OUTSIDE RECORDS SUMMARY | 2025-04-06 15:02 | XMS_ITS | Clinical Summary ---
Author Organization [facility] Physician [facility] Building [address] [place] [address] Care Team Providers Care Dot Compliance Coordinator Name Role Phone Juan Pablo Forbes DO Unavailable [phone] Connor Barton MD Unavailable [phone] No, Physician Primary Care Provider [phone] Allergies Active Allergy Reactions Criticality Noted Date Comments Bacitracin Vomiting Low 03/16/2018 Sulfamethoxazole-Trimethoprim Diarrhea,Vomiting Low 05/13/2022 Celecoxib Nausea & Vomiting Low 03/16/2018 Clindamycin Hives Medium 03/16/2018 Propoxyphene-Acetaminophen Nausea & Vomiting Low Medications blood glucose diagnostic stripIndication s:Type 2 diabetes mellitus with hyperglycemia, with long-term current use of insulin ([facility]) accu-check guide test strips test blood sugars five times every day dx:E11.65 insulin dependent 150 each 3 8 Active FLUoxetine (PROzac) 20 mg capsule Take 1 capsule (20 mg total) by mouth 2 (two) times a day 0 8 Active metFORMIN (GLUCOPHAGE) 1,000 mg tabletIndicatio ns:Type 2 diabetes mellitus with hyperglycemia, with long-term current use of insulin ([facility]) TAKE 1 TABLET(1000 MG) BY [...] 03/17/2018 Assessment & Plan (08/20/2018 4:20 PM AGRICULTURAL SYSTEMS SPECIALIST): Diabetes is improving with treatment. Reviewed [...] . Assessment & Plan (06/21/2018 7:03 AM AGRICULTURAL SYSTEMS SPECIALIST): Diabetes is improving with treatment. Reviewed [...] . Assessment & Plan (05/23/2018 8:52 PM AGRICULTURAL SYSTEMS SPECIALIST): Diabetes is improving with treatment. A1c [...] type 2, - patho physiology, short and termination clerk complications of uncontrolled DM, diet and exercise [...] 03/17/2018 Assessment & Plan (08/20/2018 4:21 PM AGRICULTURAL SYSTEMS SPECIALIST): Hypertension is chronic, well controlled Continue current treatment regimen. Dietary sodium restriction. Weight loss. Regular aerobic exercise. Continue current medications. Blood pressure will be reassessed at the next regular appointment. Assessment & Plan (06/21/2018 7:04 AM AGRICULTURAL SYSTEMS SPECIALIST): Hypertension is chronic, well controlled Continue [...] 03/17/2018 Assessment & Plan (08/20/2018 4:21 PM AGRICULTURAL SYSTEMS SPECIALIST): Pt. On statin therapy Nutrition counseling provided Advised to increase aerobic exercise Assessment & Plan (06/21/2018 7:04 AM AGRICULTURAL SYSTEMS SPECIALIST): Pt. On statin therapy Nutrition counseling provided Advised to increase aerobic exercise Assessment & Plan (03/17/2018 7:44 AM CDT): Pt. On statin therapy Nutrition counseling provided Advised to increase aerobic exercise Insulin pump status 03/17/2018 Assessment & Plan (08/20/2018 4:21 PM AGRICULTURAL SYSTEMS SPECIALIST): Have long acting , basal insulin [...] 02/18 Assessment & Plan (08/20/2018 4:21 PM AGRICULTURAL SYSTEMS SPECIALIST): Obesity is improving with lifestyle modifications. [...] discussed. Assessment & Plan (06/21/2018 7:04 AM AGRICULTURAL SYSTEMS SPECIALIST): Obesity is improving with lifestyle habits [...] History Date Comments Type 2 diabetes mellitus Arthritis Family History Medical History Relation Name Comments Diabetes Brother Diabetes Father Diabetes Sister Relation Name Status Comments Brother Father Sister Social History Tobacco Use Types Packs/Day Years Used Date Smoking Tobacco: Every Day Cigarettes 0.3 44.7 Started: 1981 Smokeless Tobacco: Never Tobacco Cessation:Ready to Q uit: Not Asked; Counseling Given: Not Answered Alcohol Use Standard Drinks/Week Comments Yes 0 (1 standard drink = 0.6 oz pur e alcohol) Social Connection and Isolation Panel Answer Date Recorded In a typical week, [...] any clubs o r organizations such as bahai groups, unions, fraternal or athletic groups, or [...] place to sleep or slept in a senior care (including now)? No 02/17/2023 Personal Safety Answer Date Recorded Have you ever been in or are you currently in a harmful physical or emotional relationship or is someone making you feel afraid or unsafe? Denies 08/15/2023 Comments No Sex and Gender Information Value Date Recorded Sex Assigned at Not on file Legal Sex Female 6:30 AM AGRICULTURAL SYSTEMS SPECIALIST Gender Identity Not on file Sexual Orientation Not on file Obstetrics History Last Filed Vital Signs Vital Sign Reading Time Taken Comments Blood Pressure 153/90 08/16/2023 7:30 AM AGRICULTURAL SYSTEMS SPECIALIST Pulse 87 08/16/2023 7:30 AM AGRICULTURAL SYSTEMS SPECIALIST Temperature 36.8 C (98.2 F) 08/16/2023 7:30 AM AGRICULTURAL SYSTEMS SPECIALIST Respiratory Rate 18 08/16/2023 7:30 AM AGRICULTURAL SYSTEMS SPECIALIST Oxygen Saturation 99% 08/16/2023 7:30 AM AGRICULTURAL SYSTEMS SPECIALIST Inhaled Oxygen Concentration - - Weight 100.7 kg (222 lb 0.1 oz) 024 11:25 PM AGRICULTURAL SYSTEMS SPECIALIST Height 165.1 cm (5' 5) 08/14/2023 11:2 5 PM AGRICULTURAL SYSTEMS SPECIALIST Body Mass Index 36.94 08/14/2023 11:25 PM AGRICULTURAL SYSTEMS SPECIALIST Plan of Treatment Health Maintenance Due [...] 08/14/2023, 08/0 07/2022, 12/27/2019, Additional history exists eGFR 08/15/2024 08/15/2023, 07/21, 08/14/2023, Additional history exists Covid-19 Vaccine (2024-08 6 season) 2025 12/21/2021, 08/03/2021 Influenza Vaccine (#1) 2025 08/16/2023, 2020 Zoster Vaccine Completed 02/19/2022, 12/21/2021 Procedures Procedure Name Priority Date/Time Associated Diagnosis Comments EGFR Routine 08/15/2023 4:36 AM AGRICULTURAL SYSTEMS SPECIALIST HEMOGLOBIN A1C STAT 08/14/2023 6:14 PM AGRICULTURAL SYSTEMS SPECIALIST POCT LIPID PANEL Routine 03/16/2018 1:50 PM CDT Type 2 diabetes mellitus with hyperglycemia, with long-term current use of insulin (HCC) from Last 3 Months or Most Recently Relevant to Health Maintenance Results * eGFR (08/15/2023 4:36 AM AGRICULTURAL SYSTEMS SPECIALIST) eGFR 118 mL/min/1. 73 m2 JER [...] last reviewed 2021. Blood 08/15/2023 4:36 AM AGRICULTURAL SYSTEMS SPECIALIST 08/15/2023 4:36 AM AGRICULTURAL SYSTEMS SPECIALIST Drew Early MD LAB BLOOD ORDERABLES Final R esult Performing Organization Address City/[facility] Co de Phone Number [facility] [address] [place] [address] * (ABNORMAL) Hemoglobin A1c (08/14/2023 6:14 PM AGRICULTURAL SYSTEMS SPECIALIST) Hgb A1C 11.5(H) 4.0 - 5.6 % JER Comment:Testing performed by : [address] [address] Estimated Average Glucose 283 mg/dL JER Comment: The ADA recommends reporting an estimated Average Glucose (eAG) with all Hemoglobin A1c results using the equation derived from a study of 507 normal and diabetic adults. Minority populations were underrepresented and children were not included. (Diabetes Care 31:1695-5853, 2008). The eAG is not equivalent to a fasting glucose. Testing performed by: [facility], [address] [place] [address]., [id number] Blood 08/14/2023 6:14 PM AGRICULTURAL SYSTEMS SPECIALIST 08/14/2023 6:15 PM AGRICULTURAL SYSTEMS SPECIALIST us Luis Fernando Barragan DO LAB BLOOD ORDERABLES Final Result Performing Organization Address [facility] de Phone Number [facility] [address] [place] [address] * POCT lipid panel (03/16/2018 1:50 PM [...] Advance Directives For more information, please contact: [phone] * Full Code (Latest Code Status on File) Date Activated Date Inactivated Comments 08/14/2023 11:22 PM 08/16/2023 3:36 PM * Full Code Date Activated Date Inactivated Comments 02/16/2023 10:52 PM 02/22/2023 5:12 PM Care Teams Dot Compliance Coordinator Relationship Specialty Start Date End Date No, Physician PCP - General 08/14/23 Juan Pablo Forbes DO Internal Medicine 03/17/18 [place] [address] [facility] [address] [place] [address] Consulting Physician Endocrinology 09/01/18
--- OUTSIDE RECORDS SUMMARY | 2025-04-06 15:02 | XMS_ITS | Clinical Summary ---
Author Organization [facility] Address [address] [place] [address] Care Team Providers Care Board Runner Name Role Phone Luis M Kirkpatrick MD Unavailable [phone] Lucho Casas MD Unavailable [phone] Luis M Kirkpatrick MD Primary Care Provider [phone] Source Comments [facility],non-owned Affiliates and Associated Physician Practices is amultiple site organization consisting of ambulatory clinics and hospital sitesin [place], [place], [place] and [place]. This disclosure is being madepursuant to the Care Everywhere program and may not contain all information available regarding this patient. Last updated 18.[facility] Allergies Active Allergy Reactions Criticality Noted [...] on file Legal Sex Female 1:22 PM DEFECTIVE CIGARETTE SLITTER Gender Identity Not on file Sexual Orientation Not on file Last Filed Vital Signs Vital Sign Reading Time Taken Comments Blood Pressure 146/85 09/15/2023 11:07 AM DEFECTIVE CIGARETTE SLITTER Pulse 93 09/15/2023 11:07 AM DEFECTIVE CIGARETTE SLITTER Temperature 36.5 C (97.7 F) 06/09/2023 10:42 AM DEFECTIVE CIGARETTE SLITTER Respiratory Rate 18 06/09/2023 10:42 AM DEFECTIVE CIGARETTE SLITTER Oxygen Saturation 96% 09/15/2023 11:07 AM DEFECTIVE CIGARETTE SLITTER Inhaled Oxygen Concentration - - Weight 105.2 kg (232 lb) 09/15/2023 11:07 AM DEFECTIVE CIGARETTE SLITTER Height 165.1 cm (5' 5) 09/15/2023 11:07 AM DEFECTIVE CIGARETTE SLITTER Body Mass Index 38.61 09/15/2023 11:07 AM DEFECTIVE CIGARETTE SLITTER Plan of Treatment Health Maintenance Due Date [...] CREATININE 02/23/20242022, 02/22/2023, 02/21/2023, Additional history exists DEPRESSION SCREENING 07/20/2024 06/09/2023 DIABETES - URINE PROTEIN SCREENING 07/20/2024 01/28/2022 COVID-19 VACCINE ( season) 2025 INFLUENZA VACCINE (#1) 2025 08/16/2023, 2020 HIB [...] CARE (AMB) [facility] Routine 06/09/2023 11:02 AM DEFECTIVE CIGARETTE SLITTER Diabetes mellitus type 2, insulin dependent MICROALB/CREAT RATIO URINE RANDOM PANEL Routine 01/28/2022 1:09 PM CDT Diabetes mellitus type 2, insulin dependent COMPREHENSIVE METABOLIC PANEL Routine 01/28/2022 1:09 PM CDT Diabetes mellitus type 2, insulin dependent from Last 3 Months or Most Recently Relevant to Health Maintenance Results * HEMOGLOBIN A1C - POINT OF CARE (AMB) [facility] (06/09/2023 11:02 AM DEFECTIVE CIGARETTE SLITTER) Hemoglobin A1c POCT 11.9 % [address] BLOOD SPECIMEN / Unknown 06/09/2023 11:02 AM DEFECTIVE CIGARETTE SLITTER us Arelis Argueta MD LAB - POINT OF CARE ORDERABLES Final Result [address], [place] [address], [facility] [phone] * MICROALB/CREAT RATIO URINE RANDOM PANEL (01/28/2022 1:09 PM CDT) Albumin Random Urine 6.3 Not Established ug/mL 01/28/2022 1:54 PM CDT [facility] Creatinine Urine 54 Not Established mg/dL 01/28/2022 1:54 PM CDT [facility] Urine Albumin/Creati nine Ratio 12 <30 mg/g 01/28/2022 1:54 PM CDT [facility] Urine URINE SPECIMEN OBTAINED BY CLEAN CATCH PROCEDURE / Unknown Collection / Unknown 01/28/2022 1:09 PM CDT 01/28/2022 1:29 PM CDT us Emma Vieira MD LAB - URINE CHEMISTRY ORDERABLES Final Result [facility] [address] [place] [address], [facility] [phone] * (ABNORMAL) COMPREHENSIVE METABOLIC PANEL (01/28/2022 1:09 PM [facility]) BUN 9 7 - 26 mg/dL 01/28/2022 2:02 PM [facility] Creatinine 0.50(L) 0.56 - 0.96 mg/dL 01/28/2022 2:02 PM [facility] Sodium 142 136 - 145 mmol/L 01/28/2022 2:02 PM [facility] Potassium 3.7 3.5 - 4.5 mmol/L 01/28/2022 2:02 PM [facility] Chloride 102 98 - 107 mmol/L 01/28/2022 2:02 PM [facility] CO2 27 22 - 29 mmol/L 01/28/2022 2:02 PM [facility] Glucose 97 70 - 115 mg/dL 01/28/2022 2:02 PM [facility] Calcium 9.6 8.4 - 10.2 mg/dL 01/28/2022 2:02 PM [facility] Protein Total 7.5 6.0 - 8.3 g/dL 01/28/2022 2:02 PM [facility] Albumin 4.1 3.4 - 5.0 g/dL 01/28/2022 2:02 PM [facility] Bilirubin Total 0.6 0.2 - 1.2 mg/dL 01/28/2022 2:02 PM [facility] Alkaline Phosphatase 65 40 - 150 U/L 01/28/2022 2:02 PM [facility] ALT 17 5 - 55 U/L 01/28/2022 2:02 PM [facility] AST 16 5 - 34 U/L 01/28/2022 2:02 PM [facility] Anion Gap 17 8 - 18 01/28/2022 2:02 PM [facility] BUN/Creatinine Ratio 18 7 - 23 01/28/2022 2:02 PM [facility] Osmolality Calculated 293 270 - 300 mOsm/kg 01/28/2022 2:02 PM [facility] Albumin/Globulin Ratio 1.2 1.1 - 2.3 01/28/2022 2:02 PM [facility] eGFR by CKD-EPI >90 >=90 mL/min/1.7 3 m2 01/28/2022 2:02 PM [facility] Blood BLOOD SPECIMEN / Unknown Lab Venipuncture / Unknown 01/28/2022 1:09 PM CDT 01/28/2022 1:33 PM CDT Emma Vieira MD LAB - CHEMISTRY ORDERABLES Final Result [facility] [address] [place] [address], [facility] [phone] from Last 3 Months or Most Recently Relevant to Health Maintenance Insurance [facility] [employer] NO INSURANCE Member Subscriber Plan / Payer (Ef fective for All Dates) Name:Whit Segovia Member ID:Not on file Relation to Subscriber:Not on file Name:WHIT SEGOVIA Subscriber ID:Not on file (Home) Address: [address] [place] [address] Payer ID:Not on file Group ID:Not on file Type:Self Pay Address: [place], [place] [facility] Care Teams Board Runner Relationship Specialty Start Date End Date Luis M Kirkpatrick MD [address] [address] PCP - General 11/26/21 Luis M Kirkpatrick MD [address] [address] 04/16/21 Lucho Caass MD [address] [place] [address] 10/07/18
--- OUTSIDE RECORDS SUMMARY | 2025-04-06 15:02 | XMS_ITS | Clinical Summary ---
Author Organization [facility] Address [address] [place] [address] Care Team Providers Care Supervisor Photoengraving Name Role Phone Unavailable Primary Care Provider Unavailabl e Social History Tobacco Use Types Packs/Day Years Used Date Smoking Tobacco: Never Assessed Comments Unknown Sex and Gender Information Value Date Recorded Sex Assigned at Not on file Legal Sex Female 9:24 AM FIELD REPRESENTATIVE Gender Identity Not on file Sexual [...]
--- OUTSIDE RECORDS SUMMARY | 2025-04-06 15:02 | XMS_ITS | Encounter Summary ---
Author Organization [facility] Address [address] [facility] [place] [address] Care Team Providers Care Tray Packer Name Role Phone Luis M Kirkpatrick MD Unavailable [phone] Lucho Casas MD Unavailable [phone] Luis M Kirkpatrick MD Primary Care Provider [phone] Reason for Visit * Reason Onset Date Comments MEDICATION REFILL 08/04/2022 Encounter Details Date Type Department Care Team (Late st Contact Info) Description 08/04/2022 Refill [facility] [address] [place] [id number] Db Sue MD [address] [place] [address] MEDICATION REFILL Social History Tobacco Use Types Packs/Day Years Used Date Smoking Tobacco: Some Days Cigarettes 0.5 30 Smokeless Tobacco: Former Alcohol Use Standard Drinks/Week Comments Yes 0 (1 standard drink = 0.6 oz pur e alcohol) socially Comments No Sex and Gender Information Value Date Recorded Sex Assigned at Not on file Legal Sex Female 1:22 PM MARKER DELIVERY Gender Identity Not on file Sexual Orientation Not on file documented as of this encounter Miscellaneous Notes * Telephone Encounter - Silva Belle LPN - 08/04/2022 9:59 AM CST ERROR ER DELIVERY documented in this encounter Plan of Treatment Not on file documented as of this encounter Visit Diagnoses Diagnosis Diabetes mellitus type 2, insulin dependent (HCC)- Primary Type II or unspecified type diabetes mellitus without mention of complication, not stated as uncontrolled documented in this encounter Care Teams Tray Packer Relationship Specialty Start Date End Date Luis M Kirkpatrick MD [address] [place] [address] PCP - General 11/26/21 Luis M Kirkpatrick MD [address] [place] [address] 04/16/21 Lucho Casas MD [address] [place] [address] 10/07/18 documented as of this encounter
--- NOTE | 2025-04-06 15:13 | PM.IMHP ---
H&P: HPI History of Present Illness Date/Time: 04/06/25 15:13 Chief Complaint: Groin abscess Narrative: This is a 55-year-old woman with a history of insulin-dependent diabetes mellitus, tobacco abuse, fibrillation on Xarelto, and history of hiddradenitis suppurative with multiple abscesses and infections in the past. She was seen in the office today by Dr. Mac for a right groin abscess. She most recently was admitted in January and underwent incision and drainage of complex left groin abscess and incision and drainage of left axillary abscess. She now complains of increased redness, swelling, and pain to her right groin and upper medial thigh x 1 week. She called our office yesterday and was started on Levaquin with the appointment scheduled for today. She states her infections are flared up by stress and feels she has been under lot of stress lately. She also reports her last hemoglobin A1c was around 9.0 and in review of the chart, she was 8.2 in January and 11.2 earlier in the year. She was directly admitted from our office for IV antibiotics and surgical management. Review of Systems Review of Systems: All systems reviewed & are unremarkable except as noted in HPI and below PMFSH Past Medical History Medical History Hidradenitis suppurativa Chronic anticoagulation Paroxysmal atrial fibrillation Insulin dependent diabetes mellitus (2006) Pulmonary embolism Deep venous thrombosis Depression with anxiety Hyperlipidemia Hypertension Surgical History Surgical History Status post open reduction with internal fixation of fracture Right pinky fracture Hx of removal of cyst 01/06/25 Excision of left lower quadrant abdominal wall cyst with sinus tract and 12cm intermediate layered wound closure Dr. Mac History of dilation and curettage History of cholecystectomy History of tonsillectomy History of bilateral knee replacement 2004 Family History Family History Unknown Adopted Social History Social History Social History: The patient lives with her they have been together since 2009 in a been since 2014. She has a 30-year-old daughter.. 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 She has smoked 3-4 cigarettes a day since she was a teenager. She she drinks 1 alcoholic beverage a week. She uses medical marijuana gummies frequently. She denies any illicit substance use. Surrogate medical decision maker: Han Segovia, spouse. Code status: Full code. Smoking packs per day: 0.25 Smoking cigarettes per day: 5.0 Years smoked: 30 Smoking pack-years: 7.50 Smoking status: Current every day smoker Second hand tobacco smoke exposure: No Alcohol intake: current Drinks per week: 5 Substance use: current Substance use type: marijuana Other substance usage details: Gummies every once in awhile. Do You Feel Safe in your Home?: Yes Lack of Transportation: No Lack of Food: Never True Current Housing: I Have Housing Concerned About Future Housing: No Difficulty Paying Gas/Electric Bills: No Difficulty Paying for Meds: No Currently Unemployed: No Education: Bachelor's Degree Difficulty w/ Childcare or Family Care: No Living arrangements: with family Spiritual care concerns: No Meds Home Medications and Allergies Home Medications ?Medication ?Instructions ?Recorded ?Confirmed ?Type insulin lispro 100 unit/mL See Rx Instructions .Route 10/19/24 02/07/25 Rx subcutaneous pen .COMPLEX #15 mL fluoxetine 20 mg capsule 20 mg PO DAILY #90 caps 11/17/24 02/07/25 Rx gabapentin 300 mg capsule 300 mg PO Q12H #180 caps 11/17/24 02/07/25 Rx insulin glargine 100 unit/mL (3 25 unit (0.25 mL) subcut QPM #15 mL 11/17/24 02/07/25 Rx mL) subcutaneous pen (Lantus Solostar U-100 Insulin) lisinopril 10 mg tablet 10 mg PO DAILY #90 tabs 11/17/24 02/07/25 Rx simvastatin 20 mg tablet 20 mg PO HS #90 tabs 11/17/24 02/07/25 Rx sotalol 80 mg tablet See Rx Instructions .Route 11/17/24 02/07/25 Rx .COMPLEX #180 tabs metformin 1,000 mg tablet 1,000 mg PO BID #180 tabs 12/13/24 02/07/25 Rx pen needle, diabetic 31 gauge x See Rx Instructions miscellaneous 12/13/24 02/07/25 Rx 5/16 (TRUEplus Pen Needle) .COMPLEX #100 ea blood-glucose,director summer sessions,cont #1 ea 01/11/25 02/07/25 Rx (Dexcom G7 Program Engagement Director) blood sugar diagnostic (Contour #50 ea 02/24/25 Rx Plus Test Strip) blood-glucose meter (Contour Plus #1 ea 02/24/25 Rx Blue Meter) lancets 28 gauge (Comfort EZ #100 ea 02/24/25 Rx Lancets) blood-glucose sensor (Dexcom G7 #9 ea 03/15/25 03/15/25 Rx Sensor device) rivaroxaban 20 mg tablet (Xarelto) 20 mg PO QPM #30 tabs 03/30/25 Rx levofloxacin 750 mg tablet 750 mg PO DAILY 14 days #14 tabs 04/05/25 Rx Allergies Allergy/AdvReac Type Severity Reaction Status Date / Time clindamycin Allergy Unknown Hives / Verified 04/06/25 13:38 Red Face celecoxib AdvReac Mild Unknown Verified 04/06/25 13:38 propoxyphene AdvReac Unknown Nausea and Verified 04/06/25 13:38 Vomiting sulfamethoxazole AdvReac Unknown Vomiting Verified 04/06/25 13:38 trimethoprim AdvReac Unknown Vomiting Verified 04/06/25 13:38 hydrocodone (From Lortab) AdvReac Nausea and Verified 04/06/25 13:38 Vomiting Exam Const: General: comfortable and no acute distress Nutritional Appearance: overweight Orientation/consciousness: patient oriented x3 HENMT: Head: normocephalic and atraumatic Ears: hearing grossly normal bilaterally Mouth: Yes moist mucous membranes Eyes: General: appearance normal, both eyes and all related structures Pupils: Equal, round and reactive pupils present Neck: Neck: normal visual inspection and full ROM Resp: Effort & Inspection: no respiratory distress Auscultation: clear to auscultation bilaterally Cardio: Rate: regular rate Rhythm: regular rhythm Peripheral pulses: Peripheral pulses 2+ throughout GI: Inspection: non-distended GI Palp: Yes Soft to palpation, No Tenderness to palpation present (GI), No Guarding due to palpation present (GI) and No Rebound tenderness present Percussion: Yes normal to percussion Auscultation: normal bowel sounds Skin: General skin exam: normal color Other: Right groin erythema extending to the inner proximal thigh. There is an indurated area on the upper thigh near the groin fold that has fluctuance and appears to be an abscess. There is another area with a 3x2 cm open wound with trammell/penaloza necrotic tissue within the entire base, and a foul smell and purulent drainage. There is another separate open wound medial to the larger one that is about 1-2 cm with yellow slough. Neuro: General: moves all extremities and no focal motor deficits Speech: normal speech Motor exam (neuro): 5/5 motor strength present throughout Extrem: General: normal to inspection and no edema Psych: Mental Status: mental status grossly normal Attitude: cooperative Insight: Good insight present (Psych) Judgement: Good judgement present (Psych) Assessment and Plan Assessment and plan (1) Abscess of right groin: Code(s): L02.214 - Cutaneous abscess of groin Status: Acute Assessment and Plan: The patient has a history of multiple abscesses, most recently she dealt with a left groin and axillary abscess in January. These were drained and have healed, and she now presents back with multiple right groin abscesses. We will start broad-spectrum IV antibiotics. Her previous cultures from the left groin abscess grew Prevotella and staphylococcus lugdunesis with no resistance on sensitivities. We will order labs and allow her to have a diabetic diet today, but make her NPO after midnight to plan for incision and drainage of right groin abscesses tomorrow in the OR. (2) Paroxysmal atrial fibrillation: Code(s): I48.0 - Paroxysmal atrial fibrillation Status: Acute (3) Chronic anticoagulation: Code(s): Z79.01 - shelter (current) use of anticoagulants Status: Acute Assessment and Plan: Patient is taking Xarelto for afib, which will be held for surgery tomorrow. (4) Insulin dependent diabetes mellitus: Onset Date: 2006 Status: Acute Assessment and Plan: Consult Hospitalist for medical management. Appreciate their help. (5) Hypertension: Code(s): I10 - Essential (primary) hypertension Status: Acute Plan I have discussed the patient's case and plan of care with Dr. Mac.
--- NOTE | 2025-04-06 15:19 | ADMGEN ---
This patient, Whit Segovia, was admitted to [facility] Surg Room 324-01. Patient/family oriented to hospital policies and general routines including ID bracelet, bed and alarms, visiting hours, pain management, procedures, bathroom and other care routines, personal items, smoking policy, room service/diet, and visiting hours. Information on how to activate the Rapid Response Team has been discussed. Patient/Family are encouraged to report perceived risks to care and to ask questions if they do not understand what they are told or what they should do.
--- OUTSIDE RECORDS SUMMARY | 2025-04-06 16:02 | XMS_ITS | Encounter Summary ---
Author Organization [facility] Health Address [address] [place] [address] Care Team Providers Care Vacuum Drum Drier Operator Name Role Phone Luis M Kirkpatrick MD Unavailable [phone] Lucho Casas MD Unavailable [phone] Luis M Kirkpatrick MD Primary Care Provider [phone] Encounter Details Date Type Department Care Team (Late st Contact Info) Description 05/29/2023 Telephone [facility] - Endocrinology [address] [place] [address], [place] [address] Sobia Meza MD [address] [place] [phone] Social History Tobacco Use Types Packs/Day Years Used Date Smoking Tobacco: Some Days Cigarettes 0.5 30 Smokeless Tobacco: Former Alcohol Use Standard Drinks/Week Comments Yes 0 (1 standard drink = 0.6 oz pur e alcohol) socially Comments No Sex and Gender Information Value Date Recorded Sex Assigned at Not on file Legal Sex Female 1:22 PM BEHAVIOR THERAPIST Gender Identity Not on file Sexual Orientation Not on file documented as of this encounter Miscellaneous Notes * Telephone Encounter - Riggs Elana - 05/29/2023 8:32 AM CST Patient called in requesting a Med refill. Drug type:LANTUS PEN, ONE TOUCH ULTRA STRIPS, AND PEN NEEDLES BUT MAY NEED A SUBSTITUTE BRAND OF PEN NEEDLES DUE TO INSURANCE NOT COVERING. Pharmacy:[id number] - [address] [facility] [place] [address] [facility] [place] [address] Patient call back number: [phone] . PATIENT ALSO STATES HER BLOOD SUGAR IS STILL IN THE 300'S AND WOULD LIKE A CALL FROM THE OFFICE. VIOR THERAPIST documented in this encounter Plan of Treatment Not on file documented as of this encounter Visit Diagnoses Not on filedocumented in this encounter Care Teams Vacuum Drum Drier Operator Relationship Specialty Start Date End Date Luis M Kirkpatrick MD [address] [place] [address] PCP - General 11/26/21 Luis M Kirkpatrick MD [address] [place] [address] 04/16/21 Lucho Casas MD [address] [place] [address] 10/07/18 documented as of this encounter
--- OUTSIDE RECORDS SUMMARY | 2025-04-06 16:03 | XMS_ITS | Clinical Summary ---
Author Organization [facility] Address [address] [place] [address] Care Team Providers Care Medical Office Specialist Name Role Phone Unavailable Primary Care Provider Unavailabl e Social History Tobacco Use Types Packs/Day Years Used Date Smoking Tobacco: Never Assessed Comments Unknown Sex and Gender Information Value Date Recorded Sex Assigned at Not on file Legal Sex Female 9:24 AM PRODUCT DEVELOPMENT ECOLOGIST Gender Identity Not on file Sexual Orientation [...]
--- OUTSIDE RECORDS SUMMARY | 2025-04-06 16:03 | XMS_ITS | Encounter Summary ---
Author Organization [facility] Health Address [address] [facility] [place] [address] Care Team Providers Care Parachute Crown Sewer Name Role Phone Luis M Kirkpatrick MD Primary Care Provider [phone] Lucho Casas MD Primary Care Provider [phone] Luis M Kirkpatrick MD Unavailable [phone] Lucho Casas MD Unavailable [phone] Luis M Kirkpatrick MD Primary Care Provider [phone] Reason for Visit * Reason Onset Date Comments Medication Prior Auth Request 01/24/2019 Encounter Details Date Type Department Care Team (Late st Contact Info) Description 01/24/2019 Telephone [facility]inology, Diabetes and Metabolism [address] [place] [address] Timo Us MD [address] [place] [address] Medication Prior Auth Request Social History Tobacco Use Types Packs/Day Years Used Date Smoking Tobacco: Never Smokeless Tobacco: Never Alcohol Use Standard Drinks/Week Comments Yes 0 (1 standard drink = 0.6 oz pur e alcohol) Comments Unknown Sex and Gender Information Value Date Recorded Sex Assigned at Not on file Legal Sex Female 1:22 PM WHIPPER BEATER Gender Identity Not on file Sexual Orientation [...] a PA for this Rx as well. [facility] documented in this encounter Plan of Treatment Not on file documented as of this encounter Visit Diagnoses Not on filedocumented in this encounter Care Teams Parachute Crown Sewer Relationship Specialty Start Date End Date Luis M Kirkpatrick MD [address] [place] [address] PCP - General 10/07/18 04/15/21 Lucho Casas MD [address] [place] [address] PCP - General 04/16/21 11/25/21 Luis M Kirkpatrick MD [address] [place] [address] PCP - General 11/26/21 Luis M Kirkpatrick MD [address] [place] [address] 04/16/21 Lucho Casas MD [address] [place] [address] 10/07/18 documented as of this encounter
--- OUTSIDE RECORDS SUMMARY | 2025-04-06 16:03 | XMS_ITS | Clinical Summary ---
Author Organization [facility] Address [address] [place] [address] Care Team Providers Care Property Damage Claims Adjustor Name Role Phone SharifamattyJuan Pablo baker Javi DO Primary Care Provider [phone] Allergies Active Allergy Reactions Criticality Noted Date [...] patient's age to complete this topic Insurance [employer] Care Teams Property Damage Claims Adjustor Relationship Specialty Start Date End Date Juan Pablo Forbes DO [address] [place] [address] PCP - General INTERNAL MEDICINE 12/02/17
--- OUTSIDE RECORDS SUMMARY | 2025-04-06 16:03 | XMS_ITS | Encounter Summary ---
Author Organization [facility] Address [address] [facility] [place] [address] Care Team Providers Care Applique Cutter Name Role Phone Luis M Kirkpatrick MD Unavailable [phone] Lucho Casas MD Unavailable [phone] Luis M Kirkpatrick MD Primary Care Provider [phone] Encounter Details Date Type Department Care Team (Late st Contact Info) Description 05/27/2023 Telephone [facility] - Centralized Scheduling [address] [place] [phone] Arelis Argueta MD [facility] [place] [address] Social History Tobacco Use Types Packs/Day Years Used Date Smoking Tobacco: Some Days Cigarettes 0.5 30 Smokeless Tobacco: Former Alcohol Use Standard Drinks/Week Comments Yes 0 (1 standard drink = 0.6 oz pur e alcohol) socially Comments No Sex and Gender Information Value Date Recorded Sex Assigned at Not on file Legal Sex Female 1:22 PM THERMAL SURFACING MACHINE OPERATOR Gender Identity Not on file Sexual Orientation Not on file documented as of this encounter Miscellaneous Notes * Telephone Encounter - Romain Ridley MA - 05/27/2023 11:44 AM CST Called patient. To let her know that Dr. Berry sent her prescriptions into the pharmacy. Patient did not answer. Left voice mail to call office back. MAL SURFACING MACHINE OPERATOR * Telephone Encounter - Oscar Sainilucía - 05/27/2023 9:15 AM CST Patient called in requesting a Med refill. Drug type: dulaglutide (Trulicity) 1.5 MG/0.5ML injection, insulin pen needle (B-D UF III MINI PEN NEEDLES) 31G X 5 MM needle and one touch ultra test strips. Pharmacy:[facility] [address] [place] [address] Patient call back number: [phone]. States thatshe is running out of medication. Is frustrated because she was told that Dr. Meza would be fillingher meds because Dr. Quintana is certified through [place]. Reached out to SCOTT Hoyos regarding this concern and was advised that Dr. Meza isn't here today. Ms. Segovia would like a call back to discuss further steps. Callback number listed above. . MAL SURFACING MACHINE OPERATOR documented in this encounter Plan of Treatment Not on file documented as of this encounter Visit Diagnoses Not on filedocumented in this encounter Care Teams Applique Cutter Relationship Specialty Start Date End Date Luis M Kirkpatrick MD [address] [place] [address] PCP - General 11/26/21 Luis M Kirkpatrick MD [address] [place] [address] 04/16/21 Lucho Casas MD [address] [place] [address] 10/07/18 documented as of this encounter
--- OUTSIDE RECORDS SUMMARY | 2025-04-06 16:03 | XMS_ITS | Encounter Summary ---
Author Organization [facility] Health Address [address] [facility] [place] [address] Care Team Providers Care Car Supplier Name Role Phone Luis M Kirkpatrick MD Unavailable [phone] Lucho Casas MD Unavailable [phone] Luis M Kirkpatrick MD Primary Care Provider [phone] Encounter Details Date Type Department Care Team (Late st Contact Info) Description 05/13/2023 Telephone [facility] - Endocrinology [address] [place] [address], [facility] [place] [address] Arelis Argueta MD [address] [place] [address] [place] [phone] Social History Tobacco Use Types Packs/Day Years Used Date Smoking Tobacco: Some Days Cigarettes 0.5 30 Smokeless Tobacco: Former Alcohol Use Standard Drinks/Week Comments Yes 0 (1 standard drink = 0.6 oz pur e alcohol) socially Comments No Sex and Gender Information Value Date Recorded Sex Assigned at Not on file Legal Sex Female 1:22 PM ENDOCRINOLOGY SPECIALIST Gender Identity Not on file Sexual [...] I tried calling her but she didn't picker. Can you please let her know. [...] Thanks so much. Patient Call Back number: [phone] documented in this encounter Plan of Treatment Not on file documented as of this encounter Visit Diagnoses Not on filedocumented in this encounter Care Teams Car Supplier Relationship Specialty Start Date End Date Lius M Kirkpatrick MD [address] [place] [address] PCP - General 11/26/21 Luis M Kirkpatrick MD [address] [place] [address] 04/16/21 Lucho Casas MD [address] [place] [address] 10/07/18 documented as of this encounter
--- OUTSIDE RECORDS SUMMARY | 2025-04-06 16:03 | XMS_ITS | Encounter Summary ---
Author Organization [facility] Health Address [address] [facility] [place] [address] Care Team Providers Care Digital Experience Manager Name Role Phone Luis M Kirkpatrick MD Unavailable [phone] Lucho Casas MD Unavailable [phone] Luis M Kirkpatrick MD Primary Care Provider [phone] Encounter Details Date Type Department Care Team (Late st Contact Info) Description 04/23/2023 Telephone [facility] - Centralized Scheduling [address] [place] [phone] Arelis Argueta MD [address] [address] Social History Tobacco Use Types Packs/Day Years Used Date Smoking Tobacco: Some Days Cigarettes 0.5 30 Smokeless Tobacco: Former Alcohol Use Standard Drinks/Week Comments Yes 0 (1 standard drink = 0.6 oz pur e alcohol) socially Comments No Sex and Gender Information Value Date Recorded Sex Assigned at Not on file Legal Sex Female 1:22 PM TIRE CARE MANAGER Gender Identity Not on file Sexual Orientation Not on file documented as of this encounter Plan of Treatment Not on file documented as of this encounter Visit Diagnoses Not on filedocumented in this encounter Care Teams Digital Experience Manager Relationship Specialty Start Date End Date Luis M Kirkpatrick MD [address] [place], [place] [phone] PCP - General 11/26/21 Luis M Kirkpatrick MD [address] [place], [place] [address] 04/16/21 Lucho Casas MD [address] [place] [address] 10/07/18 documented as of this encounter
--- OUTSIDE RECORDS SUMMARY | 2025-04-06 16:03 | XMS_ITS | Encounter Summary ---
Author Organization [facility] Address [address] [facility] [place] [address] Care Team Providers Care Engine Lathe Operator Name Role Phone Luis M Kirkpatrick MD Unavailable [phone] Lucho Casas MD Unavailable [phone] Luis M Kirkpatrick MD Primary Care Provider [phone] Reason for Visit * Reason Onset Date Comments MEDICATION REFILL 08/04/2022 Encounter Details Date Type Department Care Team (Late st Contact Info) Description 08/04/2022 Refill [facility] Diabetes and Met[facility] [address] [place] [phone] Db Sue MD [address] [place] [address] MEDICATION REFILL Social History Tobacco Use Types Packs/Day Years Used Date Smoking Tobacco: Some Days Cigarettes 0.5 30 Smokeless Tobacco: Former Alcohol Use Standard Drinks/Week Comments Yes 0 (1 standard drink = 0.6 oz pur e alcohol) socially Comments No Sex and Gender Information Value Date Recorded Sex Assigned at Not on file Legal Sex Female 1:22 PM ASSEMBLING MACHINE OPERATOR Gender Identity Not on file Sexual Orientation Not on file documented as of this encounter Miscellaneous Notes * Telephone Encounter - Silva Belle LPN - 08/04/2022 9:59 AM CST ERROR MBLING MACHINE OPERATOR documented in this encounter Plan of Treatment Not on file documented as of this encounter Visit Diagnoses Diagnosis Diabetes mellitus type 2, insulin dependent (HCC)- Primary Type II or unspecified type diabetes mellitus without mention of complication, not stated as uncontrolled documented in this encounter Care Teams Engine Lathe Operator Relationship Specialty Start Date End Date Luis M Kirkpatrick MD [address] [place] [address] PCP - General 11/26/21 Luis M Kirkpatrick MD [address] [place] [address] 04/16/21 Lucho Casas MD [address] [place] [address] 10/07/18 documented as of this encounter
--- OUTSIDE RECORDS SUMMARY | 2025-04-06 16:03 | XMS_ITS | Clinical Summary ---
Author Organization [facility] Address [address] [facility] [place] [address] Care Team Providers Care Garage Door Service Technician Name Role Phone Luis M Kirkpatrick MD Unavailable [phone] Lucho Casas MD Unavailable [phone] Luis M Kirkpatrick MD Primary Care Provider [phone] Source Comments [facility],non-owned Affiliates and Associated Physician Practices is amultiple site organization consisting of ambulatory clinics and hospital sitesin [place], [place] and [place]. This disclosure is being madepursuant to the Care Everywhere program and may not contain all information available regarding this patient. Last updated 18.[facility] Allergies Active Allergy Reactions Criticality Noted Date [...] on file Legal Sex Female 1:22 PM SCARFER OPERATOR Gender Identity Not on file Sexual Orientation Not on file Last Filed Vital Signs Vital Sign Reading Time Taken Comments Blood Pressure 146/85 09/15/2023 11:07 AM SCARFER OPERATOR Pulse 93 09/15/2023 11:07 AM SCARFER OPERATOR Temperature 36.5 C (97.7 F) 06/09/2023 10:42 AM SCARFER OPERATOR Respiratory Rate 18 06/09/2023 10:42 AM SCARFER OPERATOR Oxygen Saturation 96% 09/15/2023 11:07 AM SCARFER OPERATOR Inhaled Oxygen Concentration - - Weight 105.2 kg (232 lb) 09/15/2023 11:07 AM SCARFER OPERATOR Height 165.1 cm (5' 5) 09/15/2023 11:07 AM SCARFER OPERATOR Body Mass Index 38.61 09/15/2023 11:07 AM SCARFER OPERATOR Plan of Treatment Health Maintenance Due [...] CARE (AMB) [facility] Routine 06/09/2023 11:02 AM SCARFER OPERATOR Diabetes mellitus type 2, insulin dependent MICROALB/CREAT RATIO URINE RANDOM PANEL Routine 01/28/2022 1:09 PM CDT Diabetes mellitus type 2, insulin dependent COMPREHENSIVE METABOLIC PANEL Routine 01/28/2022 1:09 PM CDT Diabetes mellitus type 2, insulin dependent from Last 3 Months or Most Recently Relevant to Health Maintenance Results * HEMOGLOBIN A1C - POINT OF CARE (AMB) [facility] (06/09/2023 11:02 AM SCARFER OPERATOR) Hemoglobin A1c POCT 11.9 % [address] BLOOD SPECIMEN / Unknown 06/09/2023 11:02 AM SCARFER OPERATOR us Arelis Argueta MD LAB - POINT OF CARE ORDERABLES Final Result [address], [place] [address], [facility] [phone] * MICROALB/CREAT RATIO URINE RANDOM PANEL (01/28/2022 1:09 PM CDT) Albumin Random Urine 6.3 Not Established ug/mL 01/28/2022 1:54 PM CDT [facility] Creatinine Urine 54 Not Established mg/dL 01/28/2022 1:54 PM CDT [facility] Urine Albumin/Creati nine Ratio 12 <30 mg/g 01/28/2022 1:54 PM CDT [facility] Urine URINE SPECIMEN OBTAINED BY CLEAN CATCH PROCEDURE / Unknown Collection / Unknown 01/28/2022 1:09 PM CDT 01/28/2022 1:29 PM CDT us Emma Vieira MD LAB - URINE CHEMISTRY ORDERABLES Final Result [facility] [address] [place] [address], [facility] [place] [phone] * (ABNORMAL) COMPREHENSIVE METABOLIC PANEL (01/28/2022 1:09 [...] 18 7 - 23 01/28/2022 2:02 PM [facility] Osmolality Calculated 293 270 - 300 mOsm/kg 01/28/2022 2:02 PM [facility] Albumin/Globulin Ratio 1.2 1.1 - 2.3 01/28/2022 2:02 PM T [facility] eGFR by CKD-EPI >90 >=90 mL/min/1.7 3 m2 01/28/2022 2:02 PM T [facility] Blood BLOOD SPECIMEN / Unknown Lab Venipuncture / Unknown 01/28/2022 1:09 PM CDT 01/28/2022 1:33 PM CDT Emma Vieira MD LAB - CHEMISTRY ORDERABLES Final Result [facility] [address] [place] [address], [facility] [place] [phone] from Last 3 Months or Most Recently Relevant to Health Maintenance Insurance [facility] SELF PAY NO INSURANCE Member Subscriber Plan / Payer (Ef fective for All Dates) Name:Whit Segovia Member ID:Not on file Relation to Subscriber:Not on file Name:WHIT SEGOVIA Subscriber ID:Not on file (Home) Address: [address] [place] [id number] Payer ID:Not on file Group ID:Not on file Type:Self Pay Address: [place], [place] [facility] Care Teams Garage Door Service Technician Relationship Specialty Start Date End Date Luis M Kirkpatrick MD [address] [address] PCP - General 11/26/21 Luis M Kirkpatrick MD [address] [address] 04/16/21 Lucho Casas MD [address] [place] [address] 10/07/18
--- OUTSIDE RECORDS SUMMARY | 2025-04-06 16:03 | XMS_ITS | Encounter Summary ---
Author Organization [facility] Health Address [address] [place] [address] Care Team Providers Care Relay Checker Name Role Phone Luis M Kirkpatrick MD Unavailable [phone] Lucho Casas MD Unavailable [phone] Luis M Kirkpatrick MD Primary Care Provider [phone] Encounter Details Date Type Department Care Team (Late st Contact Info) Description 05/27/2023 Telephone [facility] - Endocrinology [address] [place] [address], 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 Gender Identity Not on file Sexual Orientation Not on file documented as of this encounter Miscellaneous Notes * Telephone Encounter - Arelis Argueta MD - 05/29/2023 12:08 PM CST Done FOOD FRY COOK * Telephone Encounter - Lia Grier LPN [...] doesn't want to go to the ER FOOD FRY COOK * Telephone Encounter - Tarsha Cedillo - [...] two doses remaining Patient Call Back number: [phone] FOOD FRY COOK documented in this encounter Plan of Treatment Not on file documented as of this encounter Visit Diagnoses Not on filedocumented in this encounter Care Teams Relay Checker Relationship Specialty Start Date End Date Luis M Kirkpatrick MD [address] [place] [address] PCP - General 11/26/21 Luis M Kirkpatrick MD [address] [place] [address] 04/16/21 Lucho Casas MD [address] [place] [address] 10/07/18 documented as of this encounter
--- OUTSIDE RECORDS SUMMARY | 2025-04-06 16:03 | XMS_ITS | Clinical Summary ---
Author Organization [facility] Physician Office Building [address] [place] [address] Care Team Providers Care Media Relations Specialist Name Role Phone Juan Pablo Forbes DO Unavailable [phone] Connor Barton MD Unavailable [phone] No, Physician Primary Care Provider [phone] Allergies Active Allergy Reactions Criticality Noted Date [...] 03/17/2018 Assessment & Plan (08/20/2018 4:20 PM LEATHER CASE FINISHER): Diabetes is improving with treatment. Reviewed insulin [...] . Assessment & Plan (06/21/2018 7:03 AM LEATHER CASE FINISHER): Diabetes is improving with treatment. Reviewed insulin [...] . Assessment & Plan (05/23/2018 8:52 PM LEATHER CASE FINISHER): Diabetes is improving with treatment. A1c - [...] type 2, - patho physiology, short and exterminator helper termite complications of uncontrolled DM, diet and exercise [...] 03/17/2018 Assessment & Plan (08/20/2018 4:21 PM LEATHER CASE FINISHER): Hypertension is chronic, well controlled Continue current treatment regimen. Dietary sodium restriction. Weight loss. Regular aerobic exercise. Continue current medications. Blood pressure will be reassessed at the next regular appointment. Assessment & Plan (06/21/2018 7:04 AM LEATHER CASE FINISHER): Hypertension is chronic, well controlled Continue current [...] 03/17/2018 Assessment & Plan (08/20/2018 4:21 PM LEATHER CASE FINISHER): Pt. On statin therapy Nutrition counseling provided Advised to increase aerobic exercise Assessment & Plan (06/21/2018 7:04 AM LEATHER CASE FINISHER): Pt. On statin therapy Nutrition counseling provided Advised to increase aerobic exercise Assessment & Plan (03/17/2018 7:44 AM CDT): Pt. On statin therapy Nutrition counseling provided Advised to increase aerobic exercise Insulin pump status 03/17/2018 Assessment & Plan (08/20/2018 4:21 PM LEATHER CASE FINISHER): Have long acting , basal insulin ( [...] 02/18 Assessment & Plan (08/20/2018 4:21 PM LEATHER CASE FINISHER): Obesity is improving with lifestyle modifications. Discussed [...] discussed. Assessment & Plan (06/21/2018 7:04 AM LEATHER CASE FINISHER): Obesity is improving with lifestyle habits Discussed [...] often do you attend chur ch or confucianism services? 1 to 4 times per year 02/17/2023 Do you belong to any clubs o r organizations such as rastafarian groups, unions, fraternal or athletic groups, or [...] on file Legal Sex Female 6:30 AM LEATHER CASE FINISHER Gender Identity Not on file Sexual Orientation Not on file Obstetrics History Last Filed Vital Signs Vital Sign Reading Time Taken Comments Blood Pressure 153/90 08/16/2023 7:30 AM LEATHER CASE FINISHER Pulse 87 08/16/2023 7:30 AM LEATHER CASE FINISHER Temperature 36.8 C (98.2 F) 08/16/2023 7:30 AM LEATHER CASE FINISHER Respiratory Rate 18 08/16/2023 7:30 AM LEATHER CASE FINISHER Oxygen Saturation 99% 08/16/2023 7:30 AM LEATHER CASE FINISHER Inhaled Oxygen Concentration - - Weight 100.7 kg (222 lb 0.1 oz) 024 11:25 PM LEATHER CASE FINISHER Height 165.1 cm (5' 5) 08/14/2023 11:2 5 PM LEATHER CASE FINISHER Body Mass Index 36.94 08/14/2023 11:25 PM LEATHER CASE FINISHER Plan of Treatment Health Maintenance Due Date [...] Diagnosis Comments EGFR Routine 08/15/2023 4:36 AM LEATHER CASE FINISHER HEMOGLOBIN A1C STAT 08/14/2023 6:14 PM LEATHER CASE FINISHER POCT LIPID PANEL Routine 03/16/2018 1:50 PM CDT Type 2 diabetes mellitus with hyperglycemia, with long-term current use of insulin (HCC) from Last 3 Months or Most Recently Relevant to Health Maintenance Results * eGFR (08/15/2023 4:36 AM LEATHER CASE FINISHER) eGFR 118 mL/min/1. 73 m2 JER COYNE [...] last reviewed 2021. Blood 08/15/2023 4:36 AM LEATHER CASE FINISHER 08/15/2023 4:36 AM LEATHER CASE FINISHER Drew Early MD LAB BLOOD ORDERABLES Final R esult Performing Organization Address City/[facility] Co de Phone Number [facility] [address] [facility] [place] [address] * (ABNORMAL) Hemoglobin A1c (08/14/2023 6:14 PM LEATHER CASE FINISHER) Hgb A1C 11.5(H) 4.0 - 5.6 % JER Comment:Testing performed by : [address] [address] Estimated Average Glucose 283 mg/dL JER Comment: The ADA recommends reporting an estimated Average Glucose (eAG) with all Hemoglobin A1c results using the equation derived from a study of 507 normal and diabetic adults. Minority populations were underrepresented and children were not included. (Diabetes Care 31:9860-1971, 2008). The eAG is not equivalent to a fasting glucose. Testing performed by: [facility], [address] [place] [address]., [address] Blood 08/14/2023 6:14 PM LEATHER CASE FINISHER 08/14/2023 6:15 PM LEATHER CASE FINISHER us Luis Fernando Barragan DO LAB BLOOD ORDERABLES Final Result Performing Organization Address [facility] de Phone Number [facility] [address] [facility] [place] [address] * POCT lipid panel (03/16/2018 1:50 PM [...] Advance Directives For more information, please contact: [phone] * Full Code (Latest Code Status on File) Date Activated Date Inactivated Comments 08/14/2023 11:22 PM 08/16/2023 3:36 PM * Full Code Date Activated Date Inactivated Comments 02/16/2023 10:52 PM 02/22/2023 5:12 PM Care Teams Media Relations Specialist Relationship Specialty Start Date End Date No, Physician PCP - General 08/14/23 Juan Pablo Forbes DO Internal Medicine 03/17/18 [place] [address] [facility] [address] [place] [address] Consulting Physician Endocrinology 09/01/18
--- OUTSIDE RECORDS SUMMARY | 2025-04-06 16:03 | XMS_ITS | Encounter Summary ---
Author Organization [facility] Health Address [address] [place] [address] Care Team Providers Care Flatbed Driver Name Role Phone Luis M Kirkpatrick MD Unavailable [phone] Lucho Casas MD Unavailable [phone] Luis M Kirkpatrick MD Primary Care Provider [phone] Encounter Details Date Type Department Care Team (Late st Contact Info) Description 04/14/2023 Telephone [facility] - Centralized Scheduling [address] [place] [phone] Arelis Argueta MD [address] [id number] Social History Tobacco Use Types Packs/Day Years Used Date Smoking Tobacco: Some Days Cigarettes 0.5 30 Smokeless Tobacco: Former Alcohol Use Standard Drinks/Week Comments Yes 0 (1 standard drink = 0.6 oz pur e alcohol) socially Comments No Sex and Gender Information Value Date Recorded Sex Assigned at Not on file Legal Sex Female 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
[2025-04-06 16:32] LABS: Hematocrit 44.7 % (37.0-47.0); Hemoglobin 14.3 g/dL (12.0-15.0); Immature Granulocyte Percent A 0.4 % (0-0.5); Lymphocytes Absolute Auto 2.93 K/mm3 (0.9-3.2); Mean Corpuscular HGB Conc 32.0 g/dl (32-36); Mean Corpuscular Hemoglobin 27.2 pg (26-34); Mean Corpuscular Volume 85.0 fl (80-100); Nucleated Red Blood Cells Absolute Auto 0.000 K/mm3 (0.0-0.012); Nucleated Red Blood Cells Perc 0.0 % (0.0-0.2); Platelet Count Result 257 k/mm3 (150-375); Red Blood Count 5.26 M/mm3 (4.2-5.4); White Blood Count 18.9 K/mm3 (4.5-10.0)
[2025-04-06 16:45] LABS: INR 1.1; Partial Thromboplastin Time 27.8 Seconds (22.3-36.8); Prothrombin Time 14.6 Seconds (11.1-14.7)
[2025-04-06 16:47] LABS: Hemoglobin A1C 8.6 % (<5.7)
[2025-04-06] MEDS: CEFEPIME 2 GM in SODIUM CHLORIDE 0.9% IV 50 ML 100 ML IVPB (17:19)
--- NOTE | 2025-04-06 17:22 | WPDHPUPDATE1 ---
History and Physical Update Update Date/Time: 04/06/25 17:22 History and Physical has been reviewed, including an updated exam of the patient. There are NO changes in the patient's condition. Risks, benefits, and alternatives have been discussed and questions answered. Patient agrees to proceed with procedure.
[2025-04-06 17:32] LABS: Anion Gap 11 mmol/L (4-12); Blood Urea Nitrogen 14 mg/dL (7-17); Calcium 9.1 mg/dL (8.4-10.2); Carbon Dioxide 25 mmol/L (22-30); Chloride 98 mmol/L (98-107); Estimated CRCL calculation 114 ml/min; Estimated Glomerular Filt Rate > 60; Glucose 135 mg/dL (65-110); Potassium 3.8 mmol/L (3.4-5.0); Sodium 134 mmol/L (137-145)
--- NOTE | 2025-04-06 17:39 | WPDANESEPPF ---
Anes - Initial Pre Proc Eval Procedure: Operation Date: 04/06/25 17:15 Proposed Procedures p Irrigation & Drainage Mulitple Right Groin Abcesses(Right) - Jayden Mac MD Date/Time: 04/06/25 17:39 Surgeon: Jayden Mac MD Pre Op Diagnosis: Groin Abscess Patient Data Age: 55 Gender: F Height: 1.65 m Weight: 87.5 kg Last Vital Signs Temp 37.1 C 04/06/25 16:30 Pulse 91 04/06/25 16:30 Resp 20 04/06/25 16:30 BP 123/70 04/06/25 16:30 Pulse Ox 98 04/06/25 16:30 O2 Del Method Room Air 04/06/25 16:30 Allergies Allergy/AdvReac Type Severity Reaction Status Date / Time clindamycin Allergy Unknown Hives / Verified 04/06/25 16:41 Red Face celecoxib AdvReac Mild Unknown Verified 04/06/25 16:41 propoxyphene AdvReac Unknown Nausea and Verified 04/06/25 16:41 Vomiting sulfamethoxazole AdvReac Unknown Vomiting Verified 04/06/25 16:41 trimethoprim AdvReac Unknown Vomiting Verified 04/06/25 16:41 hydrocodone (From Lortab) AdvReac Nausea and Verified 04/06/25 16:41 Vomiting Home Medications ?Medication ?Instructions ?Recorded ?Confirmed ?Type insulin lispro 100 unit/mL See Rx Instructions .Route 10/19/24 02/07/25 Rx subcutaneous pen .COMPLEX #15 mL fluoxetine 20 mg capsule 20 mg PO DAILY #90 caps 11/17/24 02/07/25 Rx gabapentin 300 mg capsule 300 mg PO Q12H #180 caps 11/17/24 02/07/25 Rx insulin glargine 100 unit/mL (3 25 unit (0.25 mL) subcut QPM #15 mL 11/17/24 02/07/25 Rx mL) subcutaneous pen (Lantus Solostar U-100 Insulin) lisinopril 10 mg tablet 10 mg PO DAILY #90 tabs 11/17/24 02/07/25 Rx simvastatin 20 mg tablet 20 mg PO HS #90 tabs 11/17/24 02/07/25 Rx sotalol 80 mg tablet See Rx Instructions .Route 11/17/24 02/07/25 Rx .COMPLEX #180 tabs metformin 1,000 mg tablet 1,000 mg PO BID #180 tabs 12/13/24 02/07/25 Rx pen needle, diabetic 31 gauge x See Rx Instructions miscellaneous 12/13/24 02/07/25 Rx 12/02 (TRUEplus Pen Needle) .COMPLEX #100 ea blood-glucose,doll surgeon,cont #1 ea 01/11/25 02/07/25 Rx (Dexcom G7 Campaign Management Senior Manager) blood sugar diagnostic (Contour #50 ea 02/24/25 Rx Plus Test Strip) blood-glucose meter (Contour Plus #1 ea 02/24/25 Rx Blue Meter) lancets 28 gauge (Comfort EZ #100 ea 02/24/25 Rx Lancets) blood-glucose sensor (Dexcom G7 #9 ea 03/15/25 03/15/25 Rx Sensor device) rivaroxaban 20 mg tablet (Xarelto) 20 mg PO QPM #30 tabs 03/30/25 Rx levofloxacin 750 mg tablet 750 mg PO DAILY 14 days #14 tabs 04/05/25 Rx Laboratory Tests 04/06/25 04/06/25 04/06/25 16:20 16:38 17:18 WBC 18.9 H K/mm3 (4.5-10.0) RBC 5.26 M/mm3 (4.2-5.4) Hgb 14.3 D g/dL (12.0-15.0) Hct 44.7 % (37.0-47.0) MCV 85.0 fl (80-100) MCH 27.2 pg (26-34) MCHC 32.0 g/dl (32-36) RDW 13.7 % (11.5-14.5) Plt Count 257 k/mm3 (150-375) MPV 9.8 fl (7.4-10.4) Immature Gran % (Auto) 0.4 % (0-0.5) Neut % (Auto) 76.0 H % (45.5-73.1) Lymph % (Auto) 15.5 L % (18.3-44.2) [place]well % (Auto) 7.5 % (2.6-8.5) Eos % (Auto) 0.4 % (0-4.4) Baso % (Auto) 0.2 % (0.2-1.2) Lymph # (Auto) 2.93 K/mm3 (0.9-3.2) Barn[place] # (Auto) 1.4 H K/mm3 (0.1-0.6) Eos # (Auto) 0.1 K/mm3 (0-0.3) Baso # (Auto) 0.0 K/mm3 (0.0-0.1) Abs Immat Gran (auto) 0.08 H K/mm3 (0.00-0.031) Absolute Neuts (auto) 14.3 H K/mm3 (1.3-6.7) Absolute Nucleated RBC 0.000 K/mm3 (0.0-0.012) Nucleated RBC % 0.0 % (0.0-0.2) PT 14.6 Seconds (11.1-14.7) INR 1.1 APTT 27.8 Seconds (22.3-36.8) Sodium 134 L mmol/L (137-145) Potassium 3.8 mmol/L (3.4-5.0) Chloride 98 mmol/L (98-107) Carbon Dioxide 25 mmol/L (22-30) Anion Gap 11 mmol/L (4-12) BUN 14 mg/dL (7-17) Creatinine 0.50 L mg/dL (0.7-1.0) Estim Creat Clear Calc 114 ml/min Estimated GFR > 60 (59 - ) Glucose 135 H mg/dL (65-110) POC Capillary Glucose 138 H mg/dl (65-105) Hemoglobin A1c 8.6 H % (<5.7) Calcium 9.1 mg/dL (8.4-10.2) Patient hx anesthesia problems: none Family hx anesthesia problems: none Results Review: All pre-operative results and documents have been reviewed as part of the pre-operative evaluation. [facility] Past Medical History Medical History Hidradenitis suppurativa Chronic anticoagulation Paroxysmal atrial fibrillation Insulin dependent diabetes mellitus (2006) Pulmonary embolism Deep venous thrombosis Depression with anxiety Hyperlipidemia Hypertension Surgical History Surgical History Status post open reduction with internal fixation of fracture Right pinky fracture Hx of removal of cyst 01/06/25 Excision of left lower quadrant abdominal wall cyst with sinus tract and 12cm intermediate layered wound closure Dr. Mac History of dilation and curettage History of cholecystectomy History of tonsillectomy History of bilateral knee replacement 2004 Family History Family History Unknown Adopted Social History Social History Social History: The patient lives with her they have been together since 2009 in a been since 2014. She has a 30-year-old daughter.. 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 She has smoked 3-4 cigarettes a day since she was a teenager. She she drinks 1 alcoholic beverage a week. She uses medical marijuana gummies frequently. She denies any illicit substance use. Surrogate medical decision maker: Han Segovia, spouse. Code status: Full code. Smoking packs per day: 0.25 Smoking cigarettes per day: 5.0 Years smoked: 30 Smoking pack-years: 7.50 Smoking status: Current every day smoker Second hand tobacco smoke exposure: No Alcohol intake: current Drinks per week: 5 Substance use: current Substance use type: marijuana Other substance usage details: Gummies every once in awhile. Do You Feel Safe in your Home?: Yes Lack of Transportation: No Lack of Food: Never True Current Housing: I Have Housing Concerned About Future Housing: No Difficulty Paying Gas/Electric Bills: No Difficulty Paying for Meds: No Currently Unemployed: No Education: Bachelor's Degree Difficulty w/ Childcare or Family Care: No Living arrangements: with family Spiritual care concerns: No Anes - Eval Final PreProcedure Day of Procedure 04/06/25 17:39 Patient weight: obese Heart: regular rate and rhythm Lungs: clear to auscultation Airway: Mallampati scale class II Neurological: alert and oriented Last oral intake: >/= 8 hours ASA classification: III Emergent: no Anesthetic plan: proceed Anesthesia type and monitoring: general LMA and standard monitoring Results Review: All pre-operative results and documents have been reviewed as part of the pre-operative evaluation. Informed Consent: The patient's anesthetic plan and its attendant risks and benefits were discussed with the patient/family/POA. Questions were solicited and answers provided to the satisfaction of the patient/family/POA.
[2025-04-06] MEDS: LACTATED RINGERS 1,000 ML 30 ML IV CONT (17:42)
[2025-04-06] MEDS: LIDO 1%/EPINEPHRINE 1:100,000 50 ML VIAL 30 ML INFILTRATE (18:18)
--- NOTE | 2025-04-06 18:40 | W.PM.PROC2 ---
Procedure Note - Detailed Date of Procedure 04/06/25 Pre-op Diagnosis Right groin abscess x 3 Post-op Diagnosis Same Procedure Performed Simple incision and drainage of right groin abscess x3 Surgeon Jayden Mac MD Project Engineering Manager Naga Moran, ARTILLERY MAINTENANCE SUPERVISOR Anesthesia General Indications Patient is a 55-year-old female who is a stone dependent diabetic who has had multiple subcutaneous abscesses groins in the past. Of the past several days she has developed 3 more areas of redness and drainage in the right groin. She was seen in the office today and clearly had 3 right groin abscess is which needed further drainage even though 2 of them was already spontaneously draining. She is admitted to the hospital started on IV antibiotics for the cellulitis and being brought down to the operating room now for incision and drainage of 3 abscesses. Findings Patient had 3 subcutaneous abscesses located in the mons pubis the superior right groin crease and then the inferior right groin crease on the medial side of the right thigh. Description of Procedure After informed consent was obtained patient brought to the operating room where she was placed supine position and then general LMA anesthesia was administered. The right leg was then frog-legged to expose the right groin and medial thigh region. The area was then prepped and draped usual sterile fashion. Time-out was then performed correctly identifying the patient as well as procedure to be performed. Site marking was verified and she was given scheduled IV antibiotics. Three abscesses were located on the right lateral part of the mons pubis, the right upper groin crease, and then the right lower groin crease towards the medial right thigh region. The 2 more superior abscesses were already spontaneously draining but 3 small openings and a small amount of necrotic tissue was noted. The more inferior larger abscess was not draining at and was fluctuant the midportion needed to be opened. I 1st started by incising and draining the largest abscess in the lower right groin crease. 1% lidocaine mixed with 0.5% Marcaine with some epinephrine is injected around the abscess cavity. A #11 blade scalpel was then used to incise abscess over the most fluctuant portion. The abscess cavity measured approximately 3x2cm. Once I incised the abscess cavity about 10cc of pus drained out the abscess cavity. A wound culture swab was obtained and sent to microbiology for routine Gram stain, aerobic, anaerobic, and fungal culture. I then cut away of the overlying skin and a small part of the necrotic subcutaneous tissue. This is only a very minor part of the procedure. All the remaining tissue appeared to be healthy viable subcutaneous tissue. I then turned my attention towards opening the other 2 abscess cavities. The smaller the 2 upper abscess cavities measures only about 1.5x1cm. This is on the lateral aspect of the right part of the mons pubis. The the larger upper abscess cavity measured approximately 2.5x2cm and was located in the upper portion of the right groin crease. Sharp scalpel was then used to incise the tissue over both of these to reveal the underlying cavity and they were drained. Small amount of necrotic tissue in the subcutaneous tissue and skin was cut away which was a very minor part of the procedure. I then irrigated all 3 abscess cavities with copious sterile saline solution. Hemostasis was then achieved electrocautery. I then injected the remaining portion of the local anesthetic mixture around all 3 abscess sites. The abscess cavities were all then packed with quarter-inch iodoform gauze. 4x4 gauze ABD pad and hypoallergenic tape was used for final dressing. The patient tolerated the procedure well no complications. All sponges, needles, and instrument counts were correct at the end procedure. EBL was _20__cc. The patient was awakened and taken to recovery in stable and satisfactory condition. Implants None Estimated Blood Loss 20 Drains No Packing Yes (Quarter-inch iodoform gauze packed in all 3 abscess cavities) Pathology Other (Wound culture sent for Gram stain, aerobic, anaerobic, and fungal culture) Complications No immediate complications Condition Stable Disposition PACU [facility] Billing Surgery - Charge Forward: Surgery Billing
--- NOTE | 2025-04-06 19:00 | PM.IMCN ---
Assessment and Plan Assessment and plan (1) Abscess of right groin: Code(s): L02.214 - Cutaneous abscess of groin Status: Acute Assessment and Plan: - primary management through general surgery team - history of hydradenitis suppurative with multiple infections, most recently had a left groin and axillary abscess in January. Currently here for evaluation of multiple right groin abscesses. - started on cefepime and vancomycin on 04/06 - previous micro reviewed, Prevotella and staphylococcus lugdunesis with no resistance on sensitivities. - patient taken to the OR this afternoon for a simple incision and drainage of right groin abscess x3 - resumed Xarelto postop - analgesics p.r.n. 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 Hold home sliding scale and metformin in case of need for contrast. - correct regimen ordered - high dose TIDWM, based off BMI - A1C 8.6 present on 04/06/2025 (5) Hyperlipidemia: Qualifiers: Hyperlipidemia type: unspecified Qualified Code(s): E78.5 - Hyperlipidemia, unspecified Code(s): E78.5 - Hyperlipidemia, unspecified Status: Chronic Assessment and Plan: - continue home medication: Simvastatin 20 mg (6) Hypertension: Qualifiers: Hypertension type: primary hypertension Qualified Code(s): I10 - Essential (primary) hypertension Code(s): I10 - Essential (primary) hypertension Status: Chronic Assessment and Plan: - chronic, currently 131/62 - continue home medications: Sotalol, lisinopril - monitor Plan Diet: Diabetic GI Prophylaxis: n/a DVT Prophylaxis: Xarelto IV fluids: None Lines/Tubes: Peripheral IV Code Status: Full code HPI Date of Consult Consult date: 04/06/25 Requesting Physician: Jayden Mac MD Primary Care Provider: Jayden Mac MD Consult Narrative Reason for consult: Medical Management Narrative: Whit Segovia is a 55 year old female with a PMH of hydradenitis suppurative them a paroxysmal atrial fibrillation on chronic anticoagulation, diabetes, PE, DVT, depression, anxiety, hyperlipidemia, and hypertension presents here with a right groin abscess. The patient presents here from the [facility] office for further evaluation of a right groin abscess. She is reporting worsening redness, swelling, pain her right groin and upper thigh for the past week. She was started on Levaquin yesterday which caused her some nausea and was evaluated today in office. She has a history significant for hidradenitis suppurative with multiple abscesses and infections in the past, most recent in December and January of 2025. She states her infections flare up with stress, has been under increased stress as of late due to her job. She was admitted directly from the general surgeon's office for IV antibiotics and surgical management of her right groin abscess. She denies any accompanying fever, chills, body aches, nausea, vomiting, or diarrhea. Initial VS at presentation: 98.9? F, HR 90, R 16, 121/61, and 99% on RA. Initial workup showed: WBC 18.9, hemoglobin 14.3, normal coags, sodium 134, creatinine 0.50 and GFR >60, glucose 135, A1c 8.6%. Review of Systems Review of Systems: All systems reviewed & are unremarkable except as noted in HPI and below PMFSH Past Medical History Medical History Hidradenitis suppurativa Chronic anticoagulation Paroxysmal atrial fibrillation Insulin dependent diabetes mellitus (2006) Pulmonary embolism Deep venous thrombosis Depression with anxiety Hyperlipidemia Hypertension Surgical History Surgical History Status post open reduction with internal fixation of fracture Right pinky fracture Hx of removal of cyst 01/06/25 Excision of left lower quadrant abdominal wall cyst with sinus tract and 12cm intermediate layered wound closure Dr. Mac History of dilation and curettage History of cholecystectomy History of tonsillectomy History of bilateral knee replacement 2005 Family History Family History Unknown Adopted Social History Social History Social History: The patient lives with her they have been together since 2009 in a been since 2014. She has a 30-year-old daughter.. 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 She has smoked 3-4 cigarettes a day since she was a teenager. She she drinks 1 alcoholic beverage a week. She uses medical marijuana gummies frequently. She denies any illicit substance use. Surrogate medical decision maker: Han Segovia, spouse. Code status: Full code. Smoking packs per day: 0.25 Smoking cigarettes per day: 5.0 Years smoked: 30 Smoking pack-years: 7.50 Smoking status: Current every day smoker Second hand tobacco smoke exposure: No Alcohol intake: current Drinks per week: 5 Substance use: current Substance use type: marijuana Other substance usage details: Gummies every once in awhile. Do You Feel Safe in your Home?: Yes Lack of Transportation: No Lack of Food: Never True Current Housing: I Have Housing Concerned About Future Housing: No Difficulty Paying Gas/Electric Bills: No Difficulty Paying for Meds: No Currently Unemployed: No Education: Bachelor's Degree Difficulty w/ Childcare or Family Care: No Living arrangements: with family Spiritual care concerns: No Meds Home Medications and Allergies Home Medications ?Medication ?Instructions ?Recorded ?Confirmed ?Type insulin lispro 100 unit/mL See Rx Instructions .Route 10/19/24 04/06/25 Rx subcutaneous pen .COMPLEX #15 mL fluoxetine 20 mg capsule 20 mg PO DAILY #90 caps 11/17/24 04/06/25 Rx gabapentin 300 mg capsule 300 mg PO Q12H #180 caps 11/17/24 04/06/25 Rx insulin glargine 100 unit/mL (3 25 unit (0.25 mL) subcut QPM #15 mL 11/17/24 04/06/25 Rx mL) subcutaneous pen (Lantus Solostar U-100 Insulin) lisinopril 10 mg tablet 10 mg PO DAILY #90 tabs 11/17/24 04/06/25 Rx simvastatin 20 mg tablet 20 mg PO HS #90 tabs 11/17/24 04/06/25 Rx sotalol 80 mg tablet See Rx Instructions .Route 11/17/24 04/06/25 Rx .COMPLEX #180 tabs metformin 1,000 mg tablet 1,000 mg PO BID #180 tabs 12/13/24 04/06/25 Rx pen needle, diabetic 31 gauge x See Rx Instructions miscellaneous 12/13/24 04/06/25 Rx 5/16 (TRUEplus Pen Needle) .COMPLEX #100 ea blood sugar diagnostic (Contour #50 ea 02/24/25 04/06/25 Rx Plus Test Strip) blood-glucose meter (Contour Plus #1 ea 02/24/25 04/06/25 Rx Blue Meter) lancets 28 gauge (Comfort EZ #100 ea 02/24/25 04/06/25 Rx Lancets) blood-glucose sensor (Dexcom G7 #9 ea 03/15/25 04/06/25 Rx Sensor device) rivaroxaban 20 mg tablet (Xarelto) 20 mg PO QPM #30 tabs 03/30/25 04/06/25 Rx levofloxacin 750 mg tablet 750 mg PO DAILY 14 days #14 tabs 04/05/25 04/06/25 Rx Allergies Allergy/AdvReac Type Severity Reaction Status Date / Time clindamycin Allergy Unknown Hives / Verified 04/06/25 16:41 Red Face celecoxib AdvReac Mild Unknown Verified 04/06/25 16:41 propoxyphene AdvReac Unknown Nausea and Verified 04/06/25 16:41 Vomiting sulfamethoxazole AdvReac Unknown Vomiting Verified 04/06/25 16:41 trimethoprim AdvReac Unknown Vomiting Verified 04/06/25 16:41 Vital Signs Vital Signs - 24 hr 04/06/25 15:05 04/06/25 15:15 04/06/25 16:30 Temperature 98.9 F 98.7 F Pulse Rate 90 91 Respiratory Rate 16 20 Blood Pressure 121/61 123/70 Pulse Oximetry 99 98 Oxygen Delivery Room Air Room Air 04/06/25 18:33 04/06/25 18:45 Temperature 98.6 F Pulse Rate 99 100 Respiratory Rate 14 18 Blood Pressure 135/52 L 150/84 H Pulse Oximetry 99 97 Oxygen Delivery Room Air Room Air Exam Const: General: comfortable and no acute distress Other: , female, nontoxic appearance HENMT: Face/Nose/Sinus: Normal nares present Mouth: Yes moist mucous membranes Eyes: General: appearance normal, both eyes and all related structures Sclera: sclerae normal Pupils: Equal, round and reactive pupils present EOM: EOMs intact bilaterally Resp: Effort & Inspection: normal respiratory effort Auscultation: clear to auscultation bilaterally Cardio: Rate: regular rate Rhythm: regular rhythm Other: S1-S2 present without murmur, rub, ectopy GI: Other: Abdomen soft, nondistended, nontender. Normoactive bowel sounds in all quadrants. Skin: Other: Erythema and induration to the right groin with 3 open wounds with packing in place. One wound to the mons pubis, 1 wound to the lateral pannus region and 1 wound to the anteromedial upper thigh. Neuro: Speech: normal speech Motor exam (neuro): 5/5 motor strength present throughout Sensory Exam: normal sensation Other: A&O x4 Extrem: General: normal to inspection Psych: Mental Status: mental status grossly normal Affect: Sad affect present Other: Good insight and judgment, very pleasant Results Labs 04/06/25 16:20 04/06/25 17:18 Labs: Short CBC 04/06/25 Range/Units 16:20 WBC 18.9 H (4.5-10.0) K/mm3 Hgb 14.3 D (12.0-15.0) g/dL Hct 44.7 (37.0-47.0) % Plt Count 257 (150-375) k/mm3 BMP 04/06/25 17:18 Sodium 134 L Potassium 3.8 Chloride 98 Carbon Dioxide 25 BUN 14 Creatinine 0.50 L Glucose 135 H Calcium 9.1 Quality VTE Prophylaxis VTE prophylaxis: pharmacologic ordered Hospitalist MIPS Advance Care Plan I have confirmed that the patient's Advanced Care Plan is present, code status is documented, or surrogate decision maker is listed in patient medical record.: Yes Medication Reconciliation I have utilized all available resources to obtain, update and review the patients current medications (includes all prescriptions, OTC, herbals, cannabis, and nutritional supplements).: Yes
[2025-04-06] MEDS: VANCOMYCIN 1,250 MG/NS 250 ML 1,250 MG/250 ML BAG 166.67 MG IVPB (20:30)
[2025-04-06] MEDS: VANCOMYCIN HCL 1,000 MG in SODIUM CHLORIDE 0.9% IV 250 ML 250 MG IVPB (22:04)
[2025-04-06] MEDS: GABAPENTIN 300 MG CAPSULE PO (22:16)
[2025-04-06] MEDS: SIMVASTATIN 20 MG TABLET PO (22:20)
[2025-04-06] MEDS: SOTALOL HCL 80 MG TABLET PO (22:20)
[2025-04-06] MEDS: INSULIN GLARGINE (*BKC) 100 UNITS/ML 25 UNITS SUB-Q (22:21)
[2025-04-07] VITALS (8 sets, daily range): BP systolic 98–124; BP diastolic 40–62; PULSE 78–108; RESP 14–20; TEMP 36.3–38.1; O2SAT 95–100
[2025-04-07 06:49] LABS: Hematocrit 49.5 % (37.0-47.0); Hemoglobin 14.5 g/dL (12.0-15.0); Immature Granulocyte Percent A 0.8 % (0-0.5); Lymphocytes Absolute Auto 1.49 K/mm3 (0.9-3.2); Mean Corpuscular HGB Conc 29.3 g/dl (32-36); Mean Corpuscular Hemoglobin 27.7 pg (26-34); Mean Corpuscular Volume 94.6 fl (80-100); Nucleated Red Blood Cells Absolute Auto 0.000 K/mm3 (0.0-0.012); Nucleated Red Blood Cells Perc 0.0 % (0.0-0.2); Platelet Count Result 221 k/mm3 (150-375); Red Blood Count 5.23 M/mm3 (4.2-5.4); White Blood Count 16.9 K/mm3 (4.5-10.0)
[2025-04-07 07:24] LABS: Anion Gap 18 mmol/L (4-12); Blood Urea Nitrogen 21 mg/dL (7-17); Calcium 8.7 mg/dL (8.4-10.2); Carbon Dioxide 14 mmol/L (22-30); Chloride 102 mmol/L (98-107); Estimated CRCL calculation 117 ml/min; Estimated Glomerular Filt Rate > 60; Glucose 168 mg/dL (65-110); Potassium 4.8 mmol/L (3.4-5.0); Sodium 134 mmol/L (137-145)
[2025-04-07 07:44] LABS: Hypochromasia 1+
[2025-04-07 07:45] LABS: Schistocytes None Seen
[2025-04-07] MEDS: VANCOMYCIN 1,500 MG/NS 500 ML 1,500 MG/500 ML BAG 250 MG IVPB ×2 (08:17→20:31)
[2025-04-07] MEDS: GABAPENTIN 300 MG CAPSULE PO ×2 (08:23→20:31)
[2025-04-07] MEDS: SOTALOL HCL 80 MG TABLET PO ×2 (08:24→20:31)
--- NOTE | 2025-04-07 08:30 | P.PNIM_ITS ---
Progress Note: A&P Assessment and Plan (1) Abscess of right groin: Code(s): L02.214 - Cutaneous abscess of groin Status: Acute Assessment and Plan: History of hydradenitis suppurative with multiple infections, most recently had a left groin and axillary abscess in January. Currently here for evaluation of multiple right groin abscesses. - primary management through general surgery team - started on cefepime and vancomycin on 04/06 - abscess culture obtained: pending previous micro reviewed, Prevotella and staphylococcus lugdunesis with no resistance on sensitivities. - patient taken to the OR on 04/06 for a simple incision and drainage of right groin abscess x3 with Dr. Mac - Xarelto resumed postop - analgesics p.r.n. -> tylenol, oxycodone, morphine - monitor WBC (2) Hidradenitis suppurativa: Code(s): L73.2 - Hidradenitis suppurativa Status: Chronic Assessment and Plan: Currently complicated by abscess x3 to the right groin S/p simple incision and drainage of right groin abscess x3 with Dr. 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 Hold home sliding scale and metformin in case of need for contrast. - correct regimen ordered - high dose TIDWM, based off BMI and lantus 25 units HS - A1C 8.6 present on 04/06/2025 Glucose stable, continue to monitor. (5) Hypertension: Qualifiers: Hypertension type: primary hypertension Qualified Code(s): I10 - Essential (primary) hypertension Code(s): I10 - Essential (primary) hypertension Status: Chronic Assessment and Plan: chronic, continue home medications - Sotalol 80 mg BID - Lisinopril 10 mg daily - Blood pressures stable, continue to monitor (6) Hyperlipidemia: Qualifiers: Hyperlipidemia type: unspecified Qualified Code(s): E78.5 - Hyperlipidemia, unspecified Code(s): E78.5 - Hyperlipidemia, unspecified Status: Chronic Assessment and Plan: - continue home medication: Simvastatin 20 mg Time Spent With Patient Time with patient: 25 - 35 minutes Subjective Date/time seen: 04/07/25 08:30 Interval history: 55 year old female with past medical history of hydradenitis suppurative them a paroxysmal atrial fibrillation on chronic anticoagulation, diabetes, PE, DVT, depression, anxiety, hyperlipidemia, and hypertension presents to the hospital with a right groin abscess. Patient is pleasant sitting up comfortably in bed. She has no complaints at this time stating that pain well controlled on the current regimen. Patient denies chest pain, palpitations, shortness of breath, nausea/vomiting and abdominal pain. She does note that she has not had a bowel movement since surgery. Review of Systems Review of Systems: All systems reviewed & are unremarkable except as noted in HPI and below Exam Narrative: AF HR 85 RR 16 Spo2 100 BP 107/59 General: female in no acute respiratory distress who is nontoxic appearing, sitting up in bed. HEENT: Normocephalic. Atraumatic. Extraocular movement intact. Sclera clear and anicteric. No facial asymmetry. Chest: Lungs are clear to auscultation bilaterally. No wheezes or crackles. CV: Heart was regular rate and rhythm. Abd: Abdomen was soft. Nontender. Nondistended. Positive bowel sounds. Ext: No clubbing, cyanosis, or edema. DP pulses bilaterally. 3 surgical incisions with packing in place. No purulent drainage. Neuro: Patient is alert and oriented x3. Speech is clear. Objective Data Vital Signs Vital Signs: Vital Signs - 24 hr 04/06/25 15:05 04/06/25 15:15 04/06/25 16:30 Temperature 98.9 F 98.7 F Pulse Rate 90 91 Respiratory Rate 16 20 Blood Pressure 121/61 123/70 Pulse Oximetry 99 98 Oxygen Delivery Room Air Room Air 04/06/25 18:33 04/06/25 18:45 04/06/25 19:00 Temperature 98.6 F Pulse Rate 99 100 97 Respiratory Rate 14 18 14 Blood Pressure 135/52 L 150/84 H 131/62 Pulse Oximetry 99 97 96 Oxygen Delivery Room Air Room Air Room Air 04/06/25 19:30 04/06/25 19:45 04/06/25 20:00 Temperature 97.8 F 98 F Pulse Rate 95 98 Respiratory Rate 18 16 Blood Pressure 122/62 115/61 Pulse Oximetry 97 97 Oxygen Delivery Room Air 04/06/25 20:25 04/06/25 20:45 04/07/25 00:47 Temperature 97.5 F L 97.5 F L 97.5 F L Pulse Rate 95 92 78 Respiratory Rate 16 18 14 Blood Pressure 106/55 L 109/52 L 98/52 L Pulse Oximetry 97 93 95 Oxygen Delivery 04/07/25 04:56 04/07/25 08:24 Temperature 97.7 F Pulse Rate 84 92 Respiratory Rate 14 Blood Pressure 117/62 Pulse Oximetry 100 Oxygen Delivery Intake/Output Intake/Output: Intake & Output 04/04/25 04/05/25 04/06/25 04/07/25 23:59 23:59 23:59 23:59 Intake Total 50 550 Balance 50 550 Meds/Results Medications: Active Medications Generic Name Dose Route Start Last Admin Trade Name Freq PRN Reason Stop Dose Admin Acetaminophen 1,000 mg 04/06/25 15:22 Acetaminophen 500 Mg Tablet PO Q6H PRN Mild Pain (1-3) or Fever Dextrose 12.5 gm 04/06/25 19:22 Dextrose 50% 25 Gm/50 Ml Syringe IV PUSH PRN PRN Hypoglycemia Protocol Fentanyl Citrate 25 mcg 04/06/25 17:39 Fentanyl Citrate Inj (*Crx) 100 Mcg/2 Ml Vial IV PUSH Q2M PRN Pain Fluoxetine HCl 20 mg 04/07/25 09:00 04/07/25 08:24 Fluoxetine Hcl 20 Mg Capsule PO 20 mg DAILY SYLVIE Administration Gabapentin 300 mg 04/06/25 22:00 04/07/25 08:23 Gabapentin 300 Mg Capsule PO 300 mg Q12HR SYLVIE Administration Glucagon 1 mg 04/06/25 19:22 Glucagon For Inj 1 Mg Vial IM PRN PRN Hypoglycemia Protocol Glucose 15 gm 04/06/25 19:22 Glucose Oral Gel 15 Gm Of Glucse In 37.5 Gm Tube PO PRN PRN Hypoglycemia Protocol Lactated Ringer's 1,000 mls @ 30 mls/hr 04/06/25 17:40 04/06/25 18:33 Lr - Lactated Ringers Iv IV CONT 30 mls/hr .Q24H SYLVIE Infusion Lactated Ringer's 1,000 mls @ 30 mls/hr 04/06/25 17:40 04/07/25 00:39 Lr - Lactated Ringers Iv IV CONT Not Given .Q24H SYLVIE Cefepime HCl 2 gm/ Sodium 50 mls @ 100 mls/hr 04/07/25 18:00 Chloride IVPB Q12H SYLVIE Dextrose 1,000 mls @ 100 mls/hr 04/06/25 19:22 Dextrose 5% 1,000 Ml IVPB PRN PRN Hypoglycemia Protocol Vancomycin HCl 1,500 mg in 500 mls @ 250 mls/hr 04/07/25 08:00 04/07/25 08:17 Vancomycin 1,500 Mg/Ns 500 Ml IVPB 250 mls/hr Q12H SYLVIE Administration Insulin Aspart 4 - 8 units 04/07/25 08:00 04/07/25 08:15 Insulin Aspart (*Bkc) 100 Units/Ml SUB-Q Not Given TIDWM [facility] Protocol Insulin Glargine 25 units 04/06/25 22:10 04/06/25 22:21 Insulin Glargine (*Bkc) 100 Units/Ml SUB-Q 25 units QPM SYLVIE Administration Lisinopril 10 mg 04/07/25 09:00 04/07/25 08:23 Lisinopril 10 Mg Tablet PO 10 mg DAILY SYLVIE Administration Morphine Sulfate 2 mg 04/06/25 15:15 Morphine Sulfate (*Crx) 2 Mg/Ml Inj IV PUSH Q2H PRN Pain Rated 4-6 Morphine Sulfate 4 mg 04/06/25 15:22 Morphine Sulfate (*Crx) 4 Mg/Ml Inj IV PUSH Q4H PRN Pain Rated 7-10 IF NPO Ondansetron HCl 4 mg 04/06/25 15:20 Ondansetron Inj 4 Mg/2 Ml Vial IV PUSH Q6H PRN Nausea And Vomiting Ondansetron HCl 4 mg 04/06/25 17:39 Ondansetron Inj 4 Mg/2 Ml Vial IV PUSH ONCE PRN Nausea Oxycodone HCl 5 mg 04/06/25 18:33 Oxycodone Hcl (*Crx) 5 Mg Tab Ir PO Q4H PRN Pain Rated 7-10 Rivaroxaban 20 mg 04/07/25 17:00 Rivaroxaban 20 Mg Tablet PO DAILY@1700 [facility] Simvastatin 20 mg 04/06/25 22:10 04/06/25 22:20 Simvastatin 20 Mg Tablet PO 20 mg HS SYLVIE Administration Sotalol HCl 80 mg 04/06/25 22:10 04/07/25 08:24 Sotalol Hcl 80 Mg Tablet PO 80 mg Q12HR SYLVIE Administration Labs Labs: Laboratory Results - last 24 hr 04/06/25 04/06/25 04/06/25 16:20 16:38 17:18 WBC 18.9 H RBC 5.26 Hgb 14.3 D Hct 44.7 MCV 85.0 MCH 27.2 MCHC 32.0 RDW 13.7 Plt Count 257 MPV 9.8 Immature Gran % (Auto) 0.4 Neut % (Auto) 76.0 H Lymph % (Auto) 15.5 L [place] % (Auto) 7.5 Eos % (Auto) 0.4 Baso % (Auto) 0.2 Lymph # (Auto) 2.93 [place] # (Auto) 1.4 H Eos # (Auto) 0.1 Baso # (Auto) 0.0 Abs Immat Gran (auto) 0.08 H Absolute Neuts (auto) 14.3 H Absolute Nucleated RBC 0.000 Band Neutrophils % Nucleated RBC % 0.0 Platelet Estimate Large Platelets Hypochromasia Schistocytes PT 14.6 INR 1.1 APTT 27.8 Sodium 134 L Potassium 3.8 Chloride 98 Carbon Dioxide 25 Anion Gap 11 BUN 14 Creatinine 0.50 L Estim Creat Clear Calc 114 Estimated GFR > 60 Glucose 135 H POC Capillary Glucose 138 H Hemoglobin A1c 8.6 H Calcium 9.1 04/06/25 04/07/25 04/07/25 19:50 06:15 07:37 WBC 16.9 H RBC 5.23 Hgb 14.5 Hct 49.5 H MCV 94.6 D MCH 27.7 MCHC 29.3 L RDW 13.5 Plt Count 221 MPV 9.7 Immature Gran % (Auto) 0.8 H Neut % (Auto) 84.8 H Lymph % (Auto) 8.8 L [place] % (Auto) 5.4 Eos % (Auto) 0.0 Baso % (Auto) 0.2 Lymph # (Auto) 1.49 [place] # (Auto) 0.9 H Eos # (Auto) 0.0 Baso # (Auto) 0.0 Abs Immat Gran (auto) 0.13 H Absolute Neuts (auto) 14.4 H Absolute Nucleated RBC 0.000 Band Neutrophils % Not Reportable Nucleated RBC % 0.0 Platelet Estimate Adequate Large Platelets Present Hypochromasia 1+ Schistocytes None seen PT INR APTT Sodium 134 L Potassium 4.8 Chloride 102 Carbon Dioxide 14 L Anion Gap 18 H BUN 21 H Creatinine 0.49 L Estim Creat Clear Calc 117 Estimated GFR > 60 Glucose 168 H POC Capillary Glucose 240 H 168 H Hemoglobin A1c Calcium 8.7 Quality VTE Prophylaxis VTE prophylaxis: pharmacologic ordered
--- NOTE | 2025-04-07 09:25 | WPDPN ---
Progress Note: A&P Assessment and Plan (1) Insulin dependent diabetes mellitus: Onset Date: 2006 Status: Acute Assessment and Plan: Management as per Hospitalist (2) Abscess of right groin: Code(s): L02.214 - Cutaneous abscess of groin Status: Acute Assessment and Plan: Right groin abscess x 3 drained. Wounds clean and packed. Continue IV abx and daily packing change. Await culture results. Subjective Date/time seen: 04/07/25 09:25 Interval history: Pt doing better, less pain in the right groin. No fever, [place] [address] [place] [id number] pre op. Cultures from abscess pending. Exam Skin: Other: Right groin abscess x 3 less redness but still indurated. No necrotic tissue or purulent drainage. Objective Data Vital Signs Vital Signs: Vital Signs - 24 hr 04/06/25 15:05 04/06/25 15:15 04/06/25 16:30 Temperature 37.2 C 37.1 C Pulse Rate 90 91 Respiratory Rate 16 20 Blood Pressure 121/61 123/70 Pulse Oximetry 99 98 Oxygen Delivery Room Air Room Air 04/06/25 18:33 04/06/25 18:45 04/06/25 19:00 Temperature 37.0 C Pulse Rate 99 100 97 Respiratory Rate 14 18 14 Blood Pressure 135/52 L 150/84 H 131/62 Pulse Oximetry 99 97 96 Oxygen Delivery Room Air Room Air Room Air 04/06/25 19:30 04/06/25 19:45 04/06/25 20:00 Temperature 36.6 C 36.6 C Pulse Rate 95 98 Respiratory Rate 18 16 Blood Pressure 122/62 115/61 Pulse Oximetry 97 97 Oxygen Delivery Room Air 04/06/25 20:25 04/06/25 20:45 04/07/25 00:47 Temperature 36.4 C L 36.4 C L 36.4 C L Pulse Rate 95 92 78 Respiratory Rate 16 18 14 Blood Pressure 106/55 L 109/52 L 98/52 L Pulse Oximetry 97 93 95 Oxygen Delivery 04/07/25 04:56 04/07/25 08:24 04/07/25 09:00 Temperature 36.5 C 36.4 C L Pulse Rate 84 92 85 Respiratory Rate 14 16 Blood Pressure 117/62 107/59 L Pulse Oximetry 100 100 Oxygen Delivery Intake/Output Intake/Output: Intake & Output 04/04/25 04/05/25 04/06/25 04/07/25 23:59 23:59 23:59 23:59 Intake Total 50 1030 Balance 50 1030 Meds/Results Medications: Active Medications Generic Name Dose Route Start Last Admin Trade Name Freq PRN Reason Stop Dose Admin Acetaminophen 1,000 mg 04/06/25 15:22 Acetaminophen 500 Mg Tablet PO Q6H PRN Mild Pain (1-3) or Fever Dextrose 12.5 gm 04/06/25 19:22 Dextrose 50% 25 Gm/50 Ml Syringe IV PUSH PRN PRN Hypoglycemia Protocol Fentanyl Citrate 25 mcg 04/06/25 17:39 Fentanyl Citrate Inj (*Crx) 100 Mcg/2 Ml Vial IV PUSH Q2M PRN Pain Fluoxetine HCl 20 mg 04/07/25 09:00 04/07/25 08:24 Fluoxetine Hcl 20 Mg Capsule PO 20 mg DAILY SYLVIE Administration Gabapentin 300 mg 04/06/25 22:00 04/07/25 08:23 Gabapentin 300 Mg Capsule PO 300 mg Q12HR SYLVIE Administration Glucagon 1 mg 04/06/25 19:22 Glucagon For Inj 1 Mg Vial IM PRN PRN Hypoglycemia Protocol Glucose 15 gm 04/06/25 19:22 Glucose Oral Gel 15 Gm Of Glucse In 37.5 Gm Tube PO PRN PRN Hypoglycemia Protocol Lactated Ringer's 1,000 mls @ 30 mls/hr 04/06/25 17:40 04/06/25 18:33 Lr - Lactated Ringers Iv IV CONT 30 mls/hr .Q24H SYLVIE Infusion Lactated Ringer's 1,000 mls @ 30 mls/hr 04/06/25 17:40 04/07/25 00:39 Lr - Lactated Ringers Iv IV CONT Not Given .Q24H SYLVIE Cefepime HCl 2 gm/ Sodium 50 mls @ 100 mls/hr 04/07/25 18:00 Chloride IVPB Q12H SYLVIE Dextrose 1,000 mls @ 100 mls/hr 04/06/25 19:22 Dextrose 5% 1,000 Ml IVPB PRN PRN Hypoglycemia Protocol Vancomycin HCl 1,500 mg in 500 mls @ 250 mls/hr 04/07/25 08:00 04/07/25 08:17 Vancomycin 1,500 Mg/Ns 500 Ml IVPB 250 mls/hr Q12H SYLVIE Administration Insulin Aspart 4 - 8 units 04/07/25 08:00 04/07/25 08:15 Insulin Aspart (*Bkc) 100 Units/Ml SUB-Q Not Given TIDWM [facility] Protocol Insulin Glargine 25 units 04/06/25 22:10 04/06/25 22:21 Insulin Glargine (*Bkc) 100 Units/Ml SUB-Q 25 units QPM SYLVIE Administration Lisinopril 10 mg 04/07/25 09:00 04/07/25 08:23 Lisinopril 10 Mg Tablet PO 10 mg DAILY SYLVIE Administration Morphine Sulfate 2 mg 04/06/25 15:15 Morphine Sulfate (*Crx) 2 Mg/Ml Inj IV PUSH Q2H PRN Pain Rated 4-6 Morphine Sulfate 4 mg 04/06/25 15:22 Morphine Sulfate (*Crx) 4 Mg/Ml Inj IV PUSH Q4H PRN Pain Rated 7-10 IF NPO Ondansetron HCl 4 mg 04/06/25 15:20 Ondansetron Inj 4 Mg/2 Ml Vial IV PUSH Q6H PRN Nausea And Vomiting Ondansetron HCl 4 mg 04/06/25 17:39 Ondansetron Inj 4 Mg/2 Ml Vial IV PUSH ONCE PRN Nausea Oxycodone HCl 5 mg 04/06/25 18:33 Oxycodone Hcl (*Crx) 5 Mg Tab Ir PO Q4H PRN Pain Rated 7-10 Rivaroxaban 20 mg 04/07/25 17:00 Rivaroxaban 20 Mg Tablet PO DAILY@1700 [facility] Simvastatin 20 mg 04/06/25 22:10 04/06/25 22:20 Simvastatin 20 Mg Tablet PO 20 mg HS [facility] Administration Sotalol HCl 80 mg 04/06/25 22:10 04/07/25 08:24 Sotalol Hcl 80 Mg Tablet PO 80 mg Q12HR SYLVIE Administration Labs Labs: Laboratory Results - last 24 hr 04/06/25 04/06/25 04/06/25 16:20 16:38 17:18 WBC 18.9 H RBC 5.26 Hgb 14.3 D Hct 44.7 MCV 85.0 MCH 27.2 MCHC 32.0 RDW 13.7 Plt Count 257 MPV 9.8 Immature Gran % (Auto) 0.4 Neut % (Auto) 76.0 H Lymph % (Auto) 15.5 L [place] % (Auto) 7.5 Eos % (Auto) 0.4 Baso % (Auto) 0.2 Lymph # (Auto) 2.93 [place] # (Auto) 1.4 H Eos # (Auto) 0.1 Baso # (Auto) 0.0 Abs Immat Gran (auto) 0.08 H Absolute Neuts (auto) 14.3 H Absolute Nucleated RBC 0.000 Band Neutrophils % Nucleated RBC % 0.0 Platelet Estimate Large Platelets Hypochromasia Schistocytes PT 14.6 INR 1.1 APTT 27.8 Sodium 134 L Potassium 3.8 Chloride 98 Carbon Dioxide 25 Anion Gap 11 BUN 14 Creatinine 0.50 L Estim Creat Clear Calc 114 Estimated GFR > 60 Glucose 135 H POC Capillary Glucose 138 H Hemoglobin A1c 8.6 H Calcium 9.1 04/06/25 04/07/25 04/07/25 19:50 06:15 07:37 WBC 16.9 H RBC 5.23 Hgb 14.5 Hct 49.5 H MCV 94.6 D MCH 27.7 MCHC 29.3 L RDW 13.5 Plt Count 221 MPV 9.7 Immature Gran % (Auto) 0.8 H Neut % (Auto) 84.8 H Lymph % (Auto) 8.8 L [place] % (Auto) 5.4 Eos % (Auto) 0.0 Baso % (Auto) 0.2 Lymph # (Auto) 1.49 [place] # (Auto) 0.9 H Eos # (Auto) 0.0 Baso # (Auto) 0.0 Abs Immat Gran (auto) 0.13 H Absolute Neuts (auto) 14.4 H Absolute Nucleated RBC 0.000 Band Neutrophils % Not Reportable Nucleated RBC % 0.0 Platelet Estimate Adequate Large Platelets Present Hypochromasia 1+ Schistocytes None seen PT INR APTT Sodium 134 L Potassium 4.8 Chloride 102 Carbon Dioxide 14 L Anion Gap 18 H BUN 21 H Creatinine 0.49 L Estim Creat Clear Calc 117 Estimated GFR > 60 Glucose 168 H POC Capillary Glucose 240 H 168 H Hemoglobin A1c Calcium 8.7
[2025-04-07] MEDS: oxyCODONE HCL (*CRX) 5 MG TAB IR PO ×3 (09:49→20:46)
[2025-04-07] MEDS: MORPHINE SULFATE (*CRX) 4 MG/ML INJ IV PUSH (10:54)
[2025-04-07] MEDS: INSULIN ASPART (*BKC) 100 UNITS/ML SUB-Q (16:59)
[2025-04-07] MEDS: RIVAROXABAN 20 MG TABLET PO (16:59)
[2025-04-07] MEDS: CEFEPIME 2 GM in SODIUM CHLORIDE 0.9% IV 50 ML 100 ML IVPB (17:01)
[2025-04-07] MEDS: INSULIN GLARGINE (*BKC) 100 UNITS/ML 25 UNITS SUB-Q (17:05)
[2025-04-07] MEDS: SIMVASTATIN 20 MG TABLET PO (20:31)
[2025-04-08] MEDS: CEFEPIME 2 GM in SODIUM CHLORIDE 0.9% IV 50 ML 100 ML IVPB ×2 (05:22→18:44)
[2025-04-08 06:00] VITALS: BP 141/61; PULSE 87; RESP 16; TEMP 36.4; O2SAT 94
[2025-04-08] MEDS: MORPHINE SULFATE (*CRX) 4 MG/ML INJ IV PUSH (06:42)
[2025-04-08 07:05] LABS: Hematocrit 40.8 % (37.0-47.0); Hemoglobin 12.9 g/dL (12.0-15.0); Mean Corpuscular HGB Conc 31.6 g/dl (32-36); Mean Corpuscular Hemoglobin 27.2 pg (26-34); Mean Corpuscular Volume 86.1 fl (80-100); Platelet Count Result 210 k/mm3 (150-375); Red Blood Count 4.74 M/mm3 (4.2-5.4); White Blood Count 13.4 K/mm3 (4.5-10.0)
[2025-04-08 07:20] LABS: Alanine Aminotransferase 11 U/L (6-35); Albumin Level 3.6 g/dL (3.5-5.1); Alkaline Phosphatase 74 U/L (38-126); Anion Gap 9 mmol/L (4-12); Aspartate Amino Transferase 25 U/L (14-36); Bilirubin,Total 0.6 mg/dL (0.2-1.3); Blood Urea Nitrogen 16 mg/dL (7-17); Calcium 8.4 mg/dL (8.4-10.2); Carbon Dioxide 23 mmol/L (22-30); Chloride 102 mmol/L (98-107); Estimated CRCL calculation 123 ml/min; Estimated Glomerular Filt Rate > 60; Glucose 124 mg/dL (65-110); Potassium 3.8 mmol/L (3.4-5.0); Sodium 134 mmol/L (137-145); Total Protein 6.7 g/dL (6.3-8.2)
--- NOTE | 2025-04-08 07:32 | P.PNIM_ITS ---
Progress Note: A&P Assessment and Plan (1) Abscess of right groin: Code(s): L02.214 - Cutaneous abscess of groin Status: Acute Assessment and Plan: History of hydradenitis suppurative with multiple infections, most recently had a left groin and axillary abscess in January. Currently here for evaluation of multiple right groin abscesses. - primary management through general surgery team - started on cefepime and vancomycin on 04/06 - abscess culture obtained: pending previous micro reviewed, Prevotella and staphylococcus lugdunesis with no resistance on sensitivities. - patient taken to the OR on 04/06 for a simple incision and drainage of right groin abscess x3 with Dr. Mac - Xarelto resumed postop - analgesics p.r.n. -> tylenol, oxycodone, morphine - monitor WBC (2) Hidradenitis suppurativa: Code(s): L73.2 - Hidradenitis suppurativa Status: Chronic Assessment and Plan: Currently complicated by abscess x3 to the right groin S/p simple incision and drainage of right groin abscess x3 with Dr. 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 Hold home sliding scale and metformin in case of need for contrast. - correct regimen ordered - high dose TIDWM, based off BMI and lantus 25 units HS - A1C 8.6 present on 04/06/2025 Glucose stable at 124 on CMP, continue to monitor. (5) Hypertension: Qualifiers: Hypertension type: primary hypertension Qualified Code(s): I10 - Essential (primary) hypertension Code(s): I10 - Essential (primary) hypertension Status: Chronic Assessment and Plan: chronic, continue home medications - Sotalol 80 mg BID - Lisinopril 10 mg daily - Blood pressures reviewed and remain stable, continue to monitor (6) Hyperlipidemia: Qualifiers: Hyperlipidemia type: unspecified Qualified Code(s): E78.5 - Hyperlipidemia, unspecified Code(s): E78.5 - Hyperlipidemia, unspecified Status: Chronic Assessment and Plan: - continue home medication: Simvastatin 20 mg Time Spent With Patient Time with patient: 15 - 25 minutes Subjective Date/time seen: 04/08/25 07:32 Interval history: 55 year old female with past medical history of hydradenitis suppurative them a paroxysmal atrial fibrillation on chronic anticoagulation, diabetes, PE, DVT, depression, anxiety, hyperlipidemia, and hypertension presents to the hospital with a right groin abscess. Patient is pleasant sitting up comfortably in bed. Patient states pain related to the abscess drain is is well controlled on the current regimen. She has no complaints denying chest pain, shortness a breath, palpitations, nausea/vomiting, abdominal pain. Review of Systems Review of Systems: All systems reviewed & are unremarkable except as noted in HPI and below Exam Narrative: AF HR 91 RR 16 Spo2 97 BP 116/59 General: female in no acute respiratory distress who is nontoxic appearing, sitting up in bed. HEENT: Normocephalic. Atraumatic. Extraocular movement intact. Sclera clear and anicteric. No facial asymmetry. Chest: Lungs are clear to auscultation bilaterally. No wheezes or crackles. CV: Heart was regular rate and rhythm. Abd: Abdomen was soft. Nontender. Nondistended. Positive bowel sounds. Ext: No clubbing, cyanosis, or edema. DP pulses bilaterally. Dressing to the right groin clean/dry/intact. Neuro: Patient is alert and oriented x3. Speech is clear. Objective Data Vital Signs Vital Signs: Vital Signs - 24 hr 04/07/25 08:00 04/07/25 08:24 04/07/25 09:00 Temperature 97.5 F L Pulse Rate 92 85 Respiratory Rate 16 Blood Pressure 107/59 L Pulse Oximetry 100 Oxygen Delivery Room Air 04/07/25 12:23 04/07/25 18:37 04/07/25 20:00 Temperature 98.0 F 98.5 F Pulse Rate 83 103 H Respiratory Rate 18 20 Blood Pressure 102/52 L 111/42 L Pulse Oximetry 96 95 Oxygen Delivery Room Air 04/07/25 22:03 04/07/25 22:30 Temperature 100.6 F H 97.4 F L Pulse Rate 108 H 95 Respiratory Rate 16 20 Blood Pressure 124/40 L 109/51 L Pulse Oximetry 95 95 Oxygen Delivery Intake/Output Intake/Output: Intake & Output 04/05/25 04/06/25 04/07/25 04/08/25 23:59 23:59 23:59 23:59 Intake Total 50 3950 Balance 50 3950 Meds/Results Medications: Active Medications Generic Name Dose Route Start Last Admin Trade Name Freq PRN Reason Stop Dose Admin Acetaminophen 1,000 mg 04/06/25 15:22 Acetaminophen 500 Mg Tablet PO Q6H PRN Mild Pain (1-3) or Fever Dextrose 12.5 gm 04/06/25 19:22 Dextrose 50% 25 Gm/50 Ml Syringe IV PUSH PRN PRN Hypoglycemia Protocol Fentanyl Citrate 25 mcg 04/06/25 17:39 Fentanyl Citrate Inj (*Crx) 100 Mcg/2 Ml Vial IV PUSH Q2M PRN Pain Fluoxetine HCl 20 mg 04/07/25 09:00 04/07/25 08:24 Fluoxetine Hcl 20 Mg Capsule PO 20 mg DAILY SYLVIE Administration Gabapentin 300 mg 04/06/25 22:00 04/07/25 20:31 Gabapentin 300 Mg Capsule PO 300 mg Q12HR SYLVIE Administration Glucagon 1 mg 04/06/25 19:22 Glucagon For Inj 1 Mg Vial IM PRN PRN Hypoglycemia Protocol Glucose 15 gm 04/06/25 19:22 Glucose Oral Gel 15 Gm Of Glucse In 37.5 Gm Tube PO PRN PRN Hypoglycemia Protocol Lactated Ringer's 1,000 mls @ 30 mls/hr 04/06/25 17:40 04/07/25 19:18 Lr - Lactated Ringers Iv IV CONT Not Given .Q24H SYLVIE Lactated Ringer's 1,000 mls @ 30 mls/hr 04/06/25 17:40 04/07/25 19:18 Lr - Lactated Ringers Iv IV CONT Not Given .Q24H SYLVIE Cefepime HCl 2 gm/ Sodium 50 mls @ 100 mls/hr 04/07/25 18:00 04/08/25 05:22 Chloride IVPB 100 mls/hr Q12H SYLVIE Administration Dextrose 1,000 mls @ 100 mls/hr 04/06/25 19:22 Dextrose 5% 1,000 Ml IVPB PRN PRN Hypoglycemia Protocol Vancomycin HCl 1,500 mg in 500 mls @ 250 mls/hr 04/07/25 08:00 04/07/25 20:31 Vancomycin 1,500 Mg/Ns 500 Ml IVPB 250 mls/hr Q12H SYLVIE Administration Insulin Aspart 4 - 8 units 04/07/25 08:00 04/07/25 16:59 Insulin Aspart (*Bkc) 100 Units/Ml SUB-Q 5 units TIDWM SYLVIE Administration Protocol Insulin Glargine 25 units 04/06/25 22:10 04/07/25 17:05 Insulin Glargine (*Bkc) 100 Units/Ml SUB-Q 25 units QPM SYLVIE Administration Lisinopril 10 mg 04/07/25 09:00 04/07/25 08:23 Lisinopril 10 Mg Tablet PO 10 mg DAILY SYLVIE Administration Morphine Sulfate 2 mg 04/06/25 15:15 Morphine Sulfate (*Crx) 2 Mg/Ml Inj IV PUSH Q2H PRN Pain Rated 4-6 Morphine Sulfate 4 mg 04/06/25 15:22 04/08/25 06:42 Morphine Sulfate (*Crx) 4 Mg/Ml Inj IV PUSH 4 mg Q4H PRN Administration Pain Rated 7-10 IF NPO Ondansetron HCl 4 mg 04/06/25 15:20 Ondansetron Inj 4 Mg/2 Ml Vial IV PUSH Q6H PRN Nausea And Vomiting Ondansetron HCl 4 mg 04/06/25 17:39 Ondansetron Inj 4 Mg/2 Ml Vial IV PUSH ONCE PRN Nausea Oxycodone HCl 5 mg 04/06/25 18:33 04/07/25 20:46 Oxycodone Hcl (*Crx) 5 Mg Tab Ir PO 5 mg Q4H PRN Administration Pain Rated 7-10 Rivaroxaban 20 mg 04/07/25 17:00 04/07/25 16:59 Rivaroxaban 20 Mg Tablet PO 20 mg DAILY@1700 SYLVIE Administration Simvastatin 20 mg 04/06/25 22:10 04/07/25 20:31 Simvastatin 20 Mg Tablet PO 20 mg HS SYLVIE Administration Sotalol HCl 80 mg 04/06/25 22:10 04/07/25 20:31 Sotalol Hcl 80 Mg Tablet PO 80 mg Q12HR SYLVIE Administration Labs Labs: Laboratory Results - last 24 hr 04/07/25 04/07/25 04/07/25 06:15 07:37 11:57 WBC 16.9 H RBC 5.23 Hgb 14.5 Hct 49.5 H MCV 94.6 D MCH 27.7 MCHC 29.3 L RDW 13.5 Plt Count 221 MPV 9.7 Immature Gran % (Auto) 0.8 H Neut % (Auto) 84.8 H Lymph % (Auto) 8.[address] [place] % (Auto) 5.4 Eos % (Auto) 0.0 Baso % (Auto) 0.2 Lymph # (Auto) 1.49 [place] # (Auto) 0.9 H Eos # (Auto) 0.0 Baso # (Auto) 0.0 Abs Immat Gran (auto) 0.13 H Absolute Neuts (auto) 14.4 H Absolute Nucleated RBC 0.000 Band Neutrophils % Not Reportable Nucleated RBC % 0.0 Platelet Estimate Adequate Large Platelets Present Hypochromasia 1+ Schistocytes None seen Sodium Potassium Chloride Carbon Dioxide Anion Gap BUN Creatinine Estim Creat Clear Calc Estimated GFR Glucose POC Capillary Glucose 168 H 197 H Calcium Total Bilirubin AST ALT Alkaline Phosphatase Total Protein Albumin Vancomycin Trough 04/07/25 04/07/25 04/08/25 16:23 20:08 07:01 WBC 13.4 H RBC 4.74 Hgb 12.9 Hct 40.8 MCV 86.1 D MCH 27.2 MCHC 31.6 L RDW 13.8 Plt Count 210 MPV 9.5 Immature Gran % (Auto) Neut % (Auto) Lymph % (Auto) [place] % (Auto) Eos % (Auto) Baso % (Auto) Lymph # (Auto) [place] # (Auto) Eos # (Auto) Baso # (Auto) Abs Immat Gran (auto) Absolute Neuts (auto) Absolute Nucleated RBC Band Neutrophils % Nucleated RBC % Platelet Estimate Large Platelets Hypochromasia Schistocytes Sodium 134 L Potassium 3.8 Chloride 102 Carbon Dioxide 23 Anion Gap 9 BUN 16 Creatinine 0.46 L Estim Creat Clear Calc 123 Estimated GFR > 60 Glucose 124 H POC Capillary Glucose 270 H 272 H Calcium 8.4 Total Bilirubin 0.6 AST 25 ALT 11 Alkaline Phosphatase 74 Total Protein 6.7 Albumin 3.6 Vancomycin Trough 9.4 L Quality VTE Prophylaxis VTE prophylaxis: pharmacologic ordered
[2025-04-08 08:08] VITALS: BP 116/59; PULSE 87; RESP 16; O2SAT 97
[2025-04-08 09:23] VITALS: PULSE 91
[2025-04-08] MEDS: GABAPENTIN 300 MG CAPSULE PO ×2 (09:23→20:48)
[2025-04-08] MEDS: SOTALOL HCL 80 MG TABLET PO ×2 (09:23→20:49)
[2025-04-08] MEDS: VANCOMYCIN 1,750 MG/NS 500 ML 1,750 MG/500 ML BAG 250 MG IVPB ×2 (09:25→15:00)
--- NOTE | 2025-04-08 09:36 | P.PN_ITS ---
Progress Note: A&P Assessment and Plan (1) Type 2 diabetes mellitus with hyperglycemia, with long-term current use of insulin: Code(s): E11.65 - Type 2 diabetes mellitus with hyperglycemia; Z79.4 - [facility] (current) use of insulin Status: Acute Assessment and Plan: Management as per hospitalist service. (2) Abscess of right groin: Code(s): L02.214 - Cutaneous abscess of groin Status: Acute Assessment and Plan: Abscesses x3 or drain. They are currently being packed. Induration improving and cellulitis is improving. White blood count is down to 13,000 today from 16,000 yesterday. Await culture results the make sure she is on the proper antibiotics and then can switch over to oral antibiotics. Get a MRSA nasopharyngeal swab of 1 has not already been done. Subjective Date/time seen: 04/08/25 09:36 Interval history: Patient had low-grade fever yesterday. T-max was 38.1?. Now she is afebrile. Otherwise her wounds are improving and she complains of much less pain. White blood count decreased down to 13,000 today from 16,000 yesterday. She continues on vancomycin for IV antibiotic therapy. Culture results are still pending. Exam Skin: Other: Right groin abscesses x3 all draining well. No purulent drainage just serous drainage. Decreasing induration. Still mild erythema around the larger cyst abscess cavity in the lower groin region upper medial thigh region of the right side. Wounds are packed quarter-inch iodoform gauze. No necrotic tissue. Objective Data Vital Signs Vital Signs: Vital Signs - 24 hr 04/07/25 12:23 04/07/25 18:37 04/07/25 20:00 Temperature 36.7 C 36.9 C Pulse Rate 83 103 H Respiratory Rate 18 20 Blood Pressure 102/52 L 111/42 L Pulse Oximetry 96 95 Oxygen Delivery Room Air 04/07/25 22:03 04/07/25 22:30 04/08/25 06:00 Temperature 38.1 C H 36.3 C L 36.4 C Pulse Rate 108 H 95 87 Respiratory Rate 16 20 16 Blood Pressure 124/40 L 109/51 L 141/61 H Pulse Oximetry 95 95 94 Oxygen Delivery 04/08/25 08:08 04/08/25 09:23 Temperature Pulse Rate 87 91 Respiratory Rate 16 Blood Pressure 116/59 L Pulse Oximetry 97 Oxygen Delivery Intake/Output Intake/Output: Intake & Output 04/05/25 04/06/25 04/07/25 04/08/25 23:59 23:59 23:59 23:59 Intake Total 50 3950 740 Balance 50 3950 740 Meds/Results Medications: Active Medications Generic Name Dose Route Start Last Admin Trade Name Freq PRN Reason Stop Dose Admin Acetaminophen 1,000 mg 04/06/25 15:22 Acetaminophen 500 Mg Tablet PO Q6H PRN Mild Pain (1-3) or Fever Dextrose 12.5 gm 04/06/25 19:22 Dextrose 50% 25 Gm/50 Ml Syringe IV PUSH PRN PRN Hypoglycemia Protocol Fentanyl Citrate 25 mcg 04/06/25 17:39 Fentanyl Citrate Inj (*Crx) 100 Mcg/2 Ml Vial IV PUSH Q2M PRN Pain Fluoxetine HCl 20 mg 04/07/25 09:00 04/08/25 09:23 Fluoxetine Hcl 20 Mg Capsule PO 20 mg DAILY SYLVIE Administration Gabapentin 300 mg 04/06/25 22:00 04/08/25 09:23 Gabapentin 300 Mg Capsule PO 300 mg Q12HR SYLVIE Administration Glucagon 1 mg 04/06/25 19:22 Glucagon For Inj 1 Mg Vial IM PRN PRN Hypoglycemia Protocol Glucose 15 gm 04/06/25 19:22 Glucose Oral Gel 15 Gm Of Glucse In 37.5 Gm Tube PO PRN PRN Hypoglycemia Protocol Lactated Ringer's 1,000 mls @ 30 mls/hr 04/06/25 17:40 04/07/25 19:18 Lr - Lactated Ringers Iv IV CONT Not Given .Q24H SYLVIE Lactated Ringer's 1,000 mls @ 30 mls/hr 04/06/25 17:40 04/07/25 19:18 Lr - Lactated Ringers Iv IV CONT Not Given .Q24H SYLVIE Cefepime HCl 2 gm/ Sodium 50 mls @ 100 mls/hr 04/07/25 18:00 04/08/25 05:22 Chloride IVPB 100 mls/hr Q12H SYLVIE Administration Dextrose 1,000 mls @ 100 mls/hr 04/06/25 19:22 Dextrose 5% 1,000 Ml IVPB PRN PRN Hypoglycemia Protocol Vancomycin HCl 1,750 mg in 500 mls @ 250 mls/hr 04/08/25 08:00 04/08/25 09:25 Vancomycin 1,750 Mg/Ns 500 Ml IVPB 250 mls/hr Q8H SYLVIE Administration Insulin Aspart 4 - 8 units 04/07/25 08:00 04/08/25 07:38 Insulin Aspart (*Bkc) 100 Units/Ml SUB-Q Not Given TIDWM [facility] Protocol Insulin Glargine 25 units 04/06/25 22:10 04/07/25 17:05 Insulin Glargine (*Bkc) 100 Units/Ml SUB-Q 25 units QPM SYLVEI Administration Lisinopril 10 mg 04/07/25 09:00 04/08/25 09:23 Lisinopril 10 Mg Tablet PO 10 mg DAILY SYLVIE Administration Morphine Sulfate 2 mg 04/06/25 15:15 Morphine Sulfate (*Crx) 2 Mg/Ml Inj IV PUSH Q2H PRN Pain Rated 4-6 Morphine Sulfate 4 mg 04/06/25 15:22 04/08/25 06:42 Morphine Sulfate (*Crx) 4 Mg/Ml Inj IV PUSH 4 mg Q4H PRN Administration Pain Rated 7-10 IF NPO Ondansetron HCl 4 mg 04/06/25 15:20 Ondansetron Inj 4 Mg/2 Ml Vial IV PUSH Q6H PRN Nausea And Vomiting Ondansetron HCl 4 mg 04/06/25 17:39 Ondansetron Inj 4 Mg/2 Ml Vial IV PUSH ONCE PRN Nausea Oxycodone HCl 5 mg 04/06/25 18:33 04/07/25 20:46 Oxycodone Hcl (*Crx) 5 Mg Tab Ir PO 5 mg Q4H PRN Administration Pain Rated 7-10 Rivaroxaban 20 mg 04/07/25 17:00 04/07/25 16:59 Rivaroxaban 20 Mg Tablet PO 20 mg DAILY@1700 SYLVIE Administration Simvastatin 20 mg 04/06/25 22:10 04/07/25 20:31 Simvastatin 20 Mg Tablet PO 20 mg HS SYLVIE Administration Sotalol HCl 80 mg 04/06/25 22:10 04/08/25 09:23 Sotalol Hcl 80 Mg Tablet PO 80 mg Q12HR SYLVIE Administration Labs Labs: Laboratory Results - last 24 hr 04/07/25 04/07/25 04/07/25 11:57 16:23 20:08 WBC RBC Hgb Hct MCV MCH MCHC RDW Plt Count MPV Sodium Potassium Chloride Carbon Dioxide Anion Gap BUN Creatinine Estim Creat Clear Calc Estimated GFR Glucose POC Capillary Glucose 197 H 270 H 272 H Calcium Total Bilirubin AST ALT Alkaline Phosphatase Total Protein Albumin Vancomycin Trough 04/08/25 04/08/25 07:01 07:35 WBC 13.4 H RBC 4.74 Hgb 12.9 Hct 40.8 MCV 86.1 D MCH 27.2 MCHC 31.6 L RDW 13.8 Plt Count 210 MPV 9.5 Sodium 134 L Potassium 3.8 Chloride 102 Carbon Dioxide 23 Anion Gap 9 BUN 16 Creatinine 0.46 L Estim Creat Clear Calc 123 Estimated GFR > 60 Glucose 124 H POC Capillary Glucose 118 H Calcium 8.4 Total Bilirubin 0.6 AST 25 ALT 11 Alkaline Phosphatase 74 Total Protein 6.7 Albumin 3.6 Vancomycin Trough 9.4 L
[2025-04-08 11:34] LABS: MRSA (PCR) NOT DETECTED (NOT DETECTE)
[2025-04-08 14:00] VITALS: BP 110/60; PULSE 84; RESP 18; TEMP 36.6; O2SAT 93
[2025-04-08] MEDS: INSULIN GLARGINE (*BKC) 100 UNITS/ML 25 UNITS SUB-Q (17:36)
[2025-04-08] MEDS: INSULIN ASPART (*BKC) 100 UNITS/ML SUB-Q (17:36)
[2025-04-08] MEDS: RIVAROXABAN 20 MG TABLET PO (17:39)
[2025-04-08] MEDS: oxyCODONE HCL (*CRX) 5 MG TAB IR PO (17:43)
[2025-04-08] MEDS: SIMVASTATIN 20 MG TABLET PO (20:48)
[2025-04-08 20:49] VITALS: PULSE 87
[2025-04-08 21:47] VITALS: BP 104/47; PULSE 85; RESP 14; TEMP 36.9; O2SAT 98
[2025-04-09] MEDS: VANCOMYCIN 1,750 MG/NS 500 ML 1,750 MG/500 ML BAG 250 MG IVPB ×3 (00:28→18:34)
[2025-04-09 06:00] VITALS: BP 127/65; PULSE 83; RESP 14; TEMP 37.1; O2SAT 95
[2025-04-09] MEDS: CEFEPIME 2 GM in SODIUM CHLORIDE 0.9% IV 50 ML 100 ML IVPB ×2 (06:17→17:08)
[2025-04-09 07:24] LABS: Estimated CRCL calculation 156 ml/min; Estimated Glomerular Filt Rate > 60
--- NOTE | 2025-04-09 07:26 | PM.IMPN ---
Progress Note: A&P Assessment and Plan (1) Abscess of right groin: Code(s): L02.214 - Cutaneous abscess of groin Status: Acute Assessment and Plan: History of hydradenitis suppurative with multiple infections, most recently had a left groin and axillary abscess in January. Currently here for evaluation of multiple right groin abscesses. - primary management through general surgery team - started on cefepime and vancomycin on 04/06 - abscess culture obtained: pending previous micro reviewed, Prevotella and staphylococcus lugdunesis with no resistance on sensitivities. - patient taken to the OR on 04/06 for a simple incision and drainage of right groin abscess x3 with Dr. Mac - Xarelto resumed postop - analgesics p.r.n. -> tylenol, oxycodone, morphine - monitor WBC (2) Hidradenitis suppurativa: Code(s): L73.2 - Hidradenitis suppurativa Status: Chronic Assessment and Plan: Currently complicated by abscess x3 to the right groin S/p simple incision and drainage of right groin abscess x3 with Dr. Mac on 04/06 See plan above (3) PAF (paroxysmal atrial fibrillation): Code(s): I48.0 - Paroxysmal atrial fibrillation Status: Chronic Assessment and Plan: Chronic Continue home medications: Sotalol 80 mg BID Xarelto 20 mg daily Remains rate controlled, continue to [facility] (4) DM2 (diabetes mellitus, type 2): Qualifiers: Diabetes mellitus complication status: with hyperglycemia Diabetes mellitus intermediate card tender insulin use: with intermediate card tender use Qualified Code(s): E11.65 - Type 2 diabetes mellitus with hyperglycemia; Z79.4 - terminal superintendent (current) use of insulin Code(s): E11.9 - Type 2 diabetes mellitus without complications Status: Chronic Assessment and Plan: - hypoglycemia protocol - POC blood glucose ACHS - home medication: Continue Lantus 25 units, Lispro 8 units TIDWM and SSI, Holding metformin in case of need for contrast. - correct regimen ordered - low dose TIDWM, 4 units lispro TIDWM, and lantus 25 units HS - A1C 8.6 present on 04/06/2025 - Follows endocrinology Dr. Sue last seen 03/15/25 (5) Hypertension: Qualifiers: Hypertension type: primary hypertension Qualified Code(s): I10 - Essential (primary) hypertension Code(s): I10 - Essential (primary) hypertension Status: Chronic Assessment and Plan: chronic, continue home medications - Sotalol 80 mg BID - Lisinopril 10 mg daily - Blood pressures reviewed and remain stable, continue to monitor (6) Hyperlipidemia: Qualifiers: Hyperlipidemia type: unspecified Qualified Code(s): E78.5 - Hyperlipidemia, unspecified Code(s): E78.5 - Hyperlipidemia, unspecified Status: Chronic Assessment and Plan: - continue home medication: Simvastatin 20 mg Time Spent With Patient Time with patient: 25 - 35 minutes Subjective Date/time seen: 04/09/25 07:26 Interval history: 55 year old female with past medical history of hydradenitis suppurative them a paroxysmal atrial fibrillation on chronic anticoagulation, diabetes, PE, DVT, depression, anxiety, hyperlipidemia, and hypertension presents to the hospital with a right groin abscess. Patient is pleasant sitting up in bed. No acute events overnight. She has no complaints denying chest pain, palpitations, shortness of breath, nausea/vomiting and abdominal pain. Review of Systems Review of Systems: All systems reviewed & are unremarkable except as noted in HPI and below Exam Narrative: AF HR General: female in no acute respiratory distress who is nontoxic appearing, sitting up in bed. HEENT: Normocephalic. Atraumatic. Extraocular movement intact. Sclera clear and anicteric. No facial asymmetry. Chest: Lungs are clear to auscultation bilaterally. No wheezes or crackles. CV: Heart was regular rate and rhythm. Abd: Abdomen was soft. Nontender. Nondistended. Positive bowel sounds. Ext: No clubbing, cyanosis, or edema. DP pulses bilaterally. Dressing to the right groin clean/dry/intact. Neuro: Patient is alert and oriented x3. Speech is clear. Objective Data Vital Signs Vital Signs: Vital Signs - 24 hr 04/08/25 08:08 04/08/25 09:23 04/08/25 14:00 Temperature 97.9 F Pulse Rate 87 91 84 Respiratory Rate 16 18 Blood Pressure 116/59 L 110/60 Pulse Oximetry 97 93 Oxygen Delivery 04/08/25 20:00 04/08/25 20:49 04/08/25 21:47 Temperature 98.4 F Pulse Rate 87 85 Respiratory Rate 14 Blood Pressure 104/47 L Pulse Oximetry 98 Oxygen Delivery Room Air 04/09/25 06:00 Temperature 98.7 F Pulse Rate 83 Respiratory Rate 14 Blood Pressure 127/65 Pulse Oximetry 95 Oxygen Delivery Intake/Output Intake/Output: Intake & Output 04/06/25 04/07/25 04/08/25 04/09/25 23:59 23:59 23:59 23:59 Intake Total 50 3950 2320 150 Balance 50 3950 2320 150 Meds/Results Medications: Active Medications Generic Name Dose Route Start Last Admin Trade Name Freq PRN Reason Stop Dose Admin Acetaminophen 1,000 mg 04/06/25 15:22 Acetaminophen 500 Mg Tablet PO Q6H PRN Mild Pain (1-3) or Fever Dextrose 12.5 gm 04/06/25 19:22 Dextrose 50% 25 Gm/50 Ml Syringe IV PUSH PRN PRN Hypoglycemia Protocol Fentanyl Citrate 25 mcg 04/06/25 17:39 Fentanyl Citrate Inj (*Crx) 100 Mcg/2 Ml Vial IV PUSH Q2M PRN Pain Fluoxetine HCl 20 mg 04/07/25 09:00 04/08/25 09:23 Fluoxetine Hcl 20 Mg Capsule PO 20 mg DAILY SYLVIE Administration Gabapentin 300 mg 04/06/25 22:00 04/08/25 20:48 Gabapentin 300 Mg Capsule PO 300 mg Q12HR SYLVIE Administration Glucagon 1 mg 04/06/25 19:22 Glucagon For Inj 1 Mg Vial IM PRN PRN Hypoglycemia Protocol Glucose 15 gm 04/06/25 19:22 Glucose Oral Gel 15 Gm Of Glucse In 37.5 Gm Tube PO PRN PRN Hypoglycemia Protocol Cefepime HCl 2 gm/ Sodium 50 mls @ 100 mls/hr 04/07/25 18:00 04/09/25 06:17 Chloride IVPB 100 mls/hr Q12H SYLVIE Administration Dextrose 1,000 mls @ 100 mls/hr 04/06/25 19:22 Dextrose 5% 1,000 Ml IVPB PRN PRN Hypoglycemia Protocol Vancomycin HCl 1,750 mg in 500 mls @ 250 mls/hr 04/08/25 08:00 04/09/25 00:28 Vancomycin 1,750 Mg/Ns 500 Ml IVPB 250 mls/hr Q8H SYLVIE Administration Insulin Aspart 4 - 8 units 04/07/25 08:00 04/08/25 17:36 Insulin Aspart (*Bkc) 100 Units/Ml SUB-Q 4 units TIDWM SYLVIE Administration Protocol Insulin Glargine 25 units 04/06/25 22:10 04/08/25 17:36 Insulin Glargine (*Bkc) 100 Units/Ml SUB-Q 25 units QPM SYLVIE Administration Lisinopril 10 mg 04/07/25 09:00 04/08/25 09:23 Lisinopril 10 Mg Tablet PO 10 mg DAILY SYLVIE Administration Morphine Sulfate 2 mg 04/06/25 15:15 Morphine Sulfate (*Crx) 2 Mg/Ml Inj IV PUSH Q2H PRN Pain Rated 4-6 Morphine Sulfate 4 mg 04/06/25 15:22 04/08/25 06:42 Morphine Sulfate (*Crx) 4 Mg/Ml Inj IV PUSH 4 mg Q4H PRN Administration Pain Rated 7-10 IF NPO Ondansetron HCl 4 mg 04/06/25 15:20 Ondansetron Inj 4 Mg/2 Ml Vial IV PUSH Q6H PRN Nausea And Vomiting Ondansetron HCl 4 mg 04/06/25 17:39 Ondansetron Inj 4 Mg/2 Ml Vial IV PUSH ONCE PRN Nausea Oxycodone HCl 5 mg 04/06/25 18:33 04/08/25 17:43 Oxycodone Hcl (*Crx) 5 Mg Tab Ir PO 5 mg Q4H PRN Administration Pain Rated 7-10 Rivaroxaban 20 mg 04/07/25 17:00 04/08/25 17:39 Rivaroxaban 20 Mg Tablet PO 20 mg DAILY@1700 SYLVIE Administration Simvastatin 20 mg 04/06/25 22:10 04/08/25 20:48 Simvastatin 20 Mg Tablet PO 20 mg HS SYLVIE Administration Sotalol HCl 80 mg 04/06/25 22:10 04/08/25 20:49 Sotalol Hcl 80 Mg Tablet PO 80 mg Q12HR SYLVIE Administration Labs Labs: Laboratory Results - last 24 hr 04/08/25 04/08/25 04/08/25 07:01 07:35 10:05 Creatinine Estim Creat Clear Calc Estimated GFR POC Capillary Glucose 118 H Nasal MRSA (PCR) Not detected Vancomycin Trough 9.4 L 04/08/25 04/08/25 04/08/25 11:37 16:30 19:47 Creatinine Estim Creat Clear Calc Estimated GFR POC Capillary Glucose 175 H 247 H 365 H Nasal MRSA (PCR) Vancomycin Trough 04/09/25 06:45 Creatinine 0.35 L Estim Creat Clear Calc 156 Estimated GFR > 60 POC Capillary Glucose Nasal MRSA (PCR) Vancomycin Trough 15.8 Quality VTE Prophylaxis VTE prophylaxis: pharmacologic ordered
[2025-04-09 07:40] LABS: Anion Gap 5 mmol/L (4-12); Blood Urea Nitrogen 11 mg/dL (7-17); Calcium 8.2 mg/dL (8.4-10.2); Carbon Dioxide 26 mmol/L (22-30); Chloride 104 mmol/L (98-107); Glucose 162 mg/dL (65-110); Potassium 3.7 mmol/L (3.4-5.0); Sodium 135 mmol/L (137-145)
[2025-04-09 09:10] VITALS: PULSE 80
[2025-04-09] MEDS: GABAPENTIN 300 MG CAPSULE PO ×2 (09:10→21:15)
[2025-04-09] MEDS: SOTALOL HCL 80 MG TABLET PO ×2 (09:10→21:38)
[2025-04-09 14:00] VITALS: BP 111/50; PULSE 78; RESP 18; TEMP 36.4; O2SAT 100
[2025-04-09] MEDS: MORPHINE SULFATE (*CRX) 2 MG/ML INJ IV PUSH (15:49)
[2025-04-09] MEDS: INSULIN ASPART (*BKC) 100 UNITS/ML SUB-Q (17:10)
[2025-04-09] MEDS: RIVAROXABAN 20 MG TABLET PO (17:10)
[2025-04-09] MEDS: INSULIN GLARGINE (*BKC) 100 UNITS/ML 25 UNITS SUB-Q (17:14)
[2025-04-09] MEDS: SIMVASTATIN 20 MG TABLET PO (21:15)
[2025-04-09] MEDS: oxyCODONE HCL (*CRX) 5 MG TAB IR PO (21:19)
[2025-04-09 21:38] VITALS: PULSE 76
[2025-04-09 21:56] VITALS: BP 132/63; PULSE 76; RESP 14; TEMP 36.7; O2SAT 98
[2025-04-10] MEDS: VANCOMYCIN 1,750 MG/NS 500 ML 1,750 MG/500 ML BAG 125 MG IVPB (03:22)
[2025-04-10 06:00] VITALS: BP 147/65; PULSE 75; RESP 14; TEMP 36.6; O2SAT 98
[2025-04-10 06:57] LABS: Anion Gap 5 mmol/L (4-12); Blood Urea Nitrogen 10 mg/dL (7-17); Calcium 8.2 mg/dL (8.4-10.2); Carbon Dioxide 30 mmol/L (22-30); Chloride 102 mmol/L (98-107); Estimated CRCL calculation 164 ml/min; Estimated Glomerular Filt Rate > 60; Glucose 184 mg/dL (65-110); Potassium 3.6 mmol/L (3.4-5.0); Sodium 137 mmol/L (137-145)
[2025-04-10 08:06] VITALS: PULSE 84
[2025-04-10] MEDS: SOTALOL HCL 80 MG TABLET PO ×2 (08:06→21:11)
[2025-04-10] MEDS: GABAPENTIN 300 MG CAPSULE PO ×2 (08:06→21:10)
[2025-04-10] MEDS: INSULIN ASPART (*BKC) 100 UNITS/ML SUB-Q ×5 (08:07→17:14)
[2025-04-10] MEDS: CEFEPIME 2 GM in SODIUM CHLORIDE 0.9% IV 50 ML 100 ML IVPB (08:15)
[2025-04-10 09:07] LABS: Hematocrit 38.6 % (37.0-47.0); Hemoglobin 12.2 g/dL (12.0-15.0); Mean Corpuscular HGB Conc 31.6 g/dl (32-36); Mean Corpuscular Hemoglobin 27.1 pg (26-34); Mean Corpuscular Volume 85.6 fl (80-100); Platelet Count Result 214 k/mm3 (150-375); Red Blood Count 4.51 M/mm3 (4.2-5.4); White Blood Count 6.7 K/mm3 (4.5-10.0)
[2025-04-10] MEDS: oxyCODONE HCL (*CRX) 5 MG TAB IR PO ×2 (11:11→21:10)
--- NOTE | 2025-04-10 11:30 | PM.IMPN ---
Progress Note: A&P Assessment and Plan (1) Abscess of right groin: Code(s): L02.214 - Cutaneous abscess of groin Status: Acute Assessment and Plan: History of hydradenitis suppurative with multiple infections, most recently had a left groin and axillary abscess in January. Currently here for evaluation of multiple right groin abscesses. - primary management through general surgery team - remains on cefepime and vancomycin, started on 04/06 - abscess culture obtained: gram stain: many gram + cocci and gram - rods culture pending previous micro reviewed, Prevotella and staphylococcus lugdunesis with no resistance on sensitivities. - patient taken to the OR on 04/06 for a simple incision and drainage of right groin abscess x3 with Dr. Mac - Xarelto resumed postop - analgesics p.r.n. -> tylenol, oxycodone, morphine - monitor WBC (2) Hidradenitis suppurativa: Code(s): L73.2 - Hidradenitis suppurativa Status: Chronic Assessment and Plan: Currently complicated by abscess x3 to the right groin S/p simple incision and drainage of right groin abscess x3 with Dr. Mac on 04/06 See plan above (3) PAF (paroxysmal atrial fibrillation): Code(s): I48.0 - Paroxysmal atrial fibrillation Status: Chronic Assessment and Plan: Chronic Continue home medications: Sotalol 80 mg BID Xarelto 20 mg daily Remains rate controlled, continue to montior (4) DM2 (diabetes mellitus, type 2): Qualifiers: Diabetes mellitus custodial insulin use: with custodial use Diabetes mellitus complication status: with hyperglycemia Qualified Code(s): E11.65 - Type 2 diabetes mellitus with hyperglycemia; Z79.4 - nursing home (current) use of insulin Code(s): E11.9 - Type 2 diabetes mellitus without complications Status: Chronic Assessment and Plan: - hypoglycemia protocol - POC blood glucose ACHS - home medication: Continue Lantus 25 units, Lispro 8 units TIDWM and SSI, Holding metformin in case of need for contrast. - correct regimen ordered - low dose TIDWM, 4 units lispro TIDWM, and lantus 25 units HS - A1C 8.6 present on 04/06/2025 - Follows endocrinology Dr. Sue last seen 03/15/25 Glucose stable, continue to monitor. Patient states blood glucose stable on home regimen. She is to resume home regimen at time of discharge. (5) Hypertension: Qualifiers: Hypertension type: primary hypertension Qualified Code(s): I10 - Essential (primary) hypertension Code(s): I10 - Essential (primary) hypertension Status: Chronic Assessment and Plan: chronic, continue home medications - Sotalol 80 mg BID - Lisinopril 10 mg daily - Blood pressures reviewed and remain stable, continue to monitor (6) Hyperlipidemia: Qualifiers: Hyperlipidemia type: unspecified Qualified Code(s): E78.5 - Hyperlipidemia, unspecified Code(s): E78.5 - Hyperlipidemia, unspecified Status: Chronic Assessment and Plan: - continue home medication: Simvastatin 20 mg Time Spent With Patient Time with patient: 15 - 25 minutes Subjective Date/time seen: 04/10/25 11:30 Interval history: 55 year old female with past medical history of hydradenitis suppurative them a paroxysmal atrial fibrillation on chronic anticoagulation, diabetes, PE, DVT, depression, anxiety, hyperlipidemia, and hypertension presents to the hospital with a right groin abscess. Patient is pleasant lying comfortably in bed. She states that the pain associated with her surgical wound is well controlled on the current regimen. She has no complaints denying chest pain, shortness a breath, palpitations, nausea/vomiting, abdominal pain. Review of Systems Review of Systems: All systems reviewed & are unremarkable except as noted in HPI and below Exam Narrative: AF HR 75 RR 14 SpO2 98 Bp 147/65 General: female in no acute respiratory distress who is nontoxic appearing, sitting up in bed. HEENT: Normocephalic. Atraumatic. Extraocular movement intact. Sclera clear and anicteric. No facial asymmetry. Chest: Lungs are clear to auscultation bilaterally. CV: Heart was regular rate and rhythm. Abd: Abdomen was soft. Nontender. Nondistended. Positive bowel sounds. Ext: No clubbing, cyanosis, or edema. DP pulses bilaterally. Dressing to the right groin clean/dry/intact. Neuro: Patient is alert and oriented x3. Speech is clear. Objective Data Vital Signs Vital Signs: Vital Signs - 24 hr 04/09/25 14:00 04/09/25 20:00 04/09/25 21:38 Temperature 97.6 F Pulse Rate 78 76 Respiratory Rate 18 Blood Pressure 111/50 L Pulse Oximetry 100 Oxygen Delivery Room Air 04/09/25 21:56 04/10/25 06:00 04/10/25 08:00 Temperature 98.0 F 97.9 F Pulse Rate 76 75 Respiratory Rate 14 14 Blood Pressure 132/63 147/65 H Pulse Oximetry 98 98 Oxygen Delivery Room Air 04/10/25 08:06 Temperature Pulse Rate 84 Respiratory Rate Blood Pressure Pulse Oximetry Oxygen Delivery Intake/Output Intake/Output: Intake & Output 04/07/25 04/08/25 04/09/25 04/10/25 23:59 23:59 23:59 23:59 Intake Total 3950 2320 2470 740 Balance 3950 2320 2479 740 Meds/Results Medications: Active Medications Generic Name Dose Route Start Last Admin Trade Name Freq PRN Reason Stop Dose Admin Acetaminophen 1,000 mg 04/06/25 15:22 Acetaminophen 500 Mg Tablet PO Q6H PRN Mild Pain (1-3) or Fever Dextrose 12.5 gm 04/06/25 19:22 Dextrose 50% 25 Gm/50 Ml Syringe IV PUSH PRN PRN Hypoglycemia Protocol Fentanyl Citrate 25 mcg 04/06/25 17:39 Fentanyl Citrate Inj (*Crx) 100 Mcg/2 Ml Vial IV PUSH Q2M PRN Pain Fluoxetine HCl 20 mg 04/07/25 09:00 04/10/25 08:07 Fluoxetine Hcl 20 Mg Capsule PO 20 mg DAILY SYLVIE Administration Gabapentin 300 mg 04/06/25 22:00 04/10/25 08:06 Gabapentin 300 Mg Capsule PO 300 mg Q12HR SYLVIE Administration Glucagon 1 mg 04/06/25 19:22 Glucagon For Inj 1 Mg Vial IM PRN PRN Hypoglycemia Protocol Glucose 15 gm 04/06/25 19:22 Glucose Oral Gel 15 Gm Of Glucse In 37.5 Gm Tube PO PRN PRN Hypoglycemia Protocol Cefepime HCl 2 gm/ Sodium 50 mls @ 100 mls/hr 04/07/25 18:00 04/10/25 08:15 Chloride IVPB 100 mls/hr Q12H SYLVIE Administration Dextrose 1,000 mls @ 100 mls/hr 04/06/25 19:22 Dextrose 5% 1,000 Ml IVPB PRN PRN Hypoglycemia Protocol Vancomycin HCl 1,750 mg in 500 mls @ 125 mls/hr 04/10/25 03:00 04/10/25 03:22 Vancomycin 1,750 Mg/Ns 500 Ml IVPB 125 mls/hr Q8H SYLVIE Administration Insulin Aspart 2 - 5 units 04/09/25 17:00 04/10/25 08:07 Insulin Aspart (*Bkc) 100 Units/Ml SUB-Q Not Given TIDWM [facility] Protocol Insulin Aspart 4 units 04/09/25 17:00 04/10/25 08:07 Insulin Aspart (*Bkc) 100 Units/Ml 0.05 units/kg (4 units) 4 units SUB-Q Administration TIDWM [facility] Insulin Glargine 25 units 04/06/25 22:10 04/09/25 17:14 Insulin Glargine (*Bkc) 100 Units/Ml SUB-Q 25 units QPM SYLVIE Administration Lisinopril 10 mg 04/07/25 09:00 04/10/25 08:07 Lisinopril 10 Mg Tablet PO 10 mg DAILY SYLVIE Administration Morphine Sulfate 4 mg 04/06/25 15:22 04/08/25 06:42 Morphine Sulfate (*Crx) 4 Mg/Ml Inj IV PUSH 4 mg Q4H PRN Administration Pain Rated 7-10 IF NPO Morphine Sulfate 2 mg 04/10/25 10:23 Morphine Sulfate (*Crx) 4 Mg/Ml Inj IV PUSH Q2H PRN Pain Rated 4-6 Ondansetron HCl 4 mg 04/06/25 15:20 Ondansetron Inj 4 Mg/2 Ml Vial IV PUSH Q6H PRN Nausea And Vomiting Ondansetron HCl 4 mg 04/06/25 17:39 Ondansetron Inj 4 Mg/2 Ml Vial IV PUSH ONCE PRN Nausea Oxycodone HCl 5 mg 04/06/25 18:33 04/10/25 11:11 Oxycodone Hcl (*Crx) 5 Mg Tab Ir PO 5 mg Q4H PRN Administration Pain Rated 7-10 Rivaroxaban 20 mg 04/07/25 17:00 04/09/25 17:10 Rivaroxaban 20 Mg Tablet PO 20 mg DAILY@1700 [facility] Administration Simvastatin 20 mg 04/06/25 22:10 04/09/25 21:15 Simvastatin 20 Mg Tablet PO 20 mg HS SYLVIE Administration Sotalol HCl 80 mg 04/06/25 22:10 04/10/25 08:06 Sotalol Hcl 80 Mg Tablet PO 80 mg Q12HR SYLVIE Administration Labs Labs: Laboratory Results - last 24 hr 04/09/25 04/09/25 04/09/25 11:35 16:54 21:40 WBC RBC Hgb Hct MCV MCH MCHC RDW Plt Count MPV Sodium Potassium Chloride Carbon Dioxide Anion Gap BUN Creatinine Estim Creat Clear Calc Estimated GFR Glucose POC Capillary Glucose 197 H 175 H 236 H Calcium 04/10/25 04/10/25 06:17 07:36 WBC 6.7 RBC 4.51 Hgb 12.2 Hct 38.6 MCV 85.6 MCH 27.1 MCHC 31.6 L RDW 13.5 Plt Count 214 MPV 10.2 Sodium 137 Potassium 3.6 Chloride 102 Carbon Dioxide 30 Anion Gap 5 BUN 10 Creatinine 0.33 L Estim Creat Clear Calc 164 Estimated GFR > 60 Glucose 184 H POC Capillary Glucose 193 H Calcium 8.2 L Quality VTE Prophylaxis VTE prophylaxis: pharmacologic ordered
[2025-04-10 12:45] LABS: MRSA (PCR) NOT DETECTED (NOT DETECTE)
--- NOTE | 2025-04-10 13:03 | P.PNGS_ITS ---
Progress Note: A&P Assessment and Plan (1) Abscess of right groin: Code(s): L02.214 - Cutaneous abscess of groin Status: Acute Assessment and Plan: * Right groin abscesses x 3 continue to improve s/p incision and drainage. Continue daily packing with 1/4 iodoform gauze daily. * There is a new small abscess near the superior right groin abscess on the upper anterior thigh. Will proceed with bedside I&D today. Description of the procedure, risks, benefits, and alternatives were discussed with the patient and she agrees to proceed. * Discussed antibiotics with ID pharmacist today d/t concern of inappropriate coverage. Abscess cultures from surgery are still pending. Gram stain showed gram-positive cocci and gram-negative rods. Cultures from her abscess in January grew Prevotella and Staphylococcus lugdunesis. Will adjust antibiotics to Ceftriaxone IV and metronidazole. Will also add doxycycline for coverage of her right axillary hidradenitis flare. * May consider Infectious disease consultation if no improvement. (2) Hidradenitis suppurativa: Code(s): L73.2 - Hidradenitis suppurativa Status: Chronic Assessment and Plan: * Flare of right axillary hidradenitis. No drainage and no area of fluctuance. Will start doxycycline and monitor. (3) Type 2 diabetes mellitus with hyperglycemia, with long-term current use of insulin: Code(s): E11.65 - Type 2 diabetes mellitus with hyperglycemia; Z79.4 - [facility] (current) use of insulin Status: Acute Assessment and Plan: * Management as per hospitalist service. Plan I have discussed the patient's case and plan of care with Dr. Mac. Subjective Subjective Date/Time Seen: 04/10/25 13:03 Patient reports: afebrile Interval history: Patient complaining of right axillary swelling and tenderness starting this morning. Otherwise, she is feeling better with less pain in her right groin. No other complaints at this time. Exam Const: General: comfortable and no acute distress Skin: Other: Right axillary pits and scarring consistent with hidradenitis, with about a golf ball-sized area of swelling and very mild erythema, no fluctuance or drainage. Left axilla with multiple areas of pits and tunneling with 1 small pit containing scant penaloza bloody drainage and induration, no erythema or warmth, no tenderness. Right groin dressings removed and packing removed. Three abscesses with no purulence drainage and overall erythema improved. There is a new area lateral to the right superior groin abscess, measuring 1.5 x 1 cm with erythema, tenderness, and fluctuance. Objective Data Vital Signs Vital Signs: Vital Signs - 24 hr 04/09/25 14:00 04/09/25 20:00 04/09/25 21:38 Temperature 97.6 F Pulse Rate 78 76 Respiratory Rate 18 Blood Pressure 111/50 L Pulse Oximetry 100 Oxygen Delivery Room Air 04/09/25 21:56 04/10/25 06:00 04/10/25 08:00 Temperature 98.0 F 97.9 F Pulse Rate 76 75 Respiratory Rate 14 14 Blood Pressure 132/63 147/65 H Pulse Oximetry 98 98 Oxygen Delivery Room Air 04/10/25 08:06 Temperature Pulse Rate 84 Respiratory Rate Blood Pressure Pulse Oximetry Oxygen Delivery Intake/Output Intake/Output: Intake & Output 04/07/25 04/08/25 04/09/25 04/10/25 23:59 23:59 23:59 23:59 Intake Total 3950 2320 2470 740 Balance 3950 2320 2470 740 Meds/Results Medications: Active Medications Generic Name Dose Route Start Last Admin Trade Name Freq PRN Reason Stop Dose Admin Acetaminophen 1,000 mg 04/06/25 15:22 Acetaminophen 500 Mg Tablet PO Q6H PRN Mild Pain (1-3) or Fever Dextrose 12.5 gm 04/06/25 19:22 Dextrose 50% 25 Gm/50 Ml Syringe IV PUSH PRN PRN Hypoglycemia Protocol Fentanyl Citrate 25 mcg 04/06/25 17:39 Fentanyl Citrate Inj (*Crx) 100 Mcg/2 Ml Vial IV PUSH Q2M PRN Pain Fluoxetine HCl 20 mg 04/07/25 09:00 04/10/25 08:07 Fluoxetine Hcl 20 Mg Capsule PO 20 mg DAILY SYLVIE Administration Gabapentin 300 mg 04/06/25 22:00 04/10/25 08:06 Gabapentin 300 Mg Capsule PO 300 mg Q12HR SYLVIE Administration Glucagon 1 mg 04/06/25 19:22 Glucagon For Inj 1 Mg Vial IM PRN PRN Hypoglycemia Protocol Glucose 15 gm 04/06/25 19:22 Glucose Oral Gel 15 Gm Of Glucse In 37.5 Gm Tube PO PRN PRN Hypoglycemia Protocol Cefepime HCl 2 gm/ Sodium 50 mls @ 100 mls/hr 04/07/25 18:00 04/10/25 08:15 Chloride IVPB 100 mls/hr Q12H SYLVIE Administration Dextrose 1,000 mls @ 100 mls/hr 04/06/25 19:22 Dextrose 5% 1,000 Ml IVPB PRN PRN Hypoglycemia Protocol Vancomycin HCl 1,750 mg in 500 mls @ 125 mls/hr 04/10/25 03:00 04/10/25 03:22 Vancomycin 1,750 Mg/Ns 500 Ml IVPB 125 mls/hr Q8H SYLVIE Administration Insulin Aspart 2 - 5 units 04/09/25 17:00 04/10/25 11:46 Insulin Aspart (*Bkc) 100 Units/Ml SUB-Q 2 units TIDWM SYLVIE Administration Protocol Insulin Aspart 4 units 04/09/25 17:00 04/10/25 11:47 Insulin Aspart (*Bkc) 100 Units/Ml 0.05 units/kg (4 units) 4 units SUB-Q Administration TIDWM [facility] Insulin Glargine 25 units 04/06/25 22:10 04/09/25 17:14 Insulin Glargine (*Bkc) 100 Units/Ml SUB-Q 25 units QPM SYLVIE Administration Lisinopril 10 mg 04/07/25 09:00 04/10/25 08:07 Lisinopril 10 Mg Tablet PO 10 mg DAILY [facility] Administration Metronidazole 500 mg 04/10/25 14:00 Metronidazole 500 Mg Tablet PO Q8HR [facility] Morphine Sulfate 4 mg 04/06/25 15:22 04/08/25 06:42 Morphine Sulfate (*Crx) 4 Mg/Ml Inj IV PUSH 4 mg Q4H PRN Administration Pain Rated 7-10 IF NPO Morphine Sulfate 2 mg 04/10/25 10:23 Morphine Sulfate (*Crx) 4 Mg/Ml Inj IV PUSH Q2H PRN Pain Rated 4-6 Ondansetron HCl 4 mg 04/06/25 15:20 Ondansetron Inj 4 Mg/2 Ml Vial IV PUSH Q6H PRN Nausea And Vomiting Ondansetron HCl 4 mg 04/06/25 17:39 Ondansetron Inj 4 Mg/2 Ml Vial IV PUSH ONCE PRN Nausea Oxycodone HCl 5 mg 04/06/25 18:33 04/10/25 11:11 Oxycodone Hcl (*Crx) 5 Mg Tab Ir PO 5 mg Q4H PRN Administration Pain Rated 7-10 Rivaroxaban 20 mg 04/07/25 17:00 04/09/25 17:10 Rivaroxaban 20 Mg Tablet PO 20 mg DAILY@1700 SYLVIE Administration Simvastatin 20 mg 04/06/25 22:10 04/09/25 21:15 Simvastatin 20 Mg Tablet PO 20 mg HS SYLVIE Administration Sotalol HCl 80 mg 04/06/25 22:10 04/10/25 08:06 Sotalol Hcl 80 Mg Tablet PO 80 mg Q12HR SYLVIE Administration Labs Labs: Laboratory Results - last 24 hr 04/09/25 04/09/25 04/10/25 16:54 21:40 06:17 WBC 6.7 RBC 4.51 Hgb 12.2 Hct 38.6 MCV 85.6 MCH 27.1 MCHC 31.6 L RDW 13.5 Plt Count 214 MPV 10.2 Sodium 137 Potassium 3.6 Chloride 102 Carbon Dioxide 30 Anion Gap 5 BUN 10 Creatinine 0.33 L Estim Creat Clear Calc 164 Estimated GFR > 60 Glucose 184 H POC Capillary Glucose 175 H 236 H Calcium 8.2 L Nasal MRSA (PCR) 04/10/25 04/10/25 04/10/25 07:36 11:05 11:27 WBC RBC Hgb Hct MCV MCH MCHC RDW Plt Count MPV Sodium Potassium Chloride Carbon Dioxide Anion Gap BUN Creatinine Estim Creat Clear Calc Estimated GFR Glucose POC Capillary Glucose 193 H 232 H Calcium Nasal MRSA (PCR) Not detected
--- NOTE | 2025-04-10 13:59 | W.PM.PROC2 ---
Procedure Note - Detailed Date of Procedure 04/10/25 Pre-op Diagnosis Right thigh Abscess Post-op Diagnosis Same Procedure Performed Incision and drainage simple right thigh abscess Surgeon JADE Castaneda [employer] Cutting Machine Operator MARKIE Chávez Anesthesia Local (Lidocaine 1% with epinephrine) Indications This is a 55 year old female with history of hidradenitis suppurative and multiple abscesses and infections. She recently had I&D right groin abscesses x 3 and has developed an additional small abscess in the right anterior upper thigh. Will proceed now with incision and drainage at the bedside with local anesthetic. Findings Simple right thigh abscess Description of Procedure The patient was placed in the supine position. The site of the abscess was identified. This area was prepped with iodine and draped. Then, local anesthetic was infiltrated directly over the area of fluctuance. After allowing time for local anesthetic to take affect, a direct incision was made with an #11 blade scalpel over the fluctuant area of the abscess. Flow of purulent drainage was noted. All purulent drainage was expressed from the abscess and the abscess cavity was probed. All loculation were broken up. Following this, the area was packed with 1/4 inch iodoform gauze. The area was then covered with 4x4 gauze and tape. Estimated Blood Loss 0 Drains No Packing Yes (1/4 iodoform packing) Pathology None sent Complications No immediate complications Condition Stable Disposition No change [facility] Billing Surgery - Charge Forward: Surgery Billing
[2025-04-10 14:00] VITALS: BP 110/55; PULSE 81; RESP 18; TEMP 36.1; O2SAT 99
[2025-04-10] MEDS: cefTRIAXone 2 GM in SODIUM CHLORIDE 0.9% IV 100 ML 200 ML IVPB (14:35)
[2025-04-10] MEDS: RIVAROXABAN 20 MG TABLET PO (17:13)
[2025-04-10] MEDS: INSULIN GLARGINE (*BKC) 100 UNITS/ML 25 UNITS SUB-Q (17:15)
[2025-04-10] MEDS: DOXYCYCLINE HYCLATE 100 MG TABLET PO (21:10)
[2025-04-10 21:11] VITALS: PULSE 76
[2025-04-10] MEDS: SIMVASTATIN 20 MG TABLET PO (21:11)
[2025-04-10 21:54] VITALS: BP 117/58; PULSE 75; RESP 18; TEMP 36.4; O2SAT 99
[2025-04-11 05:23] VITALS: BP 129/68; PULSE 74; RESP 16; TEMP 36.8; O2SAT 94
[2025-04-11 07:14] LABS: Anion Gap 6 mmol/L (4-12); Blood Urea Nitrogen 10 mg/dL (7-17); Calcium 8.5 mg/dL (8.4-10.2); Carbon Dioxide 31 mmol/L (22-30); Chloride 99 mmol/L (98-107); Estimated CRCL calculation 160 ml/min; Estimated Glomerular Filt Rate > 60; Glucose 251 mg/dL (65-110); Potassium 3.8 mmol/L (3.4-5.0); Sodium 136 mmol/L (137-145)
[2025-04-11 08:52] VITALS: PULSE 95
[2025-04-11] MEDS: DOXYCYCLINE HYCLATE 100 MG TABLET PO (08:52)
[2025-04-11] MEDS: GABAPENTIN 300 MG CAPSULE PO (08:52)
[2025-04-11] MEDS: SOTALOL HCL 80 MG TABLET PO (08:52)
[2025-04-11] MEDS: INSULIN ASPART (*BKC) 100 UNITS/ML SUB-Q ×3 (08:53→12:17)
--- NOTE | 2025-04-11 08:58 | PM.IMPN ---
Progress Note: A&P Assessment and Plan (1) Abscess of right groin: Code(s): L02.214 - Cutaneous abscess of groin Status: Acute Assessment and Plan: History of hydradenitis suppurative with multiple infections, most recently had a left groin and axillary abscess in January. Currently here for evaluation of multiple right groin abscesses. - primary management through general surgery team - cefepime and vancomycin started on 04/06, transitioned to Rocephin and Flagyl on 04/10 - abscess culture obtained: gram stain: many gram + cocci and gram - rods culture pending previous micro reviewed, Prevotella and staphylococcus lugdunesis with no resistance on sensitivities. - patient taken to the OR on 04/06 for a simple incision and drainage of right groin abscess x3 with Dr. Bubba Adams resumed postop - analgesics p.r.n. -> tylenol, oxycodone, morphine - monitor WBC Patient required another I&D at the bedside on 04/10, performed by MENDEZ Brasher 4 abscesses to right groin with no purulence Infectious disease consulted per surgery for further antibiotic recommendations (2) Hidradenitis suppurativa: Code(s): L73.2 - Hidradenitis suppurativa Status: Chronic Assessment and Plan: Currently complicated by abscess x3 to the right groin. See plan above . Flare noted to the right axillary. No drainage and no area of fluctuance. Started on doxycycline on 04/10 by surgery (3) PAF (paroxysmal atrial fibrillation): Code(s): I48.0 - Paroxysmal atrial fibrillation Status: Chronic Assessment and Plan: Chronic Continue home medications: Sotalol 80 mg BID Xarelto 20 mg daily Remains rate controlled, continue to montior (4) DM2 (diabetes mellitus, type 2): Qualifiers: Diabetes mellitus complication status: with hyperglycemia Diabetes mellitus half-way insulin use: with long term care pharmacist use Qualified Code(s): E11.65 - Type 2 diabetes mellitus with hyperglycemia; Z79.4 - jail (current) use of insulin Code(s): E11.9 - Type 2 diabetes mellitus without complications Status: Chronic Assessment and Plan: - hypoglycemia protocol - POC blood glucose ACHS - home medication: Continue Lantus 25 units, Lispro 8 units TIDWM and SSI, Holding metformin in case of need for contrast. - correct regimen ordered - low dose TIDWM, 8 units lispro TIDWM, and lantus 25 units HS - A1C 8.6 present on 04/06/2025 - Follows endocrinology Dr. Sue last seen 03/15/25 Continue to monitor glucose levels, patient may need adjustment to meal time insulin. (5) Hypertension: Qualifiers: Hypertension type: primary hypertension Qualified Code(s): I10 - Essential (primary) hypertension Code(s): I10 - Essential (primary) hypertension Status: Chronic Assessment and Plan: chronic, continue home medications - Sotalol 80 mg BID - Lisinopril 10 mg daily - Blood pressures reviewed and remain stable, continue to monitor (6) Hyperlipidemia: Qualifiers: Hyperlipidemia type: unspecified Qualified Code(s): E78.5 - Hyperlipidemia, unspecified Code(s): E78.5 - Hyperlipidemia, unspecified Status: Chronic Assessment and Plan: - continue home medication: Simvastatin 20 mg Time Spent With Patient Time with patient: 25 - 35 minutes Subjective Date/time seen: 04/11/25 08:58 Interval history: 55 year old female with past medical history of hydradenitis suppurative them a paroxysmal atrial fibrillation on chronic anticoagulation, diabetes, PE, DVT, depression, anxiety, hyperlipidemia, and hypertension presents to the hospital with a right groin abscess. Patient is pleasant sitting up comfortably in bed with family at bedside. Patient is a bit tearful throughout the assessment given the need of any repeat I&D yesterday. She states that the right axillary abscess popped overnight on its own. She states that pain is well controlled on the current regimen. She has no other complaints denying chest pain, shortness a breath, palpitations, nausea/vomiting, and abdominal pain. Review of Systems Review of Systems: All systems reviewed & are unremarkable except as noted in HPI and below Exam Narrative: AF HR 74 RR 16 SPO2 94 Bp 129/68 General: female in no acute respiratory distress who is nontoxic appearing, sitting up in bed. HEENT: Normocephalic. Atraumatic. Extraocular movement intact. Sclera clear and anicteric. No facial asymmetry. Chest: Lungs are clear to auscultation bilaterally. CV: Heart was regular rate and rhythm. Abd: Abdomen was soft. Nontender. Nondistended. Positive bowel sounds. Ext: No clubbing, cyanosis, or edema. DP pulses bilaterally. Right axilla with area of induration. 4 abscesses to right groin with no purulence. Objective Data Vital Signs Vital Signs: Vital Signs - 24 hr 04/10/25 14:00 04/10/25 20:00 04/10/25 21:11 Temperature 96.9 F L Pulse Rate 81 76 Respiratory Rate 18 Blood Pressure 110/55 L Pulse Oximetry 99 Oxygen Delivery Room Air 04/10/25 21:54 04/11/25 05:23 04/11/25 08:52 Temperature 97.5 F L 98.3 F Pulse Rate 75 74 95 Respiratory Rate 18 16 Blood Pressure 117/58 L 129/68 Pulse Oximetry 99 94 Oxygen Delivery Intake/Output Intake/Output: Intake & Output 04/08/25 04/09/25 04/10/25 04/11/25 23:59 23:59 23:59 23:59 Intake Total 2320 2470 1220 630 Balance 2320 2470 1220 630 Meds/Results Medications: Active Medications Generic Name Dose Route Start Last Admin Trade Name Freq PRN Reason Stop Dose Admin Acetaminophen 1,000 mg 04/06/25 15:22 Acetaminophen 500 Mg Tablet PO Q6H PRN Mild Pain (1-3) or Fever Dextrose 12.5 gm 04/06/25 19:22 Dextrose 50% 25 Gm/50 Ml Syringe IV PUSH PRN PRN Hypoglycemia Protocol Doxycycline Hyclate 100 mg 04/10/25 21:00 04/11/25 08:52 Doxycycline Hyclate 100 Mg Tablet PO 100 mg Q12HR SYLVIE Administration Fentanyl Citrate 25 mcg 04/06/25 17:39 Fentanyl Citrate Inj (*Crx) 100 Mcg/2 Ml Vial IV PUSH Q2M PRN Pain Fluoxetine HCl 20 mg 04/07/25 09:00 04/11/25 08:52 Fluoxetine Hcl 20 Mg Capsule PO 20 mg DAILY SYLVIE Administration Gabapentin 300 mg 04/06/25 22:00 04/11/25 08:52 Gabapentin 300 Mg Capsule PO 300 mg Q12HR SYLVIE Administration Glucagon 1 mg 04/06/25 19:22 Glucagon For Inj 1 Mg Vial IM PRN PRN Hypoglycemia Protocol Glucose 15 gm 04/06/25 19:22 Glucose Oral Gel 15 Gm Of Glucse In 37.5 Gm Tube PO PRN PRN Hypoglycemia Protocol Dextrose 1,000 mls @ 100 mls/hr 04/06/25 19:22 Dextrose 5% 1,000 Ml IVPB PRN PRN Hypoglycemia Protocol Ceftriaxone Sodium 2 gm/ 100 mls @ 200 mls/hr 04/10/25 14:00 04/10/25 14:35 Sodium Chloride IVPB 200 mls/hr Q24H SYLVIE Administration Insulin Aspart 2 - 5 units 04/09/25 17:00 04/11/25 08:53 Insulin Aspart (*Bkc) 100 Units/Ml SUB-Q 2 units TIDWM SYLVIE Administration Protocol Insulin Aspart 4 units 04/09/25 17:00 04/11/25 08:54 Insulin Aspart (*Bkc) 100 Units/Ml 0.05 units/kg (4 units) 4 units SUB-Q Administration TIDWM SYLVIE Insulin Glargine 25 units 04/06/25 22:10 04/10/25 17:15 Insulin Glargine (*Bkc) 100 Units/Ml SUB-Q 25 units QPM SYLVIE Administration Lisinopril 10 mg 04/07/25 09:00 04/11/25 08:53 Lisinopril 10 Mg Tablet PO 10 mg DAILY SYLVIE Administration Metronidazole 500 mg 04/10/25 14:00 04/11/25 06:39 Metronidazole 500 Mg Tablet PO 500 mg Q8HR SYLVIE Administration Morphine Sulfate 4 mg 04/06/25 15:22 04/08/25 06:42 Morphine Sulfate (*Crx) 4 Mg/Ml Inj IV PUSH 4 mg Q4H PRN Administration Pain Rated 7-10 IF NPO Morphine Sulfate 2 mg 04/10/25 10:23 Morphine Sulfate (*Crx) 4 Mg/Ml Inj IV PUSH Q2H PRN Pain Rated 4-6 Ondansetron HCl 4 mg 04/06/25 15:20 Ondansetron Inj 4 Mg/2 Ml Vial IV PUSH Q6H PRN Nausea And Vomiting Ondansetron HCl 4 mg 04/06/25 17:39 Ondansetron Inj 4 Mg/2 Ml Vial IV PUSH ONCE PRN Nausea Oxycodone HCl 5 mg 04/06/25 18:33 04/10/25 21:10 Oxycodone Hcl (*Crx) 5 Mg Tab Ir PO 5 mg Q4H PRN Administration Pain Rated 7-10 Rivaroxaban 20 mg 04/07/25 17:00 04/10/25 17:13 Rivaroxaban 20 Mg Tablet PO 20 mg DAILY@1700 SYLVIE Administration Simvastatin 20 mg 04/06/25 22:10 04/10/25 21:11 Simvastatin 20 Mg Tablet PO 20 mg HS SYLVIE Administration Sotalol HCl 80 mg 04/06/25 22:10 04/11/25 08:52 Sotalol Hcl 80 Mg Tablet PO 80 mg Q12HR SYLVIE Administration Labs Labs: Laboratory Results - last 24 hr 04/10/25 04/10/25 04/10/25 06:17 11:05 11:27 WBC 6.7 RBC 4.51 Hgb 12.2 Hct 38.6 MCV 85.6 MCH 27.1 MCHC 31.6 L RDW 13.5 Plt Count 214 MPV 10.2 Sodium Potassium Chloride Carbon Dioxide Anion Gap BUN Creatinine Estim Creat Clear Calc Estimated GFR Glucose POC Capillary Glucose 232 H Calcium Nasal MRSA (PCR) Not detected 04/10/25 04/10/25 04/11/25 16:27 20:00 06:07 WBC RBC Hgb Hct MCV MCH MCHC RDW Plt Count MPV Sodium 136 L Potassium 3.8 Chloride 99 Carbon Dioxide 31 H Anion Gap 6 BUN 10 Creatinine 0.34 L Estim Creat Clear Calc 160 Estimated GFR > 60 Glucose 251 H POC Capillary Glucose 233 H 291 H Calcium 8.5 Nasal MRSA (PCR) 04/11/25 06:43 WBC RBC Hgb Hct MCV MCH MCHC RDW Plt Count MPV Sodium Potassium Chloride Carbon Dioxide Anion Gap BUN Creatinine Estim Creat Clear Calc Estimated GFR Glucose POC Capillary Glucose 240 H Calcium Nasal MRSA (PCR) Quality VTE Prophylaxis VTE prophylaxis: pharmacologic ordered
--- NOTE | 2025-04-11 12:02 | WPDIDCN ---
Assessment and Plan Assessment and plan (1) Abscess of right groin: Code(s): L02.214 - Cutaneous abscess of groin Status: Acute Assessment and Plan: - Recurrent abscesses likely due to underlying hidradenitis suppurativa -No history of MDRO Infection -Current operative cultures without significant growth (aerobic culture) but no anaerobic culture sent (2) Hidradenitis suppurativa: Code(s): L73.2 - Hidradenitis suppurativa Status: Chronic Assessment and Plan: - management as per primary service - consider outpatient referral to Dermatology for management of Hidradenitis (3) PAF (paroxysmal atrial fibrillation): Code(s): I48.0 - Paroxysmal atrial fibrillation Status: Chronic Assessment and Plan: - Currently on Sotalol for rate/rhythm control and Xarelto for anticoagulation -Management as per primary service (4) DM2 (diabetes mellitus, type 2): Qualifiers: Diabetes mellitus complication status: with hyperglycemia Diabetes mellitus chcf insulin use: with terminal press operator use Qualified Code(s): E11.65 - Type 2 diabetes mellitus with hyperglycemia; Z79.4 - snf (current) use of insulin Code(s): E11.9 - Type 2 diabetes mellitus without complications Status: Chronic Assessment and Plan: Diabetes Melleitus Management as per primary service Plan -Continue Ceftriaxone/Metronidazole PO/Doxycycline PO while in-house - Can transition to Augmentin 8750mg po BID x 10 days and Doxycycline 100mg po BID x 10 days upon hospital discharge -Local wound care as per surgical service -DM management as per primary service Antimicrobial plan of care discussed with patient at bedside. All questions answered Discharge planning per primary service Patient was seen via video telehealth consultation with the assistance of staff. Chart, data, and patient independently reviewed. Patient was located at [facility] while I was located in [facility] office. Received verbal consent from patient. HPI Data of Consult Date/Time: 04/11/25 12:02 Requesting Physician: Jayden Mac MD Primary Care Provider: Genia Moran APRN Consult Narrative Reason for consult: Right groin abscesses Narrative: Whit Segovia is a 55 year old female with history of Hidradenitis Suppurativa, history of LLQ abdominal wall and left groin abscesses, DM type 2, elevated BMI who was admitted with right groin abscesses. She underwent operative debridement of three superficial right groin abscesses on 04/06/25 with cultures pending. She underwent a bedside debridement of right thigh abscess on 04/10/25. Patient has been on Ceftriaxone/Metronidazole PO for treatment of right groin abscesses and Doxycycline PO was added. She previously underwent drainage of left groin abscesses and left lower quadrant abdominal wall abscesses in January 2025 with cultures growing Prevotella bivia and Staph lugdunensis Today, she feels better but still has some soreness with dressing changes. Patient would like to go home. Review of Systems Review of Systems: All systems reviewed & are unremarkable except as noted in HPI and below PMFSH Past Medical History Medical History Hidradenitis suppurativa Chronic anticoagulation Paroxysmal atrial fibrillation Insulin dependent diabetes mellitus (2006) Pulmonary embolism Deep venous thrombosis Depression with anxiety Hyperlipidemia Hypertension Surgical History Surgical History Status post open reduction with internal fixation of fracture Right pinky fracture Hx of removal of cyst 01/06/25 Excision of left lower quadrant abdominal wall cyst with sinus tract and 12cm intermediate layered wound closure Dr. Mac History of dilation and curettage History of cholecystectomy History of tonsillectomy History of bilateral knee replacement 2004 Family History Family History Unknown Adopted Social History Social History Social History: The patient lives with her they have been together since 2009 in a been since 2014. She has a 30-year-old daughter.. 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 She has smoked 3-4 cigarettes a day since she was a teenager. She she drinks 1 alcoholic beverage a week. She uses medical marijuana gummies frequently. She denies any illicit substance use. Surrogate medical decision maker: Han Segovia, spouse. Code status: Full code. Smoking packs per day: 0.25 Smoking cigarettes per day: 5.0 Years smoked: 30 Smoking pack-years: 7.50 Smoking status: Current every day smoker Second hand tobacco smoke exposure: No Alcohol intake: current Drinks per week: 5 Substance use: current Substance use type: marijuana Other substance usage details: Gummies every once in awhile. Do You Feel Safe in your Home?: Yes Lack of Transportation: No Lack of Food: Never True Current Housing: I Have Housing Concerned About Future Housing: No Difficulty Paying Gas/Electric Bills: No Difficulty Paying for Meds: No Currently Unemployed: No Education: Bachelor's Degree Difficulty w/ Childcare or Family Care: No Living arrangements: with family Spiritual care concerns: No Meds Home Medications and Allergies Home Medications ?Medication ?Instructions ?Recorded ?Confirmed ?Type insulin lispro 100 unit/mL See Rx Instructions .Route 10/19/24 04/06/25 Rx subcutaneous pen .COMPLEX #15 mL fluoxetine 20 mg capsule 20 mg PO DAILY #90 caps 11/17/24 04/06/25 Rx gabapentin 300 mg capsule 300 mg PO Q12H #180 caps 11/17/24 04/06/25 Rx insulin glargine 100 unit/mL (3 25 unit (0.25 mL) subcut QPM #15 mL 11/17/24 04/06/25 Rx mL) subcutaneous pen (Lantus Solostar U-100 Insulin) lisinopril 10 mg tablet 10 mg PO DAILY #90 tabs 11/17/24 04/06/25 Rx simvastatin 20 mg tablet 20 mg PO HS #90 tabs 11/17/24 04/06/25 Rx sotalol 80 mg tablet See Rx Instructions .Route 11/17/24 04/06/25 Rx .COMPLEX #180 tabs metformin 1,000 mg tablet 1,000 mg PO BID #180 tabs 12/13/24 04/06/25 Rx pen needle, diabetic 31 gauge x See Rx Instructions miscellaneous 12/13/24 04/06/25 Rx 5/16 (TRUEplus Pen Needle) .COMPLEX #100 ea blood sugar diagnostic (Contour #50 ea 02/24/25 04/06/25 Rx Plus Test Strip) blood-glucose meter (Contour Plus #1 ea 02/24/25 04/06/25 Rx Blue Meter) lancets 28 gauge (Comfort EZ #100 ea 02/24/25 04/06/25 Rx Lancets) blood-glucose sensor (Dexcom G7 #9 ea 03/15/25 04/06/25 Rx Sensor device) rivaroxaban 20 mg tablet (Xarelto) 20 mg PO QPM #30 tabs 03/30/25 04/06/25 Rx levofloxacin 750 mg tablet 750 mg PO DAILY 14 days #14 tabs 04/05/25 04/06/25 Rx Allergies Allergy/AdvReac Type Severity Reaction Status Date / Time clindamycin Allergy Unknown Hives / Verified 04/06/25 16:41 Red Face celecoxib AdvReac Mild Unknown Verified 04/06/25 16:41 propoxyphene AdvReac Unknown Nausea and Verified 04/06/25 16:41 Vomiting sulfamethoxazole AdvReac Unknown Vomiting Verified 04/06/25 16:41 trimethoprim AdvReac Unknown Vomiting Verified 04/06/25 16:41 Vital Signs Vital Signs - 24 hr 04/10/25 14:00 04/10/25 20:00 04/10/25 21:11 Temperature 96.9 F L Pulse Rate 81 76 Respiratory Rate 18 Blood Pressure 110/55 L Pulse Oximetry 99 Oxygen Delivery Room Air 04/10/25 21:54 04/11/25 05:23 04/11/25 08:00 Temperature 97.5 F L 98.3 F Pulse Rate 75 74 Respiratory Rate 18 16 Blood Pressure 117/58 L 129/68 Pulse Oximetry 99 94 Oxygen Delivery Room Air 04/11/25 08:52 Temperature Pulse Rate 95 Respiratory Rate Blood Pressure Pulse Oximetry Oxygen Delivery Exam Narrative: Gen: NAD Pulm: no respiratory distress or tachypnea, no chest wall expansion Right groin: surgical sites with packing in place with small rim of erythema Ext: mild edema Derm: no papular rash Results Labs 04/10/25 06:17 04/11/25 06:07 Labs: BMP 04/11/25 06:07 Sodium 136 L Potassium 3.8 Chloride 99 Carbon Dioxide 31 H BUN 10 Creatinine 0.34 L Glucose 251 H Calcium 8.5
[2025-04-11] MEDS: INSULIN ASPART (*BKC) 100 UNITS/ML 8 UNITS SUB-Q (12:17)
[2025-04-11] MEDS: cefTRIAXone 2 GM in SODIUM CHLORIDE 0.9% IV 100 ML 200 ML IVPB (13:41)
[2025-04-11 14:00] VITALS: BP 103/57; PULSE 86; RESP 16; TEMP 36.6; O2SAT 97
--- NOTE | 2025-04-11 22:05 | PM.DS ---
DS: Admitting Diagnosis Discharge Date 04/11/25 Admitting Diagnosis abscess of right groin DS: Discharge Diagnosis Discharge Diagnosis (1) Type 2 diabetes mellitus with hyperglycemia, with long-term current use of insulin: Code(s): E11.65 - Type 2 diabetes mellitus with hyperglycemia; Z79.4 - halfway (current) use of insulin Status: Acute (2) Hidradenitis suppurativa: Code(s): L73.2 - Hidradenitis suppurativa Status: Chronic (3) Abscess of right groin: Code(s): L02.214 - Cutaneous abscess of groin Status: Acute DS: Summary Hospital Course Reason for hospitalization: Patient presented to the general surgery office on 04/06 for evaluation after she developed increased redness, swelling, and pain on her right upper medial thigh in her groin crease. Patient states that she had been experiencing these symptoms for roughly a week. She called the office a day before her appointment and was started on Levaquin. Patient has history of hidradenitis suppurativa and complex abscesses and previously had a complex left groin abscess I&D with Dr Leal on 02.08.25. She had I&D of left axilla abscess during this admission as well. Upon presentation to the office on 04/06, it was noted that patient would need IV antibiotic treatment as well as surgical treatment. Hospital Course: Patient was admitted to the floor and hospitalist team was consulted for medical management. Her labs demonstrated a WBC count of 18.9. She was started on cefepime and vancomycin. Patient was put on the surgery schedule the same evening for incision and drainage of right groin abscesses in the OR. Patient was found to have 3 subcutaneous abscesses located in the mons pubis in the superior right groin crease and then the inferior right groin crease on the medial side of the right thigh. After incision and drainage, all abscess cavities were packed with 1/4 in iodoform gauze and covered with 4x4 gauze and ABD pads and taped down. The patient tolerated the procedure well and was taken to recovery in stable condition. She was then transferred to a room on the [facility] floor for further monitoring. Xarelto weas resumed postoperatively. Analgesics prescribed prn - Tylenol, oxycodone, and morphine. Patient remained stable overnight with [place] [address]. Cultures pending. She did have a low grade fever with Tmax of 38.1. This was resolved by 04/08/25. Wounds continued to improve with daily packing changes [place] [address]. Vancomycin continued. Nasal MRSA swab negative. On 04/10, a new small abscess near the superior right groin abscess was noted on the upper anterior thigh. A bedside I&D of this area was performed. This was then also packed with 1/4 in iodoform gauze. Patient tolerated procedure well. Antibiotic regimen was discussed with ID pharmacist d/t concern for inappropriate coverage. Abscess cultures from surgery still pending at this time. Gram stain showing gram positive cocci and gram negative rods. Previous cultures from January grew Prevotella and Staphylococcus lugdunesis. Antibiotics were then adjusted to Ceftriaxone and flagyl. Doxycycline was also added due to a new flare of hidradenitis suppurativa to her right axilla. The following day, aerobic cultures did not have any growth. For unknown reason, no aerobic cultures were obtained. Infectious disease team was consulted. They recommended oral transition to Augmentin and Doxycycline upon discharge. Patient surgically stable for discharge with follow up in outpatient office with Dr. Mac in 1 week. She was prescribed course of oral antibiotics. Status at Discharge Functional status at discharge: independent ambulation Time Spent with Patient Time attestation: Total time spent providing and/or coordinating discharge services: Time spent: Greater than 30 minutes Exam Const: General: comfortable and no acute distress Eyes: General: appearance normal, both eyes and all related structures Resp: Effort & Inspection: normal respiratory effort Cardio: Rate: regular rate Skin: General skin exam: normal color Other: Right axillary pits and scarring consistent with hidradenitis, with about a golf ball-sized area of swelling and very mild erythema. Patient states that this popped earlier in the day. No drainage noted upon exam. Right groin dressings, as well as right upper anterior thigh dressing clean and with packing intact. Three abscesses with no purulence drainage and overall erythema improved. Distal aspect of right inferior groin abscess with some induration. Extrem: General: normal to inspection Psych: Mental Status: mental status grossly normal DS: Data Data Completed and Pending Labs on day of discharge: Labs from last 24 hours 09/23/25 09/23/25 09/23/25 11:34 06:43 06:07 Sodium 136 L Potassium 3.8 Chloride 99 Carbon Dioxide 31 H Anion Gap 6 BUN 10 Creatinine 0.34 L Estim Creat Clear Calc 160 Estimated GFR > 60 Glucose 251 H POC Capillary Glucose 344 H 240 H Calcium 8.5 Procedures/Treatments: Procedures Operation Date: 04/06/25 17:15 Actual Procedure Side Surgeon p Irrigation & Drainage Mulitple Right Groin Abcesses Right Jayden Mac MD Discharge Plan Discharge Attending physician on discharge: Jayden Mac Consulting providers: Bree Roca; Alba Walter; Black Frazier Discharging Clinician: Ana Carty Patient Disposition: Home Activity: november shower Diet: diabetic Wound Care Instructions: follow printed instructions Discharge Instructions: Keep wounds clean and dry. Change 1/4 inch iodoform packing once daily. Cover with dry gauze, ABD pad, and hypoallergenic tape. Okay to shower. Remove packing beforehand and repack afterwards. Resume all home medications. Antibiotics were sent to pharmacy. Please pick these up and take them as prescribed. Take Tylenol and Ibuprofen for pain as needed. Continue eating a diabetic consistent carbohydrate diet. Follow-up with PCP for diabetes control. Call to schedule follow-up appointment with Dr. Mac in 1 week. Office phone number is . Call the office or present to the emergency department if you experience any nausea/vomiting, fevers, bleeding, or increased pain or pus-like drainage from the wounds. Patient Instructions: Antibiotic Form, Meal Planning with Diabetes Exchanges (DC) Patient Language: Khmer Stand Alone Forms: General Discharge Information Follow-up/Referrals: Genia Moran APRN [Primary Care Provider, Family Practice] - 2 Weeks Referral Note: Diabetes control Jayden Mac MD [Physician, General Surgery] - 1 Week Referral Note: Call to schedule appointment Discharge Medications: New amoxicillin-pot clavulanate 875-125 mg tablet 1 tablet PO Q12H Qty: 28 0RF doxycycline hyclate 100 mg capsule 100 mg PO Q12H Qty: 28 0RF Continued (DME) Dexcom G7 Sensor Device See Rx Instructions .Route Qty: 9 12RF Rx Instructions: once every 10 days fluoxetine 20 mg capsule 20 mg PO DAILY Qty: 90 3RF gabapentin 300 mg capsule 300 mg PO Q12H Qty: 180 3RF insulin glargine [Lantus Solostar U-100 Insulin] 100 unit/mL (3 mL) insulin pen 25 unit subcut QPM Qty: 15 3RF lisinopril 10 mg tablet 10 mg PO DAILY Qty: 90 3RF simvastatin 20 mg tablet 20 mg PO HS Qty: 90 3RF sotalol 80 mg tablet See Rx Instructions .ROUTE .COMPLEX Qty: 180 3RF Dose Instruction: TAKE 1 TABLET BY MOUTH EVERY 12 HOURS Rx Instructions: TAKE 1 TABLET BY MOUTH EVERY 12 HOURS insulin lispro 100 unit/mL insulin pen See Rx Instructions .ROUTE .COMPLEX Qty: 15 5RF Dose Instruction: USE PER SLIDING SCALE PROVIDED BY OFFICE, MAX OF 25 UNITS/MEAL AND MAX OF 75 UNITS/DAY. Rx Instructions: 8 units TID with SLIDING SCALE PROVIDED BY OFFICE, MAX OF 25 UNITS/MEAL AND MAX OF 75 UNITS/DAY. metformin 1,000 mg tablet 1,000 mg PO BID Qty: 180 3RF pen needle, diabetic [TRUEplus Pen Needle] 31 gauge x 5/16 needle See Rx Instructions miscellaneous .COMPLEX Qty: 100 6RF Rx Instructions: four times daily (DME) blood-glucose meter [Contour Plus Blue Meter] Misc See Rx Instructions .Route Qty: 1 0RF Rx Instructions: daily (DME) Contour Plus Test Strip Strip See Rx Instructions .Route Qty: 50 5RF Rx Instructions: daily (DME) lancets [Comfort EZ Lancets] 28 gauge misc See Rx Instructions .Route Qty: 100 5RF Rx Instructions: daily Xarelto 20 mg tablet 20 mg PO QPM Qty: 30 0RF Rx Instructions: must administer with evening meal Discontinued levofloxacin 750 mg tablet 750 mg PO DAILY 14 Days Qty: 14 0RF Date of admission: 04/06/25 17:54 Primary Care Provider: Genia Moran Admitting Provider: Jayden Mac Attending physician on admission: Jayden Mac Condition: Stable
== END 2025-04-11 15:50 | disposition home or self-care (01) | DRG 383 ==
PROVIDERS: Nurse Practitioner Family; Student in an Organized Health Care Education/Training Program; Admitting Provider Surgery; PCP Nurse Practitioner Family
PROC: 0J9C0ZX Drainage of Pelvic Region Subcutaneous Tissue and Fascia, Open Approach, Diagnostic (ICD-10-PCS; principal; 2025-04-06 17:15)
DX: L02.214 Cutaneous abscess of groin (principal); E11.65 Type 2 diabetes mellitus with hyperglycemia; I48.0 Paroxysmal atrial fibrillation; L73.2 Hidradenitis suppurativa; I10 Essential (primary) hypertension; F17.210 Nicotine dependence, cigarettes, uncomplicated; Z96.653 Presence of artificial knee joint, bilateral; Z79.01 Long term (current) use of anticoagulants; Z79.4 Long term (current) use of insulin; Z86.711 Personal history of pulmonary embolism; Z86.718 Personal history of other venous thrombosis and embolism; Z90.49 Acquired absence of other specified parts of digestive tract
CPT/HCPCS: 36415; 80048; 80053; 80202; 82565; 82948; 83036; 85025; 85027; 85610; 85730; 87070; 87205; 87641; A9270; J0692; J0696; J1100; J1815; J1885; J2003; J2004; J2270; J2405; J2704; J3010; J3373; J7050; J7120